=== PATIENT | male | born 1960 | race American Indian/Alaskan Native ===

== ENCOUNTER 2017-03-21 08:26 | Emergency (ER) | payer MEDICAID, MEDICARE ==
[2017-03-21 08:48] VITALS: BP 149/96; PULSE 95; RESP 18; TEMP 97.8; O2SAT 98
--- NOTE | 2017-03-21 08:58 | C.PDOC ---
History Of Present Illness 56 year old male presents to the ED requesting medication refill. Patient states insurance is pending and has been unable to see PMD. He is seeking refill of Humalog 75/25. Patient also seeking evaluation of recurrent penile rash for two weeks. Patient states "I get this from my diabetes." He has been using lotrimin over the counter of two weeks with no relief. Patient denies fever, penile discharge, itch, or other physical complaints at this time. REQUESTING MED REFILL. PS PENDING INSURANCE, UNABLE TO SEE PMD. REFILL FOR HUMALOG 75/25. ALSO CO RECUR PENILE RASH X 2 WEEKS. PS "I GET THIS FROM MY DIABETES." NO ITCH, PENILE DC, FEVER. NO RELIEF W LOTRIMIN OTC X 2 WEEKS. EXAM NAD SKIN +BALANITIS PENIS W LOCAL EXCORIATION UNCIRCUM; NO DC Time Seen by Provider: 03/21/17 08:39 Chief Complaint (Nursing): Med Refill History Per: Patient History/Exam Limitations: no limitations Onset/Duration Of Symptoms: Days (two weeks of penile rash ) Current Symptoms Are (Timing): Still Present Recent travel outside of the [place]: No Past Medical History Reviewed: Historical Data, Nursing Documentation, Vital Signs Vital Signs: Last Vital Signs Temp 97.8 F 03/21/17 08:37 Pulse 95 H 03/21/17 08:37 Resp 18 03/21/17 08:37 BP 149/96 H 03/21/17 08:37 Pulse Ox 98 03/21/17 09:00 - Medical History PMH: Gastrointestinal Ulcer Surgical History: Appendectomy Family History: States: Unknown Family Hx - Social History Hx Alcohol Use: Yes Hx Substance Use: No Review Of Systems Constitutional: Negative for: Fever, Chills Cardiovascular: Negative for: Chest Pain, Palpitations Respiratory: Negative for: Cough, Shortness of Breath Gastrointestinal: Negative for: Nausea, Vomiting, Abdominal Pain Genitourinary: Positive for: Rash (penile rash ). Negative for: Penile Discharge Physical Exam - Physical Exam Appears: Non-toxic, No Acute Distress Skin: Warm, Dry, Other ( +balanitis penis with local excoriation ) Head: Atraumatic Eye(s): bilateral: Normal Inspection Oral Mucosa: Moist Neck: Supple Chest: Symmetrical, No Deformity Cardiovascular: Rhythm Regular Respiratory: Normal Breath Sounds, No Rales, No Rhonchi, No Stridor Male Genital: No Circumcised (patient is uncircumcised), Other (no penile discharge ) ED Course And Treatment O2 Sat by Pulse Oximetry: 98 (room air ) Disposition Counseled Patient/Family Regarding: Diagnosis, Need For Followup, Rx Given - Disposition Referrals: YOUR,PMD [Other] Disposition: HOME/ ROUTINE Disposition Time: 08:59 Condition: GOOD Prescriptions: Cephalexin [cephalexin] 500 mg PO BID #14 cap Insulin Lispro Mix 75/25 [humalog Mix 75/25 75 U/Ml-25 U/Ml 10 Ml] 30 units SC Q12 #5 vial Miconazole CR [Miconazole 2% CREAM] 30 applic TP BID #1 tube Instructions: Balanitis (ED), Medicine Refill (ED) Forms: [employer] ([place]an) - Clinical Impression Clinical Impression: Balanitis, Medicine refill - Scribe Statement The provider has reviewed the documentation as recorded by the Scribe Maryana Martinez All medical record entries made by the Scribe were at my direction and personally dictated by me. I have reviewed the chart and agree that the record accurately reflects my personal performance of the history, physical exam, medical decision making, and the department course for this patient. I have also personally directed, reviewed, and agree with the discharge instructions and disposition.
== END 2017-03-21 09:21 | disposition home or self-care (01) ==
LOC: C.ER 08:26
DX: Z76.0 Encounter for issue of repeat prescription (principal); N48.1 Balanitis

== ENCOUNTER 2017-06-19 21:30 | Emergency (ER) | payer SELFPAY ==
[2017-06-19 21:45] VITALS: RESP 18
[2017-06-19 22:05] LABS: BASO % 0.9 % (0.0-2.0); EOS # 0.1 K/uL (0.0-0.7); EOS % 2.7 % (0.0-4.0); LYMPH # 2.2 K/uL (1.0-4.3); LYMPH % 44.4 % (20.0-40.0); MEAN CORPUSCULAR HEMOGLOBIN 29.4 pg (27.0-31.0); MEAN CORPUSCULAR HGB CONC 33.4 g/dL (33.0-37.0); MEAN PLATELET VOLUME 8.6 fL (7.2-11.7); MONO # 0.4 K/uL (0.0-0.8); MONO % 7.7 % (0.0-10.0); NRBC % 0.2 % (0.0-2.0); RED CELL DISTRIBUTION WIDTH 13.4 % (11.5-14.5); WHITE BLOOD COUNT 4.9 K/uL (4.8-10.8)
[2017-06-19] MEDS ORDERED: Aluminum Hydroxide/Magnesium Hydroxide Susp (30 mL) PO STA (22:10)
[2017-06-19] MEDS ORDERED: Sodium Chloride 0.9% 1,000 ML IV ONE (22:10)
[2017-06-19] MEDS ORDERED: Belladonna-Phenobarbital PO STA (22:10)
[2017-06-19 22:16] LABS: ALB/GLOB RATIO 1.3 (1.0-2.1); BILIRUBIN,TOTAL 1.1 mg/dL (0.2-1.3); CALCIUM 8.8 mg/dl (8.6-10.4); POTASSIUM 4.3 mmol/L (3.6-5.2); TOTAL PROTEIN 7.4 g/dL (6.3-8.3)
[2017-06-19] MEDS ORDERED: Belladonna-Phenobarbital ONE (22:25)
[2017-06-19] MEDS ORDERED: Sodium Chloride 0.9% 1,000 ML ONE (22:26)
[2017-06-19] MEDS ORDERED: Aluminum Hydroxide/Magnesium Hydroxide Susp (30 mL) ONE (22:26)
[2017-06-20 00:05] VITALS: BP 160/89; PULSE 73; TEMP 98; O2SAT 100
--- NOTE | 2017-06-20 01:04 | C.PDOC ---
History Of Present Illness 56 year old male with a Hx diabetes on insulin and of gastritis presents to the ER with a complaint of epigastric pain that is similar to past episodes of his gastritis flare ups. Patient reports he has been eating normally and notes he usually takes nexium. Denies chest pain, SOB, nausea, or vomiting. Chief Complaint (Nursing): Abdominal Pain History Per: Patient History/Exam Limitations: no limitations Onset/Duration Of Symptoms: Days Current Symptoms Are (Timing): Still Present Location Of Pain/Discomfort: Epigastric Radiation Of Pain To:: None Quality Of Discomfort: Unable To Describe Associated Symptoms: denies: Fever, Chills, Nausea, Vomiting, Chest Pain Exacerbating Factors: None Alleviating Factors: None Recent travel outside of the [place]: No Past Medical History Reviewed: Historical Data, Nursing Documentation, Vital Signs Vital Signs: Last Vital Signs Temp 98.0 F 06/20/17 00:04 Pulse 73 06/20/17 00:04 Resp 18 06/20/17 00:04 BP 160/89 H 06/20/17 00:04 Pulse Ox 100 06/20/17 01:07 - Medical History PMH: Gastritis, Gastrointestinal Ulcer Surgical History: Appendectomy Family History: States: Unknown Family Hx - Social History Hx Alcohol Use: Yes Hx Substance Use: Yes - Immunization History Hx Tetanus Toxoid Vaccination: Yes Hx Influenza Vaccination: No Hx Pneumococcal Vaccination: No Review Of Systems Constitutional: Negative for: Fever, Chills Cardiovascular: Negative for: Chest Pain Respiratory: Negative for: Shortness of Breath Gastrointestinal: Positive for: Abdominal Pain. Negative for: Nausea, Vomiting Physical Exam - Physical Exam Appears: Non-toxic, No Acute Distress Skin: Normal Color, Warm, Dry Head: Atraumatic, Normacephalic Eye(s): bilateral: Normal Inspection Oral Mucosa: Moist Neck: Normal, Supple Chest: Symmetrical, No Tenderness Cardiovascular: Rhythm Regular Respiratory: Normal Breath Sounds, No Rales, No Rhonchi, No Wheezing Gastrointestinal/Abdominal: Soft, No Tenderness Neurological/Psych: Oriented x3, Normal Speech, Normal Cognition ED Course And Treatment - Laboratory Results Result Diagrams: 06/19/17 22:02 06/19/17 22:02 O2 Sat by Pulse Oximetry: 100 (Room air) Pulse Ox Interpretation: Normal Progress Note: Blood work ordered. Zofran, , maalox, viscous lidocaine, IV fluids, and pepcid administered. Disposition - Disposition Referrals: [facility] [Outside] [facility] [Outside] Disposition: HOME/ ROUTINE Disposition Time: 22:50 Condition: IMPROVED Additional Instructions: Thank you for letting us take care of you today. The emergency medical care you received today was directed at your acute symptoms. If you were prescribed any medication, please fill it and take as directed. It may take several days for your symptoms to resolve. Return to the Emergency Department if your symptoms worsen, do not improve, or if you have any other problems. Please contact your doctor or call one of the physicians/clinics you have been referred to that are listed on the Patient Visit Information form that is included in your discharge packet. Bring any paperwork you were given at discharge with you along with any medications you are taking to your follow up visit. Our treatment cannot replace ongoing medical care by a primary care provider (PCP) outside of the emergency department. Thank you for allowing the [facility] team to be part of your care today. Follow up with the clinic next week for outpatient care and further management. Prescriptions: Ranitidine HCl [Zantac] 150 mg PO BID #20 tablet Instructions: Gastritis (ED) - Clinical Impression Clinical Impression: Gastritis - Scribe Statement The provider has reviewed the documentation as recorded by the Scribjamie Mohan All medical record entries made by the Laureenibjamie were at my direction and personally dictated by me. I have reviewed the chart and agree that the record accurately reflects my personal performance of the history, physical exam, medical decision making, and the department course for this patient. I have also personally directed, reviewed, and agree with the discharge instructions and disposition.
== END 2017-06-20 00:06 | disposition home or self-care (01) ==
LOC: C.ER 21:30
DX: K29.70 Gastritis, unspecified, without bleeding (principal); E11.9 Type 2 diabetes mellitus without complications; Z79.4 Long term (current) use of insulin
CPT/HCPCS: 80053; 83690; 85025; 96374; 96375; 99284; J2405; J7040

== ENCOUNTER 2017-07-31 18:59 | Emergency (ER) | payer SELFPAY ==
[2017-07-31 19:33] VITALS: TEMP 98
--- NOTE | 2017-07-31 19:51 | C.PDOC ---
History Of Present Illness 57M c/o blister on right great toe he noticed 3 days ago. he has little sensation in his feet at baseline. no fever or pain. he is also requesting refill for rx for his humalog 75/25 30units BID and also omeprazole. Time Seen by Provider: 07/31/17 19:37 Chief Complaint (Nursing): Abnormal Skin Integrity Past Medical History Vital Signs: Last Vital Signs Temp 98 F 07/31/17 19:20 Pulse 82 07/31/17 20:33 Resp 18 07/31/17 20:33 BP 156/81 H 07/31/17 20:33 Pulse Ox 98 07/31/17 20:33 - Medical History PMH: Gastritis, Gastrointestinal Ulcer Denies: Chronic Kidney Disease Surgical History: Appendectomy Family History: States: Other Other Family History: nc - Social History Hx Alcohol Use: Yes Hx Substance Use: No - Immunization History Hx Tetanus Toxoid Vaccination: Yes Hx Influenza Vaccination: No Hx Pneumococcal Vaccination: No Review Of Systems Constitutional: Negative for: Fever, Chills Cardiovascular: Negative for: Chest Pain Respiratory: Negative for: Shortness of Breath Gastrointestinal: Negative for: Nausea, Vomiting Physical Exam - Physical Exam Appears: Well, Non-toxic, No Acute Distress Skin: Warm, Dry Cardiovascular: Rhythm Regular Respiratory: No Accessory Muscle Use Extremity: Other (threre is a superficial 1cm partially exposed blister medial aspect right great toe. no erythema, swelling, or drainage.) Pulses: Right Dorsalis Pedis: Normal Neurological/Psych: Oriented x3, Other (no focal deficits) ED Course And Treatment O2 Sat by Pulse Oximetry: 99 Medical Decision Making Medical Decision Making: superficial blister without signs of infection applied protective bandage and disc w pt critical importance of daily inspection /wound care to prevent worsening ulceration and infection disc rtr. pt follows up in clinic. rx refills provided. Disposition - Disposition Referrals: [facility] [Outside] Disposition: HOME/ ROUTINE Disposition Time: 20:34 Condition: GOOD Additional Instructions: Please follow up with your doctor. Clean your wound and change bandage daily while checking for signs of infection: redness, green/yellow drainage, swelling. Return to the ER for any worsening symptoms, fever, signs of infection , or for any other concerns. Prescriptions: Insulin Lispro Mix 75/25 [HumaLog MIX 75/25] 30 units SC BID #4 vial Omeprazole 40 mg PO DAILY #30 capsule. Instructions: Diabetic Foot Care (ED), Diabetic Foot Ulcers (ED) Forms: General Discharge Instructions, [facility] (Citizen Of [place]) - Clinical Impression Clinical Impression: Beena
[2017-07-31] MEDS ORDERED: Bacitracin 500 Units/gm Oint Foilpak UD ONE (20:21)
[2017-07-31 20:34] VITALS: BP 156/81; PULSE 82; RESP 18
[2017-08-07 13:56] VITALS: O2SAT 99
== END 2017-07-31 20:34 | disposition home or self-care (01) ==
LOC: C.ER 18:59
DX: S90.421A Blister (nonthermal), right great toe, initial encounter (principal); X58.XXXA Exposure to other specified factors, initial encounter

== ENCOUNTER 2017-08-20 00:22 | Inpatient (IN) | payer MEDICARE ==
[2017-08-20] MEDS ORDERED: Sodium Chloride 0.9% 1,000 ML IV ONE (00:48)
[2017-08-20] MEDS ORDERED: Cefepime 1 GM in Sodium Chloride 0.9% 50 ML IVPB STA (00:51)
[2017-08-20] MEDS ORDERED: Vancomycin 1 GM 1 GM/250 ML BAG IV STA (00:51)
[2017-08-20] MEDS ORDERED: Vancomycin 1 gm/NS 200 ml 1 GM/200 ML BAG IVPB STA (00:59)
[2017-08-20] MEDS ORDERED: Cefepime IV 1 gm in Dextrose 1 GM/50 ML BAG IVPB ONE (01:00)
[2017-08-20] MEDS ORDERED: Sodium Chloride 0.9% 1,000 ML ONE (01:01)
[2017-08-20 01:10] LABS: VENOUS BLOOD GAS BASE EXCESS 4.8 mmol/L (0.0-2.0); VENOUS BLOOD GAS PCO2 60 mmHg (40-60); VENOUS BLOOD GAS PO2 18 mm/Hg (30-55); VENOUS BLOOD PH 7.34 (7.32-7.43)
[2017-08-20 01:16] LABS: BASO % 0.7 % (0.0-2.0); EOS # 0.1 K/uL (0.0-0.7); EOS % 2.4 % (0.0-4.0); HEMOGLOBIN 13.7 g/dL (12.0-18.0); LYMPH # 1.9 K/uL (1.0-4.3); LYMPH % 39.9 % (20.0-40.0); MEAN CELL VOLUME 86.1 fL (80.0-94.0); MEAN CORPUSCULAR HEMOGLOBIN 28.8 pg (27.0-31.0); MEAN CORPUSCULAR HGB CONC 33.5 g/dL (33.0-37.0); MEAN PLATELET VOLUME 8.2 fL (7.2-11.7); MONO # 0.3 K/uL (0.0-0.8); NEUT # 2.3 K/uL (1.8-7.0); NRBC % 0.1 % (0.0-2.0); RBC 4.75 Mil/uL (4.40-5.90); RED CELL DISTRIBUTION WIDTH 13.1 % (11.5-14.5); WHITE BLOOD COUNT 4.7 K/uL (4.8-10.8)
[2017-08-20 01:28] LABS: ALB/GLOB RATIO 1.1 (1.0-2.1); ALBUMIN 3.9 g/dL (3.5-5.0); ALT/SGPT 21 U/L (21-72); AST/SGOT 22 U/L (17-59); BLOOD UREA NITROGEN 22 mg/dL (9-20); CALCIUM 8.3 mg/dl (8.6-10.4); GFR AFRICAN-AMERICAN > 60; GFR NON-AFRICAN AMERICAN > 60
[2017-08-20] MEDS ORDERED: (Novolin R) Insulin Human Regular 100 units/ml vial IV STA (02:00)
[2017-08-20] MEDS ORDERED: (Novolin R) Insulin Human Regular 100 units/ml vial ONE (02:07)
--- NOTE | 2017-08-20 02:59 | C.PDOC ---
History Of Present Illness Patient presents to ED c/o right big toe wound for approx 1 month. Patient has h/o DM II, gastritis, PUD, prior osteomyelitis and toe amputation (Dr. Little). He states the wound has become more painful, swollen and is draining. He denies fever, trauma/injuries. Time Seen by Provider: 08/20/17 00:24 Chief Complaint (Nursing): Lower Extremity Problem/Injury History Per: Patient History/Exam Limitations: no limitations Current Symptoms Are (Timing): Still Present Severity: Moderate Past Medical History Reviewed: Historical Data, Nursing Documentation, Vital Signs Vital Signs: Last Vital Signs Temp 98 F 08/20/17 00:34 Pulse 74 08/20/17 00:34 Resp 18 08/20/17 00:34 BP 127/83 08/20/17 00:34 Pulse Ox 98 08/20/17 03:07 - Medical History PMH: Diabetes, Gastritis, Gastrointestinal Ulcer Other PMH: osteomyelitis Surgical History: Appendectomy Family History: States: No Known Family Hx - Social History Hx Alcohol Use: Yes Hx Substance Use: No - Immunization History Hx Tetanus Toxoid Vaccination: Yes Hx Influenza Vaccination: No Hx Pneumococcal Vaccination: No Review Of Systems Except As Marked, All Systems Reviewed And Found Negative. Constitutional: Negative for: Fever, Chills Cardiovascular: Negative for: Chest Pain Respiratory: Negative for: Shortness of Breath Neurological: Positive for: Other (right toe pain, swelling, wound) Physical Exam - Physical Exam Appears: Well, Non-toxic, In Acute Distress (in mild pain ) Oral Mucosa: Moist Cardiovascular: Rhythm Regular Respiratory: Normal Breath Sounds, No Rales, No Rhonchi, No Wheezing Extremity: Tenderness, No Pedal Edema, No Calf Tenderness, Other (right first toe - medial aspect approx 1.5 cm wound with surrounding erythema and swelling) Pulses: Left Dorsalis Pedis: Normal, Right Dorsalis Pedis: Normal Neurological/Psych: Oriented x3 ED Course And Treatment - Laboratory Results Result Diagrams: 08/20/17 01:03 08/20/17 01:03 O2 Sat by Pulse Oximetry: 98 (RA) Pulse Ox Interpretation: Normal Progress Note: Blood work, Xray of foot ordered and reviewed. Patient given IV Vancomycin, IV cefepime. Patient has previously seen Dr. Little for podiatry and Dr. Vaughan (PMD), but has not done so in months due to insurance issues. - Physician Consult Information Physician Contacted: Kaushik Diego Outcome Of Conversation: Discussed patient with hospitalist, agrees with admission for right toe cellulitis/diabetic wound, possible osteomyelitis. Disposition - Disposition Referrals: Non [facility] Provider, [Primary Care Provider] - Forms: [employer] (Croatian)
--- NOTE | 2017-08-20 04:33 | CP.PCM.HP ---
<Chai Gastelum E - Last Filed: 08/20/17 04:53> History of Present Illness - History of Present Illness History of Present Illness: CC: Right Hallux wound and drainage HPI: Patient is a 57 year old male with past medical history of DM, gastritis, pud, b/l halluces osteomyelitis, who presents to the ED with complaints of right hallux wound and drainage that has been going on for approximately 3 weeks. Patient was evaluated in the ED on 07/31/17 for the same complaints and was discharge with instruction to keep the wound clean with peroxide & Neosporin with daily dressing changes. Upon discharge from the ED on 07/31/16, patient was given prescription for humalog 70/30 30 units SC BID and omeprazole 40mg PO daily. Patient states that his right hallux wound has worsened with mild clear malodorous discharge. Patient denies fever, chills, nausea, vomiting , headache, chest pain, palpitation, SOB, abdominal pain, recent travel or sickness, polydispia, polyphagia, polyuria and pain. Patient does admits to right hallux swelling, numbness and tingling, mild decrease of sensation and clear malodorous discharge. PMD: None for the past 6 months- 1 year. Patient was given an appointment for at the [facility] but did not make it to the appointment PMHx: DM, gastritis, pud, b/l halluces osteomyelitis, PSHx: Right 2nd toe amputations (By Dr. Little), Appendectomy, B/L halluces infected bone removal FHx: Father and Sister ( DM); Maternal family: HTN and maternal grandmother: CVA Medications: humalog 70/30 30 units SC BID and omeprazole 40mg PO daily as prescribed by the ED Allergies: NKDA Social Hx : Lives with fiance, unemployed. 30 years tobacco use ( 1PPD, quit smoking 6 years ago), 2 beers and 2 shot of whiskey daily, 15 yrs use of marijuan and cocaine intranasal Present on Admission - Present on Admission Any Indicators Present on Admission: Yes History of Uncontrolled Diabetes: Yes Review of Systems - Constitutional Constitutional: absent: Chills, Fatigue, Fever, Headache, Weakness - EENT Eyes: absent: Blurred Vision - Cardiovascular Cardiovascular: absent: Chest Pain, Chest Pain at Rest, Chest Pain with Activity , Diaphoresis, Dyspnea, Dyspnea on Exertion, Palpitations - Respiratory Respiratory: absent: Dyspnea - Gastrointestinal Gastrointestinal: absent: Abdominal Pain, Nausea, Vomiting - Musculoskeletal Musculoskeletal: Numbness, Tingling - Neurological Neurological: Numbness, Paresthesias, Tingling, Weakness - Endocrine Endocrine: absent: Fatigue, Palpitations, Polydipsia, Polyphagia, Polyuria Past Patient History - Infectious Disease Hx of Infectious Diseases: None - Past Social History Smoking Status: Former Smoker - CARDIAC Hx Cardiac Disorders: No - PULMONARY Hx Respiratory Disorders: No - NEUROLOGICAL Hx Neurological Disorder: No - HEENT Hx HEENT Problems: No - RENAL Hx Chronic Kidney Disease: No - ENDOCRINE/METABOLIC Hx Endocrine Disorders: Yes Hx Diabetes Mellitus Type 2: Yes - HEMATOLOGICAL/ONCOLOGICAL Hx Blood Disorders: No - INTEGUMENTARY Hx Dermatological Problems: No - MUSCULOSKELETAL/RHEUMATOLOGICAL Hx Musculoskeletal Disorders: No - GASTROINTESTINAL Hx Gastritis: Yes - GENITOURINARY/GYNECOLOGICAL Hx Genitourinary Disorders: No - PSYCHIATRIC Hx Substance Use: No - SURGICAL HISTORY Hx Appendectomy: Yes - ANESTHESIA Hx Anesthesia: Yes Hx Anesthesia Reactions: No Meds Allergies/Adverse Reactions: Allergies Allergy/AdvReac Type Severity Reaction Status Date / Time No Known Allergies Allergy Verified 08/20/17 00:29 Physical Exam - Constitutional Appears: No Acute Distress - Head Exam Head Exam: ATRAUMATIC, NORMAL INSPECTION - Eye Exam Eye Exam: EOMI, Normal appearance - ENT Exam ENT Exam: Mucous Membranes Moist - Respiratory Exam Respiratory Exam: Clear to Auscultation Bilateral, NORMAL BREATHING PATTERN. absent: Decreased Breath Sounds, Rhonchi, Wheezes, Respiratory Distress - Cardiovascular Exam Cardiovascular Exam: REGULAR RHYTHM, +S1, +S2. absent: Diastolic murmur, Systolic Murmur - GI/Abdominal Exam GI & Abdominal Exam: Normal Bowel Sounds, Soft. absent: Distended, Guarding, Organomegaly, Tenderness - Extremities Exam Additional comments: Right toe mildly warm to touch, mild drainage and swollen - Back Exam Back exam: absent: CVA tenderness (L), CVA tenderness (R) - Neurological Exam Neurological exam: Alert, Oriented x3 - Psychiatric Exam Psychiatric exam: Normal Affect - Skin Skin Exam: Intact, Normal Color Results - Vital Signs Recent Vital Signs: Last Vital Signs Temp 98 F 08/20/17 00:34 Pulse 74 08/20/17 00:34 Resp 18 02/02/18 00:34 BP 127/83 08/20/17 00:34 Pulse Ox 98 08/20/17 03:09 - Labs Result Diagrams: 08/20/17 01:03 08/20/17 01:03 Labs: Laboratory Results - last 24 hr 08/20/17 08/20/17 08/20/17 00:33 01:03 01:03 WBC 4.7 L RBC 4.75 Hgb 13.7 Hct 40.9 MCV 86.1 MCH 28.8 MCHC 33.5 RDW 13.1 Plt Count 338 MPV 8.2 Neut % (Auto) 50.0 Lymph % (Auto) 39.9 Sanders % (Auto) 7.0 Eos % (Auto) 2.4 Baso % (Auto) 0.7 Neut # (Auto) 2.3 Lymph # (Auto) 1.9 Sanders # (Auto) 0.3 Eos # (Auto) 0.1 Baso # (Auto) 0.0 ESR 45 H pO2 VBG pH VBG pCO2 VBG HCO3 VBG Total CO2 VBG O2 Sat (Calc) VBG Base Excess VBG Potassium Glucose Lactate Crit Value Called To Crit Value Called By Crit Value Read Back Blood Gas Notified Time Sodium 133 Potassium 4.4 Chloride 93 L Carbon Dioxide 29 Anion Gap 15 BUN 22 H Creatinine 1.1 Est GFR ( Amer) > 60 Est GFR (Non-Af Amer) > 60 POC Glucose (mg/dL) 414 H* Random Glucose 432 H* D Serum Osmolality Calcium 8.3 L Total Bilirubin 0.7 AST 22 ALT 21 D Alkaline Phosphatase 139 H D Total Protein 7.4 Albumin 3.9 Globulin 3.4 Albumin/Globulin Ratio 1.1 Venous Blood Potassium Serum Ketones Negative 08/20/17 08/20/17 01:03 01:05 WBC RBC Hgb Hct MCV MCH MCHC RDW Plt Count MPV Neut % (Auto) Lymph % (Auto) Sanders % (Auto) Eos % (Auto) Baso % (Auto) Neut # (Auto) Lymph # (Auto) Sanders # (Auto) Eos # (Auto) Baso # (Auto) ESR pO2 18 L VBG pH 7.34 VBG pCO2 60 VBG HCO3 26.7 VBG Total CO2 34.2 H VBG O2 Sat (Calc) 30.5 L VBG Base Excess 4.8 H VBG Potassium 4.0 Glucose 413 H* Lactate 0.9 Crit Value Called To Chanelle power/rn Crit Value Called By Gaudencio orona/rt Crit Value Read Back Y Blood Gas Notified Time 115 Sodium 135.0 Potassium Chloride 97.0 L Carbon Dioxide Anion Gap BUN Creatinine Est GFR ( Amer) Est GFR (Non-Af Amer) POC Glucose (mg/dL) Random Glucose Serum Osmolality 311 H Calcium Total Bilirubin AST ALT Alkaline Phosphatase Total Protein Albumin Globulin Albumin/Globulin Ratio Venous Blood Potassium 4.0 Serum Ketones Assessment & Plan (1) Diabetic ulcer of right foot Assessment and Plan: [employer] consult, Dr. Litlte---> help appreciated Imaging: f/u right foot x-ray f/u right foot MRI Labs: * F/u right hallux wound culture * F/u blood culture * HgbA1c Medications: Cefepime 1gm IV daily Vanco 1gm iv daily Status: Acute (2) Diabetes mellitus Assessment and Plan: On admission: Blood glucose: 432 f/U HgbA1C Management: ISS - High dose Accuchecks Diabetic diet Diabetic education referral Status: Acute (3) Prophylactic measure Assessment and Plan: GI: Protonix 40mg PO daily DVT: SCDs Status: Acute <Kaushik Diego - Last Filed: 08/20/17 06:16> Results - Vital Signs Recent Vital Signs: Last Vital Signs Temp 94.7 F L 08/20/17 04:51 Pulse 65 08/20/17 04:51 Resp 20 08/20/17 04:51 BP 156/98 H 08/20/17 05:04 Pulse Ox 97 08/20/17 04:51 - Labs Result Diagrams: 08/20/17 01:03 08/20/17 01:03 Labs: Laboratory Results - last 24 hr 08/20/17 08/20/17 08/20/17 00:33 01:03 01:03 WBC 4.7 L RBC 4.75 Hgb 13.7 Hct 40.9 MCV 86.1 MCH 28.8 MCHC 33.5 RDW 13.1 Plt Count 338 MPV 8.2 Neut % (Auto) 50.0 Lymph % (Auto) 39.9 Sanders % (Auto) 7.0 Eos % (Auto) 2.4 Baso % (Auto) 0.7 Neut # (Auto) 2.3 Lymph # (Auto) 1.9 Sanders # (Auto) 0.3 Eos # (Auto) 0.1 Baso # (Auto) 0.0 ESR 45 H pO2 VBG pH VBG pCO2 VBG HCO3 VBG Total CO2 VBG O2 Sat (Calc) VBG Base Excess VBG Potassium Glucose Lactate Crit Value Called To Crit Value Called By Crit Value Read Back Blood Gas Notified Time Sodium 133 Potassium 4.4 Chloride 93 L Carbon Dioxide 29 Anion Gap 15 BUN 22 H Creatinine 1.1 Est GFR ( Amer) > 60 Est GFR (Non-Af Amer) > 60 POC Glucose (mg/dL) 414 H* Random Glucose 432 H* D Serum Osmolality Calcium 8.3 L Total Bilirubin 0.7 AST 22 ALT 21 D Alkaline Phosphatase 139 H D Total Protein 7.4 Albumin 3.9 Globulin 3.4 Albumin/Globulin Ratio 1.1 Venous Blood Potassium Serum Ketones Negative 08/20/17 08/20/17 08/20/17 01:03 01:05 04:42 WBC RBC Hgb Hct MCV MCH MCHC RDW Plt Count MPV Neut % (Auto) Lymph % (Auto) Sanders % (Auto) Eos % (Auto) Baso % (Auto) Neut # (Auto) Lymph # (Auto) Sanders # (Auto) Eos # (Auto) Baso # (Auto) ESR pO2 18 L VBG pH 7.34 VBG pCO2 60 VBG HCO3 26.7 VBG Total CO2 34.2 H VBG O2 Sat (Calc) 30.5 L VBG Base Excess 4.8 H VBG Potassium 4.0 Glucose 413 H* Lactate 0.9 Crit Value Called To Chanelle power/rn Crit Value Called By Gaudencio orona/rt Crit Value Read Back Y Blood Gas Notified Time 115 Sodium 135.0 Potassium Chloride 97.0 L Carbon Dioxide Anion Gap BUN Creatinine Est GFR ( Amer) Est GFR (Non-Af Amer) POC Glucose (mg/dL) 191 H Random Glucose Serum Osmolality 311 H Calcium Total Bilirubin AST ALT Alkaline Phosphatase Total Protein Albumin Globulin Albumin/Globulin Ratio Venous Blood Potassium 4.0 Serum Ketones Assessment & Plan - Date & Time Date: 08/20/17 (I have seen and examined the patient. I agree with the findings and plan of care as documented by Dr. aGstelum. Patient with diabetic foot ulcer. Prior issues with osteo. Cefepime and Vanco started in ED. Continue meds. Consult to podiatry. For history of diabetes, accuchecks and NISS. Patient noncompliant with meds. Will need working regimen prior to discharge. Monitor for acute changes.) Time: 06:14 Attending/Attestation - Attestation I have personally seen and examined this patient.: Yes I have fully participated in the care of the patient.: Yes I have reviewed all pertinent clinical information: Yes
[2017-08-20] MEDS ORDERED: Vancomycin 1 gm/NS 200 ml 1 GM/200 ML BAG IVPB SCH (05:00)
--- NOTE | 2017-08-20 07:30 | CP.PCM.PN ---
<Adama Nichole - Last Filed: 08/20/17 18:46> Subjective - Date & Time of Evaluation Date of Evaluation: 08/20/17 Time of Evaluation: 11:30 - Subjective Subjective: Medicine progress note for Dr. Munroe Patient seen and examined at bedside. Patient reports that he was unable to be compliant with medications due to the high cost of his insulin. He last took it yesterday morning. Patient reporting chronic decreased sensation in his feet. Patient denies pain in the toe. Denies fever, chills, chest pain, dyspnea, abdominal pain, dysuria. Objective - Vital Signs/Intake and Output Vital Signs (last 24 hours): Temp Pulse Resp BP Pulse Ox 94.7 F L 65 20 156/98 H 97 08/20/17 04:51 08/20/17 04:51 08/20/17 04:51 08/20/17 05:04 08/20/17 04:51 - Medications Medications: Current Medications Cefepime HCl (Maxipime Iv 1 Gm Premix) 1 gm in 50 mls @ 100 mls/hr IVPB Q24H [facility] Vancomycin/Sodium Chloride (Vancomycin 1 Gm/Ns 200 Ml) 1 gm in 200 mls @ 166.7 mls/hr IVPB Q24H [facility] Stop: 08/25/17 05:01 Last Admin: 08/20/17 05:45 Dose: 166.7 mls/hr Pantoprazole Sodium (Protonix Ec Tab) 40 mg PO DAILY [facility] - Labs Labs: 08/20/17 01:03 08/20/17 01:03 - Constitutional Appears: No Acute Distress - Head Exam Head Exam: ATRAUMATIC, NORMOCEPHALIC - Eye Exam Eye Exam: EOMI, Normal appearance - ENT Exam ENT Exam: Mucous Membranes Moist - Respiratory Exam Respiratory Exam: Clear to Ausculation Bilateral, NORMAL BREATHING PATTERN. absent: Rales, Rhonchi, Wheezes - Cardiovascular Exam Cardiovascular Exam: REGULAR RHYTHM, +S1, +S2 - GI/Abdominal Exam GI & Abdominal Exam: Soft, Normal Bowel Sounds. absent: Distended, Guarding, Tenderness - Extremities Exam Extremities Exam: absent: Pedal Edema, Tenderness Additional comments: Pedal pulses intact. Right hallux ulcerous lesion. Elongated nails bilaterally. Amputation of the 2nd toe of the right foot. - Neurological Exam Neurological Exam: Alert, Awake, Oriented x3 - Psychiatric Exam Psychiatric exam: Normal Affect, Normal Mood - Skin Skin Exam: Dry, Warm Assessment and Plan - Assessment and Plan (Free Text) Plan: Diabetic ulcer of right foot Right foot MRI: acute osteomyelitis Hemoglobin A1C 10.6 Medications: Cefepime 1gm IV daily Vanco 1gm iv daily ID consult, Dr. Downing, help appreciated Podiatry consult, Dr. Rodgers, help appreciated. Partial amputation of hallux planned tentatively for Wednesday08/23/17 pending cardiac and medical clearance Diabetes mellitus ISS - High dose Accuchecks NPH/Regular 20 units SC BID, will titrate up as needed in the coming days Diabetic diet Diabetic education referral Newly Diagnosed Hypertension Losartan 50 mg PO daily started Cardiology consult, Dr. Stephen, help appreciated. Consulted for cardiac clearance and baseline cardiac assessment f/u EKG f/u echo Prophylactic measure GI: Protonix 40mg PO daily DVT: SCDs Case DW Dr. Shaneka Nichole PGY-1 <Cecille Munroe V - Last Filed: 08/20/17 22:08> Objective - Vital Signs/Intake and Output Vital Signs (last 24 hours): Temp Pulse Resp BP Pulse Ox 97.8 F 66 20 172/96 H 98 08/20/17 16:41 08/20/17 16:41 08/20/17 16:41 08/20/17 16:41 08/20/17 16:41 Intake and Output: 08/20/17 08/21/17 18:59 06:59 Intake Total 500 Balance 500 - Medications Medications: Current Medications Enoxaparin Sodium (Lovenox) 40 mg SC DAILY [facility] Last Admin: 08/20/17 10:30 Dose: Not Given Cefepime HCl (Maxipime Iv 1 Gm Premix) 1 gm in 50 mls @ 100 mls/hr IVPB Q24H [facility] Vancomycin/Sodium Chloride (Vancomycin 1 Gm/Ns 200 Ml) 1 gm in 200 mls @ 166.7 mls/hr IVPB Q24H [facility] Stop: 08/25/17 05:01 Last Admin: 08/20/17 05:45 Dose: 166.7 mls/hr Insulin Human Isoph/Insulin Regular (Novolin 70/30 (70/30 Units/Ml) 10 Ml) 20 units SC Q12 [facility] Insulin Human Regular (Novolin R) 0 unit SC ACHS [facility] PRN Reason: Protocol Last Admin: 08/20/17 17:30 Dose: 6 unit Losartan Potassium (Cozaar) 50 mg PO BID [facility] Pantoprazole Sodium (Protonix Ec Tab) 40 mg PO DAILY [facility] Last Admin: 08/20/17 10:30 Dose: 40 mg - Labs Labs: 08/20/17 01:03 08/20/17 01:03 PT 10.5 SECONDS (9.7-12.2) 08/20/17 07:54 INR 0.9 08/20/17 07:54 APTT 34 SECONDS (21-34) 08/20/17 07:54 Attending/Attestation - Attestation I have personally seen and examined this patient.: Yes I have fully participated in the care of the patient.: Yes I have reviewed all pertinent clinical information, including history, physical exam and plan: Yes Notes (Text): Patient seen, examined, and case discussed with day-time resident. patient seen this afternoon with his fiance at bedside. Patient with history of diabetes, on insulin, with history of 2nd digit (right) amputation and b/l big toe debridement. 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 Patient with known history of diabetes, without prior diagnosis of hypertension. Podiatry, infectious disease, and cardiology consulted on the case MRI confirms acute osteomyelitis Discussed with the patient that will need IV antibiotics to prevent bacteremia and/or sepsis and likely podiatric procedure. Plan for procedure to be discussed between podiatry and patient. Assessment/Plan (1) Acute Osteomyelitis Diabetic ulcer of right foot Assessment and Plan: * Hatch Supervisor consult, Dr. Edu Rodgers-->help appreciated * Infectious disease, Dr. Downing-->help appreciated * Cardiology, Dr. Stephen-->help appreciated * Stress test for 08/23/17 * Tentative schedule for OR, 08/24/17 for partial amputation-->discussed with attendings. * Pending EKG and echocardiogram * Chest xray (08/20/17): no active disease * Foot Xray (08/20/17): no definite radiographic evidence of acute osteomyelitis * MRI (08/20/17): prominent soft tissue ulceration and defect noted at the level of the 1st distal phalanx. Cortical irregularity with signal changes noted within the adjacent marrow of the 1st distal phalanx with decreased T1 signal and increased STIR signal concerning for acute osteomyelitis. Mild signal changed noted at the articular surface at he head of the 1st proximal phalax demonstrating some patchy decreased T1 signal with increased STIR signal. Osteochondral change however developing early acute osteomyelitis at this level cannot entirely be excluded. Clinical correlation. Mild hallux valgus deformity. Resection of the 2nd digit to the metatarsal head. * Cefepime 1 gram IVPB Q24H-->changed to Cefepime 2gram IVPB Q12H (active since 08/20/17) * Vancomycin 1 gram IVPB Q12H (active since 08/20/17) * Florastor 250mg PO BID Status: Acute (2) Uncontrolled Diabetes mellitus Assessment and Plan: * Hgba1c: 10.6 * Start Novolin 70/30 20 units [id number] * Start Novolog insulin sliding scale subq (Medium dose) * Monitor how much of insulin sliding scale is used over 24hours and adjust AM/ PM insulin * Will hold Aspirin in light of possible podiatric procedure * Start Cozaar 50mg PO BID (hold SBP<100) * Accuchecks QAC and HS * Diabetic diet * Diabetic education referral Status: Acute (3) Newly Diagnosed Hypertension Assessment and Plan: * Cardiology consult, Dr. Stephen, help appreciated. Consulted for cardiac clearance and baseline cardiac assessment * Start Losartan 50 mg PO BID (hold SBP<100) * f/u echo * f/u EKG * hold aspirin in light of pending podiatric procedure (4) Prophylactic measure Assessment and Plan: * GI: Protonix 40mg PO daily * DVT: SCDs, Lovenox 40mg subqdaily Status: Acute Disposition: Optimize sugar control. Patient is pending stress test for cardiology risk assessment prior to podiatric procedure. Tentative plan for 08/23- 08/24 for podiatric procedure
[2017-08-20 08:12] LABS: INR 0.9; PROTHROMBIN TIME 10.5 SECONDS (9.7-12.2)
[2017-08-20 08:14] LABS: HDL CHOLESTEROL 55 mg/dL (30-70)
[2017-08-20 08:25] LABS: LDL CHOLESTEROL 70 mg/dL (0-129)
--- NOTE | 2017-08-20 10:29 | MRI ---
MRI right forefoot History: Osteomyelitis. Comparison: None available. Technique: Multi-echo multiplanar sequences were performed through the right forefoot without the use of intravenous contrast. Findings: Prominent soft tissue ulceration and defect noted at the level of the 1st distal phalanx. Cortical irregularity with signal changes noted within the adjacent marrow of the 1st distal phalanx with decreased T1 signal and increased STIR signal concerning for an acute osteomyelitis. Mild signal change noted at the articular surface at the head of the 1st proximal phalanx demonstrating some patchy decreased T1 signal with increased STIR signal. This may be the sequelae of osteochondral change however developing early acute osteomyelitis at this level cannot entirely be excluded. Clinical correlation. Mild hallux valgus deformity. Resection of the 2nd digit to the metatarsal head. Impression: 1. Prominent soft tissue ulceration and defect noted at the level of the 1st distal phalanx. 2. Cortical irregularity with signal changes noted within the adjacent marrow of the 1st distal phalanx with decreased T1 signal and increased STIR signal concerning for an acute osteomyelitis. 3. Mild signal change noted at the articular surface at the head of the 1st proximal phalanx demonstrating some patchy decreased T1 signal with increased STIR signal. This may be the sequelae of osteochondral change however developing early acute osteomyelitis at this level cannot entirely be excluded. Clinical correlation. 4. Mild hallux valgus deformity. 5. Resection of the 2nd digit to the metatarsal head.
[2017-08-20] MEDS: Pantoprazole 40 mg EC Tab PO SCH (10:30)
[2017-08-20] MEDS: Enoxaparin 40 mg Syringe SC SCH ×2 (10:30)
[2017-08-20] MEDS: (Novolin R) Insulin Human Regular 100 units/ml vial SC SCH ×3 (12:51→21:54)
--- NOTE | 2017-08-20 13:19 | RAD ---
PROCEDURE: Radiographs of the left great toe. TECHNIQUE:: AP radiograph of the left foot, with oblique and lateral view of the left great toe. COMPARISON: None. FINDINGS: BONES: The patient is status post amputation of the 2nd toe. There is irregularity noted at the distal and the tip of the distal phalanx of the right big toe likely represent old injury or old infectious process. No evidence of focal periosteal thickening or erosion to suggest acute/ active osteomyelitis. JOINTS: Mild arthritic changes. SOFT TISSUES: Soft tissue swelling seen at the PICC right tube. OTHER FINDINGS: None. IMPRESSION: No definite radiographic evidence of acute osteomyelitis
--- NOTE | 2017-08-20 15:36 | RAD ---
HISTORY: preadmission COMPARISON: No prior. FINDINGS: LUNGS: No active pulmonary disease. PLEURA: No significant pleural effusion identified, no pneumothorax apparent. CARDIOVASCULAR: Normal. OSSEOUS STRUCTURES: No significant abnormalities. VISUALIZED UPPER ABDOMEN: Normal. OTHER FINDINGS: None. IMPRESSION: No active disease.
--- NOTE | 2017-08-20 17:59 | CP.PCM.CON ---
<Azael Benoitezra - Last Filed: 08/20/17 18:10> History of Present Illness - History of Present Illness History of Present Illness: Cardiology consult note for Dr. Zafar Benoit DO, PGY - 1 Reason For Consult: Pre-op clearance, baseline cardiac function HPI: 57 year old black male with past medical history of diabetes and newly diagnosed hypertension presents with 3 week duration of right toe infection. Cardiology is consulted for preop clearance and baseline cardiac function. Patient states that he is able to walk several miles without getting short of breath or fatigued, and he states that he is in good physical shape. He is active around the house and is able to complete all IADL's. Patient has never seen a sorter packer, has never had an ECHO, a stress test, or a cardiac catheterization. PMD: None for the past 6 months- 1 year. Patient was given an appointment for 08/12/17 at the [facility] but did not make it to the appointment PMHx: DM, gastritis, pud, b/l halluces osteomyelitis, PSHx: Right 2nd toe amputations (By Dr. Little), Appendectomy, B/L halluces infected bone removal FHx: Father and Sister ( DM); Maternal family: HTN and maternal grandmother: CVA Medications: humalog 70/30 30 units SC BID and omeprazole 40mg PO daily as prescribed by the ED Allergies: NKDA Social Hx : Lives with fiance, unemployed. 30 years tobacco use ( 1PPD, quit smoking 6 years ago), 2 beers and 2 shot of whiskey daily, 15 yrs use of marijuana and cocaine intranasal, but not any longer Review of Systems: Constitutional: patient denies fever, chills, generalized weakness ENT: patient denies dysphagia, otalgia, hearing deficit, rhinorrhea Eyes: patient denies sudden loss of vision, diplopia, blurred vision MSK: patient denies muscle stiffness, joint pain, extremity cramping Cardio: patient denies shortness of breath, heart murmur, chest pain Pulm: patient denies cough, hemoptysis, wheeze Gastrointestinal: patient denies loss of appetite, pain, constipation, melena , nausea, vomiting, diarrhea Genitourinary: patient denies burning on urination, urinary frequency, hematuria, urinary urgency Neuro: patient denies paresis, paresthesia, dizziness, headache, numbness , tingling Derm: patient denies skin changes, lesions, nail changes Endo: patient denies intolerance to heat/cold, diaphoresis, night sweats, polydipsia Psych: patient denies anxiety, depression, mood changes Past Patient History - Infectious Disease Hx of Infectious Diseases: None - Past Medical History & Family History Past Medical History?: Yes - Past Social History Smoking Status: Former Smoker - CARDIAC Hx Cardiac Disorders: No - PULMONARY Hx Respiratory Disorders: No - NEUROLOGICAL Hx Neurological Disorder: No - HEENT Hx HEENT Problems: No - RENAL Hx Chronic Kidney Disease: No - ENDOCRINE/METABOLIC Hx Endocrine Disorders: Yes Hx Diabetes Mellitus Type 2: Yes - HEMATOLOGICAL/ONCOLOGICAL Hx Blood Disorders: No - INTEGUMENTARY Hx Dermatological Problems: No - MUSCULOSKELETAL/RHEUMATOLOGICAL Hx Musculoskeletal Disorders: No Hx Falls: No - GASTROINTESTINAL Hx Gastritis: Yes - GENITOURINARY/GYNECOLOGICAL Hx Genitourinary Disorders: No - PSYCHIATRIC Hx Substance Use: No - SURGICAL HISTORY Hx Amputation: Yes Hx Appendectomy: Yes - ANESTHESIA Hx Anesthesia: Yes Hx Anesthesia Reactions: No Meds Allergies/Adverse Reactions: Allergies Allergy/AdvReac Type Severity Reaction Status Date / Time No Known Allergies Allergy Verified 08/20/17 00:29 - Medications Medications: Current Medications Enoxaparin Sodium (Lovenox) [address] [facility] Last Admin: 08/20/17 10:30 Dose: Not Given Cefepime HCl (Maxipime Iv 1 Gm Premix) 1 gm in 50 mls @ 100 mls/hr IVPB Q24H [facility] Vancomycin/Sodium Chloride (Vancomycin 1 Gm/Ns 200 Ml) 1 gm in 200 mls @ 166.7 mls/hr IVPB Q24H [facility] Stop: 08/25/17 05:01 Last Admin: 08/20/17 05:45 Dose: 166.7 mls/hr Insulin Human Isoph/Insulin Regular (Novolin 70/30 (70/30 Units/Ml) 10 Ml) [address] [facility] Insulin Human Regular (Novolin R) [address] [facility] PRN Reason: Protocol Last Admin: 08/20/17 12:51 Dose: 12 unit Losartan Potassium (Cozaar) [address] [facility] Last Admin: 08/20/17 15:27 Dose: 50 mg Pantoprazole Sodium (Protonix Ec Tab) [address] [facility] Last Admin: 08/20/17 10:30 Dose: 40 mg Physical Exam - Additional Findings Additional findings: Physical Exam: Vital Signs as below Const'l: Patient is visibly dry; awake alert & oriented x 4, no acute distress Head/Neck: neck supple, no jvd, trachea midline, carotid midline, no cervical /head mass Eyes: pupils equally reactive to light and accommodation, nonicteric sclera, extraocular intact ENT: auditory acuity grossly intact, throat not congested, no nasal deformity Cardio: regular rate, regular rhythm, no murmurs rubs gallops, no carotid bruit, normal s1, s2 Pulm: no accessory muscle use, equal normal breath sounds bilaterally, clear to ausculation bilaterally Abd: soft non tender non-distended, normal bowel sounds x 4 quadrants, no palpable masses Derm: no rashes, no ulcers, no lesions Extr: +Patient visibly dry; +Severe erythema, discharge, infection on R hallux and R second toe; no edema, no cyanosis, no calf tenderness, no lesions, no varicosities Neuro: cranial nerves II-XII grossly intact, upper extremity and lower extremity 5/5 muscle strength bilaterally, no loss of sensation in upper extremities, lower extremities bilaterally and core Results - Vital Signs Recent Vital Signs: Last Vital Signs Temp 97.8 F 08/20/17 16:41 Pulse 66 08/20/17 16:41 Resp 20 08/20/17 16:41 BP 172/96 H 08/20/17 16:41 Pulse Ox 98 08/20/17 16:41 - Labs Result Diagrams: 08/20/17 01:03 08/20/17 01:03 Labs: Laboratory Results - last 24 hr 08/20/17 08/20/17 08/20/17 00:33 01:03 01:03 WBC 4.7 L RBC 4.75 Hgb 13.7 Hct 40.9 MCV 86.1 MCH 28.8 MCHC 33.5 RDW 13.1 Plt Count 338 MPV 8.2 Neut % (Auto) 50.0 Lymph % (Auto) 39.9 [place] % (Auto) 7.0 Eos % (Auto) 2.4 Baso % (Auto) 0.7 Neut # (Auto) 2.3 Lymph # (Auto) 1.9 [place] # (Auto) 0.3 Eos # (Auto) 0.1 Baso # (Auto) 0.0 ESR 45 H PT INR APTT pO2 VBG pH VBG pCO2 VBG HCO3 VBG Total CO2 VBG O2 Sat (Calc) VBG Base Excess VBG Potassium Glucose Lactate Crit Value Called To Crit Value Called By Crit Value Read Back Blood Gas Notified Time Sodium 133 Potassium 4.4 Chloride 93 L Carbon Dioxide 29 Anion Gap 15 BUN 22 H Creatinine 1.1 Est GFR ( Amer) > 60 Est GFR (Non-Af Amer) > 60 POC Glucose (mg/dL) 414 H* Random Glucose 432 H* D Hemoglobin A1c Serum Osmolality Calcium 8.3 L Total Bilirubin 0.7 AST 22 ALT 21 D Alkaline Phosphatase 139 H D Total Protein 7.4 Albumin 3.9 Globulin 3.4 Albumin/Globulin Ratio 1.1 Triglycerides Cholesterol LDL Cholesterol Direct HDL Cholesterol Venous Blood Potassium Serum Ketones Negative 08/20/17 08/20/17 08/20/17 01:03 01:05 04:42 WBC RBC Hgb Hct MCV MCH MCHC RDW Plt Count MPV Neut % (Auto) Lymph % (Auto) [place] % (Auto) Eos % (Auto) Baso % (Auto) Neut # (Auto) Lymph # (Auto) [place] # (Auto) Eos # (Auto) Baso # (Auto) ESR PT INR APTT pO2 18 L VBG pH 7.34 VBG pCO2 60 VBG HCO3 26.7 VBG Total CO2 34.2 H VBG O2 Sat (Calc) 30.5 L VBG Base Excess 4.8 H VBG Potassium 4.0 Glucose 413 H* Lactate 0.9 Crit Value Called To Chanelle power/rn Crit Value Called By Gaudencio orona/rt Crit Value Read Back Y Blood Gas Notified Time 115 Sodium 135.0 Potassium Chloride 97.0 L Carbon Dioxide Anion Gap BUN Creatinine Est GFR ( Amer) Est GFR (Non-Af Amer) POC Glucose (mg/dL) 191 H Random Glucose Hemoglobin A1c Serum Osmolality 311 H Calcium Total Bilirubin AST ALT Alkaline Phosphatase Total Protein Albumin Globulin Albumin/Globulin Ratio Triglycerides Cholesterol LDL Cholesterol Direct HDL Cholesterol Venous Blood Potassium 4.0 Serum Ketones 08/20/17 08/20/17 08/20/17 06:35 07:54 07:54 WBC RBC Hgb Hct MCV MCH MCHC RDW Plt Count MPV Neut % (Auto) Lymph % (Auto) [place] % (Auto) Eos % (Auto) Baso % (Auto) Neut # (Auto) Lymph # (Auto) [place] # (Auto) Eos # (Auto) Baso # (Auto) ESR PT 10.5 INR 0.9 APTT 34 pO2 VBG pH VBG pCO2 VBG HCO3 VBG Total CO2 VBG O2 Sat (Calc) VBG Base Excess VBG Potassium Glucose Lactate Crit Value Called To Crit Value Called By Crit Value Read Back Blood Gas Notified Time Sodium Potassium Chloride Carbon Dioxide Anion Gap BUN Creatinine Est GFR ( Amer) Est GFR (Non-Af Amer) POC Glucose (mg/dL) 226 H Random Glucose Hemoglobin A1c Serum Osmolality Calcium Total Bilirubin AST ALT Alkaline Phosphatase Total Protein Albumin Globulin Albumin/Globulin Ratio Triglycerides 97 Cholesterol 153 LDL Cholesterol Direct 70 HDL Cholesterol 55 Venous Blood Potassium Serum Ketones 08/20/17 08/20/17 08/20/17 07:54 12:22 17:04 WBC RBC Hgb Hct MCV MCH MCHC RDW Plt Count MPV Neut % (Auto) Lymph % (Auto) [place] % (Auto) Eos % (Auto) Baso % (Auto) Neut # (Auto) Lymph # (Auto) [place] # (Auto) Eos # (Auto) Baso # (Auto) ESR PT INR APTT pO2 VBG pH VBG pCO2 VBG HCO3 VBG Total CO2 VBG O2 Sat (Calc) VBG Base Excess VBG Potassium Glucose Lactate Crit Value Called To Crit Value Called By Crit Value Read Back Blood Gas Notified Time Sodium Potassium Chloride Carbon Dioxide Anion Gap BUN Creatinine Est GFR ( Amer) Est GFR (Non-Af Amer) POC Glucose (mg/dL) 403 H* 294 H Random Glucose Hemoglobin A1c 10.6 H Serum Osmolality Calcium Total Bilirubin AST ALT Alkaline Phosphatase Total Protein Albumin Globulin Albumin/Globulin Ratio Triglycerides Cholesterol LDL Cholesterol Direct HDL Cholesterol Venous Blood Potassium Serum Ketones Assessment & Plan - Assessment and Plan (Free Text) Assessment: Assessment and Plan: 57 year old male with past medical history of uncontrolled diabetes, hypertension, tobacco abuse, and alcohol abuse presents with 3 week duration of right toe infection. Patient was found to have osteomyelitis on MRI. Patient' s hemoglobin is 10.4, glucose on admission was in the 400s. Patient is also hypertensive without any home medications, being treated with Cozaar here. Pre-Op Risk Stratification - Patient has an ASCVD of 27% (10 year) and 69% (lifetime). - Per AHA/ACC guidelines, patient needs a stress test Hypertension - No home medications - Patient is on Cozaar 50 here Diabetes - Per primary Dispo: Patient getting stress test on Wednesday per AHA/ACC guidelines <Luis Miguel Stephen - Last Filed: 08/20/17 23:54> Meds - Medications Medications: Current Medications Enoxaparin Sodium (Lovenox) [address] [facility] Last Admin: 08/20/17 10:30 Dose: Not Given Cefepime HCl (Maxipime Iv 2 Gm Premix) 2 gm in 100 mls @ 200 mls/hr IVPB Q12H [facility] Stop: 08/25/17 22:01 Last Admin: 08/20/17 22:31 Dose: Not Given Vancomycin/Sodium Chloride (Vancomycin 1 Gm/Ns 200 Ml) 1 gm in 200 mls @ 166.7 mls/hr IVPB Q12H [facility] Stop: 08/25/17 22:01 Last Admin: 08/20/17 22:31 Dose: Not Given Insulin Aspart (Novolog) [address] [facility] PRN Reason: Protocol Last Admin: 08/20/17 22:11 Dose: Not Given Insulin Human Isoph/Insulin Regular (Novolin 70/30 (70/30 Units/Ml) 10 Ml) [address] [facility] Last Admin: 08/20/17 21:54 Dose: Not Given Losartan Potassium (Cozaar) [address] [facility] Pantoprazole Sodium (Protonix Ec Tab) [address] [facility] Last Admin: 08/20/17 10:30 Dose: 40 mg Results - Vital Signs Recent Vital Signs: Last Vital Signs Temp 98.2 F 08/20/17 22:18 Pulse 68 08/20/17 22:18 Resp 18 08/20/17 22:18 BP 126/78 08/20/17 22:18 Pulse Ox 99 08/20/17 22:18 - Labs Result Diagrams: 08/20/17 01:03 08/20/17 01:03 Labs: Laboratory Results - last 24 hr 08/20/17 08/20/17 08/20/17 00:33 01:03 01:03 WBC 4.7 L RBC 4.75 Hgb 13.7 Hct 40.9 MCV 86.1 MCH 28.8 MCHC 33.5 RDW 13.1 Plt Count 338 MPV 8.2 Neut % (Auto) 50.0 Lymph % (Auto) 39.9 [place] % (Auto) 7.0 Eos % (Auto) 2.4 Baso % (Auto) 0.7 Neut # (Auto) 2.3 Lymph # (Auto) 1.9 [place] # (Auto) 0.3 Eos # (Auto) 0.1 Baso # (Auto) 0.0 ESR 45 H PT INR APTT pO2 VBG pH VBG pCO2 VBG HCO3 VBG Total CO2 VBG O2 Sat (Calc) VBG Base Excess VBG Potassium Glucose Lactate Crit Value Called To Crit Value Called By Crit Value Read Back Blood Gas Notified Time Sodium 133 Potassium 4.4 Chloride 93 L Carbon Dioxide 29 Anion Gap 15 BUN 22 H Creatinine 1.1 Est GFR ( Amer) > 60 Est GFR (Non-Af Amer) > 60 POC Glucose (mg/dL) 414 H* Random Glucose 432 H* D Hemoglobin A1c Serum Osmolality Calcium 8.3 L Total Bilirubin 0.7 AST 22 ALT 21 D Alkaline Phosphatase 139 H D Total Protein 7.4 Albumin 3.9 Globulin 3.4 Albumin/Globulin Ratio 1.1 Triglycerides Cholesterol LDL Cholesterol Direct HDL Cholesterol Venous Blood Potassium Serum Ketones Negative 08/20/17 08/20/17 08/20/17 01:03 01:05 04:42 WBC RBC Hgb Hct MCV MCH MCHC RDW Plt Count MPV Neut % (Auto) Lymph % (Auto) [place] % (Auto) Eos % (Auto) Baso % (Auto) Neut # (Auto) Lymph # (Auto) [place] # (Auto) Eos # (Auto) Baso # (Auto) ESR PT INR APTT pO2 18 L VBG pH 7.34 VBG pCO2 60 VBG HCO3 26.7 VBG Total CO2 34.2 H VBG O2 Sat (Calc) 30.5 L VBG Base Excess 4.8 H VBG Potassium 4.0 Glucose 413 H* Lactate 0.9 Crit Value Called To Chanelle power/rn Crit Value Called By Gaudencio orona/rt Crit Value Read Back Y Blood Gas Notified Time 115 Sodium 135.0 Potassium Chloride 97.0 L Carbon Dioxide Anion Gap BUN Creatinine Est GFR ( Amer) Est GFR (Non-Af Amer) POC Glucose (mg/dL) 191 H Random Glucose Hemoglobin A1c Serum Osmolality 311 H Calcium Total Bilirubin AST ALT Alkaline Phosphatase Total Protein Albumin Globulin Albumin/Globulin Ratio Triglycerides Cholesterol LDL Cholesterol Direct HDL Cholesterol Venous Blood Potassium 4.0 Serum Ketones 08/20/17 08/20/17 08/20/17 06:35 07:54 07:54 WBC RBC Hgb Hct MCV MCH MCHC RDW Plt Count MPV Neut % (Auto) Lymph % (Auto) [place] % (Auto) Eos % (Auto) Baso % (Auto) Neut # (Auto) Lymph # (Auto) [place] # (Auto) Eos # (Auto) Baso # (Auto) ESR PT 10.5 INR 0.9 APTT 34 pO2 VBG pH VBG pCO2 VBG HCO3 VBG Total CO2 VBG O2 Sat (Calc) VBG Base Excess VBG Potassium Glucose Lactate Crit Value Called To Crit Value Called By Crit Value Read Back Blood Gas Notified Time Sodium Potassium Chloride Carbon Dioxide Anion Gap BUN Creatinine Est GFR ( Amer) Est GFR (Non-Af Amer) POC Glucose (mg/dL) 226 H Random Glucose Hemoglobin A1c Serum Osmolality Calcium Total Bilirubin AST ALT Alkaline Phosphatase Total Protein Albumin Globulin Albumin/Globulin Ratio Triglycerides 97 Cholesterol 153 LDL Cholesterol Direct 70 HDL Cholesterol 55 Venous Blood Potassium Serum Ketones 08/20/17 08/20/17 08/20/17 07:54 12:22 17:04 WBC RBC Hgb Hct MCV MCH MCHC RDW Plt Count MPV Neut % (Auto) Lymph % (Auto) [place] % (Auto) Eos % (Auto) Baso % (Auto) Neut # (Auto) Lymph # (Auto) [place] # (Auto) Eos # (Auto) Baso # (Auto) ESR PT INR APTT pO2 VBG pH VBG pCO2 VBG HCO3 VBG Total CO2 VBG O2 Sat (Calc) VBG Base Excess VBG Potassium Glucose Lactate Crit Value Called To Crit Value Called By Crit Value Read Back Blood Gas Notified Time Sodium Potassium Chloride Carbon Dioxide Anion Gap BUN Creatinine Est GFR ( Amer) Est GFR (Non-Af Amer) POC Glucose (mg/dL) 403 H* 294 H Random Glucose Hemoglobin A1c 10.6 H Serum Osmolality Calcium Total Bilirubin AST ALT Alkaline Phosphatase Total Protein Albumin Globulin Albumin/Globulin Ratio Triglycerides Cholesterol LDL Cholesterol Direct HDL Cholesterol Venous Blood Potassium Serum Ketones 08/20/17 21:45 WBC RBC Hgb Hct MCV MCH MCHC RDW Plt Count MPV Neut % (Auto) Lymph % (Auto) [place] % (Auto) Eos % (Auto) Baso % (Auto) Neut # (Auto) Lymph # (Auto) [place] # (Auto) Eos # (Auto) Baso # (Auto) ESR PT INR APTT pO2 VBG pH VBG pCO2 VBG HCO3 VBG Total CO2 VBG O2 Sat (Calc) VBG Base Excess VBG Potassium Glucose Lactate Crit Value Called To Crit Value Called By Crit Value Read Back Blood Gas Notified Time Sodium Potassium Chloride Carbon Dioxide Anion Gap BUN Creatinine Est GFR ( Amer) Est GFR (Non-Af Amer) POC Glucose (mg/dL) 120 H Random Glucose Hemoglobin A1c Serum Osmolality Calcium Total Bilirubin AST ALT Alkaline Phosphatase Total Protein Albumin Globulin Albumin/Globulin Ratio Triglycerides Cholesterol LDL Cholesterol Direct HDL Cholesterol Venous Blood Potassium Serum Ketones Attending/Attestation - Attestation I have personally seen and examined this patient.: Yes I have fully participated in the care of the patient.: Yes I have reviewed all pertinent clinical information: Yes Notes (Text): 08/20/17 23:54 plan for stress test on Wednesday
[2017-08-20] MEDS ORDERED: (Novolin 70/30) NPH/Regular 70/30 Units/ml 10 ml vial SC SCH (18:00)
--- NOTE | 2017-08-20 18:04 | CP.PCM.CON ---
History of Present Illness - History of Present Illness History of Present Illness: Podiatry Consult Note- Dr. Rodgers Mr. Dunaway is a 57 yo male patient who is seen at bedside today concerning infection R hallux. Pt says that he noticed a blister form to the toe 2-3 days ago that began to get worse. Denies any recent changes in shoe gear, says he wears Erasmo's or other sneakers most days. Denies any recent changes in activity. Denies pain or discomfort to the foot, however does admit to numbness both feet. Denies seeing any drainage or pus. Denies f/c/sob/cp/weakness or dizziness at this time. Says he did feel nauseous and vomited a small amt earlier today but has subsided. Pt says that he has been unable to afford his medications recently and as a result has not been compliant with taking his insulin properly. Says that Dr. Little amputated his R 2nd toe 6 years ago for an infection and has had multiple excisions of bone from both hallux in the past all due to bone infections. PMH: IDDMII, HTN, gastritis, PUD, b/l hallux + OM ALL: NKDA PSHx: right 2nd digit amputation (6 years ago), b/l excision of bone b/l hallux , appendectomy Meds: see MAR (reviewed) Soc. Hx: past smoker 1 PPD (x30 years) quit 6 years ago, admits to social ETOH, denies recent illicit drug use Review of Systems - Review of Systems Review of Systems: all systems reviewed and found neg outside HPI Past Patient History - Infectious Disease Hx of Infectious Diseases: None - Past Medical History & Family History Past Medical History?: Yes - Past Social History Smoking Status: Former Smoker - CARDIAC Hx Cardiac Disorders: No - PULMONARY Hx Respiratory Disorders: No - NEUROLOGICAL Hx Neurological Disorder: No - HEENT Hx HEENT Problems: No - RENAL Hx Chronic Kidney Disease: No - ENDOCRINE/METABOLIC Hx Endocrine Disorders: Yes Hx Diabetes Mellitus Type 2: Yes - HEMATOLOGICAL/ONCOLOGICAL Hx Blood Disorders: No - INTEGUMENTARY Hx Dermatological Problems: No - MUSCULOSKELETAL/RHEUMATOLOGICAL Hx Musculoskeletal Disorders: No Hx Falls: No - GASTROINTESTINAL Hx Gastritis: Yes - GENITOURINARY/GYNECOLOGICAL Hx Genitourinary Disorders: No - PSYCHIATRIC Hx Substance Use: No - SURGICAL HISTORY Hx Amputation: Yes Hx Appendectomy: Yes - ANESTHESIA Hx Anesthesia: Yes Hx Anesthesia Reactions: No Meds Allergies/Adverse Reactions: Allergies Allergy/AdvReac Type Severity Reaction Status Date / Time No Known Allergies Allergy Verified 08/20/17 00:29 - Medications Medications: Current Medications Enoxaparin Sodium (Lovenox) 40 mg SC DAILY [facility] Last Admin: 08/20/17 10:30 Dose: Not Given Cefepime HCl (Maxipime Iv 1 Gm Premix) 1 gm in 50 mls @ 100 mls/hr IVPB Q24H [facility] Vancomycin/Sodium Chloride (Vancomycin 1 Gm/Ns 200 Ml) 1 gm in 200 mls @ 166.7 mls/hr IVPB Q24H [facility] Stop: 08/25/17 05:01 Last Admin: 08/20/17 05:45 Dose: 166.7 mls/hr Insulin Human Isoph/Insulin Regular (Novolin 70/30 (70/30 Units/Ml) 10 Ml) 20 units SC BID [facility] Insulin Human Regular (Novolin R) 0 unit SC ACHS [facility] PRN Reason: Protocol Last Admin: 08/20/17 12:51 Dose: 12 unit Losartan Potassium (Cozaar) 50 mg PO DAILY [facility] Last Admin: 08/20/17 15:27 Dose: 50 mg Pantoprazole Sodium (Protonix Ec Tab) 40 mg PO DAILY [facility] Last Admin: 08/20/17 10:30 Dose: 40 mg Physical Exam - Constitutional Appears: Well, Non-toxic, No Acute Distress - Extremities Exam Extremities exam: Negative for: calf tenderness Additional comments: B/L LE exam: VASC- DP/PT pulses are palpable (graded 2/4 b/), skin temp runs warm to cool left and warm to warm right (with increased callor to hallux), cap refill < 3 sec to all digits, mod-severe edema noted to R hallux NEURO- gross and protective pedal sensation is diminished DERM- full thickness ulceration is present to medial R hallux IPJ measures approx 1.5x0.6x0.5 cm with mixed fibro-granular base, wound probes to deep sub- cutaneous layer just before bone, neg sinus tracking, neg malodor, neg fluctuance, neg purulence, neg surrounding erythema, neg ascending cellulitis, nails x 10 are thickned and elongated, left foot is free of any lesions ORTHO- previous 2nd digit amp R foot, no other deformities - Neurological Exam Neurological exam: Alert, CN II-XII Intact, Oriented x3 - Psychiatric Exam Psychiatric exam: Normal Affect, Normal Mood Results - Vital Signs Recent Vital Signs: Last Vital Signs Temp 97.8 F 08/20/17 16:41 Pulse 66 08/20/17 16:41 Resp 20 08/20/17 16:41 BP 172/96 H 08/20/17 16:41 Pulse Ox 98 08/20/17 16:41 - Labs Result Diagrams: 08/20/17 01:03 08/20/17 01:03 Labs: Laboratory Results - last 24 hr 08/20/17 08/20/17 08/20/17 00:33 01:03 01:03 WBC 4.7 L RBC 4.75 Hgb 13.7 Hct 40.9 MCV 86.1 MCH 28.8 MCHC 33.5 RDW 13.1 Plt Count 338 MPV 8.2 Neut % (Auto) 50.0 Lymph % (Auto) 39.9 [place] % (Auto) 7.0 Eos % (Auto) 2.4 Baso % (Auto) 0.7 Neut # (Auto) 2.3 Lymph # (Auto) 1.9 [place] # (Auto) 0.3 Eos # (Auto) 0.1 Baso # (Auto) 0.0 ESR 45 H PT INR APTT pO2 VBG pH VBG pCO2 VBG HCO3 VBG Total CO2 VBG O2 Sat (Calc) VBG Base Excess VBG Potassium Glucose Lactate Crit Value Called To Crit Value Called By Crit Value Read Back Blood Gas Notified Time Sodium 133 Potassium 4.4 Chloride 93 L Carbon Dioxide 29 Anion Gap 15 BUN 22 H Creatinine 1.1 Est GFR ( Amer) > 60 Est GFR (Non-Af Amer) > 60 POC Glucose (mg/dL) 414 H* Random Glucose 432 H* D Hemoglobin A1c Serum Osmolality Calcium 8.3 L Total Bilirubin 0.7 AST 22 ALT 21 D Alkaline Phosphatase 139 H D Total Protein 7.4 Albumin 3.9 Globulin 3.4 Albumin/Globulin Ratio 1.1 Triglycerides Cholesterol LDL Cholesterol Direct HDL Cholesterol Venous Blood Potassium Serum Ketones Negative 08/20/17 08/20/17 08/20/17 01:03 01:05 04:42 WBC RBC Hgb Hct MCV MCH MCHC RDW Plt Count MPV Neut % (Auto) Lymph % (Auto) [place] % (Auto) Eos % (Auto) Baso % (Auto) Neut # (Auto) Lymph # (Auto) [place] # (Auto) Eos # (Auto) Baso # (Auto) ESR PT INR APTT pO2 18 L VBG pH 7.34 VBG pCO2 60 VBG HCO3 26.7 VBG Total CO2 34.2 H VBG O2 Sat (Calc) 30.5 L VBG Base Excess 4.8 H VBG Potassium 4.0 Glucose 413 H* Lactate 0.9 Crit Value Called To Chanelle power/rn Crit Value Called By Gaudencio orona/rt Crit Value Read Back Y Blood Gas Notified Time 115 Sodium 135.0 Potassium Chloride 97.0 L Carbon Dioxide Anion Gap BUN Creatinine Est GFR ( Amer) Est GFR (Non-Af Amer) POC Glucose (mg/dL) 191 H Random Glucose Hemoglobin A1c Serum Osmolality 311 H Calcium Total Bilirubin AST ALT Alkaline Phosphatase Total Protein Albumin Globulin Albumin/Globulin Ratio Triglycerides Cholesterol LDL Cholesterol Direct HDL Cholesterol Venous Blood Potassium 4.0 Serum Ketones 08/20/17 08/20/17 08/20/17 06:35 07:54 07:54 WBC RBC Hgb Hct MCV MCH MCHC RDW Plt Count MPV Neut % (Auto) Lymph % (Auto) [place] % (Auto) Eos % (Auto) Baso % (Auto) Neut # (Auto) Lymph # (Auto) [place] # (Auto) Eos # (Auto) Baso # (Auto) ESR PT 10.5 INR 0.9 APTT 34 pO2 VBG pH VBG pCO2 VBG HCO3 VBG Total CO2 VBG O2 Sat (Calc) VBG Base Excess VBG Potassium Glucose Lactate Crit Value Called To Crit Value Called By Crit Value Read Back Blood Gas Notified Time Sodium Potassium Chloride Carbon Dioxide Anion Gap BUN Creatinine Est GFR ( Amer) Est GFR (Non-Af Amer) POC Glucose (mg/dL) 226 H Random Glucose Hemoglobin A1c Serum Osmolality Calcium Total Bilirubin AST ALT Alkaline Phosphatase Total Protein Albumin Globulin Albumin/Globulin Ratio Triglycerides 97 Cholesterol 153 LDL Cholesterol Direct 70 HDL Cholesterol 55 Venous Blood Potassium Serum Ketones 08/20/17 08/20/17 08/20/17 07:54 12:22 17:04 WBC RBC Hgb Hct MCV MCH MCHC RDW Plt Count MPV Neut % (Auto) Lymph % (Auto) [place] % (Auto) Eos % (Auto) Baso % (Auto) Neut # (Auto) Lymph # (Auto) [place] # (Auto) Eos # (Auto) Baso # (Auto) ESR PT INR APTT pO2 VBG pH VBG pCO2 VBG HCO3 VBG Total CO2 VBG O2 Sat (Calc) VBG Base Excess VBG Potassium Glucose Lactate Crit Value Called To Crit Value Called By Crit Value Read Back Blood Gas Notified Time Sodium Potassium Chloride Carbon Dioxide Anion Gap BUN Creatinine Est GFR ( Amer) Est GFR (Non-Af Amer) POC Glucose (mg/dL) 403 H* 294 H Random Glucose Hemoglobin A1c 10.6 H Serum Osmolality Calcium Total Bilirubin AST ALT Alkaline Phosphatase Total Protein Albumin Globulin Albumin/Globulin Ratio Triglycerides Cholesterol LDL Cholesterol Direct HDL Cholesterol Venous Blood Potassium Serum Ketones Assessment & Plan - Assessment and Plan (Free Text) Assessment: 57 yo male patient with full-thickness ulceration and +OM R hallux 2/2 diabetic neuropathy and uncontrolled DMII Plan: Pt S&E at the bedside Plan discussed with attending Dr. Rodgers Chart, labs and vitals reviewed: afebrile, no leukocytosis, ESR elevated (45), CRP pending A1C elevated 10.6 Wound cx: pending R foot x-ray: inconclusive for OM R LE MRI: + OM distal phalanx and head of proximal phalanx of R hallux IV abx as per ID Wound exisionally debrided with sterile #15 blade down to level of deep subcutaneous tissue to healthy bleeding level. Pt tolerated procedure well without incident or complaint. All 10 toenails aseptically paired with nail nipper to hygienic length, pt tolerated procedure w/o incident. Discussed w/ pt conservative vs. surgical options and addressed all questions and concerns. Plan for OR Wed. 08/23 in morning for partial amp. R hallux w/ Dr. Rodgers Will require medical and cardiac clx prior to surgery Hold lovenox Wednesday NPO for Wednesday breakfast Wound dressed betadine, DSD WBAT w/ surgical shoe right foot
--- NOTE | 2017-08-20 21:48 | CP.PCM.CON ---
History of Present Illness - History of Present Illness History of Present Illness: dictated Past Patient History - Infectious Disease Hx of Infectious Diseases: None - Past Medical History & Family History Past Medical History?: Yes - Past Social History Smoking Status: Former Smoker - CARDIAC Hx Cardiac Disorders: No - PULMONARY Hx Respiratory Disorders: No - NEUROLOGICAL Hx Neurological Disorder: No - HEENT Hx HEENT Problems: No - RENAL Hx Chronic Kidney Disease: No - ENDOCRINE/METABOLIC Hx Endocrine Disorders: Yes Hx Diabetes Mellitus Type 2: Yes - HEMATOLOGICAL/ONCOLOGICAL Hx Blood Disorders: No - INTEGUMENTARY Hx Dermatological Problems: No - MUSCULOSKELETAL/RHEUMATOLOGICAL Hx Musculoskeletal Disorders: No Hx Falls: No - GASTROINTESTINAL Hx Gastritis: Yes - GENITOURINARY/GYNECOLOGICAL Hx Genitourinary Disorders: No - PSYCHIATRIC Hx Substance Use: No - SURGICAL HISTORY Hx Amputation: Yes Hx Appendectomy: Yes - ANESTHESIA Hx Anesthesia: Yes Hx Anesthesia Reactions: No Meds Allergies/Adverse Reactions: Allergies Allergy/AdvReac Type Severity Reaction Status Date / Time No Known Allergies Allergy Verified 08/20/17 00:29 - Medications Medications: Current Medications Enoxaparin Sodium (Lovenox) 40 mg SC DAILY [facility] Last Admin: 08/20/17 10:30 Dose: Not Given Cefepime HCl (Maxipime Iv 1 Gm Premix) 1 gm in 50 mls @ 100 mls/hr IVPB Q24H [facility] Vancomycin/Sodium Chloride (Vancomycin 1 Gm/Ns 200 Ml) 1 gm in 200 mls @ 166.7 mls/hr IVPB Q24H [facility] Stop: 08/25/17 05:01 Last Admin: 08/20/17 05:45 Dose: 166.7 mls/hr Insulin Human Isoph/Insulin Regular (Novolin 70/30 (70/30 Units/Ml) 10 Ml) 20 units SC Q12 [facility] Insulin Human Regular (Novolin R) 0 unit SC ACHS [facility] PRN Reason: Protocol Last Admin: 08/20/17 17:30 Dose: 6 unit Losartan Potassium (Cozaar) 50 mg PO BID [facility] Pantoprazole Sodium (Protonix Ec Tab) 40 mg PO DAILY [facility] Last Admin: 08/20/17 10:30 Dose: 40 mg Results - Vital Signs Recent Vital Signs: Last Vital Signs Temp 97.8 F 08/20/17 16:41 Pulse 66 08/20/17 16:41 Resp 20 08/20/17 16:41 BP 172/96 H 08/20/17 16:41 Pulse Ox 98 08/20/17 16:41 - Labs Result Diagrams: 08/20/17 01:03 08/20/17 01:03 Labs: Laboratory Results - last 24 hr 08/20/17 08/20/17 08/20/17 00:33 01:03 01:03 WBC 4.7 L RBC 4.75 Hgb 13.7 Hct 40.9 MCV 86.1 MCH 28.8 MCHC 33.5 RDW 13.1 Plt Count 338 MPV 8.2 Neut % (Auto) 50.0 Lymph % (Auto) 39.9 [place] % (Auto) 7.0 Eos % (Auto) 2.4 Baso % (Auto) 0.7 Neut # (Auto) 2.3 Lymph # (Auto) 1.9 [place] # (Auto) 0.3 Eos # (Auto) 0.1 Baso # (Auto) 0.0 ESR 45 H PT INR APTT pO2 VBG pH VBG pCO2 VBG HCO3 VBG Total CO2 VBG O2 Sat (Calc) VBG Base Excess VBG Potassium Glucose Lactate Crit Value Called To Crit Value Called By Crit Value Read Back Blood Gas Notified Time Sodium 133 Potassium 4.4 Chloride 93 L Carbon Dioxide 29 Anion Gap 15 BUN 22 H Creatinine 1.1 Est GFR ( Amer) > 60 Est GFR (Non-Af Amer) > 60 POC Glucose (mg/dL) 414 H* Random Glucose 432 H* D Hemoglobin A1c Serum Osmolality Calcium 8.3 L Total Bilirubin 0.7 AST 22 ALT 21 D Alkaline Phosphatase 139 H D Total Protein 7.4 Albumin 3.9 Globulin 3.4 Albumin/Globulin Ratio 1.1 Triglycerides Cholesterol LDL Cholesterol Direct HDL Cholesterol Venous Blood Potassium Serum Ketones Negative 08/20/17 08/20/17 08/20/17 01:03 01:05 04:42 WBC RBC Hgb Hct MCV MCH MCHC RDW Plt Count MPV Neut % (Auto) Lymph % (Auto) [place] % (Auto) Eos % (Auto) Baso % (Auto) Neut # (Auto) Lymph # (Auto) [place] # (Auto) Eos # (Auto) Baso # (Auto) ESR PT INR APTT pO2 18 L VBG pH 7.34 VBG pCO2 60 VBG HCO3 26.7 VBG Total CO2 34.2 H VBG O2 Sat (Calc) 30.5 L VBG Base Excess 4.8 H VBG Potassium 4.0 Glucose 413 H* Lactate 0.9 Crit Value Called To Chanelle power/rn Crit Value Called By Gaudencio orona/rt Crit Value Read Back Y Blood Gas Notified Time 115 Sodium 135.0 Potassium Chloride 97.0 L Carbon Dioxide Anion Gap BUN Creatinine Est GFR ( Amer) Est GFR (Non-Af Amer) POC Glucose (mg/dL) 191 H Random Glucose Hemoglobin A1c Serum Osmolality 311 H Calcium Total Bilirubin AST ALT Alkaline Phosphatase Total Protein Albumin Globulin Albumin/Globulin Ratio Triglycerides Cholesterol LDL Cholesterol Direct HDL Cholesterol Venous Blood Potassium 4.0 Serum Ketones 08/20/17 08/20/17 08/20/17 06:35 07:54 07:54 WBC RBC Hgb Hct MCV MCH MCHC RDW Plt Count MPV Neut % (Auto) Lymph % (Auto) [place] % (Auto) Eos % (Auto) Baso % (Auto) Neut # (Auto) Lymph # (Auto) [place] # (Auto) Eos # (Auto) Baso # (Auto) ESR PT 10.5 INR 0.9 APTT 34 pO2 VBG pH VBG pCO2 VBG HCO3 VBG Total CO2 VBG O2 Sat (Calc) VBG Base Excess VBG Potassium Glucose Lactate Crit Value Called To Crit Value Called By Crit Value Read Back Blood Gas Notified Time Sodium Potassium Chloride Carbon Dioxide Anion Gap BUN Creatinine Est GFR ( Amer) Est GFR (Non-Af Amer) POC Glucose (mg/dL) 226 H Random Glucose Hemoglobin A1c Serum Osmolality Calcium Total Bilirubin AST ALT Alkaline Phosphatase Total Protein Albumin Globulin Albumin/Globulin Ratio Triglycerides 97 Cholesterol 153 LDL Cholesterol Direct 70 HDL Cholesterol 55 Venous Blood Potassium Serum Ketones 08/20/17 08/20/17 08/20/17 07:54 12:22 17:04 WBC RBC Hgb Hct MCV MCH MCHC RDW Plt Count MPV Neut % (Auto) Lymph % (Auto) [place] % (Auto) Eos % (Auto) Baso % (Auto) Neut # (Auto) Lymph # (Auto) [place] # (Auto) Eos # (Auto) Baso # (Auto) ESR PT INR APTT pO2 VBG pH VBG pCO2 VBG HCO3 VBG Total CO2 VBG O2 Sat (Calc) VBG Base Excess VBG Potassium Glucose Lactate Crit Value Called To Crit Value Called By Crit Value Read Back Blood Gas Notified Time Sodium Potassium Chloride Carbon Dioxide Anion Gap BUN Creatinine Est GFR ( Amer) Est GFR (Non-Af Amer) POC Glucose (mg/dL) 403 H* 294 H Random Glucose Hemoglobin A1c 10.6 H Serum Osmolality Calcium Total Bilirubin AST ALT Alkaline Phosphatase Total Protein Albumin Globulin Albumin/Globulin Ratio Triglycerides Cholesterol LDL Cholesterol Direct HDL Cholesterol Venous Blood Potassium Serum Ketones
[2017-08-20] MEDS: (Novolin 70/30) NPH/Regular 70/30 Units/ml 10 ml vial SC SCH (21:54)
[2017-08-20] MEDS: (Novolog) Insulin Aspart, Recombinant 100 u/ml 10 ml vial SC SCH (22:11)
[2017-08-20] MEDS: Vancomycin 1 gm/NS 200 ml 1 GM/200 ML BAG IVPB SCH (22:31)
[2017-08-20] MEDS: Cefepime IV 2 gm in Dextrose 2 GM/100 ML BAG IVPB SCH (22:31)
--- NOTE | 2017-08-21 06:54 | CON ---
DATE: INFECTIOUS DISEASE CONSULT REQUESTING PHYSICIAN: Dr. Munroe. HISTORY OF PRESENT ILLNESS: This patient is a 57-year-old male who presented with a right foot ulcer, right foot great toe swelling, and right foot with wound and drainage. He is 57-year-old with history of diabetes, gastritis, peptic ulcer disease, he has left leg osteomyelitis before, now he has on the right side. He presented with wound and drainage, and he is now found to have osteomyelitis. He was initially evaluated in the ED on 07/31/2017 and was instructed to keep the wound clean, Neosporin, and he was discharged, now comes back, and he is diabetic. His hemoglobin A1c is high. He denies any fever, chills. No nausea or vomiting. He states he does not have Part B of Medicare and he is not even able to get his medications through the plan, and the patient was given an appointment for the clinic. He did not make it to the appointment and now comes here. PAST MEDICAL HISTORY: Significant as above. PAST SURGICAL HISTORY: Right second toe amputation, appendicectomy, and he had thumb surgery on the left foot and bilateral hallux. He has had osteomyelitis which looks like infected bone removal on the left foot and right also. He has a dressing at this time which was just done. FAMILY HISTORY: Significant for diabetes. MEDICATIONS: He uses Humalog 70/30 twice a day and omeprazole. SOCIAL HISTORY: He lives with his fiancee. He is unemployed, 30 years of tobacco abuse, 2 beers, 2 shots of whisky daily, 15 years use of marijuana and cocaine intranasal, so that is what he is doing. PHYSICAL EXAMINATION: GENERAL: He is alert and oriented. VITAL SIGNS: Temperature is 97.8, pulse 66, blood pressure 172/96, respirations are 20. HEENT: Head is atraumatic and normocephalic. NECK: Supple. HEART: S1 and S2 regular. No murmurs appreciated. LUNGS: Clear. ABDOMEN: Soft and nontender. No guarding. No rigidity present. EXTREMITIES: No edema, clubbing, or cyanosis. On the left foot, he has this great toe which has healed osteomyelitis, and on the right great toe, I could not see because of the dressing. Second toe is missing and the lady he says also cut his nails. LABORATORY DATA: Labs show white count is 4.7, hemoglobin 13.7, hematocrit 40.9, platelet count is 338. His sugars have been running high, and they are putting back on his medications and the last sugar is 120. His BUN is 22, creatinine is 1.1, and he had high serum osmolality. When he came in, his alkaline phosphatase was 139. He had lower extremity MRI which shows prominent tissue ulceration and defect noted at the level of the first distal phalanx, cortical irregularity with signal changes noted within the adjacent marrow of the distal phalanx with decreased T1 signal and increased signal concerning for an acute osteomyelitis. Mild signal changes at the articular surface of the head of the first demonstrates some fatty decreased T1 signal, this may be a sequelae; however, developing early osteomyelitis cannot be excluded. Resection of the second digital metatarsal head is there, so he does have osteomyelitis clinically and by the MRI. Labs show white count is stable. Microbiology, there was a wound culture, which is pending, and he is on antibiotics at this time. He was on Cefepime which has been discontinued and vancomycin which has been discontinue, I do now know why, I will call them and find out. He is on Maxipime given 1 gm q.24 and vancomycin 1 gm q.24. His creatinine is 1.1. So at this time, we will follow. We will increase the medications as they are given subtherapeutic and we will follow. Chavez Downing MD
[2017-08-21 07:13] LABS: BASO % 0.4 % (0.0-2.0); EOS # 0.2 K/uL (0.0-0.7); EOS % 3.4 % (0.0-4.0); HEMOGLOBIN 14.2 g/dL (12.0-18.0); INR 0.9; LYMPH # 1.6 K/uL (1.0-4.3); LYMPH % 33.5 % (20.0-40.0); MEAN CELL VOLUME 84.6 fL (80.0-94.0); MEAN CORPUSCULAR HEMOGLOBIN 29.6 pg (27.0-31.0); MEAN PLATELET VOLUME 8.4 fL (7.2-11.7); MONO # 0.4 K/uL (0.0-0.8); MONO % 7.4 % (0.0-10.0); NEUT # 2.7 K/uL (1.8-7.0); NEUT % 55.3 % (50.0-75.0); NRBC % 0.1 % (0.0-2.0); PROTHROMBIN TIME 10.4 SECONDS (9.7-12.2); RBC 4.81 Mil/uL (4.40-5.90); WHITE BLOOD COUNT 4.9 K/uL (4.8-10.8)
[2017-08-21 08:33] LABS: ALBUMIN 3.4 g/dL (3.5-5.0); ALT/SGPT 15 U/L (21-72); AST/SGOT 19 U/L (17-59); BLOOD UREA NITROGEN 15 mg/dL (9-20); CALCIUM 8.6 mg/dl (8.6-10.4); GFR AFRICAN-AMERICAN > 60; GFR NON-AFRICAN AMERICAN > 60; MAGNESIUM 1.9 mg/dL (1.6-2.3)
[2017-08-21] MEDS: Pantoprazole 40 mg EC Tab PO SCH (09:01)
[2017-08-21] MEDS: (Novolin 70/30) NPH/Regular 70/30 Units/ml 10 ml vial SC SCH ×2 (09:03→21:56)
[2017-08-21] MEDS: (Novolog) Insulin Aspart, Recombinant 100 u/ml 10 ml vial SC SCH ×4 (09:03→21:54)
[2017-08-21] MEDS: Enoxaparin 40 mg Syringe SC SCH (09:05)
[2017-08-21] MEDS ORDERED: Cefepime IV 1 gm in Dextrose 1 GM/50 ML BAG IVPB SCH (10:00)
--- NOTE | 2017-08-21 10:41 | CP.PCM.PN ---
Subjective - Date & Time of Evaluation Date of Evaluation: 08/21/17 Time of Evaluation: 10:41 - Subjective Subjective: Cardiology progress note for Dr. Stephen Patient seen and examined at bedside. No complaints at this time, is in good spirits. Per podiatry, patient to have surgery on Wednesday AM. Objective - Vital Signs/Intake and Output Vital Signs (last 24 hours): Temp Pulse Resp BP Pulse Ox 97.8 F 63 20 148/79 96 08/21/17 07:30 08/21/17 07:30 08/21/17 07:30 08/21/17 07:30 08/21/17 07:30 - Medications Medications: Current Medications Enoxaparin Sodium (Lovenox) 40 mg SC DAILY [facility] Last Admin: 08/21/17 09:05 Dose: Not Given Cefepime HCl (Maxipime Iv 2 Gm Premix) 2 gm in 100 mls @ 200 mls/hr IVPB Q12H [facility] Stop: 08/25/17 22:01 Last Admin: 08/20/17 22:31 Dose: Not Given Vancomycin/Sodium Chloride (Vancomycin 1 Gm/Ns 200 Ml) 1 gm in 200 mls @ 166.7 mls/hr IVPB Q12H [facility] Stop: 08/25/17 22:01 Last Admin: 08/20/17 22:31 Dose: Not Given Insulin Aspart (Novolog) 0 unit SC ACHS [facility] PRN Reason: Protocol Last Admin: 08/21/17 09:03 Dose: 4 unit Insulin Human Isoph/Insulin Regular (Novolin 70/30 (70/30 Units/Ml) 10 Ml) 20 units SC Q12 [facility] Last Admin: 08/21/17 09:03 Dose: 20 units Losartan Potassium (Cozaar) 50 mg PO BID [facility] Last Admin: 08/21/17 09:02 Dose: 50 mg Pantoprazole Sodium (Protonix Ec Tab) 40 mg PO DAILY [facility] Last Admin: 08/21/17 09:01 Dose: 40 mg - Labs Labs: 08/21/17 06:39 08/21/17 06:39 PT 10.4 SECONDS (9.7-12.2) 08/21/17 06:39 INR 0.9 08/21/17 06:39 APTT 34 SECONDS (21-34) 08/20/17 07:54 - Additional Findings Additional findings: Physical Exam: Vital Signs as below Const'l: Patient is visibly dry; awake alert & oriented x 4, no acute distress Head/Neck: neck supple, no jvd, trachea midline, carotid midline, no cervical /head mass Eyes: pupils equally reactive to light and accommodation, nonicteric sclera, extraocular intact ENT: auditory acuity grossly intact, throat not congested, no nasal deformity Cardio: regular rate, regular rhythm, no murmurs rubs gallops, no carotid bruit, normal s1, s2 Pulm: no accessory muscle use, equal normal breath sounds bilaterally, clear to ausculation bilaterally Abd: soft non tender non-distended, normal bowel sounds x 4 quadrants, no palpable masses Derm: no rashes, no ulcers, no lesions Extr: +Patient visibly dry; +Severe erythema, discharge, infection on R hallux and R second toe; no edema, no cyanosis, no calf tenderness, no lesions, no varicosities Neuro: cranial nerves II-XII grossly intact, upper extremity and lower extremity 5/5 muscle strength bilaterally, no loss of sensation in upper extremities, lower extremities bilaterally and core Assessment and Plan - Assessment and Plan (Free Text) Assessment: Assessment and Plan: 57 year old male with past medical history of uncontrolled diabetes, hypertension, tobacco abuse, and alcohol abuse presents with 3 week duration of right toe infection. Patient was found to have osteomyelitis on MRI. Patient' s hemoglobin is 10.4, glucose on admission was in the 400s. Patient is also hypertensive without any home medications, being treated with Cozaar here. Pre-Op Risk Stratification - Patient has an ASCVD of 27% (10 year) and 69% (lifetime). - Per AHA/ACC guidelines, patient needs a stress test Hypertension - No home medications - Patient is on Cozaar 50 here Diabetes - Per primary Dispo: Patient getting stress test on Wednesday per AHA/ACC guidelines
[2017-08-21] MEDS: Vancomycin 1 gm/NS 200 ml 1 GM/200 ML BAG IVPB SCH ×2 (13:09→21:59)
[2017-08-21] MEDS: Cefepime IV 2 gm in Dextrose 2 GM/100 ML BAG IVPB SCH ×2 (13:09→21:57)
--- NOTE | 2017-08-21 14:04 | CP.PCM.PN ---
Subjective - Date & Time of Evaluation Date of Evaluation: 08/21/17 Time of Evaluation: 14:00 - Subjective Subjective: Medical Attending Note: Patient seen and examined. Patient denies fever, denies chest pain, denies palpitations, denies abdominal pain, denies nausea, denies constipation, denies vomitting, denies diarrhea, and right foot wrapped in dressing this morning by podiatry. Patient has underwent echocardiogram and arterial doppler. Discussed with cardiology, for stress test in AM. Discussed with podiatry, will tentative plan for Wednesday for the afternoon. Objective - Vital Signs/Intake and Output Vital Signs (last 24 hours): Temp Pulse Resp BP Pulse Ox 97.8 F 63 20 148/79 96 08/21/17 07:30 08/21/17 07:30 08/21/17 07:30 08/21/17 07:30 08/21/17 07:30 - Medications Medications: Current Medications Enoxaparin Sodium (Lovenox) 40 mg SC DAILY [facility] Last Admin: 08/21/17 09:05 Dose: Not Given Cefepime HCl (Maxipime Iv 2 Gm Premix) 2 gm in 100 mls @ 200 mls/hr IVPB Q12H [facility] Stop: 08/25/17 22:01 Last Admin: 08/21/17 13:09 Dose: 200 mls/hr Vancomycin/Sodium Chloride (Vancomycin 1 Gm/Ns 200 Ml) 1 gm in 200 mls @ 166.7 mls/hr IVPB Q12H [facility] Stop: 08/25/17 22:01 Last Admin: 08/21/17 13:09 Dose: 166.7 mls/hr Insulin Aspart (Novolog) 0 unit SC ACHS [facility] PRN Reason: Protocol Last Admin: 08/21/17 13:08 Dose: 4 unit Insulin Human Isoph/Insulin Regular (Novolin 70/30 (70/30 Units/Ml) 10 Ml) 20 units SC Q12 [facility] Last Admin: 08/21/17 09:03 Dose: 20 units Losartan Potassium (Cozaar) 50 mg PO BID [facility] Last Admin: 08/21/17 09:02 Dose: 50 mg Pantoprazole Sodium (Protonix Ec Tab) 40 mg PO DAILY [facility] Last Admin: 08/21/17 09:01 Dose: 40 mg - Labs Labs: 08/21/17 06:39 08/21/17 06:39 PT 10.4 SECONDS (9.7-12.2) 08/21/17 06:39 INR 0.9 08/21/17 06:39 APTT 34 SECONDS (21-34) 08/20/17 07:54 - Constitutional Appears: Non-toxic, No Acute Distress - Head Exam Head Exam: NORMAL INSPECTION - Eye Exam Eye Exam: EOMI - ENT Exam ENT Exam: Mucous Membranes Moist - Respiratory Exam Respiratory Exam: Clear to Ausculation Bilateral, NORMAL BREATHING PATTERN. absent: Rales, Rhonchi, Wheezes - Cardiovascular Exam Cardiovascular Exam: REGULAR RHYTHM, +S1, +S2 - GI/Abdominal Exam GI & Abdominal Exam: Soft, Normal Bowel Sounds. absent: Distended, Firm, Guarding, Rigid, Tenderness, Rebound - Extremities Exam Extremities Exam: absent: Joint Swelling, Pedal Edema Additional comments: Pedal pulses intact. Right hallux ulcerous lesion. Wrapped in dressed Amputation of the 2nd toe of the right foot. in CAM boot - Back Exam Back Exam: absent: CVA tenderness (L), CVA tenderness (R), paraspinal tenderness - Neurological Exam Neurological Exam: Alert, Awake, Oriented x3 - Skin Skin Exam: Dry, Normal Color, Warm Assessment and Plan - Assessment and Plan (Free Text) Assessment: Patient seen, examined, and case discussed with day-time resident. Patient with history of diabetes, on insulin, with history of 2nd digit (right) amputation and b/l big toe debridement. Podiatry, infectious disease, and cardiology consulted on the case Patient completed echocardiogram and arterial doppler today. Assessment/Plan (1) Acute Osteomyelitis Diabetic ulcer of right foot Assessment and Plan: * Manager Commission consult, Dr. Edu Rodgers-->help appreciated * Infectious disease, Dr. Downing-->help appreciated * Cardiology, Dr. Stephen-->help appreciated * Stress test for 08/23/17 in AM * Podiatry procedure for Wednesday in the afternoon pending cardiac risk assessment * Chest xray (08/20/17): no active disease * Foot Xray (08/20/17): no definite radiographic evidence of acute osteomyelitis * MRI (08/20/17): prominent soft tissue ulceration and defect noted at the level of the 1st distal phalanx. Cortical irregularity with signal changes noted within the adjacent marrow of the 1st distal phalanx with decreased T1 signal and increased STIR signal concerning for acute osteomyelitis. Mild signal changed noted at the articular surface at he head of the 1st proximal phalax demonstrating some patchy decreased T1 signal with increased STIR signal. Osteochondral change however developing early acute osteomyelitis at this level cannot entirely be excluded. Clinical correlation. Mild hallux valgus deformity. Resection of the 2nd digit to the metatarsal head. * Cefepime 2gram IVPB Q12H (active since 08/20/17) * Vancomycin 1 gram IVPB Q12H (active since 08/20/17) * Florastor 250mg PO BID Status: Acute (2) Uncontrolled Diabetes mellitus Assessment and Plan: * Hgba1c: 10.6 * Start Novolin 70/30 20 units [id number] * Start Novolog insulin sliding scale subq (Medium dose) * Monitor how much of insulin sliding scale is used over 24hours and adjust AM/ PM insulin * Will adjust evening insulin for tonight * Will hold Aspirin in light of possible podiatric procedure * Start Cozaar 50mg PO BID (hold SBP<100) * Accuchecks QAC and HS * Diabetic diet * Diabetic education referral Status: Acute (3) Newly Diagnosed Hypertension Assessment and Plan: * Cardiology consult, Dr. Stephen, help appreciated. Consulted for cardiac clearance and baseline cardiac assessment * Start Losartan 50 mg PO BID (hold SBP<100) * f/u echo-->pending official report * f/u EKG * hold aspirin in light of pending podiatric procedure * Stress test for August 23 for cardiac risk assessment (4) Prophylactic measure Assessment and Plan: * GI: Protonix 40mg PO daily * DVT ppx:: SCDs * DVT ppx: Lovenox 40mg subqdaily Status: Acute Disposition: Optimize sugar control. Patient is pending stress test for cardiology risk assessment prior to podiatric procedure for August. Patient for possible podiatric procedure OR on August 23 in PM pending cardiac risk assessment. Will hold anticoagulation, last dose Wednesday for OR on Wednesday. Surgery and anesthesia to discuss risks and benefits of procedure prior to OR respectively, Pending official reports of echocardiogram and arterial doppler.
--- NOTE | 2017-08-21 15:08 | CP.PCM.PN ---
Subjective - Date & Time of Evaluation Date of Evaluation: 08/21/17 Time of Evaluation: 10:00 - Subjective Subjective: Podiatry Progress Note- Dr. Rodgers 57 y.o male seen at bedside for infected right hallux and OM. Pt is seen laying comfortably in bed, in NAD, and AA0x3. Patient denies acute overnight events. Patient reports no pain. He reports he lacks sensation to this foot. Patient denies n/v/sob/cp/chills or f today. Dressing is seen c/d/i without strikethrough. Objective - Vital Signs/Intake and Output Vital Signs (last 24 hours): Temp Pulse Resp BP Pulse Ox 97.8 F 63 20 148/79 96 08/21/17 07:30 08/21/17 07:30 08/21/17 07:30 08/21/17 07:30 08/21/17 07:30 - Medications Medications: Current Medications Enoxaparin Sodium (Lovenox) 40 mg SC DAILY [facility] Last Admin: 08/21/17 09:05 Dose: Not Given Cefepime HCl (Maxipime Iv 2 Gm Premix) 2 gm in 100 mls @ 200 mls/hr IVPB Q12H [facility] Stop: 08/25/17 22:01 Last Admin: 08/21/17 13:09 Dose: 200 mls/hr Vancomycin/Sodium Chloride (Vancomycin 1 Gm/Ns 200 Ml) 1 gm in 200 mls @ 166.7 mls/hr IVPB Q12H [facility] Stop: 08/25/17 22:01 Last Admin: 08/21/17 13:09 Dose: 166.7 mls/hr Insulin Aspart (Novolog) 0 unit SC ACHS [facility] PRN Reason: Protocol Last Admin: 08/21/17 13:08 Dose: 4 unit Insulin Human Isoph/Insulin Regular (Novolin 70/30 (70/30 Units/Ml) 10 Ml) 20 units SC Q12 [facility] Last Admin: 08/21/17 09:03 Dose: 20 units Losartan Potassium (Cozaar) 50 mg PO BID [facility] Last Admin: 08/21/17 09:02 Dose: 50 mg Pantoprazole Sodium (Protonix Ec Tab) 40 mg PO DAILY [facility] Last Admin: 08/21/17 09:01 Dose: 40 mg - Labs Labs: 08/21/17 06:39 08/21/17 06:39 PT 10.4 SECONDS (9.7-12.2) 08/21/17 06:39 INR 0.9 08/21/17 06:39 APTT 34 SECONDS (21-34) 08/20/17 07:54 - Constitutional Appears: Well, Non-toxic, No Acute Distress - Extremities Exam Additional comments: B/L LE exam: VASC- DP/PT pulses are palpable (graded 2/4 b/), skin temp runs warm to cool left and warm to warm right (with increased callor to hallux), cap refill < 3 sec to all digits, mod-severe edema noted to R hallux NEURO- gross and protective pedal sensation is diminished DERM- full thickness ulceration is present to medial R hallux IPJ measures approx 1.5x0.6x0.5 cm with mixed fibro-granular base, wound probes to deep sub- cutaneous layer just before bone, neg sinus tracking, neg malodor, neg fluctuance, neg purulence, neg surrounding erythema, neg ascending cellulitis, nails x 10 are thickned and elongated, left foot is free of any lesions ORTHO- previous 2nd digit amp R foot that has completely healed, no other deformities - Neurological Exam Neurological Exam: Alert, Awake, Oriented x3 - Psychiatric Exam Psychiatric exam: Normal Affect, Normal Mood Assessment and Plan - Assessment and Plan (Free Text) Assessment: 57 yo male patient with full-thickness ulceration and +OM R hallux 2/2 diabetic neuropathy and uncontrolled DMII Plan: Pt S&E at the bedside Plan discussed with attending Dr. Rodgers Chart, labs and vitals reviewed: afebrile, no leukocytosis (WBC=4.9) , ESR elevated (45), CRP elevated (10.68) Elevated ESR 45 (08/20/17) . Elevated ESR 21 (08/21/17) A1C elevated 10.6 Wound cx: gram positive cocci preliminary R foot x-ray: inconclusive for OM R LE MRI: + OM distal phalanx and head of proximal phalanx of R hallux IV abx as per ID Discussed w/ pt conservative vs. surgical options and addressed all questions and concerns. Plan for OR Wed. 08/23 in morning for partial amp. R hallux w/ Dr. Rodgers Will require medical and cardiac clx prior to surgery Hold lovenox Wednesday NPO for Wednesday breakfast Wound dressed betadine, DSD WBAT w/ surgical shoe right foot
[2017-08-22] MEDS: (Novolog) Insulin Aspart, Recombinant 100 u/ml 10 ml vial SC SCH ×4 (07:08→21:50)
[2017-08-22] MEDS ORDERED: DiphenhydrAMINE 50 mg/ml Inj IVP STA (07:59)
[2017-08-22 09:01] LABS: BASO % 0.6 % (0.0-2.0); EOS # 0.2 K/uL (0.0-0.7); EOS % 4.5 % (0.0-4.0); HEMOGLOBIN 14.6 g/dL (12.0-18.0); LYMPH # 1.8 K/uL (1.0-4.3); LYMPH % 35.2 % (20.0-40.0); MEAN CELL VOLUME 84.9 fL (80.0-94.0); MEAN CORPUSCULAR HEMOGLOBIN 29.6 pg (27.0-31.0); MEAN CORPUSCULAR HGB CONC 34.9 g/dL (33.0-37.0); MEAN PLATELET VOLUME 8.2 fL (7.2-11.7); MONO # 0.5 K/uL (0.0-0.8); NEUT # 2.6 K/uL (1.8-7.0); NEUT % 50.7 % (50.0-75.0); NRBC % 0.1 % (0.0-2.0); RBC 4.94 Mil/uL (4.40-5.90); RED CELL DISTRIBUTION WIDTH 13.5 % (11.5-14.5); WHITE BLOOD COUNT 5.1 K/uL (4.8-10.8)
[2017-08-22 09:17] LABS: ALBUMIN 3.4 g/dL (3.5-5.0); ALT/SGPT 22 U/L (21-72); AST/SGOT 19 U/L (17-59); BLOOD UREA NITROGEN 18 mg/dL (9-20); CALCIUM 8.4 mg/dl (8.6-10.4); GFR AFRICAN-AMERICAN > 60; GFR NON-AFRICAN AMERICAN > 60; MAGNESIUM 1.8 mg/dL (1.6-2.3)
[2017-08-22] MEDS: Pantoprazole 40 mg EC Tab PO SCH (10:29)
[2017-08-22] MEDS: (Novolin 70/30) NPH/Regular 70/30 Units/ml 10 ml vial SC SCH ×2 (10:29→21:50)
[2017-08-22] MEDS: Saccharomyces Boulardi 250 mg Cap PO SCH ×2 (10:29→18:13)
[2017-08-22] MEDS: Enoxaparin 40 mg Syringe SC SCH (10:29)
[2017-08-22] MEDS: Cefepime IV 2 gm in Dextrose 2 GM/100 ML BAG IVPB SCH ×2 (10:50→21:50)
[2017-08-22] MEDS: Clotrimazole 1% Cream 15 GM TUBE TOP SCH ×2 (10:55→18:13)
--- NOTE | 2017-08-22 13:06 | CP.PCM.PN ---
<Loraine Murillo - Last Filed: 08/22/17 13:00> Subjective - Date & Time of Evaluation Date of Evaluation: 08/22/17 Time of Evaluation: 09:00 - Subjective Subjective: Patient was seen and examined at bedside this morning. He admitted to a rash on the tip of his penis which started yesterday. He reports that his foreskin is cracking and he has white dots on the tip of his penis. Denies pain or itching but states it in uncomfortable. He thinks it is an allergic reaction from the antibiotics but he denies rash in other places of the body, SOB, swelling of the lips/face/tongue. Patient states he has had this same thing occur while on antibiotic before. Denies penile discharge. Patient denies fever, denies chest pain, denies palpitations, denies abdominal pain, denies nausea, denies constipation, denies vomiting, denies diarrhea, and right foot wrapped in dressing this morning by podiatry. NPO for stress test and possible amputation tomorrow. Objective - Vital Signs/Intake and Output Vital Signs (last 24 hours): Temp Pulse Resp BP Pulse Ox 97.7 F 76 20 142/88 96 08/22/17 07:40 08/22/17 10:29 08/22/17 07:40 08/22/17 10:29 08/22/17 07:40 Intake and Output: 08/22/17 08/22/17 06:59 18:59 Intake Total 200 Balance 200 - Medications Medications: Current Medications Clotrimazole (Lotrimin 1%) 1 gm TOP BID [facility] Stop: 08/29/17 10:31 Last Admin: 08/22/17 10:55 Dose: 1 applic Enoxaparin Sodium (Lovenox) 40 mg SC DAILY [facility] Last Admin: 08/22/17 10:29 Dose: Not Given Cefepime HCl (Maxipime Iv 2 Gm Premix) 2 gm in 100 mls @ 200 mls/hr IVPB Q12H [facility] Stop: 08/25/17 22:01 Last Admin: 08/22/17 10:50 Dose: 200 mls/hr Vancomycin HCl 2 gm/ Sodium (Chloride) 250 mls @ 166.7 mls/hr IVPB Q12 [facility] Insulin Aspart (Novolog) 0 unit SC ACHS [facility] PRN Reason: Protocol Last Admin: 08/22/17 07:08 Dose: Not Given Insulin Human Isoph/Insulin Regular (Novolin 70/30 (70/30 Units/Ml) 10 Ml) 20 units SC Q12 [facility] Last Admin: 08/22/17 10:29 Dose: 20 units Losartan Potassium (Cozaar) 50 mg PO BID [facility] Last Admin: 08/22/17 10:30 Dose: 50 mg Pantoprazole Sodium (Protonix Ec Tab) 40 mg PO DAILY [facility] Last Admin: 08/22/17 10:29 Dose: 40 mg Saccharomyces Boulardii (Florastor) 250 mg PO BID [facility] Last Admin: 08/22/17 10:29 Dose: 250 mg - Labs Labs: 08/22/17 08:38 08/22/17 08:38 PT 10.4 SECONDS (9.7-12.2) 08/21/17 06:39 INR 0.9 08/21/17 06:39 APTT 34 SECONDS (21-34) 08/20/17 07:54 - Constitutional Appears: Non-toxic, No Acute Distress - Head Exam Head Exam: ATRAUMATIC, NORMAL INSPECTION - Eye Exam Eye Exam: EOMI Pupil Exam: NORMAL ACCOMODATION - ENT Exam ENT Exam: Mucous Membranes Moist - Respiratory Exam Respiratory Exam: Clear to Ausculation Bilateral, NORMAL BREATHING PATTERN. absent: Respiratory Distress - Cardiovascular Exam Cardiovascular Exam: REGULAR RHYTHM, +S1, +S2 - GI/Abdominal Exam GI & Abdominal Exam: Soft, Normal Bowel Sounds. absent: Distended, Guarding, Tenderness - Exam Exam: absent: Circumcision, Scrotal Swelling, Testicular Tenderness, Uretheral Discharge, Bladder Distension Additional comments: Glans of penis irritated red, cracked, with white spots. No suspicious lesions or discharge present. Non tender. - Extremities Exam Extremities Exam: Normal Inspection Additional comments: right foot dressing and boot in place - Back Exam Back Exam: NORMAL INSPECTION - Neurological Exam Neurological Exam: Alert, Awake, CN II-XII Intact, Oriented x3 Neuro motor strength exam: Left Upper Extremity: 5, Right Upper Extremity: 5, Left Lower Extremity: 5, Right Lower Extremity: 5 - Psychiatric Exam Psychiatric exam: Normal Affect, Normal Mood - Skin Skin Exam: Dry, Intact, Normal Color, Warm Assessment and Plan - Assessment and Plan (Free Text) Assessment: Acute Osteomyelitis Diabetic ulcer of right foot Assessment and Plan: * Addressograph Operator consult, Dr. Edu Rodgers-->help appreciated: likely for OR tomorrow if stress test normal * Infectious disease, Dr. Downing-->help appreciated * Cardiology, Dr. Stephen-->help appreciated * Stress test for 08/23/17 in AM * Podiatry procedure for Wednesday in the afternoon pending cardiac risk assessment * Chest xray (08/20/17): no active disease * Foot Xray (08/20/17): no definite radiographic evidence of acute osteomyelitis * MRI (08/20/17): prominent soft tissue ulceration and defect noted at the level of the 1st distal phalanx. Cortical irregularity with signal changes noted within the adjacent marrow of the 1st distal phalanx with decreased T1 signal and increased STIR signal concerning for acute osteomyelitis. Mild signal changed noted at the articular surface at he head of the 1st proximal phalax demonstrating some patchy decreased T1 signal with increased STIR signal. Osteochondral change however developing early acute osteomyelitis at this level cannot entirely be excluded. Clinical correlation. Mild hallux valgus deformity. Resection of the 2nd digit to the metatarsal head. * Cefepime 2gram IVPB Q12H (active since 08/20/17) * Vancomycin 2 gram IVPB Q12H (active since 08/20/17) - dose increased today from 1-2grm (first dose at 2 grams 2:00PM 07/22) * Vanc trough 9.5 (goal 15-20) - f.u repeat trough on 07/24 1:30AM) * Florastor 250mg PO BID * 2/3 LE Dopplers negative Status: Acute Uncontrolled Diabetes mellitus Assessment and Plan: * Hgba1c: 10.6 * Start Novolin 70/30 20 units [id number] * Start Novolog insulin sliding scale subq (Medium dose) * Monitor how much of insulin sliding scale is used over 24hours and adjust AM/ PM insulin * Will adjust evening insulin for tonight * Will hold Aspirin in light of possible podiatric procedure * Start Cozaar 50mg PO BID (hold SBP<100) * Accuchecks QAC and HS * Diabetic diet * Diabetic education referral Status: Acute Newly Diagnosed Hypertension Assessment and Plan: * Cardiology consult, Dr. Stephen, help appreciated. Consulted for cardiac clearance and baseline cardiac assessment * Patient for stress test tomorrow * Start Losartan 50 mg PO BID (hold SBP<100) * f/u echo-->pending official report * hold aspirin in light of pending podiatric procedure * Stress test for August 23 for cardiac risk assessment Balantitis Assessment and Plan: * Likely secondary to yeast due to antibioic use * Lotrimin 1% TOP apply BID Prophylactic measure Assessment and Plan: * GI: Protonix 40mg PO daily * DVT ppx:: SCDs * DVT ppx: Lovenox 40mg subqdaily - will be held tonight * NPO after midnight Status: Acute Disposition: Optimize sugar control. Patient is pending stress test for cardiology risk assessment prior to podiatric procedure for August. Patient for possible podiatric procedure OR on August 23 in PM pending cardiac risk assessment. Will hold anticoagulation, last dose Wednesday for OR on Wednesday. Surgery and anesthesia to discuss risks and benefits of procedure prior to OR respectively, Pending official reports of echocardiogram. <Cecille Munroe V - Last Filed: 08/23/17 21:53> Objective - Vital Signs/Intake and Output Vital Signs (last 24 hours): Temp Pulse Resp BP Pulse Ox 97.4 F L 83 20 132/85 96 08/23/17 16:26 08/23/17 16:26 08/23/17 16:26 08/23/17 16:26 08/23/17 16:26 Intake and Output: 08/23/17 08/24/17 18:59 06:59 Intake Total 0 Balance 0 - Medications Medications: Current Medications Acetaminophen (Tylenol 325mg Tab) 650 mg PO Q6 PRN PRN Reason: Pain, Mild (1-3) Clotrimazole (Lotrimin 1%) 1 gm TOP BID [facility] Stop: 08/29/17 10:31 Last Admin: 08/23/17 18:01 Dose: 1 applic Enoxaparin Sodium (Lovenox) 40 mg SC DAILY [facility] Last Admin: 08/22/17 10:29 Dose: Not Given Vancomycin HCl 2 gm/ Sodium (Chloride) 500 mls @ 166.7 mls/hr IVPB Q12H [facility] Last Admin: 08/23/17 15:55 Dose: 166.7 mls/hr Insulin Aspart (Novolog) 0 unit SC ACHS [facility] PRN Reason: Protocol Last Admin: 08/23/17 18:01 Dose: 3 unit Insulin Human Isoph/Insulin Regular (Novolin 70/30 (70/30 Units/Ml) 10 Ml) 20 units SC Q12 [facility] Last Admin: 08/23/17 10:35 Dose: Not Given Losartan Potassium (Cozaar) 50 mg PO BID [facility] Last Admin: 08/23/17 18:00 Dose: 50 mg Pantoprazole Sodium (Protonix Ec Tab) 40 mg PO DAILY [facility] Last Admin: 08/23/17 10:35 Dose: Not Given Saccharomyces Boulardii (Florastor) 250 mg PO BID [facility] Last Admin: 08/23/17 18:00 Dose: 250 mg Tramadol HCl (Ultram) 25 mg PO TID [facility] Last Admin: 08/23/17 18:53 Dose: Not Given - Labs Labs: 08/23/17 07:34 08/23/17 07:34 PT 10.4 SECONDS (9.7-12.2) 08/21/17 06:39 INR 0.9 08/21/17 06:39 APTT 34 SECONDS (21-34) 08/20/17 07:54 Attending/Attestation - Attestation I have personally seen and examined this patient.: Yes I have fully participated in the care of the patient.: Yes I have reviewed all pertinent clinical information, including history, physical exam and plan: Yes Notes (Text): This is late computer entry for 08/22/17. Patient seen, examined and case discussed with day-time resident. Patient reporting his foreskin is cracking and is quite painful. I have looked at his genital area with his permission and witnessed by my resident. Patient's foreskin has breaks, no bleeding, has white plaques between the foreskin and glans and small plaques over the penis. Patient notes he has had this penile irritation following antibiotic use in the past. Resident has clarified with pharmacy prior to starting Lotrimin for the patient. Patient given Benadryl 12.5mg IV X1 and Pepcid 20mg IVx1 in relief of symptoms. patient denies feeling itchiness or swelling anywhere over the body. Patient is aware he is going for stress test tomorrow with cardiology and pending results possible OR with podiatry in regards to partial amputation. 1. Acute Osteomyelitis Diabetic ulcer of right foot Assessment and Plan: * Addressograph Operator consult, Dr. Edu Rodgers-->help appreciated: likely for OR tomorrow if stress test normal * Infectious disease, Dr. Downing-->help appreciated * Cardiology, Dr. Stephen-->help appreciated * Stress test for 08/23/17 in AM * Podiatry procedure for Wednesday in the afternoon pending cardiac risk assessment * Chest xray (08/20/17): no active disease * Foot Xray (08/20/17): no definite radiographic evidence of acute osteomyelitis * MRI (08/20/17): prominent soft tissue ulceration and defect noted at the level of the 1st distal phalanx. Cortical irregularity with signal changes noted within the adjacent marrow of the 1st distal phalanx with decreased T1 signal and increased STIR signal concerning for acute osteomyelitis. Mild signal changed noted at the articular surface at he head of the 1st proximal phalax demonstrating some patchy decreased T1 signal with increased STIR signal. Osteochondral change however developing early acute osteomyelitis at this level cannot entirely be excluded. Clinical correlation. Mild hallux valgus deformity. Resection of the 2nd digit to the metatarsal head. * Cefepime 2gram IVPB Q12H (active since 08/20/17) * Vancomycin 1 gram IVPB Q12H (active since 08/20/17) * Vanc trough 9.5 (goal 15-20) - f.u repeat trough on 08/24 1:30AM) * Florastor 250mg PO BID * 08/21 LE Dopplers negative Status: Acute 2. Uncontrolled Diabetes mellitus Assessment and Plan: * Hgba1c: 10.6 * Start Novolin 70/30 20 units [id number] * Start Novolog insulin sliding scale subq (Medium dose) * Monitor how much of insulin sliding scale is used over 24hours and adjust AM/ PM insulin * Will hold Aspirin in light of possible podiatric procedure * Start Cozaar 50mg PO BID (hold SBP<100) * Accuchecks QAC and HS * Diabetic diet * Diabetic education referral Status: Acute 3. Newly Diagnosed Hypertension Assessment and Plan: * Cardiology consult, Dr. Stephen, help appreciated. Consulted for cardiac clearance and baseline cardiac assessment * Patient for stress test tomorrow * Start Losartan 50 mg PO BID (hold SBP<100) * f/u echo-->pending official report * hold aspirin in light of pending podiatric procedure * Stress test for August 23 for cardiac risk assessment 4. Balantitis Assessment and Plan: * Likely secondary to yeast due to antibioic use * Lotrimin 1% TOP apply BID (for 7 days) * If does not improve, will consider urology consult 5. Prophylactic measure Assessment and Plan: * GI: Protonix 40mg PO daily * DVT ppx:: SCDs * DVT ppx: Lovenox 40mg subqdaily - will be held tonight * NPO after midnight Status: Acute Disposition: Optimize sugar control. Patient is pending stress test for cardiology risk assessment prior to podiatric procedure for August. Patient for possible podiatric procedure OR on August 23 in PM pending cardiac risk assessment. Will hold anticoagulation, last dose Wednesday for OR on Wednesday. Surgery and anesthesia to discuss risks and benefits of procedure prior to OR respectively, Pending official reports of echocardiogram.
--- NOTE | 2017-08-22 13:44 | CP.PCM.PN ---
Subjective - Date & Time of Evaluation Date of Evaluation: 08/22/17 Time of Evaluation: 14:57 - Subjective Subjective: Podiatry Progress Note- Dr. Rodgers 57 y.o male seen at bedside for infected right hallux and OM. Pt is seen laying comfortably in bed, in NAD, and AA0x3. Patient denies acute overnight events. Patient reports no pain. He reports he lacks sensation to this foot. Patient denies n/v/sob/cp/chills or f today. Patient understands that he will go to the OR for partial amputation of right hallux depending on cardiac stress test if they are normal. Patient understands and agrees to surgery. Patient will be NPO past midnight today. Patient understands and agrees. Dressing is seen c/d/i without strikethrough. Objective - Vital Signs/Intake and Output Vital Signs (last 24 hours): Temp Pulse Resp BP Pulse Ox 97.7 F 76 20 142/88 96 08/22/17 07:40 08/22/17 10:29 08/22/17 07:40 08/22/17 10:29 08/22/17 07:40 Intake and Output: 08/22/17 08/22/17 06:59 18:59 Intake Total 200 Balance 200 - Medications Medications: Current Medications Clotrimazole (Lotrimin 1%) 1 gm TOP BID [facility] Stop: 08/29/17 10:31 Last Admin: 08/22/17 10:55 Dose: 1 applic Enoxaparin Sodium (Lovenox) 40 mg SC DAILY [facility] Last Admin: 08/22/17 10:29 Dose: Not Given Cefepime HCl (Maxipime Iv 2 Gm Premix) 2 gm in 100 mls @ 200 mls/hr IVPB Q12H [facility] Stop: 08/25/17 22:01 Last Admin: 08/22/17 10:50 Dose: 200 mls/hr Vancomycin HCl 2 gm/ Sodium (Chloride) 500 mls @ 166.7 mls/hr IVPB Q12 [facility] Insulin Aspart (Novolog) 0 unit SC ACHS [facility] PRN Reason: Protocol Last Admin: 08/22/17 13:18 Dose: 10 unit Insulin Human Isoph/Insulin Regular (Novolin 70/30 (70/30 Units/Ml) 10 Ml) 20 units SC Q12 [facility] Last Admin: 08/22/17 10:29 Dose: 20 units Losartan Potassium (Cozaar) 50 mg PO BID [facility] Last Admin: 08/22/17 10:30 Dose: 50 mg Pantoprazole Sodium (Protonix Ec Tab) 40 mg PO DAILY [facility] Last Admin: 08/22/17 10:29 Dose: 40 mg Saccharomyces Boulardii (Florastor) 250 mg PO BID [facility] Last Admin: 08/22/17 10:29 Dose: 250 mg - Labs Labs: 08/22/17 08:38 08/22/17 08:38 PT 10.4 SECONDS (9.7-12.2) 08/21/17 06:39 INR 0.9 08/21/17 06:39 APTT 34 SECONDS (21-34) 08/20/17 07:54 - Constitutional Appears: Well, Non-toxic, No Acute Distress - Extremities Exam Additional comments: B/L LE exam: VASC- DP/PT pulses are palpable (graded 2/4 b/), skin temp runs warm to cool left and warm to warm right (with increased callor to hallux), cap refill < 3 sec to all digits, mod-severe edema noted to R hallux NEURO- gross and protective pedal sensation is diminished DERM- full thickness ulceration is present to medial R hallux IPJ measures approx 1.5x0.6x0.5 cm with mixed fibro-granular base, wound probes to deep sub- cutaneous layer just before bone, neg sinus tracking, neg malodor, neg fluctuance, neg purulence, neg surrounding erythema, neg ascending cellulitis, nails x 10 are thickned and elongated, left foot is free of any lesions ORTHO- previous 2nd digit amp R foot that has completely healed, no other deformities - Neurological Exam Neurological Exam: Alert, Awake, Oriented x3 - Psychiatric Exam Psychiatric exam: Normal Affect, Normal Mood Assessment and Plan - Assessment and Plan (Free Text) Assessment: 57 yo male patient with full-thickness ulceration and +OM R hallux 2/2 diabetic neuropathy and uncontrolled DMII Plan: Pt S&E at the bedside Plan discussed with attending Dr. Rodgers Chart, labs and vitals reviewed: afebrile, no leukocytosis (WBC=5.1) CRP elevated 10.68 on 08/21/17 --> 6.33 on 06/21/18 Elevated ESR 45 (08/20/17) . Elevated ESR 21 (2/3/18) A1C elevated 10.6 Wound cx: S. Aureus R foot x-ray: inconclusive for OM R LE MRI: + OM distal phalanx and head of proximal phalanx of R hallux IV abx as per ID Discussed w/ pt conservative vs. surgical options and addressed all questions and concerns. Plan for OR tomorrow for partial amp. R hallux w/ Dr. Rodgers pending cardiac clearance Patient will go for a cardiac stress tomorrow in AM Will require medical and cardiac clx prior to surgery Hold lovenox Wednesday NPO for Wednesday breakfast Wound dressed betadine, DSD WBAT w/ surgical shoe right foot
[2017-08-22] MEDS ORDERED: Vancomycin 2 GM in Sodium Chloride 0.9% 500 ML IVPB SCH ×2 (14:00→22:00)
--- NOTE | 2017-08-22 17:50 | CARD ---
APPROVED REPORT EXAM: Two-dimensional and M-mode echocardiogram with Doppler and color Doppler. Other Information Quality : GoodRhythm : INDICATION CHECK EF RISK FACTORS Hypertension Diabetes M-Mode DIMENSIONS RVDd2.08 (2.1-3.2cm)Left Atrium (MM)4.14 (2.5-4.0cm) IVSd1.18 (0.7-1.1cm)Aortic Root3.05 (2.2-3.7cm) LVDd4.72 (4.0-5.6cm)Aortic Cusp Exc.1.72 (1.5-2.0cm) PWd1.28 (0.7-1.1cm)FS (%) 35 % LVDs3.05 (2.0-3.8cm)LVEF (%)65 (>50%) Mitral Valve MV E Saczsxzz75.4cm/sMV A Tbavwpwn23.9cm/sE/A ratio0.9 TDI E/Lateral E'0.0E/Medial E'0.0 LEFT VENTRICLE The left ventricle is normal size. There is mild concentric left ventricular hypertrophy. Left ventricle systolic function is normal. The Ejection Fraction is 60-65%. There is normal LV segmental wall motion. Tissue Doppler imaging reveals abnormal left ventricular diastolic dysfunction. RIGHT VENTRICLE The right ventricle is normal size. There is normal right ventricular wall thickness. The right ventricular systolic function is normal. ATRIA The left atrium is mildly dilated. The right atrium size is normal. The interatrial septum is intact with no evidence for an atrial septal defect. AORTIC VALVE The aortic valve is normal in structure. No aortic regurgitation is present. There is no aortic valvular stenosis. There is no aortic valvular vegetation. MITRAL VALVE The mitral valve is normal in structure. There is no evidence of mitral valve prolapse. There is no mitral valve stenosis. Mitral regurgitation is trace to mild. TRICUSPID VALVE The tricuspid valve is normal in structure. There is mild tricuspid regurgitation. There is no tricuspid valve stenosis. PULMONIC VALVE The pulmonic valve is not well visualized. There is no pulmonic valvular regurgitation. GREAT VESSELS The aortic root is normal in size. PERICARDIAL EFFUSION There is no significant pericardial effusion. <Conclusion> Left ventricle systolic function is normal. The Ejection Fraction is 60-65%. Hypertensive heart disease. Diastolic dysfunction. No aortic regurgitation is present. Mitral regurgitation is trace to mild. There is mild tricuspid regurgitation. There is no pulmonic valvular regurgitation.
[2017-08-23] MEDS: Vancomycin 2 GM in Sodium Chloride 0.9% 500 ML IVPB SCH ×3 (03:59→15:55)
[2017-08-23 07:54] LABS: BASO % 0.8 % (0.0-2.0); EOS # 0.2 K/uL (0.0-0.7); HEMOGLOBIN 14.6 g/dL (12.0-18.0); LYMPH # 1.9 K/uL (1.0-4.3); MEAN PLATELET VOLUME 8.3 fL (7.2-11.7); MONO # 0.5 K/uL (0.0-0.8); NEUT # 2.3 K/uL (1.8-7.0); RED CELL DISTRIBUTION WIDTH 13.1 % (11.5-14.5)
[2017-08-23] MEDS: (Novolog) Insulin Aspart, Recombinant 100 u/ml 10 ml vial SC SCH ×4 (07:59→21:47)
[2017-08-23 08:03] LABS: ALBUMIN 3.3 g/dL (3.5-5.0); ALT/SGPT 16 U/L (21-72); AST/SGOT 20 U/L (17-59); BLOOD UREA NITROGEN 18 mg/dL (9-20); CALCIUM 8.6 mg/dl (8.6-10.4); GFR AFRICAN-AMERICAN > 60; GFR NON-AFRICAN AMERICAN > 60; MAGNESIUM 1.9 mg/dL (1.6-2.3)
[2017-08-23 08:06] LABS: EOS % 4.1 % (0.0-4.0); LYMPH % 38.6 % (20.0-40.0); MEAN CELL VOLUME 85.9 fL (80.0-94.0); MEAN CORPUSCULAR HEMOGLOBIN 29.2 pg (27.0-31.0); MONO % 10.3 % (0.0-10.0); NEUT % 46.2 % (50.0-75.0); NRBC % 0.1 % (0.0-2.0); WHITE BLOOD COUNT 4.9 K/uL (4.8-10.8)
[2017-08-23] MEDS ORDERED: Aminophylline 25 mg/ml Inj ONE (08:38)
[2017-08-23] MEDS: (Novolin 70/30) NPH/Regular 70/30 Units/ml 10 ml vial SC SCH ×2 (10:35→21:47)
[2017-08-23] MEDS: Pantoprazole 40 mg EC Tab PO SCH (10:35)
[2017-08-23] MEDS: Saccharomyces Boulardi 250 mg Cap PO SCH ×2 (10:35→18:00)
[2017-08-23] MEDS: Clotrimazole 1% Cream 15 GM TUBE TOP SCH ×2 (10:35→18:01)
[2017-08-23] MEDS: Cefepime IV 2 gm in Dextrose 2 GM/100 ML BAG IVPB SCH (10:35)
--- NOTE | 2017-08-23 10:40 | CP.PCM.PN ---
Subjective - Date & Time of Evaluation Date of Evaluation: 08/23/17 Time of Evaluation: 10:36 - Subjective Subjective: Cardiology progress note for Dr. Stephen Patient seen and examined at bedside. Patient mentioned his penile irritation to me, I informed him of the topical antifungal being given. Patient denies any other complaints at this time. Objective - Vital Signs/Intake and Output Vital Signs (last 24 hours): Temp Pulse Resp BP Pulse Ox 97.6 F 62 20 119/75 97 08/23/17 09:30 08/23/17 09:30 08/23/17 09:30 08/23/17 09:30 08/23/17 09:30 Intake and Output: 08/23/17 08/23/17 06:59 18:59 Intake Total 500 Balance 500 - Medications Medications: Current Medications Clotrimazole (Lotrimin 1%) 1 gm TOP BID [facility] Stop: 08/29/17 10:31 Last Admin: 08/22/17 18:13 Dose: 1 applic Enoxaparin Sodium (Lovenox) 40 mg SC DAILY [facility] Last Admin: 08/22/17 10:29 Dose: Not Given Cefepime HCl (Maxipime Iv 2 Gm Premix) 2 gm in 100 mls @ 200 mls/hr IVPB Q12H [facility] Stop: 08/25/17 22:01 Last Admin: 08/22/17 21:50 Dose: 200 mls/hr Vancomycin HCl 2 gm/ Sodium (Chloride) 500 mls @ 166.7 mls/hr IVPB Q12H [facility] Last Admin: 08/23/17 03:59 Dose: 166.7 mls/hr Insulin Aspart (Novolog) 0 unit SC ACHS [facility] PRN Reason: Protocol Last Admin: 08/23/17 07:59 Dose: Not Given Insulin Human Isoph/Insulin Regular (Novolin 70/30 (70/30 Units/Ml) 10 Ml) 20 units SC Q12 [facility] Last Admin: 08/22/17 21:50 Dose: 20 units Losartan Potassium (Cozaar) 50 mg PO BID [facility] Last Admin: 08/22/17 18:13 Dose: 50 mg Pantoprazole Sodium (Protonix Ec Tab) 40 mg PO DAILY [facility] Last Admin: 08/22/17 10:29 Dose: 40 mg Saccharomyces Boulardii (Florastor) 250 mg PO BID [facility] Last Admin: 08/22/17 18:13 Dose: 250 mg - Labs Labs: 08/23/17 07:34 08/23/17 07:34 PT 10.4 SECONDS (9.7-12.2) 08/21/17 06:39 INR 0.9 08/21/17 06:39 APTT 34 SECONDS (21-34) 08/20/17 07:54 - Additional Findings Additional findings: Physical Exam: Vital Signs as below Const'l: Patient is visibly dry; awake alert & oriented x 4, no acute distress Head/Neck: neck supple, no jvd, trachea midline, carotid midline, no cervical /head mass Eyes: pupils equally reactive to light and accommodation, nonicteric sclera, extraocular intact ENT: auditory acuity grossly intact, throat not congested, no nasal deformity Cardio: regular rate, regular rhythm, no murmurs rubs gallops, no carotid bruit, normal s1, s2 Pulm: no accessory muscle use, equal normal breath sounds bilaterally, clear to ausculation bilaterally Abd: soft non tender non-distended, normal bowel sounds x 4 quadrants, no palpable masses Derm: no rashes, no ulcers, no lesions Extr: +Patient visibly dry; +Severe erythema, discharge, infection on R hallux and R second toe; no edema, no cyanosis, no calf tenderness, no lesions, no varicosities Neuro: cranial nerves II-XII grossly intact, upper extremity and lower extremity 5/5 muscle strength bilaterally, no loss of sensation in upper extremities, lower extremities bilaterally and core Assessment and Plan - Assessment and Plan (Free Text) Assessment: Assessment and Plan: 57 year old male with past medical history of uncontrolled diabetes, hypertension, tobacco abuse, and alcohol abuse presents with 3 week duration of right toe infection. Patient was found to have osteomyelitis on MRI. Patient' s hemoglobin is 10.4, glucose on admission was in the 400s. Patient is also hypertensive without any home medications, being treated with Cozaar here. Pre-Op Risk Stratification - Patient has an ASCVD of 27% (10 year) and 69% (lifetime). - Per AHA/ACC guidelines, patient needs a stress test Hypertension - No home medications - Patient is on Cozaar 50 here Diabetes - Per primary Balantitis - Per primary Dispo: Patient's stress test shows normal myocardial perfusion Per AHA/ACC guidelines, Patient may proceed to surgery with low risk.
--- NOTE | 2017-08-23 13:17 | VASCLAB ---
STUDY DESCRIPTION: HISTORY: r/o arterial dx PRIORS: None. TECHNIQUE: Pulse volume recording waveforms and segmental pressures of bilateral lower extremities at multiple levels were obtained. Ankle Brachial Indices (ABIs) were calculated. Report prepared by MARCELLA Kevin, RVT RIGHT LOWER EXTREMITY: * Brachial artery: Pressure - 118 mmHg. * High thigh: Pressure - 160 mmHg: Ratio - 1.33: PVR waveform - Pulsatile * Low thigh: Pressure - 154 mmHg: Ratio - 1.28 PVR waveform: Pulsatile * Calf: Pressure - 173 mmHg: Ratio - 1.44 PVR waveform: Pulsatile * Posterior tibial Artery: Pressure - 143 mmHg: Ratio - 1.19 PVR waveform: Pulsatile * Dorsalis pedis Artery: Pressure - 149 mmHg: Ratio - 1.24 PVR waveform: Pulsatile * Great toe: Pressure - mmHg: Ratio - PVR waveform: Ankle brachial index (DIA): 1.24 LEFT LOWER EXTREMITY: * Brachial artery: Pressure - 120 mmHg. * High thigh: Pressure - 156 mmHg: Ratio - 1.30: PVR waveform - Pulsatile * Low thigh: Pressure - 153 mmHg: Ratio - 1.28 PVR waveform: Pulsatile * Calf: Pressure - 147 mmHg: Ratio - 1.23 PVR waveform: Pulsatile * Posterior tibial Artery: Pressure - 149 mmHg: Ratio - 1.24 PVR waveform: Pulsatile * Dorsalis pedis Artery: Pressure - 153 mmHg: Ratio - 1.28 PVR waveform: Pulsatile * Great toe: Pressure - mmHg: Ratio - PVR waveform: Ankle brachial index (DIA): 1.28 OTHER FINDINGS: Right: Left: IMPRESSION: Right: There was no evidence of hemodynamically significant arterial insufficiency in the right lower extremity. Left: The ankle pressure index of the left lower extremity is non-diagnostic due to possible arterial wall calcifications.
[2017-08-23] MEDS ORDERED: Bupivacaine HCl 0.5% PF (10 ml) Inj ONE (13:23)
[2017-08-23] MEDS ORDERED: Lidocaine 2% Inj (20ml) ONE (13:23)
[2017-08-23] MEDS ORDERED: Bacitracin 150,000 UNIT in Sodium Chloride 0.9% Irrig 3,000 ML IR SCH (13:45)
--- NOTE | 2017-08-23 14:56 | PCM.SURG1 ---
Surgeon's Initial Post Op Note - Surgeon's Notes Surgeon: Dr. Val Rodgers, DPM Senior Analyst Developer: Mallory Bhatia, PGY-2 Type of Anesthesia: Local (20mL 1:1 mixture 2% lidocaine plaine to 0.5% marciane plain) Anesthesia Administered By: Dr. Rodgers Pre-Operative Diagnosis: Right hallux osteomyelitis Operative Findings: See dictation. I: 10mL 0.5% marcaine plain Post-Operative Diagnosis: Right hallux osteomyelitis Operation Performed: Right partial hallux amputation Specimen/Specimens Removed: 1) Dirty Margin- Wound culture. 2) Clean Margins- Wound culture. 3) Distal hallux bone and soft tissue. Estimated Blood Loss: EBL {In ML}: 20 Blood Products Given: N/A Drains Used: No Drains Post-Op Condition: Good Date of Surgery/Procedure: 08/23/17 Time of Surgery/Procedure: 14:56
--- NOTE | 2017-08-23 15:47 | RAD ---
PROCEDURE: Right Foot Radiographs. HISTORY: s/p right foot surgery COMPARISON: None. FINDINGS: BONES: Status post amputation 1st digit mid 1st proximal phalanx. Amputation 2nd digit at MTP articulation. No acute fracture. No lytic or blastic osseous lesion. JOINTS: Normal. SOFT TISSUES: Normal. OTHER FINDINGS: None. IMPRESSION: Amputation 1st digit mid 1st proximal phalanx and 2nd digit at MTP articulation.
--- NOTE | 2017-08-23 16:21 | CP.PCM.PN ---
Subjective - Date & Time of Evaluation Date of Evaluation: 08/23/17 Time of Evaluation: 06:18 - Subjective Subjective: Patient was seen and examined at bedside. Per nursing no acute events occurred overnight. The patient is expected to undergo cardiac stress test and partial amputation today pending results of stress test. Patient denies any chest pain , lightheadedness, dizziness, changes in vision, nausea, vomiting, fevers, chills, or any other complaints. Objective - Vital Signs/Intake and Output Vital Signs (last 24 hours): Temp Pulse Resp BP Pulse Ox 97.6 F 62 20 119/75 97 08/23/17 09:30 08/23/17 09:30 08/23/17 09:30 08/23/17 09:30 08/23/17 09:30 Intake and Output: 08/23/17 08/23/17 06:59 18:59 Intake Total 500 Balance 500 - Medications Medications: Current Medications Acetaminophen (Tylenol 325mg Tab) 650 mg PO Q6 PRN PRN Reason: Pain, Mild (1-3) Clotrimazole (Lotrimin 1%) 1 gm TOP BID [facility] Stop: 08/29/17 10:31 Last Admin: 08/23/17 10:35 Dose: Not Given Enoxaparin Sodium (Lovenox) 40 mg SC DAILY [facility] Last Admin: 08/22/17 10:29 Dose: Not Given Cefepime HCl (Maxipime Iv 2 Gm Premix) 2 gm in 100 mls @ 200 mls/hr IVPB Q12H [facility] Stop: 08/25/17 22:01 Last Admin: 08/23/17 10:35 Dose: Not Given Vancomycin HCl 2 gm/ Sodium (Chloride) 500 mls @ 166.7 mls/hr IVPB Q12H [facility] Last Admin: 08/23/17 15:55 Dose: 166.7 mls/hr Insulin Aspart (Novolog) 0 unit SC ACHS [facility] PRN Reason: Protocol Last Admin: 08/23/17 11:58 Dose: Not Given Insulin Human Isoph/Insulin Regular (Novolin 70/30 (70/30 Units/Ml) 10 Ml) 20 units SC Q12 [facility] Last Admin: 08/23/17 10:35 Dose: Not Given Losartan Potassium (Cozaar) 50 mg PO BID [facility] Last Admin: 08/23/17 10:35 Dose: Not Given Pantoprazole Sodium (Protonix Ec Tab) 40 mg PO DAILY [facility] Last Admin: 08/23/17 10:35 Dose: Not Given Saccharomyces Boulardii (Florastor) 250 mg PO BID [facility] Last Admin: 08/23/17 10:35 Dose: Not Given Tramadol HCl (Ultram) 25 mg PO TID [facility] - Labs Labs: 08/23/17 07:34 08/23/17 07:34 PT 10.4 SECONDS (9.7-12.2) 08/21/17 06:39 INR 0.9 08/21/17 06:39 APTT 34 SECONDS (21-34) 08/20/17 07:54 - Head Exam Head Exam: ATRAUMATIC, NORMAL INSPECTION, NORMOCEPHALIC - Eye Exam Eye Exam: EOMI, Normal appearance, PERRL. absent: Periorbital tenderness Pupil Exam: NORMAL ACCOMODATION, PERRL. absent: Irregular, Unequal - ENT Exam ENT Exam: Mucous Membranes Moist, Normal Exam, Normal Oropharynx - Neck Exam Neck Exam: absent: Lymphadenopathy, Thyromegaly - Respiratory Exam Respiratory Exam: Clear to Ausculation Bilateral, NORMAL BREATHING PATTERN. absent: Chest Wall Tenderness, Prolonged Expiratory Phase, Respiratory Distress - Cardiovascular Exam Cardiovascular Exam: REGULAR RHYTHM, +S1, +S2 - GI/Abdominal Exam GI & Abdominal Exam: Soft, Normal Bowel Sounds. absent: Rigid, Hyperactive Bowel Sounds - Back Exam Back Exam: NORMAL INSPECTION. absent: CVA tenderness (L), CVA tenderness (R), paraspinal tenderness - Neurological Exam Neurological Exam: Alert, Awake, Oriented x3 - Psychiatric Exam Psychiatric exam: Normal Affect, Normal Mood. absent: Anxious, Depressed - Skin Skin Exam: Dry, Intact, Normal Color, Warm Assessment and Plan - Assessment and Plan (Free Text) Plan: Acute Osteomyelitis Diabetic ulcer of right foot Assessment and Plan: * Supervisor Plastering consult, Dr. Edu Rodgers-->help appreciated. S/P partial amputation of the hallux * Infectious disease, Dr. Downing-->help appreciated * Cardiology, Dr. Stephen-->help appreciated * Stress test for 08/23/17 came back normal * Chest xray (08/20/17): no active disease * Foot Xray (08/20/17): no definite radiographic evidence of acute osteomyelitis * MRI (08/20/17): prominent soft tissue ulceration and defect noted at the level of the 1st distal phalanx. Cortical irregularity with signal changes noted within the adjacent marrow of the 1st distal phalanx with decreased T1 signal and increased STIR signal concerning for acute osteomyelitis. Mild signal changed noted at the articular surface at he head of the 1st proximal phalax demonstrating some patchy decreased T1 signal with increased STIR signal. Osteochondral change however developing early acute osteomyelitis at this level cannot entirely be excluded. Clinical correlation. Mild hallux valgus deformity. Resection of the 2nd digit to the metatarsal head. * Cefepime 2gram IVPB Q12H (active since 08/20/17) * Vancomycin 2 gram IVPB Q12H (active since 08/20/17) - dose increased today from 1-2grm (first dose at 2 grams 2:00PM 07/22) * Vanc trough 9.5 (goal 15-20) - f.u repeat trough on 07/24 1:30AM) * Patient not allowing Vancomycin to run at designated times and prolonging the duration between doses of antibiotics. * Florastor 250mg PO BID * 2/3 LE Dopplers negative Status: Acute Uncontrolled Diabetes mellitus Assessment and Plan: * Hgba1c: 10.6 * Continue ISS * Continue Cozaar 50mg PO BID (hold SBP<100) * Accuchecks QAC and HS * Diabetic diet * Diabetic education referral Status: Acute Newly Diagnosed Hypertension Assessment and Plan: * Cardiology consult, Dr. Stephen, help appreciated * Stress test normal. Patient had partial amputation. * Continue Losartan 50 mg PO BID (hold SBP<100) * Echo: 60-65%, Mitral regurgitation race, tricuspid regurgitation * Stress test was normal (See full report) Balantitis Assessment and Plan: * Likely secondary to yeast due to antibiotic use * Lotrimin 1% TOP apply BID Prophylactic measure Assessment and Plan: * GI: Protonix 40mg PO daily * DVT ppx:: SCDs * DVT ppx: Lovenox 40mg subqdaily - will be held tonight * NPO after midnight Status: Acute
[2017-08-23 16:28] VITALS: O2SAT 96
[2017-08-23] MEDS: Tramadol 25 mg PO SCH ×2 (18:53→19:52)
--- NOTE | 2017-08-23 20:22 | CP.PCM.PN ---
Subjective - Date & Time of Evaluation Date of Evaluation: 08/23/17 Time of Evaluation: 05:40 - Subjective Subjective: dictated Objective - Vital Signs/Intake and Output Vital Signs (last 24 hours): Temp Pulse Resp BP Pulse Ox 97.4 F L 83 20 132/85 96 08/23/17 16:26 08/23/17 16:26 08/23/17 16:26 08/23/17 16:26 08/23/17 16:26 Intake and Output: 08/23/17 08/24/17 18:59 06:59 Intake Total 0 Balance 0 - Medications Medications: Current Medications Acetaminophen (Tylenol 325mg Tab) 650 mg PO Q6 PRN PRN Reason: Pain, Mild (1-3) Clotrimazole (Lotrimin 1%) 1 gm TOP BID [facility] Stop: 08/29/17 10:31 Last Admin: 08/23/17 18:01 Dose: 1 applic Enoxaparin Sodium (Lovenox) 40 mg SC DAILY [facility] Last Admin: 08/22/17 10:29 Dose: Not Given Cefepime HCl (Maxipime Iv 2 Gm [facility]) 2 gm in 100 mls @ 200 mls/hr IVPB Q12H [facility] Stop: 08/25/17 22:01 Last Admin: 08/23/17 10:35 Dose: Not Given Vancomycin HCl 2 gm/ Sodium (Chloride) 500 mls @ 166.7 mls/hr IVPB Q12H [facility] Last Admin: 08/23/17 15:55 Dose: 166.7 mls/hr Insulin Aspart (Novolog) 0 unit SC ACHS [facility] PRN Reason: Protocol Last Admin: 08/23/17 18:01 Dose: 3 unit Insulin Human Isoph/Insulin Regular (Novolin 70/30 (70/30 Units/Ml) 10 Ml) 20 units SC Q12 [facility] Last Admin: 08/23/17 10:35 Dose: Not Given Losartan Potassium (Cozaar) 50 mg PO BID [facility] Last Admin: 08/23/17 18:00 Dose: 50 mg Pantoprazole Sodium (Protonix Ec Tab) 40 mg PO DAILY [facility] Last Admin: 08/23/17 10:35 Dose: Not Given Saccharomyces Boulardii (Florastor) 250 mg PO BID [facility] Last Admin: 08/23/17 18:00 Dose: 250 mg Tramadol HCl (Ultram) 25 mg PO TID [facility] Last Admin: 08/23/17 18:53 Dose: Not Given - Labs Labs: 08/23/17 07:34 08/23/17 07:34 PT 10.4 SECONDS (9.7-12.2) 08/21/17 06:39 INR 0.9 08/21/17 06:39 APTT 34 SECONDS (21-34) 08/20/17 07:54
[2017-08-23] MEDS ORDERED: Vancomycin 1.5 GM in Sodium Chloride 0.9% 500 ML IVPB SCH ×2 (22:50→23:00)
--- NOTE | 2017-08-24 00:54 | PN ---
DATE: The patient was seen by the drill sharpener, and he had a surgery on his right foot and they did a partial amputation, and he said he was told he will be taking antibiotics for few days and will be going home, and he is excited about it. He also wants his insurance to be taken care of as there are some problems with it, so I told him that he should speak to the family caseworker or social sciences department chair, may be they can help him out as he has some problems with the total and he may not be able to get medicines. He says that he always has trouble with it. He did come in with osteomyelitis, underwent partial amputation. His wound cultures came out to be methicillin-resistant Staphylococcus aureus, and he is in isolation at this time. His medications, he has been getting his vancomycin which is 2 gm q.12 hours, was started today, and he is still on cefepime and cefepime was not given now so, we will discontinue the cefepime and discontinue the vancomycin as he has only MRSA in the wound. Once he improves clinically and satisfied with the drill sharpener, he probably can go home. We will see him, and may send him home on some oral antibiotics as this methicillin-resistant Staphylococcus aureus is pretty sensitive to other medications like Cipro and Levaquin and Bactrim; and we will follow. Chavez Downing MD
[2017-08-24] MEDS: (Novolog) Insulin Aspart, Recombinant 100 u/ml 10 ml vial SC SCH ×2 (07:31→13:01)
[2017-08-24 08:37] VITALS: BP 116/77; PULSE 69; RESP 20; TEMP 97.7
[2017-08-24] MEDS: Pantoprazole 40 mg EC Tab PO SCH (10:25)
[2017-08-24] MEDS: Saccharomyces Boulardi 250 mg Cap PO SCH (10:26)
[2017-08-24] MEDS: (Novolin 70/30) NPH/Regular 70/30 Units/ml 10 ml vial SC SCH (10:26)
[2017-08-24] MEDS: Enoxaparin 40 mg Syringe SC SCH (10:28)
[2017-08-24] MEDS: Tramadol 25 mg PO SCH ×2 (10:28→14:15)
[2017-08-24] MEDS: Clotrimazole 1% Cream 15 GM TUBE TOP SCH (10:33)
[2017-08-24 11:33] LABS: BASO % 0.4 % (0.0-2.0); EOS # 0.1 K/uL (0.0-0.7); EOS % 2.3 % (0.0-4.0); HEMOGLOBIN 15.1 g/dL (12.0-18.0); LYMPH # 1.6 K/uL (1.0-4.3); LYMPH % 27.3 % (20.0-40.0); MEAN CELL VOLUME 85.8 fL (80.0-94.0); MEAN CORPUSCULAR HEMOGLOBIN 29.3 pg (27.0-31.0); MEAN CORPUSCULAR HGB CONC 34.1 g/dL (33.0-37.0); MEAN PLATELET VOLUME 8.6 fL (7.2-11.7); MONO # 0.4 K/uL (0.0-0.8); MONO % 6.9 % (0.0-10.0); NEUT # 3.7 K/uL (1.8-7.0); NEUT % 63.1 % (50.0-75.0); NRBC % 0.1 % (0.0-2.0); RBC 5.16 Mil/uL (4.40-5.90); RED CELL DISTRIBUTION WIDTH 13.3 % (11.5-14.5); WHITE BLOOD COUNT 5.9 K/uL (4.8-10.8)
[2017-08-24 11:47] LABS: ALB/GLOB RATIO 1.1 (1.0-2.1); ALBUMIN 3.9 g/dL (3.5-5.0); ALT/SGPT 24 U/L (21-72); AST/SGOT 25 U/L (17-59); BLOOD UREA NITROGEN 21 mg/dL (9-20); CALCIUM 8.8 mg/dl (8.6-10.4); GFR AFRICAN-AMERICAN > 60; GFR NON-AFRICAN AMERICAN 57
--- NOTE | 2017-08-24 13:30 | CP.PCM.PCO ---
Physician Communication Note - Physician Communication Note Physician Communication Note: See above
--- NOTE | 2017-08-24 15:18 | CP.PCM.DIS ---
<JackieChristianon - Last Filed: 08/24/17 17:34> Provider - Provider Date of Admission: 08/20/17 04:00 Attending physician: Kaushik Diego MD Primary care physician: Non [facility] Provider Consults: ID:Dr. Downing Cardio: Dr. Stephen Podiatry: Dr. Rodgers Time Spent in preparation of Discharge (in minutes): 45 Hospital Course - Lab Results Lab Results: Micro Results 08/23/17 11:55 Foot - Right Gram Stain - Final 08/23/17 11:55 Foot - Right Wound Culture - Preliminary Gram Positive Cocci 08/23/17 14:41 Foot - Right Gram Stain - Final 08/23/17 14:41 Foot - Right Wound Culture - Preliminary Gram Positive Cocci 08/20/17 01:15 Blood Blood Culture - Preliminary NO GROWTH AFTER 3 DAYS 08/20/17 00:45 Blood Blood Culture - Preliminary NO GROWTH AFTER 3 DAYS 08/20/17 03:11 Foot - Right Gram Stain - Final 08/20/17 03:11 Foot - Right Wound Culture - Final Staphylococcus Aureus Most Recent Lab Values WBC 5.9 K/uL (4.8-10.8) 08/24/17 11:15 RBC 5.16 Mil/uL (4.40-5.90) 08/24/17 11:15 Hgb 15.1 g/dL (12.0-18.0) 08/24/17 11:15 Hct 44.2 % (35.0-51.0) 08/24/17 11:15 MCV 85.8 fL (80.0-94.0) 08/24/17 11:15 MCH 29.3 pg (27.0-31.0) 08/24/17 11:15 MCHC 34.1 g/dL (33.0-37.0) 08/24/17 11:15 RDW 13.3 % (11.5-14.5) 08/24/17 11:15 Plt Count 359 K/uL (130-400) 08/24/17 11:15 MPV 8.6 fL (7.2-11.7) 08/24/17 11:15 Neut % (Auto) 63.1 % (50.0-75.0) 08/24/17 11:15 Lymph % (Auto) 27.3 % (20.0-40.0) 08/24/17 11:15 [place] % (Auto) 6.9 % (0.0-10.0) 08/24/17 11:15 Eos % (Auto) 2.3 % (0.0-4.0) 08/24/17 11:15 Baso % (Auto) 0.4 % (0.0-2.0) 08/24/17 11:15 Neut # (Auto) 3.7 K/uL (1.8-7.0) 08/24/17 11:15 Lymph # (Auto) 1.6 K/uL (1.0-4.3) 08/24/17 11:15 [place] # (Auto) 0.4 K/uL (0.0-0.8) 08/24/17 11:15 Eos # (Auto) 0.1 K/uL (0.0-0.7) 08/24/17 11:15 Baso # (Auto) 0.0 K/uL (0.0-0.2) 08/24/17 11:15 ESR 21 mm/hr (0-15) H 08/21/17 06:39 PT 10.4 SECONDS (9.7-12.2) 08/21/17 06:39 INR 0.9 08/21/17 06:39 APTT 34 SECONDS (21-34) 08/20/17 07:54 pO2 18 mm/Hg (30-55) L 08/20/17 01:05 VBG pH 7.34 (7.32-7.43) 08/20/17 01:05 VBG pCO2 60 mmHg (40-60) 08/20/17 01:05 VBG HCO3 26.7 mmol/L 08/20/17 01:05 VBG Total CO2 34.2 mmol/L (22-28) H 08/20/17 01:05 VBG O2 Sat (Calc) 30.5 % (40-65) L 08/20/17 01:05 VBG Base Excess 4.8 mmol/L (0.0-2.0) H 08/20/17 01:05 VBG Potassium 4.0 mmol/L (3.6-5.2) 08/20/17 01:05 Sodium 135.0 mmol/l (132-148) 08/20/17 01:05 Chloride 97.0 mmol/L (98-107) L 08/20/17 01:05 Glucose 413 mg/dl (75-110) H* 08/20/17 01:05 Lactate 0.9 mmol/L (0.7-2.1) 08/20/17 01:05 Crit Value Called To Chanelle power/rn 08/20/17 01:05 Crit Value Called By Gaudencio orona/rt 08/20/17 01:05 Crit Value Read Back Y 08/20/17 01:05 Blood Gas Notified Time 115 08/20/17 01:05 Sodium 132 mmol/L (132-148) 08/24/17 11:15 Potassium 4.9 mmol/L (3.6-5.2) 08/24/17 11:15 Chloride 91 mmol/L (98-107) L 08/24/17 11:15 Carbon Dioxide 29 mmol/L (22-30) 08/24/17 11:15 Anion Gap 16 (10-20) 08/24/17 11:15 BUN 21 mg/dL (9-20) H 08/24/17 11:15 Creatinine 1.3 mg/dL (0.8-1.5) 08/24/17 11:15 Est GFR ( Amer) > 60 08/24/17 11:15 Est GFR (Non-Af Amer) 57 08/24/17 11:15 POC Glucose (mg/dL) 383 mg/dL (65-110) H 08/24/17 11:30 Random Glucose 401 mg/dL (75-110) H* D 08/24/17 11:15 Hemoglobin A1c 10.6 % (4.2-6.5) H 08/20/17 07:54 Serum Osmolality 311 mosm/kg (272-300) H 08/20/17 01:03 Calcium 8.8 mg/dl (8.6-10.4) 08/24/17 11:15 Phosphorus 3.4 mg/dL (2.5-4.5) 08/23/17 07:34 Magnesium 1.9 mg/dL (1.6-2.3) 08/23/17 07:34 Total Bilirubin 0.9 mg/dL (0.2-1.3) 08/24/17 11:15 AST 25 U/L (17-59) 08/24/17 11:15 ALT 24 U/L (21-72) 08/24/17 11:15 Alkaline Phosphatase 100 U/L (38-126) 08/24/17 11:15 C-React Prot High Sens 6.33 mg/L (1.00-3.00) H 08/22/17 08:38 Total Protein 7.5 g/dL (6.3-8.3) 08/24/17 11:15 Albumin 3.9 g/dL (3.5-5.0) 08/24/17 11:15 Globulin 3.6 gm/dL (2.2-3.9) 08/24/17 11:15 Albumin/Globulin Ratio 1.1 (1.0-2.1) 08/24/17 11:15 Triglycerides 97 mg/dL (0-149) 08/20/17 07:54 Cholesterol 153 mg/dL (0-199) 08/20/17 07:54 LDL Cholesterol Direct 70 mg/dL (0-129) 08/20/17 07:54 HDL Cholesterol 55 mg/dL (30-70) 08/20/17 07:54 Venous Blood Potassium 4.0 mmol/L (3.6-5.2) 08/20/17 01:05 Vancomycin Trough 24.6 ug/mL (5.0-10.0) H 08/24/17 01:50 Serum Ketones Negative (NEGATIVE) 08/20/17 01:03 - Hospital Course Hospital Course: Discharge Summary PMD:Denies Consults: Nephrology (Dr. Alvarado), Cardiology (Dr. Stephen) PRINCIPAL DISCHARGE DIAGNOSES: DM Gastritis PUD Osteomyelitis Balntitis penis Right hallux diabetic foot ulcer CC: Right hallux wound and drainage HISTORY OF PRESENT ILLNESS: Patient is a 57 year old male with past medical history of DM, gastritis, pud, b/l halluces osteomyelitis, who presents to the ED with complaints of right hallux wound and drainage that has been going on for approximately 3 weeks. Patient was evaluated in the ED on 07/31/17 for the same complaints and was discharge with instruction to keep the wound clean with peroxide & Neosporin with daily dressing changes. Upon discharge from the ED on 07/31/16, patient was given prescription for humalog 70/30 30 units SC BID and omeprazole 40mg PO daily. Patient states that his right hallux wound has worsened with mild clear malodorous discharge. Patient denies fever, chills, nausea, vomiting, headache, chest pain, palpitation, SOB, abdominal pain, recent travel or sickness, polydispia, polyphagia, polyuria and pain. Patient does admits to right hallux swelling, numbness and tingling, mild decrease of sensation and clear malodorous discharge. PMD: None for the past 6 months- 1 year. Patient was given an appointment for at the [facility] but did not make it to the appointment PMHx: DM, gastritis, pud, b/l halluces osteomyelitis, PSHx: Right 2nd toe amputations (By Dr. Little), Appendectomy, B/L halluces infected bone removal FHx: Father and Sister ( DM); Maternal family: HTN and maternal grandmother: CVA Medications: humalog 70/30 30 units SC BID and omeprazole 40mg PO daily as prescribed by the ED Allergies: NKDA Social Hx : Lives with fiance, unemployed. 30 years tobacco use ( 1PPD, quit smoking 6 years ago), 2 beers and 2 shot of whiskey daily, 15 yrs use of marijuan and cocaine intranasal SUMMARY OF COURSE: Nikolas Dunaway is a 57 year old male who was admitted to [facility] from 08/20/17-09/03/17. While admitted the patient had blood work and imaging done. While admitted the patient was seen by Type 2 Diabetes, gastritis, b/l halluces, balantitis penis, and osteomyelitis. The patient had was seen by Infectious disease who started him on a antibiotics. Patient was seen by Cardiology who cleared him before getting an amputation surgery. The patient had a stress test done that was negative and the patient was able to proceed with the amputation. Patient post amputation was tolerating diet and passing his bowels with no issue. The patient was discharged with the instructions included below. Imaging: Foot Xray (08/20/17): no definite radiographic evidence of acute osteomyelitis MRI (08/20/17): prominent soft tissue ulceration and defect noted at the level of the 1st distal phalanx. Cortical irregularity with signal changes noted within the adjacent marrow of the 1st distal phalanx with decreased T1 signal and increased STIR signal concerning for acute osteomyelitis. Mild signal changed noted at the articular surface at he head of the 1st proximal phalax demonstrating some patchy decreased T1 signal with increased STIR signal. Osteochondral change however developing early acute osteomyelitis at this level cannot entirely be excluded. Clinical correlation. Mild hallux valgus deformity. Resection of the 2nd digit to the metatarsal head. Repeat foot xray: s/p amputation 1st digit and mid 1st proximal phalanx and 2nd MTP at articulation Aterial lower extremity: right was negative for arterial insufficiency, left was non-diagnositc due to calcifications Echo: Showed hypertensive disease, EF:60-65%) Chest xray: negative (See full reports). Patient was cleared for discharge by Podiatry Dr. Rodgers: I spoke with Podiatry Resident caring for him. F/U with Dr. Rodgers at Podiatry Clinic on 09/03/17 at 12 :[address] Downing and ok with Ciprofloxacin 500 mg PO 2x/day for 10 more days. Patient states that he has enough of his insulin at home to last him 2 weeks. The following instructions were explained to patient and will need to be included in discharge instructions so that he may have a copy of them: 1). You have an appointment with the Podiatry Clinic Dr. Rodgers at [facility] on Wednesday09/03/17 at 12:30. This clinic is located at [facility] Floor [address], [address] in [place], [place]. 2). You do not have a Primary Care Physician therefore schedule appointment with the [facility] by calling [phone]. Please let them know that you already have an appointment with Print Shop Assistant Dr. Rodgers on 09/03/17 at 12:30 PM and see if the family doctors can see you on this day as well as you will already be there. You must obtain an appointment with the family doctors at this clinic before you run out of your insulin. They will be your primary care physicians to help coordinate your care and provide you with prescriptions that need to be filled at your pharmacy. 3). You stated that you had at least 2 week supply of your Humalog (75/25) so please continue to take 30 units with breakfast and 30 units with dinner as you have been doing. 4). Please have the following prescriptions filled at your pharmacy and use as directed. Ciprofloxacin 500 mg, 1 tablet by mouth 2x/day (breakfast and dinner) for 10 days, Dispense #20, NO refills Losartan 50 mg, 1 tablet by mouth 2x/day (breakfast and dinner), Dispense #30, NO refills Simvastatin 10 mg, 1 tablet by mouth 1x/day (dinner), Dispense #30, NO refills Clotrimazole Topical 1%, apply to tip of penis 2x/day, Dispense 15 gram tube, NO refills 5). Please ask your pharmacist which PROBIOTIC that he or she recommends and take everyday with lunch for the next 40 days. This will help to reduce the chances of diarrhea from the antibiotic ciprofloxacin. 6). Please do not get the right foot wet. 7). Please stay well hydrated with water. 8). Please be careful going up and down the stairs and NO heavy lifting of any kind until after you have completed your Ciprofloxacin. 9). Please take care and be well. 10. Return to Emergency department for any new or worsening symptoms. Discharge Exam - Head Exam Head Exam: ATRAUMATIC, NORMAL INSPECTION, NORMOCEPHALIC Discharge Plan - Discharge Medications Prescriptions: Ciprofloxacin [Cipro] 500 mg PO BID #20 tab Clotrimazole 1% Cream [Lotrimin 1% CREAM] 15 applic EXT BID #1 tube Losartan [Cozaar] 50 mg PO BID #30 tab Simvastatin 10 mg PO DAILY #30 tablet - Follow Up Plan Condition: GOOD Disposition: HOME/ ROUTINE Instructions: Ciprofloxacin (By mouth), Betamethasone/Clotrimazole (On the skin ), Simvastatin (By mouth), Losartan (By mouth), Diabetic Foot Care (DC), Diabetes Mellitus Type 2 in Adults (GEN), Diabetic Foot Ulcers (DC) Additional Instructions: Patient was cleared for discharge by Podiatry Dr. Rodgers: I spoke with Podiatry Resident caring for him. F/U with Dr. Rodgers at Podiatry Clinic on 09/03/17 at 12 :[address] Downing and salma with Ciprofloxacin 500 mg PO 2x/day for 10 more days. Patient states that he has enough of his insulin at home to last him 2 weeks. The following instructions were explained to patient and will need to be included in discharge instructions so that he may have a copy of them: 1). You have an appointment with the Podiatry Clinic Dr. Rodgers at [facility] on Wednesday09/03/17 at 12:30. This clinic is located at [facility] [address] in [place], [place]. 2). You do not have a Primary Care Physician therefore schedule appointment with the [facility] by calling [phone]. Please let them know that you already have an appointment with Print Shop Assistant Dr. Rodgers on 09/03/17 at 12:30 PM and see if the family doctors can see you on this day as well as you will already be there. You must obtain an appointment with the family doctors at this clinic before you run out of your insulin. They will be your primary care physicians to help coordinate your care and provide you with prescriptions that need to be filled at your pharmacy. 3). You stated that you had at least 2 week supply of your Humalog (75/25) so please continue to take 30 units with breakfast and 30 units with dinner as you have been doing. 4). Please have the following prescriptions filled at your pharmacy and use as directed. Ciprofloxacin 500 mg, 1 tablet by mouth 2x/day (breakfast and dinner) for 10 days, Dispense #20, NO refills Losartan 50 mg, 1 tablet by mouth 2x/day (breakfast and dinner), Dispense #30, NO refills Simvastatin 10 mg, 1 tablet by mouth 1x/day (dinner), Dispense #30, NO refills Clotrimazole Topical 1%, apply to tip of penis 2x/day, Dispense 15 gram tube, NO refills 5). Please ask your pharmacist which PROBIOTIC that he or she recommends and take everyday with lunch for the next 40 days. This will help to reduce the chances of diarrhea from the antibiotic ciprofloxacin. 6). Please do not get the right foot wet. 7). Please stay well hydrated with water. 8). Please be careful going up and down the stairs and NO heavy lifting of any kind until after you have completed your Ciprofloxacin. 9). Please take care and be well. 10. Return to Emergency department for any new or worsening symptoms. Referrals: Non [facility] Provider, [Primary Care Provider] - Chavez Downing MD [Staff Provider] - Val Rodgers DPM [Staff Provider] - <Deandre Knight - Last Filed: 08/24/17 19:29> Provider - Provider Date of Admission: 08/20/17 04:00 Attending physician: Deandre Knight MD Primary care physician: Non [facility] Provider Hospital Course - Lab Results Lab Results: Micro Results 08/20/17 01:15 Blood Blood Culture - Preliminary NO GROWTH AFTER 4 DAYS 08/20/17 00:45 Blood Blood Culture - Preliminary NO GROWTH AFTER 4 DAYS 08/23/17 11:55 Foot - Right Gram Stain - Final 08/23/17 11:55 Foot - Right Wound Culture - Preliminary Gram Positive Cocci 08/23/17 14:41 Foot - Right Gram Stain - Final 08/23/17 14:41 Foot - Right Wound Culture - Preliminary Gram Positive Cocci 08/20/17 03:11 Foot - Right Gram Stain - Final 08/20/17 03:11 Foot - Right Wound Culture - Final Staphylococcus Aureus Most Recent Lab Values WBC 5.9 K/uL (4.8-10.8) 08/24/17 11:15 RBC 5.16 Mil/uL (4.40-5.90) 08/24/17 11:15 Hgb 15.1 g/dL (12.0-18.0) 08/24/17 11:15 Hct 44.2 % (35.0-51.0) 08/24/17 11:15 MCV 85.8 fL (80.0-94.0) 08/24/17 11:15 MCH 29.3 pg (27.0-31.0) 08/24/17 11:15 MCHC 34.1 g/dL (33.0-37.0) 08/24/17 11:15 RDW 13.3 % (11.5-14.5) 08/24/17 11:15 Plt Count 359 K/uL (130-400) 08/24/17 11:15 MPV 8.6 fL (7.2-11.7) 08/24/17 11:15 Neut % (Auto) 63.1 % (50.0-75.0) 08/24/17 11:15 Lymph % (Auto) 27.3 % (20.0-40.0) 08/24/17 11:15 [place] % (Auto) 6.9 % (0.0-10.0) 08/24/17 11:15 Eos % (Auto) 2.3 % (0.0-4.0) 08/24/17 11:15 Baso % (Auto) 0.4 % (0.0-2.0) 08/24/17 11:15 Neut # (Auto) 3.7 K/uL (1.8-7.0) 08/24/17 11:15 Lymph # (Auto) 1.6 K/uL (1.0-4.3) 08/24/17 11:15 [place] # (Auto) 0.4 K/uL (0.0-0.8) 08/24/17 11:15 Eos # (Auto) 0.1 K/uL (0.0-0.7) 08/24/17 11:15 Baso # (Auto) 0.0 K/uL (0.0-0.2) 08/24/17 11:15 ESR 21 mm/hr (0-15) H 08/21/17 06:39 PT 10.4 SECONDS (9.7-12.2) 08/21/17 06:39 INR 0.9 08/21/17 06:39 APTT 34 SECONDS (21-34) 08/20/17 07:54 pO2 18 mm/Hg (30-55) L 08/20/17 01:05 VBG pH 7.34 (7.32-7.43) 08/20/17 01:05 VBG pCO2 60 mmHg (40-60) 08/20/17 01:05 VBG HCO3 26.7 mmol/L 08/20/17 01:05 VBG Total CO2 34.2 mmol/L (22-28) H 08/20/17 01:05 VBG O2 Sat (Calc) 30.5 % (40-65) L 08/20/17 01:05 VBG Base Excess 4.8 mmol/L (0.0-2.0) H 08/20/17 01:05 VBG Potassium 4.0 mmol/L (3.6-5.2) 08/20/17 01:05 Sodium 135.0 mmol/l (132-148) 08/20/17 01:05 Chloride 97.0 mmol/L (98-107) L 08/20/17 01:05 Glucose 413 mg/dl (75-110) H* 08/20/17 01:05 Lactate 0.9 mmol/L (0.7-2.1) 08/20/17 01:05 Crit Value Called To Chanelle power/rn 08/20/17 01:05 Crit Value Called By Gaudencio orona/rt 08/20/17 01:05 Crit Value Read Back Y 08/20/17 01:05 Blood Gas Notified Time 115 08/20/17 01:05 Sodium 132 mmol/L (132-148) 08/24/17 11:15 Potassium 4.9 mmol/L (3.6-5.2) 08/24/17 11:15 Chloride 91 mmol/L (98-107) L 08/24/17 11:15 Carbon Dioxide 29 mmol/L (22-30) 08/24/17 11:15 Anion Gap 16 (10-20) 08/24/17 11:15 BUN 21 mg/dL (9-20) H 08/24/17 11:15 Creatinine 1.3 mg/dL (0.8-1.5) 08/24/17 11:15 Est GFR ( Amer) > 60 08/24/17 11:15 Est GFR (Non-Af Amer) 57 08/24/17 11:15 POC Glucose (mg/dL) 151 mg/dL (65-110) H 08/24/17 16:08 Random Glucose 401 mg/dL (75-110) H* D 08/24/17 11:15 Hemoglobin A1c 10.6 % (4.2-6.5) H 08/20/17 07:54 Serum Osmolality 311 mosm/kg (272-300) H 08/20/17 01:03 Calcium 8.8 mg/dl (8.6-10.4) 08/24/17 11:15 Phosphorus 3.4 mg/dL (2.5-4.5) 08/23/17 07:34 Magnesium 1.9 mg/dL (1.6-2.3) 08/23/17 07:34 Total Bilirubin 0.9 mg/dL (0.2-1.3) 08/24/17 11:15 AST 25 U/L (17-59) 08/24/17 11:15 ALT 24 U/L (21-72) 08/24/17 11:15 Alkaline Phosphatase 100 U/L (38-126) 08/24/17 11:15 C-React Prot High Sens 6.33 mg/L (1.00-3.00) H 08/22/17 08:38 Total Protein 7.5 g/dL (6.3-8.3) 08/24/17 11:15 Albumin 3.9 g/dL (3.5-5.0) 08/24/17 11:15 Globulin 3.6 gm/dL (2.2-3.9) 08/24/17 11:15 Albumin/Globulin Ratio 1.1 (1.0-2.1) 08/24/17 11:15 Triglycerides 97 mg/dL (0-149) 08/20/17 07:54 Cholesterol 153 mg/dL (0-199) 08/20/17 07:54 LDL Cholesterol Direct 70 mg/dL (0-129) 08/20/17 07:54 HDL Cholesterol 55 mg/dL (30-70) 08/20/17 07:54 Venous Blood Potassium 4.0 mmol/L (3.6-5.2) 08/20/17 01:05 Vancomycin Trough 24.6 ug/mL (5.0-10.0) H 08/24/17 01:50 Serum Ketones Negative (NEGATIVE) 08/20/17 01:03 Attending/Attestation - Attestation I have personally seen and examined this patient.: Yes I have fully participated in the care of the patient.: Yes I have reviewed all pertinent clinical information, including history, physical exam and plan: Yes
--- NOTE | 2017-08-24 17:19 | CP.PCM.PN ---
Subjective - Date & Time of Evaluation Date of Evaluation: 08/24/17 Time of Evaluation: 12:00 - Subjective Subjective: 57 year old male is seen at bedside concerning status POD#1 s/p right hallux amputation. Pt is feeling well, has no pain to the surgical area, and is in good spirits. Is able to walk and transition to rest room with no reported difficultly. Denies and acute overnight events. Denies overnight f/c/cp/sob/n/v/ dizzyness. Objective - Vital Signs/Intake and Output Vital Signs (last 24 hours): Temp Pulse Resp BP Pulse Ox 97.7 F 69 20 116/77 96 08/24/17 07:45 08/24/17 07:45 08/24/17 07:45 08/24/17 07:45 08/24/17 07:45 Intake and Output: 08/24/17 08/24/17 06:59 18:59 Output Total 450 Balance -450 - Medications Medications: Current Medications Acetaminophen (Tylenol 325mg Tab) 650 mg PO Q6 PRN PRN Reason: Pain, Mild (1-3) Clotrimazole (Lotrimin 1%) 1 gm TOP BID [facility] Stop: 08/29/17 10:31 Last Admin: 08/24/17 10:33 Dose: 1 applic Enoxaparin Sodium (Lovenox) 40 mg SC DAILY [facility] Last Admin: 08/24/17 10:28 Dose: Not Given Vancomycin HCl 1.5 gm/ Sodium (Chloride) 500 mls @ 200 mls/hr IVPB Q12H [facility] Insulin Aspart (Novolog) 0 unit SC ACHS [facility] PRN Reason: Protocol Last Admin: 08/24/17 13:01 Dose: 8 unit Insulin Human Isoph/Insulin Regular (Novolin 70/30 (70/30 Units/Ml) 10 Ml) 20 units SC Q12 [facility] Last Admin: 08/24/17 10:26 Dose: 20 units Losartan Potassium (Cozaar) 50 mg PO BID [facility] Last Admin: 08/24/17 10:26 Dose: 50 mg Pantoprazole Sodium (Protonix Ec Tab) 40 mg PO DAILY [facility] Last Admin: 08/24/17 10:25 Dose: 40 mg Saccharomyces Boulardii (Florastor) 250 mg PO BID [facility] Last Admin: 08/24/17 10:26 Dose: 250 mg Tramadol HCl (Ultram) 25 mg PO TID KEVYN Last Admin: 08/24/17 14:15 Dose: Not Given - Labs Labs: 08/24/17 11:15 08/24/17 11:15 PT 10.4 SECONDS (9.7-12.2) 08/21/17 06:39 INR 0.9 08/21/17 06:39 APTT 34 SECONDS (21-34) 08/20/17 07:54 - Constitutional Appears: Well, Non-toxic, No Acute Distress - Extremities Exam Additional comments: Right LE focused. Dressing clean, dry, and intact absent strikethough. : VASC- DP/PT pulses are palpable (graded 2/4), skin temp runs warm to warm, proximal to distal within acceptable limits. No noted edema. NEURO- gross and protective pedal sensation is diminished DERM- Right partial hallux amputation surgical site noted. Amputated digit has all sutures intact, absence of ischemic changes, site is warm to touch, illicits no tenderness. Surgical site well coapted. No tension across suture sites. - Neurological Exam Neurological Exam: Alert, Awake, Oriented x3 - Psychiatric Exam Psychiatric exam: Normal Affect, Normal Mood Assessment and Plan - Assessment and Plan (Free Text) Assessment: 57 year old male POD#1 s/p right partial hallux amputation secondary to OM. Plan: Pt evaluated and treated. Discussed in detail with attending, Dr. Rodgers. Chart, labs, and vitals reviewed. Surgical site is stable ,absent signs of dehiscence and infection. Per ID recommendations pt can be discharged with Oral abx. Pt weight bearing status is full weight-bearing to right heel as tolerated. Pt is stable from podiatry standpoint for discharge home. Pt will follow up with Dr. Rodgers in [facility] on Wednesday after discharge.
--- NOTE | 2017-08-25 17:16 | CARD ---
APPROVED REPORT Protocol: LEXISCAN Test Type: LEXISCAN STRESS Test Indications: PRE OP Target HR: 164 bpm Resting ECG: normal Resting Heart Rate: 67 bpm Resting Blood Pressure: 132/80mmHg submaximum (85%): 139 bpm TEST SUMMARY PREINFSNHYPERV.44:[id number]/80.0. INFUSIONDOSE 100:[id number]/80.0. [id number]:090.00.01.086/.0. PROCEDURE Pharmacologic stress testing was performed using 0.4mg per 5ml of regadenoson given intravenously over 7-10 seconds. POST EXERCISE Reason for Termination: Protocol Completed Target HR: No Max HR: 72 bpm 53% of Maximum Predicted HR: 164 bpm Exercise duration: 00:30 min:sec, 0 Stage Exercise capacity: 1.0METs Max Blood Pressure: 132/80mmHg Blood Pressure response to exercise: N/A Heart Rate response to exercise: N/A Chest Pain: No, none Angina index: 0 Arrhythmia: No, none ST Change: No, none Deviation: 0 mm EXAM: Myocardial Perfusion STRESS/REST Imaging Protocol The imaging protocol used to acquire images was Stress Tc-99m/rest Tc-99m 1 day Rest Spect myocardial perfusion imaging was performed in supine position 45 minutes following the injection of 32.7 mCi of Tc-99 Myoview. Gated Stress Spect was performed 45 minutes after intravenous 12.7 mCi Tc-99 Myoview injection. The images were gated to evaluate regional wall motion and calculate ventricular ejection fraction.Images were reconstructed using backfilter projection method in short horizontal and verticle long axis. Spect slices were generated. RESTING DATA EDV77.82twCE6.40L/min1/3 Pk. Filling Rate1.51EDV/sec LV Time to Pk. Filling Pacu011.20msec ESV24.00mlMyocardial Ryto864.00gLV Time to Pk. Ejection Gpjx617.57msec Pk. Fill Rate3.29EDV/secAv. Heart Rate64.00bpm EF69.00%Pk. Emptying Rate3.92ESV/sec STRESS DATA EDV86.58zlJT0.50L/min ESV33.00mlMyocardial Gcge674.00g Pk. Fill Rate1.59EDV/sec EF62.00%Pk. Emptying Rate4.04ESV/sec 1/3 Pk. Filling Rate0.70EDV/secRegional WT score at stress:3.00 LV Time to Pk. Filling Rate:173.72msecRegional WM score at stress:0.00 LV Time to Pk. Ejection Rate:274.42msecSummed WT score at stress:22.00 Av. Heart Rate66.00bpmSummed WM score at stress:2.00 Study quality was good. Left Ventricular size was Normal at Rest and Stress. LV Perfusion 1 Perfusion Defect Location: mid anterolateral Perfusion Defect Size: Small (1-2 segments) Perfusion Defect Severity: Mild Type of Perfusion Defect: Partially Reversible TCD/TID: No LV Perf. Quant 17 Seg. SSS1.00 17 Seg. SRS0.00 17 Seg. SDS1.00 Stress Defect Extent (% LAD)0.00Rest Defect Extent (% LAD)0.00Rev. Defect Extent (% LAD)0.00 Stress Defect Extent (% LCX)11.30Rest Defect Extent (% LCX)0.00Rev. Defect Extent (% LCX)8.80 Stress Defect Extent (% RCA)0.00Rest Defect Extent (% RCA)0.00Rev. Defect Extent (% RCA)0.00 Stress Defect Extent (% LIZET)2.00Rest Defect Extent (% LIZET)0.00Rev. Defect Extent (% LIZET)1.50 Other Information Quality:Good Overall Exercise Capacity: n/a IMPRESSION Normal Myocardial Perfusion exercise stress study Metabolism/Perfusion Reversible/Irreversible: - Small sized mild intensity partially reverisble anterolateral defect Conclusion 1. - Low probability for significant obstructive atherosclerotic coronary artery disease 2. - Normal left ventricular ejection fraction
--- NOTE | 2017-08-25 22:33 | CARD ---
APPROVED REPORT EKG Measurement Heart Xerd42VBHC MN 170P60 [id number] <Conclusion> Normal sinus rhythm Normal ECG
--- NOTE | 2017-08-26 06:06 | OP ---
PROCEDURE DATE: 08/23/2017 PRIMARY SURGEON: Val Rodgers DPM EMBEDDED PROCESSOR: Dr. Carina Bhatia, PGY2 ANESTHESIOLOGIST: None. TYPE OF ANESTHESIA: Local anesthetic. PREOPERATIVE DIAGNOSIS: Right hallux osteomyelitis. POSTOPERATIVE DIAGNOSIS: Right hallux osteomyelitis. PROCEDURE PERFORMED: Right foot distal hallux partial amputation with lavage. SPECIMENS: 1. Right foot hallux pre-lavage wound culture. 2. Right foot hallux post-lavage wound culture. 3. Right hallux bone and soft tissue. INDICATIONS: The patient is a 57-year-old male with above stated diagnosis. The patient signed the surgical consent after careful explanation of risks, benefits, complications and potential alternatives for postsurgical procedure. No guarantees were either given or implied. All patient's questions were answered to his satisfaction. PREPARATION: The patient's n.p.o. status was confirmed prior to bringing the patient to the operating room. The patient was brought into the operating room and placed on the operating room table in supine position. The patient then received 20 mL of a 1:1 mixture of 2% lidocaine plain and 2.5% Marcaine plain in a local block type fashion to the right foot. Once local anesthesia was confirmed to have been achieved, the patient's right foot was then prepped and draped in the usual sterile manner,and the procedure began. PROCEDURE: Right hallux partial amputation: Attention was then directed to the dorsal aspect of the right great toe where an approximately 3 cm fish mouth type incision was made transverse overlying the distal hallux interphalangeal joint using #15 blade, incsion designed to produce a longer plantar flap, to accomodate closure. This incision was made full thickness using #15 blade. All bleeders were cauterized and ligated as needed. Distal hallux was disarticulated from proximal hallux at level of interphalangeal joint and passed from the operative field to be sent for pathology. At this time, proximal phalanx post disarticulation was evaluated and inferomedial cortical weakening and pinpoint of breakdown was appreciated. At this time, wound culture was taken of margins. Further evaluation of soft tissue on wound was appreciated and no vessel compromise was appreciated. No underlying necrosis or abscess was visualized. At this time, oscillating saw was introduced to the operating field and distal one-third of proximal hallux was resected and passed from the operative field. At this time, Bacitracin-infused pulse lavage system was introduced to the surgical field and used to pulse lavage open surgical site with copious amount of Bacitracin-infused sterile saline. Once pulse lavage was completed, second specimen wound culture was taken of potential clean margins and sent for microbiological evaluation. At this time, extensor and flexor tendons were reapproximated using 3-0 Vicryl. Full-thickness skin was reapproximated with majority of plantar skin flap using 4-0 nylon. Excess redundant skin margins were excised and passed from the operative field. Surgical site well coapted, closed and cleansed with sterile saline. Surgical site dressed with betadine-soaked Adaptic, 4x4 gauze, Kerlix, Vero, and ABD. The patient received 10 mL of 0.5% Marcaine plain in a local block type fashion to control postoperative pain. POSTOPERATIVE CONDITION: The patient tolerated the anesthesia and procedure well and was escorted to the recovery room with vital signs stable and neurovascular status intact. The patient had no complaints or complications. The patient will follow up with Dr. Rodgers while in-house. Carina Bhatia DPM Val Rodgers DPM [facility]
== END 2017-08-24 17:05 | disposition home or self-care (01) | DRG 617 ==
LOC: C.ER 00:22 → SUPCPDRO 00:22 → C.5S 04:00
PROVIDERS: ADMIT Family Medicine; ATTEND Family Medicine
PROC: 0Y6P0Z3 Detachment at Right 1st Toe, Low, Open Approach (ICD-10-PCS; principal; 2017-08-23 13:00)
DX: E11.621 Type 2 diabetes mellitus with foot ulcer (principal); M86.171 Other acute osteomyelitis, right ankle and foot; E11.69 Type 2 diabetes mellitus with other specified complication; E11.40 Type 2 diabetes mellitus with diabetic neuropathy, unspecified; E11.65 Type 2 diabetes mellitus with hyperglycemia; I08.1 Rheumatic disorders of both mitral and tricuspid valves; I10 Essential (primary) hypertension; I25.10 Atherosclerotic heart disease of native coronary artery without angina pectoris; K29.70 Gastritis, unspecified, without bleeding; L97.519 Non-pressure chronic ulcer of other part of right foot with unspecified severity; N48.1 Balanitis; M20.10 Hallux valgus (acquired), unspecified foot; M21.00 Valgus deformity, not elsewhere classified, unspecified site; Z89.421 Acquired absence of other right toe(s); Z79.4 Long term (current) use of insulin; Z79.899 Other long term (current) drug therapy; Z87.11 Personal history of peptic ulcer disease; Z87.891 Personal history of nicotine dependence; Z90.49 Acquired absence of other specified parts of digestive tract

== ENCOUNTER 2017-08-31 19:14 | Emergency (ER) | payer SELFPAY ==
[2017-08-31 19:31] VITALS: RESP 18; TEMP 97.6; O2SAT 100
[2017-08-31 21:05] LABS: BASO # 0.1 K/uL (0.0-0.2); BASO % 1.2 % (0.0-2.0); EOS # 0.2 K/uL (0.0-0.7); LYMPH # 2.2 K/uL (1.0-4.3); LYMPH % 38.6 % (20.0-40.0); MEAN CELL VOLUME 85.5 fL (80.0-94.0); MEAN CORPUSCULAR HEMOGLOBIN 28.9 pg (27.0-31.0); MEAN CORPUSCULAR HGB CONC 33.8 g/dL (33.0-37.0); MEAN PLATELET VOLUME 7.9 fL (7.2-11.7); MONO # 0.4 K/uL (0.0-0.8); MONO % 6.4 % (0.0-10.0); NEUT # 2.9 K/uL (1.8-7.0); NEUT % 50.8 % (50.0-75.0); NRBC % 0.1 % (0.0-2.0); RBC 4.38 Mil/uL (4.40-5.90); RED CELL DISTRIBUTION WIDTH 13.2 % (11.5-14.5); WHITE BLOOD COUNT 5.7 K/uL (4.8-10.8)
[2017-08-31 21:10] LABS: HEMOGLOBIN 12.7 g/dL (12.0-18.0)
[2017-08-31 21:17] LABS: ALB/GLOB RATIO 1.2 (1.0-2.1); ALBUMIN 3.8 g/dL (3.5-5.0); ALT/SGPT 19 U/L (21-72); AST/SGOT 29 U/L (17-59); BLOOD UREA NITROGEN 20 mg/dL (9-20); CALCIUM 8.9 mg/dl (8.6-10.4); GFR AFRICAN-AMERICAN > 60; GFR NON-AFRICAN AMERICAN > 60
[2017-08-31 22:01] LABS: SQUAMOUS EPITHIAL 1 /hpf (0-5); URINE BILIRUBIN NEGATIVE (NEGATIVE); URINE BLOOD NEGATIVE (NEGATIVE); URINE CLARITY Clear (Clear); URINE COLOR Yellow (YELLOW); URINE GLUCOSE (UA) NORMAL (Normal); URINE LEUKOCYTE ESTERASE 2+ Leu/uL (Negative); URINE NITRATE NEGATIVE (NEGATIVE); URINE PROTEIN NEGATIVE (NEGATIVE); URINE UROBILINOGEN NORMAL mg/dL (0.2-1.0)
--- NOTE | 2017-08-31 22:28 | C.PDOC ---
Time Seen by Provider: 08/31/17 19:45 Chief Complaint (Nursing): Abnormal Skin Integrity History Per: Patient Onset/Duration Of Symptoms: Days Current Symptoms Are (Timing): Still Present Location Of Injury: Anterior: Perineum (Penis) Quality Of Symptoms: Painful, Itching, Swollen Severity: Moderate Additional History Per: Prior Records Past Medical History Reviewed: Historical Data, Nursing Documentation, Vital Signs Vital Signs: Last Vital Signs Temp 97.6 F 08/31/17 19:25 Pulse 83 08/31/17 19:25 Resp 18 08/31/17 19:25 BP 143/88 08/31/17 19:25 Pulse Ox 100 08/31/17 19:25 - Medical History PMH: Diabetes, Gastritis, Gastrointestinal Ulcer Surgical History: Appendectomy Other Surgeries: Right toe amputation. - [facility] Procedures DETACHMENT AT RIGHT 1ST TOE, LOW, OPEN APPROACH (08/20/17) Family History: States: Unknown Family Hx - Social History Hx Alcohol Use: Yes (socially) Hx Substance Use: No - Immunization History Hx Tetanus Toxoid Vaccination: Yes Hx Influenza Vaccination: No Hx Pneumococcal Vaccination: No Review Of Systems Except As Marked, All Systems Reviewed And Found Negative. Constitutional: Negative for: Fever, Chills, Weakness Cardiovascular: Negative for: Chest Pain Respiratory: Negative for: Shortness of Breath Gastrointestinal: Negative for: Vomiting, Abdominal Pain Genitourinary: Positive for: Rash, Penile Pain. Negative for: Scrotal Pain Musculoskeletal: Negative for: Neck Pain, Back Pain Neurological: Negative for: Weakness, Numbness Physical Exam - Physical Exam Appears: Non-toxic, No Acute Distress Skin: Warm, Dry Head: Atraumatic Eye(s): bilateral: PERRL, EOMI Neck: Normal ROM, Supple Cardiovascular: Rhythm Regular Respiratory: Normal Breath Sounds, No Accessory Muscle Use Gastrointestinal/Abdominal: Soft, No Tenderness Back: No CVA Tenderness Male Genital: No Testicular Tenderness, No Testicular Swelling, No Circumcised, Other (Ulcerations on foreskin and prepuce) Extremity: Normal ROM Neurological/Psych: Oriented x3, Normal Motor, Normal Sensation ED Course And Treatment - Laboratory Results Result Diagrams: 08/31/17 20:56 08/31/17 20:56 O2 Sat by Pulse Oximetry: 100 Pulse Ox Interpretation: Normal Medical Decision Making Medical Decision Making: Will treat balanitis with Diflucan and antibiotics. Pt is also requesting refill for his Insulin. Disposition Counseled Patient/Family Regarding: Studies Performed, Diagnosis, Need For Followup, Rx Given - Disposition Referrals: [facility] [Outside] Disposition: HOME/ ROUTINE Disposition Time: 22:31 Condition: IMPROVED Additional Instructions: Follow up in the clinic for further evaluation and treatment. Return to the ER if you develop fever, trouble urinating, abdominal pain, worsening of symptoms or if you have any other concerns. Prescriptions: Insulin NPH Hum/Reg Insulin Hm [Humulin 70/30 Kwikpen] 30 unit SQ Q12 #1 insuln.pen Metronidazole [Flagyl] 500 mg PO BID #14 tab Instructions: Khadratis (ED) Forms: General Discharge Instructions - Clinical Impression Clinical Impression: Baljotis, Diabetes mellitus
[2017-08-31 22:48] VITALS: BP 162/97; PULSE 74
== END 2017-08-31 22:48 | disposition home or self-care (01) ==
LOC: C.ER 19:14
DX: N48.1 Balanitis (principal); E11.9 Type 2 diabetes mellitus without complications

== ENCOUNTER 2017-10-26 08:09 | Emergency (ER) | payer OTHER ==
[2017-10-26 08:13] VITALS: RESP 18; BMI 23.3
--- NOTE | 2017-10-26 08:57 | C.PDOC ---
History Of Present Illness 57yo male with history of diabetes, amputation of right 2nd toe, presents to ED for evaluation of a red blister on his right 3rd toe. Patient states he was at the podiatry clinic yesterday for a "blister" on his right 5th toe which was drained. Patient states he was instructed to get a right foot XR and has a follow up scheduled on 11/01/17. Patient denies any trauma or injury to his foot. He has no other medical complaints. Time Seen by Provider: 10/26/17 08:26 Chief Complaint (Nursing): Abnormal Skin Integrity History Per: Patient History/Exam Limitations: no limitations Onset/Duration Of Symptoms: Days Current Symptoms Are (Timing): Still Present Quality Of Symptoms: Swollen, Draining Additional History Per: Patient Past Medical History Reviewed: Historical Data, Nursing Documentation, Vital Signs Vital Signs: Last Vital Signs Temp 97.4 F L 10/26/17 08:13 Pulse 84 10/26/17 08:13 Resp 18 10/26/17 08:13 BP 136/86 10/26/17 08:13 Pulse Ox 100 10/26/17 08:57 - Medical History PMH: Diabetes, Gastritis, Gastrointestinal Ulcer, HTN Denies: Chronic Kidney Disease Surgical History: Appendectomy Other Surgeries: right 2nd toe amputation - [facility] Procedures DETACHMENT AT RIGHT 1ST TOE, LOW, OPEN APPROACH (08/20/17) Family History: States: Unknown Family Hx - Social History Hx Alcohol Use: No (socially) Hx Substance Use: No - Immunization History Hx Tetanus Toxoid Vaccination: Yes Hx Influenza Vaccination: No Hx Pneumococcal Vaccination: No Review Of Systems Except As Marked, All Systems Reviewed And Found Negative. Constitutional: Negative for: Fever Cardiovascular: Negative for: Chest Pain Physical Exam - Physical Exam Additional Physical Exam Comments: Constitutional: No acute distress. Head: Normocephalic. Atraumatic. Eyes: PERRL. Neck: Supple. Musculoskeletal: No tenderness or swelling of extremities. Right foot with 2nd toe amputation. Right 3rd toe with medial fluid filled blister, serosanguinous appearing. Full range of motion of all digits on right foot. Skin: No rash. Neurologic: Alert, no focal deficit. ED Course And Treatment O2 Sat by Pulse Oximetry: 100 (RA) Pulse Ox Interpretation: Normal Medical Decision Making Medical Decision Making: Impression: Blister on right 3rd toe Plan: -- XR Right foot Podiatry consulted, drained, no pus, dressed with betadine, Dr. Rodgers recommends keep follow up in clinic on Wednesday. XR reviewed. Disposition - Disposition Disposition: HOME/ ROUTINE Disposition Time: 10:27 Condition: STABLE Instructions: Foot Care for Diabetics Forms: [facility] (Swedish) - Clinical Impression Clinical Impression: Blister - Scribe Statement The provider has reviewed the documentation as recorded by the Scribe (Shirley Garrett) Provider Attestation: All medical record entries made by the Scribe were at my direction and personally dictated by me. I have reviewed the chart and agree that the record accurately reflects my personal performance of the history, physical exam, medical decision making, and the department course for this patient. I have also personally directed, reviewed, and agree with the discharge instructions and disposition.
--- NOTE | 2017-10-26 09:17 | CP.PCM.CON ---
History of Present Illness - History of Present Illness History of Present Illness: Podiatry Consult Note- Dr. Rodgers 57 yo male pt is seen at bedside in the ED this morning for R foot blister. Pt is well-known to the podiatry service and was last seen in the clinic yesterday 10/25 for drainage of blister R 5th toe. Pt reports a new blister developed overnight to his 3rd toe. Denies any changes in activity level, denies any trauma or changes in shoe gear. Pt relates that he does have neuropathy in both feet. Denies any pain or discomfort, denies f/n/v/c/sob or cp at this time. Had amputation of R hallux approximately 2 months ago due to osteomyelitis. PMH: IDDMII, GERD Review of Systems - Review of Systems Review of Systems: all systems reviewed and found neg outside hpi Past Patient History - Infectious Disease Hx of Infectious Diseases: None - Past Medical History & Family History Past Medical History?: Yes - Past Social History Smoking Status: Former Smoker - CARDIAC Hx Hypertension: Yes - PULMONARY Hx Respiratory Disorders: No - NEUROLOGICAL Hx Neurological Disorder: No - HEENT Hx HEENT Problems: No - RENAL Hx Chronic Kidney Disease: No - ENDOCRINE/METABOLIC Hx Endocrine Disorders: Yes Hx Diabetes Mellitus Type 2: Yes - HEMATOLOGICAL/ONCOLOGICAL Hx Blood Disorders: No - INTEGUMENTARY Hx Dermatological Problems: No - MUSCULOSKELETAL/RHEUMATOLOGICAL Hx Musculoskeletal Disorders: No Hx Falls: No - GASTROINTESTINAL Hx Gastritis: Yes - GENITOURINARY/GYNECOLOGICAL Hx Genitourinary Disorders: No - PSYCHIATRIC Hx Substance Use: No - SURGICAL HISTORY Hx Appendectomy: Yes - ANESTHESIA Hx Anesthesia: Yes Hx Anesthesia Reactions: No Meds Allergies/Adverse Reactions: Allergies Allergy/AdvReac Type Severity Reaction Status Date / Time No Known Allergies Allergy Verified 10/26/17 08:11 Physical Exam - Constitutional Appears: Non-toxic, No Acute Distress - Extremities Exam Extremities exam: Negative for: calf tenderness Additional comments: Right foot focused: VASC- pedal pulses fully palpable, skin temp runs wnl, cap refill < 3 sec to all digits, moderate edema noted to distal aspect 3rd digit NEURO- gross and protective pedal sensation are diminished DERM- lanced bullous lesions noted to lateral aspect 5ht digit (no drainage no signs infection), there is a new serosanguinous bulla noted to distal-medial aspect 3rd digit which is fluctuant to touch, is non-tender, neg callor, neg ascending cellulitis, neg malodor, neg signs infection MSK- amputations of R hallux and R 2nd digit Left foot: pedal pulses palpable, no signs of any ulcerations, no signs infection - Neurological Exam Neurological exam: Alert, CN II-XII Intact, Oriented x3 - Psychiatric Exam Psychiatric exam: Normal Affect, Normal Mood Results - Vital Signs Recent Vital Signs: Last Vital Signs Temp 97.4 F L 10/26/17 08:13 Pulse 84 10/26/17 08:13 Resp 18 10/26/17 08:13 BP 136/86 10/26/17 08:13 Pulse Ox 100 10/26/17 08:57 Assessment & Plan - Assessment and Plan (Free Text) Assessment: 57 yo male pt with 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 Rodgers and Dr. Barahona Afebrile R foot x-ray reviewed (read by me): previous partial hallux amp and 2nd digit amp, neg gas, neg fluid collections Surgical shoe R foot Verbal consent obtained for bedside I&D R foot: R 3rd digit bulla lanced with sterile #11 blade, approx. 1cc serosanguinous drainage expressed (neg purulence) Dressed with betadine + DSD, JUD, keep c/d/i Pt advised to monitor for any signs of infection stable per podiatry f/u w/o [facility] podiatry clinic 11/01/17
[2017-10-26 10:50] VITALS: BP 139/91; PULSE 72; TEMP 97.7; O2SAT 97
--- NOTE | 2017-10-26 10:55 | RAD ---
PROCEDURE: Right Foot Radiographs. HISTORY: toe blisters COMPARISON: None. FINDINGS: BONES: Status post amputation 1st digit mid proximal phalangeal diaphysis. Status post amputation 2nd digit at MTP articulation. No acute fracture. No plain radiographic evidence of osteomyelitis. JOINTS: Normal. SOFT TISSUES: Normal. OTHER FINDINGS: None. IMPRESSION: Indications at 1st and 2nd digit as above. Otherwise unremarkable.
== END 2017-10-26 10:50 | disposition home or self-care (01) ==
LOC: C.ER 08:09
DX: S90.424A Blister (nonthermal), right lesser toe(s), initial encounter (principal); X58.XXXA Exposure to other specified factors, initial encounter

== ENCOUNTER 2017-10-30 18:45 | Emergency (ER) | payer OTHER ==
[2017-10-30 18:45] VITALS: BMI 23.3
[2017-10-30 18:48] VITALS: BP 129/71; PULSE 79; TEMP 98.2; O2SAT 99
--- NOTE | 2017-10-30 19:54 | C.PDOC ---
History Of Present Illness 57 y/o male with dm, seen in ED on 10/26 for blister to right 3rd toe, which was opened and drained by the podiatry resident, presents to ED for wound check of toe. pt concerned he may need antibiotics. denies fever, denies pain to toe. Time Seen by Provider: 10/30/17 19:35 Chief Complaint (Nursing): Wound Check History Per: Patient History/Exam Limitations: no limitations Onset/Duration Of Symptoms: Days Ago (4) Current Symptoms Are (Timing): Still Present Location Of Injury: Right: Foot Quality Of Symptoms: denies: Painful, Itching, Draining Past Medical History Reviewed: Historical Data, Nursing Documentation, Vital Signs Vital Signs: Last Vital Signs Temp 98.2 F 10/30/17 18:47 Pulse 79 10/30/17 18:47 Resp 16 10/30/17 20:07 BP 129/71 10/30/17 18:47 Pulse Ox 99 10/30/17 22:43 - Medical History PMH: Diabetes, Gastritis, Gastrointestinal Ulcer, HTN Denies: Chronic Kidney Disease Surgical History: Appendectomy - [facility] Procedures DETACHMENT AT RIGHT 1ST TOE, LOW, OPEN APPROACH (08/20/17) Family History: States: Unknown Family Hx - Social History Hx Alcohol Use: Yes (socially) Hx Substance Use: No - Immunization History Hx Tetanus Toxoid Vaccination: Yes Hx Influenza Vaccination: No Hx Pneumococcal Vaccination: No Review Of Systems Constitutional: Negative for: Fever, Chills Skin: Positive for: Other (skin blister right third toe) Neurological: Negative for: Weakness, Numbness Physical Exam - Physical Exam Appears: Non-toxic, No Acute Distress Extremity: Right: Other (+2 dp pulse, partial amputation big toe, small 3-4 mm blister noted on medial aspect of big toe, 2nd toe amputated, 3rd toe with dried firm whitish skin on distal end of toe, with pink tissue seen on lateral aspect toe under hardi skin, and whitish moist appearing skin on dorsal surface toe under hard skin. no drainage noted, no foul odor detected. ) Neurological/Psych: Oriented x3, Normal Speech, Normal Cognition ED Course And Treatment O2 Sat by Pulse Oximetry: 99 Medical Decision Making Medical Decision Making: discussed with Dr Jeronimo Byers, podiatry resident. will put betadine and dry dressing on toe, d/c with keflex and f/u in podiatry c,inic as scheduled on Wednesday, 11/01 Disposition Counseled Patient/Family Regarding: Diagnosis, Need For Followup, Rx Given - Disposition Referrals: Val Rodgers DPM [Staff Provider] - Disposition: HOME/ ROUTINE Disposition Time: 19:55 Condition: GOOD Additional Instructions: Please keep toe clean and dry with dressing intact until seen at your podiatry appointment on Wednesday. Take Keflex as prescribed Return to ER for pain. fever or other concerns. . Prescriptions: Cephalexin [cephalexin] 500 mg PO BID #14 cap Instructions: Blisters, Foot Care for Diabetics Forms: [facility] (Sami), General Discharge Instructions - Clinical Impression Clinical Impression: Blister
[2017-10-30 20:08] VITALS: RESP 16
== END 2017-10-30 20:07 | disposition home or self-care (01) ==
LOC: C.ER 18:45
DX: S90.424D Blister (nonthermal), right lesser toe(s), subsequent encounter (principal); X58.XXXD Exposure to other specified factors, subsequent encounter

== ENCOUNTER 2017-12-07 19:52 | Inpatient (IN) | payer MEDICARE, OTHER ==
[2017-12-07 19:52] VITALS: BMI 23.3
[2017-12-07] MEDS ORDERED: Sodium Chloride 0.9% 1,000 ML IV ONE (20:42)
--- NOTE | 2017-12-07 20:42 | C.PDOC ---
History Of Present Illness 57 y/o male presents to the ED complaining of chest discomfort, right shoulder numbness, and foot pain, on and off for the past week. No fevers, chills, nausea , or vomiting. Patient is a poorly controlled Insulin-dependent diabetic. Blood sugar is typically ~500. Time Seen by Provider: 12/07/17 20:41 Chief Complaint (Nursing): Chest Pain History Per: Patient History/Exam Limitations: no limitations Onset/Duration Of Symptoms: Intermittent Episodes Current Symptoms Are (Timing): Still Present Severity: Mild Pain Scale Rating Of: 4 Recent travel outside of the [place]: No Additional History Per: Prior Records Past Medical History Reviewed: Historical Data, Nursing Documentation, Vital Signs Vital Signs: Last Vital Signs Temp 97.8 F 12/08/17 00:14 Pulse 68 12/08/17 00:14 Resp 18 12/08/17 00:14 BP 147/73 12/08/17 00:14 Pulse Ox 98 12/08/17 00:14 - Medical History PMH: Diabetes, Gastritis, Gastrointestinal Ulcer, HTN Denies: Chronic Kidney Disease Surgical History: Appendectomy - [facility] Procedures DETACHMENT AT RIGHT 1ST TOE, LOW, OPEN APPROACH (08/20/17) Family History: States: No Known Family Hx - Social History Hx Alcohol Use: Yes (socially) Hx Substance Use: No - Immunization History Hx Tetanus Toxoid Vaccination: Yes Hx Influenza Vaccination: No Hx Pneumococcal Vaccination: No Review Of Systems Constitutional: Negative for: Fever, Chills Cardiovascular: Positive for: Chest Pain Gastrointestinal: Negative for: Nausea, Vomiting Musculoskeletal: Positive for: Foot Pain Neurological: Positive for: Numbness (of right shoulder) Physical Exam - Physical Exam Appears: Non-toxic, In Acute Distress (moderate) Skin: Warm, Dry Head: Normacephalic Eye(s): bilateral: Normal Inspection Oral Mucosa: Moist Neck: Trachea Midline, Supple Chest: Symmetrical Cardiovascular: Rhythm Regular Respiratory: No Rales, No Rhonchi, No Wheezing Gastrointestinal/Abdominal: Bowel Sounds (active), Soft, No Tenderness, No Distention Back: Normal Inspection Extremity: Normal ROM (of right shoulder), Capillary Refill (is normal at amputated toes), Deformity (Right foot with 1st phalanx amputation of the 1st toe, 2nd toe amputation, and the tip of 3rd toe has necrotic tissue noted), Other (Sensation intact) Pulses: Left Dorsalis Pedis: Normal, Right Dorsalis Pedis: Normal Neurological/Psych: Oriented x3 ED Course And Treatment - Laboratory Results Result Diagrams: 12/07/17 20:47 12/07/17 20:47 ECG: Interpreted By Me, Viewed By Me ECG Rhythm: Sinus Rhythm (71), Nonspecific Changes O2 Sat by Pulse Oximetry: 98 Pulse Ox Interpretation: Normal - Radiology CXR: Interpreted by Me, Viewed By Me CXR Interpretation: No: Infiltrates, Fracture, Pnemothorax Progress Note: Labs, EKG, CXR ordered and reviewed. IV fluids administered. spoke with the podiatry resident. saw and exained the pt at bedside. Ok to admit for possible amputation tomorrow Critical Care Time - Critical Care Note Total Time (in mins): 30 Documented critical care: time excludes all time spent performing seperately billable procedures. Disposition Discussed With : Kaushik Diego Comment: accepted the pt on his service and took over the care at 12 AM Doctor Will See Patient In The: ED Counseled Patient/Family Regarding: Studies Performed, Diagnosis - Disposition Disposition: HOSPITALIZED Disposition Time: 20:41 Condition: FAIR Forms: [employer] ([employer]wana) - POA Present On Arrival: Poor Glycemic Control - Clinical Impression Clinical Impression: Diabetic foot infection, Diabetes mellitus, Gangrene of toe of right foot - Scribe Statement The provider has reviewed the documentation as recorded by the Scribe (Jayda Aaron) Provider Attestation: All medical record entries made by the Scribe were at my direction and personally dictated by me. I have reviewed the chart and agree that the record accurately reflects my personal performance of the history, physical exam, medical decision making, and the department course for this patient. I have also personally directed, reviewed, and agree with the discharge instructions and disposition. Decision To Admit - Pt Status Changed To: Hospital Disposition Of: Inpatient - Admit Certification Admit to Inpatient:: After my assessment, the patient will require hospitalization for at least two midnights. This is because of the severity of symptoms shown, intensity of services needed, and/or the medical risk in this patient being treated as an outpatient. - InPatient: Physician Admission Certification: I certify that this patient requires 2 or more midnights of care for the following reason:: After my assessment, the patient will require hospitalization for at least two midnights. This is because of the severity of symptoms shown, intensity of services needed, and/or the medical risk in this patient being treated as an outpatient. - . Bed Request Type: Regular Admitting Physician: Kaushik Diego Patient Diagnosis: Diabetic foot infection, Diabetes mellitus, Gangrene of toe of right foot
[2017-12-07 20:52] LABS: EOS # 0.1 K/uL (0.0-0.7); HEMOGLOBIN 14.4 g/dL (12.0-18.0); MEAN PLATELET VOLUME 8.9 fL (7.2-11.7); MONO # 0.4 K/uL (0.0-0.8); NRBC % 0.1 % (0.0-2.0)
[2017-12-07 20:54] LABS: EOS % 2.6 % (0.0-4.0); LYMPH # 2.1 K/uL (1.0-4.3); LYMPH % 42.1 % (20.0-40.0); MEAN CELL VOLUME 85.8 fL (80.0-94.0); MEAN CORPUSCULAR HEMOGLOBIN 28.7 pg (27.0-31.0); MEAN CORPUSCULAR HGB CONC 33.4 g/dL (33.0-37.0); MONO % 8.1 % (0.0-10.0); NEUT # 2.3 K/uL (1.8-7.0); NEUT % 46.2 % (50.0-75.0); RBC 5.01 Mil/uL (4.40-5.90); RED CELL DISTRIBUTION WIDTH 13.8 % (11.5-14.5); WHITE BLOOD COUNT 4.9 K/uL (4.8-10.8)
[2017-12-07 20:55] LABS: VENOUS BLOOD GAS BASE EXCESS -0.2 mmol/L (0.0-2.0); VENOUS BLOOD GAS PCO2 50 mmHg (40-60); VENOUS BLOOD GAS PO2 22 mm/Hg (30-55); VENOUS BLOOD PH 7.33 (7.32-7.43)
[2017-12-07 21:04] LABS: INR 0.9; PROTHROMBIN TIME 10.1 SECONDS (9.7-12.2)
[2017-12-07 21:06] LABS: ALB/GLOB RATIO 1.2 (1.0-2.1); ALBUMIN 3.7 g/dL (3.5-5.0); ALT/SGPT 19 U/L (21-72); AST/SGOT 29 U/L (17-59); BLOOD UREA NITROGEN 35 mg/dL (9-20); CALCIUM 8.2 mg/dl (8.6-10.4); GFR AFRICAN-AMERICAN 59; GFR NON-AFRICAN AMERICAN 48; LIPASE < 10 U/L (23-300)
[2017-12-07 21:36] LABS: URINE BILIRUBIN NEGATIVE (NEGATIVE); URINE BLOOD NEGATIVE (NEGATIVE); URINE CLARITY Clear (Clear); URINE COLOR Yellow (YELLOW); URINE GLUCOSE (UA) 3+ mg/dL (Normal); URINE LEUKOCYTE ESTERASE NEG Leu/uL (Negative); URINE PROTEIN NEGATIVE (NEGATIVE); URINE UROBILINOGEN NORMAL mg/dL (0.2-1.0)
--- NOTE | 2017-12-07 22:53 | CP.PCM.CON ---
History of Present Illness - History of Present Illness History of Present Illness: Podiatry Consult Note- Dr. Rodgers 57 yo male patient consulted in the ED for right 3rd digit gangrene. Patient reports that in the last week the 3rd digit appears more black. Patient reports that about 2 months ago, there were blisters on the hallux, 3rd and 5th digit after wearing shoes. He reports was seen in podiatry clinic in which blisters were drained and cleansed, to wear surgical shoe, and given 10 day course of abx in which he completed. Patient reports he came to the ED today because of chest pains, abdominal pain, and right 3rd digit discoloration. Patient reports his chest pains resolved on it's own since the ED. Denies chest pains currently. Denies nausea, fever, shortness of breath, chills or vomiting. Denies pain to the lower extremity. Patient reports that he has little sensation to his feet and does not feel much. 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), b/l excision of bone b/l hallux, appendectomy, right hallux palatal ampuation SH: former smoker 1 PPD (x30 years) quit 6 years ago, admits to social ETOH, denies recent illicit drug use ALL: NKDA MEDS: see MAR (reviewed) Past Patient History - Infectious Disease Hx of Infectious Diseases: None - Past Medical History & Family History Past Medical History?: Yes - Past Social History Smoking Status: Former Smoker - CARDIAC Hx Hypertension: Yes - PULMONARY Hx Respiratory Disorders: No - NEUROLOGICAL Hx Neurological Disorder: No - HEENT Hx HEENT Problems: No - RENAL Hx Chronic Kidney Disease: No - ENDOCRINE/METABOLIC Hx Endocrine Disorders: Yes Hx Diabetes Mellitus Type 2: Yes - HEMATOLOGICAL/ONCOLOGICAL Hx Blood Disorders: No - INTEGUMENTARY Hx Dermatological Problems: No - MUSCULOSKELETAL/RHEUMATOLOGICAL Hx Musculoskeletal Disorders: No Hx Falls: No - GASTROINTESTINAL Hx Gastritis: Yes - GENITOURINARY/GYNECOLOGICAL Hx Genitourinary Disorders: No - PSYCHIATRIC Hx Substance Use: No - SURGICAL HISTORY Hx Appendectomy: Yes - ANESTHESIA Hx Anesthesia: Yes Hx Anesthesia Reactions: No Meds Allergies/Adverse Reactions: Allergies Allergy/AdvReac Type Severity Reaction Status Date / Time No Known Allergies Allergy Verified 10/30/17 18:48 Physical Exam - Constitutional Appears: Well, Non-toxic, No Acute Distress - Extremities Exam Extremities exam: Negative for: calf tenderness Additional comments: Lower extremity focused examination: VASC- pedal pulses fully palpable 2/4 bilaterally, skin temperature warm to cool from proximal knees to distal digits , cap refill < 3 sec to all digits, moderate edema noted to distal aspect right 3rd digit NEURO- gross sensation diminished and protective pedal sensation absent DERM- Ulceration noted to the distal right 3rd digit plantarly measuring approximately 5 cm x 2 x .4 cm with necrotic skin to the distal toe. Wound base is mainly granular, mal odor noted, no purulence drainage, mild serous drainage noted, no erythema, no streaking, no fluctanance or abscess appreciated. Dried lanced bullous lesions noted to lateral aspect 5ht digit measuring approximately 1.5 cm x 1.5 cm (no drainage no signs infection) ORTHO- amputations of R hallux and R 2nd digit, no pain with palpation to ulceration site - Neurological Exam Neurological exam: Alert, Oriented x3 - Psychiatric Exam Psychiatric exam: Normal Affect, Normal Mood Results - Vital Signs Recent Vital Signs: Last Vital Signs Temp 97.6 F 12/07/17 20:07 Pulse 85 12/07/17 20:07 Resp 20 12/07/17 20:07 BP 119/80 12/07/17 20:07 Pulse Ox 98 12/07/17 21:31 - Labs Result Diagrams: 12/07/17 20:47 12/07/17 20:47 Labs: Laboratory Results - last 24 hr 12/07/17 12/07/17 12/07/17 20:29 20:47 20:47 WBC 4.9 RBC 5.01 Hgb 14.4 Hct 42.9 MCV 85.8 MCH 28.7 MCHC 33.4 RDW 13.8 Plt Count 278 MPV 8.9 Neut % (Auto) 46.2 L Lymph % (Auto) 42.1 H [place] % (Auto) 8.1 Eos % (Auto) 2.6 Baso % (Auto) 1.0 Neut # (Auto) 2.3 Lymph # (Auto) 2.1 [place] # (Auto) 0.4 Eos # (Auto) 0.1 Baso # (Auto) 0.0 PT 10.1 INR 0.9 APTT 33 pO2 VBG pH VBG pCO2 VBG HCO3 VBG Total CO2 VBG O2 Sat (Calc) VBG Base Excess VBG Potassium Glucose Lactate FiO2 Crit Value Called To Crit Value Called By Crit Value Read Back Blood Gas Notified Time Sodium Potassium Chloride Carbon Dioxide Anion Gap BUN Creatinine Est GFR ( Amer) Est GFR (Non-Af Amer) POC Glucose (mg/dL) > 500 H* Random Glucose Calcium Magnesium Total Bilirubin AST ALT Alkaline Phosphatase Troponin I Total Protein Albumin Globulin Albumin/Globulin Ratio Lipase Venous Blood Potassium Urine Color Urine Clarity Urine pH Ur Specific Bradley Urine Protein Urine Glucose (UA) Urine Ketones Urine Blood Urine Nitrate Urine Bilirubin Urine Urobilinogen Ur Leukocyte Esterase Urine WBC (Auto) 12/07/17 12/07/17 12/07/17 20:47 20:50 21:27 WBC RBC Hgb Hct MCV MCH MCHC RDW Plt Count MPV Neut % (Auto) Lymph % (Auto) [place] % (Auto) Eos % (Auto) Baso % (Auto) Neut # (Auto) Lymph # (Auto) [place] # (Auto) Eos # (Auto) Baso # (Auto) PT INR APTT pO2 22 L VBG pH 7.33 VBG pCO2 50 VBG HCO3 23.0 VBG Total CO2 27.9 VBG O2 Sat (Calc) 40.2 VBG Base Excess -0.2 L VBG Potassium 4.2 Glucose 510 H* D Lactate 1.6 FiO2 21.0 Crit Value Called To Dr lopez Crit Value Called By [facility] Crit Value Read Back Y Blood Gas Notified Time 2054 Sodium 133 136.0 Potassium 4.8 Chloride 97 L 102.0 Carbon Dioxide 27 Anion Gap 15 BUN 35 H Creatinine 1.5 Est GFR ( Amer) 59 Est GFR (Non-Af Amer) 48 POC Glucose (mg/dL) Random Glucose 538 H* D Calcium 8.2 L Magnesium 2.3 Total Bilirubin 1.2 AST 29 ALT 19 L D Alkaline Phosphatase 150 H D Troponin I 0.0170 Total Protein 6.9 Albumin 3.7 Globulin 3.2 Albumin/Globulin Ratio 1.2 Lipase < 10 L Venous Blood Potassium 4.2 Urine Color Yellow Urine Clarity Clear Urine pH 5.0 Ur Specific Bradley 1.027 Urine Protein Negative Urine Glucose (UA) 3+ H Urine Ketones Negative Urine Blood Negative Urine Nitrate Negative Urine Bilirubin Negative Urine Urobilinogen Normal Ur Leukocyte Esterase Neg Urine WBC (Auto) 1 Assessment & Plan - Assessment and Plan (Free Text) Assessment: 57 yo male patient with right 3rd digit distal ulceration with dry gangrene with possible osteomyelitis Plan: Patient seen and examined Discussed plan in details with attending Dr. Rodgers Labs, vitals, chart reviewed, afebrile WBC=4.9 X-rays ordered of right foot to r/o OM of the right 3rd digit- pending Wound culture taken of right 3rd digit Betadine applied to ulceration, dressed with dsd, and kerlix ESR and CRP ordered Surgical shoe ordered To be WBAT in surgical shoes at all times bilaterally Will continue to follow while on floors Thank you for allowing us to take part in patient's care
[2017-12-08] MEDS ORDERED: Sodium Chloride 0.9% 1,000 ML IV ONE (00:23)
--- NOTE | 2017-12-08 01:08 | CP.PCM.HP ---
<Can Stanford - Last Filed: 12/08/17 04:16> History of Present Illness - History of Present Illness History of Present Illness: This is a 57 yo male with past medical hx of DM, diagnosed 25 years ago, insulin dependent, multiple amputations, HTN, gastritis, presenting to [facility] ER with chief complaint of chest pain. Pt says he drove into ER himself. He says the chest pain started 2 days ago. It is substernal with radiation to his right shoulder. He was lying in bed 2 days ago when the pain started and it came on gradually. He says it has never happened before. He says it is a pressure sensation. It is 4/10 currently but it was getting worse so he came in. It is not reproducible to palpation. He says he thinks he had a stress test a few years back which he thinks was normal. He denies cardiac cath. He reports some associated numbness and stiffness in his right arm. He says lying on his right side makes it worse. He denies any relation to food. He denies any current shortness of breath but says he is out of breath by the time he climbs 3 flights of stairs. He denies dizziness, syncope, diaphoresis, fevers, chills, cough. He does admit to bloating and belching. He says he is due to see a GI for this problem in January. He also says he was concerned about his right toe that was becoming gangrenous. He had an operation on his right foot recently and was wearing open toed shoes with stitches for a while. He came to [facility] at [facility] to have stitches removed and began wearing regular shoes. He says the regular shoes were bothering him a lot and he thinks that was when the gangrene started to develop. Records indicate he has been admitted recently for the same complaint. He denies pain and says he really does not have much feeling in the area. He does take insulin at home but says he sometimes forgets to take his doses. He says he also does not check his sugar regularly. He has recently been experiencing insurance and money issues. 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), currently going to [facility] at [facility] Specialists: none Insurance: [employer] care 100 percent [facility] PMH: DM, insulin dependent, most recent a1C 9.18 September 2017 diabetic foot ulcers/ gangrene, HTN, echo 08/2017 shows normal EF 60-65 percent, some diastolic dx, hypertensive heart disease, mild mitral regurg, mild tricuspid regurg PSH: right 2nd digit amputation (6 years ago), bilateral excision of bone b/l hallux, appendectomy, right hallux partial amputation Allergies: NKDA FH- mother - - [place] father- DM Home meds: humalog 75/25 30 units in morning and 30 units in evening, losartan 50 mg PO bid, simvastatin 10 mg PO HS, omeprazole 40 mg po daily Social hx: Former smoker. Smoked for a total of 20 yrs. Smoked 1 ppd. Moderate- heavy drinker 2 shots and 2 beers/day. Denies drug use, although previous records pt has a history of using marijuana and cocaine. Does not work. 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 Lives with [facility]. Fully mobile and able to perform all ADLs without assistance. Born in . Code status: full code Present on Admission - Present on Admission Any Indicators Present on Admission: Yes History of DVT/PE: No History of Uncontrolled Diabetes: Yes Urinary Catheter: No Decubitus Ulcer Present: No Review of Systems - Constitutional Constitutional: absent: Chills, Fever - EENT Eyes: absent: Blurred Vision, Change in Vision Nose/Mouth/Throat: absent: Nasal Congestion, Sore Throat - Cardiovascular Cardiovascular: Chest Pain, Chest Pain at Rest. absent: Diaphoresis - Respiratory Respiratory: Dyspnea on Exertion. absent: Cough, Dyspnea, Chest Congestion - Gastrointestinal Gastrointestinal: Belching, Bloating - Genitourinary Genitourinary: absent: Difficulty Urinating, Dysuria - Musculoskeletal Musculoskeletal: Numbness, Stiffness. absent: Back Pain - Integumentary Integumentary: Skin Ulcer, Wounds - Neurological Neurological: absent: Dizziness, Weakness - Psychiatric Psychiatric: absent: Anxiety, Visual Hallucinations - Hematologic/Lymphatic Hematologic: absent: Easy Bleeding, Easy Bruising Past Patient History - Infectious Disease Hx of Infectious Diseases: None - Tetanus Immunizations Tetanus Immunization: Unknown - Past Medical History & Family History Past Medical History?: Yes Pertinent Family History: [place], DM in family - Past Social History Smoking Status: Former Smoker Chewing Tobacco Use: No Cigar Use: No Alcohol: > 2 Drinks/Day Drugs: Denies Home Situation {Lives}: With Family Domestic Violence: Negative - CARDIAC Hx Hypertension: Yes - PULMONARY Hx Respiratory Disorders: No - NEUROLOGICAL Hx Neurological Disorder: No - HEENT Hx HEENT Problems: No - RENAL Hx Chronic Kidney Disease: No - ENDOCRINE/METABOLIC Hx Endocrine Disorders: Yes Hx Diabetes Mellitus Type 2: Yes - HEMATOLOGICAL/ONCOLOGICAL Hx Blood Disorders: No - INTEGUMENTARY Hx Dermatological Problems: No - MUSCULOSKELETAL/RHEUMATOLOGICAL Hx Musculoskeletal Disorders: No Hx Falls: No - GASTROINTESTINAL Hx Gastritis: Yes - GENITOURINARY/GYNECOLOGICAL Hx Genitourinary Disorders: No - PSYCHIATRIC Hx Substance Use: No - SURGICAL HISTORY Hx Appendectomy: Yes - ANESTHESIA Hx Anesthesia: Yes Hx Anesthesia Reactions: No Meds Allergies/Adverse Reactions: Allergies Allergy/AdvReac Type Severity Reaction Status Date / Time No Known Allergies Allergy Verified 10/30/17 18:48 Physical Exam - Constitutional Appears: Non-toxic, No Acute Distress - Head Exam Head Exam: ATRAUMATIC, NORMAL INSPECTION, NORMOCEPHALIC - Eye Exam Eye Exam: EOMI - ENT Exam ENT Exam: Mucous Membranes Moist - Neck Exam Neck exam: Positive for: Full Rom, Normal Inspection - Respiratory Exam Respiratory Exam: NORMAL BREATHING PATTERN. absent: Respiratory Distress - Cardiovascular Exam Cardiovascular Exam: REGULAR RHYTHM, +S1, +S2 - GI/Abdominal Exam GI & Abdominal Exam: Normal Bowel Sounds, Soft. absent: Tenderness - Exam Exam: NORMAL INSPECTION - Extremities Exam Extremities exam: Negative for: full ROM, normal inspection Additional comments: Ulceration right 3rd digit with some necrosis; no purulent drainage; no fluctuance or abscess noted; bilateral toenail fungus; amputation of right big toe and right 2nd toe, no tenderness to palpation - Back Exam Back exam: NORMAL INSPECTION - Neurological Exam Neurological exam: Alert, CN II-XII Intact, Oriented x3 - Skin Skin Exam: Dry, Intact, Normal Color, Warm Results - Vital Signs Recent Vital Signs: Last Vital Signs Temp 97.8 F 12/08/17 00:14 Pulse 68 12/08/17 00:14 Resp 18 12/08/17 00:14 BP 147/73 12/08/17 00:14 Pulse Ox 98 12/08/17 00:23 - Labs Result Diagrams: 12/07/17 20:47 12/07/17 20:47 Labs: Laboratory Results - last 24 hr 12/07/17 12/07/17 12/07/17 20:29 20:47 20:47 WBC 4.9 RBC 5.01 Hgb 14.4 Hct 42.9 MCV 85.8 MCH 28.7 MCHC 33.4 RDW 13.8 Plt Count 278 MPV 8.9 Neut % (Auto) 46.2 L Lymph % (Auto) 42.1 H [place] % (Auto) 8.1 Eos % (Auto) 2.6 Baso % (Auto) 1.0 Neut # (Auto) 2.3 Lymph # (Auto) 2.1 Jess[place] # (Auto) 0.4 Eos # (Auto) 0.1 Baso # (Auto) 0.0 ESR PT 10.1 INR 0.9 APTT 33 pO2 VBG pH VBG pCO2 VBG HCO3 VBG Total CO2 VBG O2 Sat (Calc) VBG Base Excess VBG Potassium Glucose Lactate FiO2 Crit Value Called To Crit Value Called By Crit Value Read Back Blood Gas Notified Time Sodium Potassium Chloride Carbon Dioxide Anion Gap BUN Creatinine Est GFR ( Amer) Est GFR (Non-Af Amer) POC Glucose (mg/dL) > 500 H* Random Glucose Calcium Magnesium Total Bilirubin AST ALT Alkaline Phosphatase Troponin I C-Reactive Protein Total Protein Albumin Globulin Albumin/Globulin Ratio Lipase Venous Blood Potassium Urine Color Urine Clarity Urine pH Ur Specific Lamont Urine Protein Urine Glucose (UA) Urine Ketones Urine Blood Urine Nitrate Urine Bilirubin Urine Urobilinogen Ur Leukocyte Esterase Urine WBC (Auto) 12/07/17 12/07/17 12/07/17 20:47 20:50 21:27 WBC RBC Hgb Hct MCV MCH MCHC RDW Plt Count MPV Neut % (Auto) Lymph % (Auto) Jess[place] % (Auto) Eos % (Auto) Baso % (Auto) Neut # (Auto) Lymph # (Auto) Jess[place] # (Auto) Eos # (Auto) Baso # (Auto) ESR PT INR APTT pO2 22 L VBG pH 7.33 VBG pCO2 50 VBG HCO3 23.0 VBG Total CO2 27.9 VBG O2 Sat (Calc) 40.2 VBG Base Excess -0.2 L VBG Potassium 4.2 Glucose 510 H* D Lactate 1.6 FiO2 21.0 Crit Value Called To Dr lopez Crit Value Called By [facility] Crit Value Read Back Y Blood Gas Notified Time 2054 Sodium 133 136.0 Potassium 4.8 Chloride 97 L 102.0 Carbon Dioxide 27 Anion Gap 15 BUN 35 H Creatinine 1.5 Est GFR ( Amer) 59 Est GFR (Non-Af Amer) 48 POC Glucose (mg/dL) Random Glucose 538 H* D Calcium 8.2 L Magnesium 2.3 Total Bilirubin 1.2 AST 29 ALT 19 L D Alkaline Phosphatase 150 H D Troponin I 0.0170 C-Reactive Protein Total Protein 6.9 Albumin 3.7 Globulin 3.2 Albumin/Globulin Ratio 1.2 Lipase < 10 L Venous Blood Potassium 4.2 Urine Color Yellow Urine Clarity Clear Urine pH 5.0 Ur Specific Lamont 1.027 Urine Protein Negative Urine Glucose (UA) 3+ H Urine Ketones Negative Urine Blood Negative Urine Nitrate Negative Urine Bilirubin Negative Urine Urobilinogen Normal Ur Leukocyte Esterase Neg Urine WBC (Auto) 1 12/07/17 12/07/17 12/08/17 23:44 23:44 00:10 WBC RBC Hgb Hct MCV MCH MCHC RDW Plt Count MPV Neut % (Auto) Lymph % (Auto) Jess[place] % (Auto) Eos % (Auto) Baso % (Auto) Neut # (Auto) Lymph # (Auto) Jess[place] # (Auto) Eos # (Auto) Baso # (Auto) ESR 7 PT INR APTT pO2 VBG pH VBG pCO2 VBG HCO3 VBG Total CO2 VBG O2 Sat (Calc) VBG Base Excess VBG Potassium Glucose Lactate FiO2 Crit Value Called To Crit Value Called By Crit Value Read Back Blood Gas Notified Time Sodium Potassium Chloride Carbon Dioxide Anion Gap BUN Creatinine Est GFR ( Amer) Est GFR (Non-Af Amer) POC Glucose (mg/dL) 358 H Random Glucose Calcium Magnesium Total Bilirubin AST ALT Alkaline Phosphatase Troponin I C-Reactive Protein 5.80 Total Protein Albumin Globulin Albumin/Globulin Ratio Lipase Venous Blood Potassium Urine Color Urine Clarity Urine pH Ur Specific Lamont Urine Protein Urine Glucose (UA) Urine Ketones Urine Blood Urine Nitrate Urine Bilirubin Urine Urobilinogen Ur Leukocyte Esterase Urine WBC (Auto) 12/08/17 00:42 WBC RBC Hgb Hct MCV MCH MCHC RDW Plt Count MPV Neut % (Auto) Lymph % (Auto) Jess[place] % (Auto) Eos % (Auto) Baso % (Auto) Neut # (Auto) Lymph # (Auto) Jess[place] # (Auto) Eos # (Auto) Baso # (Auto) ESR PT INR APTT pO2 VBG pH VBG pCO2 VBG HCO3 VBG Total CO2 VBG O2 Sat (Calc) VBG Base Excess VBG Potassium Glucose Lactate FiO2 Crit Value Called To Crit Value Called By Crit Value Read Back Blood Gas Notified Time Sodium Potassium Chloride Carbon Dioxide Anion Gap BUN Creatinine Est GFR ( Amer) Est GFR (Non-Af Amer) POC Glucose (mg/dL) 313 H Random Glucose Calcium Magnesium Total Bilirubin AST ALT Alkaline Phosphatase Troponin I C-Reactive Protein Total Protein Albumin Globulin Albumin/Globulin Ratio Lipase Venous Blood Potassium Urine Color Urine Clarity Urine pH Ur Specific Lam[place] Urine Protein Urine Glucose (UA) Urine Ketones Urine Blood Urine Nitrate Urine Bilirubin Urine Urobilinogen Ur Leukocyte Esterase Urine WBC (Auto) Assessment & Plan - Assessment and Plan (Free Text) Assessment: This is a 57 yo male with hx of DM, insulin dependent, HTN, gastritis, diabetic ulcerations, osteomyelitis presenting with chest pain and gangrenous toe. 1. Chest pain, r/o ACS -initial EKG shows NSR with normal intervals, rate of 71, no acute ST changes -echo 08/2017 shows normal EF 60-65 percent, some diastolic dx, hypertensive heart disease, mild mitral regurg, mild tricuspid regurg -initial troponin negative, second troponin negative -will repeat 1 more trops q 6 hrs along with serial ekgs -asa 81 mg po daily -heart healthy diet -losartan 50 mg po bid -lovenox 40 mg sc daily -restart simvastatin 10 mg po hs -lipid panel -admitting pt to telemetry floor -HGB a1c pending - O2 PRN nasal cannula -vital signs stable -TSH/free T4 pending -cardiology consult. Dr. Gooden. recs appreciated. -urine drug screen negative -serum alcohol level < 10 2. Hx of DM -will start low dose insulin sliding scale -checking HGB a1C -last A1C 9.3 -accuchecks ACHS -hypoglycemia protocol -start IV NS 100 cc/hr 3. Gangrenous toe -podiatry consult. Dr. Rodgers. recs appreciated. -rule out osteomyelitis -right foot x ray pending -may need mri -ESR and CRP both within normal limits -blood cultures x 2 pending -wound culture pending -previous wond cultures grew staph epidermidis, corynebacterium, and staph aureus -ID consult. Dr. Lawrence. recs appreciated. -begin IV vancomycin 1 g daily -begin IV zosyn 3.375 mg q 8 hrs -betadine applied and dressed by podiatry resident -surgical shoe ordered -weight bearing as tolerated only with surgical shoes 4. hx of HTN -continue losartan 50 mg po bid 5. hx of HLD -continue simvastatin 10 mg po hs 6. hx of marijuana use -continue to monitor 7. hx of cocaine use -denies current use. -continue to monitor 8. elevated alkaline phosphatase -likely secondary to uncontrolled diabetes -repeat labs in am -continue to monitor 6. GI/DVT ppx -protonix 40 mg iv daily -lovenox 40 mg sc daily full code status Diet: heart healthy Activity: as tolerated only with special surgical shoes discussed with Dr. Diego <Kaushik Diego - Last Filed: 12/08/17 19:04> Results - Vital Signs Recent Vital Signs: Last Vital Signs Temp 98.2 F 12/08/17 15:45 Pulse 60 12/08/17 15:45 Resp 18 12/08/17 15:45 BP 145/89 12/08/17 15:45 Pulse Ox 98 12/08/17 15:45 - Labs Result Diagrams: 12/08/17 07:08 12/07/17 20:47 Labs: Laboratory Results - last 24 hr 12/07/17 12/07/17 12/07/17 20:29 20:47 20:47 WBC 4.9 RBC 5.01 Hgb 14.4 Hct 42.9 MCV 85.8 MCH 28.7 MCHC 33.4 RDW 13.8 Plt Count 278 MPV 8.9 Neut % (Auto) 46.2 L Lymph % (Auto) 42.1 H [place] % (Auto) 8.1 Eos % (Auto) 2.6 Baso % (Auto) 1.0 Neut # (Auto) 2.3 Lymph # (Auto) 2.1 [place] # (Auto) 0.4 Eos # (Auto) 0.1 Baso # (Auto) 0.0 ESR PT 10.1 INR 0.9 APTT 33 pO2 VBG pH VBG pCO2 VBG HCO3 VBG Total CO2 VBG O2 Sat (Calc) VBG Base Excess VBG Potassium Glucose Lactate FiO2 Crit Value Called To Crit Value Called By Crit Value Read Back Blood Gas Notified Time Sodium Potassium Chloride Carbon Dioxide Anion Gap BUN Creatinine Est GFR ( Amer) Est GFR (Non-Af Amer) POC Glucose (mg/dL) > 500 H* Random Glucose Hemoglobin A1c Calcium Magnesium Total Bilirubin AST ALT Alkaline Phosphatase Total Creatine Kinase CK-MB (Mass) Troponin I C-Reactive Protein Total Protein Albumin Globulin Albumin/Globulin Ratio Triglycerides Cholesterol LDL Cholesterol Direct HDL Cholesterol Lipase Free T4 TSH 3rd Generation Venous Blood Potassium Urine Color Urine Clarity Urine pH Ur Specific Lam[place] Urine Protein Urine Glucose (UA) Urine Ketones Urine Blood Urine Nitrate Urine Bilirubin Urine Urobilinogen Ur Leukocyte Esterase Urine WBC (Auto) Urine Opiates Screen Urine Methadone Screen Ur Barbiturates Screen Ur Phencyclidine Scrn Ur Amphetamines Screen U Benzodiazepines Scrn U Oth Cocaine Metabols U Cannabinoids Screen Alcohol, Quantitative 12/07/17 12/07/17 12/07/17 20:47 20:50 21:27 WBC RBC Hgb Hct MCV MCH MCHC RDW Plt Count MPV Neut % (Auto) Lymph % (Auto) [place] % (Auto) Eos % (Auto) Baso % (Auto) Neut # (Auto) Lymph # (Auto) [place] # (Auto) Eos # (Auto) Baso # (Auto) ESR PT INR APTT pO2 22 L VBG pH 7.33 VBG pCO2 50 VBG HCO3 23.0 VBG Total CO2 27.9 VBG O2 Sat (Calc) 40.2 VBG Base Excess -0.2 L VBG Potassium 4.2 Glucose 510 H* D Lactate 1.6 FiO2 21.0 Crit Value Called To Dr lopez Crit Value Called By [facility] Crit Value Read Back Y Blood Gas Notified Time 2054 Sodium 133 136.0 Potassium 4.8 Chloride 97 L 102.0 Carbon Dioxide 27 Anion Gap 15 BUN 35 H Creatinine 1.5 Est GFR ( Amer) 59 Est GFR (Non-Af Amer) 48 POC Glucose (mg/dL) Random Glucose 538 H* D Hemoglobin A1c Calcium 8.2 L Magnesium 2.3 Total Bilirubin 1.2 AST 29 ALT 19 L D Alkaline Phosphatase 150 H D Total Creatine Kinase CK-MB (Mass) Troponin I 0.0170 C-Reactive Protein Total Protein 6.9 Albumin 3.7 Globulin 3.2 Albumin/Globulin Ratio 1.2 Triglycerides Cholesterol LDL Cholesterol Direct HDL Cholesterol Lipase < 10 L Free T4 TSH 3rd Generation Venous Blood Potassium 4.2 Urine Color Yellow Urine Clarity Clear Urine pH 5.0 Ur Specific Lam[place] 1.027 Urine Protein Negative Urine Glucose (UA) 3+ H Urine Ketones Negative Urine Blood Negative Urine Nitrate Negative Urine Bilirubin Negative Urine Urobilinogen Normal Ur Leukocyte Esterase Neg Urine WBC (Auto) 1 Urine Opiates Screen Urine Methadone Screen Ur Barbiturates Screen Ur Phencyclidine Scrn Ur Amphetamines Screen U Benzodiazepines Scrn U Oth Cocaine Metabols U Cannabinoids Screen Alcohol, Quantitative 12/07/17 12/07/17 12/08/17 23:44 23:44 00:10 WBC RBC Hgb Hct MCV MCH MCHC RDW Plt Count MPV Neut % (Auto) Lymph % (Auto) [place] % (Auto) Eos % (Auto) Baso % (Auto) Neut # (Auto) Lymph # (Auto) [place] # (Auto) Eos # (Auto) Baso # (Auto) ESR 7 PT INR APTT pO2 VBG pH VBG pCO2 VBG HCO3 VBG Total CO2 VBG O2 Sat (Calc) VBG Base Excess VBG Potassium Glucose Lactate FiO2 Crit Value Called To Crit Value Called By Crit Value Read Back Blood Gas Notified Time Sodium Potassium Chloride Carbon Dioxide Anion Gap BUN Creatinine Est GFR ( Amer) Est GFR (Non-Af Amer) POC Glucose (mg/dL) 358 H Random Glucose Hemoglobin A1c Calcium Magnesium Total Bilirubin AST ALT Alkaline Phosphatase Total Creatine Kinase CK-MB (Mass) Troponin I C-Reactive Protein 5.80 Total Protein Albumin Globulin Albumin/Globulin Ratio Triglycerides Cholesterol LDL Cholesterol Direct HDL Cholesterol Lipase Free T4 TSH 3rd Generation Venous Blood Potassium Urine Color Urine Clarity Urine pH Ur Specific [place] Urine Protein Urine Glucose (UA) Urine Ketones Urine Blood Urine Nitrate Urine Bilirubin Urine Urobilinogen Ur Leukocyte Esterase Urine WBC (Auto) Urine Opiates Screen Urine Methadone Screen Ur Barbiturates Screen Ur Phencyclidine Scrn Ur Amphetamines Screen U Benzodiazepines Scrn U Oth Cocaine Metabols U Cannabinoids Screen Alcohol, Quantitative 12/08/17 12/08/17 12/08/17 00:42 02:48 03:23 WBC RBC Hgb Hct MCV MCH MCHC RDW Plt Count MPV Neut % (Auto) Lymph % (Auto) [place] % (Auto) Eos % (Auto) Baso % (Auto) Neut # (Auto) Lymph # (Auto) [place] # (Auto) Eos # (Auto) Baso # (Auto) ESR PT INR APTT pO2 VBG pH VBG pCO2 VBG HCO3 VBG Total CO2 VBG O2 Sat (Calc) VBG Base Excess VBG Potassium Glucose Lactate FiO2 Crit Value Called To Crit Value Called By Crit Value Read Back Blood Gas Notified Time Sodium Potassium Chloride Carbon Dioxide Anion Gap BUN Creatinine Est GFR ( Amer) Est GFR (Non-Af Amer) POC Glucose (mg/dL) 313 H Random Glucose Hemoglobin A1c 9.3 H Calcium Magnesium Total Bilirubin AST ALT Alkaline Phosphatase Total Creatine Kinase 172 H CK-MB (Mass) 2.16 Troponin I < 0.0120 C-Reactive Protein Total Protein Albumin Globulin Albumin/Globulin Ratio Triglycerides 191 H D Cholesterol 174 LDL Cholesterol Direct 77 HDL Cholesterol 56 Lipase Free T4 TSH 3rd Generation 10.90 H Venous Blood Potassium Urine Color Urine Clarity Urine pH Ur Specific [place] Urine Protein Urine Glucose (UA) Urine Ketones Urine Blood Urine Nitrate Urine Bilirubin Urine Urobilinogen Ur Leukocyte Esterase Urine WBC (Auto) Urine Opiates Screen Urine Methadone Screen Ur Barbiturates Screen Ur Phencyclidine Scrn Ur Amphetamines Screen U Benzodiazepines Scrn U Oth Cocaine Metabols U Cannabinoids Screen Alcohol, Quantitative 12/08/17 12/08/17 12/08/17 03:23 03:27 03:27 WBC RBC Hgb Hct MCV MCH MCHC RDW Plt Count MPV Neut % (Auto) Lymph % (Auto) [place] % (Auto) Eos % (Auto) Baso % (Auto) Neut # (Auto) Lymph # (Auto) [place] # (Auto) Eos # (Auto) Baso # (Auto) ESR PT INR APTT pO2 VBG pH VBG pCO2 VBG HCO3 VBG Total CO2 VBG O2 Sat (Calc) VBG Base Excess VBG Potassium Glucose Lactate FiO2 Crit Value Called To Crit Value Called By Crit Value Read Back Blood Gas Notified Time Sodium Potassium Chloride Carbon Dioxide Anion Gap BUN Creatinine Est GFR ( Amer) Est GFR (Non-Af Amer) POC Glucose (mg/dL) Random Glucose Hemoglobin A1c Calcium Magnesium Total Bilirubin AST ALT Alkaline Phosphatase Total Creatine Kinase CK-MB (Mass) Troponin I C-Reactive Protein Total Protein Albumin Globulin Albumin/Globulin Ratio Triglycerides Cholesterol LDL Cholesterol Direct HDL Cholesterol Lipase Free T4 1.09 TSH 3rd Generation Venous Blood Potassium Urine Color Urine Clarity Urine pH Ur Specific [place] Urine Protein Urine Glucose (UA) Urine Ketones Urine Blood Urine Nitrate Urine Bilirubin Urine Urobilinogen Ur Leukocyte Esterase Urine WBC (Auto) Urine Opiates Screen Negative Urine Methadone Screen Negative Ur Barbiturates Screen Negative Ur Phencyclidine Scrn Negative Ur Amphetamines Screen Negative U Benzodiazepines Scrn Negative U Oth Cocaine Metabols Negative U Cannabinoids Screen Negative Alcohol, Quantitative < 10 12/08/17 12/08/17 12/08/17 06:13 07:08 11:53 WBC 3.1 L RBC 5.13 Hgb 14.6 Hct 43.2 MCV 84.3 MCH 28.6 MCHC 33.9 RDW 13.7 Plt Count 233 MPV 9.0 Neut % (Auto) 44.1 L Lymph % (Auto) 48.5 H [place] % (Auto) 4.3 Eos % (Auto) 2.8 Baso % (Auto) 0.3 Neut # (Auto) 1.4 L Lymph # (Auto) 1.5 [place] # (Auto) 0.1 Eos # (Auto) 0.1 Baso # (Auto) 0.0 ESR PT INR APTT pO2 VBG pH VBG pCO2 VBG HCO3 VBG Total CO2 VBG O2 Sat (Calc) VBG Base Excess VBG Potassium Glucose Lactate FiO2 Crit Value Called To Crit Value Called By Crit Value Read Back Blood Gas Notified Time Sodium Potassium Chloride Carbon Dioxide Anion Gap BUN Creatinine Est GFR ( Amer) Est GFR (Non-Af Amer) POC Glucose (mg/dL) 243 H Random Glucose Hemoglobin A1c Calcium Magnesium Total Bilirubin AST ALT Alkaline Phosphatase Total Creatine Kinase 165 CK-MB (Mass) 2.37 Troponin I < 0.0120 C-Reactive Protein Total Protein Albumin Globulin Albumin/Globulin Ratio Triglycerides Cholesterol LDL Cholesterol Direct HDL Cholesterol Lipase Free T4 TSH 3rd Generation Venous Blood Potassium Urine Color Urine Clarity Urine pH Ur Specific [place] Urine Protein Urine Glucose (UA) Urine Ketones Urine Blood Urine Nitrate Urine Bilirubin Urine Urobilinogen Ur Leukocyte Esterase Urine WBC (Auto) Urine Opiates Screen Urine Methadone Screen Ur Barbiturates Screen Ur Phencyclidine Scrn Ur Amphetamines Screen U Benzodiazepines Scrn U Oth Cocaine Metabols U Cannabinoids Screen Alcohol, Quantitative 12/08/17 12/08/17 12:13 17:05 WBC RBC Hgb Hct MCV MCH MCHC RDW Plt Count MPV Neut % (Auto) Lymph % (Auto) [place] % (Auto) Eos % (Auto) Baso % (Auto) Neut # (Auto) Lymph # (Auto) [place] # (Auto) Eos # (Auto) Baso # (Auto) ESR PT INR APTT pO2 VBG pH VBG pCO2 VBG HCO3 VBG Total CO2 VBG O2 Sat (Calc) VBG Base Excess VBG Potassium Glucose Lactate FiO2 Crit Value Called To Crit Value Called By Crit Value Read Back Blood Gas Notified Time Sodium Potassium Chloride Carbon Dioxide Anion Gap BUN Creatinine Est GFR ( Amer) Est GFR (Non-Af Amer) POC Glucose (mg/dL) 221 H 339 H Random Glucose Hemoglobin A1c Calcium Magnesium Total Bilirubin AST ALT Alkaline Phosphatase Total Creatine Kinase CK-MB (Mass) Troponin I C-Reactive Protein Total Protein Albumin Globulin Albumin/Globulin Ratio Triglycerides Cholesterol LDL Cholesterol Direct HDL Cholesterol Lipase Free T4 TSH 3rd Generation Venous Blood Potassium Urine Color Urine Clarity Urine pH Ur Specific [place] Urine Protein Urine Glucose (UA) Urine Ketones Urine Blood Urine Nitrate Urine Bilirubin Urine Urobilinogen Ur Leukocyte Esterase Urine WBC (Auto) Urine Opiates Screen Urine Methadone Screen Ur Barbiturates Screen Ur Phencyclidine Scrn Ur Amphetamines Screen U Benzodiazepines Scrn U Oth Cocaine Metabols U Cannabinoids Screen Alcohol, Quantitative Assessment & Plan - Date & Time Date: 12/08/17 (I have seen and examined the patient. I agree with the findings and plan of care as documented by Dr. Stanford. Patient with gangrenous toe. Consult to podiatry. Antonioo and Tarsha. History of diabetes. NISS and accuchecks with strict controls to optimize healing. Chest pain. ROMIx3 with EKG. Aspirin and Statin. Monitor for acute changes.) Time: 19:03 Attending/Attestation - Attestation I have personally seen and examined this patient.: Yes I have fully participated in the care of the patient.: Yes I have reviewed all pertinent clinical information: Yes
[2017-12-08] MEDS ORDERED: Glucagon Recombinant 1 mg Inj IM PRN (01:23)
[2017-12-08] MEDS ORDERED: Dextrose 50% SYRINGE Inj (50 ml) IV PRN (01:23)
[2017-12-08] MEDS: Piperacillin/Tazobact 3.375 GM in Sodium Chloride 100 ML IVPB SCH ×3 (01:52→18:00)
[2017-12-08] MEDS: Sodium Chloride 0.9% 1,000 ML IV SCH ×4 (01:58→21:42)
[2017-12-08] MEDS: Vancomycin 1 gm/NS 200 ml 1 GM/200 ML BAG IVPB SCH (02:30)
[2017-12-08 03:00] LABS: HDL CHOLESTEROL 56 mg/dL (30-70)
[2017-12-08 03:11] LABS: LDL CHOLESTEROL 77 mg/dL (0-129)
[2017-12-08 03:30] LABS: CK-MB 2.16 ng/mL (0.0-3.38)
[2017-12-08 03:46] LABS: BARBITURATES, UR NEGATIVE (NEGATIVE); BENZODIAZEPINES, UR NEGATIVE (NEGATIVE); OPIATES, UR NEGATIVE (NEGATIVE); PHENCYCLIDINE, UR NEGATIVE (NEGATIVE)
[2017-12-08 07:36] LABS: BASO % 0.3 % (0.0-2.0); EOS # 0.1 K/uL (0.0-0.7); EOS % 2.8 % (0.0-4.0); HEMOGLOBIN 14.6 g/dL (12.0-18.0); LYMPH # 1.5 K/uL (1.0-4.3); LYMPH % 48.5 % (20.0-40.0); MEAN CELL VOLUME 84.3 fL (80.0-94.0); MEAN CORPUSCULAR HEMOGLOBIN 28.6 pg (27.0-31.0); MEAN CORPUSCULAR HGB CONC 33.9 g/dL (33.0-37.0); MONO # 0.1 K/uL (0.0-0.8); MONO % 4.3 % (0.0-10.0); NEUT # 1.4 K/uL (1.8-7.0); NEUT % 44.1 % (50.0-75.0); NRBC % 0.1 % (0.0-2.0); RBC 5.13 Mil/uL (4.40-5.90); RED CELL DISTRIBUTION WIDTH 13.7 % (11.5-14.5); WHITE BLOOD COUNT 3.1 K/uL (4.8-10.8)
[2017-12-08] MEDS: (Novolin R) Insulin Human Regular 100 units/ml vial SC SCH ×4 (07:48→21:41)
--- NOTE | 2017-12-08 07:59 | RAD ---
HISTORY: SOB COMPARISON: Chest x-ray 08/20/2017 TECHNIQUE: Chest one view . FINDINGS: LUNGS: No focal consolidation is seen. PLEURA: No pleural effusion is identified. CARDIOVASCULAR: Heart size is within normal limits. OSSEOUS STRUCTURES: Visualized osseous structures are unremarkable. VISUALIZED UPPER ABDOMEN: Unremarkable. OTHER FINDINGS: None. IMPRESSION: No acute cardiopulmonary process seen.
[2017-12-08] MEDS ORDERED: Simethicone 80 mg Chewtab PO ONE (08:09)
--- NOTE | 2017-12-08 08:46 | RAD ---
PROCEDURE: Right Foot Radiographs. HISTORY: r/o OM of 2nd digit. 2nd digit gangrenous ulcer COMPARISON: 10/26/2017 FINDINGS: BONES: Status post partial amputation of the great toe and complete amputation of the 2nd toe. There is cortical irregularity in the tuft of the distal phalanx of the 3rd digit. JOINTS: Normal. SOFT TISSUES: There is soft tissue swelling, irregularity and gas in the distal 3rd digit. OTHER FINDINGS: None. IMPRESSION: Findings are most compatible with gangrenous ulcer in the 3rd digit. Cortical irregularity in the tuft of the distal phalanx of the 3rd digit, osteomyelitis cannot be entirely excluded. If clinically indicated, MRI may be performed for definitive evaluation. Stable postsurgical changes in the great toe and status post amputation of the 2nd digit.
[2017-12-08] MEDS: Enoxaparin 40 mg Syringe SC SCH (10:18)
--- NOTE | 2017-12-08 10:30 | CP.PCM.PN ---
Subjective - Date & Time of Evaluation Date of Evaluation: 12/08/17 Time of Evaluation: 10:24 - Subjective Subjective: Podiatry Consult Note- Dr. Rodgers 57 yo male patient was seen at bedside this morning concerning right 3rd digit gangrene. Patient is admitted for chest pain, and has been following up in podiatry clinic with Dr. Rodgers for treatment of right foot. Xray reveals no sign of osteomyelitis; (report says cannot entirely ruleout OM). Will consider further studies including ESR, WBC, Bonescan. Patient denies of any pain to right foot at this time. Patient denies of any N/V/F/C or SOB associated with right foot wound. Objective - Vital Signs/Intake and Output Vital Signs (last 24 hours): Temp Pulse Resp BP Pulse Ox 97.6 F 60 18 130/80 97 12/08/17 07:10 12/08/17 07:10 12/08/17 07:10 12/08/17 07:10 12/08/17 07:10 Intake and Output: 12/08/17 12/08/17 06:59 18:59 Intake Total 1250 Output Total 200 Balance 1050 - Medications Medications: Current Medications Acetaminophen (Tylenol 325mg Tab) 650 mg PO Q6 PRN PRN Reason: Pain, moderate (4-7) Aspirin (Aspirin Chewable) 81 mg PO DAILY [facility] Last Admin: 12/08/17 10:17 Dose: 81 mg Calcium Carbonate (Tums) 500 mg PO BID [facility] Dextrose (Dextrose 50% Inj) 0 ml IV STAT PRN; Protocol PRN Reason: Hypoglycemia Protocol Dextrose (Glutose 15) 0 gm PO ONCE PRN; Protocol PRN Reason: Hypoglycemia Protocol Enoxaparin Sodium (Lovenox) 40 mg SC DAILY [facility] Last Admin: 12/08/17 10:18 Dose: 40 mg Glucagon (Glucagen Diagnostic Kit) 0 mg IM STAT PRN; Protocol PRN Reason: Hypoglycemia Protocol Sodium Chloride (Sodium Chloride 0.9%) 1,000 mls @ 100 mls/hr IV .Q10H [facility] Last Admin: 12/08/17 01:58 Dose: Not Given Piperacillin Sod/Tazobactam (Sod 3.375 gm/ Sodium Chloride) 100 mls @ 200 mls/ hr IVPB Q8H [facility] PRN Reason: Protocol Last Admin: 12/08/17 01:52 Dose: 200 mls/hr Vancomycin/Sodium Chloride (Vancomycin 1 Gm/Ns 200 Ml) 1 gm in 200 mls @ 167 mls/hr IVPB Q24H [facility] PRN Reason: Protocol Stop: 12/13/17 02:01 Last Admin: 12/08/17 02:30 Dose: 167 mls/hr Dextrose (Dextrose 5% In Water 1000 Ml) 1,000 mls @ 0 mls/hr IV .Q0M PRN; Protocol; Per Protocol PRN Reason: Hypoglycemia Protocol Insulin Human Regular (Novolin R) 0 unit SC ACHS [facility] PRN Reason: Protocol Last Admin: 12/08/17 07:48 Dose: 2 unit Losartan Potassium (Cozaar) 50 mg PO BID [facility] Last Admin: 12/08/17 10:17 Dose: 50 mg Pantoprazole Sodium (Protonix Inj) 40 mg IVP DAILY [facility] Last Admin: 12/08/17 10:17 Dose: 40 mg Rosuvastatin Calcium (Crestor) 2.5 mg PO HS [facility] - Labs Labs: 12/08/17 07:08 PT 10.1 SECONDS (9.7-12.2) 12/07/17 20:47 INR 0.9 12/07/17 20:47 APTT 33 SECONDS (21-34) 12/07/17 20:47 - Constitutional Appears: Well, Non-toxic, No Acute Distress - Head Exam Head Exam: ATRAUMATIC - Extremities Exam Additional comments: Lower extremity focused examination: DERM- Ulceration noted to the distal right 3rd digit plantarly measuring approximately 2 cm x 2 x .3 cm with necrotic skin to the distal aspect of the toe. Wound base is mainly granular, mal odor noted, no purulence drainage, mild serous drainage noted, no erythema, no streaking, no fluctanance or abscess appreciated. Dried lanced bullous lesions noted to lateral aspect 5ht digit measuring approximately 1 cm x 1 cm (no drainage no signs infection) VASC- pedal pulses fully palpable 2/4 bilaterally, skin temperature warm to cool from proximal knees to distal digits , cap refill < 3 sec to all digits, moderate edema noted to distal aspect right 3rd digit NEURO- gross sensation diminished and protective pedal sensation absent ORTHO- amputations of R hallux and R 2nd digit, no pain with palpation to ulceration site - Neurological Exam Neurological Exam: Alert, Awake, Oriented x3 - Psychiatric Exam Psychiatric exam: Normal Affect, Normal Mood - Skin Skin Exam: Normal Color, Warm Assessment and Plan - Assessment and Plan (Free Text) Assessment: 57 yo male patient with right 3rd digit distal ulceration with dry gangrene Plan: Patient seen and examined Discussed plan in details with attending Dr. Rodgers Labs, vitals, chart reviewed, afebrile WBC=3.1 X-rays ordered of right foot to r/o OM of the right 3rd digit- No sign of OM. Report reads cannot entirely ruleout Will wait for ESR Wound culture taken of right 3rd digit Betadine applied to ulceration, dressed with dsd, and kerlix Surgical shoe ordered To be WBAT in surgical shoes at all times bilaterally Will continue to follow while on floors Thank you for allowing us to take part in patient's care
[2017-12-08] MEDS: Calcium Carbonate 500 mg Chewable Antacid Tab PO SCH ×2 (10:38→19:37)
[2017-12-08 12:26] LABS: CK-MB 2.37 ng/mL (0.0-3.38)
--- NOTE | 2017-12-08 13:09 | CP.PCM.CON ---
History of Present Illness - History of Present Illness History of Present Illness: 57 years old with diabetes, peripheral vascular disease and multiple amputation. August 2017 he underwent a stress test and an echocardiogram was with no ischemia and normal ejection fraction at this time he's admitted through the emergency department with chest pain and a diabetic foot. The pain is reproducible with tenderness no acute EKG changes and negative enzymes. No OH no need for further cardiac workup at this time, seen by vascular and infectious disease treatment is in order Review of Systems - Constitutional Constitutional: Anorexia, Weakness - EENT Eyes: absent: Discharge Ears: absent: Ear Discharge Nose/Mouth/Throat: absent: Epistaxis - Cardiovascular Cardiovascular: Chest Pain. absent: Acrocyanosis, Edema, Palpitations, Syncope - Respiratory Respiratory: absent: Cough, Dyspnea, Hemoptysis - Gastrointestinal Gastrointestinal: absent: Abdominal Pain, Melena, Nausea, Vomiting - Genitourinary Genitourinary: absent: Change in Urinary Stream Past Patient History - Infectious Disease Hx of Infectious Diseases: None - Tetanus Immunizations Tetanus Immunization: Unknown - Past Medical History & Family History Past Medical History?: Yes - Past Social History Smoking Status: Former Smoker Chewing Tobacco Use: No Cigar Use: No Alcohol: > 2 Drinks/Day Drugs: Denies Home Situation {Lives}: With Family Domestic Violence: Negative - CARDIAC Hx Hypertension: Yes - PULMONARY Hx Respiratory Disorders: No - NEUROLOGICAL Hx Neurological Disorder: No - HEENT Hx HEENT Problems: No - RENAL Hx Chronic Kidney Disease: No - ENDOCRINE/METABOLIC Hx Endocrine Disorders: Yes Hx Diabetes Mellitus Type 2: Yes - HEMATOLOGICAL/ONCOLOGICAL Hx Blood Disorders: No - INTEGUMENTARY Hx Dermatological Problems: No - MUSCULOSKELETAL/RHEUMATOLOGICAL Hx Musculoskeletal Disorders: No Hx Falls: No - GASTROINTESTINAL Hx Gastritis: Yes - GENITOURINARY/GYNECOLOGICAL Hx Genitourinary Disorders: No - PSYCHIATRIC Hx Substance Use: No - SURGICAL HISTORY Hx Appendectomy: Yes - ANESTHESIA Hx Anesthesia: Yes Hx Anesthesia Reactions: No Meds Allergies/Adverse Reactions: Allergies Allergy/AdvReac Type Severity Reaction Status Date / Time No Known Allergies Allergy Verified 10/30/17 18:48 - Medications Medications: Current Medications Acetaminophen (Tylenol 325mg Tab) 650 mg PO Q6 PRN PRN Reason: Pain, moderate (4-7) Last Admin: 12/08/17 10:27 Dose: 650 mg Aspirin (Aspirin Chewable) 81 mg PO DAILY [facility] Last Admin: 12/08/17 10:17 Dose: 81 mg Calcium Carbonate (Tums) 500 mg PO BID [facility] Last Admin: 12/08/17 10:38 Dose: 500 mg Dextrose (Dextrose 50% Inj) 0 ml IV STAT PRN; Protocol PRN Reason: Hypoglycemia Protocol Dextrose (Glutose 15) 0 gm PO ONCE PRN; Protocol PRN Reason: Hypoglycemia Protocol Enoxaparin Sodium (Lovenox) 40 mg SC DAILY [facility] Last Admin: 12/08/17 10:18 Dose: 40 mg Glucagon (Glucagen Diagnostic Kit) 0 mg IM STAT PRN; Protocol PRN Reason: Hypoglycemia Protocol Sodium Chloride (Sodium Chloride 0.9%) 1,000 mls @ 100 mls/hr IV .Q10H [facility] Last Admin: 12/08/17 10:45 Dose: 100 mls/hr Piperacillin Sod/Tazobactam (Sod 3.375 gm/ Sodium Chloride) 100 mls @ 200 mls/ hr IVPB Q8H [facility] PRN Reason: Protocol Last Admin: 12/08/17 09:00 Dose: 200 mls/hr Vancomycin/Sodium Chloride (Vancomycin 1 Gm/Ns 200 Ml) 1 gm in 200 mls @ 167 mls/hr IVPB Q24H [facility] PRN Reason: Protocol Stop: 12/13/17 02:01 Last Admin: 12/08/17 02:30 Dose: 167 mls/hr Dextrose (Dextrose 5% In Water 1000 Ml) 1,000 mls @ 0 mls/hr IV .Q0M PRN; Protocol; Per Protocol PRN Reason: Hypoglycemia Protocol Insulin Human Regular (Novolin R) 0 unit SC ACHS [facility] PRN Reason: Protocol Last Admin: 12/08/17 12:30 Dose: 2 unit Losartan Potassium (Cozaar) 50 mg PO BID [facility] Last Admin: 12/08/17 10:17 Dose: 50 mg Pantoprazole Sodium (Protonix Inj) 40 mg IVP DAILY [facility] Last Admin: 12/08/17 10:17 Dose: 40 mg Rosuvastatin Calcium (Crestor) 2.5 mg PO HS [facility] Physical Exam - Constitutional Appears: Non-toxic - Head Exam Head Exam: ATRAUMATIC - Eye Exam Eye Exam: EOMI - ENT Exam ENT Exam: Mucous Membranes Moist - Neck Exam Neck exam: Negative for: Lymphadenopathy, Thyromegaly - Respiratory Exam Respiratory Exam: Clear to Auscultation Bilateral. absent: Rales - Cardiovascular Exam Cardiovascular Exam: REGULAR RHYTHM, Systolic Murmur - GI/Abdominal Exam GI & Abdominal Exam: Normal Bowel Sounds. absent: Organomegaly - Rectal Exam Rectal Exam: Deferred - Extremities Exam Extremities exam: Positive for: normal inspection. Negative for: calf tenderness - Neurological Exam Neurological exam: Alert, Oriented x3 - Psychiatric Exam Psychiatric exam: Normal Mood - Skin Skin Exam: Dry Results - Vital Signs Recent Vital Signs: Last Vital Signs Temp 97.6 F 12/08/17 07:10 Pulse 60 12/08/17 07:10 Resp 18 12/08/17 07:10 BP 130/80 12/08/17 07:10 Pulse Ox 97 12/08/17 07:10 - Labs Result Diagrams: 12/08/17 07:08 12/07/17 20:47 Labs: Laboratory Results - last 24 hr 12/07/17 12/07/17 12/07/17 20:29 20:47 20:47 WBC 4.9 RBC 5.01 Hgb 14.4 Hct 42.9 MCV 85.8 MCH 28.7 MCHC 33.4 RDW 13.8 Plt Count 278 MPV 8.9 Neut % (Auto) 46.2 L Lymph % (Auto) 42.1 H [place] % (Auto) 8.1 Eos % (Auto) 2.6 Baso % (Auto) 1.0 Neut # (Auto) 2.3 Lymph # (Auto) 2.1 [place] # (Auto) 0.4 Eos # (Auto) 0.1 Baso # (Auto) 0.0 ESR PT 10.1 INR 0.9 APTT 33 pO2 VBG pH VBG pCO2 VBG HCO3 VBG Total CO2 VBG O2 Sat (Calc) VBG Base Excess VBG Potassium Glucose Lactate FiO2 Crit Value Called To Crit Value Called By Crit Value Read Back Blood Gas Notified Time Sodium Potassium Chloride Carbon Dioxide Anion Gap BUN Creatinine Est GFR ( Amer) Est GFR (Non-Af Amer) POC Glucose (mg/dL) > 500 H* Random Glucose Hemoglobin A1c Calcium Magnesium Total Bilirubin AST ALT Alkaline Phosphatase Total Creatine Kinase CK-MB (Mass) Troponin I C-Reactive Protein Total Protein Albumin Globulin Albumin/Globulin Ratio Triglycerides Cholesterol LDL Cholesterol Direct HDL Cholesterol Lipase Free T4 TSH 3rd Generation Venous Blood Potassium Urine Color Urine Clarity Urine pH Ur Specific [place] Urine Protein Urine Glucose (UA) Urine Ketones Urine Blood Urine Nitrate Urine Bilirubin Urine Urobilinogen Ur Leukocyte Esterase Urine WBC (Auto) Urine Opiates Screen Urine Methadone Screen Ur Barbiturates Screen Ur Phencyclidine Scrn Ur Amphetamines Screen U Benzodiazepines Scrn U Oth Cocaine Metabols U Cannabinoids Screen Alcohol, Quantitative 12/07/17 12/07/17 12/07/17 20:47 20:50 21:27 WBC RBC Hgb Hct MCV MCH MCHC RDW Plt Count MPV Neut % (Auto) Lymph % (Auto) [place] % (Auto) Eos % (Auto) Baso % (Auto) Neut # (Auto) Lymph # (Auto) [place] # (Auto) Eos # (Auto) Baso # (Auto) ESR PT INR APTT pO2 22 L VBG pH 7.33 VBG pCO2 50 VBG HCO3 23.0 VBG Total CO2 27.9 VBG O2 Sat (Calc) 40.2 VBG Base Excess -0.2 L VBG Potassium 4.2 Glucose 510 H* D Lactate 1.6 FiO2 21.0 Crit Value Called To Dr lopez Crit Value Called By [facility] Crit Value Read Back Y Blood Gas Notified Time 2054 Sodium 133 136.0 Potassium 4.8 Chloride 97 L 102.0 Carbon Dioxide 27 Anion Gap 15 BUN 35 H Creatinine 1.5 Est GFR ( Amer) 59 Est GFR (Non-Af Amer) 48 POC Glucose (mg/dL) Random Glucose 538 H* D Hemoglobin A1c Calcium 8.2 L Magnesium 2.3 Total Bilirubin 1.2 AST 29 ALT 19 L D Alkaline Phosphatase 150 H D Total Creatine Kinase CK-MB (Mass) Troponin I 0.0170 C-Reactive Protein Total Protein 6.9 Albumin 3.7 Globulin 3.2 Albumin/Globulin Ratio 1.2 Triglycerides Cholesterol LDL Cholesterol Direct HDL Cholesterol Lipase < 10 L Free T4 TSH 3rd Generation Venous Blood Potassium 4.2 Urine Color Yellow Urine Clarity Clear Urine pH 5.0 Ur Specific [place] 1.027 Urine Protein Negative Urine Glucose (UA) 3+ H Urine Ketones Negative Urine Blood Negative Urine Nitrate Negative Urine Bilirubin Negative Urine Urobilinogen Normal Ur Leukocyte Esterase Neg Urine WBC (Auto) 1 Urine Opiates Screen Urine Methadone Screen Ur Barbiturates Screen Ur Phencyclidine Scrn Ur Amphetamines Screen U Benzodiazepines Scrn U Oth Cocaine Metabols U Cannabinoids Screen Alcohol, Quantitative 12/07/17 12/07/17 12/08/17 23:44 23:44 00:10 WBC RBC Hgb Hct MCV MCH MCHC RDW Plt Count MPV Neut % (Auto) Lymph % (Auto) [place] % (Auto) Eos % (Auto) Baso % (Auto) Neut # (Auto) Lymph # (Auto) [place] # (Auto) Eos # (Auto) Baso # (Auto) ESR 7 PT INR APTT pO2 VBG pH VBG pCO2 VBG HCO3 VBG Total CO2 VBG O2 Sat (Calc) VBG Base Excess VBG Potassium Glucose Lactate FiO2 Crit Value Called To Crit Value Called By Crit Value Read Back Blood Gas Notified Time Sodium Potassium Chloride Carbon Dioxide Anion Gap BUN Creatinine Est GFR ( Amer) Est GFR (Non-Af Amer) POC Glucose (mg/dL) 358 H Random Glucose Hemoglobin A1c Calcium Magnesium Total Bilirubin AST ALT Alkaline Phosphatase Total Creatine Kinase CK-MB (Mass) Troponin I C-Reactive Protein 5.80 Total Protein Albumin Globulin Albumin/Globulin Ratio Triglycerides Cholesterol LDL Cholesterol Direct HDL Cholesterol Lipase Free T4 TSH 3rd Generation Venous Blood Potassium Urine Color Urine Clarity Urine pH Ur Specific [place] Urine Protein Urine Glucose (UA) Urine Ketones Urine Blood Urine Nitrate Urine Bilirubin Urine Urobilinogen Ur Leukocyte Esterase Urine WBC (Auto) Urine Opiates Screen Urine Methadone Screen Ur Barbiturates Screen Ur Phencyclidine Scrn Ur Amphetamines Screen U Benzodiazepines Scrn U Oth Cocaine Metabols U Cannabinoids Screen Alcohol, Quantitative 12/08/17 12/08/17 12/08/17 00:42 02:48 03:23 WBC RBC Hgb Hct MCV MCH MCHC RDW Plt Count MPV Neut % (Auto) Lymph % (Auto) [place] % (Auto) Eos % (Auto) Baso % (Auto) Neut # (Auto) Lymph # (Auto) [place] # (Auto) Eos # (Auto) Baso # (Auto) ESR PT INR APTT pO2 VBG pH VBG pCO2 VBG HCO3 VBG Total CO2 VBG O2 Sat (Calc) VBG Base Excess VBG Potassium Glucose Lactate FiO2 Crit Value Called To Crit Value Called By Crit Value Read Back Blood Gas Notified Time Sodium Potassium Chloride Carbon Dioxide Anion Gap BUN Creatinine Est GFR ( Amer) Est GFR (Non-Af Amer) POC Glucose (mg/dL) 313 H Random Glucose Hemoglobin A1c 9.3 H Calcium Magnesium Total Bilirubin AST ALT Alkaline Phosphatase Total Creatine Kinase 172 H CK-MB (Mass) 2.16 Troponin I < 0.0120 C-Reactive Protein Total Protein Albumin Globulin Albumin/Globulin Ratio Triglycerides 191 H D Cholesterol 174 LDL Cholesterol Direct 77 HDL Cholesterol 56 Lipase Free T4 TSH 3rd Generation 10.90 H Venous Blood Potassium Urine Color Urine Clarity Urine pH Ur Specific [place] Urine Protein Urine Glucose (UA) Urine Ketones Urine Blood Urine Nitrate Urine Bilirubin Urine Urobilinogen Ur Leukocyte Esterase Urine WBC (Auto) Urine Opiates Screen Urine Methadone Screen Ur Barbiturates Screen Ur Phencyclidine Scrn Ur Amphetamines Screen U Benzodiazepines Scrn U Oth Cocaine Metabols U Cannabinoids Screen Alcohol, Quantitative 12/08/17 12/08/17 12/08/17 03:23 03:27 03:27 WBC RBC Hgb Hct MCV MCH MCHC RDW Plt Count MPV Neut % (Auto) Lymph % (Auto) [place] % (Auto) Eos % (Auto) Baso % (Auto) Neut # (Auto) Lymph # (Auto) [place] # (Auto) Eos # (Auto) Baso # (Auto) ESR PT INR APTT pO2 VBG pH VBG pCO2 VBG HCO3 VBG Total CO2 VBG O2 Sat (Calc) VBG Base Excess VBG Potassium Glucose Lactate FiO2 Crit Value Called To Crit Value Called By Crit Value Read Back Blood Gas Notified Time Sodium Potassium Chloride Carbon Dioxide Anion Gap BUN Creatinine Est GFR ( Amer) Est GFR (Non-Af Amer) POC Glucose (mg/dL) Random Glucose Hemoglobin A1c Calcium Magnesium Total Bilirubin AST ALT Alkaline Phosphatase Total Creatine Kinase CK-MB (Mass) Troponin I C-Reactive Protein Total Protein Albumin Globulin Albumin/Globulin Ratio Triglycerides Cholesterol LDL Cholesterol Direct HDL Cholesterol Lipase Free T4 1.09 TSH 3rd Generation Venous Blood Potassium Urine Color Urine Clarity Urine pH Ur Specific [place] Urine Protein Urine Glucose (UA) Urine Ketones Urine Blood Urine Nitrate Urine Bilirubin Urine Urobilinogen Ur Leukocyte Esterase Urine WBC (Auto) Urine Opiates Screen Negative Urine Methadone Screen Negative Ur Barbiturates Screen Negative Ur Phencyclidine Scrn Negative Ur Amphetamines Screen Negative U Benzodiazepines Scrn Negative U Oth Cocaine Metabols Negative U Cannabinoids Screen Negative Alcohol, Quantitative < 10 12/08/17 12/08/17 12/08/17 06:13 07:08 11:53 WBC 3.1 L RBC 5.13 Hgb 14.6 Hct 43.2 MCV 84.3 MCH 28.6 MCHC 33.9 RDW 13.7 Plt Count 233 MPV 9.0 Neut % (Auto) 44.1 L Lymph % (Auto) 48.5 H [place] % (Auto) 4.3 Eos % (Auto) 2.8 Baso % (Auto) 0.3 Neut # (Auto) 1.4 L Lymph # (Auto) 1.5 [place] # (Auto) 0.1 Eos # (Auto) 0.1 Baso # (Auto) 0.0 ESR PT INR APTT pO2 VBG pH VBG pCO2 VBG HCO3 VBG Total CO2 VBG O2 Sat (Calc) VBG Base Excess VBG Potassium Glucose Lactate FiO2 Crit Value Called To Crit Value Called By Crit Value Read Back Blood Gas Notified Time Sodium Potassium Chloride Carbon Dioxide Anion Gap BUN Creatinine Est GFR ( Amer) Est GFR (Non-Af Amer) POC Glucose (mg/dL) 243 H Random Glucose Hemoglobin A1c Calcium Magnesium Total Bilirubin AST ALT Alkaline Phosphatase Total Creatine Kinase 165 CK-MB (Mass) 2.37 Troponin I < 0.0120 C-Reactive Protein Total Protein Albumin Globulin Albumin/Globulin Ratio Triglycerides Cholesterol LDL Cholesterol Direct HDL Cholesterol Lipase Free T4 TSH 3rd Generation Venous Blood Potassium Urine Color Urine Clarity Urine pH Ur Specific [place] Urine Protein Urine Glucose (UA) Urine Ketones Urine Blood Urine Nitrate Urine Bilirubin Urine Urobilinogen Ur Leukocyte Esterase Urine WBC (Auto) Urine Opiates Screen Urine Methadone Screen Ur Barbiturates Screen Ur Phencyclidine Scrn Ur Amphetamines Screen U Benzodiazepines Scrn U Oth Cocaine Metabols U Cannabinoids Screen Alcohol, Quantitative 12/08/17 12:13 WBC RBC Hgb Hct MCV MCH MCHC RDW Plt Count MPV Neut % (Auto) Lymph % (Auto) [place] % (Auto) Eos % (Auto) Baso % (Auto) Neut # (Auto) Lymph # (Auto) [place] # (Auto) Eos # (Auto) Baso # (Auto) ESR PT INR APTT pO2 VBG pH VBG pCO2 VBG HCO3 VBG Total CO2 VBG O2 Sat (Calc) VBG Base Excess VBG Potassium Glucose Lactate FiO2 Crit Value Called To Crit Value Called By Crit Value Read Back Blood Gas Notified Time Sodium Potassium Chloride Carbon Dioxide Anion Gap BUN Creatinine Est GFR ( Amer) Est GFR (Non-Af Amer) POC Glucose (mg/dL) 221 H Random Glucose Hemoglobin A1c Calcium Magnesium Total Bilirubin AST ALT Alkaline Phosphatase Total Creatine Kinase CK-MB (Mass) Troponin I C-Reactive Protein Total Protein Albumin Globulin Albumin/Globulin Ratio Triglycerides Cholesterol LDL Cholesterol Direct HDL Cholesterol Lipase Free T4 TSH 3rd Generation Venous Blood Potassium Urine Color Urine Clarity Urine pH Ur Specific [place] Urine Protein Urine Glucose (UA) Urine Ketones Urine Blood Urine Nitrate Urine Bilirubin Urine Urobilinogen Ur Leukocyte Esterase Urine WBC (Auto) Urine Opiates Screen Urine Methadone Screen Ur Barbiturates Screen Ur Phencyclidine Scrn Ur Amphetamines Screen U Benzodiazepines Scrn U Oth Cocaine Metabols U Cannabinoids Screen Alcohol, Quantitative Assessment & Plan (1) Chest pain Status: Acute Comment: Although with risk for coronary artery disease however stress test in August was negative for ischemia and currently the pain is rather with tenderness, no need for further cardiac workup at this time, risk factor management should be optimized (2) 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
--- NOTE | 2017-12-08 14:59 | MRI ---
MRI right forefoot History: Ulcer. Osteomyelitis. Comparison: None available. Technique: Multi-echo multiplanar sequences were performed through the right forefoot without the use of intravenous contrast. Findings: Signal abnormality noted at the 3rd middle and distal phalanges with patchy decreased T1 signal and patchy increased STIR signal concerning for acute and or developing acute osteomyelitic changes. Soft tissue ulceration noted at that level. Resection of the 1st digit to the level of the midshaft of the 1st proximal phalanx. Signal abnormality noted within the end of the 1st proximal phalanx at that level demonstrating decreased T1 signal with increased STIR signal which may be the sequelae of post surgical changes however residual and or developing acute osteomyelitic changes at that level cannot be excluded. Clinical correlation. Moderate hallux valgus deformity with degenerative changes noted at the 1st MTS joint space. Mild nonspecific reactive bone marrow edema noted at the base of the 4th middle phalanx. Clinical correlation. Prominent degenerative changes noted at the dorsal aspect of the midfoot as well as at the dorsal aspect of the articulation of the base of the 3rd metatarsal and middle cuneiform bones. Mild increased signal noted at the visualized Lisfranc ligament suggestive for a low grade sprain and or mild partial tearing. Clinical correlation. Minimal nonspecific reactive edema at the lateral aspect of the navicular bone. Resection of the 2nd digit to the metatarsal head. Minimal reactive edema at the base of the 4th metatarsal bone. Impression: 1. Signal abnormality noted at the 3rd middle and distal phalanges with patchy decreased T1 signal and patchy increased STIR signal concerning for acute and or developing acute osteomyelitic changes. Soft tissue ulceration noted at that level. 2. Resection of the 1st digit to the level of the midshaft of the 1st proximal phalanx. Signal abnormality noted within the end of the 1st proximal phalanx at that level demonstrating decreased T1 signal with increased STIR signal which may be the sequelae of post surgical changes however residual and or developing acute osteomyelitic changes at that level cannot be excluded. Clinical correlation. 3. Moderate hallux valgus deformity with degenerative changes noted at the 1st MTS joint space. 4. Mild nonspecific reactive bone marrow edema noted at the base of the 4th middle phalanx. Clinical correlation. 5. Prominent degenerative changes noted at the dorsal aspect of the midfoot as well as at the dorsal aspect of the articulation of the base of the 3rd metatarsal and middle cuneiform bones. 6. Mild increased signal noted at the visualized Lisfranc ligament suggestive for a low grade sprain and or mild partial tearing. Clinical correlation. 7. Minimal nonspecific reactive edema at the lateral aspect of the navicular bone. 8. Resection of the 2nd digit to the metatarsal head. 9. Minimal reactive edema at the base of the 4th metatarsal bone.
--- NOTE | 2017-12-08 15:51 | CP.PCM.PN ---
<Sara Ureña - Last Filed: 12/08/17 15:48> Subjective - Date & Time of Evaluation Date of Evaluation: 12/08/17 Time of Evaluation: 07:45 - Subjective Subjective: Progress Note Patient seen and examined at bedside. Patient states he feels bloated and that he's eructating a lot. Simethicone was given. Patient states his squeezing chest pain is gone and he intermittently feels numbness of his right arm without loss of motor function . Patient states he is not feeling numbness or tingling at the moment. Patient denies fever, chills, nausea, vomiting, diarrhea. Patient's last BM was today and was normal. Objective - Vital Signs/Intake and Output Vital Signs (last 24 hours): Temp Pulse Resp BP Pulse Ox 97.6 F 60 18 130/80 97 12/08/17 07:10 12/08/17 07:10 12/08/17 07:10 12/08/17 07:10 12/08/17 07:10 Intake and Output: 12/08/17 12/08/17 06:59 18:59 Intake Total 1250 Output Total 200 Balance 1050 - Medications Medications: Current Medications Acetaminophen (Tylenol 325mg Tab) 650 mg PO Q6 PRN PRN Reason: Pain, moderate (4-7) Last Admin: 12/08/17 10:27 Dose: 650 mg Aspirin (Aspirin Chewable) 81 mg PO DAILY [facility] Last Admin: 12/08/17 10:17 Dose: 81 mg Calcium Carbonate (Tums) 500 mg PO BID [facility] Last Admin: 12/08/17 10:38 Dose: 500 mg Dextrose (Dextrose 50% Inj) 0 ml IV STAT PRN; Protocol PRN Reason: Hypoglycemia Protocol Dextrose (Glutose 15) 0 gm PO ONCE PRN; Protocol PRN Reason: Hypoglycemia Protocol Enoxaparin Sodium (Lovenox) 40 mg SC DAILY [facility] Last Admin: 12/08/17 10:18 Dose: 40 mg Glucagon (Glucagen Diagnostic Kit) 0 mg IM STAT PRN; Protocol PRN Reason: Hypoglycemia Protocol Sodium Chloride (Sodium Chloride 0.9%) 1,000 mls @ 100 mls/hr IV .Q10H [facility] Last Admin: 12/08/17 10:45 Dose: 100 mls/hr Piperacillin Sod/Tazobactam (Sod 3.375 gm/ Sodium Chloride) 100 mls @ 200 mls/ hr IVPB Q8H [facility] PRN Reason: Protocol Last Admin: 12/08/17 09:00 Dose: 200 mls/hr Vancomycin/Sodium Chloride (Vancomycin 1 Gm/Ns 200 Ml) 1 gm in 200 mls @ 167 mls/hr IVPB Q24H [facility] PRN Reason: Protocol Stop: 12/13/17 02:01 Last Admin: 12/08/17 02:30 Dose: 167 mls/hr Dextrose (Dextrose 5% In Water 1000 Ml) 1,000 mls @ 0 mls/hr IV .Q0M PRN; Protocol; Per Protocol PRN Reason: Hypoglycemia Protocol Insulin Human Regular (Novolin R) 0 unit SC ACHS [facility] PRN Reason: Protocol Last Admin: 12/08/17 12:30 Dose: 2 unit Losartan Potassium (Cozaar) 50 mg PO BID [facility] Last Admin: 12/08/17 10:17 Dose: 50 mg Pantoprazole Sodium (Protonix Inj) 40 mg IVP DAILY [facility] Last Admin: 12/08/17 10:17 Dose: 40 mg Rosuvastatin Calcium (Crestor) 2.5 mg PO HS [facility] - Labs Labs: 12/08/17 07:08 PT 10.1 SECONDS (9.7-12.2) 12/07/17 20:47 INR 0.9 12/07/17 20:47 APTT 33 SECONDS (21-34) 12/07/17 20:47 - Constitutional Appears: No Acute Distress - Head Exam Head Exam: ATRAUMATIC, NORMAL INSPECTION, NORMOCEPHALIC - Eye Exam Eye Exam: EOMI, Normal appearance Pupil Exam: NORMAL ACCOMODATION, PERRL - ENT Exam ENT Exam: Mucous Membranes Moist - Respiratory Exam Respiratory Exam: Clear to Ausculation Bilateral, NORMAL BREATHING PATTERN - Cardiovascular Exam Cardiovascular Exam: REGULAR RHYTHM, +S1, +S2. absent: Bradycardia, Tachycardia - GI/Abdominal Exam GI & Abdominal Exam: Soft, Normal Bowel Sounds. absent: Tenderness - Extremities Exam Extremities Exam: Full ROM, Normal Capillary Refill. absent: Pedal Edema Additional comments: tight gangrenous toe, dressings in place with beta-dine. No purulence noted. - Neurological Exam Neurological Exam: Alert, CN II-XII Intact, Oriented x3 - Psychiatric Exam Psychiatric exam: Normal Affect, Normal Mood - Skin Skin Exam: Dry, Intact, Normal Color, Warm Assessment and Plan - Assessment and Plan (Free Text) Assessment: 57M presents with Chest pain, intermittent right arm numbness, bloating, eructation. Chest pain ACS r/o [place] negative x 3 Cardiology: Dr. Gooden dyspepsia Patient complains of eructation, vomiting, smoking history GI Consult: Dr. Omar shelton protonix Tums BID Pain Tylenol 650 mg PO Q6H PRN ASA 81 mg PO QD HTN Cozaar 50mg PO BID DM Insulin SS Hypoglycemic Protocol Right gangrenous toe f/u blood and wound cultures Podiatry Consult: Dr. Rodgers Vancomycin 1 gm IVPB Q24H Zosyn 3.375gm IVPB Q8H Prophylaxis Lovenox 40mg SC QD Protonix 40mg IVP QD discussed with Dr. Munroe <Cecille Munroe V - Last Filed: 12/09/17 09:12> Objective - Vital Signs/Intake and Output Vital Signs (last 24 hours): Temp Pulse Resp BP Pulse Ox 98.2 F 60 18 145/89 98 12/08/17 15:45 12/08/17 15:45 12/08/17 15:45 12/08/17 15:45 12/08/17 15:45 Intake and Output: 12/08/17 12/09/17 18:59 06:59 Output Total 500 Balance -500 - Medications Medications: Current Medications Acetaminophen (Tylenol 325mg Tab) 650 mg PO Q6 PRN PRN Reason: Pain, moderate (4-7) Last Admin: 12/08/17 10:27 Dose: 650 mg Aspirin (Aspirin Chewable) 81 mg PO DAILY [facility] Last Admin: 12/08/17 10:17 Dose: 81 mg Calcium Carbonate (Tums) 500 mg PO BID [facility] Last Admin: 12/08/17 19:37 Dose: 500 mg Dextrose (Dextrose 50% Inj) 0 ml IV STAT PRN; Protocol PRN Reason: Hypoglycemia Protocol Dextrose (Glutose 15) 0 gm PO ONCE PRN; Protocol PRN Reason: Hypoglycemia Protocol Enoxaparin Sodium (Lovenox) 40 mg SC DAILY [facility] Last Admin: 12/08/17 10:18 Dose: 40 mg Glucagon (Glucagen Diagnostic Kit) 0 mg IM STAT PRN; Protocol PRN Reason: Hypoglycemia Protocol Sodium Chloride (Sodium Chloride 0.9%) 1,000 mls @ 100 mls/hr IV .Q10H [facility] Last Admin: 12/08/17 21:42 Dose: Not Given Piperacillin Sod/Tazobactam (Sod 3.375 gm/ Sodium Chloride) 100 mls @ 200 mls/ hr IVPB Q8H [facility] PRN Reason: Protocol Last Admin: 12/08/17 18:00 Dose: 200 mls/hr Vancomycin/Sodium Chloride (Vancomycin 1 Gm/Ns 200 Ml) 1 gm in 200 mls @ 167 mls/hr IVPB Q24H [facility] PRN Reason: Protocol Stop: 12/13/17 02:01 Last Admin: 12/08/17 02:30 Dose: 167 mls/hr Dextrose (Dextrose 5% In Water 1000 Ml) 1,000 mls @ 0 mls/hr IV .Q0M PRN; Protocol; Per Protocol PRN Reason: Hypoglycemia Protocol Insulin Human Regular (Novolin R) 0 unit SC ACHS [facility] PRN Reason: Protocol Last Admin: 12/08/17 21:41 Dose: Not Given Losartan Potassium (Cozaar) 50 mg PO BID [facility] Last Admin: 12/08/17 18:20 Dose: 50 mg Ondansetron HCl (Zofran Inj) 4 mg IVP DAILY@ONCE PRN PRN Reason: vomitting Pantoprazole Sodium (Protonix Inj) 40 mg IVP DAILY [facility] Last Admin: 12/08/17 10:17 Dose: 40 mg Rosuvastatin Calcium (Crestor) 2.5 mg PO HS [facility] Last Admin: 12/08/17 21:37 Dose: 2.5 mg - Labs Labs: 12/08/17 07:08 PT 10.1 SECONDS (9.7-12.2) 12/07/17 20:47 INR 0.9 12/07/17 20:47 APTT 33 SECONDS (21-34) 12/07/17 20:47 Attending/Attestation - Attestation I have personally seen and examined this patient.: Yes I have fully participated in the care of the patient.: Yes I have reviewed all pertinent clinical information, including history, physical exam and plan: Yes Notes (Text): This is late computer entry for 12/08/17. Patient seen, examined and case discussed with day-time resident. Patient seen this afternoon during rounds with the resident. Patient with known history of diabetes, insulin-dependent, uncontrolled, prior history of toe amputations. Patient was seen by me in his previous hospitalization. Patient's ROMIs were negative and had stress test earlier this year which was normal. Cardiology came and seen patient. Consulted GI, patient reports persistent hiccup/wretching/dysphagia to solids for the past 3 months. Patient reports he has had colonoscopy about 2 years ago which he reports is normal. Patient reports prior history of smoking, but quit 5 years ago given his toe amputations. Patient is on IV abx. Patient is going for MRI to evaluate for osteomyelitis. Discussed with podiatry, requesting for arterial doppers.
--- NOTE | 2017-12-08 16:23 | CP.PCM.CON ---
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 Patient reports that in the last week the 3rd digit appears more black. Patient reports that about 2 months ago, there were blisters on the hallux, 3rd and 5th digit after wearing shoes. MRI and vascular work up pending cultures sent iV antibiotics ordered . 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), b/l excision of bone b/l hallux, appendectomy, right hallux palatal ampuation SH: former smoker 1 PPD (x30 years) quit 6 years ago, admits to social ETOH, denies recent illicit drug use ALL: NKDA MEDS: see MAR (reviewed) Review of Systems - Review of Systems All systems: reviewed and no additional remarkable complaints except - Constitutional Constitutional: absent: As Per HPI, Anorexia, Chills, Daytime Sleepiness, Excessive Sweating, Fatigue, Fever, Frequent Falls, Headache, Increased Appetite , Lethargy, Malaise, Night Sweats, Snoring, Sleep Apnea, Weight Gain, Weight Loss, Weakness, Other - EENT Eyes: absent: As Per HPI, Blind Spots, Blurred Vision, Change in Vision, Decreased Night Vision, Diplopia, Discharge, Dry Eye, Exophthalmos, Floaters, Irritation, Itchy Eyes, Loss of Peripheral Vision, Pain, Photophobia, Requires Corrective Lenses, Sees Flashes, Spots in Vision, Tunnel Vision, Other Visual Disturbances, Loss of Vision, Other Ears: absent: As Per HPI, Decreased Hearing, Ear Discharge, Ear Pain, Tinnitus, Abnormal Hearing, Disequilibrium, Dizziness, Other Nose/Mouth/Throat: absent: As Per HPI, Epistaxis, Nasal Congestion, Nasal Discharge, Nasal Obstruction, Nasal Trauma, Nose Pain, Post Nasal Drip, Sinus Pain, Sinus Pressure, Bleeding Gums, Change in Voice, Dental Pain, Dry Mouth, Dysphagia, Halitosis, Hoarsness, Lip Swelling, Mouth Lesions, Mouth Pain, Odynophagia, Sore Throat, Throat Swelling, Tongue Swelling, Facial Pain, Neck Pain, Neck Mass, Other - Cardiovascular Cardiovascular: absent: As Per HPI, Acrocyanosis, Chest Pain, Chest Pain at Rest , Chest Pain with Activity, Claudication, Diaphoresis, Dyspnea, Dyspnea on Exertion, Edema, Irregular Heart Rhythm, Pain Radiating to Arm/Neck/Jaw, Leg Edema, Leg Ulcers, Lightheadedness, Orthopnea, Palpitations, Paroxysmal Nocturnal Dyspnea, Pedal Edema, Radiating Pain, Rapid Heart Rate, Slow Heart Rate, Syncope, Other - Respiratory Respiratory: absent: As Per HPI, Cough, Dyspnea, Hemoptysis, Dyspnea on Exertion , Wheezing, Snoring, Stridor, Pain on Inspiration, Chest Congestion, Excessive Mucous Production, Change in Mucous Color, Pain with Coughing, Other - Gastrointestinal Gastrointestinal: absent: As Per HPI, Abdominal Pain, Belching, Bloating, Change in Bowel Habits, Change in Stool Character, Coffee Ground Emesis, Constipation, Cramping, Diarrhea, Dyspepsia, Dysphagia, Early Satiety, Excessive Flatus, Fecal Incontinence, Heartburn, Hematemesis, Hematochezia, Loose Stools, Melena, Nausea, Odynophagia, Temesmus, Vomiting, Other - Genitourinary Genitourinary: absent: As Per HPI, Change in Urinary Stream, Difficulty Urinating, Dysuria, Flank Pain, Hematuria, Pyuria, Nocturia, Urinary Incontinence, Urinary Frequency, Urinary Hesitance, Urinary Urgency, Voiding Freq/Small Amts, Freq UTI, Hx Renal/Bladder Calculi, Hx /Renal Surgery, Bladder Distension, Other - Musculoskeletal Musculoskeletal: As Per HPI - Integumentary Integumentary: As Per HPI, Skin Pain, Wounds - Neurological Neurological: absent: As Per HPI, Abnormal Gait, Abnormal Hearing, Abnormal Movements, Abnormal Speech, Behavioral Changes, Burning Sensations, Confusion, Convulsions, Disequilibrium, Dizziness, Numbness, Focal Weakness, Frequent Falls , Headaches, Lack of Coordination, Loss of Vision, Memory Loss, Paresthesias, Radicular Pain, Restless Legs, Sensory Deficit, Syncope, Tingling, Tremor, Vertigo, Weakness, Other Visual Disturbances, Other - Psychiatric Psychiatric: absent: As Per HPI, Abnormal Sleep Pattern, Anhedonia, Anxiety, Auditory Hallucinations, Behavioral Changes, Change in Appetite, Change in Libido, Confusion, Depression, Difficulty Concentrating, Hallucinations, Homicidal Ideation, Hopelessness, Irritability, Memory Loss, Mood Swings, Panic Attacks, Paranoia, Suicidal Ideation, Visual Hallucinations, Tactile Hallucinations, Other - Endocrine Endocrine: absent: As Per HPI, Change in Body Appearance, Change in Libido, Cold Intolorance, Deepening of Voice, Excessive Sweating, Fatigue, Flushing, Heat Intolorance, Increase in Ring/Shoe/Hat Size, Palpitations, Polydipsia, Polyphagia, Polyuria, Other - Hematologic/Lymphatic Hematologic: absent: As Per HPI, Easy Bleeding, Easy Bruising, Lymphadenopathy, Other Past Patient History - Infectious Disease Hx of Infectious Diseases: None - Tetanus Immunizations Tetanus Immunization: Unknown - Past Medical History & Family History Past Medical History?: Yes - Past Social History Smoking Status: Former Smoker Chewing Tobacco Use: No Cigar Use: No Alcohol: > 2 Drinks/Day Drugs: Denies Home Situation {Lives}: With Family Domestic Violence: Negative - CARDIAC Hx Hypertension: Yes - PULMONARY Hx Respiratory Disorders: No - NEUROLOGICAL Hx Neurological Disorder: No - HEENT Hx HEENT Problems: No - RENAL Hx Chronic Kidney Disease: No - ENDOCRINE/METABOLIC Hx Endocrine Disorders: Yes Hx Diabetes Mellitus Type 2: Yes - HEMATOLOGICAL/ONCOLOGICAL Hx Blood Disorders: No - INTEGUMENTARY Hx Dermatological Problems: No - MUSCULOSKELETAL/RHEUMATOLOGICAL Hx Musculoskeletal Disorders: No Hx Falls: No - GASTROINTESTINAL Hx Gastritis: Yes - GENITOURINARY/GYNECOLOGICAL Hx Genitourinary Disorders: No - PSYCHIATRIC Hx Substance Use: No - SURGICAL HISTORY Hx Appendectomy: Yes - ANESTHESIA Hx Anesthesia: Yes Hx Anesthesia Reactions: No Meds Allergies/Adverse Reactions: Allergies Allergy/AdvReac Type Severity Reaction Status Date / Time No Known Allergies Allergy Verified 10/30/17 18:48 - Medications Medications: Current Medications Acetaminophen (Tylenol 325mg Tab) 650 mg PO Q6 PRN PRN Reason: Pain, moderate (4-7) Last Admin: 12/08/17 10:27 Dose: 650 mg Aspirin (Aspirin Chewable) 81 mg PO DAILY [facility] Last Admin: 12/08/17 10:17 Dose: 81 mg Calcium Carbonate (Tums) 500 mg PO BID [facility] Last Admin: 12/08/17 10:38 Dose: 500 mg Dextrose (Dextrose 50% Inj) 0 ml IV STAT PRN; Protocol PRN Reason: Hypoglycemia Protocol Dextrose (Glutose 15) 0 gm PO ONCE PRN; Protocol PRN Reason: Hypoglycemia Protocol Enoxaparin Sodium (Lovenox) 40 mg SC DAILY [facility] Last Admin: 12/08/17 10:18 Dose: 40 mg Glucagon (Glucagen Diagnostic Kit) 0 mg IM STAT PRN; Protocol PRN Reason: Hypoglycemia Protocol Sodium Chloride (Sodium Chloride 0.9%) 1,000 mls @ 100 mls/hr IV .Q10H [facility] Last Admin: 12/08/17 10:45 Dose: 100 mls/hr Piperacillin Sod/Tazobactam (Sod 3.375 gm/ Sodium Chloride) 100 mls @ 200 mls/ hr IVPB Q8H KEVYN PRN Reason: Protocol Last Admin: 12/08/17 09:00 Dose: 200 mls/hr Vancomycin/Sodium Chloride (Vancomycin 1 Gm/Ns 200 Ml) 1 gm in 200 mls @ 167 mls/hr IVPB Q24H KEVYN PRN Reason: Protocol Stop: 12/13/17 02:01 Last Admin: 12/08/17 02:30 Dose: 167 mls/hr Dextrose (Dextrose 5% In Water 1000 Ml) 1,000 mls @ 0 mls/hr IV .Q0M PRN; Protocol; Per Protocol PRN Reason: Hypoglycemia Protocol Insulin Human Regular (Novolin R) 0 unit SC ACHS [facility] PRN Reason: Protocol Last Admin: 12/08/17 12:30 Dose: 2 unit Losartan Potassium (Cozaar) 50 mg PO BID [facility] Last Admin: 12/08/17 10:17 Dose: 50 mg Pantoprazole Sodium (Protonix Inj) 40 mg IVP DAILY [facility] Last Admin: 12/08/17 10:17 Dose: 40 mg Rosuvastatin Calcium (Crestor) 2.5 mg PO HS [facility] Physical Exam - Constitutional Appears: Non-toxic, Chronically Ill - Head Exam Head Exam: NORMOCEPHALIC - Eye Exam Eye Exam: PERRL. absent: Scleral icterus - ENT Exam ENT Exam: Mucous Membranes Dry - Neck Exam Neck exam: Negative for: Lymphadenopathy - Respiratory Exam Respiratory Exam: Decreased Breath Sounds - Cardiovascular Exam Cardiovascular Exam: REGULAR RHYTHM - GI/Abdominal Exam GI & Abdominal Exam: Diminished Bowel Sounds, Soft. absent: Tenderness - Rectal Exam Rectal Exam: Deferred - Exam Exam: NORMAL INSPECTION - Extremities Exam Extremities exam: Positive for: pedal edema, tenderness, pedal pulses present. Negative for: calf tenderness Additional comments: Lower extremity focused examination: DERM- Ulceration noted to the distal right 3rd digit plantarly measuring approximately 2 cm x 2 x .3 cm with necrotic skin to the distal aspect of the toe. Wound base is mainly granular, mal odor noted, no purulence drainage, mild serous drainage noted, no erythema, no streaking, no fluctanance or abscess appreciated. Dried lanced bullous lesions noted to lateral aspect 5ht digit measuring approximately 1 cm x 1 cm (no drainage no signs infection) VASC- pedal pulses fully palpable 2/4 bilaterally, skin temperature warm to cool from proximal knees to distal digits , cap refill < 3 sec to all digits, moderate edema noted to distal aspect right 3rd digit NEURO- gross sensation diminished and protective pedal sensation absent ORTHO- amputations of R hallux and R 2nd digit, no pain with palpation to ulceration site - Back Exam Back exam: absent: CVA tenderness (L), CVA tenderness (R) - Neurological Exam Neurological exam: Alert, CN II-XII Intact, Oriented x3, Reflexes Normal - Psychiatric Exam Psychiatric exam: Normal Mood - Skin Skin Exam: Dry Results - Vital Signs Recent Vital Signs: Last Vital Signs Temp 98.2 F 12/08/17 15:45 Pulse 60 12/08/17 15:45 Resp 18 12/08/17 15:45 BP 145/89 12/08/17 15:45 Pulse Ox 98 12/08/17 15:45 - Labs Result Diagrams: 12/08/17 07:08 12/07/17 20:47 Labs: Laboratory Results - last 24 hr 12/07/17 12/07/17 12/07/17 20:29 20:47 20:47 WBC 4.9 RBC 5.01 Hgb 14.4 Hct 42.9 MCV 85.8 MCH 28.7 MCHC 33.4 RDW 13.8 Plt Count 278 MPV 8.9 Neut % (Auto) 46.2 L Lymph % (Auto) 42.1 H [place] % (Auto) 8.1 Eos % (Auto) 2.6 Baso % (Auto) 1.0 Neut # (Auto) 2.3 Lymph # (Auto) 2.1 [place] # (Auto) 0.4 Eos # (Auto) 0.1 Baso # (Auto) 0.0 ESR PT 10.1 INR 0.9 APTT 33 pO2 VBG pH VBG pCO2 VBG HCO3 VBG Total CO2 VBG O2 Sat (Calc) VBG Base Excess VBG Potassium Glucose Lactate FiO2 Crit Value Called To Crit Value Called By Crit Value Read Back Blood Gas Notified Time Sodium Potassium Chloride Carbon Dioxide Anion Gap BUN Creatinine Est GFR ( Amer) Est GFR (Non-Af Amer) POC Glucose (mg/dL) > 500 H* Random Glucose Hemoglobin A1c Calcium Magnesium Total Bilirubin AST ALT Alkaline Phosphatase Total Creatine Kinase CK-MB (Mass) Troponin I C-Reactive Protein Total Protein Albumin Globulin Albumin/Globulin Ratio Triglycerides Cholesterol LDL Cholesterol Direct HDL Cholesterol Lipase Free T4 TSH 3rd Generation Venous Blood Potassium Urine Color Urine Clarity Urine pH Ur Specific [place] Urine Protein Urine Glucose (UA) Urine Ketones Urine Blood Urine Nitrate Urine Bilirubin Urine Urobilinogen Ur Leukocyte Esterase Urine WBC (Auto) Urine Opiates Screen Urine Methadone Screen Ur Barbiturates Screen Ur Phencyclidine Scrn Ur Amphetamines Screen U Benzodiazepines Scrn U Oth Cocaine Metabols U Cannabinoids Screen Alcohol, Quantitative 12/07/17 12/07/17 12/07/17 20:47 20:50 21:27 WBC RBC Hgb Hct MCV MCH MCHC RDW Plt Count MPV Neut % (Auto) Lymph % (Auto) [place] % (Auto) Eos % (Auto) Baso % (Auto) Neut # (Auto) Lymph # (Auto) [place] # (Auto) Eos # (Auto) Baso # (Auto) ESR PT INR APTT pO2 22 L VBG pH 7.33 VBG pCO2 50 VBG HCO3 23.0 VBG Total CO2 27.9 VBG O2 Sat (Calc) 40.2 VBG Base Excess -0.2 L VBG Potassium 4.2 Glucose 510 H* D Lactate 1.6 FiO2 21.0 Crit Value Called To Dr lopez Crit Value Called By [facility] Crit Value Read Back Y Blood Gas Notified Time 2054 Sodium 133 136.0 Potassium 4.8 Chloride 97 L 102.0 Carbon Dioxide 27 Anion Gap 15 BUN 35 H Creatinine 1.5 Est GFR ( Amer) 59 Est GFR (Non-Af Amer) 48 POC Glucose (mg/dL) Random Glucose 538 H* D Hemoglobin A1c Calcium 8.2 L Magnesium 2.3 Total Bilirubin 1.2 AST 29 ALT 19 L D Alkaline Phosphatase 150 H D Total Creatine Kinase CK-MB (Mass) Troponin I 0.0170 C-Reactive Protein Total Protein 6.9 Albumin 3.7 Globulin 3.2 Albumin/Globulin Ratio 1.2 Triglycerides Cholesterol LDL Cholesterol Direct HDL Cholesterol Lipase < 10 L Free T4 TSH 3rd Generation Venous Blood Potassium 4.2 Urine Color Yellow Urine Clarity Clear Urine pH 5.0 Ur Specific [place] 1.027 Urine Protein Negative Urine Glucose (UA) 3+ H Urine Ketones Negative Urine Blood Negative Urine Nitrate Negative Urine Bilirubin Negative Urine Urobilinogen Normal Ur Leukocyte Esterase Neg Urine WBC (Auto) 1 Urine Opiates Screen Urine Methadone Screen Ur Barbiturates Screen Ur Phencyclidine Scrn Ur Amphetamines Screen U Benzodiazepines Scrn U Oth Cocaine Metabols U Cannabinoids Screen Alcohol, Quantitative 12/07/17 12/07/17 12/08/17 23:44 23:44 00:10 WBC RBC Hgb Hct MCV MCH MCHC RDW Plt Count MPV Neut % (Auto) Lymph % (Auto) [place] % (Auto) Eos % (Auto) Baso % (Auto) Neut # (Auto) Lymph # (Auto) [place] # (Auto) Eos # (Auto) Baso # (Auto) ESR 7 PT INR APTT pO2 VBG pH VBG pCO2 VBG HCO3 VBG Total CO2 VBG O2 Sat (Calc) VBG Base Excess VBG Potassium Glucose Lactate FiO2 Crit Value Called To Crit Value Called By Crit Value Read Back Blood Gas Notified Time Sodium Potassium Chloride Carbon Dioxide Anion Gap BUN Creatinine Est GFR ( Amer) Est GFR (Non-Af Amer) POC Glucose (mg/dL) 358 H Random Glucose Hemoglobin A1c Calcium Magnesium Total Bilirubin AST ALT Alkaline Phosphatase Total Creatine Kinase CK-MB (Mass) Troponin I C-Reactive Protein 5.80 Total Protein Albumin Globulin Albumin/Globulin Ratio Triglycerides Cholesterol LDL Cholesterol Direct HDL Cholesterol Lipase Free T4 TSH 3rd Generation Venous Blood Potassium Urine Color Urine Clarity Urine pH Ur Specific [place] Urine Protein Urine Glucose (UA) Urine Ketones Urine Blood Urine Nitrate Urine Bilirubin Urine Urobilinogen Ur Leukocyte Esterase Urine WBC (Auto) Urine Opiates Screen Urine Methadone Screen Ur Barbiturates Screen Ur Phencyclidine Scrn Ur Amphetamines Screen U Benzodiazepines Scrn U Oth Cocaine Metabols U Cannabinoids Screen Alcohol, Quantitative 12/08/17 12/08/17 12/08/17 00:42 02:48 03:23 WBC RBC Hgb Hct MCV MCH MCHC RDW Plt Count MPV Neut % (Auto) Lymph % (Auto) [place] % (Auto) Eos % (Auto) Baso % (Auto) Neut # (Auto) Lymph # (Auto) [place] # (Auto) Eos # (Auto) Baso # (Auto) ESR PT INR APTT pO2 VBG pH VBG pCO2 VBG HCO3 VBG Total CO2 VBG O2 Sat (Calc) VBG Base Excess VBG Potassium Glucose Lactate FiO2 Crit Value Called To Crit Value Called By Crit Value Read Back Blood Gas Notified Time Sodium Potassium Chloride Carbon Dioxide Anion Gap BUN Creatinine Est GFR ( Amer) Est GFR (Non-Af Amer) POC Glucose (mg/dL) 313 H Random Glucose Hemoglobin A1c 9.3 H Calcium Magnesium Total Bilirubin AST ALT Alkaline Phosphatase Total Creatine Kinase 172 H CK-MB (Mass) 2.16 Troponin I < 0.0120 C-Reactive Protein Total Protein Albumin Globulin Albumin/Globulin Ratio Triglycerides 191 H D Cholesterol 174 LDL Cholesterol Direct 77 HDL Cholesterol 56 Lipase Free T4 TSH 3rd Generation 10.90 H Venous Blood Potassium Urine Color Urine Clarity Urine pH Ur Specific [place] Urine Protein Urine Glucose (UA) Urine Ketones Urine Blood Urine Nitrate Urine Bilirubin Urine Urobilinogen Ur Leukocyte Esterase Urine WBC (Auto) Urine Opiates Screen Urine Methadone Screen Ur Barbiturates Screen Ur Phencyclidine Scrn Ur Amphetamines Screen U Benzodiazepines Scrn U Oth Cocaine Metabols U Cannabinoids Screen Alcohol, Quantitative 12/08/17 12/08/17 12/08/17 03:23 03:27 03:27 WBC RBC Hgb Hct MCV MCH MCHC RDW Plt Count MPV Neut % (Auto) Lymph % (Auto) [place] % (Auto) Eos % (Auto) Baso % (Auto) Neut # (Auto) Lymph # (Auto) [place] # (Auto) Eos # (Auto) Baso # (Auto) ESR PT INR APTT pO2 VBG pH VBG pCO2 VBG HCO3 VBG Total CO2 VBG O2 Sat (Calc) VBG Base Excess VBG Potassium Glucose Lactate FiO2 Crit Value Called To Crit Value Called By Crit Value Read Back Blood Gas Notified Time Sodium Potassium Chloride Carbon Dioxide Anion Gap BUN Creatinine Est GFR ( Amer) Est GFR (Non-Af Amer) POC Glucose (mg/dL) Random Glucose Hemoglobin A1c Calcium Magnesium Total Bilirubin AST ALT Alkaline Phosphatase Total Creatine Kinase CK-MB (Mass) Troponin I C-Reactive Protein Total Protein Albumin Globulin Albumin/Globulin Ratio Triglycerides Cholesterol LDL Cholesterol Direct HDL Cholesterol Lipase Free T4 1.09 TSH 3rd Generation Venous Blood Potassium Urine Color Urine Clarity Urine pH Ur Specific [place] Urine Protein Urine Glucose (UA) Urine Ketones Urine Blood Urine Nitrate Urine Bilirubin Urine Urobilinogen Ur Leukocyte Esterase Urine WBC (Auto) Urine Opiates Screen Negative Urine Methadone Screen Negative Ur Barbiturates Screen Negative Ur Phencyclidine Scrn Negative Ur Amphetamines Screen Negative U Benzodiazepines Scrn Negative U Oth Cocaine Metabols Negative U Cannabinoids Screen Negative Alcohol, Quantitative < 10 12/08/17 12/08/17 12/08/17 06:13 07:08 11:53 WBC 3.1 L RBC 5.13 Hgb 14.6 Hct 43.2 MCV 84.3 MCH 28.6 MCHC 33.9 RDW 13.7 Plt Count 233 MPV 9.0 Neut % (Auto) 44.1 L Lymph % (Auto) 48.5 H [place] % (Auto) 4.3 Eos % (Auto) 2.8 Baso % (Auto) 0.3 Neut # (Auto) 1.4 L Lymph # (Auto) 1.5 [place] # (Auto) 0.1 Eos # (Auto) 0.1 Baso # (Auto) 0.0 ESR PT INR APTT pO2 VBG pH VBG pCO2 VBG HCO3 VBG Total CO2 VBG O2 Sat (Calc) VBG Base Excess VBG Potassium Glucose Lactate FiO2 Crit Value Called To Crit Value Called By Crit Value Read Back Blood Gas Notified Time Sodium Potassium Chloride Carbon Dioxide Anion Gap BUN Creatinine Est GFR ( Amer) Est GFR (Non-Af Amer) POC Glucose (mg/dL) 243 H Random Glucose Hemoglobin A1c Calcium Magnesium Total Bilirubin AST ALT Alkaline Phosphatase Total Creatine Kinase 165 CK-MB (Mass) 2.37 Troponin I < 0.0120 C-Reactive Protein Total Protein Albumin Globulin Albumin/Globulin Ratio Triglycerides Cholesterol LDL Cholesterol Direct HDL Cholesterol Lipase Free T4 TSH 3rd Generation Venous Blood Potassium Urine Color Urine Clarity Urine pH Ur Specific [place] Urine Protein Urine Glucose (UA) Urine Ketones Urine Blood Urine Nitrate Urine Bilirubin Urine Urobilinogen Ur Leukocyte Esterase Urine WBC (Auto) Urine Opiates Screen Urine Methadone Screen Ur Barbiturates Screen Ur Phencyclidine Scrn Ur Amphetamines Screen U Benzodiazepines Scrn U Oth Cocaine Metabols U Cannabinoids Screen Alcohol, Quantitative 12/08/17 12:13 WBC RBC Hgb Hct MCV MCH MCHC RDW Plt Count MPV Neut % (Auto) Lymph % (Auto) [place] % (Auto) Eos % (Auto) Baso % (Auto) Neut # (Auto) Lymph # (Auto) [place] # (Auto) Eos # (Auto) Baso # (Auto) ESR PT INR APTT pO2 VBG pH VBG pCO2 VBG HCO3 VBG Total CO2 VBG O2 Sat (Calc) VBG Base Excess VBG Potassium Glucose Lactate FiO2 Crit Value Called To Crit Value Called By Crit Value Read Back Blood Gas Notified Time Sodium Potassium Chloride Carbon Dioxide Anion Gap BUN Creatinine Est GFR ( Amer) Est GFR (Non-Af Amer) POC Glucose (mg/dL) 221 H Random Glucose Hemoglobin A1c Calcium Magnesium Total Bilirubin AST ALT Alkaline Phosphatase Total Creatine Kinase CK-MB (Mass) Troponin I C-Reactive Protein Total Protein Albumin Globulin Albumin/Globulin Ratio Triglycerides Cholesterol LDL Cholesterol Direct HDL Cholesterol Lipase Free T4 TSH 3rd Generation Venous Blood Potassium Urine Color Urine Clarity Urine pH Ur Specific [place] Urine Protein Urine Glucose (UA) Urine Ketones Urine Blood Urine Nitrate Urine Bilirubin Urine Urobilinogen Ur Leukocyte Esterase Urine WBC (Auto) Urine Opiates Screen Urine Methadone Screen Ur Barbiturates Screen Ur Phencyclidine Scrn Ur Amphetamines Screen U Benzodiazepines Scrn U Oth Cocaine Metabols U Cannabinoids Screen Alcohol, Quantitative Assessment & Plan (1) Diabetes mellitus Status: Acute (2) Diabetic foot infection Status: Acute (3) Gangrene of toe of right foot Status: Acute - Assessment and Plan (Free Text) Assessment: await cultures, MRI and vascular eval cont IV antibiotics . wound care mat=y need amputation 3rd digit right foot
[2017-12-08] MEDS: Rosuvastatin Calcium 2.5 mg Tab PO SCH (21:37)
--- NOTE | 2017-12-08 23:02 | CARD ---
APPROVED REPORT EKG Measurement Heart [id number] <Conclusion> Sinus rhythm with premature supraventricular complexes Otherwise normal ECG
[2017-12-09] MEDS: Piperacillin/Tazobact 3.375 GM in Sodium Chloride 100 ML IVPB SCH ×3 (00:25→18:38)
[2017-12-09] MEDS: Vancomycin 1 gm/NS 200 ml 1 GM/200 ML BAG IVPB SCH (01:58)
--- NOTE | 2017-12-09 07:42 | CP.PCM.PN ---
<Sara Ureña - Last Filed: 12/09/17 15:38> Subjective - Date & Time of Evaluation Date of Evaluation: 12/09/17 Time of Evaluation: 07:38 - Subjective Subjective: Progress Note for Dr. Munroe Patient seen and examined at bedside. Patient states he had allergic reaction to either vancomycin or zosyn, but was unaware of which medication. PAtient admits to foreskin edema and scrotal edema and erythema. Patient stated that this happened last time, and was given 2% antibiotic ointment/cream and it helped with the swelling. Objective - Vital Signs/Intake and Output Vital Signs (last 24 hours): Temp Pulse Resp BP Pulse Ox 97.7 F 60 20 135/81 96 12/08/17 23:05 12/08/17 23:05 12/08/17 23:05 12/08/17 23:05 12/08/17 23:05 Intake and Output: 12/09/17 12/09/17 06:59 18:59 Output Total 950 Balance -950 - Medications Medications: Current Medications Acetaminophen (Tylenol 325mg Tab) 650 mg PO Q6 PRN PRN Reason: Pain, moderate (4-7) Last Admin: 12/08/17 10:27 Dose: 650 mg Aspirin (Aspirin Chewable) 81 mg PO DAILY [facility] Last Admin: 12/08/17 10:17 Dose: 81 mg Bacitracin (Bacitracin) 1 gm TOP BID [facility] Calcium Carbonate (Tums) 500 mg PO BID [facility] Last Admin: 12/08/17 19:37 Dose: 500 mg Dextrose (Dextrose 50% Inj) 0 ml IV STAT PRN; Protocol PRN Reason: Hypoglycemia Protocol Dextrose (Glutose 15) 0 gm PO ONCE PRN; Protocol PRN Reason: Hypoglycemia Protocol Enoxaparin Sodium (Lovenox) 40 mg SC DAILY [facility] Last Admin: 12/08/17 10:18 Dose: 40 mg Glucagon (Glucagen Diagnostic Kit) 0 mg IM STAT PRN; Protocol PRN Reason: Hypoglycemia Protocol Sodium Chloride (Sodium Chloride 0.9%) 1,000 mls @ 100 mls/hr IV .Q10H [facility] Last Admin: 12/08/17 21:42 Dose: Not Given Dextrose (Dextrose 5% In Water 1000 Ml) 1,000 mls @ 0 mls/hr IV .Q0M PRN; Protocol; Per Protocol PRN Reason: Hypoglycemia Protocol Insulin Human Regular (Novolin R) 0 unit SC ACHS [facility] PRN Reason: Protocol Last Admin: 12/08/17 21:41 Dose: Not Given Losartan Potassium (Cozaar) 50 mg PO BID [facility] Last Admin: 12/08/17 18:20 Dose: 50 mg Ondansetron HCl (Zofran Inj) 4 mg IVP DAILY@ONCE PRN PRN Reason: vomitting Pantoprazole Sodium (Protonix Inj) 40 mg IVP DAILY [facility] Last Admin: 12/08/17 10:17 Dose: 40 mg Rosuvastatin Calcium (Crestor) 2.5 mg PO HS [facility] Last Admin: 12/08/17 21:37 Dose: 2.5 mg - Labs Labs: 12/08/17 07:08 PT 10.1 SECONDS (9.7-12.2) 12/07/17 20:47 INR 0.9 12/07/17 20:47 APTT 33 SECONDS (21-34) 12/07/17 20:47 - Constitutional Appears: In Acute Distress - Head Exam Head Exam: ATRAUMATIC, NORMAL INSPECTION, NORMOCEPHALIC - Eye Exam Eye Exam: EOMI, Normal appearance Pupil Exam: NORMAL ACCOMODATION, PERRL - ENT Exam ENT Exam: Mucous Membranes Moist, Normal Exam - Neck Exam Neck Exam: Full ROM. absent: Thyromegaly - Respiratory Exam Respiratory Exam: Clear to Ausculation Bilateral, NORMAL BREATHING PATTERN. absent: Accessory Muscle Use - Cardiovascular Exam Cardiovascular Exam: REGULAR RHYTHM, +S1, +S2. absent: Bradycardia, Tachycardia - GI/Abdominal Exam GI & Abdominal Exam: Soft, Normal Bowel Sounds (d). absent: Tenderness - Extremities Exam Extremities Exam: Full ROM, Normal Capillary Refill. absent: Pedal Edema Additional comments: right 3rd digit gangrene, s/p right 2nd digit amputation, gangrenous toe, s/p b/l excision of bone b/l hallux, s/p right hallux palatal amputation - Back Exam Back Exam: Full ROM, NORMAL INSPECTION - Neurological Exam Neurological Exam: Alert, Awake - Psychiatric Exam Psychiatric exam: Normal Affect, Normal Mood Assessment and Plan - Assessment and Plan (Free Text) Assessment: 57M presents with Chest pain, intermittent right arm numbness, bloating, eructation. Chest pain ACS r/o VALENTINA negative x 3 Cardiology: Dr. Moussa Last stress test and echo in August, no cardiac interventions or workup at this time. Patient is medically optimized. Dyspepsia/GERD Patient complains of eructation, vomiting, smoking history GI Consult: Dr. Nelson Per GI: Patient to sit up 1 hour postprandial protonix Tums BID Pain Tylenol 650 mg PO Q6H PRN ASA 81 mg PO QD HTN Cozaar 50mg PO BID DM Insulin SS Hypoglycemic Protocol Right gangrenous toe blood cultures negative 12/07 wound cultures negative 12/07 Podiatry Consult: Dr. Rodgers MRI positive for acute osteomyelitis of 3rd right mtp and changes found in first phalanx Podiatry Consult: Dr. Rodgers Friday 12/15 patient is scheduled for Right 3rd digit partial amputation. Vancomycin 1 gm IVPB Q24H Zosyn 3.375gm IVPB Q8H Balanitis 1% clotrimazole (lotrimin) ointment Prophylaxis Lovenox 40mg SC QD Protonix 40mg IVP QD Diet: carbohydrate consistent diet Dispo: Friday 12/15 patient is scheduled for right 3rd digit partial amputation. Patient is medically optimized for surgery. discussed with Dr. Munroe <Cecille Munroe V - Last Filed: 12/11/17 15:31> Objective - Vital Signs/Intake and Output Vital Signs (last 24 hours): Temp Pulse Resp BP Pulse Ox 97.6 F 93 H 20 115/69 97 12/11/17 09:16 12/11/17 09:16 12/11/17 09:16 12/11/17 09:16 12/11/17 09:16 - Medications Medications: Current Medications Acetaminophen (Tylenol 325mg Tab) 650 mg PO Q6 PRN PRN Reason: Pain, moderate (4-7) Last Admin: 12/08/17 10:27 Dose: 650 mg Aspirin (Aspirin Chewable) 81 mg PO DAILY [facility] Last Admin: 12/11/17 09:26 Dose: 81 mg Calcium Carbonate (Tums) 500 mg PO BID [facility] Last Admin: 12/11/17 09:30 Dose: 500 mg Clotrimazole (Lotrimin 1%) 0 gm TOP BID [facility] Last Admin: 12/11/17 12:52 Dose: 1 applic Dextrose (Dextrose 50% Inj) 0 ml IV STAT PRN; Protocol PRN Reason: Hypoglycemia Protocol Dextrose (Glutose 15) 0 gm PO ONCE PRN; Protocol PRN Reason: Hypoglycemia Protocol Enoxaparin Sodium (Lovenox) 40 mg SC DAILY [facility] Last Admin: 12/11/17 09:26 Dose: 40 mg Glucagon (Glucagen Diagnostic Kit) 0 mg IM STAT PRN; Protocol PRN Reason: Hypoglycemia Protocol Piperacillin Sod/Tazobactam (Sod 3.375 gm/ Sodium Chloride) 100 mls @ 200 mls/ hr IVPB Q8H [facility] PRN Reason: Protocol Last Admin: 12/11/17 10:08 Dose: Not Given Vancomycin/Sodium Chloride (Vancomycin 1 Gm/Ns 200 Ml) 1 gm in 200 mls @ 133.333 mls/hr IVPB Q24H [facility] PRN Reason: Protocol Stop: 12/15/17 02:01 Last Admin: 12/11/17 02:08 Dose: 133.333 mls/hr Sodium Chloride (Sodium Chloride 0.9%) 1,000 mls @ 125 mls/hr IV .Q8H [facility] Last Admin: 12/11/17 09:33 Dose: Not Given Insulin Aspart (Novolog) 14 unit SC AC [facility] Last Admin: 12/11/17 12:52 Dose: 14 unit Insulin Aspart (Novolog) 0 unit SC ACHS [facility] Last Admin: 12/11/17 12:24 Dose: Not Given Insulin Glargine (Lantus) 30 unit SC HS [facility] Last Admin: 12/10/17 22:03 Dose: 30 unit Losartan Potassium (Cozaar) 50 mg PO BID [facility] Last Admin: 12/11/17 09:26 Dose: 50 mg Ondansetron HCl (Zofran Inj) 4 mg IVP DAILY@ONCE PRN PRN Reason: vomitting Last Admin: 12/10/17 06:11 Dose: 4 mg Pantoprazole Sodium (Protonix Inj) 40 mg IVP DAILY [facility] Last Admin: 12/11/17 09:27 Dose: 40 mg Rosuvastatin Calcium (Crestor) 2.5 mg PO HS [facility] Last Admin: 12/10/17 22:03 Dose: 2.5 mg - Labs Labs: 12/11/17 08:05 12/11/17 08:05 PT 10.1 SECONDS (9.7-12.2) 12/07/17 20:47 INR 0.9 12/07/17 20:47 APTT 33 SECONDS (21-34) 12/07/17 20:47 - Exam Exam: absent: Scrotal Swelling, Testicular Tenderness Additional comments: exam: witnessed by resident in the room (noted addendum in my note) uncircumised penis has small lacerations over the foreskin smega over the penis scrotum is not swollen Patient is able to retract foreskin - Neurological Exam Neurological Exam: Oriented x3 Attending/Attestation - Attestation I have personally seen and examined this patient.: Yes I have fully participated in the care of the patient.: Yes I have reviewed all pertinent clinical information, including history, physical exam and plan: Yes Notes (Text): This is late computer entry for 12/09/17. Patient seen, examined and case discussed with day-time resident. Patient noted for itchniess and smega over the foreskin over the penis; patient is very sensitive to IV abx; started on Lotrim cream to help. Patient to continue IV abx to cover for osteomyelitis. Resident has spoken with podiatry since patient is cardiac optimized; scheduled for amputation of 3rd toe next Wednesday. Assessment/Plan 1) Right osteomyelitis of 3rd foot * Podiatry Consult: Dr. Edu Rodgers on board-->help appreciated * Friday 12/15 patient is scheduled for Right 3rd digit partial amputation. * Infectious Disease: Dr Lawrence on board-->help appreciated * Blood cultures negative 12/07 * Wound cultures (12/07/17): pending * MRI (12/08/17): signal abnormality noted at the 3rd middle and distal phalanges with patchy decreased T1 signal and pacthy increased STIR signal for acute and or developing acute ostemyelitic changes. Soft tissue ulceration noted at that level. Resection of the 1st digit to the level of the midshaft of the 1st proximal Etc. (further findings per report) * start Vancomycin 1 gm IVPB Q24H * start Zosyn 3.375gm IVPB Q8H 2) Chest pain-->resolved Assessment/Plan * Cardiology: Dr. Gooden on board-->help appreciated * VALENTINA negative x 3 * Myocardial Perfusion (08/25/17): low probability for significant obstructive atherosclerotic coronary artery disease, normal left ventricular ejection fraction * Per consult: The pain is reproducible with tenderness no acute EKG changes and negative enzymes. 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 No further planned GI intervention, will sign off case. Please reconsult as necessary, thank you * Advance diet as tolerated, suggest small frequent meals throughout the day 4) Hypertension Assessment/Plan * Cozaar 50mg PO BID * Monitor vital signs 5) Diabetes uncontrolled * Insulin SS * Hypoglycemic Protocol * a1c: 9.3 * Cozaar 50mg PO BID 6) Balanitis * Patient seen and examined with resident at bedside as witnessed during exam. * 1% clotrimazole (lotrimin) ointment * Patient has frequent yeast infections while on IV abx 7) Prophylaxis * Lovenox 40mg SC Qdaily * Protonix 40mg IVP QDaily Disposition: patient is pending OR for 3rd toe amputation with podiatry. Will continue IV abx to treat for osteomyelitis
[2017-12-09] MEDS ORDERED: DiphenhydrAMINE 50 mg/ml Inj IVP ONE (08:00)
[2017-12-09] MEDS: (Novolin R) Insulin Human Regular 100 units/ml vial SC SCH ×4 (08:04→21:40)
--- NOTE | 2017-12-09 08:19 | CP.PCM.CON ---
<Key Lewis - Last Filed: 12/09/17 09:08> History of Present Illness - History of Present Illness History of Present Illness: Gastroenterology Fellow/PGY5 Consult Note 57 year old male with PMH of PVD complicated by multiple digit amputations, T2DM , HTN, and HLD presenting with chest tightness and right foot pain. Active treatment of right foot third digit dry gangrene. GI consultation for vomiting. Patient describes issues with hiccups and belching for the last two years and previously taking medication for an "ulcer" with no relief in symptoms. He notes progress symptoms for the last two months. Describes solid and liquid intake without dysphagia or odynophagia followed by gas, bloating,hiccups, and belching within 20-30 minutes that leads to food vomitus with each meal. Associated indigestion and 15 pound unintentional weight loss in last two months. Denies use of NSAIDs, herbs, supplements, or vitamins. Denies fever, chills, sweats, hematemesis, heartburn, abdominal pain, diarrhea, constipation, melena, or hematochezia. Prior colonoscopy 1-2 years ago endorsed to be normal. No prior EGD. Family History- denies stomach cancer or colon cancer Social History- 30 pack years, quit 6 years, 2-18oz beers and 2 shots daily for last 20 years, prior marijuana and cocaine use Surgical History- appendectomy, right 2nd digit amputation (6 years ago), B/L hallux bone excision Review of Systems - Review of Systems Review of Systems: 12-point review of systems negative except for as above Past Patient History - Infectious Disease Hx of Infectious Diseases: None - Tetanus Immunizations Tetanus Immunization: Unknown - Past Medical History & Family History Past Medical History?: Yes - Past Social History Smoking Status: Former Smoker Chewing Tobacco Use: No Cigar Use: No Alcohol: > 2 Drinks/Day Drugs: Denies Home Situation {Lives}: With Family Domestic Violence: Negative - CARDIAC Hx Hypertension: Yes - PULMONARY Hx Respiratory Disorders: No - NEUROLOGICAL Hx Neurological Disorder: No - HEENT Hx HEENT Problems: No - RENAL Hx Chronic Kidney Disease: No - ENDOCRINE/METABOLIC Hx Endocrine Disorders: Yes Hx Diabetes Mellitus Type 2: Yes - HEMATOLOGICAL/ONCOLOGICAL Hx Blood Disorders: No - INTEGUMENTARY Hx Dermatological Problems: No - MUSCULOSKELETAL/RHEUMATOLOGICAL Hx Musculoskeletal Disorders: No Hx Falls: No - GASTROINTESTINAL Hx Gastritis: Yes - GENITOURINARY/GYNECOLOGICAL Hx Genitourinary Disorders: No - PSYCHIATRIC Hx Substance Use: No - SURGICAL HISTORY Hx Appendectomy: Yes - ANESTHESIA Hx Anesthesia: Yes Hx Anesthesia Reactions: No Meds Allergies/Adverse Reactions: Allergies Allergy/AdvReac Type Severity Reaction Status Date / Time No Known Allergies Allergy Verified 10/30/17 18:48 - Medications Medications: Current Medications Acetaminophen (Tylenol 325mg Tab) 650 mg PO Q6 PRN PRN Reason: Pain, moderate (4-7) Last Admin: 12/08/17 10:27 Dose: 650 mg Aspirin (Aspirin Chewable) 81 mg PO DAILY [facility] Last Admin: 12/08/17 10:17 Dose: 81 mg Calcium Carbonate (Tums) 500 mg PO BID [facility] Last Admin: 12/08/17 19:37 Dose: 500 mg Dextrose (Dextrose 50% Inj) 0 ml IV STAT PRN; Protocol PRN Reason: Hypoglycemia Protocol Dextrose (Glutose 15) 0 gm PO ONCE PRN; Protocol PRN Reason: Hypoglycemia Protocol Enoxaparin Sodium (Lovenox) 40 mg SC DAILY [facility] Last Admin: 12/08/17 10:18 Dose: 40 mg Glucagon (Glucagen Diagnostic Kit) 0 mg IM STAT PRN; Protocol PRN Reason: Hypoglycemia Protocol Sodium Chloride (Sodium Chloride 0.9%) 1,000 mls @ 100 mls/hr IV .Q10H [facility] Last Admin: 12/08/17 21:42 Dose: Not Given Dextrose (Dextrose 5% In Water 1000 Ml) 1,000 mls @ 0 mls/hr IV .Q0M PRN; Protocol; Per Protocol PRN Reason: Hypoglycemia Protocol Insulin Human Regular (Novolin R) 0 unit SC ACHS [facility] PRN Reason: Protocol Last Admin: 12/09/17 08:04 Dose: 4 unit Losartan Potassium (Cozaar) 50 mg PO BID [facility] Last Admin: 12/08/17 18:20 Dose: 50 mg Mupirocin (Bactroban Ointment) 0.5 gm TOP BID [facility] Ondansetron HCl (Zofran Inj) 4 mg IVP DAILY@ONCE PRN PRN Reason: vomitting Pantoprazole Sodium (Protonix Inj) 40 mg IVP DAILY [facility] Last Admin: 12/08/17 10:17 Dose: 40 mg Rosuvastatin Calcium (Crestor) 2.5 mg PO HS [facility] Last Admin: 12/08/17 21:37 Dose: 2.5 mg Physical Exam - Constitutional Appears: Non-toxic, No Acute Distress - Head Exam Head Exam: ATRAUMATIC, NORMOCEPHALIC - Eye Exam Eye Exam: EOMI, PERRL. absent: Scleral icterus Pupil Exam: PERRL. absent: Miosis, Mydriatic - ENT Exam ENT Exam: Mucous Membranes Moist, Normal Oropharynx - Neck Exam Neck exam: Positive for: Full Rom, Normal Inspection - Respiratory Exam Respiratory Exam: Clear to Auscultation Bilateral. absent: Rales, Rhonchi, Wheezes - Cardiovascular Exam Cardiovascular Exam: RRR, +S1, +S2. absent: Gallop, Rubs - GI/Abdominal Exam GI & Abdominal Exam: Normal Bowel Sounds, Soft. absent: Distended, Firm, Guarding, Organomegaly, Rebound, Rigid, Tenderness - Extremities Exam Extremities exam: Positive for: normal inspection Additional comments: right foot third digit gangrene - Neurological Exam Neurological exam: Alert, Oriented x3 - Psychiatric Exam Psychiatric exam: Normal Affect, Normal Mood - Skin Skin Exam: Dry, Intact, Normal Color, Warm Results - Vital Signs Recent Vital Signs: Last Vital Signs Temp 97.7 F 12/08/17 23:05 Pulse 60 12/08/17 23:05 Resp 20 12/08/17 23:05 BP 135/81 12/08/17 23:05 Pulse Ox 96 12/08/17 23:05 - Labs Result Diagrams: 12/08/17 07:08 12/07/17 20:47 Labs: Laboratory Results - last 24 hr 12/08/17 12/08/17 12/08/17 06:13 11:53 12:13 POC Glucose (mg/dL) 243 H 221 H Total Creatine Kinase 165 CK-MB (Mass) 2.37 Troponin I < 0.0120 Vancomycin Trough 12/08/17 12/08/17 12/09/17 17:05 20:51 05:57 POC Glucose (mg/dL) 339 H 223 H 316 H Total Creatine Kinase CK-MB (Mass) Troponin I Vancomycin Trough 12/09/17 06:21 POC Glucose (mg/dL) Total Creatine Kinase CK-MB (Mass) Troponin I Vancomycin Trough 15.0 H Assessment & Plan - Assessment and Plan (Free Text) Assessment: 57 year old male with PMH of PVD complicated by multiple digit amputations, T2DM , HTN, and HLD presenting with chest tightness and right foot pain. Active treatment of right foot third digit dry gangrene. GI consultation for vomiting. Prior colonoscopy 1-2 years ago endorsed to be normal. No prior EGD. Plan: -Dyspepsia -DDx: gut dysmotility with uncontrolled DM, acute infectious process, antibiotics -continue PPI trial- Protonix 40mg ACB -improve glycemic control -small, frequent, low fat meals -sit upright for at least one hour postprandial -avoid acidic foods -supportive care: antiemetics PRN -outpatient GI follow up to re-assess symptoms and concern for weight loss -further workup for gastroparesis or other underlying pathology in outpatient setting if symptoms persist despite lifestyle modifications <Rohan Padilla - Last Filed: 12/09/17 12:04> Meds - Medications Medications: Current Medications Acetaminophen (Tylenol 325mg Tab) 650 mg PO Q6 PRN PRN Reason: Pain, moderate (4-7) Last Admin: 12/08/17 10:27 Dose: 650 mg Aspirin (Aspirin Chewable) 81 mg PO DAILY [facility] Last Admin: 12/09/17 09:30 Dose: 81 mg Calcium Carbonate (Tums) 500 mg PO BID [facility] Last Admin: 12/09/17 09:30 Dose: 500 mg Clotrimazole (Lotrimin 1%) 0 gm TOP BID [facility] Dextrose (Dextrose 50% Inj) 0 ml IV STAT PRN; Protocol PRN Reason: Hypoglycemia Protocol Dextrose (Glutose 15) 0 gm PO ONCE PRN; Protocol PRN Reason: Hypoglycemia Protocol Enoxaparin Sodium (Lovenox) 40 mg SC DAILY [facility] Last Admin: 12/09/17 09:30 Dose: 40 mg Glucagon (Glucagen Diagnostic Kit) 0 mg IM STAT PRN; Protocol PRN Reason: Hypoglycemia Protocol Sodium Chloride (Sodium Chloride 0.9%) 1,000 mls @ 100 mls/hr IV .Q10H [facility] Last Admin: 12/08/17 21:42 Dose: Not Given Dextrose (Dextrose 5% In Water 1000 Ml) 1,000 mls @ 0 mls/hr IV .Q0M PRN; Protocol; Per Protocol PRN Reason: Hypoglycemia Protocol Piperacillin Sod/Tazobactam (Sod 3.375 gm/ Sodium Chloride) 100 mls @ 200 mls/ hr IVPB Q8H [facility] PRN Reason: Protocol Last Admin: 12/09/17 11:17 Dose: 200 mls/hr Vancomycin/Sodium Chloride (Vancomycin 1 Gm/Ns 200 Ml) 1 gm in 200 mls @ 133.333 mls/hr IVPB Q24H [facility] PRN Reason: Protocol Stop: 12/15/17 02:01 Insulin Human Regular (Novolin R) 0 unit SC ACHS [facility] PRN Reason: Protocol Last Admin: 12/09/17 08:04 Dose: 4 unit Losartan Potassium (Cozaar) 50 mg PO BID [facility] Last Admin: 12/09/17 09:30 Dose: 50 mg Ondansetron HCl (Zofran Inj) 4 mg IVP DAILY@ONCE PRN PRN Reason: vomitting Pantoprazole Sodium (Protonix Inj) 40 mg IVP DAILY [facility] Last Admin: 12/09/17 09:30 Dose: 40 mg Rosuvastatin Calcium (Crestor) 2.5 mg PO HS [facility] Last Admin: 12/08/17 21:37 Dose: 2.5 mg Results - Vital Signs Recent Vital Signs: Last Vital Signs Temp 97.0 F L 12/09/17 08:25 Pulse 61 12/09/17 08:25 Resp 18 12/09/17 08:25 BP 125/79 12/09/17 08:25 Pulse Ox 98 12/09/17 08:25 - Labs Result Diagrams: 12/09/17 11:45 12/07/17 20:47 Labs: Laboratory Results - last 24 hr 12/08/17 12/08/17 12/08/17 11:53 12:13 17:05 WBC RBC Hgb Hct MCV MCH MCHC RDW Plt Count MPV Neut % (Auto) Lymph % (Auto) [place] % (Auto) Eos % (Auto) Baso % (Auto) Neut # (Auto) Lymph # (Auto) [place] # (Auto) Eos # (Auto) Baso # (Auto) POC Glucose (mg/dL) 221 H 339 H Total Creatine Kinase 165 CK-MB (Mass) 2.37 Troponin I < 0.0120 Vancomycin Trough 12/08/17 12/09/17 12/09/17 20:51 05:57 06:21 WBC RBC Hgb Hct MCV MCH MCHC RDW Plt Count MPV Neut % (Auto) Lymph % (Auto) [place] % (Auto) Eos % (Auto) Baso % (Auto) Neut # (Auto) Lymph # (Auto) [place] # (Auto) Eos # (Auto) Baso # (Auto) POC Glucose (mg/dL) 223 H 316 H Total Creatine Kinase CK-MB (Mass) Troponin I Vancomycin Trough 15.0 H 12/09/17 11:45 WBC 4.2 L RBC 5.09 Hgb 14.7 Hct 43.6 MCV 85.6 MCH 28.9 MCHC 33.7 RDW 13.9 Plt Count 207 MPV 9.3 Neut % (Auto) 65.9 Lymph % (Auto) 23.5 [place] % (Auto) 4.7 Eos % (Auto) 5.5 H Baso % (Auto) 0.4 Neut # (Auto) 2.7 Lymph # (Auto) 1.0 [place] # (Auto) 0.2 Eos # (Auto) 0.2 Baso # (Auto) 0.0 POC Glucose (mg/dL) Total Creatine Kinase CK-MB (Mass) Troponin I Vancomycin Trough Attending/Attestation - Attestation I have personally seen and examined this patient.: Yes I have fully participated in the care of the patient.: Yes I have reviewed all pertinent clinical information: Yes Notes (Text): 12/09/17 11:58 I have seen and examined patient with GI fellow. Agree with above documentation with the following additions. In brief, this is a 57 year old male with history of DM, HTN, PVD who presented to hospital with complaint of right foot pain. He has had prior toe amputations before, currently being treated for lower extremity gangrene. GI called for evaluation of intermittent post prandial vomiting. He has been dealing with similar issues for the past 2 years and was scheduled to see a GI physician in January for further workup. He describes vomiting food content nearly 20-30 minutes following meal consumption which is occasional and not associated with abdominal pain, nausea. He does report significant belching and hiccups, denies rapid food consumption. Currently he is seen resting in bed, appears quite comfortable. Review of vitals from today are normal. DM / HTN PVD Vomiting, post prandial - etiology secondary to diabetic gastroparesis, antibiotic therapy, dietary habits - Advance diet as tolerated, suggest small frequent meals throughout the day - Continue with antibiotic therapy as per medical team - Maintain strict glycemic control - Anti-emetic therapy PRN - Patient would benefit from elective EGD evaluation following resolution of acute symptoms. No further planned GI intervention, will sign off case. Please reconsult as necessary, thank you.
[2017-12-09] MEDS: Enoxaparin 40 mg Syringe SC SCH (09:30)
[2017-12-09] MEDS: Calcium Carbonate 500 mg Chewable Antacid Tab PO SCH ×2 (09:30→17:49)
[2017-12-09] MEDS ORDERED: Bacitracin Ointment 30 GM TUBE TOP SCH (10:00)
[2017-12-09 11:54] LABS: BASO % 0.4 % (0.0-2.0); EOS # 0.2 K/uL (0.0-0.7); EOS % 5.5 % (0.0-4.0); HEMOGLOBIN 14.7 g/dL (12.0-18.0); LYMPH % 23.5 % (20.0-40.0); MEAN CELL VOLUME 85.6 fL (80.0-94.0); MEAN CORPUSCULAR HEMOGLOBIN 28.9 pg (27.0-31.0); MEAN CORPUSCULAR HGB CONC 33.7 g/dL (33.0-37.0); MEAN PLATELET VOLUME 9.3 fL (7.2-11.7); MONO # 0.2 K/uL (0.0-0.8); MONO % 4.7 % (0.0-10.0); NEUT # 2.7 K/uL (1.8-7.0); NEUT % 65.9 % (50.0-75.0); NRBC % 0.2 % (0.0-2.0); RBC 5.09 Mil/uL (4.40-5.90); RED CELL DISTRIBUTION WIDTH 13.9 % (11.5-14.5); WHITE BLOOD COUNT 4.2 K/uL (4.8-10.8)
[2017-12-09 12:19] LABS: ALB/GLOB RATIO 1.1 (1.0-2.1); ALBUMIN 3.4 g/dL (3.5-5.0); ALT/SGPT 28 U/L (21-72); AST/SGOT 31 U/L (17-59); BLOOD UREA NITROGEN 14 mg/dL (9-20); CALCIUM 7.9 mg/dl (8.6-10.4); GFR AFRICAN-AMERICAN > 60; GFR NON-AFRICAN AMERICAN > 60
[2017-12-09] MEDS ORDERED: (Novolin R) Insulin Human Regular 100 units/ml vial SC ONE (13:00)
[2017-12-09] MEDS: Clotrimazole 1% Cream(30 gm) TOP SCH ×2 (14:21→20:00)
--- NOTE | 2017-12-09 14:25 | CP.PCM.PN ---
Subjective - Date & Time of Evaluation Date of Evaluation: 12/09/17 Time of Evaluation: 14:16 - Subjective Subjective: Podiatry Consult Note- Dr. Rodgers 57 yo male patient was seen at bedside this morning concerning right 3rd digit gangrene. Patient was advised that Dr. Rodgers recommends surgical intervention of right 3rd digit partial amputation. Details of the surgical plan was explain to the patient, which he agrees with podiatry plan. Patient denies of any N/V/F/ C or SOB associated with right foot wound. Objective - Vital Signs/Intake and Output Vital Signs (last 24 hours): Temp Pulse Resp BP Pulse Ox 97.0 F L 61 18 125/79 98 12/09/17 08:25 12/09/17 08:25 12/09/17 08:25 12/09/17 08:25 12/09/17 08:25 Intake and Output: 12/09/17 12/09/17 06:59 18:59 Output Total 950 Balance -950 - Medications Medications: Current Medications Acetaminophen (Tylenol 325mg Tab) 650 mg PO Q6 PRN PRN Reason: Pain, moderate (4-7) Last Admin: 12/08/17 10:27 Dose: 650 mg Aspirin (Aspirin Chewable) 81 mg PO DAILY [facility] Last Admin: 12/09/17 09:30 Dose: 81 mg Calcium Carbonate (Tums) 500 mg PO BID [facility] Last Admin: 12/09/17 09:30 Dose: 500 mg Clotrimazole (Lotrimin 1%) 0 gm TOP BID [facility] Dextrose (Dextrose 50% Inj) 0 ml IV STAT PRN; Protocol PRN Reason: Hypoglycemia Protocol Dextrose (Glutose 15) 0 gm PO ONCE PRN; Protocol PRN Reason: Hypoglycemia Protocol Enoxaparin Sodium (Lovenox) 40 mg SC DAILY [facility] Last Admin: 12/09/17 09:30 Dose: 40 mg Glucagon (Glucagen Diagnostic Kit) 0 mg IM STAT PRN; Protocol PRN Reason: Hypoglycemia Protocol Sodium Chloride (Sodium Chloride 0.9%) 1,000 mls @ 100 mls/hr IV .Q10H [facility] Last Admin: 12/08/17 21:42 Dose: Not Given Dextrose (Dextrose 5% In Water 1000 Ml) 1,000 mls @ 0 mls/hr IV .Q0M PRN; Protocol; Per Protocol PRN Reason: Hypoglycemia Protocol Piperacillin Sod/Tazobactam (Sod 3.375 gm/ Sodium Chloride) 100 mls @ 200 mls/ hr IVPB Q8H [facility] PRN Reason: Protocol Last Admin: 12/09/17 11:17 Dose: 200 mls/hr Vancomycin/Sodium Chloride (Vancomycin 1 Gm/Ns 200 Ml) 1 gm in 200 mls @ 133.333 mls/hr IVPB Q24H [facility] PRN Reason: Protocol Stop: 12/15/17 02:01 Insulin Human Regular (Novolin R) 0 unit SC ACHS [facility] PRN Reason: Protocol Last Admin: 12/09/17 12:03 Dose: 6 unit Losartan Potassium (Cozaar) 50 mg PO BID [facility] Last Admin: 12/09/17 09:30 Dose: 50 mg Ondansetron HCl (Zofran Inj) 4 mg IVP DAILY@ONCE PRN PRN Reason: vomitting Pantoprazole Sodium (Protonix Inj) 40 mg IVP DAILY [facility] Last Admin: 12/09/17 09:30 Dose: 40 mg Rosuvastatin Calcium (Crestor) 2.5 mg PO HS [facility] Last Admin: 12/08/17 21:37 Dose: 2.5 mg - Labs Labs: 12/09/17 11:45 12/09/17 11:45 PT 10.1 SECONDS (9.7-12.2) 12/07/17 20:47 INR 0.9 12/07/17 20:47 APTT 33 SECONDS (21-34) 12/07/17 20:47 - Constitutional Appears: Well, Non-toxic, No Acute Distress - Head Exam Head Exam: ATRAUMATIC - Extremities Exam Additional comments: Lower extremity focused examination: DERM- Ulceration noted to the distal right 3rd digit plantarly measuring approximately 2 cm x 2 x .3 cm with necrotic skin to the distal aspect of the toe. Wound base is mainly granular, mal odor noted, no purulence drainage, mild serous drainage noted, no erythema, no streaking, no fluctanance or abscess appreciated. Dried lanced bullous lesions noted to lateral aspect 5ht digit measuring approximately 1 cm x 1 cm (no drainage no signs infection) VASC- pedal pulses fully palpable 2/4 bilaterally, skin temperature warm to cool from proximal knees to distal digits , cap refill < 3 sec to all digits, moderate edema noted to distal aspect right 3rd digit NEURO- gross sensation diminished and protective pedal sensation absent ORTHO- amputations of R hallux and R 2nd digit, no pain with palpation to ulceration site - Neurological Exam Neurological Exam: Alert, Awake, Oriented x3 - Psychiatric Exam Psychiatric exam: Normal Affect, Normal Mood - Skin Skin Exam: Normal Color, Warm Assessment and Plan - Assessment and Plan (Free Text) Assessment: 57 yo male patient with right 3rd digit distal ulceration with dry gangrene Plan: Patient seen and examined Discussed plan in details with attending Dr. Rodgers Labs, vitals, chart reviewed, afebrile WBC=4.2 MRI significant for 3rd digit osteomyelitis WCX - pending Betadine applied to ulceration, dressed with dsd, and kerlix Surgical shoe ordered To be WBAT in surgical shoes at all times bilaterally Podiatry will continue to follow Podiatry plan to take the patient to OR for Right 3rd digit amputation on
[2017-12-09 16:07] VITALS: RESP 20
--- NOTE | 2017-12-09 19:35 | CP.PCM.PN ---
Subjective - Date & Time of Evaluation Date of Evaluation: 12/09/17 Time of Evaluation: 09:00 - Subjective Subjective: no fever right 3rd toe with necrotic tip no ascending cellulitis cultures pending for possible or amp next week Objective - Vital Signs/Intake and Output Vital Signs (last 24 hours): Temp Pulse Resp BP Pulse Ox 98 F 67 20 146/89 98 12/09/17 16:00 12/09/17 16:00 12/09/17 16:00 12/09/17 16:00 12/09/17 16:00 - Medications Medications: Current Medications Acetaminophen (Tylenol 325mg Tab) 650 mg PO Q6 PRN PRN Reason: Pain, moderate (4-7) Last Admin: 12/08/17 10:27 Dose: 650 mg Aspirin (Aspirin Chewable) 81 mg PO DAILY [facility] Last Admin: 12/09/17 09:30 Dose: 81 mg Calcium Carbonate (Tums) 500 mg PO BID [facility] Last Admin: 12/09/17 17:49 Dose: 500 mg Clotrimazole (Lotrimin 1%) 0 gm TOP BID [facility] Last Admin: 12/09/17 14:21 Dose: 1 applic Dextrose (Dextrose 50% Inj) 0 ml IV STAT PRN; Protocol PRN Reason: Hypoglycemia Protocol Dextrose (Glutose 15) 0 gm PO ONCE PRN; Protocol PRN Reason: Hypoglycemia Protocol Enoxaparin Sodium (Lovenox) 40 mg SC DAILY [facility] Last Admin: 12/09/17 09:30 Dose: 40 mg Glucagon (Glucagen Diagnostic Kit) 0 mg IM STAT PRN; Protocol PRN Reason: Hypoglycemia Protocol Sodium Chloride (Sodium Chloride 0.9%) 1,000 mls @ 100 mls/hr IV .Q10H [facility] Last Admin: 12/08/17 21:42 Dose: Not Given Dextrose (Dextrose 5% In Water 1000 Ml) 1,000 mls @ 0 mls/hr IV .Q0M PRN; Protocol; Per Protocol PRN Reason: Hypoglycemia Protocol Piperacillin Sod/Tazobactam (Sod 3.375 gm/ Sodium Chloride) 100 mls @ 200 mls/ hr IVPB Q8H [facility] PRN Reason: Protocol Last Admin: 12/09/17 18:38 Dose: 200 mls/hr Vancomycin/Sodium Chloride (Vancomycin 1 Gm/Ns 200 Ml) 1 gm in 200 mls @ 133.333 mls/hr IVPB Q24H [facility] PRN Reason: Protocol Stop: 12/15/17 02:01 Insulin Human Regular (Novolin R) 0 unit SC ACHS [facility] PRN Reason: Protocol Last Admin: 12/09/17 17:03 Dose: 5 unit Losartan Potassium (Cozaar) 50 mg PO BID [facility] Last Admin: 12/09/17 17:49 Dose: 50 mg Ondansetron HCl (Zofran Inj) 4 mg IVP DAILY@ONCE PRN PRN Reason: vomitting Pantoprazole Sodium (Protonix Inj) 40 mg IVP DAILY [facility] Last Admin: 12/09/17 09:30 Dose: 40 mg Rosuvastatin Calcium (Crestor) 2.5 mg PO HS [facility] Last Admin: 12/08/17 21:37 Dose: 2.5 mg - Labs Labs: 12/09/17 11:45 12/09/17 11:45 PT 10.1 SECONDS (9.7-12.2) 12/07/17 20:47 INR 0.9 12/07/17 20:47 APTT 33 SECONDS (21-34) 12/07/17 20:47 - Constitutional Appears: Well - Head Exam Head Exam: ATRAUMATIC, NORMAL INSPECTION, NORMOCEPHALIC - Eye Exam Eye Exam: EOMI, Normal appearance, PERRL Pupil Exam: NORMAL ACCOMODATION, PERRL - ENT Exam ENT Exam: Mucous Membranes Moist, Normal Exam - Neck Exam Neck Exam: Full ROM, Normal Inspection. absent: Lymphadenopathy - Respiratory Exam Respiratory Exam: Clear to Ausculation Bilateral, NORMAL BREATHING PATTERN - Cardiovascular Exam Cardiovascular Exam: REGULAR RHYTHM, +S1, +S2. absent: Murmur - GI/Abdominal Exam GI & Abdominal Exam: Soft, Normal Bowel Sounds. absent: Tenderness - Rectal Exam Rectal Exam: NORMAL INSPECTION - Exam Exam: Circumcision, NORMAL INSPECTION - Extremities Exam Extremities Exam: Full ROM, Normal Capillary Refill, Normal Inspection. absent : Joint Swelling, Pedal Edema - Back Exam Back Exam: NORMAL INSPECTION - Neurological Exam Neurological Exam: Alert, Awake, CN II-XII Intact, Normal Gait, Oriented x3 - Psychiatric Exam Psychiatric exam: Normal Affect, Normal Mood - Skin Skin Exam: Dry, Intact, Normal Color, Warm Assessment and Plan (1) Diabetes mellitus Status: Acute (2) Diabetic foot infection Status: Acute (3) Gangrene of toe of right foot Status: Acute - Assessment and Plan (Free Text) Assessment: no fever right 3rd toe with necrotic tip no ascending cellulitis cultures pending for possible or amp next week
--- NOTE | 2017-12-09 19:52 | CP.PCM.PN ---
Subjective - Date & Time of Evaluation Date of Evaluation: 12/09/17 Time of Evaluation: 12:00 - Subjective Subjective: no further pain in chest seen by GI medical treatment, local management for gangrenous toe Objective - Vital Signs/Intake and Output Vital Signs (last 24 hours): Temp Pulse Resp BP Pulse Ox 98 F 67 20 146/89 98 12/09/17 16:00 12/09/17 16:00 12/09/17 16:00 12/09/17 16:00 12/09/17 16:00 - Medications Medications: Current Medications Acetaminophen (Tylenol 325mg Tab) 650 mg PO Q6 PRN PRN Reason: Pain, moderate (4-7) Last Admin: 12/08/17 10:27 Dose: 650 mg Aspirin (Aspirin Chewable) 81 mg PO DAILY [facility] Last Admin: 12/09/17 09:30 Dose: 81 mg Calcium Carbonate (Tums) 500 mg PO BID [facility] Last Admin: 12/09/17 17:49 Dose: 500 mg Clotrimazole (Lotrimin 1%) 0 gm TOP BID [facility] Last Admin: 12/09/17 14:21 Dose: 1 applic Dextrose (Dextrose 50% Inj) 0 ml IV STAT PRN; Protocol PRN Reason: Hypoglycemia Protocol Dextrose (Glutose 15) 0 gm PO ONCE PRN; Protocol PRN Reason: Hypoglycemia Protocol Enoxaparin Sodium (Lovenox) 40 mg SC DAILY [facility] Last Admin: 12/09/17 09:30 Dose: 40 mg Glucagon (Glucagen Diagnostic Kit) 0 mg IM STAT PRN; Protocol PRN Reason: Hypoglycemia Protocol Sodium Chloride (Sodium Chloride 0.9%) 1,000 mls @ 100 mls/hr IV .Q10H [facility] Last Admin: 12/08/17 21:42 Dose: Not Given Dextrose (Dextrose 5% In Water 1000 Ml) 1,000 mls @ 0 mls/hr IV .Q0M PRN; Protocol; Per Protocol PRN Reason: Hypoglycemia Protocol Piperacillin Sod/Tazobactam (Sod 3.375 gm/ Sodium Chloride) 100 mls @ 200 mls/ hr IVPB Q8H [facility] PRN Reason: Protocol Last Admin: 12/09/17 18:38 Dose: 200 mls/hr Vancomycin/Sodium Chloride (Vancomycin 1 Gm/Ns 200 Ml) 1 gm in 200 mls @ 133.333 mls/hr IVPB Q24H [facility] PRN Reason: Protocol Stop: 12/15/17 02:01 Insulin Human Regular (Novolin R) 0 unit SC ACHS [facility] PRN Reason: Protocol Last Admin: 12/09/17 17:03 Dose: 5 unit Losartan Potassium (Cozaar) 50 mg PO BID [facility] Last Admin: 12/09/17 17:49 Dose: 50 mg Ondansetron HCl (Zofran Inj) 4 mg IVP DAILY@ONCE PRN PRN Reason: vomitting Pantoprazole Sodium (Protonix Inj) 40 mg IVP DAILY [facility] Last Admin: 12/09/17 09:30 Dose: 40 mg Rosuvastatin Calcium (Crestor) 2.5 mg PO HS [facility] Last Admin: 12/08/17 21:37 Dose: 2.5 mg - Labs Labs: 12/09/17 11:45 12/09/17 11:45 PT 10.1 SECONDS (9.7-12.2) 12/07/17 20:47 INR 0.9 12/07/17 20:47 APTT 33 SECONDS (21-34) 12/07/17 20:47 - Constitutional Appears: Non-toxic - Head Exam Head Exam: ATRAUMATIC - Eye Exam Eye Exam: EOMI - ENT Exam ENT Exam: Mucous Membranes Moist - Neck Exam Neck Exam: absent: Lymphadenopathy, Thyromegaly - Respiratory Exam Respiratory Exam: Clear to Ausculation Bilateral. absent: Rales - Cardiovascular Exam Cardiovascular Exam: REGULAR RHYTHM, Murmur - GI/Abdominal Exam GI & Abdominal Exam: Normal Bowel Sounds. absent: Organomegaly - Rectal Exam Rectal Exam: Deferred - Extremities Exam Extremities Exam: Normal Capillary Refill. 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
[2017-12-09] MEDS: Rosuvastatin Calcium 2.5 mg Tab PO SCH (21:46)
[2017-12-10] MEDS: Vancomycin 1 gm/NS 200 ml 1 GM/200 ML BAG IVPB SCH (01:30)
[2017-12-10] MEDS: Piperacillin/Tazobact 3.375 GM in Sodium Chloride 100 ML IVPB SCH ×3 (03:30→19:01)
[2017-12-10 06:21] LABS: BASO % 0.4 % (0.0-2.0); EOS # 0.2 K/uL (0.0-0.7); EOS % 5.8 % (0.0-4.0); HEMOGLOBIN 14.8 g/dL (12.0-18.0); LYMPH # 1.5 K/uL (1.0-4.3); LYMPH % 34.9 % (20.0-40.0); MEAN CELL VOLUME 84.5 fL (80.0-94.0); MEAN CORPUSCULAR HEMOGLOBIN 29.4 pg (27.0-31.0); MEAN CORPUSCULAR HGB CONC 34.7 g/dL (33.0-37.0); MONO # 0.4 K/uL (0.0-0.8); MONO % 9.1 % (0.0-10.0); NEUT # 2.1 K/uL (1.8-7.0); NEUT % 49.8 % (50.0-75.0); NRBC % 0.1 % (0.0-2.0); RBC 5.04 Mil/uL (4.40-5.90); RED CELL DISTRIBUTION WIDTH 13.5 % (11.5-14.5); WHITE BLOOD COUNT 4.2 K/uL (4.8-10.8)
[2017-12-10 06:43] LABS: ALB/GLOB RATIO 1.2 (1.0-2.1); ALBUMIN 3.5 g/dL (3.5-5.0); ALT/SGPT 24 U/L (21-72); AST/SGOT 25 U/L (17-59); BLOOD UREA NITROGEN 19 mg/dL (9-20); CALCIUM 8.3 mg/dl (8.6-10.4); GFR AFRICAN-AMERICAN > 60; GFR NON-AFRICAN AMERICAN 57
[2017-12-10] MEDS: (Novolin R) Insulin Human Regular 100 units/ml vial SC SCH (08:40)
[2017-12-10] MEDS ORDERED: (Novolog) Insulin Aspart, Recombinant 100 u/ml 10 ml vial SC ONE (10:48)
[2017-12-10] MEDS ORDERED: (Novolin R) Insulin Human Regular 100 units/ml vial SC SCH (10:49)
[2017-12-10] MEDS ORDERED: Calcium Gluconate 4.65 mEq/10 ml Inj IVP ONE (10:53)
--- NOTE | 2017-12-10 11:17 | CP.PCM.PN ---
Addendum entered and electronically signed by Sara Ureña DO 12/10/17 15:46: per Dr. Lawrence, Patient can have Levaquin Original Note: <Sara Ureña - Last Filed: 12/10/17 15:46> Subjective - Date & Time of Evaluation Date of Evaluation: 12/10/17 Time of Evaluation: 11:00 - Subjective Subjective: Progress Note for Dr. Munroe Patient seen and examined at bedside. No acute events overnight. Patient states he's doing well. His eructation is minimal to none. Patient denies chest pain, palpitations, diarrhea, constipation, and abdominal pain. Patient states he is tolerating foot pain. Objective - Vital Signs/Intake and Output Vital Signs (last 24 hours): Temp Pulse Resp BP Pulse Ox 97.3 F L 69 20 155/88 H 97 12/10/17 09:17 12/10/17 09:17 12/10/17 09:17 12/10/17 09:17 12/10/17 09:17 Intake and Output: 12/10/17 12/10/17 06:59 18:59 Intake Total 540 Output Total 750 Balance -210 - Medications Medications: Current Medications Acetaminophen (Tylenol 325mg Tab) 650 mg PO Q6 PRN PRN Reason: Pain, moderate (4-7) Last Admin: 12/08/17 10:27 Dose: 650 mg Aspirin (Aspirin Chewable) 81 mg PO DAILY [facility] Last Admin: 12/09/17 09:30 Dose: 81 mg Calcium Carbonate (Tums) 500 mg PO BID [facility] Last Admin: 12/09/17 17:49 Dose: 500 mg Calcium Gluconate (Calcium Gluconate) 4.65 meq IVP ONCE ONE Stop: 12/10/17 10:54 Clotrimazole (Lotrimin 1%) 0 gm TOP BID [facility] Last Admin: 12/09/17 20:00 Dose: 1 applic Dextrose (Dextrose 50% Inj) 0 ml IV STAT PRN; Protocol PRN Reason: Hypoglycemia Protocol Dextrose (Glutose 15) 0 gm PO ONCE PRN; Protocol PRN Reason: Hypoglycemia Protocol Enoxaparin Sodium (Lovenox) 40 mg SC DAILY [facility] Last Admin: 12/09/17 09:30 Dose: 40 mg Glucagon (Glucagen Diagnostic Kit) 0 mg IM STAT PRN; Protocol PRN Reason: Hypoglycemia Protocol Sodium Chloride (Sodium Chloride 0.9%) 1,000 mls @ 100 mls/hr IV .Q10H [facility] Last Admin: 12/08/17 21:42 Dose: Not Given Dextrose (Dextrose 5% In Water 1000 Ml) 1,000 mls @ 0 mls/hr IV .Q0M PRN; Protocol; Per Protocol PRN Reason: Hypoglycemia Protocol Piperacillin Sod/Tazobactam (Sod 3.375 gm/ Sodium Chloride) 100 mls @ 200 mls/ hr IVPB Q8H [facility] PRN Reason: Protocol Last Admin: 12/10/17 03:30 Dose: 200 mls/hr Vancomycin/Sodium Chloride (Vancomycin 1 Gm/Ns 200 Ml) 1 gm in 200 mls @ 133.333 mls/hr IVPB Q24H [facility] PRN Reason: Protocol Stop: 12/15/17 02:01 Last Admin: 12/10/17 01:30 Dose: 133.333 mls/hr Insulin Human Regular (Novolin R) 0 unit SC ACHS [facility] PRN Reason: Protocol Losartan Potassium (Cozaar) 50 mg PO BID [facility] Last Admin: 12/09/17 17:49 Dose: 50 mg Ondansetron HCl (Zofran Inj) 4 mg IVP DAILY@ONCE PRN PRN Reason: vomitting Last Admin: 12/10/17 06:11 Dose: 4 mg Pantoprazole Sodium (Protonix Inj) 40 mg IVP DAILY [facility] Last Admin: 12/09/17 09:30 Dose: 40 mg Rosuvastatin Calcium (Crestor) 2.5 mg PO HS [facility] Last Admin: 12/09/17 21:46 Dose: 2.5 mg - Labs Labs: 12/10/17 06:12 12/10/17 06:12 PT 10.1 SECONDS (9.7-12.2) 12/07/17 20:47 INR 0.9 12/07/17 20:47 APTT 33 SECONDS (21-34) 12/07/17 20:47 - Constitutional Appears: Non-toxic, In Acute Distress - Head Exam Head Exam: ATRAUMATIC, NORMAL INSPECTION, NORMOCEPHALIC - Eye Exam Eye Exam: EOMI, Normal appearance Pupil Exam: NORMAL ACCOMODATION, PERRL - ENT Exam ENT Exam: Mucous Membranes Moist, Normal Exam - Neck Exam Neck Exam: Full ROM, Normal Inspection - Respiratory Exam Respiratory Exam: Clear to Ausculation Bilateral, NORMAL BREATHING PATTERN. absent: Accessory Muscle Use - Cardiovascular Exam Cardiovascular Exam: REGULAR RHYTHM, +S1, +S2. absent: Bradycardia, Tachycardia - GI/Abdominal Exam GI & Abdominal Exam: Soft, Normal Bowel Sounds. absent: Tenderness - Rectal Exam Rectal Exam: NORMAL INSPECTION - Extremities Exam Extremities Exam: Full ROM. absent: Pedal Edema Additional comments: third toe gangrene. - Back Exam Back Exam: Full ROM, NORMAL INSPECTION. absent: CVA tenderness (L), CVA tenderness (R) - Neurological Exam Neurological Exam: Alert, Awake, CN II-XII Intact, Oriented x3 Assessment and Plan - Assessment and Plan (Free Text) Assessment: 57M presents with Chest pain, intermittent right arm numbness, bloating, eructation. Chest pain ACS r/o VALENTINA negative x 3 Cardiology: Dr. Berkley Murphy stress test and echo in August, no cardiac interventions or workup at this time. Patient is medically optimized. Dyspepsia/GERD Patient complains of eructation, vomiting, smoking history GI Consult: Dr. Nelson Per GI: Patient to sit up 1 hour postprandial protonix Tums BID Pain Tylenol 650 mg PO Q6H PRN ASA 81 mg PO QD HTN Cozaar 50mg PO BID DM, hyperglycemia Insulin SS, switched to high insulin ss at 11:23 am, discontinued Patient restarted on Humalin 70/30 30 u BID Hypoglycemic Protocol Right gangrenous toe blood cultures negative 12/07 wound cultures negative 12/07 Podiatry Consult: Dr. Rodgers MRI positive for acute osteomyelitis of 3rd right mtp and changes found in first phalanx Podiatry Consult: Dr. Rodgers Friday 12/15 patient is scheduled for Right 3rd digit partial amputation. Vancomycin 1 gm IVPB Q24H Zosyn 3.375gm IVPB Q8H Balanitis 1% clotrimazole (lotrimin) ointment Prophylaxis Lovenox 40mg SC QD Protonix 40mg IVP QD Diet: carbohydrate consistent diet Dispo: Friday 12/15 patient is scheduled for right 3rd digit partial amputation. Patient is medically optimized for surgery. discussed with Dr. Shaneka Ureña DO PGY1 <Cecille Munroe V - Last Filed: 12/11/17 15:38> Objective - Vital Signs/Intake and Output Vital Signs (last 24 hours): Temp Pulse Resp BP Pulse Ox 97.6 F 93 H 20 115/69 97 12/11/17 09:16 12/11/17 09:16 12/11/17 09:16 12/11/17 09:16 12/11/17 09:16 - Medications Medications: Current Medications Acetaminophen (Tylenol 325mg Tab) 650 mg PO Q6 PRN PRN Reason: Pain, moderate (4-7) Last Admin: 12/08/17 10:27 Dose: 650 mg Aspirin (Aspirin Chewable) 81 mg PO DAILY [facility] Last Admin: 12/11/17 09:26 Dose: 81 mg Calcium Carbonate (Tums) 500 mg PO BID [facility] Last Admin: 12/11/17 09:30 Dose: 500 mg Clotrimazole (Lotrimin 1%) 0 gm TOP BID [facility] Last Admin: 12/11/17 12:52 Dose: 1 applic Dextrose (Dextrose 50% Inj) 0 ml IV STAT PRN; Protocol PRN Reason: Hypoglycemia Protocol Dextrose (Glutose 15) 0 gm PO ONCE PRN; Protocol PRN Reason: Hypoglycemia Protocol Enoxaparin Sodium (Lovenox) 40 mg SC DAILY [facility] Last Admin: 12/11/17 09:26 Dose: 40 mg Glucagon (Glucagen Diagnostic Kit) 0 mg IM STAT PRN; Protocol PRN Reason: Hypoglycemia Protocol Piperacillin Sod/Tazobactam (Sod 3.375 gm/ Sodium Chloride) 100 mls @ 200 mls/ hr IVPB Q8H [facility] PRN Reason: Protocol Last Admin: 12/11/17 10:08 Dose: Not Given Vancomycin/Sodium Chloride (Vancomycin 1 Gm/Ns 200 Ml) 1 gm in 200 mls @ 133.333 mls/hr IVPB Q24H [facility] PRN Reason: Protocol Stop: 12/15/17 02:01 Last Admin: 12/11/17 02:08 Dose: 133.333 mls/hr Sodium Chloride (Sodium Chloride 0.9%) 1,000 mls @ 125 mls/hr IV .Q8H [facility] Last Admin: 12/11/17 09:33 Dose: Not Given Insulin Aspart (Novolog) 14 unit SC AC [facility] Last Admin: 12/11/17 12:52 Dose: 14 unit Insulin Aspart (Novolog) 0 unit SC ACHS [facility] Last Admin: 12/11/17 12:24 Dose: Not Given Insulin Glargine (Lantus) 30 unit SC [facility] Last Admin: 12/10/17 22:03 Dose: 30 unit Losartan Potassium (Cozaar) 50 mg PO BID [facility] Last Admin: 12/11/17 09:26 Dose: 50 mg Ondansetron HCl (Zofran Inj) 4 mg IVP DAILY@ONCE PRN PRN Reason: vomitting Last Admin: 12/10/17 06:11 Dose: 4 mg Pantoprazole Sodium (Protonix Inj) 40 mg IVP DAILY [facility] Last Admin: 12/11/17 09:27 Dose: 40 mg Rosuvastatin Calcium (Crestor) 2.5 mg PO HS [facility] Last Admin: 12/10/17 22:03 Dose: 2.5 mg - Labs Labs: 12/11/17 08:05 12/11/17 08:05 PT 10.1 SECONDS (9.7-12.2) 12/07/17 20:47 INR 0.9 12/07/17 20:47 APTT 33 SECONDS (21-34) 12/07/17 20:47 Attending/Attestation - Attestation I have personally seen and examined this patient.: Yes I have fully participated in the care of the patient.: Yes I have reviewed all pertinent clinical information, including history, physical exam and plan: Yes Notes (Text): This is late computer entry for 12/10/17. Patient seen, examined and case discussed with day-time resident. Patient's sugars are uncontrolled. Patient restarted on his home regimen of insulin Novolin 70/30 30 units sub12H since he is able to eat and appear comfortable. GI has signed off; recommended to f/u outpatient. Podiatry intervention is scheduled for next week. We will follow-up with infectious disease in regards to regimen. Assessment/Plan 1) Right osteomyelitis of 3rd foot * Podiatry Consult: Dr. Edu Rodgers on board-->help appreciated * Friday 12/15 patient is scheduled for Right 3rd digit partial amputation. * Infectious Disease: Dr Lawrence on board-->help appreciated * Blood cultures negative 12/07 * Wound cultures (12/07/17): Serratia Marcescens, Beta Hemolytic Strep * MRI (12/08/17): signal abnormality noted at the 3rd middle and distal phalanges with patchy decreased T1 signal and pacthy increased STIR signal for acute and or developing acute ostemyelitic changes. Soft tissue ulceration noted at that level. Resection of the 1st digit to the level of the midshaft of the 1st proximal Etc. (further findings per report) * start Vancomycin 1 gm IVPB Q24H * start Zosyn 3.375gm IVPB Q8H 2) Chest pain-->resolved Assessment/Plan * Cardiology: Dr. Gooden on board-->help appreciated * VALENTINA negative x 3 * Myocardial Perfusion (08/25/17): low probability for significant obstructive atherosclerotic coronary artery disease, normal left ventricular ejection fraction * Per consult: The pain is reproducible with tenderness no acute EKG changes and negative enzymes. No KS no need for further cardiac workup at this time, seen by vascular and infectious disease treatment is in order 3) Dyspepsia Vomitting Assessment/Plan * likely secondary to diabetic gastroparesis, antibiotic therapy * Patient complains of eructation, vomiting, smoking history * GI Consult: Dr. Nelson second class welder-->help appreciated * Patient would benefit from elective EGD evaluation following resolution of acute symptoms. No further planned GI intervention, will sign off case. Please reconsult as necessary, thank you * Advance diet as tolerated, suggest small frequent meals throughout the day 4) Hypertension Assessment/Plan * Cozaar 50mg PO BID * Monitor vital signs 5) Diabetes uncontrolled * Endocrinology (Dr. Solorio) on consult-->help appreciated * Insulin SS * Hypoglycemic Protocol * a1c: 9.3 * Novolin 70/30 30 units subq 12H * Cozaar 50mg PO BID 6) Balanitis * Patient seen and examined with resident at bedside as witnessed during exam. * 1% clotrimazole (lotrimin) ointment * Patient has frequent yeast infections while on IV abx 7) Prophylaxis * Lovenox 40mg SC Qdaily * Protonix 40mg IVP QDaily Disposition: patient is pending OR for 3rd toe amputation with podiatry. Will continue IV abx to treat for osteomyelitis
[2017-12-10] MEDS ORDERED: Sod Polystyrene Sulf 15 gm/60 ml Susp PO ONE (11:20)
[2017-12-10] MEDS: Calcium Carbonate 500 mg Chewable Antacid Tab PO SCH ×2 (11:22→17:19)
[2017-12-10] MEDS: Enoxaparin 40 mg Syringe SC SCH (11:22)
[2017-12-10] MEDS: Clotrimazole 1% Cream(30 gm) TOP SCH ×2 (11:23→17:18)
--- NOTE | 2017-12-10 15:45 | CP.PCM.PN ---
Subjective - Date & Time of Evaluation Date of Evaluation: 12/10/17 Time of Evaluation: 11:55 - Subjective Subjective: Podiatry Consult Note- Dr. Rodgers 57 yo male patient was seen at bedside this morning concerning right 3rd digit gangrene. Patient resting in bed, NAD, AAOx3. Patient denies of any N/V/F/C or SOB associated with right foot wound. Patient to OR for Right foot 3rd digit amputation on 12/15/17Wednesday Objective - Vital Signs/Intake and Output Vital Signs (last 24 hours): Temp Pulse Resp BP Pulse Ox 97.3 F L 69 20 155/88 H 97 12/10/17 09:17 12/10/17 09:17 12/10/17 09:17 12/10/17 09:17 12/10/17 09:17 Intake and Output: 12/10/17 12/10/17 06:59 18:59 Intake Total 540 Output Total 750 Balance -210 - Medications Medications: Current Medications Acetaminophen (Tylenol 325mg Tab) 650 mg PO Q6 PRN PRN Reason: Pain, moderate (4-7) Last Admin: 12/08/17 10:27 Dose: 650 mg Aspirin (Aspirin Chewable) 81 mg PO DAILY [facility] Last Admin: 12/10/17 11:22 Dose: 81 mg Calcium Carbonate (Tums) 500 mg PO BID [facility] Last Admin: 12/10/17 11:22 Dose: 500 mg Clotrimazole (Lotrimin 1%) 0 gm TOP BID [facility] Last Admin: 12/10/17 11:23 Dose: 1 applic Dextrose (Dextrose 50% Inj) 0 ml IV STAT PRN; Protocol PRN Reason: Hypoglycemia Protocol Dextrose (Glutose 15) 0 gm PO ONCE PRN; Protocol PRN Reason: Hypoglycemia Protocol Enoxaparin Sodium (Lovenox) 40 mg SC DAILY [facility] Last Admin: 12/10/17 11:22 Dose: 40 mg Glucagon (Glucagen Diagnostic Kit) 0 mg IM STAT PRN; Protocol PRN Reason: Hypoglycemia Protocol Sodium Chloride (Sodium Chloride 0.9%) 1,000 mls @ 100 mls/hr IV .Q10H [facility] Last Admin: 12/08/17 21:42 Dose: Not Given Dextrose (Dextrose 5% In Water 1000 Ml) 1,000 mls @ 0 mls/hr IV .Q0M PRN; Protocol; Per Protocol PRN Reason: Hypoglycemia Protocol Piperacillin Sod/Tazobactam (Sod 3.375 gm/ Sodium Chloride) 100 mls @ 200 mls/ hr IVPB Q8H [facility] PRN Reason: Protocol Last Admin: 12/10/17 12:06 Dose: 200 mls/hr Vancomycin/Sodium Chloride (Vancomycin 1 Gm/Ns 200 Ml) 1 gm in 200 mls @ 133.333 mls/hr IVPB Q24H [facility] PRN Reason: Protocol Stop: 12/15/17 02:01 Last Admin: 12/10/17 01:30 Dose: 133.333 mls/hr Insulin Aspart (Novolog) 14 unit SC AC [facility] Insulin Aspart (Novolog) 0 unit SC ACHS [facility] Insulin Glargine (Lantus) 30 unit SC HS [facility] Losartan Potassium (Cozaar) 50 mg PO BID [facility] Last Admin: 12/10/17 11:22 Dose: 50 mg Ondansetron HCl (Zofran Inj) 4 mg IVP DAILY@ONCE PRN PRN Reason: vomitting Last Admin: 12/10/17 06:11 Dose: 4 mg Pantoprazole Sodium (Protonix Inj) 40 mg IVP DAILY [facility] Last Admin: 12/10/17 11:22 Dose: 40 mg Rosuvastatin Calcium (Crestor) 2.5 mg PO HS [facility] Last Admin: 12/09/17 21:46 Dose: 2.5 mg - Labs Labs: 12/10/17 06:12 12/10/17 06:12 PT 10.1 SECONDS (9.7-12.2) 12/07/17 20:47 INR 0.9 12/07/17 20:47 APTT 33 SECONDS (21-34) 12/07/17 20:47 - Constitutional Appears: Well, Non-toxic, No Acute Distress - Extremities Exam Additional comments: Lower extremity focused examination: DERM- Ulceration noted to the distal right 3rd digit plantarly measuring approximately 2 cm x 2 x .3 cm with necrotic skin to the distal aspect of the toe. Wound base is mainly granular, mal odor noted, no purulence drainage, mild serous drainage noted, no erythema, no streaking, no fluctanance or abscess appreciated. Dried lanced bullous lesions noted to lateral aspect 5th digit measuring approximately 1 cm x 1 cm VASC- pedal pulses fully palpable 2/4 bilaterally, skin temperature warm to cool from proximal knees to distal digits , cap refill < 3 sec to all digits, moderate edema noted to distal aspect right 3rd digit NEURO- gross sensation diminished and protective pedal sensation absent ORTHO- amputations of R hallux and R 2nd digit, no pain with palpation to ulceration site - Neurological Exam Neurological Exam: Awake. absent: Oriented x3 - Psychiatric Exam Psychiatric exam: Normal Affect, Normal Mood Assessment and Plan - Assessment and Plan (Free Text) Assessment: 57 yo male patient with right 3rd digit distal ulceration with dry gangrene Plan: Patient seen and examined Discussed plan in details with attending Dr. Rodgers Labs, vitals, chart reviewed, afebrile WBC=4.2 MRI significant for 3rd digit osteomyelitis WCX Right foot - Serratia Marcescens, Beta Hemolytic Strep Grp B with sensitivity Betadine applied to ulceration, dressed with dsd, and kerlix WBAT in surgical shoes at all times bilaterally Podiatry will continue to follow Patient to OR 12/15/17 8:30AM with Dr. Rodgers for Right 3rd digit amp
[2017-12-10] MEDS: (Novolog) Insulin Aspart, Recombinant 100 u/ml 10 ml vial SC SCH ×3 (16:32→23:36)
--- NOTE | 2017-12-10 17:14 | CP.PCM.PN ---
Subjective - Date & Time of Evaluation Date of Evaluation: 12/10/17 Time of Evaluation: 09:00 - Subjective Subjective: pt wants to wait before surg d/c on PO rx for follow up next week Objective - Vital Signs/Intake and Output Vital Signs (last 24 hours): Temp Pulse Resp BP Pulse Ox 97.9 F 66 20 144/85 98 12/10/17 15:00 12/10/17 15:00 12/10/17 15:00 12/10/17 15:00 12/10/17 15:00 Intake and Output: 12/10/17 12/10/17 06:59 18:59 Intake Total 540 Output Total 750 Balance -210 - Medications Medications: Current Medications Acetaminophen (Tylenol 325mg Tab) 650 mg PO Q6 PRN PRN Reason: Pain, moderate (4-7) Last Admin: 12/08/17 10:27 Dose: 650 mg Aspirin (Aspirin Chewable) 81 mg PO DAILY [facility] Last Admin: 12/10/17 11:22 Dose: 81 mg Calcium Carbonate (Tums) 500 mg PO BID [facility] Last Admin: 12/10/17 11:22 Dose: 500 mg Clotrimazole (Lotrimin 1%) 0 gm TOP BID [facility] Last Admin: 12/10/17 11:23 Dose: 1 applic Dextrose (Dextrose 50% Inj) 0 ml IV STAT PRN; Protocol PRN Reason: Hypoglycemia Protocol Dextrose (Glutose 15) 0 gm PO ONCE PRN; Protocol PRN Reason: Hypoglycemia Protocol Enoxaparin Sodium (Lovenox) 40 mg SC DAILY [facility] Last Admin: 12/10/17 11:22 Dose: 40 mg Glucagon (Glucagen Diagnostic Kit) 0 mg IM STAT PRN; Protocol PRN Reason: Hypoglycemia Protocol Dextrose (Dextrose 5% In Water 1000 Ml) 1,000 mls @ 0 mls/hr IV .Q0M PRN; Protocol; Per Protocol PRN Reason: Hypoglycemia Protocol Piperacillin Sod/Tazobactam (Sod 3.375 gm/ Sodium Chloride) 100 mls @ 200 mls/ hr IVPB Q8H [facility] PRN Reason: Protocol Last Admin: 12/10/17 12:06 Dose: 200 mls/hr Vancomycin/Sodium Chloride (Vancomycin 1 Gm/Ns 200 Ml) 1 gm in 200 mls @ 133.333 mls/hr IVPB Q24H [facility] PRN Reason: Protocol Stop: 12/15/17 02:01 Last Admin: 12/10/17 01:30 Dose: 133.333 mls/hr Sodium Chloride (Sodium Chloride 0.9%) 1,000 mls @ 125 mls/hr IV .Q8H [facility] Insulin Aspart (Novolog) 14 unit SC AC [facility] Insulin Aspart (Novolog) 0 unit SC ACHS [facility] Last Admin: 12/10/17 16:32 Dose: Not Given Insulin Glargine (Lantus) 30 unit SC HS [facility] Losartan Potassium (Cozaar) 50 mg PO BID [facility] Last Admin: 12/10/17 11:22 Dose: 50 mg Ondansetron HCl (Zofran Inj) 4 mg IVP DAILY@ONCE PRN PRN Reason: vomitting Last Admin: 12/10/17 06:11 Dose: 4 mg Pantoprazole Sodium (Protonix Inj) 40 mg IVP DAILY [facility] Last Admin: 12/10/17 11:22 Dose: 40 mg Rosuvastatin Calcium (Crestor) 2.5 mg PO [facility] Last Admin: 12/09/17 21:46 Dose: 2.5 mg - Labs Labs: 12/10/17 06:12 12/10/17 06:12 PT 10.1 SECONDS (9.7-12.2) 12/07/17 20:47 INR 0.9 12/07/17 20:47 APTT 33 SECONDS (21-34) 12/07/17 20:47 - Constitutional Appears: Well - Head Exam Head Exam: ATRAUMATIC, NORMAL INSPECTION, NORMOCEPHALIC - Eye Exam Eye Exam: EOMI, Normal appearance, PERRL Pupil Exam: NORMAL ACCOMODATION, PERRL - ENT Exam ENT Exam: Mucous Membranes Moist, Normal Exam - Neck Exam Neck Exam: Full ROM, Normal Inspection. absent: Lymphadenopathy - Respiratory Exam Respiratory Exam: Clear to Ausculation Bilateral, NORMAL BREATHING PATTERN - Cardiovascular Exam Cardiovascular Exam: REGULAR RHYTHM, +S1, +S2. absent: Murmur - GI/Abdominal Exam GI & Abdominal Exam: Soft, Normal Bowel Sounds. absent: Tenderness - Rectal Exam Rectal Exam: NORMAL INSPECTION - Exam Exam: Circumcision, NORMAL INSPECTION - Extremities Exam Extremities Exam: Full ROM, Normal Capillary Refill, Normal Inspection. absent : Joint Swelling, Pedal Edema - Back Exam Back Exam: NORMAL INSPECTION - Neurological Exam Neurological Exam: Alert, Awake, CN II-XII Intact, Normal Gait, Oriented x3 - Psychiatric Exam Psychiatric exam: Normal Affect, Normal Mood - Skin Skin Exam: Dry, Intact, Normal Color, Warm Assessment and Plan (1) Diabetes mellitus Status: Acute (2) Diabetic foot infection Status: Acute (3) Gangrene of toe of right foot Status: Acute
[2017-12-10] MEDS: Sodium Chloride 0.9% 1,000 ML IV SCH (17:21)
[2017-12-10] MEDS ORDERED: (Novolin 70/30) NPH/Regular 70/30 Units/ml 10 ml vial SC SCH (18:00)
--- NOTE | 2017-12-10 21:43 | CP.PCM.PN ---
Subjective - Date & Time of Evaluation Date of Evaluation: 12/10/17 Time of Evaluation: 20:00 - Subjective Subjective: Comfortable in bed no chest pain, no foot pain, on local treatment and for possible amputation Objective - Vital Signs/Intake and Output Vital Signs (last 24 hours): Temp Pulse Resp BP Pulse Ox 97.9 F 98 H 20 144/85 98 12/10/17 15:00 12/10/17 20:14 12/10/17 15:00 12/10/17 15:00 12/10/17 15:00 - Medications Medications: Current Medications Acetaminophen (Tylenol 325mg Tab) 650 mg PO Q6 PRN PRN Reason: Pain, moderate (4-7) Last Admin: 12/08/17 10:27 Dose: 650 mg Aspirin (Aspirin Chewable) 81 mg PO DAILY [facility] Last Admin: 12/10/17 11:22 Dose: 81 mg Calcium Carbonate (Tums) 500 mg PO BID [facility] Last Admin: 12/10/17 17:19 Dose: 500 mg Clotrimazole (Lotrimin 1%) 0 gm TOP BID [facility] Last Admin: 12/10/17 17:18 Dose: 1 applic Dextrose (Dextrose 50% Inj) 0 ml IV STAT PRN; Protocol PRN Reason: Hypoglycemia Protocol Dextrose (Glutose 15) 0 gm PO ONCE PRN; Protocol PRN Reason: Hypoglycemia Protocol Enoxaparin Sodium (Lovenox) 40 mg SC DAILY [facility] Last Admin: 12/10/17 11:22 Dose: 40 mg Glucagon (Glucagen Diagnostic Kit) 0 mg IM STAT PRN; Protocol PRN Reason: Hypoglycemia Protocol Dextrose (Dextrose 5% In Water 1000 Ml) 1,000 mls @ 0 mls/hr IV .Q0M PRN; Protocol; Per Protocol PRN Reason: Hypoglycemia Protocol Piperacillin Sod/Tazobactam (Sod 3.375 gm/ Sodium Chloride) 100 mls @ 200 mls/ hr IVPB Q8H [facility] PRN Reason: Protocol Last Admin: 12/10/17 19:01 Dose: 200 mls/hr Vancomycin/Sodium Chloride (Vancomycin 1 Gm/Ns 200 Ml) 1 gm in 200 mls @ 133.333 mls/hr IVPB Q24H [facility] PRN Reason: Protocol Stop: 12/15/17 02:01 Last Admin: 12/10/17 01:30 Dose: 133.333 mls/hr Sodium Chloride (Sodium Chloride 0.9%) 1,000 mls @ 125 mls/hr IV .Q8H [facility] Last Admin: 12/10/17 17:21 Dose: 125 mls/hr Insulin Aspart (Novolog) 14 unit SC AC [facility] Last Admin: 12/10/17 17:35 Dose: 14 unit Insulin Aspart (Novolog) 0 unit SC ACHS [facility] Last Admin: 12/10/17 16:32 Dose: Not Given Insulin Glargine (Lantus) 30 unit SC [facility] Losartan Potassium (Cozaar) 50 mg PO BID [facility] Last Admin: 12/10/17 17:19 Dose: 50 mg Ondansetron HCl (Zofran Inj) 4 mg IVP DAILY@ONCE PRN PRN Reason: vomitting Last Admin: 12/10/17 06:11 Dose: 4 mg Pantoprazole Sodium (Protonix Inj) 40 mg IVP DAILY [facility] Last Admin: 12/10/17 11:22 Dose: 40 mg Rosuvastatin Calcium (Crestor) 2.5 mg PO [facility] Last Admin: 12/09/17 21:46 Dose: 2.5 mg - Labs Labs: 12/10/17 06:12 12/10/17 06:12 PT 10.1 SECONDS (9.7-12.2) 12/07/17 20:47 INR 0.9 12/07/17 20:47 APTT 33 SECONDS (21-34) 12/07/17 20:47 - Constitutional Appears: Non-toxic - Head Exam Head Exam: ATRAUMATIC - Eye Exam Eye Exam: EOMI - ENT Exam ENT Exam: Mucous Membranes Moist - Neck Exam Neck Exam: absent: Lymphadenopathy, Thyromegaly - Respiratory Exam Respiratory Exam: Clear to Ausculation Bilateral. absent: Rales - Cardiovascular Exam Cardiovascular Exam: REGULAR RHYTHM. absent: Murmur - GI/Abdominal Exam GI & Abdominal Exam: Normal Bowel Sounds. absent: Organomegaly - Rectal Exam Rectal Exam: Deferred - Extremities Exam Extremities Exam: Normal Capillary Refill. 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
[2017-12-10] MEDS ORDERED: (Lantus) Insulin Glargine, Recombinant SC SCH (22:00)
[2017-12-10] MEDS: Rosuvastatin Calcium 2.5 mg Tab PO SCH (22:03)
--- NOTE | 2017-12-11 00:54 | CON ---
DATE: ENDOCRINOLOGY CONSULTATION LOCATION: Room 650. HISTORY OF PRESENT ILLNESS: This is a 57-year-old male with known history of type 1 insulin-dependant diabetes, is sent in here with sudden onset of precordial chest pain and is being evaluated for acute coronary syndrome and also for vascular management because of gangrene in the right third toe as noted and is being referred now for diabetic evaluation because of persistent hyperglycemic accelerations as noted thereof. PAST MEDICAL HISTORY: As mentioned above, history of type 1 insulin-dependant diabetes, currently using at home a premixed insulin with Humalog 75/25 given as 30 units twice a day; history of hypertensive cardiovascular disease and dyslipidemia; history of diabetic retinopathy and polyneuropathy with early diabetic nephropathy as noted; history of coronary artery disease and peripheral arterial disease and vasculopathy. FAMILY HISTORY: Positive for diabetes and hypertension. SOCIAL HISTORY: The patient admits to longstanding history of nicotine dependence and consuming a pack a day for over 25 years and apparently quit a few months ago. History of chronic alcoholism with heavy liquor intake, but again has slowed down his alcohol intake in the last few months prior to admission. He has previous history of marijuana and cocaine use also as noted. He has a supportive family otherwise. REVIEW OF SYSTEMS: Admits to generalized body weakness with easy fatigability and tiredness and suboptimal energy level. Also admits to dizziness and lightheadedness, worse on the day of admission. Moreover, admits to sudden onset of precordial chest pain, initially starting at the substernal area and spreading to the left precordial area with associated shortness of breath, initially on exertion and then at rest. His oral intake has been variable with nausea, dyspepsia and vague upper abdominal pain. Also, admits to marked polyuria, nocturia, and polydipsia with painful lower extremity paresthesias, especially nocturnally. PHYSICAL EXAMINATION: GENERAL: Average-built male, in no apparent distress. VITAL SIGNS: Blood pressure of 150/90, pulse of 100 beats per minute and regular, temperature 98, respirations 20. Height is 6 feet 5 inches. Weight is 193 pounds. HEENT: Head is normocephalic. Eyes are anicteric with pink conjunctivae. Funduscopy is not possible at this time. Ears, nose, and throat otherwise normal. NECK: Supple. Thyroid gland is normal size. No carotid bruits or cervical adenopathy. CARDIOPULMONARY: Adynamic precordium. S1 and S2, is rapid and regular. LUNGS: Clear to auscultation. ABDOMEN: Flat, soft with positive bowel sounds. EXTREMITIES: No peripheral edema. Pulses are +2 bilaterally. The right foot showed hyperpigmentation and also gangrenous right third toe as noted with partial amputation in the right hallux area. amputation of the right second toe as noted. LABORATORY DATA: His chemistries showed a BUN of 19, sodium 128, potassium 5.6, chloride 97, CO2 is 21, glucose 467, and creatinine 1.3. His glucose levels have ranged from 420 to 464 mg/dL. ASSESSMENT: This is a 57-year-old male with uncontrolled and decompensated type 1 insulin-dependant diabetes, presented here with acute coronary syndrome and undergoing cardiac workup at this time with concomitant gangrene in the right third toe with severe underlying peripheral arterial vasculopathy. He also has diabetic microvascular complications of retinopathy, polyneuropathy and nephropathy with diabetic macrovascular complications of coronary artery disease and peripheral arterial disease and vasculopathy with previous toe amputations in the right foot as noted. PLAN OF MANAGEMENT: Discussed with the patient and staff. We will modify his current insulin regimen and switch him over to a more physiologic basal and bolus insulin drug combination with Lantus to be given as 30 units subcutaneous at bedtime daily, to start tonight. We will also add prandial insulin with NovoLog given as 14 units subcutaneous t.i.d. before meals, to start at dinner time today as ordered. We will modify his coverage scale to obviate hypoglycemia, and detailed orders have been given. We will obtain serial chemistries and supplement accordingly as needed. We will also add hemoglobin A1c to confirm his prior poor glycemic control, and baseline thyroid function studies and lipid panel will be ordered. We will obtain serial chemistries and supplement accordingly as needed. We will follow. Junie Solorio MD
[2017-12-11] MEDS: Vancomycin 1 gm/NS 200 ml 1 GM/200 ML BAG IVPB SCH (02:08)
[2017-12-11] MEDS: Piperacillin/Tazobact 3.375 GM in Sodium Chloride 100 ML IVPB SCH ×2 (03:45→10:08)
[2017-12-11] MEDS: (Novolog) Insulin Aspart, Recombinant 100 u/ml 10 ml vial SC SCH ×4 (08:03→12:52)
[2017-12-11 08:18] LABS: BASO % 0.5 % (0.0-2.0); EOS # 0.2 K/uL (0.0-0.7); EOS % 5.7 % (0.0-4.0); HEMOGLOBIN 14.2 g/dL (12.0-18.0); LYMPH # 1.2 K/uL (1.0-4.3); LYMPH % 30.1 % (20.0-40.0); MEAN CELL VOLUME 83.8 fL (80.0-94.0); MEAN CORPUSCULAR HEMOGLOBIN 28.3 pg (27.0-31.0); MEAN CORPUSCULAR HGB CONC 33.8 g/dL (33.0-37.0); MEAN PLATELET VOLUME 8.9 fL (7.2-11.7); MONO # 0.4 K/uL (0.0-0.8); MONO % 9.4 % (0.0-10.0); NEUT # 2.2 K/uL (1.8-7.0); NEUT % 54.3 % (50.0-75.0); NRBC % 0.1 % (0.0-2.0); RBC 5.03 Mil/uL (4.40-5.90); RED CELL DISTRIBUTION WIDTH 13.7 % (11.5-14.5); WHITE BLOOD COUNT 4.1 K/uL (4.8-10.8)
[2017-12-11 08:27] LABS: ALB/GLOB RATIO 1.2 (1.0-2.1); ALBUMIN 3.8 g/dL (3.5-5.0); ALT/SGPT 18 U/L (21-72); AST/SGOT 24 U/L (17-59); BLOOD UREA NITROGEN 16 mg/dL (9-20); CALCIUM 8.1 mg/dl (8.6-10.4); GFR AFRICAN-AMERICAN > 60; GFR NON-AFRICAN AMERICAN > 60
[2017-12-11 09:17] VITALS: BP 115/69; PULSE 93; TEMP 97.6; O2SAT 97
[2017-12-11] MEDS: Enoxaparin 40 mg Syringe SC SCH (09:26)
[2017-12-11] MEDS: Calcium Carbonate 500 mg Chewable Antacid Tab PO SCH (09:30)
[2017-12-11] MEDS: Sodium Chloride 0.9% 1,000 ML IV SCH (09:33)
--- NOTE | 2017-12-11 10:08 | CP.PCM.PN ---
<AdelitaSara - Last Filed: 12/11/17 10:09> Subjective - Date & Time of Evaluation Date of Evaluation: 12/11/17 Time of Evaluation: 10:04 - Subjective Subjective: Progress Note Patient seen and examined at bedside. Patient has no complaints at this time. Patient is aware he is going to have surgery Wednesday, 12/15 Objective - Vital Signs/Intake and Output Vital Signs (last 24 hours): Temp Pulse Resp BP Pulse Ox 97.6 F 93 H 20 115/69 97 12/11/17 09:16 12/11/17 09:16 12/11/17 09:16 12/11/17 09:16 12/11/17 09:16 - Medications Medications: Current Medications Acetaminophen (Tylenol 325mg Tab) 650 mg PO Q6 PRN PRN Reason: Pain, moderate (4-7) Last Admin: 12/08/17 10:27 Dose: 650 mg Aspirin (Aspirin Chewable) 81 mg PO DAILY [facility] Last Admin: 12/11/17 09:26 Dose: 81 mg Calcium Carbonate (Tums) 500 mg PO BID [facility] Last Admin: 12/11/17 09:30 Dose: 500 mg Clotrimazole (Lotrimin 1%) 0 gm TOP BID [facility] Last Admin: 12/10/17 17:18 Dose: 1 applic Dextrose (Dextrose 50% Inj) 0 ml IV STAT PRN; Protocol PRN Reason: Hypoglycemia Protocol Dextrose (Glutose 15) 0 gm PO ONCE PRN; Protocol PRN Reason: Hypoglycemia Protocol Enoxaparin Sodium (Lovenox) 40 mg SC DAILY [facility] Last Admin: 12/11/17 09:26 Dose: 40 mg Glucagon (Glucagen Diagnostic Kit) 0 mg IM STAT PRN; Protocol PRN Reason: Hypoglycemia Protocol Piperacillin Sod/Tazobactam (Sod 3.375 gm/ Sodium Chloride) 100 mls @ 200 mls/ hr IVPB Q8H [facility] PRN Reason: Protocol Last Admin: 12/11/17 03:45 Dose: 200 mls/hr Vancomycin/Sodium Chloride (Vancomycin 1 Gm/Ns 200 Ml) 1 gm in 200 mls @ 133.333 mls/hr IVPB Q24H [facility] PRN Reason: Protocol Stop: 12/15/17 02:01 Last Admin: 12/11/17 02:08 Dose: 133.333 mls/hr Sodium Chloride (Sodium Chloride 0.9%) 1,000 mls @ 125 mls/hr IV .Q8H [facility] Last Admin: 12/11/17 09:33 Dose: Not Given Insulin Aspart (Novolog) 14 unit SC AC [facility] Last Admin: 12/11/17 09:08 Dose: 14 unit Insulin Aspart (Novolog) 0 unit SC ACHS [facility] Last Admin: 12/11/17 08:03 Dose: Not Given Insulin Glargine (Lantus) 30 unit SC HS [facility] Last Admin: 12/10/17 22:03 Dose: 30 unit Losartan Potassium (Cozaar) 50 mg PO BID [facility] Last Admin: 12/11/17 09:26 Dose: 50 mg Ondansetron HCl (Zofran Inj) 4 mg IVP DAILY@ONCE PRN PRN Reason: vomitting Last Admin: 12/10/17 06:11 Dose: 4 mg Pantoprazole Sodium (Protonix Inj) 40 mg IVP DAILY [facility] Last Admin: 12/11/17 09:27 Dose: 40 mg Rosuvastatin Calcium (Crestor) 2.5 mg PO [facility] Last Admin: 12/10/17 22:03 Dose: 2.5 mg - Labs Labs: 12/11/17 08:05 12/11/17 08:05 PT 10.1 SECONDS (9.7-12.2) 12/07/17 20:47 INR 0.9 12/07/17 20:47 APTT 33 SECONDS (21-34) 12/07/17 20:47 - Additional Findings Additional findings: - Head Exam Head Exam: ATRAUMATIC, NORMAL INSPECTION, NORMOCEPHALIC - Eye Exam Eye Exam: EOMI, Normal appearance Pupil Exam: NORMAL ACCOMODATION, PERRL - ENT Exam ENT Exam: Mucous Membranes Moist, Normal Exam - Neck Exam Neck Exam: Full ROM, Normal Inspection - Respiratory Exam Respiratory Exam: Clear to Ausculation Bilateral, NORMAL BREATHING PATTERN. absent: Accessory Muscle Use - Cardiovascular Exam Cardiovascular Exam: REGULAR RHYTHM, +S1, +S2. absent: Bradycardia, Tachycardia - GI/Abdominal Exam GI & Abdominal Exam: Soft, Normal Bowel Sounds. absent: Tenderness - Rectal Exam Rectal Exam: NORMAL INSPECTION - Extremities Exam Extremities Exam: Full ROM. absent: Pedal Edema Additional comments: third toe gangrene. - Back Exam Back Exam: Full ROM, NORMAL INSPECTION. absent: CVA tenderness (L), CVA tenderness (R) - Neurological Exam Neurological Exam: Alert, Awake, CN II-XII Intact, Oriented x3 Assessment and Plan - Assessment and Plan (Free Text) Assessment: 57M presents with Chest pain, intermittent right arm numbness, bloating, eructation. Chest pain ACS r/o [place] negative x 3 Cardiology: Dr. Berkley Murphy stress test and echo in August, no cardiac interventions or workup at this time. Patient is medically optimized. Dyspepsia/GERD Patient complains of eructation, vomiting, smoking history GI Consult: Dr. Nelson Per GI: Patient to sit up 1 hour postprandial, outpatient GI follow up to re- assess symptoms and concern for weight loss, further workup for gastroparesis or other underlying pathology in outpatient setting if symptoms persist despite lifestyle modifications Tums BID Pain Tylenol 650 mg PO Q6H PRN ASA 81 mg PO QD HTN Cozaar 50mg PO BID DM, hyperglycemia Insulin SS, switched to high insulin ss at 11:23 am, discontinued Patient restarted on Humalin 70/30 30 u BID Hypoglycemic Protocol Right gangrenous toe MRI positive for acute osteomyelitis of 3rd right mtp and changes found in first phalanx Friday 12/15 patient is scheduled for Right 3rd digit partial amputation. blood cultures negative 12/07 wound cultures negative 12/07 12/07 foot culture positive for serratia Marcescens and beta hemolytic strep group B Per Dr. Lawrence, Patient may be on PO antibiotics (Levoquin) Podiatry Consult: Dr. Rodgers Vancomycin 1 gm IVPB Q24H Zosyn 3.375gm IVPB Q8H Balanitis, resolving 1% clotrimazole (lotrimin) ointment Prophylaxis Lovenox 40mg SC QD Protonix 40mg IVP QD Diet: carbohydrate consistent diet Dispo: Friday 12/15 patient is scheduled for right 3rd digit partial amputation. Patient is medically optimized for surgery. discussed with Dr. Shaneka Ureña DO PGY1 <Cecille Munroe V - Last Filed: 12/12/17 22:27> Objective - Vital Signs/Intake and Output Vital Signs (last 24 hours): Temp Pulse Resp BP Pulse Ox 97.6 F 93 H 20 115/69 97 12/11/17 09:16 12/11/17 09:16 12/11/17 09:16 12/11/17 09:16 12/11/17 09:16 - Labs Labs: 12/11/17 08:05 12/11/17 08:05 PT 10.1 SECONDS (9.7-12.2) 12/07/17 20:47 INR 0.9 12/07/17 20:47 APTT 33 SECONDS (21-34) 12/07/17 20:47 Attending/Attestation - Attestation I have personally seen and examined this patient.: Yes I have fully participated in the care of the patient.: Yes I have reviewed all pertinent clinical information, including history, physical exam and plan: Yes Notes (Text): Please refer to my full note noted in patient's discharge summary dated for 12/11.
[2017-12-11] MEDS: Clotrimazole 1% Cream(30 gm) TOP SCH (12:52)
--- NOTE | 2017-12-11 13:03 | CP.PCM.PN ---
Subjective - Date & Time of Evaluation Date of Evaluation: 12/11/17 Time of Evaluation: 11:00 - Subjective Subjective: Podiatry Progress Note- Dr. Rodgers 57 y.o male seen and evaluated at bedside for right 3rd digit ulceration with OM. Patient is seen resting comfortably in bed, in NAD, and AA0x3. Patient expresses wish to go home today and follow up for right 3rd digit ampuation on Wednesday. Patient denies pain to the LE. Denies acute overnight events. Denies nausea, fever, shortness of breath, chest pains or chills. No new pedal complaints Objective - Vital Signs/Intake and Output Vital Signs (last 24 hours): Temp Pulse Resp BP Pulse Ox 97.6 F 93 H 20 115/69 97 12/11/17 09:16 12/11/17 09:16 12/11/17 09:16 12/11/17 09:16 12/11/17 09:16 - Medications Medications: Current Medications Acetaminophen (Tylenol 325mg Tab) 650 mg PO Q6 PRN PRN Reason: Pain, moderate (4-7) Last Admin: 12/08/17 10:27 Dose: 650 mg Aspirin (Aspirin Chewable) 81 mg PO DAILY [facility] Last Admin: 12/11/17 09:26 Dose: 81 mg Calcium Carbonate (Tums) 500 mg PO BID [facility] Last Admin: 12/11/17 09:30 Dose: 500 mg Clotrimazole (Lotrimin 1%) 0 gm TOP BID [facility] Last Admin: 12/11/17 12:52 Dose: 1 applic Dextrose (Dextrose 50% Inj) 0 ml IV STAT PRN; Protocol PRN Reason: Hypoglycemia Protocol Dextrose (Glutose 15) 0 gm PO ONCE PRN; Protocol PRN Reason: Hypoglycemia Protocol Enoxaparin Sodium (Lovenox) 40 mg SC DAILY [facility] Last Admin: 12/11/17 09:26 Dose: 40 mg Glucagon (Glucagen Diagnostic Kit) 0 mg IM STAT PRN; Protocol PRN Reason: Hypoglycemia Protocol Piperacillin Sod/Tazobactam (Sod 3.375 gm/ Sodium Chloride) 100 mls @ 200 mls/ hr IVPB Q8H [facility] PRN Reason: Protocol Last Admin: 12/11/17 10:08 Dose: Not Given Vancomycin/Sodium Chloride (Vancomycin 1 Gm/Ns 200 Ml) 1 gm in 200 mls @ 133.333 mls/hr IVPB Q24H [facility] PRN Reason: Protocol Stop: 12/15/17 02:01 Last Admin: 12/11/17 02:08 Dose: 133.333 mls/hr Sodium Chloride (Sodium Chloride 0.9%) 1,000 mls @ 125 mls/hr IV .Q8H [facility] Last Admin: 12/11/17 09:33 Dose: Not Given Insulin Aspart (Novolog) 14 unit SC AC [facility] Last Admin: 12/11/17 12:52 Dose: 14 unit Insulin Aspart (Novolog) 0 unit SC ACHS [facility] Last Admin: 12/11/17 12:24 Dose: Not Given Insulin Glargine (Lantus) 30 unit SC HS [facility] Last Admin: 12/10/17 22:03 Dose: 30 unit Losartan Potassium (Cozaar) 50 mg PO BID [facility] Last Admin: 12/11/17 09:26 Dose: 50 mg Ondansetron HCl (Zofran Inj) 4 mg IVP DAILY@ONCE PRN PRN Reason: vomitting Last Admin: 12/10/17 06:11 Dose: 4 mg Pantoprazole Sodium (Protonix Inj) 40 mg IVP DAILY [facility] Last Admin: 12/11/17 09:27 Dose: 40 mg Rosuvastatin Calcium (Crestor) 2.5 mg PO HS [facility] Last Admin: 12/10/17 22:03 Dose: 2.5 mg - Labs Labs: 12/11/17 08:05 12/11/17 08:05 PT 10.1 SECONDS (9.7-12.2) 12/07/17 20:47 INR 0.9 12/07/17 20:47 APTT 33 SECONDS (21-34) 12/07/17 20:47 - Constitutional Appears: Well, Non-toxic, No Acute Distress - Extremities Exam Extremities Exam: absent: Calf Tenderness Additional comments: Lower extremity focused examination: DERM- Ulceration noted to the distal right 3rd digit plantarly measuring approximately 2 cm x 2 x .3 cm with necrotic skin to the distal aspect of the toe. Wound base is mainly granular, mal odor noted, no purulence drainage, mild serous drainage noted, no erythema, no streaking, no fluctanance or abscess appreciated. Dried lanced bullous lesions noted to lateral aspect 5th digit measuring approximately 1 cm x 1 cm VASC- pedal pulses fully palpable 2/4 bilaterally, skin temperature warm to cool from proximal knees to distal digits , cap refill < 3 sec to all digits, moderate edema noted to distal aspect right 3rd digit NEURO- gross sensation diminished and protective pedal sensation absent ORTHO- amputations of R hallux and R 2nd digit, no pain with palpation to ulceration site - Neurological Exam Neurological Exam: Alert, Awake - Psychiatric Exam Psychiatric exam: Normal Affect, Normal Mood Assessment and Plan - Assessment and Plan (Free Text) Assessment: 57 yo male patient with right 3rd digit distal ulceration with dry gangrene, +OM Plan: Patient seen and examined Discussed plan in details with attending Dr. 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 Rodgers for Right 3rd digit amputation Informed patient date and time, explained to patient about procedure, risks, benefits, alternatives and complications. Patient understands and agrees Patient expresses wish to leave and return. Upon discharge, patient to change dressing daily with betadine, dsd, and kerlix. Do not get wet. Keep c/d/i To WBAT in surgical shoe at all times. Educated patient: if worsening signs or symptoms, seek help immediately and return to ED
--- NOTE | 2017-12-11 15:29 | CP.PCM.DIS ---
<Sara Ureña - Last Filed: 12/11/17 15:31> Provider - Provider Date of Admission: 12/08/17 00:02 Attending physician: Kaushik Diego MD Consults: Dr. Berkley Padilla Time Spent in preparation of Discharge (in minutes): 35 Diagnosis - Discharge Diagnosis (1) Gangrene of toe of right foot Status: Chronic (2) Balanitis Status: Resolved Hospital Course - Lab Results Lab Results: Micro Results 12/07/17 23:10 Blood Blood Culture - Preliminary NO GROWTH AFTER 3 DAYS 12/07/17 23:10 Blood Blood Culture - Preliminary NO GROWTH AFTER 3 DAYS 12/07/17 23:43 Foot - Right Gram Stain - Final 12/07/17 23:43 Foot - Right Wound Culture - Final Serratia Marcescens Beta Hemolytic Strep Group B Most Recent Lab Values WBC 4.1 K/uL (4.8-10.8) L 12/11/17 08:05 RBC 5.03 Mil/uL (4.40-5.90) 12/11/17 08:05 Hgb 14.2 g/dL (12.0-18.0) 12/11/17 08:05 Hct 42.2 % (35.0-51.0) 12/11/17 08:05 MCV 83.8 fL (80.0-94.0) 12/11/17 08:05 MCH 28.3 pg (27.0-31.0) 12/11/17 08:05 MCHC 33.8 g/dL (33.0-37.0) 12/11/17 08:05 RDW 13.7 % (11.5-14.5) 12/11/17 08:05 Plt Count 212 K/uL (130-400) 12/11/17 08:05 MPV 8.9 fL (7.2-11.7) 12/11/17 08:05 Neut % (Auto) 54.3 % (50.0-75.0) 12/11/17 08:05 Lymph % (Auto) 30.1 % (20.0-40.0) 12/11/17 08:05 [place] % (Auto) 9.4 % (0.0-10.0) 12/11/17 08:05 Eos % (Auto) 5.7 % (0.0-4.0) H 12/11/17 08:05 Baso % (Auto) 0.5 % (0.0-2.0) 12/11/17 08:05 Neut # (Auto) 2.2 K/uL (1.8-7.0) 12/11/17 08:05 Lymph # (Auto) 1.2 K/uL (1.0-4.3) 12/11/17 08:05 [place] # (Auto) 0.4 K/uL (0.0-0.8) 12/11/17 08:05 Eos # (Auto) 0.2 K/uL (0.0-0.7) 12/11/17 08:05 Baso # (Auto) 0.0 K/uL (0.0-0.2) 12/11/17 08:05 ESR 7 mm/hr (0-15) 12/07/17 23:44 PT 10.1 SECONDS (9.7-12.2) 12/07/17 20:47 INR 0.9 12/07/17 20:47 APTT 33 SECONDS (21-34) 12/07/17 20:47 pO2 22 mm/Hg (30-55) L 12/07/17 20:50 VBG pH 7.33 (7.32-7.43) 12/07/17 20:50 VBG pCO2 50 mmHg (40-60) 12/07/17 20:50 VBG HCO3 23.0 mmol/L 12/07/17 20:50 VBG Total CO2 27.9 mmol/L (22-28) 12/07/17 20:50 VBG O2 Sat (Calc) 40.2 % (40-65) 12/07/17 20:50 VBG Base Excess -0.2 mmol/L (0.0-2.0) L 12/07/17 20:50 VBG Potassium 4.2 mmol/L (3.6-5.2) 12/07/17 20:50 Sodium 136.0 mmol/l (132-148) 12/07/17 20:50 Chloride 102.0 mmol/L (98-107) 12/07/17 20:50 Glucose 510 mg/dl (75-110) H* D 12/07/17 20:50 Lactate 1.6 mmol/L (0.7-2.1) 12/07/17 20:50 FiO2 21.0 % 12/07/17 20:50 Crit Value Called To Dr lopez 12/07/17 20:50 Crit Value Called By Elliot curry 12/07/17 20:50 Crit Value Read Back Y 12/07/17 20:50 Blood Gas Notified Time 205412/07/17 20:50 Sodium 136 mmol/L (132-148) 12/11/17 08:05 Potassium 4.0 mmol/L (3.6-5.2) 12/11/17 08:05 Chloride 101 mmol/L (98-107) 12/11/17 08:05 Carbon Dioxide 27 mmol/L (22-30) 12/11/17 08:05 Anion Gap 12 (10-20) 12/11/17 08:05 BUN 16 mg/dL (9-20) 12/11/17 08:05 Creatinine 1.2 mg/dL (0.8-1.5) 12/11/17 08:05 Est GFR ( Amer) > 60 12/11/17 08:05 Est GFR (Non-Af Amer) > 60 12/11/17 08:05 POC Glucose (mg/dL) 294 mg/dL (65-110) H 12/11/17 11:22 Random Glucose 192 mg/dL (75-110) H 12/11/17 08:05 Hemoglobin A1c 9.3 % (4.2-6.5) H 12/08/17 03:23 Calcium 8.1 mg/dl (8.6-10.4) L 12/11/17 08:05 Phosphorus 3.5 mg/dL (2.5-4.5) 12/11/17 08:05 Magnesium 2.0 mg/dL (1.6-2.3) 12/11/17 08:05 Total Bilirubin 1.0 mg/dL (0.2-1.3) 12/11/17 08:05 AST 24 U/L (17-59) 12/11/17 08:05 ALT 18 U/L (21-72) L D 12/11/17 08:05 Alkaline Phosphatase 81 U/L (38-126) 12/11/17 08:05 Total Creatine Kinase 165 U/L (55-170) 12/08/17 11:53 CK-MB (Mass) 2.37 ng/mL (0.0-3.38) 12/08/17 11:53 Troponin I < 0.0120 ng/mL (0.00-0.120) 12/08/17 11:53 C-Reactive Protein 5.80 mg/L (0.0-9.9) 12/07/17 23:44 Total Protein 6.8 g/dL (6.3-8.3) 12/11/17 08:05 Albumin 3.8 g/dL (3.5-5.0) 12/11/17 08:05 Globulin 3.1 gm/dL (2.2-3.9) 12/11/17 08:05 Albumin/Globulin Ratio 1.2 (1.0-2.1) 12/11/17 08:05 Triglycerides 191 mg/dL (0-149) H D 12/08/17 02:48 Cholesterol 174 mg/dL (0-199) 12/08/17 02:48 LDL Cholesterol Direct 77 mg/dL (0-129) 12/08/17 02:48 HDL Cholesterol 56 mg/dL (30-70) 12/08/17 02:48 Lipase < 10 U/L (23-300) L 12/07/17 20:47 Free T4 1.12 ng/dL (0.78-2.19) 12/11/17 13:03 Free T3 pg/mL 2.99 pg/mL (2.77-5.27) 12/11/17 13:03 TSH 3rd Generation 9.41 mIU/L (0.46-4.68) H 12/11/17 08:05 Venous Blood Potassium 4.2 mmol/L (3.6-5.2) 12/07/17 20:50 Urine Color Yellow (YELLOW) 12/07/17 21: Urine Clarity Clear (Clear) 12/07/17: Urine pH 5.0 (5.0-8.0) 12/07/17 21: Ur Specific Tatums 1.027 (1.003-1.030) 12/07/17 21: Urine Protein Negative mg/dL (NEGATIVE) 12/07/17 21: Urine Glucose (UA) 3+ mg/dL (Normal) H 12/07/17 21:27 Urine Ketones Negative mg/dL (NEGATIVE) 12/07/17 21:27 Urine Blood Negative (NEGATIVE) 12/07/17 21:27 Urine Nitrate Negative (NEGATIVE) 12/07/17 21:27 Urine Bilirubin Negative (NEGATIVE) 12/07/17 21:27 Urine Urobilinogen Normal mg/dL (0.2-1.0) 12/07/17 21:27 Ur Leukocyte Esterase Neg Lauren/uL (Negative) 12/07/17 21:27 Urine WBC (Auto) 1 /hpf (0-5) 12/07/17 21:27 Vancomycin Trough 13.8 ug/mL (5.0-10.0) H 12/11/17 08:05 Urine Opiates Screen Negative (NEGATIVE) 12/08/17 03:27 Urine Methadone Screen Negative (NEGATIVE) 12/08/17 03:27 Ur Barbiturates Screen Negative (NEGATIVE) 12/08/17 03:27 Ur Phencyclidine Scrn Negative (NEGATIVE) 12/08/17 03:27 Ur Amphetamines Screen Negative (NEGATIVE) 12/08/17 03:27 U Benzodiazepines Scrn Negative (NEGATIVE) 12/08/17 03:27 U Oth Cocaine Metabols Negative (NEGATIVE) 12/08/17 03:27 U Cannabinoids Screen Negative (NEGATIVE) 12/08/17 03:27 Alcohol, Quantitative < 10 mg/dl (0-10) 12/08/17 03:27 - Hospital Course Hospital Course: HPI This is a 57 yo male with past medical hx of DM, diagnosed 25 years ago, insulin dependent, multiple amputations, HTN, gastritis, presenting to [facility] ER with chief complaint of chest pain. Pt says he drove into ER himself. He says the chest pain started 2 days ago. It is substernal with radiation to his right shoulder. He was lying in bed 2 days ago when the pain started and it came on gradually. He says it has never happened before. He says it is a pressure sensation. It is 4/10 currently but it was getting worse so he came in. It is not reproducible to palpation. He says he thinks he had a stress test a few years back which he thinks was normal. He denies cardiac cath. He reports some associated numbness and stiffness in his right arm. He says lying on his right side makes it worse. He denies any relation to food. He denies any current shortness of breath but says he is out of breath by the time he climbs 3 flights of stairs. He denies dizziness, syncope, diaphoresis, fevers, chills, cough. He does admit to bloating and belching. He says he is due to see a GI for this problem in January. He also says he was concerned about his right toe that was becoming gangrenous. He had an operation on his right foot recently and was wearing open toed shoes with stitches for a while. He came to [facility] at [facility] to have stitches removed and began wearing regular shoes. He says the regular shoes were bothering him a lot and he thinks that was when the gangrene started to develop. Records indicate he has been admitted recently for the same complaint. He denies pain and says he really does not have much feeling in the area. He does take insulin at home but says he sometimes forgets to take his doses. He says he also does not check his sugar regularly. He has recently been experiencing insurance and money issues. Hospital course During stay, patient tolerated pain well. Patient had MRI done of lower extremity showing changes in third MTP signs of acute osteomyelitis and changes in first phalanges. Patient planned for surgery Friday 12/15 and patient is discharged on 10 days of Levaquin. Patient states he has dyspepsia during his stay, which he states has been going on for awhile. Patient denies vomiting. Patient had GI consult who saw patient and suggested sitting up 1 hour postprandial for dyspepsia. Patient was found to be on balantitis during antibiotics used. Patient usually have this during his stay. Patient became more hyperglycemic during stay, placed on home insulin regimen instead of sliding scale. Glucose improving, stricter control enforced. Dr. Solorio was consulted for further suggestions. Patient to follow up with Dr. Rodgers on Friday 12/15 for outpatient partial third toe amputation Patient to follow up with GI for further workup if dyspepsia continues Patient to continue on PO protonix upon discharge Patient discharged with testing strips: Levaquin 750 mg POQD Cozaar 50mg PO BID Protonix 20 mg POQD Embrace test strips Insulin NPH Hum/reg 70/30 30 u SC BID Simvastatin 10 mg PO QD - Date & Time of H&P Date of H&P: 12/11/17 Time of H&P: 15:28 Discharge Exam - Head Exam Head Exam: ATRAUMATIC, NORMAL INSPECTION, NORMOCEPHALIC - Eye Exam Eye Exam: EOMI, Normal appearance Pupil Exam: NORMAL ACCOMODATION, PERRL - ENT Exam ENT Exam: Mucous Membranes Moist - Neck Exam Neck exam: Full Rom - Respiratory Exam Respiratory Exam: Clear to PA & Lateral, NORMAL BREATHING PATTERN, UNREMARKABLE. absent: Accessory Muscle Use - Cardiovascular Exam Cardiovascular Exam: REGULAR RHYTHM, +S1, +S2 - Extremities Exam Extremities exam: full ROM Additional comments: no pedal edema right foot with 2nd digit missing. gangrenous 3rd MTP of right food. Other capillary refill <2 seconds dressings with betaiodine, otherwise c/d/i no spreading erythema. - Neurological Exam Neurological exam: CN II-XII Intact - Skin Skin Exam: Warm Discharge Plan - Discharge Medications Prescriptions: Blood Sugar Diagnostic [Embrace] 1 each MC ACHS 30 Days strip RX: Clotrimazole 1% Cream [Lotrimin 1%] 1 gm TOP BID 30 Days tube RX: Insulin NPH Hum/Reg Insulin Hm [Humulin 70/30 Kwikpen] 30 unit SQ Q12 #1 insuln.pen RX: levoFLOXacin [Levaquin] 750 mg PO DAILY #10 tab RX: Losartan [Cozaar] 50 mg PO BID #60 tab Pantoprazole Sodium [Protonix] 20 mg PO DAILY #30 ect RX: Simvastatin 10 mg PO DAILY #30 tablet - Follow Up Plan Condition: FAIR Disposition: HOME/ ROUTINE Instructions: Diabetes Type 2 (DC), Necrotizing Fasciitis (DC), Necrotizing Fasciitis (GEN) Additional Instructions: Patient to follow up with Dr. Rodgers on Friday 12/15 for outpatient partial third toe amputation Patient to follow up with GI for further workup if dyspepsia continues Patient to continue on PO protonix upon discharge Patient to take PO Levaquin for 10 days per Referrals: Rohan Padilla MD [Staff Provider] - Val Rodgers DPM [Staff Provider] - [facility] at [facility] [Outside] <Cecille Munroe V - Last Filed: 12/11/17 15:45> Provider - Provider Date of Admission: 12/08/17 00:02 Attending physician: Kaushik Diego MD Hospital Course - Lab Results Lab Results: Micro Results 12/07/17 23:10 Blood Blood Culture - Preliminary NO GROWTH AFTER 3 DAYS 12/07/17 23:10 Blood Blood Culture - Preliminary NO GROWTH AFTER 3 DAYS 12/07/17 23:43 Foot - Right Gram Stain - Final 12/07/17 23:43 Foot - Right Wound Culture - Final Serratia Marcescens Beta Hemolytic Strep Group B Most Recent Lab Values WBC 4.1 K/uL (4.8-10.8) L 12/11/17 08:05 RBC 5.03 Mil/uL (4.40-5.90) 12/11/17 08:05 Hgb 14.2 g/dL (12.0-18.0) 12/11/17 08:05 Hct 42.2 % (35.0-51.0) 12/11/17 08:05 MCV 83.8 fL (80.0-94.0) 12/11/17 08:05 MCH 28.3 pg (27.0-31.0) 12/11/17 08:05 MCHC 33.8 g/dL (33.0-37.0) 12/11/17 08:05 RDW 13.7 % (11.5-14.5) 12/11/17 08:05 Plt Count 212 K/uL (130-400) 12/11/17 08:05 MPV 8.9 fL (7.2-11.7) 12/11/17 08:05 Neut % (Auto) 54.3 % (50.0-75.0) 12/11/17 08:05 Lymph % (Auto) 30.1 % (20.0-40.0) 12/11/17 08:05 Len[place] % (Auto) 9.4 % (0.0-10.0) 12/11/17 08:05 Eos % (Auto) 5.7 % (0.0-4.0) H 12/11/17 08:05 Baso % (Auto) 0.5 % (0.0-2.0) 12/11/17 08:05 Neut # (Auto) 2.2 K/uL (1.8-7.0) 12/11/17 08:05 Lymph # (Auto) 1.2 K/uL (1.0-4.3) 12/11/17 08:05 Len[place] # (Auto) 0.4 K/uL (0.0-0.8) 12/11/17 08:05 Eos # (Auto) 0.2 K/uL (0.0-0.7) 12/11/17 08:05 Baso # (Auto) 0.0 K/uL (0.0-0.2) 12/11/17 08:05 ESR 7 mm/hr (0-15) 12/07/17 23:44 PT 10.1 SECONDS (9.7-12.2) 12/07/17 20:47 INR 0.9 12/07/17 20:47 APTT 33 SECONDS (21-34) 12/07/17 20:47 pO2 22 mm/Hg (30-55) L 12/07/17 20:50 VBG pH 7.33 (7.32-7.43) 12/07/17 20:50 VBG pCO2 50 mmHg (40-60) 12/07/17 20:50 VBG HCO3 23.0 mmol/L 12/07/17 20:50 VBG Total CO2 27.9 mmol/L (22-28) 12/07/17 20:50 VBG O2 Sat (Calc) 40.2 % (40-65) 12/07/17 20:50 VBG Base Excess -0.2 mmol/L (0.0-2.0) L 12/07/17 20:50 VBG Potassium 4.2 mmol/L (3.6-5.2) 12/07/17 20:50 Sodium 136.0 mmol/l (132-148) 12/07/17 20:50 Chloride 102.0 mmol/L (98-107) 12/07/17 20:50 Glucose 510 mg/dl (75-110) H* D 12/07/17 20:50 Lactate 1.6 mmol/L (0.7-2.1) 12/07/17 20:50 FiO2 21.0 % 12/07/17 20:50 Crit Value Called To Dr lopez 12/07/17 20:50 Crit Value Called By Elliot curry 12/07/17 20:50 Crit Value Read Back Y 12/07/17 20:50 Blood Gas Notified Time 205412/07/17 20:50 Sodium 136 mmol/L (132-148) 12/11/17 08:05 Potassium 4.0 mmol/L (3.6-5.2) 12/11/17 08:05 Chloride 101 mmol/L (98-107) 12/11/17 08:05 Carbon Dioxide 27 mmol/L (22-30) 12/11/17 08:05 Anion Gap 12 (10-20) 12/11/17 08:05 BUN 16 mg/dL (9-20) 12/11/17 08:05 Creatinine 1.2 mg/dL (0.8-1.5) 12/11/17 08:05 Est GFR ( Amer) > 60 12/11/17 08:05 Est GFR (Non-Af Amer) > 60 12/11/17 08:05 POC Glucose (mg/dL) 294 mg/dL (65-110) H 12/11/17 11:22 Random Glucose 192 mg/dL (75-110) H 12/11/17 08:05 Hemoglobin A1c 9.3 % (4.2-6.5) H 12/08/17 03:23 Calcium 8.1 mg/dl (8.6-10.4) L 12/11/17 08:05 Phosphorus 3.5 mg/dL (2.5-4.5) 12/11/17 08:05 Magnesium 2.0 mg/dL (1.6-2.3) 12/11/17 08:05 Total Bilirubin 1.0 mg/dL (0.2-1.3) 12/11/17 08:05 AST 24 U/L (17-59) 12/11/17 08:05 ALT 18 U/L (21-72) L D 12/11/17 08:05 Alkaline Phosphatase 81 U/L (38-126) 12/11/17 08:05 Total Creatine Kinase 165 U/L (55-170) 12/08/17 11:53 CK-MB (Mass) 2.37 ng/mL (0.0-3.38) 12/08/17 11:53 Troponin I < 0.0120 ng/mL (0.00-0.120) 12/08/17 11:53 C-Reactive Protein 5.80 mg/L (0.0-9.9) 12/07/17 23:44 Total Protein 6.8 g/dL (6.3-8.3) 12/11/17 08:05 Albumin 3.8 g/dL (3.5-5.0) 12/11/17 08:05 Globulin 3.1 gm/dL (2.2-3.9) 12/11/17 08:05 Albumin/Globulin Ratio 1.2 (1.0-2.1) 12/11/17 08:05 Triglycerides 191 mg/dL (0-149) H D 12/08/17 02:48 Cholesterol 174 mg/dL (0-199) 12/08/17 02:48 LDL Cholesterol Direct 77 mg/dL (0-129) 12/08/17 02:48 HDL Cholesterol 56 mg/dL (30-70) 12/08/17 02:48 Lipase < 10 U/L (23-300) L 12/07/17 20:47 Free T4 1.12 ng/dL (0.78-2.19) 12/11/17 13:03 Free T3 pg/mL 2.99 pg/mL (2.77-5.27) 12/11/17 13:03 TSH 3rd Generation 9.41 mIU/L (0.46-4.68) H 12/11/17 08:05 Venous Blood Potassium 4.2 mmol/L (3.6-5.2) 12/07/17 20:50 Urine Color Yellow (YELLOW) 12/07/17 21: Urine Clarity Clear (Clear) 12/07/17 21: Urine pH 5.0 (5.0-8.0) 12/07/17 21: Ur Specific Tatums 1.027 (1.003-1.030) 12/07/17 21: Urine Protein Negative mg/dL (NEGATIVE) 12/07/17 21: Urine Glucose (UA) 3+ mg/dL (Normal) H 12/07/17 21: Urine Ketones Negative mg/dL (NEGATIVE) 12/07/17 21: Urine Blood Negative (NEGATIVE) 12/07/17 21: Urine Nitrate Negative (NEGATIVE) 12/07/17 21: Urine Bilirubin Negative (NEGATIVE) 12/07/17 21: Urine Urobilinogen Normal mg/dL (0.2-1.0) 12/07/17 21:27 Ur Leukocyte Esterase Neg Lauren/uL (Negative) 12/07/17 21:27 Urine WBC (Auto) 1 /hpf (0-5) 12/07/17 21:27 Vancomycin Trough 13.8 ug/mL (5.0-10.0) H 12/11/17 08:05 Urine Opiates Screen Negative (NEGATIVE) 12/08/17 03:27 Urine Methadone Screen Negative (NEGATIVE) 12/08/17 03:27 Ur Barbiturates Screen Negative (NEGATIVE) 12/08/17 03:27 Ur Phencyclidine Scrn Negative (NEGATIVE) 12/08/17 03:27 Ur Amphetamines Screen Negative (NEGATIVE) 12/08/17 03:27 U Benzodiazepines Scrn Negative (NEGATIVE) 12/08/17 03:27 U Oth Cocaine Metabols Negative (NEGATIVE) 12/08/17 03:27 U Cannabinoids Screen Negative (NEGATIVE) 12/08/17 03:27 Alcohol, Quantitative < 10 mg/dl (0-10) 12/08/17 03:27 Attending/Attestation - Attestation I have personally seen and examined this patient.: Yes I have fully participated in the care of the patient.: Yes I have reviewed all pertinent clinical information, including history, physical exam and plan: Yes Notes (Text): Patient seen, examined and case discussed with biomedical analytical scientist. Discussed with infectious disease, patient appropriate for home discharge since he is not septic, no associated cellulitis, blood cultures are negative, afebrile, no elevated white count recommends Levaquin 750mg once a day (ten days ), embrace test strips, protonix 40mg PO daily (30 days), and patient was advised to hold his Aspirin today for his surgery on 12/15/17 scheduled for OR at 8:30AM. Patient advised to take half his evening insulin day prior to surgery and spoke with performance architect, Dr Rodgers, may take his morning tabs with sip of water prior to procedure. Patient reports he has sufficient supply of his insulin. Patient will need to f/u with GI as outpatient for further workup. Patient will need to f/u with urology if his balantis is not recovered when antibiotics are completed. This is a summary of patient's hospitalization. Please see EMR for further details. Assessment/Plan 1) Right osteomyelitis of 3rd foot * Podiatry Consult: Dr. Edu Rodgers on board-->help appreciated * Friday 12/15 patient is scheduled for Right 3rd digit partial amputation. * Infectious Disease: Dr Lawrence on board-->help appreciated * Blood cultures negative 12/07 * Wound cultures (12/07/17): Serratia Marcescens, Beta Hemolytic Strep * MRI (12/08/17): signal abnormality noted at the 3rd middle and distal phalanges with patchy decreased T1 signal and pacthy increased STIR signal for acute and or developing acute ostemyelitic changes. Soft tissue ulceration noted at that level. Resection of the 1st digit to the level of the midshaft of the 1st proximal Etc. (further findings per report) * start Vancomycin 1 gm IVPB Q24H * start Zosyn 3.375gm IVPB Q8H 2) Chest pain-->resolved Assessment/Plan * Cardiology: Dr. Gooden on board-->help appreciated * VALENTINA negative x 3 * Myocardial Perfusion (08/25/17): low probability for significant obstructive atherosclerotic coronary artery disease, normal left ventricular ejection fraction * Per consult: The pain is reproducible with tenderness no acute EKG changes and negative enzymes. No IN no need for further cardiac workup at this time, seen by vascular and infectious disease treatment is in order * Aspirin 81mg Po daily (since admission) to hold today for surgery procedure on Wednesday 3) Dyspepsia-->controlled Vomitting Assessment/Plan * likely secondary to diabetic gastroparesis, antibiotic therapy * Patient complains of eructation, vomiting, smoking history * GI Consult: Dr. Nelson transition coach-->help appreciated * Patient would benefit from elective EGD evaluation following resolution of acute symptoms. No further planned GI intervention, will sign off case. Please reconsult as necessary, thank you * Advance diet as tolerated, suggest small frequent meals throughout the day 4) Hypertension-->controlled Assessment/Plan * Cozaar 50mg PO BID * Monitor vital signs 5) Diabetes uncontrolled * Endocrinology (Dr. Solorio) on consult-->help appreciated * Insulin SS * Hypoglycemic Protocol * a1c: 9.3 * Novolin 70/30 30 units subq 12H * Cozaar 50mg PO BID 6) Balanitis--Improving * Patient seen and examined with resident at bedside as witnessed during exam. * 1% clotrimazole (lotrimin) ointment * Patient has frequent yeast infections while on IV abx 7) Prophylaxis * Lovenox 40mg SC Qdaily * Protonix 40mg IVP QDaily
[2017-12-12] MEDS ORDERED: Pantoprazole 40 mg EC Tab PO SCH (10:00)
--- NOTE | 2017-12-14 09:31 | PN ---
DATE: 12/11/2017 ENDO FOLLOWUP NOTE LOCATION: Room 650. SUBJECTIVE: This is a 57-year-old male with recent uncontrolled type I insulin-dependent diabetes, now being followed closely for metabolic management. He presented here with acute precordial chest pain and undergoing cardiac workup at this time. Moreover, he also has concomitant gangrene in the right third toe, undergoing local debridement and intensive IV antibiotic management was given. His glycemic levels are fluctuating, but much improved at this time and overnight glucose levels have ranged from 148 to 241 mg/dL. The latest chemistries shows a BUN of 16, sodium 136, potassium 4, chloride 101, CO2 27, glucose 192, and creatinine 1.2. ASSESSMENT: This is a 66-year-old male with uncontrolled and decompensated type I insulin-dependent diabetes with marked hyperglycemic accelerations related to a subtherapeutic insulin regimen and currently undergoing cardiac workup for substernal chest pain and also concomitant vigorous hydration with intensive intravenous antibiotic management for a nonhealing gangrenous lesion in the right third toe as noted. He has also diabetic microvascular complications of retinopathy, polyneuropathy, and nephropathy, with diabetic microvascular complications of coronary artery disease and peripheral arterial disease and vasculopathy. PLAN OF MANAGEMENT: We will continue the same basal and bolus insulin regimen to allow for dose of as this was somewhat dosing combination in spite of his previous remixed insulin regimen given at home. We will continue the Lantus given at 30 units subcu at bedtime daily as ordered. We will also continue the NovoLog given as 14 units subcu t.i.d. before meals as ordered. We will modify the coverage hypoglycemia and detailed orders have been given. We will follow and advise accordingly. Junie Solorio MD
== END 2017-12-11 17:14 | disposition home or self-care (01) | DRG 300 ==
LOC: C.ER 19:52 → C.6T 12-08 00:02
PROVIDERS: ADMIT Family Medicine; ATTEND Family Medicine
DX: E11.52 Type 2 diabetes mellitus with diabetic peripheral angiopathy with gangrene (principal); I96 Gangrene, not elsewhere classified; M86.10 Other acute osteomyelitis, unspecified site; E11.65 Type 2 diabetes mellitus with hyperglycemia; Z79.4 Long term (current) use of insulin; E78.5 Hyperlipidemia, unspecified; I11.9 Hypertensive heart disease without heart failure; I25.10 Atherosclerotic heart disease of native coronary artery without angina pectoris; K21.9 Gastro-esophageal reflux disease without esophagitis; K31.84 Gastroparesis; L08.9 Local infection of the skin and subcutaneous tissue, unspecified; L97.519 Non-pressure chronic ulcer of other part of right foot with unspecified severity; N48.1 Balanitis; R13.10 Dysphagia, unspecified; Z79.82 Long term (current) use of aspirin; Z87.891 Personal history of nicotine dependence; K31.9 Disease of stomach and duodenum, unspecified; E11.43 Type 2 diabetes mellitus with diabetic autonomic (poly)neuropathy

== ENCOUNTER 2017-12-15 05:34 | Day surgery (SDC) | payer OTHER ==
[2017-12-15] MEDS ORDERED: Lidocaine 2% MPF (5 ml) Inj ONE (06:59)
[2017-12-15] MEDS ORDERED: ceFAZolin 1 gm in NS 1 GM/100 ML BAG IVPB ONE ×2 (07:00→07:14)
[2017-12-15] MEDS ORDERED: Bupivacaine HCl 0.5% PF (30 ml) Inj ONE (07:00)
[2017-12-15] MEDS ORDERED: Midazolam 2 MG/2 ML VIAL ONE (07:53)
[2017-12-15] MEDS ORDERED: Propofol 10 mg/ml Inj (20 ML) ONE (07:53)
[2017-12-15] MEDS ORDERED: Lactated Ringer's 1,000 ML IV ONE (08:10)
[2017-12-15] MEDS ORDERED: Oxycodone/Acetaminophen 5/325 mg Tab PO PRN ×2 (08:46)
--- NOTE | 2017-12-15 08:46 | PCM.SURG1 ---
Surgeon's Initial Post Op Note - Surgeon's Notes Surgeon: Dr. Rodgers Battery Recharger: Dr. Salina Byers PGY-1 Type of Anesthesia: IV Sedation, Local (10cc 1:1 2% Lidocaine plain and 0.5% Marcaine plain) Anesthesia Administered By: Basil Can CRNA/Dr. Rolf SANDERSON Pre-Operative Diagnosis: right foot 3rd digit diabetic ulcer with 3rd middle and distal phalanx osteomyelitis Operative Findings: see operative report. M: 2-0 Prolene, betadine-soaked Adaptic, DSD Post-Operative Diagnosis: right foot 3rd digit diabetic ulcer with 3rd middle and distal phalanx osteomyelitis Operation Performed: right foot partial 3rd digit amputation Specimen/Specimens Removed: right foot 3rd digit bone Estimated Blood Loss: EBL {In ML}: 5 Blood Products Given: N/A Drains Used: No Drains Post-Op Condition: Good Date of Surgery/Procedure: 12/15/17 Time of Surgery/Procedure: 08:46
[2017-12-15] MEDS ORDERED: HYDROmorphone 0.5 mg/0.5 ml ISec IVP PRN (08:55)
[2017-12-15] MEDS ORDERED: Lactated Ringer's 1,000 ML IV SCH (09:00)
[2017-12-15 09:11] VITALS: O2SAT 100
--- NOTE | 2017-12-15 10:21 | RAD ---
PROCEDURE: Right Foot Radiographs. HISTORY: s/p 3rd digit right foot partial amputation COMPARISON: 12/07/2017 FINDINGS: BONES: Status post interval amputation 3rd digit at the base of the middle phalanx. Old amputation 1st digit. Old amputation 2nd digit at MTP. No acute fracture. No periosteal reaction or osseous erosion to suggest osteomyelitis. JOINTS: Normal. SOFT TISSUES: Normal. OTHER FINDINGS: None. IMPRESSION: Status post interval amputation 3rd digit. Old amputation 1st and 2nd digits.
[2017-12-15 11:38] VITALS: BP 106/63; PULSE 70; RESP 18; TEMP 97.7
--- NOTE | 2017-12-17 02:01 | OP ---
PROCEDURE DATE: 12/15/2017 AGE: 57. SEX: Male. SURGEON: Val Rodgers DPM CONFERENCE MANAGER: Salina Byers DPM, PGY-1 ANESTHESIOLOGISTS: Alvarez Bansal MD/Basil Can CRNA ANESTHESIA: IV sedation plus local. 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 POSTOPERATIVE DIAGNOSIS: Right foot third digit diabetic ulceration with osteomyelitis. NAME OF PROCEDURE: Right foot partial third digit amputation. INDICATIONS: The patient is a 57-year-old male with the above diagnosis. The patient has exhausted all conservative treatment at this time and now requires surgical intervention. The patient signed the consent after careful explanation of risks, benefits, complications and alternatives for surgical procedure. No guarantees were given nor implied. N.p.o. status was confirmed prior to taking the patient to the operating room. PREPARATION: The patient was brought into the operating room, placed on the operating room table in a supine position. A time-out was performed for identification of the correct patient and procedure. After induction of IV sedation, the patient received a total of 10 mL of 1:1 mixture of 2% lidocaine plain and 0.5% Marcaine plain in a V-block fashion to the right foot third digit. The right lower extremity was then prepped and draped in normal sterile manner, and the procedure began. No tourniquet was used during the procedure. DESCRIPTION OF PROCEDURE: Attention was then drawn to the dorsal aspect of the right foot third digit where an ulceration measuring approximately 1.2 cm x 1 cm x 0.4 cm was noted at the distal tip of the third digit. At this time, a fish-mouth circumferential incision was made, extending to the dorsal aspect of the third digit middle phalanx distally and plantarly around the third digit using a sterile #15 blade. The incision was extended down to the subcutaneous layers down to the level of bone. Using a bone clamp to stabilize the toe, the third digit was then disarticulated from the foot at the level of the distal interphalangeal joint. Bone and soft tissue was sent for pathology at this time. Next, a sagittal saw was utilized to resect the head of the third digit middle phalanx. At this time, specimen was also passed off the field and sent for pathology. The site was then copiously irrigated with sterile saline. At this time, the skin was reapproximated with 2-0 Prolene sutures. The surgical site was then dressed with Betadine-soaked Adaptic and a dry sterile dressing. POSTOPERATIVE CONDITION: The patient tolerated the anesthesia and procedure well, was escorted to the recovery room with neurovascular status intact to the right foot and vital signs stable. The patient is to be full weightbearing with the use of a surgical shoe. The patient is stable for discharge from [facility]'s standpoint and is instructed to follow up with Dr. Rodgers in [facility] within 1 week of discharge. Salina Byers DPM Val Rodgers DPM
== END 2017-12-15 11:28 | disposition home or self-care (01) ==
LOC: C.SDS 05:34
PROVIDERS: ATTEND Podiatrist Foot & Ankle Surgery
DX: E11.621 Type 2 diabetes mellitus with foot ulcer (principal); E11.69 Type 2 diabetes mellitus with other specified complication; L97.519 Non-pressure chronic ulcer of other part of right foot with unspecified severity; M86.171 Other acute osteomyelitis, right ankle and foot; E11.52 Type 2 diabetes mellitus with diabetic peripheral angiopathy with gangrene
CPT/HCPCS: 28825; 73630; 82948; 87070; 88305; J0690; J2250; J2704; J3010; J7120

== ENCOUNTER 2018-02-26 13:28 | Emergency (ER) | payer MEDICARE, OTHER ==
[2018-02-26 13:29] VITALS: BMI 23.3
[2018-02-26 13:38] VITALS: RESP 18; TEMP 98
[2018-02-26] MEDS ORDERED: Sodium Chloride 0.9% 1,000 ML IV ONE (14:06)
[2018-02-26 14:33] LABS: BASO # 0.1 K/uL (0.0-0.2); BASO % 1.5 % (0.0-2.0); EOS # 0.1 K/uL (0.0-0.7); EOS % 2.3 % (0.0-4.0); HEMOGLOBIN 14.2 g/dL (12.0-18.0); LYMPH % 43.4 % (20.0-40.0); MEAN CELL VOLUME 84.9 fL (80.0-94.0); MEAN PLATELET VOLUME 8.5 fL (7.2-11.7); MONO # 0.3 K/uL (0.0-0.8); MONO % 6.7 % (0.0-10.0); NEUT # 2.1 K/uL (1.8-7.0); NEUT % 46.1 % (50.0-75.0); NRBC % 0.2 % (0.0-2.0); RBC 5.05 Mil/uL (4.40-5.90); RED CELL DISTRIBUTION WIDTH 14.8 % (11.5-14.5); WHITE BLOOD COUNT 4.6 K/uL (4.8-10.8)
[2018-02-26] MEDS ORDERED: Sodium Chloride 0.9% 1,000 ML ONE (14:37)
[2018-02-26 14:44] LABS: ALB/GLOB RATIO 1.4 (1.0-2.1); ALT/SGPT 22 U/L (21-72); AST/SGOT 19 U/L (17-59); BLOOD UREA NITROGEN 19 mg/dL (9-20); CALCIUM 9.1 mg/dl (8.6-10.4); GFR AFRICAN-AMERICAN > 60; GFR NON-AFRICAN AMERICAN > 60; LIPASE < 10 U/L (23-300)
--- NOTE | 2018-02-26 15:18 | C.PDOC ---
Time Seen by Provider: 02/26/18 13:55 Chief Complaint (Nursing): GI Problem History Per: Patient Onset/Duration Of Symptoms: Days, Intermittent Episodes Current Symptoms Are (Timing): Still Present Severity: Moderate Associated Symptoms: Nausea, Vomiting Exacerbating Factors: Food Last Bowel Movement: Today Additional History Per: Prior Records Past Medical History Reviewed: Historical Data, Nursing Documentation, Vital Signs Vital Signs: Last Vital Signs Temp 98 F 02/26/18 13:35 Pulse 92 H 02/26/18 13:35 Resp 18 02/26/18 13:35 BP 98/60 L 02/26/18 13:35 Pulse Ox 98 02/26/18 13:35 - Medical History PMH: Diabetes, Gastritis, Gastrointestinal Ulcer, HTN Surgical History: Appendectomy - [facility] Procedures DETACHMENT AT RIGHT 1ST TOE, LOW, OPEN APPROACH (08/20/17) Family History: States: Unknown Family Hx - Social History Hx Alcohol Use: Yes (on occasion) Hx Substance Use: No - Immunization History Hx Tetanus Toxoid Vaccination: Yes Hx Influenza Vaccination: No Hx Pneumococcal Vaccination: No Review Of Systems Except As Marked, All Systems Reviewed And Found Negative. Constitutional: Negative for: Fever Cardiovascular: Negative for: Chest Pain Respiratory: Negative for: Shortness of Breath Gastrointestinal: Positive for: Nausea, Vomiting. Negative for: Diarrhea, Constipation, Melena, Hematochezia, Hematemesis Genitourinary: Negative for: Dysuria Musculoskeletal: Negative for: Neck Pain, Back Pain Skin: Negative for: Rash Neurological: Negative for: Weakness, Numbness, Headache Physical Exam - Physical Exam Appears: Non-toxic, No Acute Distress Skin: Normal Color, Warm, Dry, No Rash Head: Atraumatic, Normacephalic Eye(s): bilateral: PERRL, EOMI Oral Mucosa: Moist Neck: Normal ROM, Supple Cardiovascular: Rhythm Regular Respiratory: Normal Breath Sounds, No Accessory Muscle Use Gastrointestinal/Abdominal: Soft, No Tenderness, No Distention Back: No CVA Tenderness Extremity: Normal ROM Neurological/Psych: Oriented x3, Normal Motor, Normal Sensation ED Course And Treatment - Laboratory Results Result Diagrams: 02/26/18 14:25 02/26/18 14:25 O2 Sat by Pulse Oximetry: 98 Pulse Ox Interpretation: Normal Progress Note: Pt feels much better and wants to go home. Pt has had an upper endoscopy recently, but does not know the result yet. Reassessment Condition: Improved Progress - Interventions Interventions:: Observation, Intravenous fluid - Medications Administered Intravenous: Antiemetic, H-2 varun - Data Reviewed Data Reviewed: Lab, Old records - Patient Status Patient status: Mostly improved - Continuity of Care Discussed patient case with:: Patient, ED Nurse - Patient Plan Patient Plan: Discharge, F/U with PCP, Continue present meds Disposition Counseled Patient/Family Regarding: Studies Performed, Diagnosis, Need For Followup, Rx Given - Disposition Referrals: Giovanni Vaughan MD [Staff Provider] - Disposition: HOME/ ROUTINE Disposition Time: 15:18 Condition: IMPROVED Additional Instructions: Follow up with your GI doctor for results of your endoscopy and further evaluation/treatment. Return to the ER if you develop fever, pain, bloody or black stools, vomiting blood, worsening of symptoms or if you have any other concerns. Prescriptions: Metoclopramide [Reglan] 1 tab PO TID PRN #30 tab PRN Reason: Nausea/Vomiting Instructions: Gastritis (DC) - Clinical Impression Clinical Impression: Nausea & vomiting
[2018-02-26 15:29] VITALS: BP 144/87; PULSE 64; O2SAT 99
== END 2018-02-26 15:31 | disposition home or self-care (01) ==
LOC: C.ER 13:28
DX: R11.2 Nausea with vomiting, unspecified (principal); E11.9 Type 2 diabetes mellitus without complications; I10 Essential (primary) hypertension
CPT/HCPCS: 80053; 83690; 83735; 85025; 96361; 96374; 96375; 99284; J2765; J7030

== ENCOUNTER 2018-05-09 16:46 | Inpatient (IN) | payer MEDICARE, OTHER ==
[2018-05-09 16:47] VITALS: BMI 23.3
[2018-05-09 17:24] LABS: BASO # 0.1 K/uL (0.0-0.2); BASO % 1.1 % (0.0-2.0); EOS # 0.1 K/uL (0.0-0.7); EOS % 1.1 % (0.0-4.0); LYMPH # 1.7 K/uL (1.0-4.3); LYMPH % 28.4 % (20.0-40.0); MEAN CELL VOLUME 84.4 fL (80.0-94.0); MEAN CORPUSCULAR HEMOGLOBIN 28.3 pg (27.0-31.0); MEAN CORPUSCULAR HGB CONC 33.6 g/dL (33.0-37.0); MEAN PLATELET VOLUME 8.5 fL (7.2-11.7); MONO # 0.5 K/uL (0.0-0.8); MONO % 7.6 % (0.0-10.0); NEUT # 3.7 K/uL (1.8-7.0); NEUT % 61.8 % (50.0-75.0); NRBC % 0.1 % (0.0-2.0); RBC 5.28 Mil/uL (4.40-5.90); RED CELL DISTRIBUTION WIDTH 13.8 % (11.5-14.5); WHITE BLOOD COUNT 6.1 K/uL (4.8-10.8)
[2018-05-09] MEDS ORDERED: Sodium Chloride 0.9% 1,000 ML IV ONE (17:30)
[2018-05-09 17:45] LABS: ALB/GLOB RATIO 1.3 (1.0-2.1); ALBUMIN 4.3 g/dL (3.5-5.0); ALT/SGPT 33 U/L (21-72); AST/SGOT 34 U/L (17-59); BLOOD UREA NITROGEN 22 mg/dL (9-20); CALCIUM 9.3 mg/dl (8.6-10.4); GFR NON-AFRICAN AMERICAN 52
[2018-05-09] MEDS ORDERED: Sodium Chloride 0.9% 1,000 ML ONE (17:47)
[2018-05-09] MEDS ORDERED: Iohexol 300 100 ML IJ ONE (17:53)
--- NOTE | 2018-05-09 18:40 | CT ---
Date of service: 05/09/2018 PROCEDURE: CT Abdomen and Pelvis with contrast HISTORY: epigastric tenderness COMPARISON: None. TECHNIQUE: Contrast dose: 100 cc of Visipaque 320 intravenously. Axial and reformatted coronal and sagittal CT images of the abdomen and pelvis were obtained after IV contrast administration. Radiation dose: Total exam DLP = 725.13 mGy-cm. This CT exam was performed using one or more of the following dose reduction techniques: Automated exposure control, adjustment of the mA and/or kV according to patient size, and/or use of iterative reconstruction technique. FINDINGS: LOWER THORAX: There is moderate size hiatus hernia associated with diffuse distal esophagus mucosal thickening. Otherwise no evidence of acute pathology at the lung bases. LIVER: Unremarkable. No gross lesion or ductal dilatation. GALLBLADDER AND BILE DUCTS: No evidence of acute cholecystitis. PANCREAS: The pancreas is small in size. No definite evidence of acute pancreatitis or significant dilatation of the main pancreatic duct. SPLEEN: Unremarkable. ADRENALS: Unremarkable. No mass. KIDNEYS AND URETERS: Unremarkable. No hydronephrosis. No solid mass. VASCULATURE: . No aortic aneurysm. No aortic atherosclerotic calcification or mural plaque present. BOWEL: Mildly to moderately dilated stomach demonstrate mild wall thickening. No obstruction. No gross mural thickening. APPENDIX: No evidence of acute appendicitis. PERITONEUM: Unremarkable. No free fluid. No free air. LYMPH NODES: Unremarkable. No enlarged lymph nodes. BLADDER: Sjef-af-nvttyiwp circumferential urinary bladder wall thickening. REPRODUCTIVE: The prostate is moderately enlarged. BONES: No acute fracture. Moderate degenerative changes noted at L5-S1 OTHER FINDINGS: Small left fat containing inguinal hernia noted. IMPRESSION: Small to moderate size hiatus hernia associated with distal esophagus mucosal thickening. Correlate clinically for esophagitis. Mildly to moderately distended stomach demonstrate mild wall thickening suggestive of gastritis.
--- NOTE | 2018-05-09 19:01 | RAD ---
HISTORY: chest pain COMPARISON: Chest x-ray performed 12/07/17 TECHNIQUE: Chest, one view. FINDINGS: LUNGS: Flattening of the hemidiaphragm may be seen in the setting of COPD. No focal consolidation. Please note that chest x-ray has limited sensitivity for the detection of pulmonary masses. PLEURA: No significant pleural effusion identified. No definite pneumothorax . CARDIOVASCULAR: Cardiomegaly. No significant atherosclerotic calcification present. OSSEOUS STRUCTURES: Degenerative changes of the spine. VISUALIZED UPPER ABDOMEN: Unremarkable. OTHER FINDINGS: None. IMPRESSION: Flattening of the hemidiaphragm may be seen in the setting of COPD. Cardiomegaly.
--- NOTE | 2018-05-09 19:28 | C.PDOC ---
History Of Present Illness 57 year old male presents to the ED for evaluation of intractable hiccups for a couple of months. Denies fever, abdominal pain, and any other associated symptoms. Time Seen by Provider: 05/09/18 17:06 Chief Complaint (Nursing): Medical Clearance History Per: Patient History/Exam Limitations: no limitations Onset/Duration Of Symptoms: Days Current Symptoms Are (Timing): Still Present Past Medical History Reviewed: Historical Data, Nursing Documentation, Vital Signs Vital Signs: Last Vital Signs Temp 98.0 F 05/09/18 19:13 Pulse 79 05/09/18 19:13 Resp 15 05/09/18 19:13 BP 142/87 05/09/18 19:13 Pulse Ox 99 05/09/18 19:13 - Medical History PMH: Diabetes, Gastritis, Gastrointestinal Ulcer, HTN Surgical History: Appendectomy - [facility] Procedures DETACHMENT AT RIGHT 1ST TOE, LOW, OPEN APPROACH (08/20/17) Family History: States: Unknown Family Hx - Social History Hx Alcohol Use: Yes (on occasion) Hx Substance Use: No - Immunization History Hx Tetanus Toxoid Vaccination: Yes Hx Influenza Vaccination: No Hx Pneumococcal Vaccination: No Review Of Systems Except As Marked, All Systems Reviewed And Found Negative. Constitutional: Negative for: Fever Cardiovascular: Positive for: Other (intractable hiccups. ) Gastrointestinal: Negative for: Abdominal Pain Physical Exam - Physical Exam Appears: Well, No Acute Distress Skin: Normal Color, Warm, Dry Head: Atraumatic, Normacephalic Eye(s): bilateral: Normal Inspection Oral Mucosa: Moist Neck: Normal ROM, Supple Chest: Symmetrical, No Deformity Cardiovascular: Rhythm Regular, No Murmur Respiratory: Normal Breath Sounds, No Rales, No Rhonchi, No Wheezing Gastrointestinal/Abdominal: Normal Exam, Soft, No Tenderness Neurological/Psych: Oriented x3, Normal Speech ED Course And Treatment - Laboratory Results Result Diagrams: 05/09/18 17:19 05/09/18 17:19 O2 Sat by Pulse Oximetry: 99 (RA) Pulse Ox Interpretation: Normal - Other Rad CXR X-Ray: Viewed By Me, Read By Radiologist Interpretation: FINDINGS: LUNGS: Flattening of the hemidiaphragm may be seen in the setting of COPD. No focal consolidation. Please note that chest x-ray has limited sensitivity for the detection of pulmonary masses. PLEURA: No significant pleural effusion identified. No definite pneumothorax . CARDIOVASCULAR: Cardiomegaly. No significant atherosclerotic calcification present. OSSEOUS STRUCTURES: Degenerative changes of the spine. VISUALIZED UPPER ABDOMEN: Unremarkable. OTHER FINDINGS: None. IMPRESSION: Flattening of the hemidiaphragm may be seen in the setting of COPD. Cardiomegaly. - CT Scan/US CT ABD/Pelvis Other Rad Studies (CT/US): Read By Radiologist CT/US Interpretation: FINDINGS: LOWER THORAX: There is moderate size hiatus hernia associated with diffuse distal esophagus mucosal thickening. Otherwise no evidence of acute pathology at the lung bases. LIVER: Unremarkable. No gross lesion or ductal dilatation. GALLBLADDER AND BILE DUCTS: No evidence of acute cholecystitis. PANCREAS: The pancreas is small in size. No definite evidence of acute pancreatitis or significant dilatation of the main pancreatic duct. SPLEEN: Unremarkable. ADRENALS: Unremarkable. No mass. KIDNEYS AND URETERS: Unremarkable. No hydronephrosis. No solid mass. VASCULATURE: . No aortic aneurysm. No aortic atherosclerotic calcification or mural plaque present. BOWEL: Mildly to moderately dilated stomach demonstrate mild wall thickening. No obstruction. No gross mural thickening. APPENDIX: No evidence of acute appendicitis. PERITONEUM: Unremarkable. No free fluid. No free air. LYMPH NODES: Unremarkable. No enlarged lymph nodes. BLADDER: Szib-sq-qigqbpbg circumferential urinary bladder wall thickening. REPRODUCTIVE: The prostate is moderately enlarged. BONES: No acute fracture. Moderate degenerative changes noted at L5-S1. OTHER FINDINGS: Small left fat containing inguinal hernia noted. IMPRESSION: Small to moderate size hiatus hernia associated with distal esophagus mucosal thickening. Correlate clinically for esophagitis. Mildly to moderately distended stomach demonstrate mild wall thickening suggestive of gastritis. Medical Decision Making Medical Decision Making: Plan: --Blood sent. --CXR. --Pepcid. --Zofran. --CT ABD/Pelvis Progress/Update: Spoke with Dr. Evin Vaughan concerning the patient, agreed to admit. Disposition - Disposition Disposition Time: 18:30 Condition: STABLE - Clinical Impression Clinical Impression: Abdominal pain - Scribe Statement The provider has reviewed the documentation as recorded by the Scribe (Ghazala Biggs) Provider Attestation: All medical record entries made by the Scribe were at my direction and personally dictated by me. I have reviewed the chart and agree that the record accurately reflects my personal performance of the history, physical exam, medical decision making, and the department course for this patient. I have also personally directed, reviewed, and agree with the discharge instructions and disposition.
[2018-05-09] MEDS: (Novolin R) Insulin Human Regular 100 units/ml vial SC SCH (21:36)
[2018-05-09 22:31] LABS: AMYLASE 83 U/L (30-110); LIPASE 12 U/L (23-300)
--- NOTE | 2018-05-09 23:55 | CP.PCM.HP ---
Past Patient History - Infectious Disease Hx of Infectious Diseases: None - Tetanus Immunizations Tetanus Immunization: Unknown - Past Medical History & Family History Past Medical History?: Yes - Past Social History Smoking Status: Former Smoker - CARDIAC Hx Hypertension: Yes - ENDOCRINE/METABOLIC Hx Endocrine Disorders: Yes Hx Diabetes Mellitus Type 2: Yes - INTEGUMENTARY Hx Dermatological Problems: Yes Other/Comment: HX: GANGRENE RIGHT FOOT TOE(GREAT). 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) - GASTROINTESTINAL Hx Gastritis: Yes - PSYCHIATRIC Hx Substance Use: No - SURGICAL HISTORY Hx Appendectomy: Yes - ANESTHESIA Hx Anesthesia: Yes Hx Anesthesia Reactions: No Hx Malignant Hyperthermia: No Meds Allergies/Adverse Reactions: Allergies Allergy/AdvReac Type Severity Reaction Status Date / Time No Known Allergies Allergy Verified 02/26/18 13:33 Results - Vital Signs Recent Vital Signs: Last Vital Signs Temp 97.4 F L 05/09/18 21:15 Pulse 66 05/09/18 21:15 Resp 20 05/09/18 21:15 BP 148/90 05/09/18 21:15 Pulse Ox 97 05/09/18 22:52 - Labs Result Diagrams: 05/09/18 17:19 05/09/18 17:19 Labs: Laboratory Results - last 24 hr 05/09/18 05/09/18 05/09/18 17:19 17:19 21:29 WBC 6.1 RBC 5.28 Hgb 15.0 Hct 44.5 MCV 84.4 MCH 28.3 MCHC 33.6 RDW 13.8 Plt Count 318 MPV 8.5 Neut % (Auto) 61.8 Lymph % (Auto) 28.4 [place] % (Auto) 7.6 Eos % (Auto) 1.1 Baso % (Auto) 1.1 Neut # (Auto) 3.7 Lymph # (Auto) 1.7 [place] # (Auto) 0.5 Eos # (Auto) 0.1 Baso # (Auto) 0.1 Sodium 140 Potassium 4.0 Chloride 95 L Carbon Dioxide 33 H Anion Gap 16 BUN 22 H Creatinine 1.4 Est GFR ( Amer) > 60 Est GFR (Non-Af Amer) 52 POC Glucose (mg/dL) 61 L Random Glucose 171 H Calcium 9.3 Total Bilirubin 0.9 AST 34 ALT 33 Alkaline Phosphatase 231 H D Troponin I 0.0140 Total Protein 7.6 Albumin 4.3 Globulin 3.3 Albumin/Globulin Ratio 1.3 Amylase Lipase 05/09/18 05/09/18 05/09/18 21:31 22:07 22:23 WBC RBC Hgb Hct MCV MCH MCHC RDW Plt Count MPV Neut % (Auto) Lymph % (Auto) [place] % (Auto) Eos % (Auto) Baso % (Auto) Neut # (Auto) Lymph # (Auto) [place] # (Auto) Eos # (Auto) Baso # (Auto) Sodium Potassium Chloride Carbon Dioxide Anion Gap BUN Creatinine Est GFR ( Amer) Est GFR (Non-Af Amer) POC Glucose (mg/dL) 68 123 H Random Glucose Calcium Total Bilirubin AST ALT Alkaline Phosphatase Troponin I Total Protein Albumin Globulin Albumin/Globulin Ratio Amylase 83 Lipase 12 L
[2018-05-10] MEDS: (Novolin R) Insulin Human Regular 100 units/ml vial SC SCH ×4 (07:34→21:52)
--- NOTE | 2018-05-10 07:53 | HP ---
CHIEF COMPLAINT: Intractable hiccups for the past few months and worse in the last four to five days with failed outpatient treatment. HISTORY OF PRESENT ILLNESS: This is a 57-year-old male with history of diabetes, on insulin. He is compliant with his diet, medication, and followup. He has history of persistent hiccups for the last few months, and in the last few days, the patient has no relief. He is constantly having hiccups. He cannot eat. Whenever he eats, he feels nauseous, and he feels like vomiting. He has generalized weakness. He denies any polyuria, polydipsia, polyphagia. He has intractable abdominal pain with coughing. He denies any loose watery stool. He denies any history of dysuria, hematuria, pyuria. He denies any sneezing, itchy eyes, itchy nose. The patient denies any history of trauma, fall, loss of consciousness. He denies any substance abuse. He has history of prior gastric ulcer and gastritis. SOCIAL HISTORY: He smokes, and he is a social alcohol user. CURRENT MEDICATION: Insulin. PAST MEDICAL HISTORY: Type 2 diabetes, on insulin. PHYSICAL EXAMINATION: GENERAL: A middle-aged male in acute nxtwojql-vj-qudbgv distress with cough. VITAL SIGNS: Blood pressure 148/90, pulse 66, respiratory rate 20, temperature 97.4. LUNGS: Clear. CVS: S1, S2, regular. ABDOMEN: Soft. Nontender. Bowel sounds are exaggerated. RECTAL: No masses. No bleed. EXTREMITIES: No clubbing, cyanosis, or edema. TELEMARKETER: Awake, alert, and oriented x3. Cranial nerves II through XII are normal. Power 5/5 x4. Plantars are downgoing. NECK: Supple. No JVD. ASSESSMENT: 1. Intractable hiccup, etiology unclear. 2. Type 2 diabetes. 3. Hypertension. PLAN: Thorazine, Reglan, GI consult. Monitor the patient. Giovanni Vaughan MD
[2018-05-10] MEDS: Enoxaparin 40 mg Syringe SC SCH (09:36)
[2018-05-10] MEDS: Pantoprazole 40 mg EC Tab PO SCH (12:40)
--- NOTE | 2018-05-10 22:56 | CP.PCM.PN ---
Subjective - Subjective Subjective: dictated Objective - Vital Signs/Intake and Output Vital Signs (last 24 hours): Temp Pulse Resp BP Pulse Ox 97.6 F 67 20 124/82 96 05/10/18 15:00 05/10/18 15:00 05/10/18 15:00 05/10/18 15:00 05/10/18 16:46 Intake and Output: 05/10/18 05/11/18 18:59 06:59 Intake Total 800 Balance 800 - Medications Medications: Current Medications Chlorpromazine (Thorazine) 25 mg PO Q6H PRN PRN Reason: Hiccups Last Admin: 05/10/18 17:47 Dose: 25 mg Enoxaparin Sodium (Lovenox) 40 mg SC DAILY [facility] Last Admin: 05/10/18 09:36 Dose: Not Given Insulin Human Regular (Novolin R) 0 unit SC [facility]; Protocol Last Admin: 05/10/18 21:52 Dose: Not Given Metoclopramide HCl (Reglan) 10 mg PO TID [facility] Last Admin: 05/10/18 17:07 Dose: 10 mg Pantoprazole Sodium (Protonix Ec Tab) 40 mg PO DAILY [facility] Last Admin: 05/10/18 12:40 Dose: 40 mg Rosuvastatin Calcium (Crestor) 5 mg PO [facility] Last Admin: 05/10/18 21:28 Dose: 5 mg - Labs Labs: 05/09/18 17:19 05/09/18 17:19
--- NOTE | 2018-05-11 06:21 | PN ---
DATE: 05/10/2018 SUBJECTIVE: The patient, Gume, denies any hiccup today. He is on medication. No fever. No chills. CT of the abdomen was negative. PHYSICAL EXAMINATION: VITAL SIGNS: Blood pressure 124/82, pulse 67, respiratory rate 20, and temperature 97.6. LUNGS: Clear. No rales. No rhonchi. CARDIOVASCULAR SYSTEM: S1, S2, regular. ABDOMEN: Soft, nontender. Bowel sounds are positive. ASSESSMENT: 1. Intractable hiccups. 2. Dehydration. 3. Uncontrolled diabetes. 4. Hyperlipidemia. PLAN: Continue medical management. Monitor the patient. Giovanni Vaughan MD
[2018-05-11] MEDS: (Novolin R) Insulin Human Regular 100 units/ml vial SC SCH ×4 (07:26→22:58)
--- NOTE | 2018-05-11 09:15 | CP.PCM.CON ---
<Bharat Hardy - Last Filed: 05/11/18 18:12> History of Present Illness - History of Present Illness History of Present Illness: PGY6 GI Fellow Consult Note Patient is a 57yo male with PMHx significant for hypertension, uncontrolled diabetes mellitus complicated by history of osteomyelitis requiring multiple digit amputations who presented to the ED with complaint of nausea, vomiting and intractable hiccups for 6 months. The patient does not appear to be compliant with his outpatient therapies as recommended and is unaware of any of his medications. Symptoms began suddenly 6 months ago and have persisted, worsening in the last week. Initially he only had episodes of nausea in the morning but now admits to early satiety and sensation of heaviness in the epigastrium after eating that causes nausea and regurgitation of undigested food within an hour of eating. During this time frame he admits to frequent heartburn and prolonged episodes of hiccups. When hiccups occur, they can last anywhere from minutes to hours without any relief. Per medical record, patient uses Reglan at home but he cannot confirm this. Regardless, states that medications he is using presently are ineffective. Does admit to an endoscopy within the last year though he cannot recall the physician's name or results of procedure. Denies any weight loss, abdominal pain, change in bowel habits, hematochezia, melena. 12 system ROS performed and negative except where stated PMHx: See HPI PSHx: Multiple digit amputations on feet B/L, appnedectomy FHx: Parents - DM Social: Former ppd smoker, +social EtOH use, +marijuana use Endo: EGD with unknown results as mentioned - no prior colonoscopy Past Patient History - Infectious Disease Hx of Infectious Diseases: None - Tetanus Immunizations Tetanus Immunization: Unknown - Past Medical History & Family History Past Medical History?: Yes - Past Social History Smoking Status: Former Smoker - CARDIAC Hx Hypertension: Yes - ENDOCRINE/METABOLIC Hx Endocrine Disorders: Yes Hx Diabetes Mellitus Type 2: Yes - INTEGUMENTARY Hx Dermatological Problems: Yes Other/Comment: HX: GANGRENE RIGHT FOOT TOE(GREAT). 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) - GASTROINTESTINAL Hx Gastritis: Yes - PSYCHIATRIC Hx Substance Use: No - SURGICAL HISTORY Hx Appendectomy: Yes - ANESTHESIA Hx Anesthesia: Yes Hx Anesthesia Reactions: No Hx Malignant Hyperthermia: No Meds Allergies/Adverse Reactions: Allergies Allergy/AdvReac Type Severity Reaction Status Date / Time No Known Allergies Allergy Verified 02/26/18 13:33 - Medications Medications: Current Medications Chlorpromazine (Thorazine) 25 mg PO Q6H PRN PRN Reason: Hiccups Last Admin: 05/10/18 17:47 Dose: 25 mg Enoxaparin Sodium (Lovenox) 40 mg SC DAILY [facility] Last Admin: 05/10/18 09:36 Dose: Not Given Insulin Human Regular (Novolin R) 0 unit SC [facility]; Protocol Last Admin: 05/11/18 07:26 Dose: 5 units Metoclopramide HCl (Reglan) 10 mg PO TID [facility] Last Admin: 05/10/18 17:07 Dose: 10 mg Pantoprazole Sodium (Protonix Ec Tab) 40 mg PO DAILY [facility] Last Admin: 05/10/18 12:40 Dose: 40 mg Rosuvastatin Calcium (Crestor) 5 mg PO HS [facility] Last Admin: 05/10/18 21:28 Dose: 5 mg Physical Exam - Constitutional Appears: Non-toxic, No Acute Distress - Eye Exam Eye Exam: EOMI, PERRL - ENT Exam ENT Exam: Mucous Membranes Moist - Respiratory Exam Respiratory Exam: Clear to Auscultation Bilateral. absent: Rales, Rhonchi, Wheezes - Cardiovascular Exam Cardiovascular Exam: RRR, +S1, +S2 - GI/Abdominal Exam GI & Abdominal Exam: Hernia (ventral hernia), Normal Bowel Sounds, Soft. absent: Distended, Firm, Guarding, Organomegaly, Rigid, Tenderness - Extremities Exam Additional comments: B/L digit amputations, no LE edema - Neurological Exam Neurological exam: Alert, Oriented x3 - Psychiatric Exam Psychiatric exam: Normal Affect, Normal Mood - Skin Skin Exam: Dry, Warm Results - Vital Signs Recent Vital Signs: Last Vital Signs Temp 97.6 F 05/11/18 07:35 Pulse 63 05/11/18 07:35 Resp 20 05/11/18 07:35 BP 144/91 H 05/11/18 07:35 Pulse Ox 98 05/11/18 08:15 - Labs Result Diagrams: 05/09/18 17:19 05/09/18 17:19 Labs: Laboratory Results - last 24 hr 05/10/18 05/10/18 11:26 16:14 POC Glucose (mg/dL) 370 H 329 H Assessment & Plan - Assessment and Plan (Free Text) Assessment: Patient is a 57yo male with PMHx significant for hypertension, uncontrolled diabetes mellitus complicated by history of osteomyelitis requiring multiple digit amputations who presented to the ED with complaint of nausea, vomiting and intractable hiccups for 6 months -Nuasea/regurgitation - R/O diabetic gatroparesis -Hiccups -Diabetes mellitus -Hypertension Plan: -CT scan reviewed - esophageal thickening noted -Recommend PPI therapy BID, esophagitis and reflux can lead to hiccups -Consider addition of Carafate -Recommend strict glycemic control -6 small meals, low fat/fiber -Plan for EGD tomorrow morning; NPO past MN -Consider outpatient endocrinology follow up given uncontrolled DM -Antiemetics as needed -Cautious use of Reglan - explained neurologic side effects to patient with prolonged use - Date & Time Date: 05/11/18 Time: 06:40 <Rohan Padilla - Last Filed: 05/11/18 18:59> Meds - Medications Medications: Current Medications Chlorpromazine (Thorazine) 25 mg PO Q6H PRN PRN Reason: Hiccups Last Admin: 05/11/18 10:34 Dose: 25 mg Enoxaparin Sodium (Lovenox) 40 mg SC DAILY [facility] Last Admin: 05/11/18 09:27 Dose: Not Given Insulin Aspart (Novolog Mix 70/30 (70/30 Units/Ml)) 30 units SC ACB [facility] Insulin Aspart (Novolog Mix 70/30 (70/30 Units/Ml)) 30 units SC ACD [facility] Insulin Human Regular (Novolin R) 0 unit SC ACHS [facility]; Protocol Last Admin: 05/11/18 18:47 Dose: 3 unit Metoclopramide HCl (Reglan) 10 mg PO TID [facility] Last Admin: 05/11/18 18:48 Dose: 10 mg Pantoprazole Sodium (Protonix Ec Tab) 40 mg PO BID [facility] Last Admin: 05/11/18 18:48 Dose: 40 mg Rosuvastatin Calcium (Crestor) 5 mg PO HS [facility] Last Admin: 05/10/18 21:28 Dose: 5 mg Results - Vital Signs Recent Vital Signs: Last Vital Signs Temp 97.6 F 05/11/18 07:35 Pulse 63 05/11/18 07:35 Resp 20 05/11/18 07:35 BP 144/91 H 05/11/18 07:35 Pulse Ox 98 05/11/18 11:35 - Labs Result Diagrams: 05/09/18 17:19 05/09/18 17:19 Labs: Laboratory Results - last 24 hr 05/10/18 05/11/18 05/11/18 21:06 06:12 11:15 POC Glucose (mg/dL) 219 H 371 H Hemoglobin A1c 11.1 H 05/11/18 05/11/18 05/11/18 11:57 12:34 16:54 POC Glucose (mg/dL) 413 H* 430 H* 285 H Hemoglobin A1c Attending/Attestation - Attestation I have personally seen and examined this patient.: Yes I have fully participated in the care of the patient.: Yes I have reviewed all pertinent clinical information: Yes Notes (Text): 05/11/18 18:52 I have seen and examined patient with GI fellow. Agree with above documentation with the following additions. In brief, this is a 57 year old male with history of DM (uncontrolled), HTN, osteomyelitis with multiple digit amputations, who presents to hospital with complaint of abdominal pain, nausea, vomiting, and recurrent hiccups for the past several months which have worsened over the past one week. He admits to medication non-compliance and is aware that his diabetes is not controlled well. He reports generalized abdominal pain, worse in epigastric region associated with multiple episodes of nausea and non-bloody emesis during this time period. He denies fever/chills, weight loss, rectal ble eding, or change in bowel habits. He claims to have had an EGD 4 months ago which showed "gastritis" as per patient. HTN DM - uncontrolled Abdominal pain, nausea, vomiting - suspect gastroparesis given clinical scenario CT imaging reviewed by me showing distal esophageal wall thickening - Diet as tolerated, suggest small frequent meals throughout the day - Maintain strict glycemic control - Anti-emetic therapy PRN - Continue with PPI therapy - Will plan for EGD tomorrow given esophageal abnormality seen on CT imaging, rule out underlying lesion. Attempt made, but unable to obtain prior endoscopy report - Patient will benefit from outpatient screening colonoscopy since he has not had one prior. Will continue to monitor patient clinical course.
[2018-05-11] MEDS: Pantoprazole 40 mg EC Tab PO SCH ×2 (09:26→18:48)
[2018-05-11] MEDS: Enoxaparin 40 mg Syringe SC SCH (09:27)
[2018-05-11] MEDS ORDERED: (Novolin R) Insulin Human Regular 100 units/ml vial SC SCH (12:15)
[2018-05-11] MEDS ORDERED: (Novolin 70/30) NPH/Regular 70/30 Units/ml 10 ml vial SC SCH (16:30)
[2018-05-11] MEDS ORDERED: (Novolog Mix 70/30) Insulin Aspart/Insulin Aspar 100 units/ml SC SCH (18:45)
--- NOTE | 2018-05-11 21:47 | CP.PCM.PN ---
Subjective - Subjective Subjective: dictated Objective - Vital Signs/Intake and Output Vital Signs (last 24 hours): Temp Pulse Resp BP Pulse Ox 98.1 F 75 20 123/73 95 05/11/18 15:00 05/11/18 15:00 05/11/18 15:00 05/11/18 15:00 05/11/18 15:00 - Medications Medications: Current Medications Chlorpromazine (Thorazine) 25 mg PO Q6H PRN PRN Reason: Hiccups Last Admin: 05/11/18 10:34 Dose: 25 mg Enoxaparin Sodium (Lovenox) 40 mg SC DAILY [facility] Last Admin: 05/11/18 09:27 Dose: Not Given Insulin Aspart (Novolog Mix 70/30 (70/30 Units/Ml)) 30 units SC ACB [facility] Insulin Aspart (Novolog Mix 70/30 (70/30 Units/Ml)) 30 units SC ACD [facility] Last Admin: 05/11/18 18:55 Dose: 30 unit Insulin Human Regular (Novolin R) 0 unit SC ACHS [facility]; Protocol Last Admin: 05/11/18 18:47 Dose: 3 unit Metoclopramide HCl (Reglan) 10 mg PO TID [facility] Last Admin: 05/11/18 18:48 Dose: 10 mg Pantoprazole Sodium (Protonix Ec Tab) 40 mg PO BID [facility] Last Admin: 05/11/18 18:48 Dose: 40 mg Rosuvastatin Calcium (Crestor) 5 mg PO HS [facility] Last Admin: 05/10/18 21:28 Dose: 5 mg - Labs Labs: 05/09/18 17:19 05/09/18 17:19
--- NOTE | 2018-05-11 23:55 | CARD ---
APPROVED REPORT Date of service: 05/09/2018 EKG Measurement Heart [id number] <Conclusion> Normal sinus rhythm Normal ECG
--- NOTE | 2018-05-11 23:56 | CARD ---
APPROVED REPORT Date of service: 05/09/2018 EKG Measurement Heart [id number] CO [id number] <Conclusion> Normal sinus rhythm Nonspecific ST abnormality Abnormal ECG
[2018-05-12] MEDS ORDERED: Dextrose 50% SYRINGE Inj (50 ml) IV STA (03:56)
--- NOTE | 2018-05-12 03:57 | CP.PCM.PCO ---
Addendum entered and electronically signed by Zac Ascencio 05/12/18 06:27: House doctor note. Paged for patient agitation. Patient was extremely agitated, attempted to leave the bed. 2mg IV atitvan ordered. Patient responded well. Original Note:
[2018-05-12] MEDS ORDERED: (Novolog Mix 70/30) Insulin Aspart/Insulin Aspar 100 units/ml SC SCH ×3 (07:30→08:46)
[2018-05-12] MEDS: (Novolin R) Insulin Human Regular 100 units/ml vial SC SCH ×3 (07:31→14:12)
[2018-05-12 07:34] LABS: INR 0.9
--- NOTE | 2018-05-12 08:47 | PN ---
DATE: 05/11/2018 SUBJECTIVE: The patient, Nikolas Dunaway, is here for endoscopy tomorrow morning. His hiccup is better. He still has abdominal pain. His blood sugars has been high. He is afebrile. No shortness of breath. No nausea or vomiting. PHYSICAL EXAMINATION: VITAL SIGNS: Blood pressure 123/73, pulse 75, respiratory rate 20, temperature 98.1. LUNGS: Clear. No rales. No rhonchi. CARDIOVASCULAR SYSTEM: S1, S2, regular. ABDOMEN: Soft, nontender. Bowel sounds are positive. ASSESSMENT: 1. Hiccup. Rule out peptic ulcer disease. Rule out gastric mass. The patient is for endoscopy tomorrow morning. 2. Type 2 diabetes, on insulin. 3. Dehydration. PLAN: Continue current medication. Endoscopy in a.m. Giovanni Vaughan MD
[2018-05-12] MEDS ORDERED: Dextrose 5%/0.45% NS 1,000 ML IV SCH (09:00)
[2018-05-12] MEDS: Pantoprazole 40 mg EC Tab PO SCH (10:34)
[2018-05-12] MEDS ORDERED: Lactated Ringer's 500 ML IV ONE (13:00)
[2018-05-12] MEDS ORDERED: Midazolam 2 MG/2 ML VIAL ONE (13:02)
[2018-05-12] MEDS ORDERED: Propofol 10 mg/ml Inj (20 ML) ONE (13:02)
--- NOTE | 2018-05-12 13:18 | CP.PCM.PN ---
Subjective - Date & Time of Evaluation Date of Evaluation: 05/12/18 Time of Evaluation: 13:15 - Subjective Subjective: Patient seen and examined, resting in bed comfortably. No acute events overnight. He was able to tolerate PO diet yesterday without recurrent nausea, vomiting. s/p EGD today showing mild gastritis, no focal esophageal abnormalities. Objective - Vital Signs/Intake and Output Vital Signs (last 24 hours): Temp Pulse Resp BP Pulse Ox 97.6 F 60 20 140/96 H 100 05/12/18 13:00 05/12/18 13:00 05/12/18 13:00 05/12/18 13:00 05/12/18 13:00 Intake and Output: 05/12/18 05/12/18 06:59 18:59 Intake Total 500 Balance 500 - Medications Medications: Current Medications Chlorpromazine (Thorazine) 25 mg PO Q6H PRN PRN Reason: Hiccups Last Admin: 05/11/18 10:34 Dose: 25 mg Enoxaparin Sodium (Lovenox) 40 mg SC DAILY [facility] Last Admin: 05/11/18 09:27 Dose: Not Given Dextrose/Sodium Chloride (Dextrose 5%/0.45% Ns 1000 Ml) 1,000 mls @ 100 mls/hr IV .Q10H [facility] Stop: 05/12/18 18:59 Last Admin: 05/12/18 08:59 Dose: 100 mls/hr Insulin Aspart (Novolog Mix 70/30 (70/30 Units/Ml)) 20 units SC ACD [facility] Insulin Aspart (Novolog Mix 70/30 (70/30 Units/Ml)) 20 units SC ACB [facility] Insulin Human Regular (Novolin R) 0 unit SC ACHS [facility]; Protocol Last Admin: 05/12/18 12:39 Dose: Not Given Metoclopramide HCl (Reglan) 10 mg PO TID [facility] Last Admin: 05/12/18 10:35 Dose: Not Given Rosuvastatin Calcium (Crestor) 5 mg PO HS [facility] Last Admin: 05/11/18 21:50 Dose: 5 mg - Labs Labs: 05/09/18 17:19 05/09/18 17:19 PT 10.0 SECONDS (9.7-12.2) 05/12/18 06:44 INR 0.9 05/12/18 06:44 Assessment and Plan - Assessment and Plan (Free Text) Assessment: HTN DM Abdominal pain, nausea - resolved, suspect gastroparesis s/p EGD today showing mild gastritis, otherwise normal exam Plan: - Advance diet as tolerated, suggest 6 small meals throughout the course of the day - Follow up biopsy results - Maintain strict glycemic control - Patient would benefit from initial screening colonoscopy, electively as outpatient. No further planned GI intervention, will sign off case. Please reconsult as necessary, thank you.
[2018-05-12 14:15] VITALS: TEMP 97.6
--- NOTE | 2018-05-12 15:21 | CP.PCM.PN ---
Subjective - Date & Time of Evaluation Date of Evaluation: 05/12/18 Time of Evaluation: 14:45 - Subjective Subjective: Patient seen today, after EGD , denies any complaints , less hiccups s/p EGD - mild gastritis ( see full report for details) tolerated diet after EGD vss and labs reviewed and stable BS stable Objective - Vital Signs/Intake and Output Vital Signs (last 24 hours): Temp Pulse Resp BP Pulse Ox 97.6 F 71 18 154/96 H 98 05/12/18 14:05 05/12/18 14:05 05/12/18 14:05 05/12/18 14:05 05/12/18 14:05 Intake and Output: 05/12/18 05/12/18 06:59 18:59 Intake Total 500 Balance 500 - Medications Medications: Current Medications Chlorpromazine (Thorazine) 25 mg PO Q6H PRN PRN Reason: Hiccups Last Admin: 05/11/18 10:34 Dose: 25 mg Enoxaparin Sodium (Lovenox) 40 mg SC DAILY [facility] Last Admin: 05/11/18 09:27 Dose: Not Given Dextrose/Sodium Chloride (Dextrose 5%/0.45% Ns 1000 Ml) 1,000 mls @ 100 mls/hr IV .Q10H [facility] Stop: 05/12/18 18:59 Last Admin: 05/12/18 08:59 Dose: 100 mls/hr Insulin Aspart (Novolog Mix 70/30 (70/30 Units/Ml)) 20 units SC ACD [facility] Insulin Aspart (Novolog Mix 70/30 (70/30 Units/Ml)) 20 units SC ACB [facility] Insulin Human Regular (Novolin R) 0 unit SC ACHS [facility]; Protocol Last Admin: 05/12/18 14:12 Dose: 2 unit Metoclopramide HCl (Reglan) 10 mg PO TID [facility] Last Admin: 05/12/18 13:43 Dose: Not Given Pantoprazole Sodium (Protonix Ec Tab) 40 mg PO DAILY [facility] Rosuvastatin Calcium (Crestor) 5 mg PO HS [facility] Last Admin: 05/11/18 21:50 Dose: 5 mg - Labs Labs: 05/09/18 17:19 05/09/18 17:19 PT 10.0 SECONDS (9.7-12.2) 05/12/18 06:44 INR 0.9 05/12/18 06:44 - Constitutional Appears: Well, No Acute Distress - Cardiovascular Exam Cardiovascular Exam: REGULAR RHYTHM, +S1, +S2 - GI/Abdominal Exam GI & Abdominal Exam: Soft, Normal Bowel Sounds Assessment and Plan - Assessment and Plan (Free Text) Assessment: A/P 57 yr old male with pmhx of Diabetes, Gastritis, , HTN admitted with hiccups and abdominal pain Hiccups improved with Thorazine s/p EGD showing mild gastritis, otherwise normal exam and GI cleared for discharge home and out pt follow up for colonoscopy D/w Dr. Vaughan cleared for discharge home today and f/u with Dr. Vaughan offic ein 1 week discharge plan discussed with patient who understands and agrees with plan
[2018-05-12 16:07] VITALS: BP 144/81; PULSE 66; RESP 20; O2SAT 97
--- NOTE | 2018-05-12 21:59 | CP.PCM.DIS ---
Provider - Provider Date of Admission: 05/11/18 18:18 Attending physician: Giovanni Vaughan MD Hospital Course - Lab Results Lab Results: Most Recent Lab Values WBC 6.1 K/uL (4.8-10.8) 05/09/18 17:19 RBC 5.28 Mil/uL (4.40-5.90) 05/09/18 17:19 Hgb 15.0 g/dL (12.0-18.0) 05/09/18 17:19 Hct 44.5 % (35.0-51.0) 05/09/18 17:19 MCV 84.4 fL (80.0-94.0) 05/09/18 17:19 MCH 28.3 pg (27.0-31.0) 05/09/18 17:19 MCHC 33.6 g/dL (33.0-37.0) 05/09/18 17:19 RDW 13.8 % (11.5-14.5) 05/09/18 17:19 Plt Count 318 K/uL (130-400) 05/09/18 17:19 MPV 8.5 fL (7.2-11.7) 05/09/18 17:19 Neut % (Auto) 61.8 % (50.0-75.0) 05/09/18 17:19 Lymph % (Auto) 28.4 % (20.0-40.0) 05/09/18 17:19 [place] % (Auto) 7.6 % (0.0-10.0) 05/09/18 17:19 Eos % (Auto) 1.1 % (0.0-4.0) 05/09/18 17:19 Baso % (Auto) 1.1 % (0.0-2.0) 05/09/18 17:19 Neut # (Auto) 3.7 K/uL (1.8-7.0) 05/09/18 17:19 Lymph # (Auto) 1.7 K/uL (1.0-4.3) 05/09/18 17:19 [place] # (Auto) 0.5 K/uL (0.0-0.8) 05/09/18 17:19 Eos # (Auto) 0.1 K/uL (0.0-0.7) 05/09/18 17:19 Baso # (Auto) 0.1 K/uL (0.0-0.2) 05/09/18 17:19 PT 10.0 SECONDS (9.7-12.2) 05/12/18 06:44 INR 0.9 05/12/18 06:44 Sodium 140 mmol/L (132-148) 05/09/18 17:19 Potassium 4.0 mmol/L (3.6-5.2) 05/09/18 17:19 Chloride 95 mmol/L (98-107) L 05/09/18 17:19 Carbon Dioxide 33 mmol/L (22-30) H 05/09/18 17:19 Anion Gap 16 (10-20) 05/09/18 17:19 BUN 22 mg/dL (9-20) H 05/09/18 17:19 Creatinine 1.4 mg/dL (0.8-1.5) 05/09/18 17:19 Est GFR ( Amer) > 60 05/09/18 17:19 Est GFR (Non-Af Amer) 52 05/09/18 17:19 POC Glucose (mg/dL) 419 mg/dL (65-110) H* 05/12/18 16:33 Random Glucose 171 mg/dL (75-110) H 05/09/18 17:19 Hemoglobin A1c 11.1 % (4.2-6.5) H 05/11/18 11:15 Calcium 9.3 mg/dl (8.6-10.4) 05/09/18 17:19 Total Bilirubin 0.9 mg/dL (0.2-1.3) 05/09/18 17:19 AST 34 U/L (17-59) 05/09/18 17:19 ALT 33 U/L (21-72) 05/09/18 17:19 Alkaline Phosphatase 231 U/L (38-126) H D 05/09/18 17:19 Troponin I 0.0140 ng/mL (0.00-0.120) 05/09/18 17:19 Total Protein 7.6 g/dL (6.3-8.3) 05/09/18 17:19 Albumin 4.3 g/dL (3.5-5.0) 05/09/18 17:19 Globulin 3.3 gm/dL (2.2-3.9) 05/09/18 17:19 Albumin/Globulin Ratio 1.3 (1.0-2.1) 05/09/18 17:19 Amylase 83 U/L (30-110) 05/09/18 22:23 Lipase 12 U/L (23-300) L 05/09/18 22:23 Discharge Plan - Discharge Medications Prescriptions: Blood-Glucose Meter [Accu-Chek Guide Monitor System] 1 each QID #1 each Blood Sugar Diagnostic [Accu-Chek Guide Test Strip] 1 each QID #100 strip Lancing Device/Lancets [Accu-Chek Multiclix Lancet Kit] 1 each QID #100 kit Rosuvastatin Calcium [Crestor] 5 mg PO HS #30 tab Pantoprazole [Protonix EC Tab] 40 mg PO DAILY #30 ect Metoclopramide [Reglan] 10 mg PO TID #30 tab chlorproMAZINE [Thorazine] 25 mg PO Q6H PRN #40 tab PRN Reason: Hiccups - Follow Up Plan Condition: STABLE Disposition: HOME/ ROUTINE Instructions: Type 2 Diabetes, Chlorpromazine, Metoclopramide, Pantoprazole, Rosuvastatin, Acute Abdominal Pain (DC) Additional Instructions: Please f/u with Dr. Vaughan office in 1 week Please f/u with Dr. Padilla office in 2-3 weeks ( f/U visit and colonoscopy) - call and make appointment Continue medication as per Med. rec. Please check your blood sugar 3/day and record and bring to Dr. Vaughan PLEASE DIVIDE MEALS TO 6/DAY( SMALL MEALS) PLEASE DO NOT TAKE THORAZINE AND REGLAN AT THE SAME TIME PLEASE [facility]NIC[facility] MEDICATION FROM [facility] Referrals: Giovanni Vaughan MD [Staff Provider] -
[2018-05-13] MEDS ORDERED: Pantoprazole 40 mg EC Tab PO SCH (10:00)
--- NOTE | 2018-05-13 20:40 | DS ---
ADMITTING DIAGNOSIS: Hiccups, intractable. DISCHARGE DIAGNOSES: 1. Intractable hiccups. 2. Dehydration. 3. Type 2 diabetes. HISTORY OF PRESENT ILLNESS: This is a 57-year-old male well known to me with history of type 2 diabetes, who came in because of intractable hiccups, which failed to respond to all kind of medical treatment on an outpatient basis. The patient was admitted. He was started on Thorazine and Reglan and a GI consult was done. The patient underwent a CT of the abdomen and pelvis with contrast with no acute findings. GI evaluation was done and he underwent an EGD which is benign. The patient is feeling better. He is being discharged with outpatient followup. PHYSICAL EXAMINATION: VITAL SIGNS: Blood pressure 144/81, pulse 66, respiratory rate 20, temperature 97.6. LABORATORY DATA: PT and PTT are normal. WBC is , hemoglobin 15, hematocrit 34.5, platelets 318. Chemistries show a sodium of 140, potassium 4, chloride 95, bicarbonate 33, BUN 22, creatinine 1.4. LFTs benign except for alkaline phosphatase of 234. CONDITION UPON DISCHARGE: Stable. Giovanni Vaughan MD
== END 2018-05-12 18:09 | disposition home or self-care (01) | DRG 204 ==
LOC: C.ER 16:46 → C.9E 18:54 → C.5S 20:47 → OBSVTOIN 05-11 18:18
PROVIDERS: ADMIT Internal Medicine; ATTEND Internal Medicine
PROC: 0DB68ZX Excision of Stomach, Via Natural or Artificial Opening Endoscopic, Diagnostic (ICD-10-PCS; principal; 2018-05-12 13:02)
DX: R06.6 Hiccough (principal); E86.0 Dehydration; K29.50 Unspecified chronic gastritis without bleeding; K44.9 Diaphragmatic hernia without obstruction or gangrene; E11.43 Type 2 diabetes mellitus with diabetic autonomic (poly)neuropathy; K31.84 Gastroparesis; I10 Essential (primary) hypertension; E11.65 Type 2 diabetes mellitus with hyperglycemia; R45.1 Restlessness and agitation; E78.5 Hyperlipidemia, unspecified; F17.210 Nicotine dependence, cigarettes, uncomplicated; Z87.11 Personal history of peptic ulcer disease; Z89.422 Acquired absence of other left toe(s); Z89.421 Acquired absence of other right toe(s); Z91.14 Patient's other noncompliance with medication regimen; Z90.49 Acquired absence of other specified parts of digestive tract; Z79.4 Long term (current) use of insulin; Z83.3 Family history of diabetes mellitus

== ENCOUNTER 2018-06-27 14:36 | Observation (INO) | payer MEDICARE, OTHER ==
[2018-06-27 14:37] VITALS: BMI 23.3
[2018-06-27] MEDS ORDERED: Sodium Chloride 0.9% 1,000 ML IV ONE ×2 (15:46→20:11)
--- NOTE | 2018-06-27 15:50 | C.PDOC ---
History Of Present Illness 57 y/o male,w/ PMhx of IDDM, presents to the ER complaining of epigastric abdominal pain and intractable vomiting which has been present since yesterday. Patient states that he vomits even when he just drinks water. Patient reports t hat the pain 12/26. He notes that he is persistently retching and burping. He has history of gastritis which was recently diagnosed with an endoscopy.Denies having headache, fever, and chills. Time Seen by Provider: 06/27/18 15:26 Chief Complaint (Nursing): GI Problem History Per: Patient History/Exam Limitations: no limitations Onset/Duration Of Symptoms: Days Current Symptoms Are (Timing): Still Present Severity: Moderate Past Medical History Reviewed: Historical Data, Nursing Documentation, Vital Signs Vital Signs: Last Vital Signs Temp 97.6 F 06/27/18 14:40 Pulse 103 H 06/27/18 14:40 Resp 18 06/27/18 14:40 BP 116/77 06/27/18 14:40 Pulse Ox 98 06/27/18 14:40 - Medical History PMH: Diabetes, Gastritis, Gastrointestinal Ulcer, HTN Surgical History: Appendectomy - [facility] Procedures DETACHMENT AT RIGHT 1ST TOE, LOW, OPEN APPROACH (08/20/17) EXCISION OF STOMACH, ENDO, DIAGN (05/11/18) Family History: States: No Known Family Hx - Social History Hx Alcohol Use: No Hx Substance Use: No - Immunization History Hx Tetanus Toxoid Vaccination: No Hx Influenza Vaccination: No Hx Pneumococcal Vaccination: No Review Of Systems Except As Marked, All Systems Reviewed And Found Negative. Constitutional: Negative for: Fever, Chills Gastrointestinal: Positive for: Vomiting, Abdominal Pain Genitourinary: Negative for: Dysuria, Hematuria Neurological: Negative for: Headache Physical Exam - Physical Exam Appears: Other (uncomfortable, persistenly retching) Skin: Normal Color, Warm, Dry Head: Atraumatic, Normacephalic Eye(s): bilateral: Normal Inspection Nose: Normal Oral Mucosa: Moist Neck: Supple Chest: Symmetrical Cardiovascular: Rhythm Regular Respiratory: Normal Breath Sounds, No Rales, No Rhonchi, No Wheezing Gastrointestinal/Abdominal: Soft, Tenderness (mild epigastric tenderness), No Guarding, No Rebound Neurological/Psych: Oriented x3, Normal Speech ED Course And Treatment - Laboratory Results Result Diagrams: 06/27/18 16:19 O2 Sat by Pulse Oximetry: 98 (RA) Pulse Ox Interpretation: Normal Medical Decision Making Medical Decision Making: Plan: --Labs --UA --Pepcid IV --Zofran IV --IV Fluids Updates 15:50: Case discussed with Dr. Vaughan.Patient has been admitted under the service of . Disposition Discussed With Dr.: Giovanni Vaughan Counseled Patient/Family Regarding: Studies Performed, Diagnosis - Disposition Disposition: HOSPITALIZED Disposition Time: 15:48 Condition: GUARDED - POA Present On Arrival: None - Clinical Impression Clinical Impression: Gastritis, Intractable vomiting - Scribe Statement The provider has reviewed the documentation as recorded by the Laureenibe Michael Handy Provider Attestation: All medical record entries made by the Laureenibe were at my direction and personally dictated by me. I have reviewed the chart and agree that the record accurately reflects my personal performance of the history, physical exam, medic al decision making, and the department course for this patient. I have also personally directed, reviewed, and agree with the discharge instructions and disposition. Decision To Admit - Pt Status Changed To: Hospital Disposition Of: Observation - . Bed Request Type: Regular Admitting Physician: Giovanni Vaughan Patient Diagnosis: Gastritis, Intractable vomiting
[2018-06-27] MEDS ORDERED: Sodium Chloride 0.9% 1,000 ML ONE (16:16)
[2018-06-27 16:23] LABS: BASO # 0.1 K/uL (0.0-0.2); BASO % 0.8 % (0.0-2.0); EOS # 0.1 K/uL (0.0-0.7); HEMOGLOBIN 14.2 g/dL (12.0-18.0); LYMPH # 2.6 K/uL (1.0-4.3); LYMPH % 32.8 % (20.0-40.0); MEAN CELL VOLUME 84.7 fL (80.0-94.0); MEAN CORPUSCULAR HEMOGLOBIN 28.1 pg (27.0-31.0); MEAN CORPUSCULAR HGB CONC 33.2 g/dL (33.0-37.0); MEAN PLATELET VOLUME 8.2 fL (7.2-11.7); MONO # 0.6 K/uL (0.0-0.8); MONO % 7.5 % (0.0-10.0); NEUT # 4.7 K/uL (1.8-7.0); NEUT % 57.9 % (50.0-75.0); NRBC % 0.1 % (0.0-2.0); RBC 5.06 Mil/uL (4.40-5.90); RED CELL DISTRIBUTION WIDTH 13.6 % (11.5-14.5); WHITE BLOOD COUNT 8.1 K/uL (4.8-10.8)
[2018-06-27 16:43] LABS: ALB/GLOB RATIO 1.4 (1.0-2.1); ALBUMIN 4.8 g/dL (3.5-5.0); ALT/SGPT 21 U/L (21-72); AST/SGOT 39 U/L (17-59); BLOOD UREA NITROGEN 15 mg/dL (9-20); CALCIUM 8.9 mg/dl (8.6-10.4); GFR NON-AFRICAN AMERICAN 57; LIPASE < 10 U/L (23-300)
[2018-06-27 16:45] LABS: SQUAMOUS EPITHIAL < 1 /hpf (0-5); URINE BACTERIA RARE (<OCC); URINE BILIRUBIN NEGATIVE (NEGATIVE); URINE CLARITY Clear (Clear); URINE COLOR Yellow (YELLOW); URINE GLUCOSE (UA) NORMAL (Normal); URINE LEUKOCYTE ESTERASE NEG Leu/uL (Negative); URINE PROTEIN NEGATIVE (NEGATIVE)
[2018-06-27 16:59] LABS: URINE BLOOD TRACE (NEGATIVE)
[2018-06-27 18:52] LABS: AMYLASE 110 U/L (30-110); LIPASE 12 U/L (23-300)
[2018-06-27] MEDS: (Novolin R) Insulin Human Regular 100 units/ml vial SC SCH (21:04)
[2018-06-27] MEDS: Sodium Chloride 0.9% 1,000 ML IV SCH (22:14)
--- NOTE | 2018-06-27 22:30 | CP.PCM.HP ---
Past Patient History - Infectious Disease Hx of Infectious Diseases: None - Tetanus Immunizations Tetanus Immunization: Unknown - Past Medical History & Family History Past Medical History?: Yes - Past Social History Smoking Status: Former Smoker - CARDIAC Hx Hypertension: Yes - ENDOCRINE/METABOLIC Hx Endocrine Disorders: Yes Hx Diabetes Mellitus Type 2: Yes - INTEGUMENTARY Hx Dermatological Problems: Yes Other/Comment: HX: GANGRENE RIGHT FOOT TOE(GREAT) surgery. 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) surgery - GASTROINTESTINAL Hx Gastritis: Yes - PSYCHIATRIC Hx Substance Use: No - SURGICAL HISTORY Hx Appendectomy: Yes - ANESTHESIA Hx Anesthesia: Yes Hx Anesthesia Reactions: No Hx Malignant Hyperthermia: No Meds Allergies/Adverse Reactions: Allergies Allergy/AdvReac Type Severity Reaction Status Date / Time No Known Allergies Allergy Verified 06/27/18 14:42 Results - Vital Signs Recent Vital Signs: Last Vital Signs Temp 97.2 F L 06/27/18 19:30 Pulse 91 H 06/27/18 19:30 Resp 20 06/27/18 19:30 BP 156/94 H 06/27/18 19:30 Pulse Ox 98 06/27/18 19:30 - Labs Result Diagrams: 06/27/18 16:19 06/27/18 16:19 Labs: Laboratory Results - last 24 hr 06/27/18 06/27/18 06/27/18 16:19 16:19 16:28 WBC 8.1 RBC 5.06 Hgb 14.2 Hct 42.8 MCV 84.7 MCH 28.1 MCHC 33.2 RDW 13.6 Plt Count 336 MPV 8.2 Neut % (Auto) 57.9 Lymph % (Auto) 32.8 Wharton % (Auto) 7.5 Eos % (Auto) 1.0 Baso % (Auto) 0.8 Neut # (Auto) 4.7 Lymph # (Auto) 2.6 Wharton # (Auto) 0.6 Eos # (Auto) 0.1 Baso # (Auto) 0.1 Sodium 139 Potassium 4.1 Chloride 100 Carbon Dioxide 27 Anion Gap 16 BUN 15 Creatinine 1.3 Est GFR ( Amer) > 60 Est GFR (Non-Af Amer) 57 POC Glucose (mg/dL) Random Glucose 52 L Calcium 8.9 Total Bilirubin 1.2 AST 39 ALT 21 D Alkaline Phosphatase 115 Troponin I < 0.0120 Total Protein 8.2 Albumin 4.8 Globulin 3.4 Albumin/Globulin Ratio 1.4 Amylase Lipase < 10 L Urine Color Yellow Urine Clarity Clear Urine pH 5.0 Ur Specific Holman 1.013 Urine Protein Negative Urine Glucose (UA) Normal Urine Ketones Negative Urine Blood Trace H Urine Nitrate Negative Urine Bilirubin Negative Urine Urobilinogen 2.0 Ur Leukocyte Esterase Neg Urine WBC (Auto) 2 Urine RBC (Auto) 1 Ur Squamous Epith Cells < 1 Urine Bacteria Rare 06/27/18 06/27/18 06/27/18 18:37 18:40 18:44 WBC RBC Hgb Hct MCV MCH MCHC RDW Plt Count MPV Neut % (Auto) Lymph % (Auto) Wharton % (Auto) Eos % (Auto) Baso % (Auto) Neut # (Auto) Lymph # (Auto) Wharton # (Auto) Eos # (Auto) Baso # (Auto) Sodium Potassium Chloride Carbon Dioxide Anion Gap BUN Creatinine Est GFR ( Amer) Est GFR (Non-Af Amer) POC Glucose (mg/dL) 37 L* 48 L Random Glucose Calcium Total Bilirubin AST ALT Alkaline Phosphatase Troponin I Total Protein Albumin Globulin Albumin/Globulin Ratio Amylase 110 D Lipase 12 L Urine Color Urine Clarity Urine pH Ur Specific Holman Urine Protein Urine Glucose (UA) Urine Ketones Urine Blood Urine Nitrate Urine Bilirubin Urine Urobilinogen Ur Leukocyte Esterase Urine WBC (Auto) Urine RBC (Auto) Ur Squamous Epith Cells Urine Bacteria 06/27/18 06/27/18 19:03 20:57 WBC RBC Hgb Hct MCV MCH MCHC RDW Plt Count MPV Neut % (Auto) Lymph % (Auto) Wharton % (Auto) Eos % (Auto) Baso % (Auto) Neut # (Auto) Lymph # (Auto) Wharton # (Auto) Eos # (Auto) Baso # (Auto) Sodium Potassium Chloride Carbon Dioxide Anion Gap BUN Creatinine Est GFR ( Amer) Est GFR (Non-Af Amer) POC Glucose (mg/dL) 89 201 H Random Glucose Calcium Total Bilirubin AST ALT Alkaline Phosphatase Troponin I Total Protein Albumin Globulin Albumin/Globulin Ratio Amylase Lipase Urine Color Urine Clarity Urine pH Ur Specific Holman Urine Protein Urine Glucose (UA) Urine Ketones Urine Blood Urine Nitrate Urine Bilirubin Urine Urobilinogen Ur Leukocyte Esterase Urine WBC (Auto) Urine RBC (Auto) Ur Squamous Epith Cells Urine Bacteria
[2018-06-28] MEDS ORDERED: Dextrose 50% VIAL Inj (50 ml) IV ONE (02:18)
[2018-06-28] MEDS ORDERED: Dextrose 50% SYRINGE Inj (50 ml) IV PRN (02:22)
[2018-06-28] MEDS ORDERED: Glucagon Recombinant 1 mg Inj IM PRN (02:22)
--- NOTE | 2018-06-28 05:39 | HP ---
CHIEF COMPLAINT: Persistent nausea and vomiting x1 day. HISTORY OF PRESENT ILLNESS: This is a 57-year-old -Prydeinig male, well known to me with history of type 2 diabetes, on insulin, hypertension, hyperlipidemia who is compliant with the diet, medication, and follow up. Since yesterday, he has been having persistent nausea, vomiting, and abdominal pain. Along with nausea and vomiting, he has been having a cough. He has been vomiting persistently to a point that after any kind of food particle now, the patient has clear yellow fluid in the vomitus and he is not even able to retain water. The patient had chills, rigors, and body aches. He denies any headache. He has abdominal pain 6/10, and he is retching, he is burping, and he has prior history of gastritis and he has EGD done. He denies any fever or chills. He denies any history of polyuria, polydipsia, or polyphagia. He denies any history of hematuria or pyuria. He denies any sneezing, itchy eyes, itchy nose. He denies any cough, sore throat, or running nose. He denies any joint pain, hip pain, or skin rash. PAST MEDICAL HISTORY: Type 2 diabetes, hypertension, hyperlipidemia, and gastritis. SOCIAL HISTORY: The patient denies smoking and drinking. CURRENT MEDICATION: He is on insulin, chlorpromazine p.r.n., Crestor, Protonix, and Reglan. PHYSICAL EXAMINATION: GENERAL: A middle-aged male in distress with nausea and vomiting. VITAL SIGNS: Blood pressure 156/94, pulse 91, respiratory rate 20, and temperature 97.2. SKIN: Dry. Poor turgor. HEENT: Atraumatic and normocephalic. Negative pallor. Negative jaundice. Extraocular moments are intact. NECK: Supple. No JVD. No lymph node. No thyromegaly. No carotid bruits. CHEST: Chest wall, bilateral symmetrical expansion. No tenderness. No guarding. LUNGS: Bilaterally clear. No rales. No rhonchi. CARDIOVASCULAR SYSTEM: PMI in the fifth intercostal space. S1 and S2 regular. ABDOMEN: Exaggerated bowel sounds. Epigastric tenderness. No visceromegaly and there is visible peristalsis. RECTAL: Enlarged prostate. No bleeding per rectum. EXTREMITIES: No clubbing, cyanosis, or edema. CENTRAL NERVOUS SYSTEM: Awake, alert, and oriented x3. Cranial nerves II through XII are normal. Power 5/5 x4. Plantars are downgoing. ASSESSMENT: 1. Persistent nausea and vomiting, rule out gastritis versus gastroenteritis versus peptic ulcer disease. 2. Dehydration with hypoglycemia due to poor oral intake. 3. Hypertension. 4. Electrolyte imbalance. PLAN: Admit. Detailed orders written. Seen and examined. Giovanni Vaughan MD
[2018-06-28] MEDS: (Novolin R) Insulin Human Regular 100 units/ml vial SC SCH ×4 (08:30→22:48)
[2018-06-28] MEDS: Sodium Chloride 0.9% 1,000 ML IV SCH ×2 (08:45→22:49)
--- NOTE | 2018-06-28 09:06 | RAD ---
Date of service: 06/27/2018 PROCEDURE: Radiographs of the chest and abdomen (obstructive series) HISTORY: abd pain COMPARISON: No prior. TECHNIQUE: AP radiograph of the chest, with upright and supine radiographs of the abdomen. FINDINGS: CHEST: Lungs: Clear. Cardiovascular: Normal size heart. No pulmonary vascular congestion. There is absence of aortic atherosclerotic calcification on x-ray. Pleura: No pleural fluid. No pneumothorax. Other findings: None. ABDOMEN AND PELVIS: Bowel: There is a left mid to upper quadrant abdominal minimally distended apparent small bowel loop. Other small bowel loops in this entity are normal in caliber. The colon is not distended. Moderate right sided colonic stool retention noted. No evidence of complete bowel obstruction noted. Free air: None. Bones: No destruction seen. Rightward lumbar convexity. L4-5 and L5-S1 mild facet hypertrophy. Other findings: None. IMPRESSION: No pulmonary infiltrate. Left mid to upper lung zone upper quadrant small bowel loops mildly distended. A a mild focal ileus and/or partial small-bowel obstruction is not excluded. Normal variant is also a consideration. No complete or high-grade obstruction appreciated now. Follow-up recommended. No free air noted.
[2018-06-28] MEDS: Enoxaparin 40 mg Syringe SC SCH (10:07)
[2018-06-28] MEDS ORDERED: Propofol 10 mg/ml Inj (20 ML) ONE (10:26)
[2018-06-28] MEDS: metroNIDAZOLE IV 500 mg/100 ml 500 MG/100 ML BAG IVPB SCH ×2 (12:05→19:16)
[2018-06-28 15:29] VITALS: RESP 20
--- NOTE | 2018-06-28 21:57 | CARD ---
APPROVED REPORT Date of service: 06/27/2018 EKG Measurement Heart [id number] <Conclusion> Normal sinus rhythm Normal ECG
[2018-06-28] MEDS: Sucralfate 1 gm/10 ml Oral Susp UD PO SCH (22:42)
--- NOTE | 2018-06-28 22:47 | CP.PCM.PN ---
Subjective - Subjective Subjective: dictated Objective - Vital Signs/Intake and Output Vital Signs (last 24 hours): Temp Pulse Resp BP Pulse Ox 97.9 F 67 20 150/93 H 97 06/28/18 15:00 06/28/18 15:00 06/28/18 15:00 06/28/18 15:00 06/28/18 16:30 Intake and Output: 06/28/18 06/29/18 18:59 06:59 Intake Total 450 Balance 450 - Medications Medications: Current Medications Chlorpromazine (Thorazine) 25 mg PO Q6H PRN PRN Reason: Hiccups Last Admin: 06/28/18 19:15 Dose: 25 mg Dextrose (Dextrose 50% Inj) 0 ml IV STAT PRN; Protocol PRN Reason: Hypoglycemia Protocol Dextrose (Glutose 15) 0 gm PO ONCE PRN; Protocol PRN Reason: Hypoglycemia Protocol Enoxaparin Sodium (Lovenox) 40 mg SC DAILY [facility] Last Admin: 06/28/18 10:07 Dose: Not Given Glucagon (Glucagen Diagnostic Kit) 0 mg IM STAT PRN; Protocol PRN Reason: Hypoglycemia Protocol Sodium Chloride (Sodium Chloride 0.9%) 1,000 mls @ 80 mls/hr IV .[id number] [facility] Last Admin: 06/28/18 08:45 Dose: Not Given Dextrose (Dextrose 5% In Water 1000 Ml) 1,000 mls @ 0 mls/hr IV .Q0M PRN; Protocol PRN Reason: Hypoglycemia Protocol Last Admin: 06/28/18 02:22 Dose: 100 mls/hr Metronidazole (Flagyl) 500 mg in 100 mls @ 100 mls/hr IVPB Q8H [facility]; Protocol Last Admin: 06/28/18 19:16 Dose: 100 mls/hr Insulin Human Regular (Novolin R) 0 unit SC ACHS [facility]; Protocol Last Admin: 06/28/18 17:03 Dose: 3 units Metoclopramide HCl (Reglan) 10 mg IVP ACHS [facility] Last Admin: 06/28/18 22:42 Dose: 10 mg Pantoprazole Sodium (Protonix Inj) 40 mg IVP DAILY [facility] Last Admin: 06/28/18 10:07 Dose: Not Given Rosuvastatin Calcium (Crestor) 5 mg PO HS [facility] Last Admin: 06/28/18 22:42 Dose: 5 mg Sucralfate (Carafate Oral Susp) 1 gm PO ACS [facility] Last Admin: 06/28/18 22:42 Dose: 1 gm - Labs Labs: 06/27/18 16:19 06/27/18 16:19
--- NOTE | 2018-06-29 02:19 | PN ---
DATE: 06/28/2018 SUBJECTIVE: The patient, Gume, is still having hiccup, nausea, generalized weakness. His blood sugars were low in the beginning. Now, they are coming up. He is in distress because of hiccup. He denies any fever, chills, rigor. There is abdominal pain upon hiccuping. Generalized weakness. PHYSICAL EXAMINATION: VITAL SIGNS: Blood pressure 150/93, pulse 67, respiratory rate 20, temperature 97.9. LUNGS: Clear. CVS: S1, S2 regular. ABDOMEN: Soft. Epigastric tenderness. LABORATORY DATA: WBC 8.1, hemoglobin 14.2, hematocrit 42.8, platelets 336. Chemistry: Glucose 222, 278, 159. Sodium 139, potassium 4.1, chloride 100, bicarb 27, BUN 13, creatinine 1.3. ASSESSMENT: 1. Intractable hiccup, etiology unclear. 2. Uncontrolled diabetes. 3. Hypertension. 4. Dehydration. PLAN: Continue current medication. Monitor the patient. Giovanni Vaughan MD
[2018-06-29] MEDS: metroNIDAZOLE IV 500 mg/100 ml 500 MG/100 ML BAG IVPB SCH ×3 (03:14→19:23)
[2018-06-29 08:11] LABS: BASO % 0.3 % (0.0-2.0); EOS # 0.1 K/uL (0.0-0.7); EOS % 1.9 % (0.0-4.0); HEMOGLOBIN 14.1 g/dL (12.0-18.0); LYMPH % 31.3 % (20.0-40.0); MEAN CELL VOLUME 86.4 fL (80.0-94.0); MEAN CORPUSCULAR HEMOGLOBIN 28.6 pg (27.0-31.0); MEAN CORPUSCULAR HGB CONC 33.1 g/dL (33.0-37.0); MEAN PLATELET VOLUME 8.5 fL (7.2-11.7); MONO # 0.4 K/uL (0.0-0.8); MONO % 6.9 % (0.0-10.0); NEUT # 3.8 K/uL (1.8-7.0); NEUT % 59.6 % (50.0-75.0); NRBC % 0.1 % (0.0-2.0); RBC 4.91 Mil/uL (4.40-5.90); RED CELL DISTRIBUTION WIDTH 13.5 % (11.5-14.5); WHITE BLOOD COUNT 6.4 K/uL (4.8-10.8)
[2018-06-29] MEDS: (Novolin R) Insulin Human Regular 100 units/ml vial SC SCH ×4 (08:30→21:47)
[2018-06-29] MEDS: Sucralfate 1 gm/10 ml Oral Susp UD PO SCH ×2 (08:30→21:05)
[2018-06-29 08:50] LABS: ALB/GLOB RATIO 1.4 (1.0-2.1); ALT/SGPT 24 U/L (21-72); AST/SGOT 32 U/L (17-59); BLOOD UREA NITROGEN 8 mg/dL (9-20); CALCIUM 8.5 mg/dl (8.6-10.4); GFR NON-AFRICAN AMERICAN > 60
[2018-06-29] MEDS: Enoxaparin 40 mg Syringe SC SCH (09:41)
[2018-06-29] MEDS: Sodium Chloride 0.9% 1,000 ML IV SCH ×3 (09:47→22:17)
[2018-06-29 20:25] LABS: PROTHROMBIN TIME 11.4 SECONDS (9.7-12.2)
--- NOTE | 2018-06-29 21:38 | CP.PCM.PN ---
Subjective - Subjective Subjective: dictated Objective - Vital Signs/Intake and Output Vital Signs (last 24 hours): Temp Pulse Resp BP Pulse Ox 97.6 F 88 20 144/97 H 97 06/29/18 15:59 06/29/18 15:59 06/29/18 15:59 06/29/18 15:59 06/29/18 16:00 - Medications Medications: Current Medications Chlorpromazine (Thorazine) 50 mg PO Q6H PRN PRN Reason: Hiccups Last Admin: 06/29/18 18:26 Dose: 50 mg Dextrose (Dextrose 50% Inj) 0 ml IV STAT PRN; Protocol PRN Reason: Hypoglycemia Protocol Dextrose (Glutose 15) 0 gm PO ONCE PRN; Protocol PRN Reason: Hypoglycemia Protocol Enoxaparin Sodium (Lovenox) 40 mg SC DAILY [facility] Last Admin: 06/29/18 09:41 Dose: 40 mg Famotidine (Pepcid) 20 mg PO BID [facility] Last Admin: 06/29/18 17:01 Dose: 20 mg Glucagon (Glucagen Diagnostic Kit) 0 mg IM STAT PRN; Protocol PRN Reason: Hypoglycemia Protocol Sodium Chloride (Sodium Chloride 0.9%) 1,000 mls @ 80 mls/hr IV .[id number] [facility] Last Admin: 06/29/18 14:17 Dose: 80 mls/hr Dextrose (Dextrose 5% In Water 1000 Ml) 1,000 mls @ 0 mls/hr IV .Q0M PRN; Protocol PRN Reason: Hypoglycemia Protocol Last Admin: 06/28/18 02:22 Dose: 100 mls/hr Metronidazole (Flagyl) 500 mg in 100 mls @ 100 mls/hr IVPB Q8H [facility]; Protocol Last Admin: 06/29/18 19:23 Dose: 100 mls/hr Insulin Human Regular (Novolin R) 0 unit SC ACHS [facility]; Protocol Last Admin: 06/29/18 17:01 Dose: 2 units Metoclopramide HCl (Reglan) 10 mg IVP ACHS [facility] Last Admin: 06/29/18 21:05 Dose: 10 mg Pantoprazole Sodium (Protonix Inj) 40 mg IVP DAILY [facility] Last Admin: 06/29/18 09:45 Dose: 40 mg Rosuvastatin Calcium (Crestor) 5 mg PO HS [facility] Last Admin: 06/29/18 21:05 Dose: 5 mg Sucralfate (Carafate Oral Susp) 1 gm PO ACBHS [facility] Last Admin: 06/29/18 21:05 Dose: 1 gm - Labs Labs: 06/29/18 08:04 06/29/18 08:04 PT 11.4 SECONDS (9.7-12.2) 06/29/18 20:10 INR 1.0 06/29/18 20:10 APTT 32 SECONDS (21-34) 06/29/18 20:10
--- NOTE | 2018-06-29 21:43 | PN ---
DATE: 06/29/2018 LOCATION: 750, bed B. SUBJECTIVE: This is a 57-year-old male, seen and examined in rounds early this morning, with intermittent period of dyspepsia with nausea, appears to be somewhat anxious and mildly restless complaining of insomnia before. The entire chart is reviewed including but not limited to the most recent lab and radiology study results, current and the previous medication list, current and the previous medical events. Case discussed with the staff at length. The patient is still complaining of some hiccup, and today's lab showed normal CBC with blood glucose level of 356, calcium 8.5, total bilirubin 1.21. No chest pain, palpitation or significant shortness of breath. PHYSICAL EXAMINATION: GENERAL: A 57-year-old male. VITAL SIGNS: A afebrile with pulse of 84, respiratory rate 20 to 22, blood pressure 140/90. HEENT: Showed pale dry mucoid membrane. Mildly icteric sclerae. LUNGS: Few scattered crepitation. Decreased air entry at bases. HEART: Positive S1 and S2. ABDOMEN: Soft with mild generalized tenderness. No mass or organomegaly. No rebound tenderness or guarding, but midepigastric and midabdominal tenderness. EXTREMITIES: Without significant edema, clubbing or cyanosis. NEUROLOGIC: No reported new neurological deficits, sensory or motor. IMPRESSION: 1. Re-exacerbation of peptic ulcer disease, the patient is status post upper endoscopy. 2. Known history of hypertension, poorly controlled diabetes mellitus, status post appendectomy by history. 3. On record, the gastric biopsy report did not show any clear evidence of Heliobater pylori infection. SUGGESTIONS: 1. Continue current management. 2. Cancer markers. 3. Serum lipase, amylase level. 4. The patient may need sectional abdominal and pelvic CAT scan if his symptoms persist. Further recommendation to follow. Chad Palafox MD
--- NOTE | 2018-06-30 02:06 | PN ---
DATE: 06/29/2018 SUBJECTIVE: The patient continues to have persistent cough, episodes of nausea, vomiting, epigastric pain, generalized weakness. He denies any fever, chills, or rigors. He is status post EGD with hiatal hernia and gastritis on EGD. PHYSICAL EXAMINATION: VITAL SIGNS: Blood pressure 144/97, pulse 88, respiratory rate 20, temperature 97.6. LUNGS: Clear. CARDIOVASCULAR SYSTEM: S1 and S2 are regular. ABDOMEN: Soft, nontender. Bowel sounds are positive. ASSESSMENT: 1. Persistent hiccup, nausea, vomiting, abdominal pain, rule out diabetic gastroparesis, rule out hiatal hernia and gastritis. 2. Dehydration. 3. Poorly controlled diabetes. PLAN: Increase chlorpromazine to 50 mg p.o. every 6 hours. Continue Pepcid. He is feeling much better. Monitor the patient. Giovanni Vaughan MD
[2018-06-30] MEDS: metroNIDAZOLE IV 500 mg/100 ml 500 MG/100 ML BAG IVPB SCH ×2 (03:52→11:53)
[2018-06-30] MEDS ORDERED: Simethicone 80 mg Chewtab PO ONE (03:59)
[2018-06-30] MEDS: Sodium Chloride 0.9% 1,000 ML IV SCH ×2 (04:06→11:45)
[2018-06-30] MEDS: Sucralfate 1 gm/10 ml Oral Susp UD PO SCH (06:29)
[2018-06-30 07:46] VITALS: BP 139/90; PULSE 82; TEMP 97.8; O2SAT 96
[2018-06-30 08:14] LABS: AMYLASE 80 U/L (30-110); LIPASE < 10 U/L (23-300)
[2018-06-30] MEDS: (Novolin R) Insulin Human Regular 100 units/ml vial SC SCH ×2 (08:30→11:53)
[2018-06-30] MEDS: Enoxaparin 40 mg Syringe SC SCH ×2 (09:13→09:16)
--- NOTE | 2018-06-30 14:47 | CP.PCM.PN ---
Subjective - Date & Time of Evaluation Date of Evaluation: 06/30/18 Time of Evaluation: 11:00 - Subjective Subjective: Patient seen today, states hiccups improved, denies any abdominal pain, N/V, tolerating liquid diet vss and labs reviewed -stable Objective - Vital Signs/Intake and Output Vital Signs (last 24 hours): Temp Pulse Resp BP Pulse Ox 97.8 F 82 20 139/90 96 06/30/18 07:45 06/30/18 07:45 06/30/18 07:45 06/30/18 07:45 06/30/18 07:45 Intake and Output: 06/30/18 06/30/18 06:59 18:59 Intake Total 1655 Balance 1655 - Medications Medications: Current Medications Chlorpromazine (Thorazine) 50 mg PO Q6H PRN PRN Reason: Hiccups Last Admin: 06/30/18 00:17 Dose: 50 mg Dextrose (Dextrose 50% Inj) 0 ml IV STAT PRN; Protocol PRN Reason: Hypoglycemia Protocol Dextrose (Glutose 15) 0 gm PO ONCE PRN; Protocol PRN Reason: Hypoglycemia Protocol Enoxaparin Sodium (Lovenox) 40 mg SC DAILY [facility] Last Admin: 06/30/18 09:16 Dose: Not Given Famotidine (Pepcid) 20 mg PO BID [facility] Last Admin: 06/30/18 09:13 Dose: 20 mg Glucagon (Glucagen Diagnostic Kit) 0 mg IM STAT PRN; Protocol PRN Reason: Hypoglycemia Protocol Sodium Chloride (Sodium Chloride 0.9%) 1,000 mls @ 80 mls/hr IV .[id number] [facility] Last Admin: 06/30/18 11:45 Dose: Not Given Dextrose (Dextrose 5% In Water 1000 Ml) 1,000 mls @ 0 mls/hr IV .Q0M PRN; Protocol PRN Reason: Hypoglycemia Protocol Last Admin: 06/28/18 02:22 Dose: 100 mls/hr Metronidazole (Flagyl) 500 mg in 100 mls @ 100 mls/hr IVPB Q8H [facility]; Protocol Last Admin: 06/30/18 11:53 Dose: 100 mls/hr Insulin Human Regular (Novolin R) 0 unit SC ACHS [facility]; Protocol Last Admin: 06/30/18 11:53 Dose: 5 units Metoclopramide HCl (Reglan) 10 mg IVP ACHS [facility] Last Admin: 06/30/18 11:53 Dose: 10 mg Pantoprazole Sodium (Protonix Inj) 40 mg IVP DAILY [facility] Last Admin: 06/30/18 09:13 Dose: 40 mg Rosuvastatin Calcium (Crestor) 5 mg PO HS [facility] Last Admin: 06/29/18 21:05 Dose: 5 mg Sucralfate (Carafate Oral Susp) 1 gm PO ACBHS [facility] Last Admin: 06/30/18 06:29 Dose: 1 gm - Labs Labs: 06/29/18 08:04 06/29/18 08:04 PT 11.4 SECONDS (9.7-12.2) 06/29/18 20:10 INR 1.0 06/29/18 20:10 APTT 32 SECONDS (21-34) 06/29/18 20:10 Assessment and Plan - Assessment and Plan (Free Text) Assessment: A/P 57 y/o male,w/ PMhx of IDDM, presents to the ER complaining of epigastric abdominal pain and intractable vomiting s/p EGD- patient tolerated liquid diet and diet advanced and tolerated well D/w Dr. Vaughan, cleared for discharge home today and f/u with Dr. Vaughan office in 1 week Discharge plan discussed with patient who undestands and agrees with plan RX e prescribed to pharmacy patient instructed to returns to ED if symptoms returns or worsening symptoms
--- NOTE | 2018-06-30 21:03 | PN ---
DATE: 06/30/2018 LOCATION: 570, bed B. SUBJECTIVE: This is a 57-year-old male, post upper endoscopy and biopsy. Seen and examined in the rounds. Tolerating oral intake well. No reported active bleeding, nausea or vomiting or significant change of bowel movement habit. No chest pain or palpitation. The entire chart is reviewed including but not limited to the most recent lab and radiology study results, current and the previous medication lists, current and the previous medical events as well as allergy to medication. LABORATORY DATA: Today's lab results showed blood glucose level of 369. However, the patient's CEA level is reported to be 4.1, elevated. Colonoscopy is to be considered that could be done as an outpatient, however. PHYSICAL EXAMINATION: GENERAL: A 57-year-old male. VITAL SIGNS: Afebrile with a pulse of 80, respiratory rate 18 to 20, blood pressure 144/84. HEENT: Showed pale, dry oral mucous membrane and nonicteric sclerae. LUNGS: Few scattered crepitation. Decreased air entry at bases. HEART: Positive S1 and S2. ABDOMEN: Soft with mild generalized tenderness. No mass or organomegaly. No rebound tenderness or guarding. EXTREMITIES: Without edema, clubbing or cyanosis. NEUROLOGIC: No reported new neurological deficits, sensory or motor. IMPRESSION: 1. Peptic ulcer disease. 2. Elevated carcinoembryonic antigen level, rule out lower gastrointestinal tract occult malignancy. 3. Poorly controlled diabetes mellitus with diabetic gastroparesis. 4. Known history of hypertension as well as status post appendectomy by history. SUGGESTIONS: 1. Continue current management. 2. Carafate liquid. 3. Zofran p.o. 4. Antireflux measure. 5. The patient to be followed up as outpatient for potential colonoscopy after adequate preparation due to the elevated CEA level. Chad Palafox MD
--- NOTE | 2018-06-30 21:51 | CP.PCM.DIS ---
Provider - Provider Date of Admission: 06/27/18 15:50 Attending physician: Giovanni Vaughan MD Consults: 06/27/18 15:51 Gastroenterology Consult Stat Comment: intractible vomiting Consulting Provider: Chad Bliss Consulting Physician: Chad Bliss Reason for Consult: intractible vomiting 06/27/18 19:45 Gastroenterology Consult Routine Comment: Consulting Provider: Chad Bliss Consulting Physician: Chad Bliss Reason for Consult: [facility] Course - Lab Results Lab Results: Most Recent Lab Values WBC 6.4 K/uL (4.8-10.8) 06/29/18 08:04 RBC 4.91 Mil/uL (4.40-5.90) 06/29/18 08:04 Hgb 14.1 g/dL (12.0-18.0) 06/29/18 08:04 Hct 42.4 % (35.0-51.0) 06/29/18 08:04 MCV 86.4 fL (80.0-94.0) 06/29/18 08:04 MCH 28.6 pg (27.0-31.0) 06/29/18 08:04 MCHC 33.1 g/dL (33.0-37.0) 06/29/18 08:04 RDW 13.5 % (11.5-14.5) 06/29/18 08:04 Plt Count 301 K/uL (130-400) 06/29/18 08:04 MPV 8.5 fL (7.2-11.7) 06/29/18 08:04 Neut % (Auto) 59.6 % (50.0-75.0) 06/29/18 08:04 Lymph % (Auto) 31.3 % (20.0-40.0) 06/29/18 08:04 [place] % (Auto) 6.9 % (0.0-10.0) 06/29/18 08:04 Eos % (Auto) 1.9 % (0.0-4.0) 06/29/18 08:04 Baso % (Auto) 0.3 % (0.0-2.0) 06/29/18 08:04 Neut # (Auto) 3.8 K/uL (1.8-7.0) 06/29/18 08:04 Lymph # (Auto) 2.0 K/uL (1.0-4.3) 06/29/18 08:04 [place] # (Auto) 0.4 K/uL (0.0-0.8) 06/29/18 08:04 Eos # (Auto) 0.1 K/uL (0.0-0.7) 06/29/18 08:04 Baso # (Auto) 0.0 K/uL (0.0-0.2) 06/29/18 08:04 PT 11.4 SECONDS (9.7-12.2) 06/29/18 20:10 INR 1.0 06/29/18 20:10 APTT 32 SECONDS (21-34) 06/29/18 20:10 Sodium 135 mmol/L (132-148) 06/29/18 08:04 Potassium 4.5 mmol/L (3.6-5.2) 06/29/18 08:04 Chloride 101 mmol/L (98-107) 06/29/18 08:04 Carbon Dioxide 24 mmol/L (22-30) 06/29/18 08:04 Anion Gap 15 (10-20) 06/29/18 08:04 BUN 8 mg/dL (9-20) L 06/29/18 08:04 Creatinine 1.1 mg/dL (0.8-1.5) 06/29/18 08:04 Est GFR ( Amer) > 60 06/29/18 08:04 Est GFR (Non-Af Amer) > 60 06/29/18 08:04 POC Glucose (mg/dL) 369 mg/dL (65-110) H 06/30/18 10:48 Random Glucose 296 mg/dL (75-110) H 06/29/18 08:04 Calcium 8.5 mg/dl (8.6-10.4) L 06/29/18 08:04 Total Bilirubin 1.8 mg/dL (0.2-1.3) H 06/29/18 08:04 AST 32 U/L (17-59) 06/29/18 08:04 ALT 24 U/L (21-72) 06/29/18 08:04 Alkaline Phosphatase 116 U/L (38-126) 06/29/18 08:04 Troponin I < 0.0120 ng/mL (0.00-0.120) 06/27/18 16:19 Total Protein 6.9 g/dL (6.3-8.3) 06/29/18 08:04 Albumin 4.0 g/dL (3.5-5.0) 06/29/18 08:04 Globulin 2.9 gm/dL (2.2-3.9) 06/29/18 08:04 Albumin/Globulin Ratio 1.4 (1.0-2.1) 06/29/18 08:04 Amylase 80 U/L (30-110) 06/30/18 07:37 Lipase < 10 U/L (23-300) L 06/30/18 07:37 Alpha Fetoprotein 3.7 ng/mL (0.0-7.5) 06/29/18 20:10 Carcinoembryonic Ag 4.1 ng/mL (0-3.0) H 06/29/18 20:10 CA 19-9 Antigen < 1.4 U/mL (0-37) 06/29/18 20:10 Urine Color Yellow (YELLOW) 06/27/18 16:28 Urine Clarity Clear (Clear) 06/27/18 16:28 Urine pH 5.0 (5.0-8.0) 06/27/18 16:28 Ur Specific [place] 1.013 (1.003-1.030) 06/27/18 16:28 Urine Protein Negative mg/dL (NEGATIVE) 06/27/18 16:28 Urine Glucose (UA) Normal mg/dL (Normal) 06/27/18 16:28 Urine Ketones Negative mg/dL (NEGATIVE) 06/27/18 16:28 Urine Blood Trace (NEGATIVE) H 06/27/18 16:28 Urine Nitrate Negative (NEGATIVE) 06/27/18 16:28 Urine Bilirubin Negative (NEGATIVE) 06/27/18 16:28 Urine Urobilinogen 2.0 mg/dL (0.2-1.0) 06/27/18 16:28 Ur Leukocyte Esterase Neg Lauren/uL (Negative) 06/27/18 16:28 Urine WBC (Auto) 2 /hpf (0-5) 06/27/18 16:28 Urine RBC (Auto) 1 /hpf (0-3) 06/27/18 16:28 Ur Squamous Epith Cells < 1 /hpf (0-5) 06/27/18 16:28 Urine Bacteria Rare (<OCC) 06/27/18 16:28 Discharge Plan - Discharge Medications Prescriptions: Lancing Device/Lancets [Accu-Chek Multiclix Lancet Kit] 1 each MC QID #100 kit Sucralfate [Carafate Oral Susp] 1 gm PO ACBHS #40 udc Rosuvastatin Calcium [Crestor] 5 mg PO HS #30 tab Insulin NPH Hum/Reg Insulin Hm [Humulin 70/30 Kwikpen] 10 unit SQ Q12 #5 insuln.pen Famotidine [Pepcid] 20 mg PO BID #60 tab chlorproMAZINE [Thorazine] 25 mg PO Q6H PRN #20 tab PRN Reason: Hiccups - Follow Up Plan Condition: GUARDED Disposition: HOME/ ROUTINE Instructions: Type 2 Diabetes, Diabetes Diet , Nausea and Vomiting, Adult (DC), Gastritis (DC) Additional Instructions: Please f/u with Dr. Vaughan office in 1 week Please continue medication as per med. rec tevin continue to check BS tid PLEASE EDUCATION ASSISTANT MEDICATION FROM PHARMACY ( [facility] PRESCRIBED TO PHARMACY) Referrals: Chad Bliss [Staff Provider] - Giovanni Vaughan MD [Staff Provider] -
== END 2018-06-30 15:08 | disposition home or self-care (01) ==
LOC: C.ER 14:36 → C.9E 15:50 → C.5S 18:07
PROVIDERS: ADMIT Internal Medicine; ATTEND Internal Medicine
DX: E11.43 Type 2 diabetes mellitus with diabetic autonomic (poly)neuropathy (principal); K31.84 Gastroparesis; E11.649 Type 2 diabetes mellitus with hypoglycemia without coma; E86.0 Dehydration; E11.65 Type 2 diabetes mellitus with hyperglycemia; Z79.4 Long term (current) use of insulin; I10 Essential (primary) hypertension; Z87.891 Personal history of nicotine dependence; E78.5 Hyperlipidemia, unspecified
CPT/HCPCS: 36415; 74022; 80053; 81001; 82105; 82150; 82378; 82948; 83690; 84484; 85025; 85610; 85730; 86301; 88305; 88312; 88342; 93005; 96360; 96372; 96374; 99285; C9113; G0378; J0780; J1650; J2001; J2270; J2405; J2704; J2765; J7030; J7070; Q0161

== ENCOUNTER 2018-08-17 18:40 | Inpatient (IN) | payer MEDICARE ==
[2018-08-17 18:41] VITALS: BMI 23.3
[2018-08-17] MEDS ORDERED: Sodium Chloride 0.9% 1,000 ML IV ONE ×2 (19:02→20:04)
[2018-08-17 19:25] LABS: BASO # 0.2 K/uL (0.0-0.2); BASO % 1.6 % (0.0-2.0); EOS % 0.1 % (0.0-4.0); HEMOGLOBIN 15.3 g/dL (12.0-18.0); LYMPH # 1.6 K/uL (1.0-4.3); LYMPH % 14.7 % (20.0-40.0); MEAN CELL VOLUME 84.9 fL (80.0-94.0); MEAN CORPUSCULAR HEMOGLOBIN 28.2 pg (27.0-31.0); MEAN CORPUSCULAR HGB CONC 33.2 g/dL (33.0-37.0); MEAN PLATELET VOLUME 8.2 fL (7.2-11.7); MONO # 0.7 K/uL (0.0-0.8); MONO % 6.4 % (0.0-10.0); NEUT # 8.4 K/uL (1.8-7.0); NEUT % 77.2 % (50.0-75.0); RBC 5.41 Mil/uL (4.40-5.90); RED CELL DISTRIBUTION WIDTH 13.5 % (11.5-14.5); WHITE BLOOD COUNT 10.9 K/uL (4.8-10.8)
[2018-08-17 19:37] LABS: VENOUS BLOOD GAS BASE EXCESS -6.7 mmol/L (0.0-2.0); VENOUS BLOOD GAS PCO2 39 mmHg (40-60); VENOUS BLOOD GAS PO2 35 mm/Hg (30-55)
[2018-08-17 19:41] LABS: SQUAMOUS EPITHIAL < 1 /hpf (0-5); URINE BACTERIA RARE (<OCC); URINE BILIRUBIN NEGATIVE (NEGATIVE); URINE BLOOD 1+ (NEGATIVE); URINE CLARITY Clear (Clear); URINE COLOR Yellow (YELLOW); URINE GLUCOSE (UA) 3+ mg/dL (Normal); URINE LEUKOCYTE ESTERASE NEG Leu/uL (Negative); URINE PROTEIN NEGATIVE (NEGATIVE); URINE UROBILINOGEN NORMAL mg/dL (0.2-1.0)
[2018-08-17] MEDS ORDERED: (Novolin R) Insulin Human Regular 100 units/ml vial IV ONE (19:43)
[2018-08-17 19:49] LABS: ALB/GLOB RATIO 1.6 (1.0-2.1); ALBUMIN 5.3 g/dL (3.5-5.0); ALT/SGPT 15 U/L (21-72); AST/SGOT 23 U/L (17-59); BLOOD UREA NITROGEN 51 mg/dL (9-20); GFR NON-AFRICAN AMERICAN 23; LIPASE < 10 U/L (23-300)
[2018-08-17] MEDS ORDERED: (Novolin R) Insulin Human Regular 100 units/ml vial ONE (19:57)
[2018-08-17 19:58] LABS: B-TYPE NATRIURETIC PEPTIDE 355 pg/mL (0-900)
--- NOTE | 2018-08-17 20:14 | C.PDOC ---
Time Seen by Provider: 08/17/18 18:53 Chief Complaint (Nursing): High Blood Sugar Past Medical History Vital Signs: Last Vital Signs Temp 97.8 F 08/17/18 18:55 Pulse 102 H 08/17/18 18:55 Resp 18 08/17/18 18:55 BP 159/105 H 08/17/18 18:55 Pulse Ox 100 08/17/18 18:55 - Medical History PMH: Diabetes, Gastritis, Gastrointestinal Ulcer, HTN, Hypercholesterolemia Surgical History: Appendectomy - [facility] Procedures DETACHMENT AT RIGHT 1ST TOE, LOW, OPEN APPROACH (08/20/17) EXCISION OF STOMACH, ENDO, DIAGN (05/11/18) Family History: States: Unknown Family Hx - Social History Hx Alcohol Use: Yes Hx Substance Use: No - Immunization History Hx Tetanus Toxoid Vaccination: No Hx Influenza Vaccination: No Hx Pneumococcal Vaccination: No ED Course And Treatment - Laboratory Results Result Diagrams: 08/17/18 19:21 08/17/18 19:21 Lab Results: pO2 35 mm/Hg (30-55) 08/17/18 19:34 VBG pH 7.30 (7.32-7.43) L 08/17/18 19:34 VBG pCO2 39 mmHg (40-60) L 08/17/18 19:34 VBG HCO3 18.7 mmol/L 08/17/18 19:34 VBG Total CO2 20.4 mmol/L (22-28) L 08/17/18 19:34 VBG O2 Sat (Calc) 66.2 % (40-65) H 08/17/18 19:34 VBG Base Excess -6.7 mmol/L (0.0-2.0) L 08/17/18 19:34 VBG Potassium 4.4 mmol/L (3.6-5.2) 08/17/18 19:34 Sodium 130.0 mmol/l (132-148) L 08/17/18 19:34 Chloride 87.0 mmol/L (98-107) L 08/17/18 19:34 Glucose 532 mg/dl (75-110) H* 08/17/18 19:34 Lactate 2.9 mmol/L (0.7-2.1) H 08/17/18 19:34 Crit Value Called To Maria Luisa saini rn 08/17/18 19:34 Crit Value Called By Lendl 08/17/18 19:34 Crit Value Read Back Y 08/17/18 19:34 Blood Gas Notified Time 193608/17/18 19:34 Troponin I < 0.0120 ng/mL (0.00-0.120) 08/17/18 19:21 NT-Pro-B Natriuret Pep 355 pg/mL (0-900) 08/17/18 19:21 Total Bilirubin 1.4 mg/dL (0.2-1.3) H 08/17/18 19:21 AST 23 U/L (17-59) 08/17/18 19:21 ALT 15 U/L (21-72) L D 08/17/18 19:21 Alkaline Phosphatase 155 U/L (38-126) H D 08/17/18 19:21 Total Protein 8.6 g/dL (6.3-8.3) H 08/17/18 19:21 Albumin 5.3 g/dL (3.5-5.0) H D 08/17/18 19:21 Globulin 3.4 gm/dL (2.2-3.9) 08/17/18 19:21 Albumin/Globulin Ratio 1.6 (1.0-2.1) 08/17/18 19:21 Lipase < 10 U/L (23-300) L 08/17/18 19:21 Urine Color Yellow (YELLOW) 08/17/18 19:32 Urine Clarity Clear (Clear) 08/17/18 19:32 Urine pH 5.0 (5.0-8.0) 08/17/18 19:32 Ur Specific [place] 1.021 (1.003-1.030) 08/17/18 19:32 Urine Protein Negative mg/dL (NEGATIVE) 08/17/18 19:32 Urine Glucose (UA) 3+ mg/dL (Normal) H 08/17/18 19:32 Urine Ketones 1+ mg/dL (NEGATIVE) H 08/17/18 19:32 Urine Blood 1+ (NEGATIVE) H 08/17/18 19:32 Urine Nitrate Negative (NEGATIVE) 08/17/18 19:32 Urine Bilirubin Negative (NEGATIVE) 08/17/18 19:32 Urine Urobilinogen Normal mg/dL (0.2-1.0) 08/17/18 19:32 Ur Leukocyte Esterase Neg Lauren/uL (Negative) 08/17/18 19:32 Urine WBC (Auto) 2 /hpf (0-5) 08/17/18 19:32 Urine RBC (Auto) 2 /hpf (0-3) 08/17/18 19:32 Ur Squamous Epith Cells < 1 /hpf (0-5) 08/17/18 19:32 Urine Bacteria Rare (<OCC) 08/17/18 19:32 O2 Sat by Pulse Oximetry: 100 Disposition Discussed With : Giovanni Vaughan Doctor Will See Patient In The: Hospital Counseled Patient/Family Regarding: Studies Performed, Diagnosis - Disposition Disposition: HOSPITALIZED Disposition Time: 20:14 Condition: FAIR - Clinical Impression Clinical Impression: Hyperglycemia, Renal insufficiency
--- NOTE | 2018-08-17 20:17 | C.PDOC ---
History Of Present Illness 58 year old male presents to the ED with complaints of nausea, vomiting, and malaise. Patient has a history of diabetes and takes oral and insulin medication. Patient denies fever, pain, and urinary problems. Time Seen by Provider: 08/17/18 18:53 Chief Complaint (Nursing): High Blood Sugar History Per: Patient History/Exam Limitations: no limitations Onset/Duration Of Symptoms: Days (3) Current Symptoms Are (Timing): Still Present Current Diabetic Medications: Insulin, Oral Medication Associated Infectious Symptoms: Nausea, Vomiting. denies: Dysuria, Urinary Urgency, Other (fever) Past Medical History Reviewed: Historical Data, Nursing Documentation, Vital Signs Vital Signs: Last Vital Signs Temp 97.8 F 08/17/18 18:55 Pulse 102 H 08/17/18 18:55 Resp 18 08/17/18 18:55 BP 159/105 H 08/17/18 18:55 Pulse Ox 100 08/17/18 18:55 - Medical History PMH: Diabetes, Gastritis, Gastrointestinal Ulcer, HTN, Hypercholesterolemia Surgical History: Appendectomy - [facility] Procedures DETACHMENT AT RIGHT 1ST TOE, LOW, OPEN APPROACH (08/20/17) EXCISION OF STOMACH, ENDO, DIAGN (05/11/18) Family History: States: Unknown Family Hx - Social History Hx Alcohol Use: Yes Hx Substance Use: No - Immunization History Hx Tetanus Toxoid Vaccination: No Hx Influenza Vaccination: No Hx Pneumococcal Vaccination: No Review Of Systems Constitutional: Positive for: Malaise. Negative for: Fever Cardiovascular: Negative for: Chest Pain Respiratory: Negative for: Shortness of Breath Gastrointestinal: Positive for: Nausea, Vomiting. Negative for: Abdominal Pain Musculoskeletal: Negative for: Back Pain Neurological: Negative for: Weakness, Numbness, Dizziness Physical Exam - Physical Exam Appears: Non-toxic, No Acute Distress Skin: Normal Color, Warm, Dry Head: Atraumatic, Normacephalic Eye(s): bilateral: Normal Inspection, PERRL, EOMI Oral Mucosa: Dry, Other (dehydrated) Neck: Normal, Supple Chest: Symmetrical, No Deformity Cardiovascular: Rhythm Regular, No Murmur Respiratory: Normal Breath Sounds, No Decreased Breath Sounds, No Accessory Muscle Use Gastrointestinal/Abdominal: Soft, No Tenderness Extremity: Capillary Refill (<2 seconds) Extremity: Bilateral: Atraumatic, Normal Color And Temperature Pulses: Left Radial: Normal, Right Radial: Normal Neurological/Psych: Oriented x3, Normal Speech, Normal Cognition Gait: Steady ED Course And Treatment - Laboratory Results Result Diagrams: 08/17/18 19:21 08/17/18 19:21 Lab Results: pO2 35 mm/Hg (30-55) 08/17/18 19:34 VBG pH 7.30 (7.32-7.43) L 08/17/18 19:34 VBG pCO2 39 mmHg (40-60) L 08/17/18 19:34 VBG HCO3 18.7 mmol/L 08/17/18 19:34 VBG Total CO2 20.4 mmol/L (22-28) L 08/17/18 19:34 VBG O2 Sat (Calc) 66.2 % (40-65) H 08/17/18 19:34 VBG Base Excess -6.7 mmol/L (0.0-2.0) L 08/17/18 19:34 VBG Potassium 4.4 mmol/L (3.6-5.2) 08/17/18 19:34 Sodium 130.0 mmol/l (132-148) L 08/17/18 19:34 Chloride 87.0 mmol/L (98-107) L 08/17/18 19:34 Glucose 532 mg/dl (75-110) H* 08/17/18 19:34 Lactate 2.9 mmol/L (0.7-2.1) H 08/17/18 19:34 Crit Value Called To Maria Luisa saini rn 08/17/18 19:34 Crit Value Called By Bailey 08/17/18 19:34 Crit Value Read Back Y 08/17/18 19:34 Blood Gas Notified Time 193608/17/18 19:34 Troponin I < 0.0120 ng/mL (0.00-0.120) 08/17/18 19:21 NT-Pro-B Natriuret Pep 355 pg/mL (0-900) 08/17/18 19:21 Total Bilirubin 1.4 mg/dL (0.2-1.3) H 08/17/18 19:21 AST 23 U/L (17-59) 08/17/18 19:21 ALT 15 U/L (21-72) L D 08/17/18 19:21 Alkaline Phosphatase 155 U/L (38-126) H D 08/17/18 19:21 Total Protein 8.6 g/dL (6.3-8.3) H 08/17/18 19:21 Albumin 5.3 g/dL (3.5-5.0) H D 08/17/18 19:21 Globulin 3.4 gm/dL (2.2-3.9) 08/17/18 19:21 Albumin/Globulin Ratio 1.6 (1.0-2.1) 08/17/18 19:21 Lipase < 10 U/L (23-300) L 08/17/18 19:21 Urine Color Yellow (YELLOW) 08/17/18 19:32 Urine Clarity Clear (Clear) 08/17/18 19:32 Urine pH 5.0 (5.0-8.0) 08/17/18 19:32 Ur Specific [place] 1.021 (1.003-1.030) 08/17/18 19:32 Urine Protein Negative mg/dL (NEGATIVE) 08/17/18 19:32 Urine Glucose (UA) 3+ mg/dL (Normal) H 08/17/18 19:32 Urine Ketones 1+ mg/dL (NEGATIVE) H 08/17/18 19:32 Urine Blood 1+ (NEGATIVE) H 08/17/18 19:32 Urine Nitrate Negative (NEGATIVE) 08/17/18 19:32 Urine Bilirubin Negative (NEGATIVE) 08/17/18 19:32 Urine Urobilinogen Normal mg/dL (0.2-1.0) 08/17/18 19:32 Ur Leukocyte Esterase Neg Lauren/uL (Negative) 08/17/18 19:32 Urine WBC (Auto) 2 /hpf (0-5) 08/17/18 19:32 Urine RBC (Auto) 2 /hpf (0-3) 08/17/18 19:32 Ur Squamous Epith Cells < 1 /hpf (0-5) 08/17/18 19:32 Urine Bacteria Rare (<OCC) 08/17/18 19:32 ECG: Interpreted By Me ECG Rhythm: Sinus Rhythm ECG Interpretation: Normal Interpretation Of ECG: Normal intervals, normal axis, no ST/T wave abnormalities. Rate From EC O2 Sat by Pulse Oximetry: 100 (RA) Pulse Ox Interpretation: Normal Medical Decision Making Medical Decision Making: Impression: Hyperglycemia and renal insufficiency. Plan: Labs ordered with B-type natruitic peptide, troponin, and lipase. EKG and Chest one view ordered. Insulin IV, Pepcid IVP, NaCl IV, and Zofran IVP given to patient Disposition Discussed With : Giovanni Vaughan Doctor Will See Patient In The: Hospital Counseled Patient/Family Regarding: Studies Performed, Diagnosis - Disposition Disposition: HOSPITALIZED Disposition Time: 20:14 Condition: FAIR - POA Present On Arrival: None - Clinical Impression Clinical Impression: Hyperglycemia, Renal insufficiency - Scribe Statement The provider has reviewed the documentation as recorded by the Scribe (Imelda Davis) All medical record entries made by the Scribe were at my direction and personally dictated by me. I have reviewed the chart and agree that the record accurately reflects my personal performance of the history, physical exam, medical decision making, and the department course for this patient. I have also personally directed, reviewed, and agree with the discharge instructions and disposition.
[2018-08-17] MEDS: (Novolin R) Insulin Human Regular 100 units/ml vial SC SCH (22:11)
[2018-08-17] MEDS: Sodium Chloride 0.9% 1,000 ML IV SCH (22:26)
[2018-08-17] MEDS: (Novolin 70/30) NPH/Regular 70/30 Units/ml 10 ml vial SC SCH (22:28)
[2018-08-18] MEDS: Sodium Chloride 0.9% 1,000 ML IV SCH ×3 (05:27→19:11)
[2018-08-18] MEDS: (Novolin R) Insulin Human Regular 100 units/ml vial SC SCH ×4 (07:30→21:47)
[2018-08-18 07:31] LABS: HEMOGLOBIN 14.4 g/dL (12.0-18.0); MEAN CELL VOLUME 85.1 fL (80.0-94.0); MEAN CORPUSCULAR HEMOGLOBIN 28.3 pg (27.0-31.0); MEAN CORPUSCULAR HGB CONC 33.3 g/dL (33.0-37.0); MEAN PLATELET VOLUME 8.3 fL (7.2-11.7); RBC 5.07 Mil/uL (4.40-5.90); RED CELL DISTRIBUTION WIDTH 13.3 % (11.5-14.5); WHITE BLOOD COUNT 10.3 K/uL (4.8-10.8)
[2018-08-18] MEDS ORDERED: Potassium Chloride 20 mEq ER Tab PO ONE (10:00)
[2018-08-18] MEDS: (Novolin 70/30) NPH/Regular 70/30 Units/ml 10 ml vial SC SCH ×2 (10:44→21:59)
--- NOTE | 2018-08-18 11:18 | RAD ---
HISTORY: SOB COMPARISON: Chest x-ray performed 05/09/18 TECHNIQUE: Chest, one view. FINDINGS: LUNGS: No focal consolidation. Please note that chest x-ray has limited sensitivity for the detection of pulmonary masses. PLEURA: No significant pleural effusion identified. No definite pneumothorax . CARDIOVASCULAR: Heart size appears within normal limits. Atherosclerotic calcifications present. OSSEOUS STRUCTURES: No acute osseous abnormality identified. VISUALIZED UPPER ABDOMEN: Unremarkable. OTHER FINDINGS: None. IMPRESSION: No focal consolidation.
[2018-08-18] MEDS: Potassium Chloride 20 mEq/15 ml LIQ UD PO SCH (14:04)
--- NOTE | 2018-08-18 21:06 | CP.PCM.HP ---
Present on Admission - Present on Admission Any Indicators Present on Admission: Yes History of Uncontrolled Diabetes: Yes Past Patient History - Infectious Disease Hx of Infectious Diseases: None - Tetanus Immunizations Tetanus Immunization: Unknown - Past Medical History & Family History Past Medical History?: Yes - Past Social History Smoking Status: Former Smoker - CARDIAC Hx Cardiac Disorders: Yes Hx Hypercholesterolemia: Yes Hx Hypertension: Yes - PULMONARY Hx Respiratory Disorders: No - NEUROLOGICAL Hx Neurological Disorder: No - HEENT Hx HEENT Problems: No - RENAL Hx Chronic Kidney Disease: No - ENDOCRINE/METABOLIC Hx Endocrine Disorders: Yes Hx Diabetes Mellitus Type 2: Yes - HEMATOLOGICAL/ONCOLOGICAL Hx Blood Disorders: No - INTEGUMENTARY Hx Dermatological Problems: Yes Other/Comment: HX: GANGRENE RIGHT FOOT TOE(GREAT) surgery. 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) surgery - MUSCULOSKELETAL/RHEUMATOLOGICAL Hx Musculoskeletal Disorders: No Hx Falls: No - GASTROINTESTINAL Hx Gastrointestinal Disorders: Yes Hx Gastritis: Yes - GENITOURINARY/GYNECOLOGICAL Hx Genitourinary Disorders: No - PSYCHIATRIC Hx Psychophysiologic Disorder: No Hx Substance Use: No - SURGICAL HISTORY Hx Surgeries: Yes Hx Amputation: Yes Hx Appendectomy: Yes (right 2nd and 3rd toes partially amputated ,and Big toe) Other/Comment: left big toe had some bone removed 7yrs ago - ANESTHESIA Hx Anesthesia: Yes Hx Anesthesia Reactions: No Hx Malignant Hyperthermia: No Meds Allergies/Adverse Reactions: Allergies Allergy/AdvReac Type Severity Reaction Status Date / Time No Known Allergies Allergy Verified 08/17/18 18:53 Results - Vital Signs Recent Vital Signs: Last Vital Signs Temp 97.5 F L 08/18/18 15:00 Pulse 88 08/18/18 15:00 Resp 20 08/18/18 15:00 BP 146/100 H 08/18/18 15:00 Pulse Ox 97 08/18/18 15:00 - Labs Result Diagrams: 08/18/18 07:18 08/18/18 07:18 Labs: Laboratory Results - last 24 hr 08/17/18 08/17/18 08/18/18 18:54 19:21 06:51 WBC RBC Hgb Hct MCV MCH MCHC RDW Plt Count MPV Sodium Potassium Chloride Carbon Dioxide Anion Gap BUN Creatinine Est GFR ( Amer) Est GFR (Non-Af Amer) POC Glucose (mg/dL) > 500 H* 23 L* Random Glucose Hemoglobin A1c 9.2 H Lactic Acid Calcium 08/18/18 08/18/18 08/18/18 06:53 07:17 07:18 WBC RBC Hgb Hct MCV MCH MCHC RDW Plt Count MPV Sodium 129 L Potassium 3.2 L Chloride 91 L Carbon Dioxide 22 Anion Gap 18 BUN 36 H Creatinine 1.6 H Est GFR ( Amer) 54 Est GFR (Non-Af Amer) 45 POC Glucose (mg/dL) 39 L 81 Random Glucose 56 L D Hemoglobin A1c Lactic Acid Calcium 8.0 L 08/18/18 08/18/18 08/18/18 07:18 10:53 11:06 WBC 10.3 RBC 5.07 Hgb 14.4 Hct 43.2 MCV 85.1 MCH 28.3 MCHC 33.3 RDW 13.3 Plt Count 382 MPV 8.3 Sodium Potassium Chloride Carbon Dioxide Anion Gap BUN Creatinine Est GFR ( Amer) Est GFR (Non-Af Amer) POC Glucose (mg/dL) 192 H Random Glucose Hemoglobin A1c Lactic Acid 1.2 Calcium 08/18/18 08/18/18 11:06 17:11 WBC RBC Hgb Hct MCV MCH MCHC RDW Plt Count MPV Sodium Potassium Chloride Carbon Dioxide Anion Gap BUN Creatinine Est GFR ( Amer) Est GFR (Non-Af Amer) POC Glucose (mg/dL) 198 H Random Glucose Hemoglobin A1c 9.3 H Lactic Acid Calcium
[2018-08-19] MEDS: Sodium Chloride 0.9% 1,000 ML IV SCH ×5 (00:38→22:01)
--- NOTE | 2018-08-19 04:56 | HP ---
CHIEF COMPLAINT: Generalize weakness, nausea, vomiting x2 days. HISTORY OF PRESENT ILLNESS: This is a 58-year-old male, well known to me with noncompliance. He has type 2 diabetes, on insulin. He does not take any medicines regularly, and he does not follow. He also has some kidney disease. The patient has not been taking his medications, and he has been getting sick over last three days with nausea, vomiting, abdominal pain, generalized weakness, polyuria, polydipsia, polyphagia, tiredness, anorexia, malaise and fatigue. Because of nausea and vomiting, he cannot tolerate any kind of food. He is constantly vomiting and vomitus is yellow and contains food particles associated with retching. It is nonprojectile. The patient denies any fever or chills. He denies any dysuria, hematuria, or pyuria. He denies any cough, sore throat, or runny nose. He denies any history of diarrhea. The patient denied any joint pain. He denies any chest pain or back pain. He has frequency of urination. ALLERGIES: UNKNOWN ALLERGIES. CURRENT MEDICATIONS: He is on Humulin 70/30, Pepcid, Thorazine, Carafate, Crestor. SOCIAL HISTORY: He drinks socially, nonsmoker. PHYSICAL EXAMINATION: GENERAL: Middle aged male. He is weak and in distress because of nausea and vomiting. VITAL SIGNS: Blood pressure 146/100, pulse 88, respiratory rate 20, temperature 97.5. SKIN: Dry. Poor turgor. HEENT: Atraumatic and normocephalic. Negative pallor. Negative jaundice. Extraocular movements are intact. NECK: Supple. No JVD. No lymph nodes. No thyromegaly. CHEST WALL: Bilateral symmetrical expansion. No masses. LUNGS: Clear. No rales. No rhonchi. CARDIOVASCULAR SYSTEM: PMI not localized. S1 and S2, regular. No heave noted. ABDOMEN: Soft, nontender. Bowel sounds are exaggerated. RECTAL: No masses. No bleeding. EXTREMITIES: No clubbing, cyanosis, or edema. CENTRAL NERVOUS SYSTEM: Awake, alert, and oriented x3. Cranial nerves II through XII are normal. Power 5/5 x4. Plantars are downgoing. No signs of cerebellar disease or meningeal irritation. ASSESSMENT: 1. Dehydration. 2. Poorly controlled diabetes due to noncompliant with metabolic acidosis and likely to be diabetic ketoacidosis. 3. Hypokalemia. 4. Diabetic gastroparesis. PLAN: Admit. Detailed orders are written. The patient has been seen and examined. Giovanni Vaughan MD
[2018-08-19 07:47] LABS: BLOOD UREA NITROGEN 14 mg/dL (9-20); CALCIUM 8.1 mg/dl (8.6-10.4); GFR NON-AFRICAN AMERICAN > 60
[2018-08-19] MEDS: (Novolin R) Insulin Human Regular 100 units/ml vial SC SCH ×4 (08:00→22:00)
[2018-08-19] MEDS ORDERED: Pneumococcal 23-Valent Vaccine IM ONE (10:00)
[2018-08-19 10:12] LABS: ALB/GLOB RATIO 1.4 (1.0-2.1); ALBUMIN 4.3 g/dL (3.5-5.0); ALT/SGPT 18 U/L (21-72); AMYLASE 87 U/L (30-110); AST/SGOT 50 U/L (17-59); BILIRUBIN,DIRECT 0.7 mg/dL (0.0-0.4); LIPASE 13 U/L (23-300)
[2018-08-19] MEDS: Potassium Chloride 20 mEq/15 ml LIQ UD PO SCH (10:43)
[2018-08-19] MEDS: (Novolin 70/30) NPH/Regular 70/30 Units/ml 10 ml vial SC SCH ×2 (10:48→22:00)
--- NOTE | 2018-08-19 12:36 | CP.PCM.PN ---
Subjective - Date & Time of Evaluation Date of Evaluation: 08/19/18 Time of Evaluation: 10:20 - Subjective Subjective: dictated Objective - Vital Signs/Intake and Output Vital Signs (last 24 hours): Temp Pulse Resp BP Pulse Ox 97.9 F 85 20 156/92 H 96 08/18/18 23:00 08/18/18 23:00 08/18/18 23:00 08/18/18 23:00 08/18/18 23:00 Intake and Output: 08/19/18 08/19/18 06:59 18:59 Intake Total 2880 Output Total 1000 Balance 1880 - Medications Medications: Current Medications Heparin Sodium (Porcine) (Heparin) 5,000 units SC Q8 [facility] Last Admin: 08/19/18 05:20 Dose: Not Given Sodium Chloride (Sodium Chloride 0.9%) 1,000 mls @ 150 mls/hr IV .Q6H40M [facility] Last Admin: 08/19/18 08:02 Dose: Not Given Influenza Virus Vaccine (Flucelvax Quad 0449-6351 Syr) 60 mcg IM .ONCE ONE Stop: 08/19/18 14:01 Insulin Human Isoph/Insulin Regular (Novolin 70/30 (70/30 Units/Ml) 10 Ml) 10 units SC Q12 [facility] Last Admin: 08/19/18 10:48 Dose: 10 units Insulin Human Regular (Novolin R) 0 unit SC [facility]; Protocol Last Admin: 08/19/18 08:00 Dose: 2 units Metoclopramide HCl (Reglan) 10 mg IVP [facility] Last Admin: 08/19/18 07:00 Dose: Not Given Pantoprazole Sodium (Protonix Inj) 40 mg IVP DAILY [facility] Last Admin: 08/19/18 10:43 Dose: 40 mg Potassium Chloride (Potassium Chloride Oral Soln) 20 meq PO DAILY [facility] Stop: 08/20/18 14:01 Last Admin: 08/19/18 10:43 Dose: 20 meq Rosuvastatin Calcium (Crestor) 5 mg PO HS [facility] Last Admin: 08/18/18 21:58 Dose: 5 mg - Labs Labs: 08/18/18 07:18 08/19/18 06:51
--- NOTE | 2018-08-19 13:18 | CP.PCM.CON ---
History of Present Illness - History of Present Illness History of Present Illness: GI Consult Note for Dr. Bliss HPI: 58 y/o male with PMHx of DM presented to the ED 2 days ago for nausea and vomiting. GI consulted for diabetic gastroparesis. Patient seen and examined at bedside this morning. Patient was vomiting clear fluid in the bin on his bed. Patient states he has been vomiting for 6 months. Per PMD notes, Dr. Vaughan, patient has poor compliance and is to be on insulin for his DM. Patient admits to recently not being complaint with medication and does not regularly check his blood glucose. Per family at bedside, patient thinks he has no need to check blood glucose regularly and when it is very high at an unreadable number, patient has nausea and vomiting. Patient was later vomiting green and with food bits after eating a few bites of spinach wrap for lunch before NPO placed. Patient's last BM was earlier today, prior to that 2 days ago. BM was unremarkable, soft and well formed without blood. Patient denies fever, chills, sweats, chest pain, palpitations, SOB. GI history: Apr 2018 Dr. Padilla endoscopy: diffuse mild inflammation Jun 2018 Dr. 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 SocHx: former smoker Meds: humulin 70/30, thorazine, carafate, pepcid, crestor Allergies: NKDA Past Patient History - Infectious Disease Hx of Infectious Diseases: None - Tetanus Immunizations Tetanus Immunization: Unknown - Past Medical History & Family History Past Medical History?: Yes - Past Social History Smoking Status: Former Smoker - CARDIAC Hx Cardiac Disorders: Yes Hx Hypercholesterolemia: Yes Hx Hypertension: Yes - PULMONARY Hx Respiratory Disorders: No - NEUROLOGICAL Hx Neurological Disorder: No - HEENT Hx HEENT Problems: No - RENAL Hx Chronic Kidney Disease: No - ENDOCRINE/METABOLIC Hx Endocrine Disorders: Yes Hx Diabetes Mellitus Type 2: Yes - HEMATOLOGICAL/ONCOLOGICAL Hx Blood Disorders: No - INTEGUMENTARY Hx Dermatological Problems: Yes Other/Comment: HX: GANGRENE RIGHT FOOT TOE(GREAT) surgery. 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) surgery - MUSCULOSKELETAL/RHEUMATOLOGICAL Hx Musculoskeletal Disorders: No Hx Falls: No - GASTROINTESTINAL Hx Gastrointestinal Disorders: Yes Hx Gastritis: Yes - GENITOURINARY/GYNECOLOGICAL Hx Genitourinary Disorders: No - PSYCHIATRIC Hx Psychophysiologic Disorder: No Hx Substance Use: No - SURGICAL HISTORY Hx Surgeries: Yes Hx Amputation: Yes Hx Appendectomy: Yes (right 2nd and 3rd toes partially amputated ,and Big toe) Other/Comment: left big toe had some bone removed 7yrs ago - ANESTHESIA Hx Anesthesia: Yes Hx Anesthesia Reactions: No Hx Malignant Hyperthermia: No Meds Allergies/Adverse Reactions: Allergies Allergy/AdvReac Type Severity Reaction Status Date / Time No Known Allergies Allergy Verified 08/17/18 18:53 - Medications Medications: Current Medications Heparin Sodium (Porcine) (Heparin) 5,000 units SC Q8 [facility] Last Admin: 08/19/18 05:20 Dose: Not Given Sodium Chloride (Sodium Chloride 0.9%) 1,000 mls @ 150 mls/hr IV .Q6H40M [facility] Last Admin: 08/19/18 08:02 Dose: Not Given Piperacillin Sod/Tazobactam Sod (Zosyn 3.375 Gm Iv Premix) 3.375 gm in 50 mls @ 100 mls/hr IVPB Q6H [facility]; Protocol Influenza Virus Vaccine (Flucelvax Quad [id number] Syr) 60 mcg IM .ONCE ONE Stop: 08/19/18 14:01 Insulin Human Isoph/Insulin Regular (Novolin 70/30 (70/30 Units/Ml) 10 Ml) 10 units SC Q12 [facility] Last Admin: 08/19/18 10:48 Dose: 10 units Insulin Human Regular (Novolin R) 0 unit SC [facility]; Protocol Last Admin: 08/19/18 12:35 Dose: 4 units Metoclopramide HCl (Reglan) 10 mg IVP [facility] Last Admin: 08/19/18 12:34 Dose: 10 mg Pantoprazole Sodium (Protonix Inj) 40 mg IVP DAILY [facility] Last Admin: 08/19/18 10:43 Dose: 40 mg Potassium Chloride (Potassium Chloride Oral Soln) 20 meq PO DAILY [facility] Stop: 08/20/18 14:01 Last Admin: 08/19/18 10:43 Dose: 20 meq Rosuvastatin Calcium (Crestor) 5 mg PO HS [facility] Last Admin: 08/18/18 21:58 Dose: 5 mg Physical Exam - Constitutional Appears: Agitated (actively vomiting clear fluids) - Head Exam Head Exam: ATRAUMATIC, NORMAL INSPECTION - Eye Exam Eye Exam: EOMI, Normal appearance - Neck Exam Neck exam: Positive for: Normal Inspection - Respiratory Exam Respiratory Exam: Clear to Auscultation Bilateral, NORMAL BREATHING PATTERN - Cardiovascular Exam Cardiovascular Exam: REGULAR RHYTHM - GI/Abdominal Exam GI & Abdominal Exam: Normal Bowel Sounds, Soft. absent: Tenderness - Extremities Exam Extremities exam: Negative for: normal inspection Additional comments: right foot partial amputation of first and third toes, full amputation of second toe. Right foot also wrapped w/ dressing. See [employer] notes. - Neurological Exam Neurological exam: Alert, Oriented x3 - Psychiatric Exam Psychiatric exam: Agitated - Skin Skin Exam: Dry, Intact, Normal Color, Warm Results - Vital Signs Recent Vital Signs: Last Vital Signs Temp 97.9 F 08/18/18 23:00 Pulse 85 08/18/18 23:00 Resp 20 08/18/18 23:00 BP 156/92 H 08/18/18 23:00 Pulse Ox 96 08/18/18 23:00 - Labs Result Diagrams: 08/18/18 07:18 08/19/18 06:51 Labs: Laboratory Results - last 24 hr 08/18/18 08/18/18 08/19/18 17:11 21:16 02:05 Sodium Potassium Chloride Carbon Dioxide Anion Gap BUN Creatinine Est GFR ( Amer) Est GFR (Non-Af Amer) POC Glucose (mg/dL) 198 H 256 H 240 H Random Glucose Calcium Total Bilirubin Direct Bilirubin AST ALT Alkaline Phosphatase Total Protein Albumin Globulin Albumin/Globulin Ratio Amylase Lipase 08/19/18 08/19/18 08/19/18 06:25 06:51 11:47 Sodium 126 L Potassium 4.1 Chloride 90 L Carbon Dioxide 23 Anion Gap 17 BUN 14 Creatinine 1.0 Est GFR ( Amer) > 60 Est GFR (Non-Af Amer) > 60 POC Glucose (mg/dL) 267 H 290 H Random Glucose 237 H D Calcium 8.1 L Total Bilirubin 1.8 H Direct Bilirubin 0.7 H AST 50 ALT 18 L Alkaline Phosphatase 124 Total Protein 7.5 Albumin 4.3 Globulin 3.1 Albumin/Globulin Ratio 1.4 Amylase 87 Lipase 13 L Assessment & Plan - Assessment and Plan (Free Text) Assessment: 58 y/o male with PMHx of DM presented to the ED 2 days ago for nausea and vomiting. GI consulted for diabetic gastroparesis. Diabetic gastroparesis -Patient w/ intractable vomiting and nausea and previously seen by Dr. Bliss last Jun 2018 with the same symptoms -NPO -increased reglan dose to 15 mg IVP q6h -NS 125cc/h for 24h, then 100cc/h -Lipase, amylase wnl -f/u lipase, amylase, and CA 19-9 -abdominal US ordered, f/u w/ radiology report Hx of gastric ulcers -seen previously -continue with IV PPI case discussed with Dr. Izaiah Duque PGY1
[2018-08-19] MEDS ORDERED: Influenza Vaccine 60 mcg/0.5 mL SYR (4YR UP) IM ONE (14:00)
[2018-08-19] MEDS: Piperacill/Tazo 3.375gm in Dex 3.375 GM/50 ML BAG IVPB SCH ×2 (14:53→19:39)
--- NOTE | 2018-08-19 16:24 | PN ---
DATE: 08/19/2018 SUBJECTIVE: The patient, Nikolas Dunaway, has intractable nausea, vomiting, generalized weakness. He is afebrile. No shortness of breath. The patient has a wound on his right foot on the medial aspect and it looks necrotic and purulent. PHYSICAL EXAMINATION: VITAL SIGNS: Blood pressure is 156/92, pulse 55, respiratory rate 20, temperature 98.9. LUNGS: Clear. ABDOMEN: Positive epigastric tenderness, soft. Bowel sounds are exaggerated. CENTRAL NERVOUS SYSTEM: Awake, alert, oriented x3. ASSESSMENT: 1. Intractable nausea, vomiting, rule out diabetic gastroparesis versus alcohol-induced gastritis versus pancreatitis. 2. Uncontrolled diabetes, noncompliant. 3. Hyponatremia due to dehydration. 4. Hypertension. 5. Diabetic foot ulcer. PLAN: Continue current medications. Accu-Checks, sliding scale. Podiatry eval. Monitor the patient. Giovanni Vaughan MD
--- NOTE | 2018-08-19 22:19 | CP.PCM.CON ---
History of Present Illness - History of Present Illness History of Present Illness: Podiatry Progress Note for Dr. Lamb 58M seen at bedside for right foot ulceration that he says he first noticed in the shower several days ago when it began as a lysed blister. Patient denies any erythema, malodor, drainage or other clinical signs of infection. He is AAO x 3 and NAD, resting comfortably in bed. Denies any further pedal complaints. Denies any recent N/V/F/C/CP/SOB/D Review of Systems - Review of Systems All systems: reviewed and no additional remarkable complaints except Review of Systems: as per HPI Past Patient History - Infectious Disease Hx of Infectious Diseases: None - Tetanus Immunizations Tetanus Immunization: Unknown - Past Medical History & Family History Past Medical History?: Yes - Past Social History Smoking Status: Former Smoker - CARDIAC Hx Hypercholesterolemia: Yes Hx Hypertension: Yes - PULMONARY Hx Respiratory Disorders: No - NEUROLOGICAL Hx Neurological Disorder: No - HEENT Hx HEENT Problems: No - RENAL Hx Chronic Kidney Disease: No - ENDOCRINE/METABOLIC Hx Diabetes Mellitus Type 2: Yes - HEMATOLOGICAL/ONCOLOGICAL Hx Blood Disorders: No - INTEGUMENTARY Hx Dermatological Problems: Yes Other/Comment: HX: GANGRENE RIGHT FOOT TOE(GREAT) surgery. 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) surgery - MUSCULOSKELETAL/RHEUMATOLOGICAL Hx Musculoskeletal Disorders: No Hx Falls: No - GASTROINTESTINAL Hx Gastrointestinal Disorders: Yes Hx Gastritis: Yes - GENITOURINARY/GYNECOLOGICAL Hx Genitourinary Disorders: No - PSYCHIATRIC Hx Psychophysiologic Disorder: No Hx Substance Use: No - SURGICAL HISTORY Hx Surgeries: Yes Hx Amputation: Yes Hx Appendectomy: Yes (right 2nd and 3rd toes partially amputated ,and Big toe) Other/Comment: left big toe had some bone removed 7yrs ago - ANESTHESIA Hx Anesthesia: Yes Hx Anesthesia Reactions: No Hx Malignant Hyperthermia: No Meds Allergies/Adverse Reactions: Allergies Allergy/AdvReac Type Severity Reaction Status Date / Time No Known Allergies Allergy Verified 08/17/18 18:53 - Medications Medications: Current Medications Heparin Sodium (Porcine) (Heparin) 5,000 units SC Q8 [facility] Last Admin: 08/19/18 21:59 Dose: Not Given Piperacillin Sod/Tazobactam Sod (Zosyn 3.375 Gm Iv Premix) 3.375 gm in 50 mls @ 100 mls/hr IVPB Q6H [facility]; Protocol Last Admin: 08/19/18 19:39 Dose: 100 mls/hr Sodium Chloride (Sodium Chloride 0.9%) 1,000 mls @ 125 mls/hr IV .Q8H [facility] Stop: 08/20/18 13:47 Last Admin: 08/19/18 22:01 Dose: Not Given Sodium Chloride (Sodium Chloride 0.9%) 1,000 mls @ 100 mls/hr IV .Q10H [facility] Stop: 08/21/18 14:00 Insulin Human Isoph/Insulin Regular (Novolin 70/30 (70/30 Units/Ml) 10 Ml) 10 units SC Q12 [facility] Last Admin: 08/19/18 22:00 Dose: Not Given Insulin Human Regular (Novolin R) 0 unit SC ACHS [facility]; Protocol Last Admin: 08/19/18 22:00 Dose: Not Given Metoclopramide HCl (Reglan) 15 mg IVP Q6H [facility] Last Admin: 08/19/18 21:00 Dose: 15 mg Pantoprazole Sodium (Protonix Inj) 40 mg IVP DAILY [facility] Last Admin: 08/19/18 10:43 Dose: 40 mg Potassium Chloride (Potassium Chloride Oral Soln) 20 meq PO DAILY [facility] Stop: 08/20/18 14:01 Last Admin: 08/19/18 10:43 Dose: 20 meq Rosuvastatin Calcium (Crestor) 5 mg PO HS [facility] Last Admin: 08/19/18 21:59 Dose: 5 mg Physical Exam - Constitutional Appears: Well, Non-toxic, No Acute Distress - Extremities Exam Additional comments: RLE focused exam Vasc: DP/PT pulses fully palpable 2/4 b/l. Skin temperature warm to warm from proximal to distal. CFT < 3 seconds to all digits b/l. No edema noted b/l Neuro: Epicritic and protective sensation grossly diminished b/l Derm: 1 cm x 2 cm eschar noted to medial arch of right foot. No erythema, malodor, drainage, fluctuance or other clinical signs of infection noted MSK: No pain to ulceration site. No gross deformities noted. ROM WNL at all major joints. MMT 5/5 in all major muscle groups - Neurological Exam Neurological exam: Alert, Oriented x3 - Psychiatric Exam Psychiatric exam: Normal Affect, Normal Mood Results - Vital Signs Recent Vital Signs: Last Vital Signs Temp 98.6 F 02/01/19 15:00 Pulse 90 08/19/18 15:00 Resp 20 08/19/18 15:00 BP 150/80 08/19/18 15:00 Pulse Ox 98 08/19/18 15:00 - Labs Result Diagrams: 08/18/18 07:18 08/19/18 06:51 Labs: Laboratory Results - last 24 hr 08/19/18 08/19/18 08/19/18 02:05 06:25 06:51 Sodium 126 L Potassium 4.1 Chloride 90 L Carbon Dioxide 23 Anion Gap 17 BUN 14 Creatinine 1.0 Est GFR ( Amer) > 60 Est GFR (Non-Af Amer) > 60 POC Glucose (mg/dL) 240 H 267 H Random Glucose 237 H D Calcium 8.1 L Total Bilirubin 1.8 H Direct Bilirubin 0.7 H AST 50 ALT 18 L Alkaline Phosphatase 124 Total Protein 7.5 Albumin 4.3 Globulin 3.1 Albumin/Globulin Ratio 1.4 Amylase 87 Lipase 13 L 08/19/18 08/19/18 11:47 17:19 Sodium Potassium Chloride Carbon Dioxide Anion Gap BUN Creatinine Est GFR ( Amer) Est GFR (Non-Af Amer) POC Glucose (mg/dL) 290 H 236 H Random Glucose Calcium Total Bilirubin Direct Bilirubin AST ALT Alkaline Phosphatase Total Protein Albumin Globulin Albumin/Globulin Ratio Amylase Lipase Assessment & Plan - Assessment and Plan (Free Text) Assessment: 58M seen at bedside for right foot ulceration Plan: Patient seen and evaluated with Dr. Lamb Afebrile, absent leukocytosis Continue abx per ID Wound dressed with betadine, DSD Silvasorb ordered Xray ordered DIA/PVR ordered No plan for surgical intervention at this time Podiatry will continue to follow while patient in house - Date & Time Date: 08/19/18 Time: 19:30
[2018-08-20] MEDS: Sodium Chloride 0.9% 1,000 ML IV SCH ×3 (01:53→13:41)
[2018-08-20] MEDS: Piperacill/Tazo 3.375gm in Dex 3.375 GM/50 ML BAG IVPB SCH ×4 (01:54→19:27)
[2018-08-20] MEDS: Promethazine 12.5 mg/10 ml Syrup PO PRN (04:26)
[2018-08-20] MEDS: (Novolin R) Insulin Human Regular 100 units/ml vial SC SCH ×4 (07:58→21:40)
--- NOTE | 2018-08-20 08:50 | RAD ---
Date of service: 08/20/2018 PROCEDURE: Right Foot Radiographs. HISTORY: ulcer right foot, r/o OM COMPARISON: Right foot radiographs 12/15/2017. FINDINGS: BONES: Second digit amputation reiterated as well as partial amputations of the great toe and 3rd digit. No definite bony erosion or periosteal reaction to suggest osteomyelitis at this time. Heterotopic calcifications seen the soft tissues between 3rd and 4th digits laterally, once again. No fracture or destructive bony lesion appreciated. JOINTS: Normal. SOFT TISSUES: Normal. OTHER FINDINGS: None. IMPRESSION: No destructive bony lesion appreciable at this time. Prior 2nd digit amputation reiterated as well as partial amputation great toe and 3rd digit. MRI is available for follow-up if clinically warranted.
[2018-08-20] MEDS ORDERED: Aluminum Hydroxide/Magnesium Hydroxide Susp (30 mL) PO STA (08:51)
[2018-08-20] MEDS: (Novolin 70/30) NPH/Regular 70/30 Units/ml 10 ml vial SC SCH ×2 (10:15→21:39)
[2018-08-20] MEDS: Potassium Chloride 20 mEq/15 ml LIQ UD PO SCH (10:18)
--- NOTE | 2018-08-20 10:41 | US ---
Date of service: 08/19/2018 HISTORY: gastroparesis COMPARISON: None. TECHNIQUE: Sonographic evaluation of the abdomen. FINDINGS: LIVER: Measures 17.3 cm. Normal echogenicity of the liver parenchyma. Hepatopetal blood flow noted at the main portal vein with antegrade blood flow identified at the main hepatic vein. No mass. No intrahepatic bile duct dilatation. GALLBLADDER: Unremarkable. No gallstones. COMMON BILE DUCT: Measures 3.9 mm. No stones. No dilatation. PANCREAS: Is poorly identified due to extensive overlying bowel gas. RIGHT KIDNEY: Measures 13.1cm. Normal echogenicity. No calculus, mass, or hydronephrosis. LEFT KIDNEY: Measures 11.5cm. Normal echogenicity. No calculus, mass, or hydronephrosis. SPLEEN: Normal in size and contour. No mass. AORTA: No aneurysmal dilatation. IVC: Unremarkable. OTHER FINDINGS: None. IMPRESSION: Unremarkable liver with no associated cyst or solid mass. Normal directional blood flow seen the main portal and hepatic veins. Hepatic biliary tree is unremarkable including gallbladder and common bile duct. Pancreas poorly evaluated. The remainder of the examination appears unremarkable.
[2018-08-20] MEDS: SILVASORB ANTIMICROBIAL WOUND GEL TOP SCH (10:45)
[2018-08-20 11:00] LABS: BASO % 0.6 % (0.0-2.0); EOS % 0.5 % (0.0-4.0); HEMOGLOBIN 14.8 g/dL (12.0-18.0); LYMPH # 1.6 K/uL (1.0-4.3); LYMPH % 24.2 % (20.0-40.0); MEAN CORPUSCULAR HEMOGLOBIN 28.4 pg (27.0-31.0); MEAN PLATELET VOLUME 8.8 fL (7.2-11.7); MONO # 0.6 K/uL (0.0-0.8); MONO % 8.5 % (0.0-10.0); NEUT # 4.5 K/uL (1.8-7.0); NEUT % 66.2 % (50.0-75.0); RBC 5.2 Mil/uL (4.40-5.90); RED CELL DISTRIBUTION WIDTH 13.1 % (11.5-14.5); WHITE BLOOD COUNT 6.8 K/uL (4.8-10.8)
[2018-08-20 11:17] LABS: ALB/GLOB RATIO 1.5 (1.0-2.1); ALBUMIN 4.2 g/dL (3.5-5.0); ALT/SGPT 19 U/L (21-72); AST/SGOT 40 U/L (17-59); BLOOD UREA NITROGEN 11 mg/dL (9-20); CALCIUM 8.4 mg/dl (8.6-10.4); GFR NON-AFRICAN AMERICAN 57
--- NOTE | 2018-08-20 11:59 | CP.PCM.PN ---
Subjective - Date & Time of Evaluation Date of Evaluation: 08/20/18 Time of Evaluation: 11:59 - Subjective Subjective: Podiatry Progress Note -Dr. Lamb 58 y/o male seen at bedside this morning with Dr. Lamb for right foot diabetic ulcer. Pt in discomfort at time of visit, stating his stomach pain and vomiting is persistent. Says he is aware of his need for tighter glucose control moving forward. Denies pain to the right foot. Denies F/C/CP/SOB Objective - Vital Signs/Intake and Output Vital Signs (last 24 hours): Temp Pulse Resp BP Pulse Ox 97.8 F 104 H 20 138/87 100 08/20/18 07:00 08/20/18 07:00 08/20/18 07:00 08/20/18 07:00 08/20/18 07:00 Intake and Output: 08/20/18 08/20/18 06:59 18:59 Intake Total 1000 Output Total 900 Balance 100 - Medications Medications: Current Medications Heparin Sodium (Porcine) (Heparin) 5,000 units SC Q8 [facility] Last Admin: 08/20/18 05:05 Dose: Not Given Piperacillin Sod/Tazobactam Sod (Zosyn 3.375 Gm Iv Premix) 3.375 gm in 50 mls @ 100 mls/hr IVPB Q6H [facility]; Protocol Last Admin: 08/20/18 08:02 Dose: 100 mls/hr Sodium Chloride (Sodium Chloride 0.9%) 1,000 mls @ 125 mls/hr IV .Q8H [facility] Stop: 08/20/18 13:47 Last Admin: 08/20/18 05:06 Dose: Not Given Sodium Chloride (Sodium Chloride 0.9%) 1,000 mls @ 100 mls/hr IV .Q10H [facility] Stop: 08/21/18 14:00 Insulin Human Isoph/Insulin Regular (Novolin 70/30 (70/30 Units/Ml) 10 Ml) 10 units SC Q12 [facility] Last Admin: 08/20/18 10:15 Dose: Not Given Insulin Human Regular (Novolin R) 0 unit SC ACHS [facility]; Protocol Last Admin: 08/20/18 07:58 Dose: Not Given Metoclopramide HCl (Reglan) 15 mg IVP Q6H [facility] Last Admin: 08/20/18 08:03 Dose: 15 mg Pantoprazole Sodium (Protonix Inj) 40 mg IVP DAILY [facility] Last Admin: 08/20/18 10:17 Dose: 40 mg Potassium Chloride (Potassium Chloride Oral Soln) 20 meq PO DAILY [facility] Stop: 08/20/18 14:01 Last Admin: 08/20/18 10:18 Dose: Not Given Promethazine HCl (Phenergan Syrup) 12.5 mg PO Q6 PRN PRN Reason: Nausea/Vomiting Last Admin: 08/20/18 04:26 Dose: 12.5 mg Rosuvastatin Calcium (Crestor) 5 mg PO HS [facility] Last Admin: 08/19/18 21:59 Dose: 5 mg - Labs Labs: 08/20/18 10:50 08/20/18 10:50 - Constitutional Appears: Well, Non-toxic, No Acute Distress - Extremities Exam Additional comments: RLE focused exam Vasc: DP/PT pulses fully palpable 2/4 B/L. Skin temperature warm to warm from proximal to distal. CFT < 3 seconds to all digits B/L. No edema noted B/L Neuro: Epicritic and protective sensation grossly diminished B/L Derm: 1 cm x 2 cm stable eschar noted to medial arch of right foot. No fransisco wound erythema, malodor, drainage, fluctuance or other clinical signs of infection noted MSK: No pain to ulceration site. No gross deformities noted. ROM WNL at all major joints. MMT 5/5 in all major muscle groups - Neurological Exam Neurological Exam: Alert, Awake, Oriented x3 - Psychiatric Exam Psychiatric exam: Normal Affect, Normal Mood Assessment and Plan - Assessment and Plan (Free Text) Assessment: 58 y/o male seen at bedside for right diabetic foot ulceration Plan: Patient seen and evaluated with Dr. Lamb Afebrile, absent leukocytosis Continue abx per ID Wound dressed with medi honey, DSD and JUD bandage Xrays R foot show no acute osseous findings, no evidence of periosteal rxn or bony erosions DIA/PVR studies pending No plan for surgical intervention at this time Podiatry will continue to follow while patient in house
--- NOTE | 2018-08-20 12:11 | PN ---
DATE: 08/20/2018 LOCATION: 661, bed A. HISTORY OF PRESENT ILLNESS: This is a 58-year-old male, seen and examined initially for GI consultation, 08/19/2018, reexamined again today with intermittent period of abdominal pain, severe nausea and vomiting, persistent for which I ordered ultrasound as well as serum lipase and amylase level yesterday, complaining of right lower extremity ulceration with pain. The entire chart is reviewed, including, but not limited to the most recent lab and radiology study results, current and the previous medication list, current and the previous medical events. Case discussed with the staff at length. On record, the patient's lipase and amylase level reported to be normal yesterday, however, today, his sodium is 125, CO2 content 21 indicative of metabolic acidosis, but normal BUN and creatinine. Blood glucose level 378 with total bilirubin 2.5. Most recently done abdominal ultrasound, yesterday, official report is seen, indicative on normal liver and apparently normal ultrasound. The patient still has complaint of abdominal pain with periods of nausea and vomiting. PHYSICAL EXAMINATION: GENERAL: A 58-year-old male, awake, alert, oriented, complaining of dyspepsia, nausea, abdominal pain on and off. VITAL SIGNS: Afebrile with pulse of 100, respiratory rate 20-22, blood pressure 132/84. HEENT: Showed mildly dry oral mucous membrane. Nonicteric sclerae. LUNGS: Few scattered crepitation. Decreased air entry at bases. HEART: Positive S1 and S2. ABDOMEN: Soft with mild generalized tenderness. No mass or organomegaly. No rebound tenderness or guarding. EXTREMITIES: With mild lower extremity edematous changes and ulceration, diabetic ulceration most likely of the right side, medial aspect. IMPRESSION: 1. Re-exacerbation of peptic ulcer disease with diabetic gastroparesis. 2. Known history of gastric ulcer, hypertension with hyperlipidemia. 3. Poorly controlled diabetes mellitus. SUGGESTIONS: 1. Agree with your plan. 2. Increase the dose of Reglan up to 20 mg IV push every 6-8 hours p.r.n. Further recommendation to follow. It has to be mentioned that if the patient continues to have recurrent nausea and vomiting and abdominal pain, then upper endoscopy to be scheduled. Otherwise, close observation to follow. Chad Palafox MD [facility] # [id number]
[2018-08-20] MEDS ORDERED: Aluminum Hydroxide/Magnesium Hydroxide Susp (30 mL) PO ONE (14:45)
[2018-08-20] MEDS: Aluminum Hydroxide/Magnesium Hydroxide Susp (30 mL) PO SCH ×2 (17:51→21:38)
[2018-08-20 22:50] LABS: BARBITURATES, UR NEGATIVE (NEGATIVE); BENZODIAZEPINES, UR NEGATIVE (NEGATIVE); OPIATES, UR NEGATIVE (NEGATIVE); PHENCYCLIDINE, UR NEGATIVE (NEGATIVE)
[2018-08-21] MEDS: Sodium Chloride 0.9% 1,000 ML IV SCH ×2 (01:27→10:00)
[2018-08-21] MEDS: Piperacill/Tazo 3.375gm in Dex 3.375 GM/50 ML BAG IVPB SCH ×4 (01:27→19:32)
[2018-08-21] MEDS: Promethazine 12.5 mg/10 ml Syrup PO PRN (04:38)
[2018-08-21] MEDS: (Novolin R) Insulin Human Regular 100 units/ml vial SC SCH ×4 (08:45→21:30)
[2018-08-21 08:55] LABS: BLOOD UREA NITROGEN 15 mg/dL (9-20); CALCIUM 7.7 mg/dl (8.6-10.4); GFR NON-AFRICAN AMERICAN > 60
[2018-08-21] MEDS: Aluminum Hydroxide/Magnesium Hydroxide Susp (30 mL) PO SCH ×4 (09:41→21:43)
[2018-08-21] MEDS: (Novolin 70/30) NPH/Regular 70/30 Units/ml 10 ml vial SC SCH ×2 (09:43→21:43)
[2018-08-21] MEDS: SILVASORB ANTIMICROBIAL WOUND GEL TOP SCH (10:01)
[2018-08-21] MEDS ORDERED: Sodium Chloride 0.9% 1,000 ML IV ONE (11:32)
[2018-08-21 12:45] LABS: VENOUS BLOOD GAS PCO2 32 mmHg (40-60); VENOUS BLOOD GAS PO2 33 mm/Hg (30-55); VENOUS BLOOD PH 7.29 (7.32-7.43)
[2018-08-21 20:01] LABS: BLOOD UREA NITROGEN 14 mg/dL (9-20); GFR NON-AFRICAN AMERICAN 52
--- NOTE | 2018-08-21 22:16 | CP.PCM.PN ---
Subjective - Date & Time of Evaluation Date of Evaluation: 08/21/18 Time of Evaluation: 14:00 - Subjective Subjective: dictated Objective - Vital Signs/Intake and Output Vital Signs (last 24 hours): Temp Pulse Resp BP Pulse Ox 98.3 F 93 H 20 108/70 96 08/21/18 16:00 08/21/18 16:00 08/21/18 16:00 08/21/18 16:00 08/21/18 16:00 Intake and Output: 08/21/18 08/22/18 18:59 06:59 Intake Total 1550 Output Total 800 700 Balance 750 -700 - Medications Medications: Current Medications Al Hydrox/Mg Hydrox/Simethicone (Maalox 30 Ml) 30 ml PO QID [facility] Last Admin: 08/21/18 21:43 Dose: 30 ml Piperacillin Sod/Tazobactam Sod (Zosyn 3.375 Gm Iv Premix) 3.375 gm in 50 mls @ 100 mls/hr IVPB Q6H [facility]; Protocol Last Admin: 08/21/18 19:32 Dose: 100 mls/hr Sodium Chloride (Sodium Chloride 0.9%) 1,000 mls @ 100 mls/hr IV .Q10H [facility] Insulin Human Isoph/Insulin Regular (Novolin 70/30 (70/30 Units/Ml) 10 Ml) 10 units SC Q12 [facility] Last Admin: 08/21/18 21:43 Dose: Not Given Insulin Human Regular (Novolin R) 0 unit SC ACHS [facility]; Protocol Last Admin: 08/21/18 21:30 Dose: Not Given Metoclopramide HCl (Reglan) 15 mg IVP Q6H [facility] Last Admin: 08/21/18 19:57 Dose: 15 mg Pantoprazole Sodium (Protonix Inj) 40 mg IVP DAILY [facility] Last Admin: 08/21/18 09:41 Dose: 40 mg Rosuvastatin Calcium (Crestor) 5 mg PO HS [facility] Last Admin: 08/21/18 21:43 Dose: 5 mg - Labs Labs: 08/20/18 10:50 08/21/18 19:35
[2018-08-22] MEDS: Sodium Chloride 0.9% 1,000 ML IV SCH ×2 (00:45→07:19)
--- NOTE | 2018-08-22 00:56 | PN ---
DATE: 08/21/2018 SUBJECTIVE: The patient, Nikolas Dunaway, has low sodium of 118. He has less nausea, less dizziness. He denies any headache or involuntary movement. He is weak. His blood sugars are high. PHYSICAL EXAMINATION: VITAL SIGNS: Blood pressure 108/70, pulse 93, respiratory rate 20, temperature 98.3. LUNGS: Clear. ABDOMEN: Soft, nontender. Bowel sounds are positive. CENTRAL NERVOUS SYSTEM: Awake, alert, and oriented x3. ASSESSMENT: 1. Severe hyponatremia. 2. Rule out diabetic ketoacidosis. 3. Dehydration. 4. Intractable nausea and vomiting. PLAN: Normal saline, Accu-Checks, sliding scale. Endocrinology consult. Giovanni Vaughan MD
[2018-08-22] MEDS: Piperacill/Tazo 3.375gm in Dex 3.375 GM/50 ML BAG IVPB SCH ×4 (02:08→20:00)
[2018-08-22] MEDS: (Novolin R) Insulin Human Regular 100 units/ml vial SC SCH ×3 (07:20→16:27)
--- NOTE | 2018-08-22 07:23 | PN ---
DATE: 08/21/2018 LOCATION: 661, bed E. SUBJECTIVE: This 58-year-old male seen and examined early in rounds with a complaint of recurrent abdominal pain with persistent nausea and vomiting despite IV medication given. No reported active bleeding and no reported chest pain, palpitation, shortness of breath, chills or fever. The entire chart is reviewed including the most recent lab and radiology study results, current and the previous medication list, current and the previous medical events and today's lab results showed blood glucose level of 400, indicative of poorly controlled diabetes mellitus and the patient may be heading to a stage of diabetic ketoacidosis with persistent nausea and vomiting and diabetic gastroparesis. There is a noticeable increase of total bilirubin level with low calcium yesterday as well as very low sodium due to most likely elevated blood glucose level with CO2 content of 21 indicative of metabolic acidosis. On record, the most recent done abdominal ultrasound ordered by me is seen. The patient may need MRCP or MRI of the abdomen. PHYSICAL EXAMINATION: GENERAL: A 58-year-old male appears to be awake, alert, oriented. VITAL SIGNS: Afebrile with pulse of 84, respiratory rate 20 to 22 blood pressure 132/76. HEENT: Showed dry oral mucoid membrane, slightly icteric sclerae bilaterally. HEART: Positive S1 and S2. LUNGS: Few scattered crepitation. Decreased air entry at bases. ABDOMEN: Soft with severe midepigastric and midabdominal line tenderness. No mass or organomegaly. No rebound tenderness or guarding. EXTREMITIES: Without significant edema, clubbing or cyanosis. NEUROLOGIC: No reported new neurological deficits, sensory or motor. The patient is still complaining of lower abdominal pain. IMPRESSION: 1. Poorly controlled diabetes mellitus with severe diabetic gastroparesis. 2. Metabolic acidosis secondary to above with possible early stage of ketoacidosis. 3. Electrolyte imbalance with hypocalcemia and hyponatremia secondary to above most likely. 4. Poorly controlled hypertension. 5. Re-exacerbation of peptic ulcer disease. 6. Known history of gastric ulcer, hypertension with hyperlipidemia. SUGGESTIONS: 1. Agree with your plan. 2. The patient may need insulin drip. 3. To be scheduled for upper endoscopy at a.m. due to his recurrent episodes of nausea and vomiting. 4. Further recommendation to follow. 5. MRCP. 6. Correct underlying electrolyte imbalance. 7. Increase Reglan to 20 mg IV every 6 hours, may add erythromycin IV. Chad Palafox MD
[2018-08-22 08:55] LABS: AMYLASE 82 U/L (30-110); BLOOD UREA NITROGEN 16 mg/dL (9-20); CALCIUM 8.3 mg/dl (8.6-10.4); GFR NON-AFRICAN AMERICAN 48; LIPASE < 10 U/L (23-300)
[2018-08-22] MEDS ORDERED: Sodium Chloride 0.9% 1,000 ML IV ONE ×2 (08:56→09:05)
[2018-08-22 09:40] LABS: VENOUS BLOOD GAS BASE EXCESS -15.7 mmol/L (0.0-2.0); VENOUS BLOOD GAS PCO2 32 mmHg (40-60); VENOUS BLOOD GAS PO2 23 mm/Hg (30-55); VENOUS BLOOD PH 7.17 (7.32-7.43)
[2018-08-22] MEDS ORDERED: (Novolin R) Insulin Human Regular 100 units/ml vial SC ONE (09:45)
[2018-08-22] MEDS ORDERED: (Novolin R) Insulin Human Regular 100 units/ml vial ONE (09:45)
--- NOTE | 2018-08-22 09:46 | CP.PCM.PN ---
Subjective - Date & Time of Evaluation Date of Evaluation: 08/22/18 Time of Evaluation: 09:00 - Subjective Subjective: pick up worker notes upon reviewing labs in am noted , PT IN DKA WITH NA- 122, CL,86,ANION GAP 32 AND CO2-8 AND BS 468 patient seen and examined at bed side , awake, alert, c/o nauseous and bleching and vomited clear emesis vdss taken bp 148/82 . pulse 86 . As per RN patient received coverage for bs THIS AM normal saline blous started and vbg and lactic acid , ordered stat Objective - Vital Signs/Intake and Output Vital Signs (last 24 hours): Temp Pulse Resp BP Pulse Ox 98.1 F 150 H 20 120/80 96 08/21/18 22:00 08/21/18 22:00 08/21/18 22:00 08/21/18 22:00 08/21/18 22:00 Intake and Output: 08/22/18 08/22/18 06:59 18:59 Intake Total 2650 Output Total 700 Balance 1950 - Medications Medications: Current Medications Al Hydrox/Mg Hydrox/Simethicone (Maalox 30 Ml) 30 ml PO QID KEV[facility] Last Admin: 08/21/18 21:43 Dose: 30 ml Piperacillin Sod/Tazobactam Sod (Zosyn 3.375 Gm Iv Premix) 3.375 gm in 50 mls @ 100 mls/hr IVPB Q6H KEV[facility]; Protocol Last Admin: 08/22/18 02:08 Dose: 100 mls/hr Sodium Chloride (Sodium Chloride 0.9%) 1,000 mls @ 100 mls/hr IV .Q10H KEV[facility] Last Admin: 08/22/18 07:19 Dose: 100 mls/hr Sodium Chloride (Sodium Chloride 0.9%) 1,000 mls @ 250 mls/hr IV .Q4H ONE Stop: 08/22/18 12:55 Sodium Chloride (Sodium Chloride 0.9%) 1,000 mls @ 1,000 mls/hr IV .Q1H ONE Stop: 08/22/18 10:04 Insulin Human Isoph/Insulin Regular (Novolin 70/30 (70/30 Units/Ml) 10 Ml) 10 units SC Q12 K[facility] Last Admin: 08/21/18 21:43 Dose: Not Given Insulin Human Regular (Novolin R) 0 unit SC ACHS KEV[facility]; Protocol Last Admin: 08/22/18 07:20 Dose: 10 units Metoclopramide HCl (Reglan) 15 mg IVP Q6H [facility] Last Admin: 08/22/18 09:30 Dose: 15 mg Pantoprazole Sodium (Protonix Inj) 40 mg IVP DAILY [facility] Last Admin: 08/21/18 09:41 Dose: 40 mg Rosuvastatin Calcium (Crestor) 5 mg PO HS [facility]EV[facility] Last Admin: 08/21/18 21:43 Dose: 5 mg - Labs Labs: 08/20/18 10:50 08/22/18 07:29 Assessment and Plan - Assessment and Plan (Free Text) Assessment: 58 yr old male with pmhx of Diabetes,on insulin at home , Gastritis, Gastrointestinal Ulcer, HTN, Hypercholesterolemia admitted with nausea and vomiting upon receiving the am labs noted low co2 and high anion gap Assessment DKA severe gastroporosis plan NSS bolus started followed by nss 250 ml/hr vbg and lactic acid ICU intensiivit Dr. Patterson contacted for possible transfer to icu for insulin drip [employer] called fro further management
--- NOTE | 2018-08-22 09:47 | CP.PCM.PN ---
Subjective - Date & Time of Evaluation Date of Evaluation: 08/22/18 Time of Evaluation: 09:45 - Subjective Subjective: Podiatry Progress Note -Dr. Lamb 58 y/o male seen at bedside this morning with Dr. Lamb for right foot diabetic ulcer. Reports that the N/V has improved but still present. Says he is aware of his need for tighter glucose control moving forward. Denies pain to the right foot. Denies F/C/CP/SOB Objective - Vital Signs/Intake and Output Vital Signs (last 24 hours): Temp Pulse Resp BP Pulse Ox 98.1 F 150 H 20 120/80 96 08/21/18 22:00 08/21/18 22:00 08/21/18 22:00 08/21/18 22:00 08/21/18 22:00 Intake and Output: 08/22/18 08/22/18 06:59 18:59 Intake Total 2650 Output Total 700 Balance 1950 - Medications Medications: Current Medications Al Hydrox/Mg Hydrox/Simethicone (Maalox 30 Ml) 30 ml PO QID [facility] Last Admin: 08/21/18 21:43 Dose: 30 ml Piperacillin Sod/Tazobactam Sod (Zosyn 3.375 Gm Iv Premix) 3.375 gm in 50 mls @ 100 mls/hr IVPB Q6H KEV[facility]; Protocol Last Admin: 08/22/18 02:08 Dose: 100 mls/hr Sodium Chloride (Sodium Chloride 0.9%) 1,000 mls @ 100 mls/hr IV .Q10H [facility] Last Admin: 08/22/18 07:19 Dose: 100 mls/hr Sodium Chloride (Sodium Chloride 0.9%) 1,000 mls @ 250 mls/hr IV .Q4H ONE Stop: 08/22/18 12:55 Sodium Chloride (Sodium Chloride 0.9%) 1,000 mls @ 1,000 mls/hr IV .Q1H ONE Stop: 08/22/18 10:04 Insulin Human Isoph/Insulin Regular (Novolin 70/30 (70/30 Units/Ml) 10 Ml) 10 units SC Q12 [facility] Last Admin: 08/21/18 21:43 Dose: Not Given Insulin Human Regular (Novolin R) 0 unit SC ACHS [facility]; Protocol Last Admin: 08/22/18 07:20 Dose: 10 units Insulin Human Regular (Novolin R) 14 unit SC ONCE ONE Stop: 08/22/18 09:46 Metoclopramide HCl (Reglan) 15 mg IVP Q6H [facility] Last Admin: 08/22/18 09:30 Dose: 15 mg Pantoprazole Sodium (Protonix Inj) 40 mg IVP DAILY [facility] Last Admin: 08/21/18 09:41 Dose: 40 mg Rosuvastatin Calcium (Crestor) 5 mg PO HS [facility] Last Admin: 08/21/18 21:43 Dose: 5 mg - Labs Labs: 08/20/18 10:50 08/22/18 07:29 - Constitutional Appears: Well, Non-toxic, No Acute Distress - Extremities Exam Additional comments: RLE focused exam Vasc: DP/PT pulses fully palpable 2/4 B/L. Skin temperature warm to warm from proximal to distal. CFT < 3 seconds to all digits B/L. No edema noted B/L Neuro: Epicritic and protective sensation grossly diminished B/L Derm: 1 cm x 2 cm stable eschar noted to medial arch of right foot. No fransisco wound erythema, malodor, drainage, fluctuance or other clinical signs of infection noted MSK: No pain to ulceration site. No gross deformities noted. ROM WNL at all major joints. MMT 5/5 in all major muscle groups - Neurological Exam Neurological Exam: Alert, Awake, Oriented x3 - Psychiatric Exam Psychiatric exam: Normal Affect, Normal Mood Assessment and Plan - Assessment and Plan (Free Text) Assessment: 58 y/o male seen at bedside for right diabetic foot ulceration Plan: Patient seen and evaluated with Dr. Lamb Afebrile, absent leukocytosis Continue abx per ID Wound dressed with medi honey, DSD and JUD bandage X-rays R foot show no acute osseous findings, no evidence of periosteal rxn or bony erosions MRI ordered to r/o OM - wound is very superficial, less likely patient has direct OM DIA/PVR studies pending As per GI, patient's N/V can be due to zosyn, rec. to change the abx No plan for surgical intervention at this time Podiatry will continue to follow while patient in house
[2018-08-22] MEDS: (Novolin 70/30) NPH/Regular 70/30 Units/ml 10 ml vial SC SCH (09:59)
[2018-08-22] MEDS: Aluminum Hydroxide/Magnesium Hydroxide Susp (30 mL) PO SCH ×4 (09:59→22:20)
--- NOTE | 2018-08-22 10:04 | PCM.RRT ---
DIESEL POWER SHOVEL OPERATOR Nurses Assessment - Situation Date: 08/22/18 Time DIESEL POWER SHOVEL OPERATOR was called: 09:33 DIESEL POWER SHOVEL OPERATOR Responder Arrival Time:: 09:35 DIESEL POWER SHOVEL OPERATOR Location:: 6T Med/Surg DIESEL POWER SHOVEL OPERATOR Reason for Call: Looks Sicker DIESEL POWER SHOVEL OPERATOR Called By: RN - IV IV Inserted during DIESEL POWER SHOVEL OPERATOR?: No - Respiratory DIESEL POWER SHOVEL OPERATOR Delivery Method: Room Air - Medication Medications Administered During DIESEL POWER SHOVEL OPERATOR: Insulin Regular 14 u sc - Leslee Coma Scale Coma Scale Eye Opening: Spontaneous Coma Scale Motor: Obeys Commands Movement Coma Scale Verbal: Oriented Coma Scale Total: 15 - Recommendations 5) DIESEL POWER SHOVEL OPERATOR Level of Care Recommendations: Transfer to ICU Notifications: Attending Physician, Consultations, Family or Designated Caregiver I.Reason for DIESEL POWER SHOVEL OPERATOR - A) Acute Change in Patient: (Select all that apply): Staff member or family is worried about patient - Neurological Status (Select all that apply): Alert, Oriented - Respiratory Oxygen Delivery Method: Room Air - Constitutional Appears: Non-toxic, In Acute Distress - Head Head Exam: ATRAUMATIC, NORMAL INSPECTION, NORMOCEPHALIC - Eyes Eye Exam: EOMI, Normal appearance - Respiratory Exam Respiratory Exam: Clear to Ausculation Bilateral, NORMAL BREATHING PATTERN - Cardiovascular Exam Cardiovascular Exam: REGULAR RHYTHM, RRR, +S1, +S2 - GI/Abdominal Exam GI & Abdominal Exam: Soft, Tenderness, Normal Bowel Sounds - Neurological Exam Neurological Exam: Alert, Awake, Oriented x3 - Extremities Exam Extremities Exam: Normal Inspection. absent: Pedal Edema, Tenderness Plan - Assessment of Findings&Treatment Plan Nurse practitioner called DIESEL POWER SHOVEL OPERATOR when she saw the results of patient's blood work with glucose of 468 and bicarb of 8. Patient was nauseous and vomiting. Vital signs: 145/83, P 89, O2 100% on RA. POC Glucose was 461. Patient given bolus of 1 L NS and Novolin R 14 u sc. Zofran given. Then NS with 30KCl ordered to be given at 250cc/hr. Dr. Patterson, critical care consulted. VBG showed pH 7.17 and lactate 2.2 Patient to be transferred to ICU to placed on insulin drip.
[2018-08-22] MEDS ORDERED: Dextrose 50% SYRINGE Inj (50 ml) IV PRN (11:00)
[2018-08-22] MEDS ORDERED: Glucagon Recombinant 1 mg Inj IM PRN (11:00)
--- NOTE | 2018-08-22 11:03 | CP.PCM.CON ---
History of Present Illness - History of Present Illness History of Present Illness: PGY-[address] Lela Patterson reason for consult: DIE CUT OPERATOR 6T for nauseous vomiting, hyperglycemia, low bicarb Patient is a 58 year old male with pmhx of DM admitted on 08/17 for nausea and vomiting with malaise, being worked up for Diabetic gastroparesis. Patient is not compliant with insulin and glucose accuchecks at home. Hemoglin A1C at this admission is 9.3. Patient was seen last June 2018 for similar symptoms, GI is on the case. Patient also has a diabetic foot ulcer on right side, seen by podiatry in this admission to rule out OM. rapid was called ealier today for nausea and vomiting, VBG done shows pH of 7.17 and lactate 2.2, glucose 468 and bicarb of 8. Patient given one bolus if IV fluids and one time novolin SC 14 units in the floor, and placed on NS with 30 KCL at 240 cc. Patient continues to feel nauseous and observed to be bleching, no vomiting at this time. Patient transferred to ICU for management of DKA. 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 sochx: former smoker Meds: as per EMR All: NKDA Review of Systems - Review of Systems All systems: reviewed and no additional remarkable complaints except Review of Systems: as stated in HPI Past Patient History - Infectious Disease Hx of Infectious Diseases: None - Tetanus Immunizations Tetanus Immunization: Unknown - Past Medical History & Family History Past Medical History?: Yes - Past Social History Smoking Status: Former Smoker - CARDIAC Hx Hypercholesterolemia: Yes Hx Hypertension: Yes - PULMONARY Hx Respiratory Disorders: No - NEUROLOGICAL Hx Neurological Disorder: No - HEENT Hx HEENT Problems: No - RENAL Hx Chronic Kidney Disease: No - ENDOCRINE/METABOLIC Hx Diabetes Mellitus Type 2: Yes - HEMATOLOGICAL/ONCOLOGICAL Hx Blood Disorders: No - INTEGUMENTARY Hx Dermatological Problems: Yes Other/Comment: HX: GANGRENE RIGHT FOOT TOE(GREAT) surgery. 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) surgery - MUSCULOSKELETAL/RHEUMATOLOGICAL Hx Musculoskeletal Disorders: No Hx Falls: No - GASTROINTESTINAL Hx Gastrointestinal Disorders: Yes Hx Gastritis: Yes - GENITOURINARY/GYNECOLOGICAL Hx Genitourinary Disorders: No - PSYCHIATRIC Hx Psychophysiologic Disorder: No Hx Substance Use: No - SURGICAL HISTORY Hx Surgeries: Yes Hx Amputation: Yes Hx Appendectomy: Yes (right 2nd and 3rd toes partially amputated ,and Big toe) Other/Comment: left big toe had some bone removed 7yrs ago - ANESTHESIA Hx Anesthesia: Yes Hx Anesthesia Reactions: No Hx Malignant Hyperthermia: No Meds Allergies/Adverse Reactions: Allergies Allergy/AdvReac Type Severity Reaction Status Date / Time No Known Allergies Allergy Verified 08/17/18 18:53 - Medications Medications: Current Medications Al Hydrox/Mg Hydrox/Simethicone (Maalox 30 Ml) 30 ml PO QID [facility] Last Admin: 08/22/18 09:59 Dose: Not Given Dextrose (Dextrose 50% Inj) 0 ml IV STAT PRN; Protocol PRN Reason: Hypoglycemia Protocol Dextrose (Glutose 15) 0 gm PO ONCE PRN; Protocol PRN Reason: Hypoglycemia Protocol Glucagon (Glucagen Diagnostic Kit) 0 mg IM STAT PRN; Protocol PRN Reason: Hypoglycemia Protocol Piperacillin Sod/Tazobactam Sod (Zosyn 3.375 Gm Iv Premix) 3.375 gm in 50 mls @ 100 mls/hr IVPB Q6H [facility]; Protocol Last Admin: 08/22/18 02:08 Dose: 100 mls/hr Sodium Chloride (Sodium Chloride 0.9%) 1,000 mls @ 250 mls/hr IV .Q4H ONE Stop: 08/22/18 12:55 Potassium Chloride 30 meq/ (Sodium Chloride) 1,015 mls @ 250 mls/hr IV .Q4H4M [facility]YN Dextrose (Dextrose 5% In Water 1000 Ml) 1,000 mls @ 0 mls/hr IV .Q0M PRN; Pro tocol PRN Reason: Hypoglycemia Protocol Insulin Human Regular 100 unit (/ Sodium Chloride) 100 mls @ 2 mls/hr IV .Q24H [facility]; Protocol Insulin Human Regular (Novolin R) 0 unit SC ACHS [facility]; Protocol Last Admin: 08/22/18 07:20 Dose: 10 units Pantoprazole Sodium (Protonix Inj) 40 mg IVP DAILY [facility] Last Admin: 08/21/18 09:41 Dose: 40 mg Rosuvastatin Calcium (Crestor) 5 mg PO HS [facility] Last Admin: 08/21/18 21:43 Dose: 5 mg Physical Exam - Constitutional Appears: Non-toxic, No Acute Distress - Head Exam Head Exam: ATRAUMATIC, NORMAL INSPECTION, NORMOCEPHALIC - Eye Exam Eye Exam: EOMI, Normal appearance - Respiratory Exam Respiratory Exam: Clear to Auscultation Bilateral, NORMAL BREATHING PATTERN - Cardiovascular Exam Cardiovascular Exam: REGULAR RHYTHM, +S1, +S2 - GI/Abdominal Exam GI & Abdominal Exam: Normal Bowel Sounds, Soft - Extremities Exam Extremities exam: Negative for: pedal edema, tenderness Additional comments: right foot dressing in place for diabetic ulcer, clean and dry, non tender to palpation - Neurological Exam Neurological exam: Alert, Oriented x3 - Psychiatric Exam Psychiatric exam: Anxious - Skin Skin Exam: Dry, Warm Results - Vital Signs Recent Vital Signs: Last Vital Signs Temp 98.1 F 08/21/18 22:00 Pulse 150 H 08/21/18 22:00 Resp 20 08/21/18 22:00 BP 120/80 08/21/18 22:00 Pulse Ox 96 08/21/18 22:00 - Labs Result Diagrams: 08/20/18 10:50 08/22/18 07:29 Labs: Laboratory Results - last 24 hr 08/21/18 08/21/18 08/21/18 11:57 12:42 17:06 pO2 33 VBG pH 7.29 L VBG pCO2 32 L VBG HCO3 16.0 VBG Total CO2 16.4 L VBG O2 Sat (Calc) 63.5 VBG Base Excess -10.0 L VBG Potassium 3.3 L Sodium 122.0 L Chloride 86.0 L Glucose 298 H Lactate 1.8 Crit Value Called To Crit Value Called By Crit Value Read Back Blood Gas Notified Time Potassium Carbon Dioxide Anion Gap BUN Creatinine Est GFR ( Amer) Est GFR (Non-Af Amer) POC Glucose (mg/dL) 341 H 216 H Random Glucose Lactic Acid Calcium Amylase Lipase CA 19-9 Antigen Venous Blood Potassium 3.3 L 08/21/18 08/21/18 08/22/18 19:35 21:29 06:36 pO2 VBG pH VBG pCO2 VBG HCO3 VBG Total CO2 VBG O2 Sat (Calc) VBG Base Excess VBG Potassium Sodium 127 L Chloride 91 L Glucose Lactate Crit Value Called To Crit Value Called By Crit Value Read Back Blood Gas Notified Time Potassium 3.8 Carbon Dioxide 24 Anion Gap 16 BUN 14 Creatinine 1.4 Est GFR ( Amer) > 60 Est GFR (Non-Af Amer) 52 POC Glucose (mg/dL) 289 H > 500 H* Random Glucose 311 H Lactic Acid Calcium 8.0 L Amylase Lipase CA 19-9 Antigen Venous Blood Potassium 08/22/18 08/22/18 08/22/18 07:29 09:30 09:30 pO2 23 L VBG pH 7.17 L* VBG pCO2 32 L VBG HCO3 10.7 VBG Total CO2 12.7 L VBG O2 Sat (Calc) 38.9 L VBG Base Excess -15.7 L VBG Potassium 3.2 L Sodium 122 L 124.0 L Chloride 86 L 89.0 L Glucose 402 H* D Lactate 2.2 H Crit Value Called To kacey Aguilar,paresh Crit Value Called By Caroline wolf, Crit Value Read Back Y Blood Gas Notified Time 940 Potassium 3.8 Carbon Dioxide 8 L* D Anion Gap 32 H BUN 16 Creatinine 1.5 Est GFR ( Amer) 58 Est GFR (Non-Af Amer) 48 POC Glucose (mg/dL) Random Glucose 468 H* D Lactic Acid 1.8 Calcium 8.3 L Amylase 82 Lipase < 10 L CA 19-9 Antigen < 1.4 Venous Blood Potassium 3.2 L 08/22/18 09:37 pO2 VBG pH VBG pCO2 VBG HCO3 VBG Total CO2 VBG O2 Sat (Calc) VBG Base Excess VBG Potassium Sodium Chloride Glucose Lactate Crit Value Called To Crit Value Called By Crit Value Read Back Blood Gas Notified Time Potassium Carbon Dioxide Anion Gap BUN Creatinine Est GFR ( Amer) Est GFR (Non-Af Amer) POC Glucose (mg/dL) 461 H* Random Glucose Lactic Acid Calcium Amylase Lipase CA 19-9 Antigen Venous Blood Potassium Assessment & Plan - Assessment and Plan (Free Text) Plan: Patient is a 58 year old male with pmhx of uncontrolled DM2, HTN, that is admitted to hospital for nausea, vomiting 2/2 Diabetic gastroparesis, transferred to ICU for DKA, with pH 7.17, glucose 500s, CO2 on CBC 8, given insulin one dose and bolus, as well as high rate fluid KCL, started insulin drip at this time. Neuro AAOx3 no acute issues Cardio hx of HTN normotensive - continue monitoring vitals on Crestor 5mg HS Pulm chest xray : no focal consolidation no acute issues GI NPO Protonix N/V - reglan 15mg IVP Q6H ALuminum hydroxyde 30 PO QID given one dose of zofran Nephro BUN/cr wnl continue to monitor Endo DKA, VBG pH 7.17 Lac 2.2, glucose 402, CO2 32, CO2 on CBC earlier 8 Insulin 14 units SC x 1 time during DIE CUT OPERATOR start insulin drip 2mls/hr, DKA protocol alg 2 repeat CBC, CMP, Coags (Pt/PTT/INR), mg and phosp continue fluids NS with KCL @ 250mls/hr accucheks Q1H hypoglycemia protocol Extremity Right foot diabetic ulcer zosyn management as per podiatry Dr Lamb - podiatry consult PPX GI: Protonix 40mg IVP DVT: SCDS c/i for LE injury, Heparin 5000 Sc Q12H Plan discussed with Dr Leonardo Rodriguez, PGY-1 - Date & Time Date: 08/22/18 Time: 11:00
[2018-08-22] MEDS: SILVASORB ANTIMICROBIAL WOUND GEL TOP SCH (11:16)
[2018-08-22] MEDS: Potassium Chloride 30 MEQ in Sodium Chloride 0.9% 1,000 ML IV SCH ×2 (11:22→16:33)
[2018-08-22] MEDS ORDERED: Insulin Human Regular 100 UNIT in Sodium Chloride 0.9% 99 ML IV SCH ×2 (11:30→16:34)
--- NOTE | 2018-08-22 12:35 | PN ---
DATE: 08/22/2018 LOCATION: 661 bed A. SUBJECTIVE: This is a 58-year-old male scheduled for upper endoscopy today whatever due to the patient's recent excessive elevation of blood glucose level to about 461 and status post rapid response. The anesthesia staff was hesitating to perform upper endoscopy, procedure was canceled and to be rescheduled if the patient is stable. PHYSICAL EXAMINATION: GENERAL: The patient, however, appeared to be awake, alert, oriented. VITAL SIGNS: Afebrile without reported active bleeding with reported respiratory rate 20-22, blood pressure of 124/78 with heart rate of 106, at that seen by me, afebrile. HEENT: Showed pale dry oral mucous membrane. Nonicteric sclerae. LUNGS: Few scattered crepitation. Decreased air entry at bases. HEART: Positive S1, S2. ABDOMEN: Soft with mild generalized tenderness with no mass or organomegaly. EXTREMITIES: Without edematous changes. No clubbing or cyanosis. No reported new neurological deficits, sensory or motor. LABORATORY DATA: Lab results showed abnormal ABGs with the latest blood glucose level of 461 as the patient was given also of 10 units of regular insulin IV with low sodium 122 and calcium 8.3 with normal amylase and lipase level. IMPRESSION: 1. Re-exacerbation of peptic ulcer disease. 2. Poorly controlled diabetes mellitus with early stage of diabetic gastroparesis and possible diabetic ketoacidosis. 3. Re-exacerbation of peptic ulcer disease to rule out gastric versus duodenal ulcer. 4. Poorly controlled hypertension. 5. Known history of hyperlipidemia with gastric ulcer. SUGGESTIONS: 1. Agree with your plan. 2. Reschedule upper endoscopy at a.m. when the patient is more stable clinically. 3. Further recommendation to follow. Chad Palafox MD
[2018-08-22 12:37] LABS: BASO # 0.1 K/uL (0.0-0.2); BASO % 1.1 % (0.0-2.0); EOS % 0.2 % (0.0-4.0); LYMPH % 16.1 % (20.0-40.0); MEAN CELL VOLUME 85.1 fL (80.0-94.0); MEAN CORPUSCULAR HEMOGLOBIN 27.8 pg (27.0-31.0); MEAN CORPUSCULAR HGB CONC 32.7 g/dL (33.0-37.0); MEAN PLATELET VOLUME 8.7 fL (7.2-11.7); MONO # 0.7 K/uL (0.0-0.8); MONO % 5.4 % (0.0-10.0); NEUT # 9.8 K/uL (1.8-7.0); NEUT % 77.2 % (50.0-75.0); RBC 5.01 Mil/uL (4.40-5.90); RED CELL DISTRIBUTION WIDTH 13.2 % (11.5-14.5)
[2018-08-22 12:39] LABS: WHITE BLOOD COUNT 12.7 K/uL (4.8-10.8)
[2018-08-22 12:45] LABS: INR 0.9
[2018-08-22 13:01] LABS: ALB/GLOB RATIO 1.5 (1.0-2.1); ALBUMIN 4.3 g/dL (3.5-5.0); ALT/SGPT 13 U/L (21-72); AST/SGOT 35 U/L (17-59); BLOOD UREA NITROGEN 17 mg/dL (9-20); GFR NON-AFRICAN AMERICAN 52
[2018-08-22] MEDS ORDERED: Dextrose 5%/0.9% NS 1,000 ML IV SCH ×3 (16:45→20:57)
[2018-08-22 20:10] LABS: BASO # 0.1 K/uL (0.0-0.2); BASO % 1.1 % (0.0-2.0); EOS # 0.1 K/uL (0.0-0.7); EOS % 0.6 % (0.0-4.0); HEMOGLOBIN 13.3 g/dL (12.0-18.0); LYMPH # 1.9 K/uL (1.0-4.3); LYMPH % 21.2 % (20.0-40.0); MEAN CELL VOLUME 83.9 fL (80.0-94.0); MEAN CORPUSCULAR HEMOGLOBIN 28.1 pg (27.0-31.0); MEAN CORPUSCULAR HGB CONC 33.5 g/dL (33.0-37.0); MONO # 0.8 K/uL (0.0-0.8); MONO % 8.6 % (0.0-10.0); NEUT # 6.2 K/uL (1.8-7.0); NEUT % 68.5 % (50.0-75.0); NRBC % 0.1 % (0.0-2.0); RBC 4.75 Mil/uL (4.40-5.90)
[2018-08-22 20:23] LABS: ALB/GLOB RATIO 1.6 (1.0-2.1); ALBUMIN 3.7 g/dL (3.5-5.0); ALT/SGPT 16 U/L (21-72); AST/SGOT 28 U/L (17-59); BLOOD UREA NITROGEN 13 mg/dL (9-20); CALCIUM 8.1 mg/dl (8.6-10.4); GFR NON-AFRICAN AMERICAN > 60
[2018-08-22] MEDS ORDERED: (Novolin R) Insulin Human Regular 100 units/ml vial SC SCH (22:00)
[2018-08-22] MEDS: (Novolog Mix 70/30) Insulin Aspart/Insulin Aspar 100 units/ml SC SCH (22:30)
--- NOTE | 2018-08-22 22:50 | CP.PCM.PN ---
Subjective - Date & Time of Evaluation Date of Evaluation: 08/22/18 Time of Evaluation: 10:22 - Subjective Subjective: dictated Objective - Vital Signs/Intake and Output Vital Signs (last 24 hours): Temp Pulse Resp BP Pulse Ox 98.8 F 76 15 116/66 98 08/22/18 20:00 08/22/18 22:00 08/22/18 22:00 08/22/18 22:01 08/22/18 20:00 Intake and Output: 08/22/18 08/23/18 18:59 06:59 Intake Total 1469 790 Output Total 1750 900 Balance -281 -110 - Medications Medications: Current Medications Al Hydrox/Mg Hydrox/Simethicone (Maalox 30 Ml) 30 ml PO QID K[facility]YN Last Admin: 08/22/18 22:20 Dose: 30 ml Dextrose (Dextrose 50% Inj) 0 ml IV STAT PRN; Protocol PRN Reason: Hypoglycemia Protocol Dextrose (Glutose 15) 0 gm PO ONCE PRN; Protocol PRN Reason: Hypoglycemia Protocol Glucagon (Glucagen Diagnostic Kit) 0 mg IM STAT PRN; Protocol PRN Reason: Hypoglycemia Protocol Heparin Sodium (Porcine) (Heparin) 5,000 units SC Q12 KEVYN Last Admin: 08/22/18 22:19 Dose: 5,000 units Piperacillin Sod/Tazobactam Sod (Zosyn 3.375 Gm Iv Premix) 3.375 gm in 50 mls @ 100 mls/hr IVPB Q6H [facility]; Protocol Last Admin: 08/22/18 20:00 Dose: 100 mls/hr Dextrose (Dextrose 5% In Water 1000 Ml) 1,000 mls @ 0 mls/hr IV .Q0M PRN; Protocol PRN Reason: Hypoglycemia Protocol Potassium Chloride (Potassium Chloride 20 Meq/100 Ml) 20 meq in 100 mls @ 50 mls/hr IVPB ONCE ONE Stop: 08/22/18 22:50 Last Admin: 08/22/18 21:10 Dose: 50 mls/hr Dextrose/Sodium Chloride (Dextrose 5%/0.9% Ns 1000 Ml) 1,000 mls @ 100 mls/hr IV .Q10H [facility] Last Admin: 08/22/18 21:00 Dose: 100 mls/hr Insulin Aspart (Novolog Mix 70/30 (70/30 Units/Ml)) 10 units SC HS [facility] Insulin Aspart (Novolog Mix 70/30 (70/30 Units/Ml)) 20 units SC QAM [facility] Metoclopramide HCl (Reglan) 15 mg IVP Q6H [facility] Last Admin: 08/22/18 20:14 Dose: 15 mg Pantoprazole Sodium (Protonix Inj) 40 mg IVP DAILY [facility] Last Admin: 08/22/18 11:16 Dose: Not Given Rosuvastatin Calcium (Crestor) 5 mg PO HS [facility] Last Admin: 08/22/18 22:19 Dose: 5 mg - Labs Labs: 08/22/18 20:05 08/22/18 20:05 PT 10.0 SECONDS (9.7-12.2) 08/22/18 12:31 INR 0.9 08/22/18 12:31 APTT 25 SECONDS (21-34) 08/22/18 12:31
--- NOTE | 2018-08-22 23:25 | CARD ---
APPROVED REPORT Date of service: 08/17/2018 EKG Measurement Heart [id number] <Conclusion> Normal sinus rhythm T wave abnormality, consider inferior ischemia Abnormal ECG
[2018-08-23] MEDS: Piperacill/Tazo 3.375gm in Dex 3.375 GM/50 ML BAG IVPB SCH ×4 (02:48→20:23)
[2018-08-23] MEDS: Potassium Chloride 20 MEQ in Sodium Chloride 0.45% 1,000 ML IV SCH ×2 (03:23→22:02)
[2018-08-23 05:34] LABS: ARTERIAL BLOOD GAS HCO3 20.7 mmol/L (21-28); ARTERIAL BLOOD GAS PCO2 34 mm/Hg (35-45); ARTERIAL BLOOD GAS PH 7.36 (7.35-7.45); ARTERIAL BLOOD GAS PO2 93 mm/Hg (80-100); ARTERIAL BLOOD GAS TCO2 20.2 mmol/L (22-28)
[2018-08-23 06:28] LABS: BASO % 0.6 % (0.0-2.0); EOS # 0.1 K/uL (0.0-0.7); EOS % 1.5 % (0.0-4.0); HEMOGLOBIN 11.8 g/dL (12.0-18.0); LYMPH # 1.7 K/uL (1.0-4.3); LYMPH % 29.2 % (20.0-40.0); MEAN CORPUSCULAR HEMOGLOBIN 27.9 pg (27.0-31.0); MEAN CORPUSCULAR HGB CONC 33.2 g/dL (33.0-37.0); MEAN PLATELET VOLUME 8.4 fL (7.2-11.7); MONO # 0.6 K/uL (0.0-0.8); MONO % 10.5 % (0.0-10.0); NEUT # 3.4 K/uL (1.8-7.0); NEUT % 58.2 % (50.0-75.0); RBC 4.22 Mil/uL (4.40-5.90); RED CELL DISTRIBUTION WIDTH 12.9 % (11.5-14.5); WHITE BLOOD COUNT 5.8 K/uL (4.8-10.8)
[2018-08-23 06:50] LABS: ALB/GLOB RATIO 1.3 (1.0-2.1); ALT/SGPT 13 U/L (21-72); AST/SGOT 27 U/L (17-59); BLOOD UREA NITROGEN 9 mg/dL (9-20); CALCIUM 7.7 mg/dl (8.6-10.4); GFR NON-AFRICAN AMERICAN > 60
--- NOTE | 2018-08-23 07:26 | PN ---
PROCEDURE DATE: 08/22/2018 SUBJECTIVE: The patient, Nikolas Dunaway, developed diabetic ketoacidosis this morning with generalized weakness, low sodium, polyuria, polydipsia. Blood sugar was over 500. He was weak, tired. He has nausea and vomiting. No fever. No chills. PHYSICAL EXAMINATION: VITAL SIGNS: Blood pressure 116/66, pulse 76, respiratory rate 15, temperature 98. LUNGS: Clear. No rales or rhonchi. CVS: S1, S2. Regular. Tachycardiac. ABDOMEN: Soft, nontender. Bowel sounds are exaggerated. ASSESSMENT: 1. Acute diabetic ketoacidosis. The patient is on insulin drip and his sugar is in lower 80s. The patient has been switched over to D5 half with insulin drip. 2. Poorly controlled diabetes. 3. Hypertension. 4. Diabetic gastroparesis. PLAN: Medical management, insulin drip, Accu-Cheks, sliding scale, tight sugar coverage, and endocrinology consult. Giovanni Vaughan MD
[2018-08-23] MEDS: (Novolog Mix 70/30) Insulin Aspart/Insulin Aspar 100 units/ml SC SCH ×2 (08:00→22:03)
[2018-08-23] MEDS ORDERED: (Novolin R) Insulin Human Regular 100 units/ml vial ONE (08:36)
[2018-08-23] MEDS: Aluminum Hydroxide/Magnesium Hydroxide Susp (30 mL) PO SCH ×4 (09:20→22:06)
[2018-08-23] MEDS ORDERED: Potassium Phosphate 15 MMOLE in Sodium Chloride 0.9% 250 ML IVPB ONE (10:00)
[2018-08-23] MEDS: (Novolin R) Insulin Human Regular 100 units/ml vial SC SCH ×3 (11:30→22:04)
[2018-08-23] MEDS ORDERED: Lactated Ringer's 1,000 ML IV ONE (12:15)
[2018-08-23] MEDS ORDERED: Lidocaine Hydrochloride 5 ML INJ ONE (12:24)
[2018-08-23] MEDS ORDERED: Propofol 10 mg/ml Inj (20 ML) ONE (12:24)
[2018-08-23 14:09] VITALS: RESP 20
[2018-08-23] MEDS ORDERED: Morphine 4 MG/ML VIAL SC STA (20:48)
--- NOTE | 2018-08-23 22:37 | CP.PCM.PN ---
Subjective - Date & Time of Evaluation Date of Evaluation: 08/23/18 Time of Evaluation: 08:00 - Subjective Subjective: dictated Objective - Vital Signs/Intake and Output Vital Signs (last 24 hours): Temp Pulse Resp BP Pulse Ox 97.6 F 84 20 165/82 H 98 08/23/18 16:00 08/23/18 16:00 08/23/18 16:00 08/23/18 16:00 08/23/18 16:00 - Medications Medications: Current Medications Al Hydrox/Mg Hydrox/Simethicone (Maalox 30 Ml) 30 ml PO QID [facility] Last Admin: 08/23/18 22:06 Dose: 30 ml Dextrose (Dextrose 50% Inj) 0 ml IV STAT PRN; Protocol PRN Reason: Hypoglycemia Protocol Dextrose (Glutose 15) 0 gm PO ONCE PRN; Protocol PRN Reason: Hypoglycemia Protocol Glucagon (Glucagen Diagnostic Kit) 0 mg IM STAT PRN; Protocol PRN Reason: Hypoglycemia Protocol Heparin Sodium (Porcine) (Heparin) 5,000 units SC Q12 [facility] Last Admin: 08/23/18 22:03 Dose: 5,000 units Piperacillin Sod/Tazobactam Sod (Zosyn 3.375 Gm Iv Premix) 3.375 gm in 50 mls @ 100 mls/hr IVPB Q6H [facility]; Protocol Last Admin: 08/23/18 20:23 Dose: 100 mls/hr Dextrose (Dextrose 5% In Water 1000 Ml) 1,000 mls @ 0 mls/hr IV .Q0M PRN; Protocol PRN Reason: Hypoglycemia Protocol Potassium Chloride 20 meq/ (Sodium Chloride) 1,010 mls @ 80 mls/hr IV .[id number] [facility] Last Admin: 08/23/18 22:02 Dose: 80 mls/hr Insulin Aspart (Novolog Mix 70/30 (70/30 Units/Ml)) 10 units SC HS [facility] Last Admin: 08/23/18 22:03 Dose: 10 units Insulin Aspart (Novolog Mix 70/30 (70/30 Units/Ml)) 20 units SC QAM [facility] Last Admin: 08/23/18 08:00 Dose: Not Given Insulin Human Regular (Novolin R) 0 unit SC ACHS [facility]; Protocol Last Admin: 08/23/18 22:04 Dose: 2 unit Metoclopramide HCl (Reglan) 10 mg IVP Q6H [facility] Last Admin: 08/23/18 20:23 Dose: 10 mg Pantoprazole Sodium (Protonix Inj) 40 mg IVP DAILY [facility] Last Admin: 08/23/18 14:40 Dose: 40 mg Rosuvastatin Calcium (Crestor) 5 mg PO HS [facility] Last Admin: 08/23/18 22:03 Dose: 5 mg - Labs Labs: 08/23/18 06:19 08/23/18 06:19 PT 10.0 SECONDS (9.7-12.2) 08/22/18 12:31 INR 0.9 08/22/18 12:31 APTT 25 SECONDS (21-34) 08/22/18 12:31
[2018-08-24] MEDS: Piperacill/Tazo 3.375gm in Dex 3.375 GM/50 ML BAG IVPB SCH ×4 (02:39→19:31)
[2018-08-24] MEDS: (Novolin R) Insulin Human Regular 100 units/ml vial SC SCH ×4 (08:02→21:19)
[2018-08-24] MEDS: (Novolog Mix 70/30) Insulin Aspart/Insulin Aspar 100 units/ml SC SCH ×2 (10:00→21:27)
[2018-08-24] MEDS: SILVASORB ANTIMICROBIAL WOUND GEL TOP SCH (10:00)
[2018-08-24] MEDS: Aluminum Hydroxide/Magnesium Hydroxide Susp (30 mL) PO SCH ×3 (10:41→18:24)
[2018-08-24 11:54] LABS: BASO # 0.1 K/uL (0.0-0.2); BASO % 0.6 % (0.0-2.0); EOS # 0.1 K/uL (0.0-0.7); EOS % 1.1 % (0.0-4.0); HEMOGLOBIN 13.7 g/dL (12.0-18.0); LYMPH # 2.6 K/uL (1.0-4.3); LYMPH % 23.2 % (20.0-40.0); MEAN CELL VOLUME 83.5 fL (80.0-94.0); MEAN CORPUSCULAR HEMOGLOBIN 28.4 pg (27.0-31.0); MEAN PLATELET VOLUME 8.6 fL (7.2-11.7); MONO % 8.7 % (0.0-10.0); NEUT # 7.5 K/uL (1.8-7.0); NEUT % 66.4 % (50.0-75.0); NRBC % 0.1 % (0.0-2.0); RBC 4.84 Mil/uL (4.40-5.90); RED CELL DISTRIBUTION WIDTH 13.4 % (11.5-14.5)
[2018-08-24 12:08] LABS: WHITE BLOOD COUNT 11.4 K/uL (4.8-10.8)
[2018-08-24 12:20] LABS: ALB/GLOB RATIO 1.4 (1.0-2.1); ALBUMIN 4.4 g/dL (3.5-5.0); ALT/SGPT 15 U/L (21-72); AST/SGOT 38 U/L (17-59); BLOOD UREA NITROGEN 5 mg/dL (9-20); CALCIUM 8.7 mg/dl (8.6-10.4); GFR NON-AFRICAN AMERICAN > 60
[2018-08-24] MEDS: Potassium Chloride 20 MEQ in Sodium Chloride 0.45% 1,000 ML IV SCH ×2 (12:26→17:07)
--- NOTE | 2018-08-24 12:59 | CP.PCM.PN ---
Subjective - Date & Time of Evaluation Date of Evaluation: 08/24/18 Time of Evaluation: 12:56 - Subjective Subjective: GI Progress Note for Dr. Bliss Patient seen and examined this afternoon. Patient was on his way to the bathroom to vomit. Patient is frustrated due to persistent hiccup/vomiting/retching and "nothing helps." Patient was previously on reglan 15 mg IV q6h, was changed by ICU to 10 mg. Patient said he would like more reglan because that could help him. Patient was put on CLD but states he vomits it up. Patient endorses abdominal pain 2/2 constant vomiting and having to use his abdominal muscles. He said that morphine helps the pain. Objective - Vital Signs/Intake and Output Vital Signs (last 24 hours): Temp Pulse Resp BP Pulse Ox 98.0 F 91 H 20 140/80 96 08/24/18 07:10 08/24/18 07:10 08/24/18 07:10 08/24/18 07:10 08/24/18 07:10 Intake and Output: 08/24/18 08/24/18 06:59 18:59 Intake Total 1610 Output Total 1200 Balance 410 - Medications Medications: Current Medications Al Hydrox/Mg Hydrox/Simethicone (Maalox 30 Ml) 30 ml PO QID [facility] Last Admin: 08/24/18 10:41 Dose: 30 ml Dextrose (Dextrose 50% Inj) 0 ml IV STAT PRN; Protocol PRN Reason: Hypoglycemia Protocol Dextrose (Glutose 15) 0 gm PO ONCE PRN; Protocol PRN Reason: Hypoglycemia Protocol Glucagon (Glucagen Diagnostic Kit) 0 mg IM STAT PRN; Protocol PRN Reason: Hypoglycemia Protocol Heparin Sodium (Porcine) (Heparin) 5,000 units SC Q12 [facility] Last Admin: 08/24/18 10:41 Dose: 5,000 units Piperacillin Sod/Tazobactam Sod (Zosyn 3.375 Gm Iv Premix) 3.375 gm in 50 mls @ 100 mls/hr IVPB Q6H [facility]; Protocol Last Admin: 08/24/18 08:04 Dose: 100 mls/hr Dextrose (Dextrose 5% In Water 1000 Ml) 1,000 mls @ 0 mls/hr IV .Q0M PRN; Protocol PRN Reason: Hypoglycemia Protocol Potassium Chloride 20 meq/ (Sodium Chloride) 1,010 mls @ 80 mls/hr IV .[id number] [facility] Last Admin: 08/24/18 12:26 Dose: 80 mls/hr Insulin Aspart (Novolog Mix 70/30 (70/30 Units/Ml)) 10 units SC [facility] Last Admin: 08/23/18 22:03 Dose: 10 units Insulin Aspart (Novolog Mix 70/30 (70/30 Units/Ml)) 20 units SC QAM [facility] Last Admin: 08/24/18 10:00 Dose: 20 units Insulin Human Regular (Novolin R) 0 unit SC ACHS [facility]; Protocol Last Admin: 08/24/18 12:25 Dose: Not Given Metoclopramide HCl (Reglan) 10 mg IVP Q6H [facility] Last Admin: 08/24/18 08:01 Dose: 10 mg Pantoprazole Sodium (Protonix Inj) 40 mg IVP DAILY [facility] Last Admin: 08/24/18 10:41 Dose: 40 mg Rosuvastatin Calcium (Crestor) 5 mg PO [facility] Last Admin: 08/23/18 22:03 Dose: 5 mg - Labs Labs: 08/24/18 11:41 08/24/18 11:41 PT 10.0 SECONDS (9.7-12.2) 08/22/18 12:31 INR 0.9 08/22/18 12:31 APTT 25 SECONDS (21-34) 08/22/18 12:31 - Constitutional Appears: Agitated (retching w/o vomit during conversation, acidic odor/jello odor (vomiting clear liquid diet lunch)) - Head Exam Head Exam: ATRAUMATIC, NORMAL INSPECTION - Neck Exam Neck Exam: Normal Inspection - Respiratory Exam Respiratory Exam: Clear to Ausculation Bilateral, NORMAL BREATHING PATTERN - Cardiovascular Exam Cardiovascular Exam: REGULAR RHYTHM - GI/Abdominal Exam GI & Abdominal Exam: Soft, Normal Bowel Sounds - Neurological Exam Neurological Exam: Alert, Awake, Oriented x3 - Psychiatric Exam Psychiatric exam: Agitated - Skin Skin Exam: Dry, Intact, Normal Color, Warm Assessment and Plan - Assessment and Plan (Free Text) Assessment: 58 y/o male with PMHx of DM presented to the ED on 08/17 for nausea and vomiting. GI consulted for diabetic gastroparesis. Diabetic gastroparesis -Patient w/ intractable vomiting and nausea and previously seen by Dr. Bliss last Jun 2018 with the same symptoms -liquid diet, advance as tolerated -reglan 10 mg IV q6h, increased dose to 15 mg -Lipase, amylase wnl Hypokalemia -pt w/ hypokalemia likely 2/2 vomiting -on IVF w/ 20meq NS at 80cc/h ordered in the ICU on 08/23. -Just ordered 20 meq NaCl PO x 1 as K = 3.1 this morning 08/24. -replete as needed Hx of gastric ulcers -seen previously and on recent EGD on 08/23 -08/[address] Bliss: LA grade C esophagitis, erythematous mucosa of antrum -continue with IV PPI Right foot cut -management per podiatry -pending MRI to r/o OM -if no evidence of OM (unlikely per podiatry), will recommend to discontinue zosyn as it could exacerbate nausea/vomiting 2/2 diabetic gastroparesis
--- NOTE | 2018-08-24 13:19 | CP.PCM.PN ---
Subjective - Date & Time of Evaluation Date of Evaluation: 08/24/18 Time of Evaluation: 13:16 - Subjective Subjective: Podiatry Progress Note -Dr. Lamb 58 y/o male seen at bedside for right foot diabetic ulcer. Reports that the N/V has improved but still present. Denies pain to the right foot. Denies F/C/CP/SOB. No other pedal complains at this time. Objective - Vital Signs/Intake and Output Vital Signs (last 24 hours): Temp Pulse Resp BP Pulse Ox 98.0 F 91 H 20 140/80 96 08/24/18 07:10 08/24/18 07:10 08/24/18 07:10 08/24/18 07:10 08/24/18 07:10 Intake and Output: 08/24/18 08/24/18 06:59 18:59 Intake Total 1610 Output Total 1200 Balance 410 - Medications Medications: Current Medications Al Hydrox/Mg Hydrox/Simethicone (Maalox 30 Ml) 30 ml PO QID [facility] Last Admin: 08/24/18 10:41 Dose: 30 ml Dextrose (Dextrose 50% Inj) 0 ml IV STAT PRN; Protocol PRN Reason: Hypoglycemia Protocol Dextrose (Glutose 15) 0 gm PO ONCE PRN; Protocol PRN Reason: Hypoglycemia Protocol Glucagon (Glucagen Diagnostic Kit) 0 mg IM STAT PRN; Protocol PRN Reason: Hypoglycemia Protocol Heparin Sodium (Porcine) (Heparin) 5,000 units SC Q12 [facility] Last Admin: 08/24/18 10:41 Dose: 5,000 units Piperacillin Sod/Tazobactam Sod (Zosyn 3.375 Gm Iv Premix) 3.375 gm in 50 mls @ 100 mls/hr IVPB Q6H [facility]; Protocol Last Admin: 08/24/18 08:04 Dose: 100 mls/hr Dextrose (Dextrose 5% In Water 1000 Ml) 1,000 mls @ 0 mls/hr IV .Q0M PRN; Protocol PRN Reason: Hypoglycemia Protocol Potassium Chloride 20 meq/ (Sodium Chloride) 1,010 mls @ 80 mls/hr IV .[id number] [facility] Last Admin: 08/24/18 12:26 Dose: 80 mls/hr Insulin Aspart (Novolog Mix 70/30 (70/30 Units/Ml)) 10 units SC [facility] Last Admin: 08/23/18 22:03 Dose: 10 units Insulin Aspart (Novolog Mix 70/30 (70/30 Units/Ml)) 20 units SC QAM [facility] Last Admin: 08/24/18 10:00 Dose: 20 units Insulin Human Regular (Novolin R) 0 unit SC ACHS [facility]; Protocol Last Admin: 08/24/18 12:25 Dose: Not Given Metoclopramide HCl (Reglan) 10 mg IVP Q6H [facility] Last Admin: 08/24/18 08:01 Dose: 10 mg Pantoprazole Sodium (Protonix Inj) 40 mg IVP DAILY [facility] Last Admin: 08/24/18 10:41 Dose: 40 mg Potassium Chloride (K-Dur 20 Meq Er Tab) 20 meq PO DAILY [facility] Rosuvastatin Calcium (Crestor) 5 mg PO HS [facility] Last Admin: 08/23/18 22:03 Dose: 5 mg - Labs Labs: 08/24/18 11:41 08/24/18 11:41 PT 10.0 SECONDS (9.7-12.2) 08/22/18 12:31 INR 0.9 08/22/18 12:31 APTT 25 SECONDS (21-34) 08/22/18 12:31 - Constitutional Appears: Well, Non-toxic, No Acute Distress - Extremities Exam Additional comments: RLE focused exam Vasc: DP/PT pulses fully palpable 2/4 B/L. Skin temperature warm to warm from proximal to distal. CFT < 3 seconds to all digits B/L. No edema noted B/L Neuro: Epicritic and protective sensation grossly diminished B/L Derm: 1 cm x 2 cm stable eschar noted to medial arch of right foot. No fransisco wound erythema, malodor, drainage, fluctuance or other clinical signs of infection noted MSK: No pain to ulceration site. No gross deformities noted. ROM WNL at all major joints. MMT 5/5 in all major muscle groups - Neurological Exam Neurological Exam: Alert, Awake, Oriented x3 - Psychiatric Exam Psychiatric exam: Normal Affect, Normal Mood Assessment and Plan - Assessment and Plan (Free Text) Assessment: 58 y/o male seen at bedside for right diabetic foot ulceration Plan: Patient seen and evaluated with Dr. Lamb Afebrile, WBCs: 11.4 Continue abx per ID Wound dressed with medi honey, DSD X-rays R foot show no acute osseous findings, no evidence of periosteal rxn or bony erosions MRI ordered to r/o OM - wound is very superficial, less likely patient has direct OM DIA/PVR studies pending No plan for surgical intervention at this time Stable from podiatry standpoint Podiatry will continue to follow while patient in house
[2018-08-24] MEDS ORDERED: Potassium Chloride 20 mEq ER Tab PO SCH (13:30)
[2018-08-24] MEDS ORDERED: METOCLOPRAMIDE IVPB SCH (14:00)
[2018-08-24] MEDS ORDERED: SODIUM CHLORIDE 0.9% IVPB SCH (14:00)
[2018-08-24] MEDS ORDERED: Potassium Phosphate 15 MMOLE in Sodium Chloride 0.9% 250 ML IV ONE (15:30)
[2018-08-24] MEDS ORDERED: Potassium Phosphate 30 MMOLE in Sodium Chloride 0.9% 500 ML IV ONE (16:00)
[2018-08-24] MEDS ORDERED: Morphine 4 MG/ML VIAL IV PRN (18:00)
[2018-08-24] MEDS ORDERED: Morphine 4 MG/ML VIAL IV SCH (20:00)
--- NOTE | 2018-08-24 22:06 | CP.PCM.PN ---
Subjective - Date & Time of Evaluation Date of Evaluation: 08/24/18 Time of Evaluation: 07:20 - Subjective Subjective: dictated Objective - Vital Signs/Intake and Output Vital Signs (last 24 hours): Temp Pulse Resp BP Pulse Ox 98.0 F 91 H 20 140/80 96 08/24/18 07:10 08/24/18 07:10 08/24/18 07:10 08/24/18 07:10 08/24/18 07:10 Intake and Output: 08/24/18 08/25/18 18:59 06:59 Intake Total 1330 Output Total 1999 Balance -670 - Medications Medications: Current Medications Dextrose (Dextrose 50% Inj) 0 ml IV STAT PRN; Protocol PRN Reason: Hypoglycemia Protocol Dextrose (Glutose 15) 0 gm PO ONCE PRN; Protocol PRN Reason: Hypoglycemia Protocol Glucagon (Glucagen Diagnostic Kit) 0 mg IM STAT PRN; Protocol PRN Reason: Hypoglycemia Protocol Heparin Sodium (Porcine) (Heparin) 5,000 units SC Q12 [facility] Last Admin: 08/24/18 21:15 Dose: Not Given Piperacillin Sod/Tazobactam Sod (Zosyn 3.375 Gm Iv Premix) 3.375 gm in 50 mls @ 100 mls/hr IVPB Q6H [facility]; Protocol Last Admin: 08/24/18 19:31 Dose: Not Given Dextrose (Dextrose 5% In Water 1000 Ml) 1,000 mls @ 0 mls/hr IV .Q0M PRN; Protocol PRN Reason: Hypoglycemia Protocol Potassium Chloride 20 meq/ (Sodium Chloride) 1,010 mls @ 80 mls/hr IV .[id number] [facility] Last Admin: 08/24/18 17:07 Dose: Not Given Potassium Phosphate 30 mmole/ (Sodium Chloride) 510 mls @ 63 mls/hr IV ONCE ONE Stop: 08/25/18 00:05 Last Admin: 08/24/18 19:18 Dose: 63 mls/hr Insulin Aspart (Novolog Mix 70/30 (70/30 Units/Ml)) 10 units SC HS [facility] Last Admin: 08/24/18 21:27 Dose: Not Given Insulin Aspart (Novolog Mix 70/30 (70/30 Units/Ml)) 20 units SC QAM [facility] Last Admin: 08/24/18 10:00 Dose: 20 units Insulin Human Regular (Novolin R) 0 unit SC ACHS [facility]; Protocol Last Admin: 08/24/18 21:19 Dose: Not Given Morphine Sulfate (Morphine) 2 mg IV Q4 PRN PRN Reason: pain Last Admin: 08/24/18 18:21 Dose: 2 mg Pantoprazole Sodium (Protonix Inj) 40 mg IVP DAILY [facility] Last Admin: 08/24/18 10:41 Dose: 40 mg Rosuvastatin Calcium (Crestor) 5 mg PO HS [facility] Last Admin: 08/24/18 21:13 Dose: 5 mg - Labs Labs: 08/24/18 11:41 08/24/18 11:41 PT 10.0 SECONDS (9.7-12.2) 08/22/18 12:31 INR 0.9 08/22/18 12:31 APTT 25 SECONDS (21-34) 08/22/18 12:31
[2018-08-25] MEDS: Piperacill/Tazo 3.375gm in Dex 3.375 GM/50 ML BAG IVPB SCH ×3 (03:00→10:23)
[2018-08-25] MEDS: Potassium Chloride 20 MEQ in Sodium Chloride 0.45% 1,000 ML IV SCH ×2 (05:17→17:29)
[2018-08-25 06:24] LABS: BASO # 0.1 K/uL (0.0-0.2); BASO % 0.9 % (0.0-2.0); EOS # 0.1 K/uL (0.0-0.7); EOS % 1.1 % (0.0-4.0); LYMPH # 1.2 K/uL (1.0-4.3); LYMPH % 19.8 % (20.0-40.0); MEAN CELL VOLUME 83.8 fL (80.0-94.0); MEAN CORPUSCULAR HGB CONC 33.4 g/dL (33.0-37.0); MONO # 0.5 K/uL (0.0-0.8); MONO % 8.5 % (0.0-10.0); NEUT # 4.3 K/uL (1.8-7.0); NEUT % 69.7 % (50.0-75.0); NRBC % 0.1 % (0.0-2.0); RBC 4.1 Mil/uL (4.40-5.90); RED CELL DISTRIBUTION WIDTH 13.3 % (11.5-14.5); WHITE BLOOD COUNT 6.2 K/uL (4.8-10.8)
[2018-08-25 06:43] LABS: ALB/GLOB RATIO 1.3 (1.0-2.1); ALT/SGPT 20 U/L (21-72); AST/SGOT 38 U/L (17-59); BLOOD UREA NITROGEN 4 mg/dL (9-20); CALCIUM 7.9 mg/dl (8.6-10.4); GFR NON-AFRICAN AMERICAN > 60
[2018-08-25 07:49] LABS: HEMOGLOBIN 11.5 g/dL (12.0-18.0)
--- NOTE | 2018-08-25 09:15 | PN ---
DATE: 08/25/2018 SUBJECTIVE: The patient has severe hiccups. He is constantly hiccuping. He is in distress. He is not able to tolerate diet. He is n.p.o. He is afebrile. No shortness of breath. PHYSICAL EXAMINATION: VITAL SIGNS: Blood pressure 130/69, pulse 83, respiratory rate 20, temperature 97.8. LUNGS: Clear. CARDIOVASCULAR: S1 and S2. Regular. ABDOMEN: Soft. Bowel sounds are exaggerated. ASSESSMENT: 1. Status post diabetic ketoacidosis. 2. Intractable hiccups. 3. Dehydration, hypokalemia. 4. Diabetic wound. PLAN: I agree with patient care and give patient an injection of Thorazine. We will monitor the patient and then we will assess the patient. Giovanni Vaughan MD
[2018-08-25] MEDS ORDERED: Gadodiamide 287 mg/ml 20 ml IV ONE (09:45)
--- NOTE | 2018-08-25 09:57 | PN ---
DATE: 08/23/2018 SUBJECTIVE: The patient is seen and examined. The patient's DKA has been resolved. He is on IV fluids, potassium supplementation, and he is improving. He is having on and off hiccups and burping, and he denies any fever, chills, or rigors. He denies any cough or sore throat. PHYSICAL EXAMINATION: VITAL SIGNS: Blood pressure 133/77, pulse 78, respiratory rate 20, and temperature 98.2. LUNGS: Clear. No rales. No rhonchi. CARDIOVASCULAR SYSTEM: S1 and S2, regular. ABDOMEN: Soft. Bowel sounds are exaggerated. ASSESSMENT: 1. Intractable hiccups. 2. Status post diabetic ketoacidosis, resolving. 3. Hypokalemia. 4. Dehydration. PLAN: Continue IV fluids. Giovanni Vaughan MD
[2018-08-25] MEDS: (Novolin R) Insulin Human Regular 100 units/ml vial SC SCH ×4 (10:01→22:06)
[2018-08-25] MEDS: SILVASORB ANTIMICROBIAL WOUND GEL TOP SCH (10:03)
[2018-08-25] MEDS: (Novolog Mix 70/30) Insulin Aspart/Insulin Aspar 100 units/ml SC SCH ×2 (10:30→21:10)
--- NOTE | 2018-08-25 12:49 | CP.PCM.PN ---
Subjective - Date & Time of Evaluation Date of Evaluation: 08/25/18 Time of Evaluation: 12:47 - Subjective Subjective: Podiatry Progress Note -Dr. Lamb 58 y/o male seen at bedside with Dr. Lamb for right foot diabetic ulcer. Reports that the N/V has improved and he is feeling a lot better today. Denies pain to the right foot. Denies F/C/CP/SOB. No other pedal complains at this time. Objective - Vital Signs/Intake and Output Vital Signs (last 24 hours): Temp Pulse Resp BP Pulse Ox 98.3 F 70 20 131/88 99 08/25/18 07:10 08/25/18 07:10 08/25/18 07:10 08/25/18 07:10 08/25/18 07:10 Intake and Output: 08/25/18 08/25/18 06:59 18:59 Intake Total 940 Output Total 1300 Balance -360 - Medications Medications: Current Medications Chlorpromazine (Thorazine) 25 mg IM Q6H PRN PRN Reason: nausea and vomiting Dextrose (Dextrose 50% Inj) 0 ml IV STAT PRN; Protocol PRN Reason: Hypoglycemia Protocol Dextrose (Glutose 15) 0 gm PO ONCE PRN; Protocol PRN Reason: Hypoglycemia Protocol Glucagon (Glucagen Diagnostic Kit) 0 mg IM STAT PRN; Protocol PRN Reason: Hypoglycemia Protocol Heparin Sodium (Porcine) (Heparin) 5,000 units SC Q12 [facility] Last Admin: 08/25/18 10:00 Dose: Not Given Dextrose (Dextrose 5% In Water 1000 Ml) 1,000 mls @ 0 mls/hr IV .Q0M PRN; Protocol PRN Reason: Hypoglycemia Protocol Potassium Chloride 20 meq/ (Sodium Chloride) 1,010 mls @ 80 mls/hr IV .[id number] [facility] Last Admin: 08/25/18 05:17 Dose: Not Given Insulin Aspart (Novolog Mix 70/30 (70/30 Units/Ml)) 10 units SC HS [facility] Last Admin: 08/24/18 21:27 Dose: Not Given Insulin Aspart (Novolog Mix 70/30 (70/30 Units/Ml)) 20 units SC QAM [facility] Last Admin: 08/25/18 10:30 Dose: 20 units Insulin Human Regular (Novolin R) 0 unit SC ACHS [facility]; Protocol Last Admin: 08/25/18 11:49 Dose: 10 unit Lorazepam (Ativan) 1 mg IVP BID [facility] Last Admin: 08/25/18 12:23 Dose: Not Given Morphine Sulfate (Morphine) 2 mg IV Q4 PRN PRN Reason: pain Last Admin: 08/24/18 18:21 Dose: 2 mg Pantoprazole Sodium (Protonix Inj) 40 mg IVP DAILY [facility] Last Admin: 08/25/18 10:23 Dose: 40 mg Rosuvastatin Calcium (Crestor) 5 mg PO HS [facility] Last Admin: 08/24/18 21:13 Dose: 5 mg - Labs Labs: 08/25/18 06:17 08/25/18 06:17 PT 10.0 SECONDS (9.7-12.2) 08/22/18 12:31 INR 0.9 08/22/18 12:31 APTT 25 SECONDS (21-34) 08/22/18 12:31 - Constitutional Appears: Well, Non-toxic, No Acute Distress - Extremities Exam Additional comments: RLE focused exam Vasc: DP/PT pulses fully palpable 2/4 B/L. Skin temperature warm to warm from proximal to distal. CFT < 3 seconds to all digits B/L. No edema noted B/L Neuro: Epicritic and protective sensation grossly diminished B/L Derm: 1 cm x 2 cm stable eschar noted to medial arch of right foot. No fransisco wound erythema, malodor, drainage, fluctuance or other clinical signs of infection noted MSK: No pain to ulceration site. No gross deformities noted. ROM WNL at all major joints. MMT 5/5 in all major muscle groups - Neurological Exam Neurological Exam: Alert, Awake, Oriented x3 - Psychiatric Exam Psychiatric exam: Normal Affect, Normal Mood Assessment and Plan - Assessment and Plan (Free Text) Assessment: 58 y/o male seen at bedside for right diabetic foot ulceration Plan: Patient seen and evaluated with Dr. Lamb Afebrile, WBCs: 6.2 Continue abx per ID Wound dressed with JADEN tony X-rays R foot show no acute osseous findings, no evidence of periosteal rxn or bony erosions MRI ordered to r/o OM - official read pending; wound is very superficial, less likely patient has direct OM DIA/PVR studies pending No plan for surgical intervention at this time Stable from podiatry standpoint Podiatry will continue to follow while patient in house
--- NOTE | 2018-08-25 13:20 | MRI ---
MRI right forefoot History: Ulceration. Evaluate for osteomyelitis. Comparison: X-ray dated 08/20/2018 TECHNIQUE: Multi-echo multiplanar sequences were performed through the right forefoot without and with the use of intravenous contrast. Findings: Study somewhat limited secondary to patient motion artifact. Failure fat suppression on the post-contrast sequences, also limit evaluation. Resection of the 1st digit to the mid shaft of the 1st proximal phalanx. Productive bone formation with some patchy increased STIR signal seen at the resection margin of the 1st proximal phalanx as demonstrated on series 4, image 16 with some faint patchy decreased T1 signal. These changes are nonspecific and may be the sequelae of postsurgical changes. Some minimal early acute inflammatory and or infectious changes cannot entirely be excluded at this level. Clinical correlation. Small amount of fluid at the 1st MTP joint space. Degenerative changes at the sesamoid bones with some sclerosis with decreased T1 signal. Resection of the 1st flexor tendon as demonstrated on series 14 image 13 with some thickening and/or fluid distension the proximal tendon tract as seen on series 10 image 19. Clinical correlation. Resection of the 2nd digit to the metatarsal head. Minimal increased STIR signal seen at the head of the 2nd metatarsal bone as demonstrated on series 4, image 14 without gross corresponding T1 signal abnormality, nonspecific. Resection of 3rd digit to the base the 3rd middle phalanx. Minimal nonspecific reactive edema seen within the 4th proximal phalanx. Clinical correlation. Reticulation and edema seen within the dorsal soft tissues. Mild increased signal seen at the level of the Lisfranc ligament which may represent a low grade sprain. Degenerative changes noted at the talonavicular joint space with some mild osteochondral change seen within the distal navicular bone. Impression: Study somewhat limited secondary to patient motion artifact. Failure fat suppression on the post-contrast sequences, also limit evaluation. 1. Resection of the 1st digit to the mid shaft of the 1st proximal phalanx. Productive bone formation with some patchy increased STIR signal seen at the resection margin of the 1st proximal phalanx as demonstrated on series 4, image 16 with some faint patchy decreased T1 signal. These changes are nonspecific and may be the sequelae of postsurgical changes. Some minimal early acute inflammatory and or infectious changes cannot entirely be excluded at this level. Clinical correlation. 2. Small amount of fluid at the 1st MTP joint space. 3. Degenerative changes at the sesamoid bones with some sclerosis with decreased T1 signal. 4. Resection of the 1st flexor tendon as demonstrated on series 14 image 13 with some thickening and/or fluid distension the proximal tendon tract as seen on series 10 image 19. Clinical correlation. 5. Resection of the 2nd digit to the metatarsal head. Minimal increased STIR signal seen at the head of the 2nd metatarsal bone as demonstrated on series 4, image 14 without gross corresponding T1 signal abnormality, nonspecific. 6. Resection of 3rd digit to the base the 3rd middle phalanx. 7. Minimal nonspecific reactive edema seen within the 4th proximal phalanx. Clincal correlation. 8. Reticulation and edema seen within the dorsal soft tissues. 9. Mild increased signal seen at the level of the Lisfranc ligament which may represent a low grade sprain. 10. Degenerative changes noted at the talonavicular joint space with some mild osteochondral change seen within the distal navicular bone.
--- NOTE | 2018-08-25 14:22 | CP.PCM.PN ---
Subjective - Date & Time of Evaluation Date of Evaluation: 08/25/18 Time of Evaluation: 14:18 - Subjective Subjective: GI Progress Note for Dr. Bliss Patient seen and examined at bedside this afternoon. Per roommate, patient's recurrent vomiting has stopped completely since his thorazine x 1 last night. Patient states he feels significantly better. He states he is ready to advance his diet. Denies nausea, vomiting, chest pain, SOB, abd pain. Objective - Vital Signs/Intake and Output Vital Signs (last 24 hours): Temp Pulse Resp BP Pulse Ox 98.3 F 70 20 131/88 99 08/25/18 07:10 08/25/18 07:10 08/25/18 07:10 08/25/18 07:10 08/25/18 07:10 Intake and Output: 08/25/18 08/25/18 06:59 18:59 Intake Total 940 Output Total 1300 Balance -360 - Medications Medications: Current Medications Chlorpromazine (Thorazine) 25 mg IM Q6H PRN PRN Reason: nausea and vomiting Dextrose (Dextrose 50% Inj) 0 ml IV STAT PRN; Protocol PRN Reason: Hypoglycemia Protocol Dextrose (Glutose 15) 0 gm PO ONCE PRN; Protocol PRN Reason: Hypoglycemia Protocol Glucagon (Glucagen Diagnostic Kit) 0 mg IM STAT PRN; Protocol PRN Reason: Hypoglycemia Protocol Heparin Sodium (Porcine) (Heparin) 5,000 units SC Q12 [facility] Last Admin: 08/25/18 10:00 Dose: Not Given Dextrose (Dextrose 5% In Water 1000 Ml) 1,000 mls @ 0 mls/hr IV .Q0M PRN; Protocol PRN Reason: Hypoglycemia Protocol Potassium Chloride 20 meq/ (Sodium Chloride) 1,010 mls @ 80 mls/hr IV .[id number] [facility] Last Admin: 08/25/18 05:17 Dose: Not Given Insulin Aspart (Novolog Mix 70/30 (70/30 Units/Ml)) 10 units SC HS [facility] Last Admin: 08/24/18 21:27 Dose: Not Given Insulin Aspart (Novolog Mix 70/30 (70/30 Units/Ml)) 20 units SC QAM [facility] Last Admin: 08/25/18 10:30 Dose: 20 units Insulin Human Regular (Novolin R) 0 unit SC ACHS [facility]; Protocol Last Admin: 08/25/18 11:49 Dose: 10 unit Lorazepam (Ativan) 1 mg IVP BID [facility] Last Admin: 08/25/18 12:23 Dose: Not Given Morphine Sulfate (Morphine) 2 mg IV Q4 PRN PRN Reason: pain Last Admin: 08/24/18 18:21 Dose: 2 mg Pantoprazole Sodium (Protonix Inj) 40 mg IVP DAILY [facility] Last Admin: 08/25/18 10:23 Dose: 40 mg Rosuvastatin Calcium (Crestor) 5 mg PO HS [facility] Last Admin: 08/24/18 21:13 Dose: 5 mg - Labs Labs: 08/25/18 06:17 08/25/18 06:17 PT 10.0 SECONDS (9.7-12.2) 08/22/18 12:31 INR 0.9 08/22/18 12:31 APTT 25 SECONDS (21-34) 08/22/18 12:31 - Constitutional Appears: Well, Non-toxic - Head Exam Head Exam: ATRAUMATIC, NORMAL INSPECTION - Neck Exam Neck Exam: Normal Inspection - Respiratory Exam Respiratory Exam: NORMAL BREATHING PATTERN - GI/Abdominal Exam GI & Abdominal Exam: Soft, Normal Bowel Sounds - Neurological Exam Neurological Exam: Alert, Awake, Oriented x3 - Psychiatric Exam Psychiatric exam: Normal Affect, Normal Mood - Skin Skin Exam: Dry, Intact, Normal Color, Warm Assessment and Plan - Assessment and Plan (Free Text) Assessment: 58 y/o male with PMHx of DM presented to the ED on 08/17 for nausea and vomiting. GI consulted for diabetic gastroparesis. Diabetic gastroparesis -Patient w/ intractable vomiting and nausea and previously seen by Dr. Bliss last Jun 2018 with the same symptoms -advancing diet to soft diet from liquid -reglan 15 mg IV q6h, can decrease to 10 mg if patient able to tolerate diet advancement -added erythromycin and ativan scheduled - continue to monitor -Lipase, amylase wnl Hypokalemia -pt w/ hypokalemia likely 2/2 vomiting -replete as needed Hx of gastric ulcers -seen previously and on recent EGD on 08/23 -08/[address] Bliss: LA grade C esophagitis, erythematous mucosa of antrum -continue with IV PPI Right foot laceration -management per podiatry -pending MRI to r/o OM -if no evidence of OM (unlikely per podiatry), will recommend to discontinue zosyn as it could exacerbate nausea/vomiting 2/2 diabetic gastroparesis case d/w Dr. Izaiah Duque PGY1
[2018-08-25] MEDS: LIPASE/PROTEASE/AMYLASE 4,200 U ECC PO SCH (17:28)
--- NOTE | 2018-08-25 21:36 | CP.PCM.PN ---
Subjective - Date & Time of Evaluation Date of Evaluation: 08/25/18 Time of Evaluation: 09:00 - Subjective Subjective: dictated Objective - Vital Signs/Intake and Output Vital Signs (last 24 hours): Temp Pulse Resp BP Pulse Ox 97.4 F L 93 H 20 120/79 96 08/25/18 16:00 08/25/18 16:00 08/25/18 16:00 08/25/18 16:00 08/25/18 16:00 - Medications Medications: Current Medications Chlorpromazine (Thorazine) 25 mg IM Q6H PRN PRN Reason: nausea and vomiting Dextrose (Dextrose 50% Inj) 0 ml IV STAT PRN; Protocol PRN Reason: Hypoglycemia Protocol Dextrose (Glutose 15) 0 gm PO ONCE PRN; Protocol PRN Reason: Hypoglycemia Protocol Glucagon (Glucagen Diagnostic Kit) 0 mg IM STAT PRN; Protocol PRN Reason: Hypoglycemia Protocol Heparin Sodium (Porcine) (Heparin) 5,000 units SC Q12 [facility] Last Admin: 08/25/18 21:09 Dose: 5,000 units Dextrose (Dextrose 5% In Water 1000 Ml) 1,000 mls @ 0 mls/hr IV .Q0M PRN; Protocol PRN Reason: Hypoglycemia Protocol Potassium Chloride 20 meq/ (Sodium Chloride) 1,010 mls @ 80 mls/hr IV .[id number] [facility] Last Admin: 08/25/18 17:29 Dose: 80 mls/hr Insulin Aspart (Novolog Mix 70/30 (70/30 Units/Ml)) 10 units SC HS [facility] Last Admin: 08/25/18 21:10 Dose: 10 units Insulin Aspart (Novolog Mix 70/30 (70/30 Units/Ml)) 20 units SC QAM [facility] Last Admin: 08/25/18 10:30 Dose: 20 units Insulin Human Regular (Novolin R) 0 unit SC ACHS [facility]; Protocol Last Admin: 08/25/18 17:29 Dose: 2 unit Lorazepam (Ativan) 1 mg IVP BID [facility] Last Admin: 08/25/18 17:29 Dose: 1 mg Morphine Sulfate (Morphine) 2 mg IV Q4 PRN PRN Reason: pain Last Admin: 08/24/18 18:21 Dose: 2 mg Pantoprazole Sodium (Protonix Inj) 40 mg IVP DAILY [facility] Last Admin: 08/25/18 10:23 Dose: 40 mg Rosuvastatin Calcium (Crestor) 5 mg PO HS [facility] Last Admin: 08/25/18 21:09 Dose: 5 mg - Labs Labs: 08/25/18 06:17 08/25/18 06:17 PT 10.0 SECONDS (9.7-12.2) 08/22/18 12:31 INR 0.9 08/22/18 12:31 APTT 25 SECONDS (21-34) 08/22/18 12:31
--- NOTE | 2018-08-25 23:43 | CON ---
DATE: 08/25/2018 CHIEF COMPLAINT AND REASON FOR CONSULTATION: The patient is referred by Dr. Vaughan for evaluation. The patient complains of persistent nausea and vomiting and seems to be anxious. The patient has history of alcohol abuse. HISTORY OF PRESENT ILLNESS: This is a case of 58-year-old male who is a patient of Dr. Vaughan with history of diabetes for many years as well as hypertension as well as gastritis. The patient was admitted here for control of sugar as well as nausea and vomiting. The patient referred as the patient has been complaining of persistent nausea and vomiting. He was earlier given Reglan and then given Thorazine. The patient reports that before he came to the hospital he was drinking a lot. He said he was celebrating a birthday green party of his cousin and drank a lot of alcohol. When the patient came to the hospital, his blood sugar was high. Today, he seems much better and he was given Thorazine IM and taken off Reglan but still has often the nausea. Review of his medication, the patient has been given erythromycin for his GI problems and he is also on a liquid diet. The patient states while he wants to continue with the Thorazine he was also given Ativan. Today, he is less somatic and anxious. He was able to eat and wants that to be advanced. PAST PSYCHIATRIC HISTORY: As stated, history of alcohol abuse but not taking any antidepressant at this time. MEDICAL HISTORY: The patient has history of gastritis, diabetic foot ulcer in the right foot, history of ascites, intractable vomiting, hyperglycemia, gangrene of the toes, right foot. ALLERGIES: THE PATIENT HAS NO KNOWN ALLERGIES. DRUG AND ALCOHOL HISTORY: The patient has a history of alcohol abuse. PSYCHOSOCIAL HISTORY: He is a patient of Dr. Vaughan for many years. PHYSICAL EXAMINATION VITAL SIGNS: Temperature is 98.3, heart rate 70, blood pressure 131/88, respirations 20, oxygen saturation is 99%. LIST OF CURRENT MEDICATIONS: The patient is on Ativan 1 mg IVP b.i.d. The patient is on erythromycin, heparin, morphine IV every 4 hour p.r.n. and then the patient is on pantoprazole and Thorazine. LABORATORY DATA: Review of his labs, his blood sugar is still high 444, creatinine 0.9. REVIEW OF SYSTEMS: GENERAL: He is alert, oriented x3, less anxious and somatic. He states he is feeling much better with the Thorazine. The patient wants his diet to be advanced. He did admit that he was drinking heavily before coming to the hospital. He said he was drinking beer and some other hard liquors. SKIN: No diaphoresis. HEENT: No headache. No dizziness. NECK: Supple. RESPIRATORY: No dyspnea. CARDIOVASCULAR: No chest pain. GASTROINTESTINAL: The patient reports some relief with the nausea and vomiting. He is able to tolerate his diet. EXTREMITIES: The patient moving extremities, still complaining of pain in his lower extremities. The patient has diabetic foot ulcer. NEUROLOGIC: Alert, oriented x3. GENITOURINARY: No urinary complaint. MENTAL STATUS EXAMINATION: A very tall male of about 6 feet 5 inches, weighs 180 pounds, alert and oriented x3. The patient is still anxious, somatic. Affect is reactive. Speech is spontaneous. Thought process is coherent. Thought content, the patient wants to continue the Thorazine p.r.n. No psychosis. No suicidal or homicidal ideation. The patient is advised not to drink especially he is a diabetic, especially also with his medical problems, his blood sugar is still poorly controlled. Attention and memory seem to be fair. Insight and judgment are fair. Impulse control is fair. IMPRESSION: History of mood disorder secondary to medical problems as well as history of alcohol abuse. PLAN AND RECOMMENDATION: The patient is seen, meds reviewed. We will continue the Ativan 1 mg IVP b.i.d. for anxiety and we will give him the Thorazine 25 mg IM every 6 hours p.r.n. for nausea and vomiting and then we will try to hold the erythromycin for now. The patient is complaining of GI upset and erythromycin is a gastric irritant especially with somebody who has history of alcohol abuse and the patient is not eating well as this time. Also, the patient may be given erythromycin for gastroparesis, for now the patient is having some GI complaints and we will try to hold this temporarily. Hermelindo Vickers MD
--- NOTE | 2018-08-26 03:09 | PN ---
DATE: 08/25/2018 SUBJECTIVE: The patient's hiccup responded to Thorazine. He feels better. He is calm. He is on diet. He started solid diet. PHYSICAL EXAMINATION: VITAL SIGNS: Blood pressure 120/79, pulse 93, respiratory rate 20, and temperature 97.4. LUNGS: Clear. ABDOMEN: Soft. Nontender. Bowel sounds are positive. CENTRAL NERVOUS SYSTEM: Awake, alert, and oriented x3. ASSESSMENT: 1. Intractable hiccups, resolved. 2. Dehydration, resolved. 3. Poorly controlled diabetes. PLAN: Continue current medication. Continue Thorazine. Proceed diet. Monitor the patient. Monitor electrolytes. Giovanni Vaughan MD
[2018-08-26 04:22] VITALS: BP 162/89; PULSE 82; TEMP 98.8; O2SAT 98
[2018-08-26] MEDS: Potassium Chloride 20 MEQ in Sodium Chloride 0.45% 1,000 ML IV SCH (06:36)
[2018-08-26 08:03] LABS: ALB/GLOB RATIO 1.2 (1.0-2.1); ALT/SGPT 22 U/L (21-72); AST/SGOT 27 U/L (17-59); BLOOD UREA NITROGEN 5 mg/dL (9-20); CALCIUM 7.9 mg/dl (8.6-10.4); GFR NON-AFRICAN AMERICAN > 60
[2018-08-26] MEDS: (Novolin R) Insulin Human Regular 100 units/ml vial SC SCH (08:25)
[2018-08-26] MEDS: LIPASE/PROTEASE/AMYLASE 4,200 U ECC PO SCH (08:28)
[2018-08-26] MEDS: SILVASORB ANTIMICROBIAL WOUND GEL TOP SCH (09:47)
[2018-08-26] MEDS: (Novolog Mix 70/30) Insulin Aspart/Insulin Aspar 100 units/ml SC SCH (09:47)
--- NOTE | 2018-08-26 12:12 | CP.PCM.PN ---
Subjective - Date & Time of Evaluation Date of Evaluation: 08/26/18 Time of Evaluation: 11:15 - Subjective Subjective: Patient seen today states feels better, hiccups and N/V resolved, tolerating diet no overnight t events reported by RN vss and labs reviewed - stable Objective - Vital Signs/Intake and Output Vital Signs (last 24 hours): Temp Pulse Resp BP Pulse Ox 98.8 F 82 20 162/89 H 98 08/26/18 04:21 08/26/18 04:21 08/26/18 04:21 08/26/18 04:21 08/26/18 04:21 Intake and Output: 08/26/18 08/26/18 06:59 18:59 Intake Total 2160 Balance 2160 - Medications Medications: Current Medications Chlorpromazine (Thorazine) 25 mg IM Q6H PRN PRN Reason: nausea and vomiting Dextrose (Dextrose 50% Inj) 0 ml IV STAT PRN; Protocol PRN Reason: Hypoglycemia Protocol Dextrose (Glutose 15) 0 gm PO ONCE PRN; Protocol PRN Reason: Hypoglycemia Protocol Glucagon (Glucagen Diagnostic Kit) 0 mg IM STAT PRN; Protocol PRN Reason: Hypoglycemia Protocol Dextrose (Dextrose 5% In Water 1000 Ml) 1,000 mls @ 0 mls/hr IV .Q0M PRN; Protocol PRN Reason: Hypoglycemia Protocol Potassium Chloride 20 meq/ (Sodium Chloride) 1,010 mls @ 80 mls/hr IV .[id number] [facility] Last Admin: 08/26/18 06:36 Dose: 80 mls/hr Insulin Aspart (Novolog Mix 70/30 (70/30 Units/Ml)) 10 units SC HS [facility] Last Admin: 08/25/18 21:10 Dose: 10 units Insulin Aspart (Novolog Mix 70/30 (70/30 Units/Ml)) 20 units SC QAM [facility] Last Admin: 08/26/18 09:47 Dose: 20 units Insulin Human Regular (Novolin R) 0 unit SC ACHS [facility]; Protocol Last Admin: 08/26/18 08:25 Dose: 3 unit Lorazepam (Ativan) 1 mg IVP BID [facility] Last Admin: 08/26/18 09:46 Dose: 1 mg Morphine Sulfate (Morphine) 2 mg IV Q4 PRN PRN Reason: pain Last Admin: 08/24/18 18:21 Dose: 2 mg Pantoprazole Sodium (Protonix Inj) 40 mg IVP DAILY [facility] Last Admin: 08/26/18 09:47 Dose: 40 mg Rosuvastatin Calcium (Crestor) 5 mg PO HS [facility] Last Admin: 08/25/18 21:09 Dose: 5 mg - Labs Labs: 08/25/18 06:17 08/26/18 07:43 PT 10.0 SECONDS (9.7-12.2) 08/22/18 12:31 INR 0.9 08/22/18 12:31 APTT 25 SECONDS (21-34) 08/22/18 12:31 Assessment and Plan - Assessment and Plan (Free Text) Assessment: A/P 58 yr old male with pmhx of Diabetes, Gastritis, Gastrointestinal Ulcer, HTN, Hypercholesterolemia admitted with nausea, vomiting, malaise/ hyperglycemia developed DKA during hospital stay and resolved with insulin drip and IVF and BS controlled with current medication , bmp back to normal s/p EGD ( see full report for details) patient tolerating diet well D/W Dr. garibay, cleared for discharge home today and f/u with Dr. Brower office in 1 week discharge plan discussed with nolvia , who understands and agree with plan RX called in to his pharmacy and pt will sampler pickup medication from his pharmacy
--- NOTE | 2018-08-26 20:49 | CP.PCM.CON ---
History of Present Illness - History of Present Illness History of Present Illness: IDDM Past Patient History - Infectious Disease Hx of Infectious Diseases: None - Tetanus Immunizations Tetanus Immunization: Unknown - Past Medical History & Family History Past Medical History?: Yes - Past Social History Smoking Status: Former Smoker - CARDIAC Hx Hypercholesterolemia: Yes Hx Hypertension: Yes - PULMONARY Hx Respiratory Disorders: No - NEUROLOGICAL Hx Neurological Disorder: No - HEENT Hx HEENT Problems: No - RENAL Hx Chronic Kidney Disease: No - ENDOCRINE/METABOLIC Hx Diabetes Mellitus Type 2: Yes - HEMATOLOGICAL/ONCOLOGICAL Hx Blood Disorders: No - INTEGUMENTARY Hx Dermatological Problems: Yes Other/Comment: HX: GANGRENE RIGHT FOOT TOE(GREAT) surgery. 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) surgery - MUSCULOSKELETAL/RHEUMATOLOGICAL Hx Musculoskeletal Disorders: No Hx Falls: No - GASTROINTESTINAL Hx Gastrointestinal Disorders: Yes Hx Gastritis: Yes - GENITOURINARY/GYNECOLOGICAL Hx Genitourinary Disorders: No - PSYCHIATRIC Hx Psychophysiologic Disorder: No Hx Substance Use: No - SURGICAL HISTORY Hx Surgeries: Yes Hx Amputation: Yes Hx Appendectomy: Yes (right 2nd and 3rd toes partially amputated ,and Big toe) Other/Comment: left big toe had some bone removed 7yrs ago - ANESTHESIA Hx Anesthesia: Yes Hx Anesthesia Reactions: No Hx Malignant Hyperthermia: No Meds Home Medications: Home Medication List Medication Instructions Recorded Confirmed Type Blood Sugar Diagnostic [Accu-Chek 1 each MC QID #100 strip 08/26/18 Rx Guide Test Strip] Famotidine [Pepcid] 20 mg PO BID #60 tab 08/26/18 Rx Insulin Aspart/Insulin Aspar 20 units SC ACBD 30 Days unit 08/26/18 Rx [Novolog Mix 70/30 (70/30 units/ml)] Lipase/Protease/Amylase [Pancreaze 4,200 unit PO TIDAC #90 ecc 08/26/[address] 4200 U-10,000 [id number] U] Rosuvastatin Calcium [Crestor] 5 mg PO HS #30 tab 08/26/18 Rx chlorproMAZINE [chlorPROMAZINE HCL] 25 mg PO TID PRN #40 tab 08/26/18 Rx Allergies/Adverse Reactions: Allergies Allergy/AdvReac Type Severity Reaction Status Date / Time No Known Allergies Allergy Verified 08/17/18 18:53 Results - Vital Signs Recent Vital Signs: Last Vital Signs Temp 98.8 F 02/08/19 04:21 Pulse 82 08/26/18 04:21 Resp 20 08/26/18 04:21 BP 162/89 H 08/26/18 04:21 Pulse Ox 98 08/26/18 04:21 - Labs Result Diagrams: 08/25/18 06:17 08/26/18 07:43 Labs: Laboratory Results - last 24 hr 08/25/18 08/26/18 08/26/18 21:25 06:29 07:43 Sodium 133 Potassium 3.9 Chloride 100 Carbon Dioxide 29 Anion Gap 9 L BUN 5 L Creatinine 1.0 Est GFR ( Amer) > 60 Est GFR (Non-Af Amer) > 60 POC Glucose (mg/dL) 208 H 205 H Random Glucose 205 H Calcium 7.9 L Phosphorus 2.6 Magnesium 1.8 Total Bilirubin 0.5 AST 27 ALT 22 Alkaline Phosphatase 79 Total Protein 5.5 L Albumin 3.0 L Globulin 2.5 Albumin/Globulin Ratio 1.2 08/26/18 12:20 Sodium Potassium Chloride Carbon Dioxide Anion Gap BUN Creatinine Est GFR ( Amer) Est GFR (Non-Af Amer) POC Glucose (mg/dL) 337 H Random Glucose Calcium Phosphorus Magnesium Total Bilirubin AST ALT Alkaline Phosphatase Total Protein Albumin Globulin Albumin/Globulin Ratio Assessment & Plan (1) Diabetes mellitus, insulin dependent (IDDM), uncontrolled Assessment and Plan: Endocrine consult reason for consult: uncontrolled diabetes , consult request was found by chance on endocrine consult list while evaluating another consult , came to see pt. today @ 8am Source: patient and chart review Nikolas Espinosa is 58 y/o admitted found with glucose > 500 as per pt. has DM for 23 years (+ ) neuropathy , (-) retinopathy , (-) nephropathy (-) CAD (+ ) PVD s/p right toe amputation , partial amputations of 2 other right toes , present also with right foot ulcer . as per pt. ran out of insulin 4 days prior admission outpatient diabete regimen : novolog 70/30 25 units am & 25 units @ bed time and metformin 1g po bid blood glucose log :180-200 occasional 300 & 90's NO hypoglycemia denies h/o thyroid disorder Allergy NKDA Past medical history:HTN , hyperlipidemia Past surgical history: appendectomy , right toe amputation Psychiatry history: denies Social history: ex- smoking , occasional ETOH use , denies illicit drug use Family history: father with dm ROS: Constitutional: denies fever, tiredness/weakness. HEENT: denies earache, change in voice .Respiratory: denies cough, sob . CVS :no chest pain, no palpitations . Abdomen: no abdominal pain, no nausea /vomiting, no change bowel movement. FOOD SAMPLER : denies light-headedness, dizziness. Extremities: no edema, no tremors. Skin: no itching, no rash , right foot ulcer Physical exam Well-developed AAO x3 , ,NAD VSS HEENT: norm cephalic, atraumatic, no lid lag , no exophthalmos NECK: supple, no palpable lymphadenopathy THYROID: no palpable thyromegaly, not tender CHEST: fair air entry, bilateral, CVS: S1,S2 ABDOMEN: bowel sound present, benign, obese, no wide purple striae , no bruises EXTREMITIES: no edema, clubbing or cyanosis, no palpable hand tremors , right foot with dressing Skin: acanthosis nigricans -lab: tsh 9.3 , a1c 9.3 Assessment: uncontrolled IDDM with neuropathy PVD s/p right toe amputation right leg ulcer hypothyroidism plan : continue Novolog 70/30 10 units with breakfast & 20 units with dinner resume metformin 1g po bid with meals Novoloin R low dose coverage tid & hs obtain thyroid functions & abs pt. was provided with a card with office information for f/u as an out patient Thank you for allowing me to participate in the care of the patient, we will follow with you. Stanley Ferrari # [phone] office Fridays & Saturdays address: [address] [place] [address] ,phone # [phone] ,FAX [phone] Status: Acute (2) Diabetes mellitus with neuropathy Status: Acute (3) 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
--- NOTE | 2018-08-26 21:36 | CP.PCM.DIS ---
Provider - Provider Date of Admission: 08/17/18 20:13 Attending physician: Giovanni Vaughan MD Consults: 08/18/18 08:34 Nursing Referral for Wound Care Routine Comment: Physician Instructions: Reason For Exam: diabetic ulcer right lateral foot 08/19/18 08:14 Gastroenterology Consult Routine Comment: Consulting Provider: Chad Bilss Consulting Physician: Chad Bliss Reason for Consult: uncontrolled vomiting/hiccups 08/19/18 08:17 Podiatry Consult Routine Comment: Consulting Provider: Vaughn Lamb Consulting Physician: Vaughn Lamb Reason for Consult: Rt foot Ulcer 08/21/18 11:32 Endocrinology Consult Routine Comment: Consulting Provider: Stanley Han Consulting Physician: Stanley Han Reason for Consult: dm 08/22/18 09:09 Physician Consult Routine Comment: icu EWVAL Consulting Provider: Lela Patterson Consulting Physician: Lela Patterson Reason for Consult: DKA 08/22/18 09:48 Critical Care Consult Stat Comment: Consulting Provider: Lela Patterson Consulting Physician: Lela Patterson Reason for Consult: DKA 08/24/18 16:18 Psychiatry Consult Routine Comment: Consulting Provider: Hermelindo Guevara Consulting Physician: Hermelindo Guevara Reason for Consult: persistant vomiting an dhiccup , induced ? Time Spent in preparation of Discharge (in minutes): 30 Hospital Course - Lab Results Lab Results: Micro Results 08/23/18 16:52 Naris MRSA Culture (Admit) - Final MRSA NOT DETECTED 08/22/18 12:31 Naris MRSA Culture (Admit) - Final MRSA NOT DETECTED Most Recent Lab Values WBC 6.2 K/uL (4.8-10.8) 08/25/18 06:17 RBC 4.10 Mil/uL (4.40-5.90) L 08/25/18 06:17 Hgb 11.5 g/dL (12.0-18.0) L D 08/25/18 06:17 Hct 34.3 % (35.0-51.0) L 08/25/18 06:17 MCV 83.8 fL (80.0-94.0) 08/25/18 06:17 MCH 28.0 pg (27.0-31.0) 08/25/18 06:17 MCHC 33.4 g/dL (33.0-37.0) 08/25/18 06:17 RDW 13.3 % (11.5-14.5) 08/25/18 06:17 Plt Count 282 K/uL (130-400) D 08/25/18 06:17 MPV 8.0 fL (7.2-11.7) 08/25/18 06:17 Neut % (Auto) 69.7 % (50.0-75.0) 08/25/18 06:17 Lymph % (Auto) 19.8 % (20.0-40.0) L 08/25/18 06:17 [place] % (Auto) 8.5 % (0.0-10.0) 08/25/18 06:17 Eos % (Auto) 1.1 % (0.0-4.0) 08/25/18 06:17 Baso % (Auto) 0.9 % (0.0-2.0) 08/25/18 06:17 Neut # (Auto) 4.3 K/uL (1.8-7.0) 08/25/18 06:17 Lymph # (Auto) 1.2 K/uL (1.0-4.3) 08/25/18 06:17 [place] # (Auto) 0.5 K/uL (0.0-0.8) 08/25/18 06:17 Eos # (Auto) 0.1 K/uL (0.0-0.7) 08/25/18 06:17 Baso # (Auto) 0.1 K/uL (0.0-0.2) 08/25/18 06:17 PT 10.0 SECONDS (9.7-12.2) 08/22/18 12:31 INR 0.9 08/22/18 12:31 APTT 25 SECONDS (21-34) 08/22/18 12:31 Puncture Site Rb 08/23/18 05:30 pCO2 34 mm/Hg (35-45) L 08/23/18 05:30 pO2 93 mm/Hg (80-100) 08/23/18 05:30 HCO3 20.7 mmol/L (21-28) L 08/23/18 05:30 ABG pH 7.36 (7.35-7.45) 08/23/18 05:30 ABG Total CO2 20.2 mmol/L (22-28) L 08/23/18 05:30 ABG O2 Saturation 97.0 % (95-98) 08/23/18 05:30 ABG Base Excess -5.4 mmol/L (-2.0-3.0) L 08/23/18 05:30 Tahd Test Na 08/23/18 05:30 ABG Potassium 3.3 mmol/L (3.6-5.2) L 08/23/18 05:30 VBG pH 7.17 (7.32-7.43) L* 08/22/18 09:30 VBG pCO2 32 mmHg (40-60) L 08/22/18 09:30 VBG HCO3 10.7 mmol/L 08/22/18 09:30 VBG Total CO2 12.7 mmol/L (22-28) L 08/22/18 09:30 VBG O2 Sat (Calc) 38.9 % (40-65) L 08/22/18 09:30 VBG Base Excess -15.7 mmol/L (0.0-2.0) L 08/22/18 09:30 VBG Potassium 3.2 mmol/L (3.6-5.2) L 08/22/18 09:30 A-a O2 Difference 14.0 mm/Hg 08/23/18 05:30 Respiratory Index 0.2 08/23/18 05:30 Sodium 134.0 mmol/l (132-148) 08/23/18 05:30 Chloride 103.0 mmol/L (98-107) 08/23/18 05:30 Glucose 232 mg/dl (75-110) H 08/23/18 05:30 Lactate 0.8 mmol/L (0.7-2.1) 08/23/18 05:30 FiO2 21.0 % 08/23/18 05:30 Crit Value Called To kacey Aguilar,paresh 08/22/18 09:30 Crit Value Called By Caroline wolf, 08/22/18 09:30 Crit Value Read Back Y 08/22/18 09:30 Blood Gas Notified Time 940 08/22/18 09:30 Sodium 133 mmol/L (132-148) 08/26/18 07:43 Potassium 3.9 mmol/L (3.6-5.2) 08/26/18 07:43 Chloride 100 mmol/L (98-107) 08/26/18 07:43 Carbon Dioxide 29 mmol/L (22-30) 08/26/18 07:43 Anion Gap 9 (10-20) L 08/26/18 07:43 BUN 5 mg/dL (9-20) L 08/26/18 07:43 Creatinine 1.0 mg/dL (0.8-1.5) 08/26/18 07:43 Est GFR ( Amer) > 60 08/26/18 07:43 Est GFR (Non-Af Amer) > 60 08/26/18 07:43 POC Glucose (mg/dL) 337 mg/dL (65-110) H 08/26/18 12:20 Random Glucose 205 mg/dL (75-110) H 08/26/18 07:43 Hemoglobin A1c 9.3 % (4.2-6.5) H 08/18/18 11:06 Lactic Acid 1.8 mmol/L (0.7-2.1) 08/22/18 09:30 Calcium 7.9 mg/dl (8.6-10.4) L 08/26/18 07:43 Phosphorus 2.6 mg/dL (2.5-4.5) 08/26/18 07:43 Magnesium 1.8 mg/dL (1.6-2.3) 08/26/18 07:43 Total Bilirubin 0.5 mg/dL (0.2-1.3) 08/26/18 07:43 Direct Bilirubin 0.7 mg/dL (0.0-0.4) H 08/19/18 06:51 AST 27 U/L (17-59) 08/26/18 07:43 ALT 22 U/L (21-72) 08/26/18 07:43 Alkaline Phosphatase 79 U/L (38-126) 08/26/18 07:43 Troponin I < 0.0120 ng/mL (0.00-0.120) 08/17/18 19:21 NT-Pro-B Natriuret Pep 355 pg/mL (0-900) 08/17/18 19:21 Total Protein 5.5 g/dL (6.3-8.3) L 08/26/18 07:43 Albumin 3.0 g/dL (3.5-5.0) L 08/26/18 07:43 Globulin 2.5 gm/dL (2.2-3.9) 08/26/18 07:43 Albumin/Globulin Ratio 1.2 (1.0-2.1) 08/26/18 07:43 Amylase 82 U/L (30-110) 08/22/18 07:29 Lipase < 10 U/L (23-300) L 08/22/18 07:29 CA 19-9 Antigen < 1.4 U/mL (0-37) 08/22/18 07:29 Arterial Blood Potassium 3.3 mmol/L (3.6-5.2) L 08/23/18 05:30 Venous Blood Potassium 3.2 mmol/L (3.6-5.2) L 08/22/18 09:30 Urine Color Yellow (YELLOW) 08/17/18 19:32 Urine Clarity Clear (Clear) 08/17/18 19:32 Urine pH 5.0 (5.0-8.0) 08/17/18 19:32 Ur Specific [place] 1.021 (1.003-1.030) 08/17/18 19:32 Urine Protein Negative mg/dL (NEGATIVE) 08/17/18 19:32 Urine Glucose (UA) 3+ mg/dL (Normal) H 08/17/18 19:32 Urine Ketones 1+ mg/dL (NEGATIVE) H 08/17/18 19:32 Urine Blood 1+ (NEGATIVE) H 08/17/18 19:32 Urine Nitrate Negative (NEGATIVE) 08/17/18 19:32 Urine Bilirubin Negative (NEGATIVE) 08/17/18 19:32 Urine Urobilinogen Normal mg/dL (0.2-1.0) 08/17/18 19:32 Ur Leukocyte Esterase Neg Lauren/uL (Negative) 08/17/18 19:32 Urine WBC (Auto) 2 /hpf (0-5) 08/17/18 19:32 Urine RBC (Auto) 2 /hpf (0-3) 08/17/18 19:32 Ur Squamous Epith Cells < 1 /hpf (0-5) 08/17/18 19:32 Urine Bacteria Rare (<OCC) 08/17/18 19:32 Urine Opiates Screen Negative (NEGATIVE) 08/20/18 22:29 Urine Methadone Screen Negative (NEGATIVE) 08/20/18 22:29 Ur Barbiturates Screen Negative (NEGATIVE) 08/20/18 22:29 Ur Phencyclidine Scrn Negative (NEGATIVE) 08/20/18 22:29 Ur Amphetamines Screen Negative (NEGATIVE) 08/20/18 22:29 U Benzodiazepines Scrn Negative (NEGATIVE) 08/20/18 22:29 U Oth Cocaine Metabols Negative (NEGATIVE) 08/20/18 22:29 U Cannabinoids Screen Negative (NEGATIVE) 08/20/18 22:29 Discharge Exam - Head Exam Head Exam: ATRAUMATIC, NORMAL INSPECTION Discharge Plan - Discharge Medications Prescriptions: Blood Sugar Diagnostic [Accu-Chek Guide Test Strip] 1 each MC QID #100 strip Rosuvastatin Calcium [Crestor] 5 mg PO HS #30 tab Insulin Aspart/Insulin Aspar [Novolog Mix 70/30 (70/30 units/ml)] 20 units SC ACBD 30 Days unit Lipase/Protease/Amylase [Elisabeth DR 4200 U-10,000 U-59051 U] 4,200 unit PO TIDAC #90 ecc Famotidine [Pepcid] 20 mg PO BID #60 tab chlorproMAZINE [chlorPROMAZINE HCL] 25 mg PO TID PRN #40 tab PRN Reason: Hiccups - Follow Up Plan Condition: FAIR Disposition: HOME/ ROUTINE Instructions: Insulin Aspart Protamine and Insulin Aspart, Hiccups, Hyperglycemia, Adult (DC), Acute Kidney Failure (DC), Chlorpromazine, Rosuvastatin, Diabetes and Diet, Diabetic Ketoacidosis (DC) Additional Instructions: Please follow up with Dr. Vaughan office in 1 week Please continue insulin- don't skip Please continue medication as per med. rec Referrals: Giovanni Vaughan MD [Staff Provider] - 09/02/18 12:00 pm
--- NOTE | 2018-08-27 16:16 | DS ---
DISCHARGE DIAGNOSES: 1. Intractable hiccups. 2. Diabetic gastroparesis. 3. Dehydration. 4. Diabetic ketoacidosis. HISTORY OF PRESENT ILLNESS: This is a 58-year-old -[place] male well known to me with history of type 2 diabetes, on insulin, hypertension, prior gastritis, diabetic gastroparesis, and nausea and vomiting. He came back again with nausea, vomiting, abdominal pain, generalized weakness, hiccup, inability to tolerate food and his blood sugars fluctuated due to noncompliance with diet and medication and the patient had two episodes of diabetic ketoacidosis cirrhosis which were treated and resolved. The patient is feeling better now. He is on insulin. He is on regular diet. He is tolerating diet well and his hiccups responded to Thorazine. He is being discharged with outpatient followup. Condition upon discharge is stable. The patient is stable. The patient will be followed up as outpatient. Giovanni Vaughan MD
== END 2018-08-26 12:41 | disposition home or self-care (01) | DRG 74 ==
LOC: C.ER 18:40 → C.9E 20:13 → C.6T 21:59 → C.9I 08-22 11:09 → C.6T 08-23 15:55
PROVIDERS: ADMIT Internal Medicine; ATTEND Internal Medicine
DX: E11.43 Type 2 diabetes mellitus with diabetic autonomic (poly)neuropathy (principal); K31.84 Gastroparesis; E11.10 Type 2 diabetes mellitus with ketoacidosis without coma; E87.6 Hypokalemia; E86.0 Dehydration; E11.621 Type 2 diabetes mellitus with foot ulcer; E87.1 Hypo-osmolality and hyponatremia; K27.9 Peptic ulcer, site unspecified, unspecified as acute or chronic, without hemorrhage or perforation; L97.519 Non-pressure chronic ulcer of other part of right foot with unspecified severity; E11.51 Type 2 diabetes mellitus with diabetic peripheral angiopathy without gangrene; R06.6 Hiccough; N28.9 Disorder of kidney and ureter, unspecified; K20.9 Esophagitis, unspecified; I10 Essential (primary) hypertension; K44.9 Diaphragmatic hernia without obstruction or gangrene; E03.9 Hypothyroidism, unspecified; F39 Unspecified mood [affective] disorder; K74.60 Unspecified cirrhosis of liver; Z53.9 Procedure and treatment not carried out, unspecified reason; E83.51 Hypocalcemia; E78.5 Hyperlipidemia, unspecified; E78.00 Pure hypercholesterolemia, unspecified; Z79.4 Long term (current) use of insulin; Z89.411 Acquired absence of right great toe; Z89.421 Acquired absence of other right toe(s); Z87.11 Personal history of peptic ulcer disease; Z87.891 Personal history of nicotine dependence; Z90.49 Acquired absence of other specified parts of digestive tract; Z91.14 Patient's other noncompliance with medication regimen; Z91.11 Patient's noncompliance with dietary regimen; Z83.3 Family history of diabetes mellitus

== ENCOUNTER 2018-10-11 16:53 | Observation (INO) | payer MEDICARE ==
[2018-10-11 16:54] VITALS: BMI 23.3
[2018-10-11 17:46] LABS: BASO % 0.6 % (0.0-2.0); EOS % 0.3 % (0.0-4.0); LYMPH # 1.4 K/uL (1.0-4.3); LYMPH % 19.7 % (20.0-40.0); MEAN CORPUSCULAR HEMOGLOBIN 27.9 pg (27.0-31.0); MEAN PLATELET VOLUME 7.5 fL (7.2-11.7); MONO # 0.5 K/uL (0.0-0.8); MONO % 7.1 % (0.0-10.0); NEUT % 72.3 % (50.0-75.0); NRBC % 0.1 % (0.0-2.0); RBC 5.17 Mil/uL (4.40-5.90); RED CELL DISTRIBUTION WIDTH 13.7 % (11.5-14.5)
[2018-10-11 17:49] LABS: HEMOGLOBIN 14.4 g/dL (12.0-18.0)
[2018-10-11 18:08] LABS: SQUAMOUS EPITHIAL < 1 /hpf (0-5); URINE BACTERIA RARE (<OCC); URINE BILIRUBIN NEGATIVE (NEGATIVE); URINE BLOOD NEGATIVE (NEGATIVE); URINE CLARITY Clear (Clear); URINE COLOR Straw (YELLOW); URINE GLUCOSE (UA) NORMAL (Normal); URINE LEUKOCYTE ESTERASE NEG Leu/uL (Negative); URINE PROTEIN NEGATIVE (NEGATIVE); URINE UROBILINOGEN NORMAL mg/dL (0.2-1.0)
--- NOTE | 2018-10-11 18:10 | C.PDOC ---
History Of Present Illness 58 y/o male presents to the ER for evaluation of irrepressible urge to "pull out air from stomach and burp." Patient states that he was admitted in [facility] in August 2017. Patient reports that he has "gulping and burping c ycle" which makes it difficult for him to eat. He notes that he has occasional vomiting. He states that he has history of poorly controlled diabetes. Denies having fever,chills, nausea, vomiting, and abdominal pain. Time Seen by Provider: 10/11/18 17:18 Chief Complaint (Nursing): GI Problem History Per: Patient History/Exam Limitations: no limitations Onset/Duration Of Symptoms: Days Current Symptoms Are (Timing): Still Present Severity: Moderate Past Medical History Reviewed: Historical Data, Nursing Documentation, Vital Signs - Medical History PMH: Diabetes, Gastritis, Gastrointestinal Ulcer, HTN, Hypercholesterolemia Denies: Chronic Kidney Disease Surgical History: Appendectomy (right 2nd and 3rd toes partially amputated ,and Big toe) - [facility] DETACHMENT AT RIGHT 1ST TOE, LOW, OPEN APPROACH (08/20/17) EXCISION OF STOMACH, ENDO, DIAGN (08/17/18) Family History: States: No Known Family Hx - Social History Hx Alcohol Use: Yes (weekends) Hx Substance Use: No - Immunization History Hx Tetanus Toxoid Vaccination: No Hx Influenza Vaccination: No Hx Pneumococcal Vaccination: No Review Of Systems Except As Marked, All Systems Reviewed And Found Negative. Constitutional: Negative for: Fever, Chills Gastrointestinal: Positive for: Other ("uncontrolled burping"). Negative for: Nausea, Vomiting, Abdominal Pain Physical Exam - Physical Exam Appears: Non-toxic, No Acute Distress, Other (tall thin black male, voluntary gulping air and burping out, able to stop when directed, otherwise continues at steady rate) Skin: Normal Color, Warm, Dry Head: Atraumatic, Normacephalic Eye(s): bilateral: Normal Inspection Nose: Normal Oral Mucosa: Moist Neck: Supple Chest: Symmetrical Cardiovascular: Rhythm Regular Respiratory: Normal Breath Sounds, No Rales, No Rhonchi, No Wheezing Gastrointestinal/Abdominal: Normal Exam, Soft, No Tenderness, No Guarding, No Rebound Neurological/Psych: Oriented x3, Normal Speech ED Course And Treatment - Laboratory Results Result Diagrams: 10/11/18 17:43 10/11/18 17:43 Lab Interpretation: Abnormal (hyponatremia) ECG: Interpreted By Me ECG Rhythm: Sinus Rhythm ECG Interpretation: Normal Rate From EC O2 Sat by Pulse Oximetry: 100 Pulse Ox Interpretation: Normal - Radiology CXR: Interpreted by Me CXR Interpretation: Yes: No Acute Disease Reevaluation Time: 19:00 Reassessment Condition: Improved (sleeping, now without voluntary gulping/burping, but with continued diaphragmatic spasm noted c/w hiccups) - Physician Consult Information Outcome Of Conversation: 1899: d/w Dr. Vaughan- PMD- ok to admit Medical Decision Making Medical Decision Making: recurrent uncontrolled hiccups/gulping/burping thorazine Hyponatremia, Na 119 prob related to excess free PO water intake fluid restrict or NS maintenence Disposition Doctor Will See Patient In The: Hospital Counseled Patient/Family Regarding: Studies Performed, Diagnosis - Disposition Disposition: HOSPITALIZED Disposition Time: 19:30 Condition: GOOD Forms: [facility] (Latvian) - Clinical Impression Clinical Impression: Intractable hiccups, Hyponatremia - Scribe Statement The provider has reviewed the documentation as recorded by the Dennis Handy Provider Attestation: All medical record entries made by the Laureenibe were at my direction and personally dictated by me. I have reviewed the chart and agree that the record accurately reflects my personal performance of the history, physical exam, medical decision making, and the department course for this patient. I have also personally directed, reviewed, and agree with the discharge instructions and disposition.
[2018-10-11 18:23] LABS: ALB/GLOB RATIO 1.6 (1.0-2.1); ALBUMIN 4.8 g/dL (3.5-5.0); ALT/SGPT 19 U/L (21-72); AST/SGOT 37 U/L (17-59); BLOOD UREA NITROGEN 9 mg/dL (9-20); CALCIUM 9.3 mg/dl (8.6-10.4); GFR NON-AFRICAN AMERICAN > 60; LIPASE < 10 U/L (23-300)
--- NOTE | 2018-10-11 23:52 | CP.PCM.HP ---
Present on Admission - Present on Admission Any Indicators Present on Admission: Yes History of Uncontrolled Diabetes: Yes Past Patient History - Infectious Disease Hx of Infectious Diseases: None - Tetanus Immunizations Tetanus Immunization: Unknown - Past Medical History & Family History Past Medical History?: Yes - Past Social History Smoking Status: Former Smoker - CARDIAC Hx Hypercholesterolemia: Yes Hx Hypertension: Yes - PULMONARY Hx Respiratory Disorders: No - NEUROLOGICAL Hx Neurological Disorder: No - HEENT Hx HEENT Problems: No - RENAL Hx Chronic Kidney Disease: No - ENDOCRINE/METABOLIC Hx Diabetes Mellitus Type 2: Yes - HEMATOLOGICAL/ONCOLOGICAL Hx Blood Disorders: No - INTEGUMENTARY Hx Dermatological Problems: Yes Other/Comment: HX: GANGRENE RIGHT FOOT TOE(GREAT) surgery. 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) surgery - MUSCULOSKELETAL/RHEUMATOLOGICAL Hx Musculoskeletal Disorders: No Hx Falls: No - GASTROINTESTINAL Hx Gastritis: Yes - GENITOURINARY/GYNECOLOGICAL Hx Genitourinary Disorders: No - PSYCHIATRIC Hx Substance Use: No - SURGICAL HISTORY Hx Appendectomy: Yes (right 2nd and 3rd toes partially amputated ,and Big toe) - ANESTHESIA Hx Anesthesia: Yes Hx Anesthesia Reactions: No Hx Malignant Hyperthermia: No Meds Allergies/Adverse Reactions: Allergies Allergy/AdvReac Type Severity Reaction Status Date / Time No Known Allergies Allergy Verified 10/11/18 17:08 Results - Vital Signs Recent Vital Signs: Last Vital Signs Temp 97.3 F L 10/11/18 21:30 Pulse 84 10/11/18 21:30 Resp 18 10/11/18 22:52 BP 117/82 10/11/18 21:30 Pulse Ox 98 10/11/18 21:30 - Labs Result Diagrams: 10/11/18 17:43 10/11/18 17:43 Labs: Laboratory Results - last 24 hr 10/11/18 10/11/18 10/11/18 17:43 17:43 17:58 WBC 7.0 RBC 5.17 Hgb 14.4 D Hct 42.4 MCV 82.0 MCH 27.9 MCHC 34.0 RDW 13.7 Plt Count 290 MPV 7.5 Neut % (Auto) 72.3 Lymph % (Auto) 19.7 L [place] % (Auto) 7.1 Eos % (Auto) 0.3 Baso % (Auto) 0.6 Neut # (Auto) 5.0 Lymph # (Auto) 1.4 [place] # (Auto) 0.5 Eos # (Auto) 0.0 Baso # (Auto) 0.0 Sodium 119 L* Potassium 4.0 Chloride 81 L Carbon Dioxide 27 Anion Gap 14 BUN 9 Creatinine 1.1 Est GFR ( Amer) > 60 Est GFR (Non-Af Amer) > 60 POC Glucose (mg/dL) Random Glucose 139 H D Calcium 9.3 Magnesium 1.8 Total Bilirubin 1.9 H AST 37 ALT 19 L Alkaline Phosphatase 107 Total Protein 7.8 Albumin 4.8 Globulin 3.0 Albumin/Globulin Ratio 1.6 Lipase < 10 L Urine Color Straw Urine Clarity Clear Urine pH 6.0 Ur Specific [place] 1.002 L Urine Protein Negative Urine Glucose (UA) Normal Urine Ketones Trace Urine Blood Negative Urine Nitrate Negative Urine Bilirubin Negative Urine Urobilinogen Normal Ur Leukocyte Esterase Neg Urine WBC (Auto) 1 Ur Squamous Epith Cells < 1 Urine Bacteria Rare 10/11/18 21:27 WBC RBC Hgb Hct MCV MCH MCHC RDW Plt Count MPV Neut % (Auto) Lymph % (Auto) [place] % (Auto) Eos % (Auto) Baso % (Auto) Neut # (Auto) Lymph # (Auto) [place] # (Auto) Eos # (Auto) Baso # (Auto) Sodium Potassium Chloride Carbon Dioxide Anion Gap BUN Creatinine Est GFR ( Amer) Est GFR (Non-Af Amer) POC Glucose (mg/dL) 179 H Random Glucose Calcium Magnesium Total Bilirubin AST ALT Alkaline Phosphatase Total Protein Albumin Globulin Albumin/Globulin Ratio Lipase Urine Color Urine Clarity Urine pH Ur Specific [place] Urine Protein Urine Glucose (UA) Urine Ketones Urine Blood Urine Nitrate Urine Bilirubin Urine Urobilinogen Ur Leukocyte Esterase Urine WBC (Auto) Ur Squamous Epith Cells Urine Bacteria
[2018-10-12 00:58] VITALS: RESP 20
[2018-10-12] MEDS: (Novolog Mix 70/30) Insulin Aspart/Insulin Aspar 100 units/ml SC SCH ×2 (08:23→16:16)
[2018-10-12] MEDS: (Novolin R) Insulin Human Regular 100 units/ml vial SC SCH ×4 (08:25→21:18)
[2018-10-12] MEDS: LIPASE/PROTEASE/AMYLASE 4,200 U ECC PO SCH ×3 (08:26→16:18)
[2018-10-12] MEDS: Enoxaparin 40 mg Syringe SC SCH (09:50)
[2018-10-12] MEDS: Sodium Chloride 0.9% 1,000 ML IV SCH ×2 (09:51→21:18)
--- NOTE | 2018-10-12 11:09 | RAD ---
Date of service: 10/11/2018 PROCEDURE: CHEST RADIOGRAPH, 1 VIEW HISTORY: abd pain COMPARISON: 08/17/2018 FINDINGS: LUNGS: Clear. PLEURA: No pneumothorax or pleural fluid seen. CARDIOVASCULAR: No aortic atherosclerotic calcification present. Normal. OSSEOUS STRUCTURES: No significant abnormalities. VISUALIZED UPPER ABDOMEN: Normal. OTHER FINDINGS: None. IMPRESSION: No active disease.No significant interval change compared to the prior examination(s).
[2018-10-12 14:51] LABS: BARBITURATES, UR NEGATIVE (NEGATIVE); BENZODIAZEPINES, UR NEGATIVE (NEGATIVE); OPIATES, UR NEGATIVE (NEGATIVE); PHENCYCLIDINE, UR NEGATIVE (NEGATIVE)
[2018-10-12 15:06] LABS: BLOOD UREA NITROGEN 11 mg/dL (9-20); CALCIUM 8.9 mg/dl (8.6-10.4); GFR NON-AFRICAN AMERICAN > 60
--- NOTE | 2018-10-12 18:32 | CARD ---
APPROVED REPORT Date of service: 10/11/2018 EKG Measurement Heart [id number] <Conclusion> Normal sinus rhythm Possible Left atrial enlargement Borderline ECG
--- NOTE | 2018-10-12 20:00 | PN ---
DATE: 10/12/2018 LOCATION: 360, bed A. SUBJECTIVE: This is a 58-year-old male known case for me from previous admission seen initially for GI consultation on 10/11/2018. We examined again today with less nausea and vomiting plus dyspepsia and much less episodes of hiccup somewhat tolerating oral intake, but complaining of right foot ulceration and pain with intermittent episodes of mid epigastric, mid abdominal pain. The entire chart is reviewed including but not limited to the most recent lab and radiology study results, current and previous medication list, current and previous medical events; and today's lab result showed blood glucose level still elevated 241. Rest of the lab result is still pending; however, the patient had yesterday normal CBC, but sodium 119 with total bilirubin 1.9. PHYSICAL EXAMINATION: GENERAL: A 58-year-old male denying any chest pain or palpitation. No reported evidence of active GI bleeding. VITAL SIGNS: Afebrile with pulse of 92, blood pressure 150/86 with respiratory rate 20-22. HEENT: Showed pale, dry oral mucous membrane mildly, and icteric sclerae bilaterally. HEART: Positive S1 and S2. ABDOMEN: Soft with mild generalized tenderness, but mainly in the mid epigastric and left lower quadrant area. No mass or organomegaly. No rebound tenderness or guarding. EXTREMITIES: Right foot covering with clean dressing. No discharge. No edema, clubbing or cyanosis. NEUROLOGIC: No reported new neurological deficits, sensory or motor. IMPRESSION: 1. Re-exacerbation of peptic ulcer disease. 2. Diabetic gastroparesis. 3. Poorly controlled diabetes mellitus. 4. Hyponatremia which can contribute to the patient's clinical status. 5. Gastric ulcer by upper endoscopy before. 6. Known history of hyperlipidemia, hypertension, status post appendectomy with right second and third toe partially amputated with big toe infection before. SUGGESTIONS: 1. Continue current management. 2. Adjust oral intake. 3. Antireflux measure. 4. Reglan IV. 5. Proton pump inhibitor. 6. Repeat cancer markers. Abdominal ultrasound. 7. Further recommendation to follow and serum lipase and serum amylase to be ordered. The patient wants to have corrected his hyponatremia. Chad Palafox MD
[2018-10-13 01:08] VITALS: TEMP 98.1
--- NOTE | 2018-10-13 04:17 | PN ---
DATE: 10/12/2018 SUBJECTIVE: The patient is on intravenous sodium chloride. His sodium is down. He is afebrile. He has nausea, and he has vomited several times today. His vomiting was observed by nursing staff. He denies any fever or chills. He denies any dysuria, hematuria, or polyuria. He denies any sneezing, itchy eyes, itchy nose. PHYSICAL EXAMINATION: VITAL SIGNS: Blood pressure 132/84, pulse 86, respiratory rate 20, temperature 99.2. LUNGS: Clear. No rales. No rhonchi. CARDIOVASCULAR SYSTEM: S1 and S2, regular. No heave. No thrill. ABDOMEN: Soft, nontender. Bowel sounds are exaggerated. ASSESSMENT: 1. Acute gastritis. 2. Poorly controlled diabetes. 3. Hyponatremia. Plan: IV fluids, Accu-Chek sliding scale, . Monitor the patient. Giovanni Vaughan MD
[2018-10-13] MEDS: Sodium Chloride 0.9% 1,000 ML IV SCH ×2 (04:30→07:01)
[2018-10-13 06:59] LABS: BASO % 0.5 % (0.0-2.0); EOS % 0.2 % (0.0-4.0); HEMOGLOBIN 14.3 g/dL (12.0-18.0); LYMPH # 1.4 K/uL (1.0-4.3); LYMPH % 20.7 % (20.0-40.0); MEAN CELL VOLUME 83.6 fL (80.0-94.0); MEAN CORPUSCULAR HEMOGLOBIN 28.2 pg (27.0-31.0); MEAN CORPUSCULAR HGB CONC 33.7 g/dL (33.0-37.0); MEAN PLATELET VOLUME 8.3 fL (7.2-11.7); MONO # 0.6 K/uL (0.0-0.8); MONO % 8.6 % (0.0-10.0); NEUT # 4.9 K/uL (1.8-7.0); RBC 5.09 Mil/uL (4.40-5.90); RED CELL DISTRIBUTION WIDTH 14.3 % (11.5-14.5)
[2018-10-13 07:09] LABS: ALB/GLOB RATIO 1.4 (1.0-2.1); ALBUMIN 3.9 g/dL (3.5-5.0); ALT/SGPT 21 U/L (21-72); AST/SGOT 38 U/L (17-59); BLOOD UREA NITROGEN 11 mg/dL (9-20); CALCIUM 8.7 mg/dl (8.6-10.4); GFR NON-AFRICAN AMERICAN > 60
[2018-10-13] MEDS: (Novolog Mix 70/30) Insulin Aspart/Insulin Aspar 100 units/ml SC SCH (07:33)
[2018-10-13] MEDS: (Novolin R) Insulin Human Regular 100 units/ml vial SC SCH (07:33)
[2018-10-13] MEDS: LIPASE/PROTEASE/AMYLASE 4,200 U ECC PO SCH ×2 (07:41→08:47)
[2018-10-13 07:58] VITALS: BP 131/77; PULSE 85; O2SAT 96
--- NOTE | 2018-10-13 09:41 | HP ---
CHIEF COMPLAINT: Burping, nausea. HISTORY OF PRESENT ILLNESS: This is a 58-year-old male, well known to me with a history of diabetes insulin dependent with history of prior diabetic ketoacidosis, history of prior abdominal pain, nausea, vomiting, hiccups, noncompliant with diet, medication, and followup, in his usual status of health. He is ambulatory and independent in activities of daily living. The patient never bought his medications. He never took his medications, and he has been having polyuria, polydipsia, polyphagia, nausea, vomiting, generalized weakness, and now, he has intractable burping, nausea, weakness, inability to tolerate food causing vomiting. He denies any fever or chills. He denies any chest pain. He has palpitation, weakness, and dizziness. He denies any polyuria, polydipsia, or polyphagia. He denies any history of hematuria or pyuria. He denies any history of sneezing, itchy eyes, or itchy nose. There is no history of cough, sore throat, or runny nose. There is no history of trauma, head injury, fall, or loss of consciousness. There is no history of seizure-like activity. PAST MEDICAL HISTORY: Diabetes, hypertension, gastritis, and hyperlipidemia. SOCIAL HISTORY: He denies smoking or drinking. FAMILY HISTORY: Noncontributory. CURRENT MEDICATIONS: He is supposed to be on Pepcid, chlorpromazine, Crestor, pancreatic enzyme supplement, and NovoLog. PHYSICAL EXAMINATION: GENERAL: A middle-aged male. He is in distress with abdominal pain, generalized weakness, and constant burping. VITAL SIGNS: Blood pressure 117/82, pulse 64, respiratory rate 22, temperature 97.3. SKIN: Dry, poor turgor. No bruising, no purpura, no petechiae. HEENT: Atraumatic and normocephalic. Negative pallor. Negative jaundice. Extraocular movements are intact. NECK: Supple. No JVD. No lymph node. No thyromegaly. No carotid bruit. CHEST WALL: Bilateral symmetrical expansion. No tenderness. LUNGS: Clear. No rales. No rhonchi. CARDIOVASCULAR SYSTEM: PMI not localized. S1, S2 regular. No heave. No thrill. ABDOMEN: Soft, nontender. Bowel sounds are exaggerated. RECTAL: No masses. No bleed. EXTREMITIES: No clubbing, cyanosis, or edema. CENTRAL NERVOUS SYSTEM: Awake, alert, and oriented x3. Cranial nerves II through XII are normal. Power 5/5 x4. Plantars are downgoing. ASSESSMENT: 1. Acute nausea, vomiting, abdominal pain. Rule out gastritis. Rule out reflux esophagitis. 2. Poorly controlled diabetes. 3. Severe hyponatremia with symptoms. 4. Anxiety. PLAN: Admit. Detailed orders are written. Refer to the orders. Giovanni Vaughan MD
[2018-10-13] MEDS ORDERED: Pneumococcal 23-Valent Vaccine IM ONE (10:00)
[2018-10-13] MEDS ORDERED: Influenza Vaccine 60 mcg/0.5 mL SYR (4YR UP) IM ONE (10:00)
[2018-10-13] MEDS: Enoxaparin 40 mg Syringe SC SCH (10:14)
--- NOTE | 2018-10-13 17:50 | CP.PCM.PN ---
Subjective - Date & Time of Evaluation Date of Evaluation: 10/13/18 Time of Evaluation: 10:00 - Subjective Subjective: alert and oriented x3 , denies any pain or distress, NAD. Objective - Vital Signs/Intake and Output Vital Signs (last 24 hours): Temp Pulse Resp BP Pulse Ox 98.1 F 85 20 131/77 96 10/13/18 07:56 10/13/18 07:56 10/13/18 07:56 10/13/18 07:56 10/13/18 13:18 Intake and Output: 10/13/18 10/13/18 06:59 18:59 Intake Total 1750 Output Total 1600 Balance 150 - Labs Labs: 10/13/18 06:41 10/13/18 06:41 Assessment and Plan - Assessment and Plan (Free Text) Assessment: Patient admitted with hyponatremia, seen and examined. Alert and oriented x3 denies sob or chest pains, sodium today improved to 129. Discussed with DR Vaughan, plan to discharge home today. Advised to follow up in the office in 1 week.
--- NOTE | 2018-10-13 18:18 | PN ---
DATE: 10/13/2018 LOCATION: 360, bed A. SUBJECTIVE: This is a 58-year-old male seen and examined early in rounds. Denied any active bleeding or nausea or vomiting, but dyspepsia with hiccups, on and off, treated with Thorazine. The patient somewhat tolerated oral intake despite reported vomiting yesterday during my physical examination. The entire chart is reviewed including, but not limited to the most recent lab and radiology study results, current and the previous medication list and today's lab results showed normal CBC. Sodium is still low 129. Blood glucose level 308 with total bilirubin 1.4, otherwise normal liver function tests. His CEA was reported to be elevated to 4.2. The patient will need followup colonoscopy when he is stable clinically, which could be done; however, as outpatient. PHYSICAL EXAMINATION: GENERAL: A 58-year-old male, awake, alert, and oriented. VITAL SIGNS: Afebrile with pulse of 82, respiratory rate 20-22, and blood pressure 128/72. HEENT: Showed pale, dry oral mucous membrane. Nonicteric sclerae. LUNGS: Few scattered crepitation. Decreased air entry at bases. HEART: Positive S1 and S2. ABDOMEN: Soft with mild generalized tenderness. No mass or organomegaly. No rebound tenderness or guarding. EXTREMITIES: Without significant edema, clubbing or cyanosis. NEUROLOGICAL: No reported new neurological deficits, sensory or motor. No reported new focal deficits. IMPRESSION: 1. Re-exacerbation of peptic ulcer disease. 2. Diabetic gastroparesis. 3. Poorly-controlled diabetes mellitus. 4. Increased CEA level. 5. Reported history of colon polyp, hypertension, and hyperlipidemia with status post appendectomy. 6. Known history of right second and third toe partial amputation with big toe infection before, most likely secondary to poorly-controlled diabetes mellitus. SUGGESTIONS: 1. Continue current management. 2. Reglan p.o. 10 mg 4 times a day. 3. Correct any underlying electrolyte imbalance due to the patient's hyponatremia. 4. The patient to be followed up as outpatient for potential colonoscopy due to elevated CEA. Further recommendation to follow. Chad Palafox MD [facility] # [id number]
--- NOTE | 2018-10-13 21:54 | CP.PCM.DIS ---
Provider - Provider Date of Admission: 10/11/18 19:38 Attending physician: Giovanni Vaughan MD Consults: 10/11/18 22:30 Gastroenterology Consult Routine Comment: Consulting Provider: Chad Bliss Consulting Physician: Chad Bliss Reason for Consult: hiccough Time Spent in preparation of Discharge (in minutes): 30 Hospital Course - Lab Results Lab Results: Most Recent Lab Values WBC 7.0 K/uL (4.8-10.8) 10/13/18 06:41 RBC 5.09 Mil/uL (4.40-5.90) 10/13/18 06:41 Hgb 14.3 g/dL (12.0-18.0) 10/13/18 06:41 Hct 42.6 % (35.0-51.0) 10/13/18 06:41 MCV 83.6 fL (80.0-94.0) 10/13/18 06:41 MCH 28.2 pg (27.0-31.0) 10/13/18 06:41 MCHC 33.7 g/dL (33.0-37.0) 10/13/18 06:41 RDW 14.3 % (11.5-14.5) 10/13/18 06:41 Plt Count 288 K/uL (130-400) 10/13/18 06:41 MPV 8.3 fL (7.2-11.7) 10/13/18 06:41 Neut % (Auto) 70.0 % (50.0-75.0) 10/13/18 06:41 Lymph % (Auto) 20.7 % (20.0-40.0) 10/13/18 06:41 [place] % (Auto) 8.6 % (0.0-10.0) 10/13/18 06:41 Eos % (Auto) 0.2 % (0.0-4.0) 10/13/18 06:41 Baso % (Auto) 0.5 % (0.0-2.0) 10/13/18 06:41 Neut # (Auto) 4.9 K/uL (1.8-7.0) 10/13/18 06:41 Lymph # (Auto) 1.4 K/uL (1.0-4.3) 10/13/18 06:41 [place] # (Auto) 0.6 K/uL (0.0-0.8) 10/13/18 06:41 Eos # (Auto) 0.0 K/uL (0.0-0.7) 10/13/18 06:41 Baso # (Auto) 0.0 K/uL (0.0-0.2) 10/13/18 06:41 Sodium 129 mmol/L (132-148) L 10/13/18 06:41 Potassium 4.3 mmol/L (3.6-5.2) 10/13/18 06:41 Chloride 94 mmol/L (98-107) L 10/13/18 06:41 Carbon Dioxide 29 mmol/L (22-30) 10/13/18 06:41 Anion Gap 11 (10-20) 10/13/18 06:41 BUN 11 mg/dL (9-20) 10/13/18 06:41 Creatinine 1.1 mg/dL (0.8-1.5) 10/13/18 06:41 Est GFR ( Amer) > 60 10/13/18 06:41 Est GFR (Non-Af Amer) > 60 10/13/18 06:41 POC Glucose (mg/dL) 308 mg/dL (65-110) H 10/13/18 07:19 Random Glucose 280 mg/dL (75-110) H D 10/13/18 06:41 Calcium 8.7 mg/dl (8.6-10.4) 10/13/18 06:41 Magnesium 1.8 mg/dL (1.6-2.3) 10/11/18 17:43 Total Bilirubin 1.4 mg/dL (0.2-1.3) H 10/13/18 06:41 AST 38 U/L (17-59) 10/13/18 06:41 ALT 21 U/L (21-72) 10/13/18 06:41 Alkaline Phosphatase 115 U/L (38-126) 10/13/18 06:41 Total Protein 6.6 g/dL (6.3-8.3) 10/13/18 06:41 Albumin 3.9 g/dL (3.5-5.0) 10/13/18 06:41 Globulin 2.7 gm/dL (2.2-3.9) 10/13/18 06:41 Albumin/Globulin Ratio 1.4 (1.0-2.1) 10/13/18 06:41 Lipase < 10 U/L (23-300) L 10/11/18 17:43 Carcinoembryonic Ag 4.2 ng/mL (0-3.0) H 10/12/18 11:33 CA 19-9 Antigen < 1.4 U/mL (0-37) 10/12/18 11:33 Urine Color Straw (YELLOW) 10/11/18 17:58 Urine Clarity Clear (Clear) 10/11/18 17:58 Urine pH 6.0 (5.0-8.0) 10/11/18 17:58 Ur Specific [place] 1.002 (1.003-1.030) L 10/11/18 17:58 Urine Protein Negative mg/dL (NEGATIVE) 10/11/18 17:58 Urine Glucose (UA) Normal mg/dL (Normal) 10/11/18 17:58 Urine Ketones Trace mg/dL (NEGATIVE) 10/11/18 17:58 Urine Blood Negative (NEGATIVE) 10/11/18 17:58 Urine Nitrate Negative (NEGATIVE) 10/11/18 17:58 Urine Bilirubin Negative (NEGATIVE) 10/11/18 17:58 Urine Urobilinogen Normal mg/dL (0.2-1.0) 10/11/18 17:58 Ur Leukocyte Esterase Neg Lauren/uL (Negative) 10/11/18 17:58 Urine WBC (Auto) 1 /hpf (0-5) 10/11/18 17:58 Ur Squamous Epith Cells < 1 /hpf (0-5) 10/11/18 17:58 Urine Bacteria Rare (<OCC) 10/11/18 17:58 Urine Opiates Screen Negative (NEGATIVE) 10/12/18 14:24 Urine Methadone Screen Negative (NEGATIVE) 10/12/18 14:24 Ur Barbiturates Screen Negative (NEGATIVE) 10/12/18 14:24 Ur Phencyclidine Scrn Negative (NEGATIVE) 10/12/18 14:24 Ur Amphetamines Screen Negative (NEGATIVE) 10/12/18 14:24 U Benzodiazepines Scrn Negative (NEGATIVE) 10/12/18 14:24 U Oth Cocaine Metabols Negative (NEGATIVE) 10/12/18 14:24 U Cannabinoids Screen Negative (NEGATIVE) 10/12/18 14:24 Discharge Plan - Follow Up Plan Condition: GOOD Disposition: HOME/ ROUTINE Instructions: Hyponatremia (DC) Additional Instructions: Discharge home as per follow up with PMD in 1 week Referrals: Giovanni Vaughan MD [Staff Provider] -
== END 2018-10-13 11:19 | disposition home or self-care (01) ==
LOC: C.ER 16:53 → C.9E 19:38 → C.3T 22:05
PROVIDERS: ADMIT Internal Medicine; ATTEND Internal Medicine
DX: E11.43 Type 2 diabetes mellitus with diabetic autonomic (poly)neuropathy (principal); K31.84 Gastroparesis; L97.519 Non-pressure chronic ulcer of other part of right foot with unspecified severity; Z79.4 Long term (current) use of insulin; Z91.11 Patient's noncompliance with dietary regimen; Z86.010 Personal history of colon polyps; Z87.11 Personal history of peptic ulcer disease; Z87.891 Personal history of nicotine dependence; K29.70 Gastritis, unspecified, without bleeding; L08.9 Local infection of the skin and subcutaneous tissue, unspecified; R06.6 Hiccough; E11.621 Type 2 diabetes mellitus with foot ulcer; E11.65 Type 2 diabetes mellitus with hyperglycemia; E78.00 Pure hypercholesterolemia, unspecified; E78.5 Hyperlipidemia, unspecified; E87.1 Hypo-osmolality and hyponatremia; F41.9 Anxiety disorder, unspecified; I10 Essential (primary) hypertension; K29.00 Acute gastritis without bleeding
CPT/HCPCS: 36415; 71045; 80048; 80053; 81001; 82378; 82948; 83690; 83735; 85025; 86301; 93005; 96372; 96374; 96376; 99285; G0378; G0480; J1650; J2765; J3230; J7030; Q0161

== ENCOUNTER 2018-10-16 08:36 | Inpatient (IN) | payer MEDICARE ==
[2018-10-16 08:38] VITALS: BMI 23.1
[2018-10-16 09:37] LABS: BASO % 0.8 % (0.0-2.0); EOS % 0.6 % (0.0-4.0); HEMOGLOBIN 14.2 g/dL (12.0-18.0); LYMPH # 1.3 K/uL (1.0-4.3); LYMPH % 22.9 % (20.0-40.0); MEAN CELL VOLUME 82.9 fL (80.0-94.0); MEAN CORPUSCULAR HEMOGLOBIN 28.2 pg (27.0-31.0); MEAN PLATELET VOLUME 7.8 fL (7.2-11.7); MONO # 0.6 K/uL (0.0-0.8); MONO % 9.6 % (0.0-10.0); NEUT # 3.9 K/uL (1.8-7.0); NEUT % 66.1 % (50.0-75.0); NRBC % 0.1 % (0.0-2.0); RBC 5.02 Mil/uL (4.40-5.90); RED CELL DISTRIBUTION WIDTH 13.9 % (11.5-14.5); WHITE BLOOD COUNT 5.9 K/uL (4.8-10.8)
[2018-10-16 09:42] LABS: SQUAMOUS EPITHIAL < 1 /hpf (0-5); URINE BILIRUBIN NEGATIVE (NEGATIVE); URINE BLOOD NEGATIVE (NEGATIVE); URINE CLARITY Clear (Clear); URINE COLOR Yellow (YELLOW); URINE GLUCOSE (UA) 3+ mg/dL (Normal); URINE LEUKOCYTE ESTERASE NEG Leu/uL (Negative); URINE PROTEIN NEGATIVE (NEGATIVE); URINE UROBILINOGEN NORMAL mg/dL (0.2-1.0)
[2018-10-16 09:53] LABS: ALB/GLOB RATIO 1.5 (1.0-2.1); ALBUMIN 4.6 g/dL (3.5-5.0); ALT/SGPT < 6 U/L (21-72); AST/SGOT 49 U/L (17-59); BLOOD UREA NITROGEN 7 mg/dL (9-20); CALCIUM 8.9 mg/dl (8.6-10.4); GFR NON-AFRICAN AMERICAN 57; LIPASE < 10 U/L (23-300)
--- NOTE | 2018-10-16 10:35 | C.PDOC ---
History Of Present Illness 58 year old male with PMHx of gastritis and diabetes presents to the ED complaining of epigastric pain that began 2 days ago but has been worsening. Associated symptoms include nausea, vomiting, and persistent hiccups. Reports he was admitted and recently discharged on 10/13. States he felt better on discharge. Denies any chest pain, shortness of breath, cough, fever, diarrhea. Time Seen by Provider: 10/16/18 08:45 Chief Complaint (Nursing): GI Problem History Per: Patient History/Exam Limitations: no limitations Onset/Duration Of Symptoms: Days Current Symptoms Are (Timing): Still Present Location Of Pain/Discomfort: Epigastric Associated Symptoms: Nausea, Vomiting. denies: Fever, Chills, Diarrhea Additional History Per: Prior Records Past Medical History Reviewed: Historical Data, Nursing Documentation, Vital Signs Vital Signs: Last Vital Signs Temp 97.6 F 10/16/18 08:38 Pulse 94 H 10/16/18 08:38 Resp 20 10/16/18 08:38 BP 153/95 H 10/16/18 08:38 Pulse Ox 97 10/16/18 08:38 - Medical History PMH: Diabetes, Gastritis, Gastrointestinal Ulcer, HTN, Hypercholesterolemia Denies: Chronic Kidney Disease Surgical History: Appendectomy (right 2nd and 3rd toes partially amputated ,and Big toe) - [facility] Procedures DETACHMENT AT RIGHT 1ST TOE, LOW, OPEN APPROACH (08/20/17) EXCISION OF STOMACH, ENDO, DIAGN (08/17/18) Family History: States: No Known Family Hx - Social History Hx Alcohol Use: Yes (weekends) Hx Substance Use: No - Immunization History Hx Tetanus Toxoid Vaccination: No Hx Influenza Vaccination: No Hx Pneumococcal Vaccination: No Review Of Systems Constitutional: Positive for: Other (hiccups ). Negative for: Fever, Chills Cardiovascular: Negative for: Chest Pain Respiratory: Negative for: Cough, Shortness of Breath Gastrointestinal: Positive for: Nausea, Vomiting, Abdominal Pain. Negative for: Diarrhea Physical Exam - Physical Exam Appears: Non-toxic, No Acute Distress, Other (uncomfortable ) Skin: Warm, Dry, No Rash Head: Normacephalic Eye(s): bilateral: Normal Inspection Oral Mucosa: Moist Neck: Supple Chest: Symmetrical Cardiovascular: Rhythm Regular Respiratory: No Rales, No Rhonchi, No Wheezing Gastrointestinal/Abdominal: Soft, Tenderness (epigastric ), Other (Negative McBurney's Point, Negative Collier's Sign) Back: No CVA Tenderness Extremity: Bilateral: Normal Color And Temperature, Normal ROM Neurological/Psych: Oriented x3, Normal Speech Gait: Steady ED Course And Treatment - Laboratory Results Result Diagrams: 10/16/18 09:26 10/16/18 09:26 Lab Results: Total Bilirubin 2.1 mg/dL (0.2-1.3) H 10/16/18 09:26 AST 49 U/L (17-59) 10/16/18 09:26 ALT < 6 U/L (21-72) L D 10/16/18 09:26 Alkaline Phosphatase 92 U/L (38-126) 10/16/18 09:26 Total Protein 7.8 g/dL (6.3-8.3) 10/16/18 09: Albumin 4.6 g/dL (3.5-5.0) 10/16/18 09: Globulin 3.1 gm/dL (2.2-3.9) 10/16/18 09: Albumin/Globulin Ratio 1.5 (1.0-2.1) 10/16/18 09: Lipase < 10 U/L (23-300) L 10/16/18 09:26 Urine Color Yellow (YELLOW) 10/16/18 09: Urine Clarity Clear (Clear) 10/16/18 09:26 Urine pH 6.0 (5.0-8.0) 10/16/18 09:26 Ur Specific [place] 1.003 (1.003-1.030) 10/16/18 09:26 Urine Protein Negative mg/dL (NEGATIVE) 10/16/18 09:26 Urine Glucose (UA) 3+ mg/dL (Normal) H 10/16/18 09:26 Urine Ketones Negative mg/dL (NEGATIVE) 10/16/18 09:26 Urine Blood Negative (NEGATIVE) 10/16/18 09: Urine Nitrate Negative (NEGATIVE) 10/16/18 09:26 Urine Bilirubin Negative (NEGATIVE) 10/16/18 09:26 Urine Urobilinogen Normal mg/dL (0.2-1.0) 10/16/18 09:26 Ur Leukocyte Esterase Neg Lauren/uL (Negative) 10/16/18 09:26 Urine WBC (Auto) 1 /hpf (0-5) 10/16/18 09:26 Urine RBC (Auto) < 1 /hpf (0-3) 10/16/18 09:26 Ur Squamous Epith Cells < 1 /hpf (0-5) 10/16/18 09:26 O2 Sat by Pulse Oximetry: 97 (RA) Pulse Ox Interpretation: Normal - CT Scan/US CT CHEST Other Rad Studies (CT/US): Read By Radiologist, Radiology Report Reviewed CT/US Interpretation: Accession No. : [id number]. Patient Name / ID : CHRISTINE GILL / [id number]. Exam Date : 10/16/2018 10:38:56 ( Approved ). Study Comment : Sex / Age : M / [id number]. Creator : Reema Cardoza. Dictator : Rajwinder Stephenson MD. Testing Coordinator : Project Scheduler : Rajwinder Stephenson MD. Approver2 : Report Date : 10/16/2018 11:02:42. My Comment : . Date of service: 10/16/2018. PROCEDURE: CT Chest without contrast. HISTORY: hiccups x 1 year, eval chest/diaphram, r/o masses. COMPARISON: None available. TECHNIQUE: Contiguous axial images were obtained through the chest without intravenous contrast enhancement. Sagittal and coronal reconstructions were performed. . Radiation dose: Total exam DLP = 260.72 mGy-cm. This CT exam was performed using one or more of the following dose reduction techniques: Automated exposure control, adjustment of the mA and/or kV according to patient size, and/or use of iterative reconstruction technique. FINDINGS: LUNGS: There are small hazy nodular opacities noted at the inferior aspect of the right lung upper lobe and in the right lung lower lobe may represent pneumonia or aspiration. MEDIASTINUM: . Normal sized heart. Main pulmonary artery unremarkable. No vascular congestion. No lymphadenopathy. Small foci of atherosclerotic calcification noted in the aortic arch. There is moderate diffuse esophageal mucosal thickening noted. There is [id number] dilated esophagus contains air and fluid. Findings suspicious for esophagitis. The possibility of gastroesophageal reflux also should be considered. PLEURA: No pleural fluid. No pneumothorax. BONES: No fracture. No destructive lesion. UPPER ABDOMEN: No evidence of acute pathology at the visualized portion of abdomen. OTHER FINDINGS: None. IMPRESSION: Small nodular opacities noted at the inferior aspect of the right lung upper lobe and in the right lung lower lobe may represent pneumonia or aspiration. Moderate diffuse esophageal mucosal thickening and mild to moderate dilatation of the esophagus contains fluid and air. Small to moderate size hiatus hernia is also noted. The possibility of esophagitis and gastroesophageal acute fracture should be considered. Progress Note: CT chest and EKG ordered. Blood and urine collected and sent to the lab for analysis. Patient treated with Reglan, Zofran and Thorazine. On reevaluation, patient reports no improvement. Reassessment Condition: Unchanged Disposition - Disposition - Scribe Statement The provider has reviewed the documentation as recorded by the Dennis Lakhani All medical record entries made by the Dennis were at my direction and personally dictated by me. I have reviewed the chart and agree that the record accurately reflects my personal performance of the history, physical exam, medical decision making, and the department course for this patient. I have also personally directed, reviewed, and agree with the discharge instructions and disposition.
--- NOTE | 2018-10-16 11:24 | CT ---
Date of service: 10/16/2018 PROCEDURE: CT Chest without contrast HISTORY: hiccups x 1 year, eval chest/diaphram, r/o masses COMPARISON: None available. TECHNIQUE: Contiguous axial images were obtained through the chest without intravenous contrast enhancement. Sagittal and coronal reconstructions were performed. Radiation dose: Total exam DLP = 260.72 mGy-cm. This CT exam was performed using one or more of the following dose reduction techniques: Automated exposure control, adjustment of the mA and/or kV according to patient size, and/or use of iterative reconstruction technique. FINDINGS: LUNGS: There are small hazy nodular opacities noted at the inferior aspect of the right lung upper lobe and in the right lung lower lobe may represent pneumonia or aspiration MEDIASTINUM: . Normal sized heart. Main pulmonary artery unremarkable. No vascular congestion. No lymphadenopathy. Small foci of atherosclerotic calcification noted in the aortic arch. There is moderate diffuse esophageal mucosal thickening noted. There is [id number] dilated esophagus contains air and fluid. Findings suspicious for esophagitis. The possibility of gastroesophageal reflux also should be considered. PLEURA: No pleural fluid. No pneumothorax. BONES: No fracture. No destructive lesion. UPPER ABDOMEN: No evidence of acute pathology at the visualized portion of abdomen. OTHER FINDINGS: None. IMPRESSION: Small nodular opacities noted at the inferior aspect of the right lung upper lobe and in the right lung lower lobe may represent pneumonia or aspiration. Moderate diffuse esophageal mucosal thickening and mild to moderate dilatation of the esophagus contains fluid and air. Small to moderate size hiatus hernia is also noted. The possibility of esophagitis and gastroesophageal acute fracture should be considered.
[2018-10-16] MEDS ORDERED: Sodium Chloride 0.9% 500 ML IV ONE ×2 (11:54→12:10)
[2018-10-16] MEDS: Sodium Chloride 0.9% 1,000 ML IV SCH (14:34)
[2018-10-16] MEDS: (Novolin R) Insulin Human Regular 100 units/ml vial SC SCH ×2 (17:34→22:18)
[2018-10-16] MEDS: (Novolog Mix 70/30) Insulin Aspart/Insulin Aspar 100 units/ml SC SCH (17:35)
--- NOTE | 2018-10-16 23:09 | CP.PCM.HP ---
Present on Admission - Present on Admission Any Indicators Present on Admission: Yes History of Uncontrolled Diabetes: Yes Past Patient History - Infectious Disease Hx of Infectious Diseases: None - Tetanus Immunizations Tetanus Immunization: Unknown - Past Medical History & Family History Past Medical History?: Yes - Past Social History Smoking Status: Former Smoker - CARDIAC Hx Hypercholesterolemia: Yes Hx Hypertension: Yes - PULMONARY Hx Respiratory Disorders: No - NEUROLOGICAL Hx Neurological Disorder: No - HEENT Hx HEENT Problems: No - RENAL Hx Chronic Kidney Disease: No - ENDOCRINE/METABOLIC Hx Diabetes Mellitus Type 2: Yes - HEMATOLOGICAL/ONCOLOGICAL Hx Blood Disorders: No - INTEGUMENTARY Hx Dermatological Problems: Yes Other/Comment: HX: GANGRENE RIGHT FOOT TOE(GREAT) surgery. 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) surgery - MUSCULOSKELETAL/RHEUMATOLOGICAL Hx Musculoskeletal Disorders: No Hx Falls: No - GASTROINTESTINAL Hx Gastritis: Yes - GENITOURINARY/GYNECOLOGICAL Hx Genitourinary Disorders: No - PSYCHIATRIC Hx Substance Use: No - SURGICAL HISTORY Hx Appendectomy: Yes (right 2nd and 3rd toes partially amputated ,and Big toe) - ANESTHESIA Hx Anesthesia: Yes Hx Anesthesia Reactions: No Hx Malignant Hyperthermia: No Meds Allergies/Adverse Reactions: Allergies Allergy/AdvReac Type Severity Reaction Status Date / Time No Known Allergies Allergy Verified 10/16/18 08:38 Results - Vital Signs Recent Vital Signs: Last Vital Signs Temp 97.7 F 10/16/18 16:33 Pulse 80 10/16/18 16:33 Resp 20 10/16/18 16:33 BP 156/85 H 10/16/18 16:33 Pulse Ox 99 10/16/18 16:33 - Labs Result Diagrams: 10/16/18 09:26 10/16/18 09:26 Labs: Laboratory Results - last 24 hr 10/16/18 10/16/18 10/16/18 09:26 09:26 09:26 WBC 5.9 RBC 5.02 Hgb 14.2 Hct 41.6 MCV 82.9 MCH 28.2 MCHC 34.0 RDW 13.9 Plt Count 357 MPV 7.8 Neut % (Auto) 66.1 Lymph % (Auto) 22.9 [place] % (Auto) 9.6 Eos % (Auto) 0.6 Baso % (Auto) 0.8 Neut # (Auto) 3.9 Lymph # (Auto) 1.3 [place] # (Auto) 0.6 Eos # (Auto) 0.0 Baso # (Auto) 0.0 Sodium 125 L Potassium 4.3 Chloride 86 L Carbon Dioxide 27 Anion Gap 18 BUN 7 L Creatinine 1.3 Est GFR ( Amer) > 60 Est GFR (Non-Af Amer) 57 POC Glucose (mg/dL) Random Glucose 289 H Calcium 8.9 Total Bilirubin 2.1 H AST 49 ALT < 6 L D Alkaline Phosphatase 92 Total Protein 7.8 Albumin 4.6 Globulin 3.1 Albumin/Globulin Ratio 1.5 Lipase < 10 L Urine Color Yellow Urine Clarity Clear Urine pH 6.0 Ur Specific [place] 1.003 Urine Protein Negative Urine Glucose (UA) 3+ H Urine Ketones Negative Urine Blood Negative Urine Nitrate Negative Urine Bilirubin Negative Urine Urobilinogen Normal Ur Leukocyte Esterase Neg Urine WBC (Auto) 1 Urine RBC (Auto) < 1 Ur Squamous Epith Cells < 1 10/16/18 10/16/18 16:30 21:49 WBC RBC Hgb Hct MCV MCH MCHC RDW Plt Count MPV Neut % (Auto) Lymph % (Auto) [place] % (Auto) Eos % (Auto) Baso % (Auto) Neut # (Auto) Lymph # (Auto) [place] # (Auto) Eos # (Auto) Baso # (Auto) Sodium Potassium Chloride Carbon Dioxide Anion Gap BUN Creatinine Est GFR ( Amer) Est GFR (Non-Af Amer) POC Glucose (mg/dL) 307 H 117 H Random Glucose Calcium Total Bilirubin AST ALT Alkaline Phosphatase Total Protein Albumin Globulin Albumin/Globulin Ratio Lipase Urine Color Urine Clarity Urine pH Ur Specific [place] Urine Protein Urine Glucose (UA) Urine Ketones Urine Blood Urine Nitrate Urine Bilirubin Urine Urobilinogen Ur Leukocyte Esterase Urine WBC (Auto) Urine RBC (Auto) Ur Squamous Epith Cells
[2018-10-17] MEDS: Sodium Chloride 0.9% 1,000 ML IV SCH ×3 (00:24→19:24)
--- NOTE | 2018-10-17 06:57 | HP ---
CHIEF COMPLAINT: Abdominal pain, hiccups, and nausea x2 days. HISTORY OF PRESENT ILLNESS: This is a 58-year-old black male with history of type 2 diabetes, on insulin; hypertension; hyperlipidemia. He has been noncompliant with his diet, medication, and followup. He was recently discharged from the hospital with severe hyponatremia, dehydration, poorly controlled diabetes, and he was found to have severe intractable hiccups. When the patient left, he was stable, no symptoms, and he was advised to comply with his insulin regimen. According to the patient, he cannot afford to buy the insulin, but I provided him samples about five days ago from my office. The patient today came back again along with nausea and vomiting. He is having intractable hiccups. He is not able to tolerate any food. Along with that, he has generalized weakness, tiredness, anorexia, malaise, and fatigue. He also has polyuria, polydipsia, and polyphagia. He has generalized weakness and dizziness. He is in a lot of distress. The patient denies any joint pain or hip pain. He denies any tingling, numbness, or paresthesia. He denies any history of shortness of breath or chest pain. Mostly, he has upper abdominal pain. He denies any history of skin rash, itchy eyes, or itchy nose. He denies any history of sneezing. PAST MEDICAL HISTORY: Diabetes, on insulin; hypertension; hypothyroidism; intractable hiccups. SOCIAL HISTORY: He smokes. He drinks. FAMILY HISTORY: Negative for premature coronary artery disease or esophageal cancer. PHYSICAL EXAMINATION: GENERAL: A middle-aged male, in distress with abdominal pain, nausea and vomiting. VITAL SIGNS: Blood pressure 144/88, pulse 99, respiratory rate 20, temperature 97.7. SKIN: No rashes. No bruising. No purpura. Normal turgor. HEENT: Atraumatic and normocephalic. Negative pallor. Negative jaundice. Extraocular movements are intact. NECK: Supple. No JVD. No lymph node. No thyromegaly. No carotid bruit. CHEST WALL: Bilateral symmetrical expansion. LUNGS: Clear. No rales. No rhonchi. CARDIOVASCULAR SYSTEM: PMI not localized. S1, S2 regular. No heave. No thrill. ABDOMEN: Soft, nontender. Bowel sounds are positive. EXTREMITIES: No clubbing, cyanosis, or edema. RECTAL: Normal. CENTRAL NERVOUS SYSTEM: Awake, alert, and oriented x3. Cranial nerves II through XII are normal. Power 5/5 x4. Plantars are downgoing. ASSESSMENT: 1. Dehydration with hyponatremia. 2. Poorly controlled diabetes due to noncompliance. 3. Intractable hiccups, rule out diabetic gastroparesis versus erosive gastritis. 4. Hyperlipidemia. PLAN: Admit. Detailed orders are written. Seen and examined. Giovanni Vaughan MD
[2018-10-17] MEDS: (Novolin R) Insulin Human Regular 100 units/ml vial SC SCH ×4 (08:15→21:20)
[2018-10-17] MEDS: (Novolog Mix 70/30) Insulin Aspart/Insulin Aspar 100 units/ml SC SCH ×2 (08:45→15:50)
[2018-10-17 08:47] VITALS: RESP 20
[2018-10-17] MEDS: Enoxaparin 40 mg Syringe SC SCH (10:35)
[2018-10-17 14:05] LABS: BASO # 0.1 K/uL (0.0-0.2); BASO % 0.8 % (0.0-2.0); EOS # 0.1 K/uL (0.0-0.7); EOS % 0.9 % (0.0-4.0); HEMOGLOBIN 12.7 g/dL (12.0-18.0); LYMPH # 1.4 K/uL (1.0-4.3); LYMPH % 20.5 % (20.0-40.0); MEAN CELL VOLUME 82.8 fL (80.0-94.0); MEAN CORPUSCULAR HEMOGLOBIN 28.3 pg (27.0-31.0); MEAN CORPUSCULAR HGB CONC 34.2 g/dL (33.0-37.0); MEAN PLATELET VOLUME 7.6 fL (7.2-11.7); MONO # 0.6 K/uL (0.0-0.8); MONO % 8.5 % (0.0-10.0); NEUT # 4.8 K/uL (1.8-7.0); NEUT % 69.3 % (50.0-75.0); NRBC % 0.1 % (0.0-2.0); RBC 4.46 Mil/uL (4.40-5.90); RED CELL DISTRIBUTION WIDTH 13.9 % (11.5-14.5)
[2018-10-17 14:31] LABS: ALB/GLOB RATIO 1.5 (1.0-2.1); ALBUMIN 3.6 g/dL (3.5-5.0); ALT/SGPT 13 U/L (21-72); AST/SGOT 21 U/L (17-59); BLOOD UREA NITROGEN 5 mg/dL (9-20); CALCIUM 7.9 mg/dl (8.6-10.4); GFR NON-AFRICAN AMERICAN > 60
--- NOTE | 2018-10-17 22:00 | CP.PCM.PN ---
Subjective - Date & Time of Evaluation Date of Evaluation: 10/17/18 Time of Evaluation: 08:00 - Subjective Subjective: dictated Objective - Vital Signs/Intake and Output Vital Signs (last 24 hours): Temp Pulse Resp BP Pulse Ox 97.8 F 94 H 20 128/82 97 10/17/18 15:00 10/17/18 15:00 10/17/18 15:00 10/17/18 15:00 10/17/18 16:12 Intake and Output: 10/17/18 10/18/18 18:59 06:59 Intake Total 1360 1500 Output Total 3000 Balance -1640 1500 - Medications Medications: Current Medications Chlorpromazine (Thorazine) 25 mg PO TID [facility] Last Admin: 10/17/18 17:24 Dose: 25 mg Enoxaparin Sodium (Lovenox) 40 mg SC DAILY [facility] Last Admin: 10/17/18 10:35 Dose: Not Given Famotidine (Pepcid) 20 mg PO BID [facility] Last Admin: 10/17/18 17:23 Dose: 20 mg Sodium Chloride (Sodium Chloride 0.9%) 1,000 mls @ 100 mls/hr IV .Q10H [facility] Last Admin: 10/17/18 19:24 Dose: 100 mls/hr Insulin Aspart (Novolog Mix 70/30 (70/30 Units/Ml)) 20 units SC ACBD [facility] Last Admin: 10/17/18 15:50 Dose: Not Given Insulin Human Regular (Novolin R) 0 unit SC ACHS [facility]; Protocol Last Admin: 10/17/18 21:20 Dose: Not Given Metoclopramide HCl (Reglan) 10 mg IVP Q6 [facility] Last Admin: 10/17/18 17:23 Dose: 10 mg Ondansetron HCl (Zofran Inj) 4 mg IVP Q6 PRN PRN Reason: Nausea/Vomiting Last Admin: 10/17/18 00:24 Dose: 4 mg Rosuvastatin Calcium (Crestor) 5 mg PO HS [facility] Last Admin: 10/17/18 21:16 Dose: 5 mg - Labs Labs: 10/17/18 13:47 10/17/18 13:47
--- NOTE | 2018-10-18 06:19 | PN ---
DATE: 10/17/2018 SUBJECTIVE: The patient intractable hiccups on and off. Right now, he is asymptomatic. He denies any shortness of breath. No sore throat, no runny nose. He had nausea, vomiting. He denies any diarrhea. He has cough. PHYSICAL EXAMINATION: VITAL SIGNS: Blood pressure 128/82, pulse 94, respiratory rate 20, temperature 97.8. LUNGS: Clear. No rales. No rhonchi. CARDIOVASCULAR SYSTEM: S1 and S2, regular. ABDOMEN: Soft, nontender. Bowel sounds are positive. ASSESSMENT: 1. Intractable hiccups, nausea, vomiting. Rule out diabetic gastroparesis. 2. Hypertension. 3. Type 2 diabetes, on insulin. 4. Dehydration. PLAN: IV fluids. Accu-Chek sliding scale. Hold the patient's insulin drop in sugar. Giovanni Vaughan MD
--- NOTE | 2018-10-18 08:40 | PN ---
DATE: 10/18/2018 LOCATION: 568, bed B. SUBJECTIVE: This 58-year-old male, seen and examined in rounds with reported episodes of hyper/hypoglycemia syndrome with persistent burping, hiccups on and off, but less than before with less nausea or vomiting. No reported active bleeding but abdominal pain on and off with postprandial abdominal distention and subsequent decrease of oral intake. The entire chart is reviewed including but not limited to the most recent lab and radiology study results, current and the previous medication list and today's lab results is pending. However, it was reported by the nursing staff that the patient had an episode of hypoglycemia last night of 43. PHYSICAL EXAMINATION: GENERAL: A 58-year-old male, appeared to be awake, alert, oriented. VITAL SIGNS: Afebrile with pulse of 80, respiratory 20-22, blood pressure 150/86. HEENT: Show pale dry oral mucous membrane mildly, nonicteric sclerae. LUNGS: Few scattered crepitation. Decreased air entry at bases. HEART: Positive S1 and S2. ABDOMEN: Soft. Bowel sounds are present. No mass or organomegaly. No rebound tenderness or guarding, but midepigastric and midabdominal tenderness. EXTREMITIES: Without significant clubbing, cyanosis or edema. NEUROLOGIC: No reported new neurological deficits, sensory or motor. IMPRESSION: 1. Poorly controlled diabetes mellitus. 2. Diabetic gastroparesis. 3. Re-exacerbation of peptic ulcer disease, with known history of gastric ulcer. 4. Multiple past medical history including but not limited to hypertension with hyperlipidemia with status post appendectomy. 4. Electrolyte imbalance with hyponatremia due to his original hyperglycemia. 5. Abnormal CAT scan of the chest. SUGGESTIONS: 1. Continue current management. 2. Endocrinology reevaluation. 3. The patient was seen and fully examined initially on 10/17/2018 with the staff in the floor and no need to repeat upper endoscopy in the meantime; however, the patient may need upper GI with small bowel follow through, and Creon 36,000 units 1 tablet p.o. three times a day with meal, increase the dose of Reglan to 50 mg IV every 6 hours or [id number]. 4. Further recommendation to follow. Chad Palafox MD [facility] # [id number]
[2018-10-18] MEDS: (Novolog Mix 70/30) Insulin Aspart/Insulin Aspar 100 units/ml SC SCH ×2 (09:05→17:22)
[2018-10-18] MEDS: (Novolin R) Insulin Human Regular 100 units/ml vial SC SCH ×4 (09:06→21:18)
[2018-10-18] MEDS: Enoxaparin 40 mg Syringe SC SCH (09:07)
[2018-10-18 12:17] LABS: ALB/GLOB RATIO 1.5 (1.0-2.1); ALBUMIN 4.5 g/dL (3.5-5.0); ALT/SGPT 8 U/L (21-72); AST/SGOT 36 U/L (17-59); BLOOD UREA NITROGEN 5 mg/dL (9-20); CALCIUM 8.6 mg/dl (8.6-10.4); GFR NON-AFRICAN AMERICAN > 60
[2018-10-18] MEDS: Sodium Chloride 0.9% 1,000 ML IV SCH ×2 (17:23→20:44)
--- NOTE | 2018-10-18 20:53 | CARD ---
APPROVED REPORT Date of service: 10/16/2018 EKG Measurement Heart [id number] <Conclusion> Normal sinus rhythm Normal ECG
--- NOTE | 2018-10-18 21:23 | CP.PCM.PN ---
Subjective - Date & Time of Evaluation Date of Evaluation: 10/18/18 Time of Evaluation: 08:00 - Subjective Subjective: dictated Objective - Vital Signs/Intake and Output Vital Signs (last 24 hours): Temp Pulse Resp BP Pulse Ox 97.6 F 81 20 155/87 H 100 10/18/18 15:00 10/18/18 15:00 10/18/18 15:00 10/18/18 15:00 10/18/18 16:14 - Medications Medications: Current Medications Chlorpromazine (Thorazine) 25 mg PO TID FORMERLY [facility], [facility]1983 Last Admin: 10/18/18 17:23 Dose: 25 mg Enoxaparin Sodium (Lovenox) 40 mg SC DAILY FOR[facility]LY [facility], [facility]1983 Last Admin: 10/18/18 09:07 Dose: 40 mg Famotidine (Pepcid) 20 mg PO BID FOR[facility], [facility]1983 Last Admin: 10/18/18 17:23 Dose: 20 mg Sodium Chloride (Sodium Chloride 0.9%) 1,000 mls @ 100 mls/hr IV .Q10H FOR[facility], [facility]1983 Last Admin: 10/18/18 20:44 Dose: 100 mls/hr Insulin Human Regular (Novolin R) 0 unit SC ACHS FOR[facility], [facility]1983; Protocol Last Admin: 10/18/18 21:18 Dose: Not Given Metoclopramide HCl (Reglan) 10 mg IVP Q6 FOR[facility], [facility] Last Admin: 10/18/18 17:23 Dose: 10 mg Morphine Sulfate (Morphine) 2 mg IVP Q4 PRN PRN Reason: Pain, severe (8-10) Last Admin: 10/18/18 20:41 Dose: 2 mg Ondansetron HCl (Zofran Inj) 4 mg IVP Q6 PRN PRN Reason: Nausea/Vomiting Last Admin: 10/18/18 18:05 Dose: 4 mg Rosuvastatin Calcium (Crestor) 5 mg PO HS [facility], [facility] Last Admin: 10/18/18 21:18 Dose: Not Given - Labs Labs: 10/17/18 13:47 10/18/18 11:38
--- NOTE | 2018-10-19 03:01 | PN ---
DATE: 10/18/2018 SUBJECTIVE: Nikolas Dunaway is having intractable hiccups, intractable nausea and vomiting. He is not tolerating any p.o. There is a bowl on the side with vomitus which is clear liquid. The patient is in distress. The patient is not feeling well. PHYSICAL EXAMINATION: VITAL SIGNS: Blood pressure 155/87, pulse 81, respiratory rate 20, temperature 97.6. LUNGS: Clear. No rales. No rhonchi. CARDIOVASCULAR SYSTEM: S1 and S2, regular. ABDOMEN: Bowel sounds are regular. Abdomen is soft, nontender. No visceromegaly. ASSESSMENT: 1. Intractable hiccup, nausea and vomiting, rule out diabetic gastroparesis. 2. Poorly controlled diabetes because of the patient's inability to tolerate diet. He has been having episode of hypoglycemia. 3. Hypertension. PLAN: We will discontinue diet. We will put the patient on strict n.p.o. We will continue Reglan round the clock plus Zofran p.r.n. plus p.r.n. chlorpromazine. The patient also has low sodium due to loss of sodium in the vomitus with poor oral intake, so we will supplement sodium chloride, and we will repeat labs tomorrow morning. We will convert the patient's status to an admission. We will monitor the patient and discuss with Dr. Bliss for further plan of care. Giovanni Vaughan MD
[2018-10-19] MEDS: Sodium Chloride 0.9% 1,000 ML IV SCH ×4 (03:56→17:43)
[2018-10-19 07:51] VITALS: O2SAT 96
[2018-10-19] MEDS: (Novolin R) Insulin Human Regular 100 units/ml vial SC SCH ×3 (08:00→16:09)
[2018-10-19 08:13] LABS: BASO % 0.4 % (0.0-2.0); EOS % 0.7 % (0.0-4.0); HEMOGLOBIN 13.1 g/dL (12.0-18.0); LYMPH # 1.4 K/uL (1.0-4.3); LYMPH % 19.2 % (20.0-40.0); MEAN CELL VOLUME 82.8 fL (80.0-94.0); MEAN CORPUSCULAR HEMOGLOBIN 27.5 pg (27.0-31.0); MEAN CORPUSCULAR HGB CONC 33.2 g/dL (33.0-37.0); MEAN PLATELET VOLUME 7.6 fL (7.2-11.7); MONO # 0.4 K/uL (0.0-0.8); MONO % 5.6 % (0.0-10.0); NEUT # 5.2 K/uL (1.8-7.0); NEUT % 74.1 % (50.0-75.0); NRBC % 0.1 % (0.0-2.0); RBC 4.78 Mil/uL (4.40-5.90); RED CELL DISTRIBUTION WIDTH 13.8 % (11.5-14.5); WHITE BLOOD COUNT 7.1 K/uL (4.8-10.8)
[2018-10-19 08:26] LABS: ALB/GLOB RATIO 1.5 (1.0-2.1); ALBUMIN 3.6 g/dL (3.5-5.0); ALT/SGPT < 6 U/L (21-72); AST/SGOT 33 U/L (17-59); BLOOD UREA NITROGEN 7 mg/dL (9-20); CALCIUM 8.6 mg/dl (8.6-10.4); GFR NON-AFRICAN AMERICAN > 60
[2018-10-19] MEDS: Enoxaparin 40 mg Syringe SC SCH (09:56)
[2018-10-19] MEDS: LIPASE/PROTEASE/AMYLASE 21,000 U ECC PO SCH ×3 (10:11→17:40)
[2018-10-19] MEDS ORDERED: Barium Sulfate for Susp 98% w/w 340g Bottle ONE ×2 (11:52→12:15)
[2018-10-19] MEDS ORDERED: Barium Sulfate for Susp 96% w/w 176g Bottle PR ONE ×2 (11:53→12:15)
--- NOTE | 2018-10-19 12:17 | PN ---
DATE: 10/19/2018 LOCATION: 568, bed B. SUBJECTIVE: This is a 58-year-old male, seen and examined in rounds with persistent episode of nausea, dyspepsia, vomiting, and regurgitation again associated with some abdominal pain on and off with discomfort. The entire chart is reviewed including but not limited to the most recent lab and radiology study results, current and the previous medication list, current and the previous medical events. Today's lab results showed normal CBC, but low sodium of 126, BUN 7, blood glucose level 275 with low total protein of 6. PHYSICAL EXAMINATION: GENERAL: A 58-year-old male, awake, alert and oriented, somewhat agitated due to his complaint and clinical presentation. VITAL SIGNS: Afebrile with pulse of 100, respiratory rate 20 to 22, blood pressure of 110/68. HEENT: Pale dry oral mucous membrane mildly, nonicteric sclerae. LUNGS: Few scattered crepitation. Decreased air entry at bases. HEART: Positive S1 and S2. ABDOMEN: Soft with mild generalized slight tenderness and distention. No mass or organomegaly. No rebound tenderness or guarding. EXTREMITIES: Without significant clubbing, cyanosis, or edema. No reported new neurological deficits, sensory or motor. IMPRESSION: 1. Poorly controlled diabetes mellitus. 2. Re-exacerbation of peptic ulcer disease with diabetic gastroparesis. 3. Known history of hypertension. 4. History of hyperlipidemia with status post appendectomy. 5. Recently diagnosed gastric ulcer. 6. Electrolyte imbalance with severe hyponatremia which can contribute to the patient's symptoms, also of nausea and vomiting. 7. Abnormal CAT scan of the chest. SUGGESTIONS: 1. Continue current management. 2. Upper GI with small bowel follow-through, adding esophagogram. 3. The patient may need gastric pacemaker if his symptoms persist, that to be most likely done in [facility] in [place], [place], I will try to contact them again today. Otherwise, increase the dose of Reglan in the meantime. Further recommendation to follow. Chad Palafox MD
--- NOTE | 2018-10-19 13:14 | CT ---
Date of service: 10/19/2018 PROCEDURE: CT HEAD WITHOUT CONTRAST. 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 TECHNIQUE: Axial computed tomography images were obtained through the head/brain without intravenous contrast. Radiation dose: Total exam DLP = 1102.54 mGy-cm. This CT exam was performed using one or more of the following dose reduction techniques: Automated exposure control, adjustment of the mA and/or kV according to patient size, and/or use of iterative reconstruction technique. FINDINGS: HEMORRHAGE: No intracranial hemorrhage. BRAIN: Diffuse atrophy with prominence of the ventricles and sulci noted. No mass effect or edema. Intracranial atherosclerosis. Scattered periventricular and subcortical white matter hypodensities, which are nonspecific, but often seen with chronic microvascular ischemic disease. Please note that MRI with diffusion imaging is more sensitive in the detection of acute ischemic event. VENTRICLES: No hydrocephalus. CALVARIUM: Unremarkable. PARANASAL SINUSES: Unremarkable as visualized. No significant inflammatory changes. MASTOID AIR CELLS: Unremarkable as visualized. No inflammatory changes. OTHER FINDINGS: Soft tissue swelling, right scalp vertex. IMPRESSION: No acute intracranial pathology identified. Soft tissue swelling, right scalp vertex. Generalized atrophy. Nonspecific white matter changes.
--- NOTE | 2018-10-19 13:45 | RAD ---
Date of service: 10/19/2018 HISTORY: PT FOR UGI. 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 PT WAS RAPID RESPONSE. COMPARISON: None available. TECHNIQUE: 1 view obtained. FINDINGS: Examination was performed initially preliminarily prior to attempting upper GI and small-bowel follow-through in this patient however the patient became dizzy and could not continue. BOWEL: Nonobstructive bowel gas pattern. No large free intrarenal gas collection appreciable. Limited retained fecal material scattered throughout large-bowel segments. No abnormal intra-abdominal calcifications. BONES: Normal. OTHER FINDINGS: None. IMPRESSION: Nonobstructive bowel gas pattern. Limited retained fecal material scattered throughout various large-bowel segments.
[2018-10-19] MEDS ORDERED: SILVASORB ANTIMICROBIAL WOUND GEL TOP SCH ×2 (15:00)
[2018-10-19 15:40] VITALS: BP 156/82; PULSE 108; TEMP 98.6
--- NOTE | 2018-10-19 16:01 | PCM.RRT ---
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 Per staff, patient was standing upright for series imaging, was upright for about 2 minutes when he suddenly felt dizzy and lost consciousness. LOC lasted "a few seconds" per staff. Patient fell onto the floor on his R side. Staff witnessed fall, denies any tremors/eye rolling, tongue biting, loss of urinary or fecal continence. Patient is a diabetic had been NPO the night prior for study with night-time insulin held. Vitals: 150/67 HR 92 RR 20 100% O2 on RA BG 330 EKG obtained showed NSR with HR 80s-90s. CT head without contrast was ordered to r/o hemorrhage. Patient was alert and oriented during encounter, responded appropriately to questions being asked, states he felt dizzy from not eating the night prior. - Neurological Status (Select all that apply): Alert, Oriented - Respiratory Oxygen Delivery Method: Room Air - Constitutional Appears: Non-toxic, No Acute Distress - Head Head Exam: ATRAUMATIC, NORMAL INSPECTION, NORMOCEPHALIC - Eyes Eye Exam: EOMI, Normal appearance, PERRL - Respiratory Exam Respiratory Exam: Clear to Ausculation Bilateral, NORMAL BREATHING PATTERN. absent: Accessory Muscle Use, Rales, Rhonchi, Wheezes, Respiratory Distress, Stridor - Cardiovascular Exam Cardiovascular Exam: REGULAR RHYTHM, +S1, +S2 - GI/Abdominal Exam GI & Abdominal Exam: Soft, Normal Bowel Sounds. absent: Distended, Firm, Guarding, Rigid, Tenderness, Rebound - Neurological Exam Neurological Exam: Alert, Awake, CN II-XII Intact, Oriented x3 - Extremities Exam Extremities Exam: Normal Capillary Refill, Normal Inspection Plan - Assessment of Findings&Treatment Plan -CT head w/o contrast to r/o hemorrhage
[2018-10-19] MEDS ORDERED: (Novolog Mix 70/30) Insulin Aspart/Insulin Aspar 100 units/ml SC ONE (18:25)
[2018-10-19] MEDS ORDERED: (Novolog Mix 70/30) Insulin Aspart/Insulin Aspar 100 units/ml SC SCH (22:00)
--- NOTE | 2018-10-19 22:33 | CP.PCM.DIS ---
Provider - Provider Date of Admission: 10/18/18 19:55 Attending physician: Giovanni Vaughan MD Consults: 10/16/18 14:03 Nursing Referral for Wound Care Routine Comment: Physician Instructions: Reason For Exam: right foot ulcer 10/17/18 08:48 Gastroenterology Consult Routine Comment: Consulting Provider: Chad Bliss Consulting Physician: Chad Bliss Reason for Consult: gastritis, nausea, vomiting Time Spent in preparation of Discharge (in minutes): 30 Hospital Course - Lab Results Lab Results: Most Recent Lab Values WBC 7.1 K/uL (4.8-10.8) 10/19/18 07:50 RBC 4.78 Mil/uL (4.40-5.90) 10/19/18 07:50 Hgb 13.1 g/dL (12.0-18.0) 10/19/18 07:50 Hct 39.6 % (35.0-51.0) 10/19/18 07:50 MCV 82.8 fL (80.0-94.0) 10/19/18 07:50 MCH 27.5 pg (27.0-31.0) 10/19/18 07:50 MCHC 33.2 g/dL (33.0-37.0) 10/19/18 07:50 RDW 13.8 % (11.5-14.5) 10/19/18 07:50 Plt Count 360 K/uL (130-400) 10/19/18 07:50 MPV 7.6 fL (7.2-11.7) 10/19/18 07:50 Neut % (Auto) 74.1 % (50.0-75.0) 10/19/18 07:50 Lymph % (Auto) 19.2 % (20.0-40.0) L 10/19/18 07:50 [place] % (Auto) 5.6 % (0.0-10.0) 10/19/18 07:50 Eos % (Auto) 0.7 % (0.0-4.0) 10/19/18 07:50 Baso % (Auto) 0.4 % (0.0-2.0) 10/19/18 07:50 Neut # (Auto) 5.2 K/uL (1.8-7.0) 10/19/18 07:50 Lymph # (Auto) 1.4 K/uL (1.0-4.3) 10/19/18 07:50 [place] # (Auto) 0.4 K/uL (0.0-0.8) 10/19/18 07:50 Eos # (Auto) 0.0 K/uL (0.0-0.7) 10/19/18 07:50 Baso # (Auto) 0.0 K/uL (0.0-0.2) 10/19/18 07:50 Sodium 126 mmol/L (132-148) L 10/19/18 07:50 Potassium 4.8 mmol/L (3.6-5.2) 10/19/18 07:50 Chloride 92 mmol/L (98-107) L 10/19/18 07:50 Carbon Dioxide 24 mmol/L (22-30) 10/19/18 07:50 Anion Gap 15 (10-20) 10/19/18 07:50 BUN 7 mg/dL (9-20) L 10/19/18 07:50 Creatinine 1.2 mg/dL (0.8-1.5) 10/19/18 07:50 Est GFR ( Amer) > 60 10/19/18 07:50 Est GFR (Non-Af Amer) > 60 10/19/18 07:50 POC Glucose (mg/dL) > 500 mg/dL (65-110) H* 10/19/18 18:20 Random Glucose 283 mg/dL (75-110) H 10/19/18 07:50 Calcium 8.6 mg/dl (8.6-10.4) 10/19/18 07:50 Phosphorus 2.8 mg/dL (2.5-4.5) 10/19/18 07:50 Magnesium 1.9 mg/dL (1.6-2.3) 10/19/18 07:50 Total Bilirubin 1.2 mg/dL (0.2-1.3) 10/19/18 07:50 AST 33 U/L (17-59) 10/19/18 07:50 ALT < 6 U/L (21-72) L D 10/19/18 07:50 Alkaline Phosphatase 100 U/L (38-126) 10/19/18 07:50 Total Protein 6.0 g/dL (6.3-8.3) L 10/19/18 07:50 Albumin 3.6 g/dL (3.5-5.0) 10/19/18 07:50 Globulin 2.4 gm/dL (2.2-3.9) 10/19/18 07:50 Albumin/Globulin Ratio 1.5 (1.0-2.1) 10/19/18 07:50 Lipase < 10 U/L (23-300) L 10/16/18 09:26 Urine Color Yellow (YELLOW) 10/16/18 09:26 Urine Clarity Clear (Clear) 10/16/18 09:26 Urine pH 6.0 (5.0-8.0) 10/16/18 09:26 Ur Specific [place] 1.003 (1.003-1.030) 10/16/18 09:26 Urine Protein Negative mg/dL (NEGATIVE) 10/16/18 09:26 Urine Glucose (UA) 3+ mg/dL (Normal) H 10/16/18 09:26 Urine Ketones Negative mg/dL (NEGATIVE) 10/16/18 09:26 Urine Blood Negative (NEGATIVE) 10/16/18 09:26 Urine Nitrate Negative (NEGATIVE) 10/16/18 09:26 Urine Bilirubin Negative (NEGATIVE) 10/16/18 09:26 Urine Urobilinogen Normal mg/dL (0.2-1.0) 10/16/18 09:26 Ur Leukocyte Esterase Neg Lauren/uL (Negative) 10/16/18 09:26 Urine WBC (Auto) 1 /hpf (0-5) 10/16/18 09:26 Urine RBC (Auto) < 1 /hpf (0-3) 10/16/18 09:26 Ur Squamous Epith Cells < 1 /hpf (0-5) 10/16/18 09:26 Discharge Exam - Head Exam Head Exam: ATRAUMATIC, NORMAL INSPECTION, NORMOCEPHALIC Discharge Plan - Follow Up Plan Condition: GOOD Disposition: ELOPED FROM NURSING UNIT Instructions: Hiccups Referrals: Chad Bliss [Staff Provider] - Giovanni Vaughan MD [Staff Provider] -
--- NOTE | 2018-10-20 05:48 | DS ---
DISCHARGE DIAGNOSES: 1. Poorly controlled diabetes. 2. Intractable hiccups, pseudotabetic gastroparesis. 3. Hypertension. 4. Dehydration, hyponatremia. HISTORY OF PRESENT ILLNESS: This is a 58-year-old male, well known to me with history of hypertension, type 2 diabetes, on insulin. He is noncompliant with his diet, medication and followup. He came in because of polyuria, polydipsia, polyphagia, nausea, vomiting, and hiccups, intractable, nonstop. He was admitted to the floor, started on IV fluids, Accu-Check sliding scale, antiemetics, Reglan, Zofran, Protonix, underwent GI evaluation. The patient's condition did not improve. The patient was noncompliant. His nausea, vomiting persisted, and attempt was made to correct his condition medically as there was no other safe alternative. The patient underwent upper GI series with esophagogram that was deferred because of lack of cooperation. The patient signed out against medical advise and he went home. PHYSICAL EXAMINATION: LUNGS: Clear. CARDIOVASCULAR SYSTEM: S1, S2. Regular. ABDOMEN: Soft, nontender. Bowel sounds are not exaggerated. Giovanni Vaughan MD
[2018-10-20] MEDS ORDERED: (Novolog Mix 70/30) Insulin Aspart/Insulin Aspar 100 units/ml SC SCH (07:30)
== END 2018-10-19 19:55 | disposition left against medical advice (07) | DRG 74 ==
LOC: C.ER 08:36 → C.9E 11:50 → C.5S 12:34 → OBSVTOIN 10-18 19:55
PROVIDERS: ADMIT Internal Medicine; ATTEND Internal Medicine
DX: E11.43 Type 2 diabetes mellitus with diabetic autonomic (poly)neuropathy (principal); K31.84 Gastroparesis; E87.1 Hypo-osmolality and hyponatremia; E86.0 Dehydration; E11.649 Type 2 diabetes mellitus with hypoglycemia without coma; E03.9 Hypothyroidism, unspecified; E11.65 Type 2 diabetes mellitus with hyperglycemia; I10 Essential (primary) hypertension; K25.9 Gastric ulcer, unspecified as acute or chronic, without hemorrhage or perforation; E78.5 Hyperlipidemia, unspecified; E78.00 Pure hypercholesterolemia, unspecified; F17.200 Nicotine dependence, unspecified, uncomplicated; Z79.4 Long term (current) use of insulin; R06.6 Hiccough; Z91.11 Patient's noncompliance with dietary regimen; Z90.49 Acquired absence of other specified parts of digestive tract; Z91.19 Patient's noncompliance with other medical treatment and regimen; Z87.11 Personal history of peptic ulcer disease

== ENCOUNTER 2018-10-25 14:22 | Inpatient (IN) | payer MEDICARE ==
[2018-10-25 14:23] VITALS: BMI 23.1
--- NOTE | 2018-10-25 15:11 | C.PDOC ---
History Of Present Illness PERSIST EPIG PAIN, NON BILIOUS VOMITING AND CONSTANT BURPING. S/P [facility] FROM INPT 10/19 FOR SAME. CURRENT SX SIM TO PRIOR. COMPLIANT W GI MEDS EXAM NONTOXIC. ACTIVE CONSTANT BURPING. DRINKING WATER WO DIFF HEENT ANICTERIC ABD NEG REMAINDER NEG Time Seen by Provider: 10/25/18 14:48 Chief Complaint (Nursing): Abdominal Pain History Per: Patient History/Exam Limitations: no limitations Onset/Duration Of Symptoms: Days Current Symptoms Are (Timing): Still Present Severity: Moderate Past Medical History Reviewed: Historical Data, Nursing Documentation, Vital Signs Vital Signs: Last Vital Signs Temp 98.2 F 10/25/18 14:30 Pulse 78 10/25/18 14:30 Resp 18 10/25/18 14:30 BP 108/69 10/25/18 14:30 Pulse Ox 97 10/25/18 14:30 - Medical History PMH: Diabetes, Gastritis, Gastrointestinal Ulcer, HTN, Hypercholesterolemia Denies: Chronic Kidney Disease Surgical History: Appendectomy (right 2nd and 3rd toes partially amputated ,and Big toe) - [facility] Procedures DETACHMENT AT RIGHT 1ST TOE, LOW, OPEN APPROACH (08/20/17) EXCISION OF STOMACH, ENDO, DIAGN (08/17/18) Family History: States: No Known Family Hx - Social History Hx Alcohol Use: Yes (weekends) Hx Substance Use: No - Immunization History Hx Tetanus Toxoid Vaccination: No Hx Influenza Vaccination: No Hx Pneumococcal Vaccination: No Review Of Systems Except As Marked, All Systems Reviewed And Found Negative. Constitutional: Negative for: Fever, Chills Gastrointestinal: Positive for: Vomiting, Abdominal Pain Physical Exam - Physical Exam Appears: Non-toxic, Other (active constant burping, drinking with water without difficulty) Skin: Normal Color, Warm, Dry Head: Atraumatic, Normacephalic Eye(s): bilateral: Normal Inspection, Other (anicteric) Oral Mucosa: Moist Neck: Supple Chest: Symmetrical Cardiovascular: Rhythm Regular Respiratory: Normal Breath Sounds, No Rales, No Rhonchi, No Wheezing Gastrointestinal/Abdominal: Normal Exam, Soft, No Tenderness, No Guarding, No Rebound Neurological/Psych: Oriented x3, Normal Speech ED Course And Treatment - Laboratory Results Result Diagrams: 10/25/18 15:24 10/25/18 15:24 Interpretation Of Abnormal: HYPONATREMIA WORSE THAN PREVIOUS O2 Sat by Pulse Oximetry: 97 (RA) Pulse Ox Interpretation: Normal Progress - Re-Evaluation Re-evaluation Note: 10/25/18 15:12 PS TOOK ROUTINE GI MEDS TODAY - Data Reviewed Data Reviewed: Lab, Old records Medical Decision Making Medical Decision Making: Plan: --Labs --Zofran IV --IV Fluids Disposition Counseled Patient/Family Regarding: Studies Performed, Diagnosis - Disposition Disposition: HOSPITALIZED Disposition Time: 16:05 Condition: SERIOUS Forms: [facility] (Telugu) - POA Present On Arrival: Poor Glycemic Control - Clinical Impression Clinical Impression: Nausea & vomiting, Diabetes mellitus, insulin dependent (IDDM), uncontrolled, Hyponatremia - Scribe Statement The provider has reviewed the documentation as recorded by the Dennis Handy Provider Attestation: All medical record entries made by the Laureenibe were at my direction and personally dictated by me. I have reviewed the chart and agree that the record accurately reflects my personal performance of the history, physical exam, medical decision making, and the department course for this patient. I have also personally directed, reviewed, and agree with the discharge instructions and disposition.
[2018-10-25] MEDS ORDERED: Sodium Chloride 0.9% 1,000 ML ONE (15:25)
[2018-10-25 15:27] LABS: BASO # 0.1 K/uL (0.0-0.2); BASO % 0.4 % (0.0-2.0); EOS % 0.3 % (0.0-4.0); HEMOGLOBIN 13.5 g/dL (12.0-18.0); LYMPH # 1.2 K/uL (1.0-4.3); LYMPH % 9.4 % (20.0-40.0); MEAN CORPUSCULAR HEMOGLOBIN 28.3 pg (27.0-31.0); MEAN CORPUSCULAR HGB CONC 35.3 g/dL (33.0-37.0); MEAN PLATELET VOLUME 7.3 fL (7.2-11.7); MONO # 0.7 K/uL (0.0-0.8); MONO % 5.2 % (0.0-10.0); NEUT # 10.7 K/uL (1.8-7.0); NEUT % 84.7 % (50.0-75.0); NRBC % 0.1 % (0.0-2.0); PLATELET COUNT 442 K/uL (130-400); RBC 4.78 Mil/uL (4.40-5.90); RED CELL DISTRIBUTION WIDTH 13.9 % (11.5-14.5)
[2018-10-25 15:28] LABS: MEAN CELL VOLUME 80.1 fL (80.0-94.0); WHITE BLOOD COUNT 12.6 K/uL (4.8-10.8)
[2018-10-25] MEDS: Sodium Chloride 0.9% 1,000 ML IV SCH (15:28)
[2018-10-25 15:45] LABS: BLOOD UREA NITROGEN 10 mg/dL (9-20); CALCIUM 8.9 mg/dl (8.6-10.4); GFR NON-AFRICAN AMERICAN 57
[2018-10-25 16:02] LABS: LYMPHOCYTE 8 % (20-40); MONOCYTE 3 % (0-10); NEUTROPHIL 89 % (50-75); PLATELET ESTIMATE NORMAL (NORMAL); TOTAL CELLS COUNTED 100
[2018-10-25] MEDS ORDERED: Sodium Chloride 0.9% 1,000 ML IV ONE (16:04)
[2018-10-25] MEDS: Benzocaine/Menthol (Cepacol) Lozenge PO PRN (20:20)
[2018-10-25] MEDS: Rosuvastatin Calcium 2.5 mg Tab PO SCH (21:14)
[2018-10-25] MEDS: (Novolog) Insulin Aspart, Recombinant 100 u/ml 10 ml vial SC SCH (21:16)
--- NOTE | 2018-10-25 21:44 | CP.PCM.HP ---
Present on Admission - Present on Admission Any Indicators Present on Admission: Yes History of Uncontrolled Diabetes: Yes Past Patient History - Infectious Disease Hx of Infectious Diseases: None - Tetanus Immunizations Tetanus Immunization: Unknown - Past Medical History & Family History Past Medical History?: Yes - Past Social History Smoking Status: Former Smoker - CARDIAC Hx Hypercholesterolemia: Yes Hx Hypertension: Yes - PULMONARY Hx Respiratory Disorders: No - NEUROLOGICAL Hx Neurological Disorder: No - HEENT Hx HEENT Problems: No - RENAL Hx Chronic Kidney Disease: No - ENDOCRINE/METABOLIC Hx Endocrine Disorders: Yes Hx Diabetes Mellitus Type 2: Yes - HEMATOLOGICAL/ONCOLOGICAL Hx Blood Disorders: No - INTEGUMENTARY Hx Dermatological Problems: Yes Other/Comment: HX: GANGRENE RIGHT FOOT TOE(GREAT) surgery. 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) surgery - MUSCULOSKELETAL/RHEUMATOLOGICAL Hx Musculoskeletal Disorders: No Hx Falls: No - GASTROINTESTINAL Hx Gastritis: Yes - GENITOURINARY/GYNECOLOGICAL Hx Genitourinary Disorders: No - PSYCHIATRIC Hx Substance Use: No - SURGICAL HISTORY Hx Appendectomy: Yes (right 2nd and 3rd toes partially amputated ,and Big toe) - ANESTHESIA Hx Anesthesia: Yes Hx Anesthesia Reactions: No Hx Malignant Hyperthermia: No Meds Allergies/Adverse Reactions: Allergies Allergy/AdvReac Type Severity Reaction Status Date / Time No Known Allergies Allergy Verified 10/25/18 14:36 Results - Vital Signs Recent Vital Signs: Last Vital Signs Temp 97.7 F 10/25/18 19:25 Pulse 87 10/25/18 19:25 Resp 18 10/25/18 19:25 BP 141/81 10/25/18 19:25 Pulse Ox 95 10/25/18 19:25 - Labs Result Diagrams: 10/25/18 15:24 10/25/18 15:24 Labs: Laboratory Results - last 24 hr 10/25/18 10/25/18 10/25/18 15:24 15:24 20:55 WBC 12.6 H D RBC 4.78 Hgb 13.5 Hct 38.3 MCV 80.1 D MCH 28.3 MCHC 35.3 RDW 13.9 Plt Count 442 H MPV 7.3 Neut % (Auto) 84.7 H Lymph % (Auto) 9.4 L [place] % (Auto) 5.2 Eos % (Auto) 0.3 Baso % (Auto) 0.4 Neut # (Auto) 10.7 H Lymph # (Auto) 1.2 [place] # (Auto) 0.7 Eos # (Auto) 0.0 Baso # (Auto) 0.1 Neutrophils % (Manual) 89 H Lymphocytes % (Manual) 8 L Monocytes % (Manual) 3 Platelet Estimate Normal Sodium 112 L* Potassium 4.1 Chloride 68 L D Carbon Dioxide 31 H Anion Gap 18 BUN 10 Creatinine 1.3 Est GFR ( Amer) > 60 Est GFR (Non-Af Amer) 57 POC Glucose (mg/dL) 385 H Random Glucose 381 H D Calcium 8.9
[2018-10-25 23:57] VITALS: RESP 20
[2018-10-26] MEDS: Benzocaine/Menthol (Cepacol) Lozenge PO PRN ×3 (00:14→13:56)
[2018-10-26] MEDS: Sodium Chloride 0.9% 1,000 ML IV SCH ×4 (01:31→13:59)
--- NOTE | 2018-10-26 04:38 | HP ---
CHIEF COMPLAINT: Intractable nausea and vomiting. HISTORY OF PRESENT ILLNESS: This is a 58-year-old male, well known to me with a history of type 2 diabetes, on insulin, hypertension and hyperlipidemia. The patient has been noncompliant. He recently absconded from [place], and the patient went home. He did not follow up with any physician, and he has not been taking medications on a regular basis. He continued to have nausea, vomiting and burping. He started getting weak, dizzy, headache and fatigued. He continued to drink a lot of water. He denies any fever, chills or rigors. He denies any chest pain. He has a history of polyuria, polydipsia and polyphagia. He has generalized weakness, dizziness and headache. He denies any history of cough, sore throat or runny nose. There is no history of head injury or loss of consciousness. He has tingling and numbness in the feet. He has intractable hiccups. He has abdominal pain each time he hiccups or burps. He denies any history of joint pain, hip pain, dysuria, hematuria or pyuria. PAST MEDICAL HISTORY: Type 2 diabetes, hypertension, hyperlipidemia. SOCIAL HISTORY: He smokes. He drinks. CURRENT MEDICATIONS: Thorazine p.r.n. for hiccups, NovoLog 70/30 of 30 units twice a day, Pepcid, Zofran, Pancrease, Reglan, Zocor, metformin. PHYSICAL EXAMINATION: GENERAL: A middle-aged male, in distress with intractable nausea and hiccups. VITAL SIGNS: Blood pressure 141/81, pulse 87, respiratory rate 18, temperature 97.7. SKIN: Dry turgor. HEENT: Atraumatic, normocephalic. Negative pallor. Negative jaundice. Extraocular movements are intact. NECK: Supple. No JVD. No lymph node. No thyromegaly. CHEST WALL: Bilateral symmetrical expansion. LUNGS: Clear. No rales. No rhonchi. CARDIOVASCULAR SYSTEM: No heave. No thrill. S1 and S2, regular. ABDOMEN: Exaggerated bowel sounds. There is diffuse tenderness. There is no guarding, no rebound, no rigidity, no masses. RECTAL: Negative for occult blood. EXTREMITIES: No clubbing, cyanosis or edema. CENTRAL NERVOUS SYSTEM: Awake, alert, oriented x3. Cranial nerves II through XII are normal. Power 5/5 x4. Plantars are downgoing. ASSESSMENT: 1. Severe hyponatremia which is a combination of dehydration, poor oral intake, gastrointestinal losses plus high sugar. 2. Poorly controlled diabetes. 3. Intractable hiccups. 4. Hypertension. PLAN: Admit. Detailed orders are written. We will start the patient on gentle IV fluids, provide rapid increase in sodium and, in the meantime, Accu-Chek sliding scale insulin. We will get a GI evaluation and repeat labs tomorrow morning, monitor the patient. Giovanni Vaughan MD
[2018-10-26 07:41] LABS: BASO % 0.4 % (0.0-2.0); EOS % 0.3 % (0.0-4.0); HEMOGLOBIN 13.2 g/dL (12.0-18.0); LYMPH # 0.9 K/uL (1.0-4.3); LYMPH % 10.6 % (20.0-40.0); MEAN CELL VOLUME 81.6 fL (80.0-94.0); MEAN CORPUSCULAR HEMOGLOBIN 28.4 pg (27.0-31.0); MEAN CORPUSCULAR HGB CONC 34.8 g/dL (33.0-37.0); MEAN PLATELET VOLUME 7.7 fL (7.2-11.7); MONO # 0.5 K/uL (0.0-0.8); MONO % 6.7 % (0.0-10.0); NEUT # 6.6 K/uL (1.8-7.0); NRBC % 0.2 % (0.0-2.0); RBC 4.65 Mil/uL (4.40-5.90); WHITE BLOOD COUNT 8.1 K/uL (4.8-10.8)
[2018-10-26 08:02] LABS: BLOOD UREA NITROGEN 9 mg/dL (9-20); CALCIUM 8.9 mg/dl (8.6-10.4); GFR NON-AFRICAN AMERICAN > 60
[2018-10-26] MEDS: (Novolog) Insulin Aspart, Recombinant 100 u/ml 10 ml vial SC SCH ×4 (08:14→21:48)
[2018-10-26] MEDS ORDERED: (Novolog Mix 70/30) Insulin Aspart/Insulin Aspar 100 units/ml SC SCH (08:15)
[2018-10-26] MEDS: LIPASE/PROTEASE/AMYLASE 4,200 U ECC PO SCH ×3 (10:47→18:00)
[2018-10-26] MEDS: Enoxaparin 40 mg Syringe SC SCH (10:47)
[2018-10-26 11:38] LABS: BARBITURATES, UR NEGATIVE (NEGATIVE); BENZODIAZEPINES, UR NEGATIVE (NEGATIVE); PHENCYCLIDINE, UR NEGATIVE (NEGATIVE)
[2018-10-26 12:14] LABS: OPIATES, UR POSITIVE (NEGATIVE)
[2018-10-26] MEDS: (Novolog Mix 70/30) Insulin Aspart/Insulin Aspar 100 units/ml SC SCH ×2 (12:22→17:36)
--- NOTE | 2018-10-26 14:55 | PN ---
DATE: 10/26/2018 LOCATION: 361, bed A SUBJECTIVE: This is a 58-year-old male, seen initially for GI consultation on 10/25/2018, reexamined again today in rounds with a recurrent episode of nausea and vomiting, intermittent period of abdominal pain, postprandial abdominal distention; however, it has to be mentioned that the patient is not able to keep anything down with reported recent episodes of weight loss secondary to above. No chest pain, palpitation, shortness of breath or evidence of active GI bleeding. The entire chart is reviewed including but not limited to the most recent lab and radiology study results, current and the previous medication list, current and the previous medical events. Today's lab showed normal CBC, but sodium is still low 127, CO2 content 31 indicative of respiratory alkalosis, and blood glucose level 412 PHYSICAL EXAMINATION: GENERAL: A 58-year-old male awake, alert, and oriented. VITAL SIGNS: Afebrile with pulse of 100, respiratory rate 20-22, and blood pressure of 142/76. HEENT: Showed dry, oral mucous membrane. Nonicteric sclerae. LUNGS: Few scattered crepitation. Decreased air entry at bases. HEART: Positive S1 and S2 with increased rate. ABDOMEN: Soft with mild distention and generalized tenderness. No mass or organomegaly. No rebound tenderness or guarding. EXTREMITIES: With mild lower extremity edematous changes. No clubbing or cyanosis. NEUROLOGICAL: No reported new neurological deficits, sensory or motor. IMPRESSION: 1. Poorly-controlled diabetes mellitus. 2. Diabetic gastroparesis. 3. Re-exacerbation of peptic ulcer disease with recently diagnosed gastric ulcer. 4. Hypertension and hyperlipidemia, by history. 5. Status post appendectomy, status post right second and third toe amputation due to chronic diabetic ulceration. 6. Hyponatremia, most likely secondary to hyperglycemia. SUGGESTIONS: 1. Agree with your plan. 2. Endocrinology consult. 3. Reglan 10 mg IV push every 6 hours. 4. If there is no response, then erythromycin 500 mg IV piggyback every 6 hours was started. 5. Correct underlying electrolyte imbalance. 6. Surgical consultation for potential pacemaker stimulator insertion, I will try to [facility] [place], [place] if possible. 7. Further recommendations to follow. Chad Palafox MD [facility] # [id number]
[2018-10-26] MEDS ORDERED: Dextrose 50% SYRINGE Inj (50 ml) IV PRN (19:59)
[2018-10-26] MEDS ORDERED: Dextrose 50% SYRINGE Inj (50 ml) IV STA (20:02)
[2018-10-26] MEDS ORDERED: Glucagon Recombinant 1 mg Inj IM PRN (20:03)
[2018-10-26] MEDS: Rosuvastatin Calcium 2.5 mg Tab PO SCH (21:47)
--- NOTE | 2018-10-26 21:49 | CP.PCM.CON ---
Past Patient History - Infectious Disease Hx of Infectious Diseases: None - Tetanus Immunizations Tetanus Immunization: Unknown - Past Medical History & Family History Past Medical History?: Yes - Past Social History Smoking Status: Former Smoker - CARDIAC Hx Hypercholesterolemia: Yes Hx Hypertension: Yes - PULMONARY Hx Respiratory Disorders: No - NEUROLOGICAL Hx Neurological Disorder: No - HEENT Hx HEENT Problems: No - RENAL Hx Chronic Kidney Disease: No - ENDOCRINE/METABOLIC Hx Endocrine Disorders: Yes Hx Diabetes Mellitus Type 2: Yes - HEMATOLOGICAL/ONCOLOGICAL Hx Blood Disorders: No - INTEGUMENTARY Hx Dermatological Problems: Yes Other/Comment: HX: GANGRENE RIGHT FOOT TOE(GREAT) surgery. 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) surgery - MUSCULOSKELETAL/RHEUMATOLOGICAL Hx Musculoskeletal Disorders: No Hx Falls: No - GASTROINTESTINAL Hx Gastritis: Yes - GENITOURINARY/GYNECOLOGICAL Hx Genitourinary Disorders: No - PSYCHIATRIC Hx Substance Use: No - SURGICAL HISTORY Hx Appendectomy: Yes (right 2nd and 3rd toes partially amputated ,and Big toe) - ANESTHESIA Hx Anesthesia: Yes Hx Anesthesia Reactions: No Hx Malignant Hyperthermia: No Meds Allergies/Adverse Reactions: Allergies Allergy/AdvReac Type Severity Reaction Status Date / Time No Known Allergies Allergy Verified 10/25/18 14:36 - Medications Medications: Current Medications Benzocaine/Menthol (Cepacol Sore Throat) 1 yuliya PO Q2 PRN PRN Reason: Sore Throat Last Admin: 10/26/18 13:56 Dose: 1 yuliya Chlorpromazine (Thorazine) 25 mg PO TID PRN PRN Reason: Hiccups Last Admin: 10/26/18 11:43 Dose: 25 mg Dextrose (Dextrose 50% Inj) 0 ml IV STAT PRN; Protocol PRN Reason: Hypoglycemia Protocol Dextrose (Glutose 15) 0 gm PO ONCE PRN; Protocol PRN Reason: Hypoglycemia Protocol Enoxaparin Sodium (Lovenox) 40 mg SC DAILY [facility] Last Admin: 10/26/18 10:47 Dose: Not Given Famotidine (Pepcid) 20 mg IVP DAILY [facility] Last Admin: 10/26/18 10:47 Dose: 20 mg Glucagon (Glucagen Diagnostic Kit) 0 mg IM STAT PRN; Protocol PRN Reason: Hypoglycemia Protocol Sodium Chloride (Sodium Chloride 0.9%) 1,000 mls @ 60 mls/hr IV .[id number] [facility] Last Admin: 10/26/18 13:59 Dose: Not Given Dextrose (Dextrose 5% In Water 1000 Ml) 1,000 mls @ 0 mls/hr IV .Q0M PRN; Protocol PRN Reason: Hypoglycemia Protocol Influenza Virus Vaccine (Flucelvax Quad [id number] Syr) 60 mcg IM .ONCE ONE Stop: 10/27/18 10:01 Insulin Aspart (Novolog) 0 unit SC ACHS [facility]; Protocol Last Admin: 10/26/18 17:36 Dose: Not Given Insulin Aspart (Novolog Mix 70/30 (70/30 Units/Ml)) 25 units SC BIDAC [facility] Last Admin: 10/26/18 17:36 Dose: 25 u Metformin HCl (Glucophage) 500 mg PO BID [facility] Last Admin: 10/26/18 17:36 Dose: 500 mg Metoclopramide HCl (Reglan) 10 mg IVP Q6H [facility] Last Admin: 10/26/18 17:36 Dose: 10 mg Morphine Sulfate (Morphine) 2 mg IVP Q4 PRN PRN Reason: Pain, severe (8-10) Last Admin: 10/26/18 17:42 Dose: 2 mg Ondansetron HCl (Zofran Inj) 4 mg IVP Q4 PRN PRN Reason: Nausea/Vomiting Last Admin: 10/26/18 19:38 Dose: 4 mg Pneumococcal Polyvalent Vaccine (Pneumovax 23 Vaccine) 0.5 ml IM .ONCE ONE Stop: 10/27/18 10:01 Rosuvastatin Calcium (Crestor) 2.5 mg PO HS [facility] Last Admin: 10/25/18 21:14 Dose: 2.5 mg Results - Vital Signs Recent Vital Signs: Last Vital Signs Temp 97.8 F 10/26/18 15:00 Pulse 97 H 10/26/18 15:00 Resp 20 10/26/18 15:00 BP 138/86 10/26/18 15:00 Pulse Ox 97 10/26/18 15:00 - Labs Result Diagrams: 10/26/18 07:32 10/26/18 07:32 Labs: Laboratory Results - last 24 hr 10/26/18 10/26/18 10/26/18 02:22 07:32 07:32 WBC 8.1 RBC 4.65 Hgb 13.2 Hct 37.9 MCV 81.6 MCH 28.4 MCHC 34.8 RDW 14.0 Plt Count 401 H MPV 7.7 Neut % (Auto) 82.0 H Lymph % (Auto) 10.6 L [place] % (Auto) 6.7 Eos % (Auto) 0.3 Baso % (Auto) 0.4 Neut # (Auto) 6.6 Lymph # (Auto) 0.9 L [place] # (Auto) 0.5 Eos # (Auto) 0.0 Baso # (Auto) 0.0 Sodium 127 L Potassium 4.1 Chloride 86 L D Carbon Dioxide 31 H Anion Gap 14 BUN 9 Creatinine 1.2 Est GFR ( Amer) > 60 Est GFR (Non-Af Amer) > 60 POC Glucose (mg/dL) 329 H Random Glucose 350 H Hemoglobin A1c Calcium 8.9 Urine Opiates Screen Urine Methadone Screen Ur Barbiturates Screen Ur Phencyclidine Scrn Ur Amphetamines Screen U Benzodiazepines Scrn U Oth Cocaine Metabols U Cannabinoids Screen 10/26/18 10/26/18 10/26/18 07:53 11:03 11:06 WBC RBC Hgb Hct MCV MCH MCHC RDW Plt Count MPV Neut % (Auto) Lymph % (Auto) [place] % (Auto) Eos % (Auto) Baso % (Auto) Neut # (Auto) Lymph # (Auto) [place] # (Auto) Eos # (Auto) Baso # (Auto) Sodium Potassium Chloride Carbon Dioxide Anion Gap BUN Creatinine Est GFR ( Amer) Est GFR (Non-Af Amer) POC Glucose (mg/dL) 412 H* 311 H Random Glucose Hemoglobin A1c Calcium Urine Opiates Screen Positive H Urine Methadone Screen Negative Ur Barbiturates Screen Negative Ur Phencyclidine Scrn Negative Ur Amphetamines Screen Negative U Benzodiazepines Scrn Negative U Oth Cocaine Metabols Negative U Cannabinoids Screen Negative 10/26/18 10/26/18 10/26/18 12:55 16:31 19:54 WBC RBC Hgb Hct MCV MCH MCHC RDW Plt Count MPV Neut % (Auto) Lymph % (Auto) [place] % (Auto) Eos % (Auto) Baso % (Auto) Neut # (Auto) Lymph # (Auto) [place] # (Auto) Eos # (Auto) Baso # (Auto) Sodium Potassium Chloride Carbon Dioxide Anion Gap BUN Creatinine Est GFR ( Amer) Est GFR (Non-Af Amer) POC Glucose (mg/dL) 80 48 L Random Glucose Hemoglobin A1c 9.3 H Calcium Urine Opiates Screen Urine Methadone Screen Ur Barbiturates Screen Ur Phencyclidine Scrn Ur Amphetamines Screen U Benzodiazepines Scrn U Oth Cocaine Metabols U Cannabinoids Screen 10/26/18 10/26/18 19:56 20:19 WBC RBC Hgb Hct MCV MCH MCHC RDW Plt Count MPV Neut % (Auto) Lymph % (Auto) [place] % (Auto) Eos % (Auto) Baso % (Auto) Neut # (Auto) Lymph # (Auto) [place] # (Auto) Eos # (Auto) Baso # (Auto) Sodium Potassium Chloride Carbon Dioxide Anion Gap BUN Creatinine Est GFR ( Amer) Est GFR (Non-Af Amer) POC Glucose (mg/dL) 35 L* 157 H Random Glucose Hemoglobin A1c Calcium Urine Opiates Screen Urine Methadone Screen Ur Barbiturates Screen Ur Phencyclidine Scrn Ur Amphetamines Screen U Benzodiazepines Scrn U Oth Cocaine Metabols U Cannabinoids Screen Assessment & Plan (1) Diabetes mellitus, insulin dependent (IDDM), uncontrolled Assessment and Plan: Endocrine consult reason for consult: uncontrolled diabetes Source: patient and chart review Nikolas Espinosa is 58 y/o admitted for nausea & vomiting / gasteritis as per pt.found with glucose > 300 as per pt. has DM for more than 20 years (+ ) neuropathy , (-) retinopathy , (-) nephropathy (-) CAD (+ ) PVD s/p right toe amputation , partial amputations of 2 other right toes , outpatient diabete regimen : novolog 75/25 25 units am & 25 units pm and metformin 1g po qd blood glucose log :200-400 , episode 48 & 35 symptomatic after treatment 157 denies h/o thyroid disorder Allergy NKDA Past medical history:HTN , hyperlipidemia Past surgical history: appendectomy , right toe amputation Psychiatry history: denies Social history: ex- smoking , occasional ETOH use , denies illicit drug use Family history: father with dm ROS: Constitutional: denies fever, tiredness/weakness. HEENT: denies earache, change in voice .Respiratory: denies cough, sob . CVS :no chest pain, no palpitations . Abdomen: no abdominal pain, (+) nausea (+) vomiting, no change bowel movement. LINE LEAD : denies light-headedness, dizziness. Extremities: no edema, no tremors. Skin: no itching, no rash Physical exam Well-developed AAO x3 , ,NAD VSS HEENT: norm cephalic, atraumatic, no lid lag , no exophthalmos NECK: supple, no palpable lymphadenopathy THYROID: no palpable thyromegaly, not tender CHEST: fair air entry, bilateral, CVS: S1,S2 ABDOMEN: bowel sound present, benign, obese, no wide purple striae , no bruises EXTREMITIES: no edema, clubbing or cyanosis, no palpable hand tremors , right foot with dressing Skin: acanthosis nigricans -lab: 10/2018 a1c 9.3 , cmp wnl , urine (+) opiate , wbc 10 08/2018 tsh 9.3 , a1c 9.3 Assessment: sevee hypoglycemia , symtomatic uncontrolled IDDM with neuropathy PVD s/p right toe amputation hypothyroidism gastritis plan : stop humalog 75/25 stop metformin start lantus 35 units sq qd @ hs start regular insulin low dose coverage tid & hs obtain TSH pt. was provided with a card with office information for f/u as an out patient Thank you for allowing me to participate in the care of the patient, we will follow with you. Stanley Ferrari # [phone] office Fridays & Saturdays address: [address] [place] [address] ,phone # [phone] ,FAX [phone] Status: Acute (2) Nausea & vomiting Status: Acute (3) Diabetes mellitus with neuropathy Status: Acute
--- NOTE | 2018-10-26 23:21 | PN ---
DATE: 10/26/2018 SUBJECTIVE: The patient is feeling a little bit better. Decreased nausea. Decreased cough. Decreased burping. No fever or chills. No vertigo. He feels more alert. He is on IV fluids and his sugars are down. Earlier, his sugar was up. PHYSICAL EXAMINATION: VITAL SIGNS: Blood pressure 138/86, pulse 97, respiratory rate 20, temperature 97.8. LUNGS: Clear. No rales. No rhonchi. CARDIOVASCULAR SYSTEM: S1 and S2, regular. ABDOMEN: Soft, nontender. ASSESSMENT: 1. Diabetic gastroparesis, he says ruled out gastritis, ruled out gastroesophageal reflux disease. 2. Severe dehydration with low sodium. His sodium could be low because of poorly controlled diabetes and volume losses versus water toxicity. 3. Hypertension. PLAN: Continue antiemetics, IV fluids. Bring sodium up to normal. Accu-Chek. Monitor the patient. Giovanni Vaughan MD
[2018-10-27] MEDS: Benzocaine/Menthol (Cepacol) Lozenge PO PRN ×7 (00:01→23:57)
--- NOTE | 2018-10-27 01:37 | CON ---
DATE: 10/26/2018 CHIEF COMPLAINT AND REASON FOR CONSULTATION: The patient was referred by Dr. Vaughan for evaluation for intractable hiccup and anxiety. The patient also has been drinking a lot of water. HISTORY OF PRESENT ILLNESS: This is a case of a 58-year-old male who is admitted here with abdominal pain, intractable vomiting as well as constant hiccup. The patient was referred for co-management. The patient continues to have intractable hiccups. He has been drinking a lot of water. Also, the patient on admission was noted to have severe hyponatremia. The patient's sodium level was 112. It has improved now to 127. The patient states he feels anxious and he is currently complaining of feeling thirsty. The patient noted to be drinking a lot of water, he said because of his thirst. He is also having hiccups. He has been taking at home Zofran, Reglan, and Thorazine. The patient was seen today. He still has some GI complaints, but the patient was noted to be eating very well. He states he is trying not to drink too much of water. He seems to be anxious and currently complaining of thirst. PAST PSYCHIATRIC HISTORY: Denies any. PAST MEDICAL HISTORY: History of diabetes, gastritis, history of hypertension, hypercholesterolemia. DRUG AND ALCOHOL HISTORY: Denies any. ALLERGIES: NO KNOWN ALLERGIES. PSYCHOSOCIAL HISTORY: The patient is unemployed at this time. CURRENT MEDICATIONS: Include Crestor, Glucophage, morphine, NovoLog, Reglan, Thorazine, and Zofran. REVIEW OF LABORATORY DATA: His blood sugar is still markedly elevated, ranging about 300. Creatinine is 1.2. His sodium now is 127, chloride is 86. Toxicology is positive for opiates. REVIEW OF SYSTEMS: He is alert, oriented x3, anxious, somatic, seen in his room eating. PHYSICAL EXAMINATION: VITAL SIGNS: Temperature is 98.2, pulse 104, blood pressure 138/78, respirations 20, oxygen saturation 97%. SKIN: No diaphoresis. HEENT: No headache. No dizziness. NECK: Supple. RESPIRATORY: No dyspnea. CARDIOVASCULAR: No chest pain. GASTROINTESTINAL: He was eating well but still has intractable hiccups and complains of abdominal pain. EXTREMITIES: Moving extremities. MUSCULOSKELETAL: Feels weak. NEUROLOGIC: Alert and oriented x3. GENITOURINARY: No urinary problems. MENTAL STATUS EXAMINATION: Tall male who is about 6 feet 5 inches, weighs 195 pounds. Alert and oriented x3. Mood is anxious and somatic. Affect is reactive. Though process coherent. Thought content , worried about his GI complaints. No psychosis. No suicidal or homicidal ideation. The patient is complaining of excessive thirst and has been drinking a lot of water. Attention and memory seem to be fair. Insight and judgement are limited. Impulse control is fair at this time. 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 PLAN AND RECOMMENDATION: The patient is seen. Meds reviewed. Continue present management. The patient is advised to limit intake of water. We will check his hemoglobin A1c as well as check his TSH. On review of his meds, the patient is on Reglan as well as Thorazine. These medicine are anticholinergic and can cause pt to drink a lot of water. Thank you very much for the consult. Hermelindo Vickers MD [facility]
--- NOTE | 2018-10-27 04:46 | CON ---
DATE: 10/26/2018 CHIEF COMPLAINT AND REASON FOR CONSULTATION: The patient was referred by Dr. Vaughan for evaluation for intractable hiccups as well as the patient is drinking a lot of water and also complaining of intractable vomiting. The patient is also very anxious. HISTORY OF PRESENT ILLNESS: This is a case of 58-year-old male who has been complaining of intractable vomiting as well as abdominal pain. The patient was complaining of intractable hiccups. The patient was referred for comanagement as the patient has been noted to be drinking excessive amount of water, complaining of abdominal pain and noted to be very somatic. On review of his home meds that the patient was taking at home, chlorpromazine 25 mg three times a day as well as Zofran as well as Reglan 10 mg p.o. t.i.d. p.r.n. at home. The patient states that he feels always thirsty and he is drinking. He is still complaining of abdominal pain and intractable hiccups and vomiting, but the patient when seen today has very good appetite. Review of his labs shows his blood sugars are poorly controlled. His sugars are markedly elevated. His last random sugar was above 300. His last sugar today was 311. The patient seems to be noncompliant with his diet. The patient is currently taking Reglan 10 mg IV every 6 hours. He is also taking chlorpromazine 25 mg t.i.d. and Zofran 4 mg IV every 4 hours p.r.n. PAST PSYCHIATRIC HISTORY: Denies any. DRUG AND ALCOHOL HISTORY: Denies any. ALLERGIES: NO KNOWN ALLERGIES. PSYCHOSOCIAL HISTORY: The patient is not working at this time. LIST OF CURRENT MEDICATIONS: Include Crestor, Glucophage, morphine, Pepcid, Reglan 10 mg IV every 6 hours p.r.n., Thorazine 25 mg t.i.d., and Zofran 4 mg IV. REVIEW OF LABORATORY DATA: His sodium was 112 on admission, now 127, but the patient continues to drink a lot of water. His blood sugar is still ranging above 300, creatinine is 1.2, his chloride is now 86, BUN is 9. The patient has been admitted several times before in the hospital for similar complaints. REVIEW OF SYSTEMS: The patient is alert, oriented x3, seen in his room eating. The patient has very good appetite. He was eating pasta, although he was complaining of intractable hiccups earlier and abdominal pain. PHYSICAL EXAMINATION: VITAL SIGNS: Temperature is 98.2, pulses 104, blood pressure 138/78, respirations 20, O2 saturations 97%. SKIN: No diaphoresis. HEENT: No headache or dizziness. NECK: Supple. RESPIRATORY: No dyspnea. CARDIOVASCULAR: No chest pain. GASTROINTESTINAL: Has very good appetite despite complaining of intractable hiccups and vomiting. EXTREMITIES: The patient is moving extremities. MUSCULOSKELETAL: Feels weak. NEUROLOGICAL: Alert and oriented x3. GENITOURINARY: No dysuria. MENTAL STATUS EXAMINATION: A tall male who looks stated age. Alert and oriented x3. Mood is anxious and somatic. Thought process is coherent. Thought content; no overt psychosis. No suicidal or homicidal ideation. Attention and memory seem to be fair. Insight and judgment limited. Impulse control is fair at this time. 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 PLAN AND RECOMMENDATIONS: The patient is seen. Meds are reviewed. Continue present management. We will hold off any addition of psych meds for now. The patient is advised to limit his intake of water as the patient seems to be constantly complaining of thirst. Of note, however, the patient is on Thorazine and Reglan, these two medicines again are very anticholinergic and can cause thirst side effect. The patient is advised to limit intake of water. We will also check his hemoglobin A1c. It seems that his diabetes is poorly controlled. The patient seems to be noncompliant with diet restriction. Hermelindo Vickers MD
[2018-10-27] MEDS: Sodium Chloride 0.9% 1,000 ML IV SCH ×3 (05:05→21:35)
--- NOTE | 2018-10-27 07:40 | PN ---
DATE: 10/26/2018 LOCATION: Room 361, bed A. SUBJECTIVE: This is a 58-year-old male, seen and examined early this morning with intermittent period again of nausea and vomiting with elevated blood glucose level due to subsequent drop of his blood glucose level. No reported active bleeding. No chest pain or palpitation. However, the patient appeared to be at some point restless due to his clinical status. The entire chart is reviewed including but not limited to the most recent lab and radiology study results, current and the previous medication list, current and the previous medical events. Case discussed with the staff at length as well as some surgical team in the hospital for potential referral to [place], [place] for possible gastric pacemaker stimulant insertion. Today's lab results, however, showed subsequent drop of blood glucose level, earlier reported to be 77 with reported elevated hemoglobin A1c to 9.3, and urine opiate screen was positive. PHYSICAL EXAMINATION: GENERAL: A 58-year-old male awake, alert and oriented. VITAL SIGNS: Afebrile with pulse of 84, respiratory 20-22, blood pressure 130/74. HEENT: Showed pale, dry oral mucous membrane. Nonicteric sclerae. LUNGS: Few scattered mild crepitation. Decreased air entry at bases. HEART: Positive S1 and S2. ABDOMEN: Soft with mild generalized tenderness. No mass or organomegaly. No rebound tenderness or guarding but midepigastric tenderness. EXTREMITIES: Without significant clubbing, cyanosis or edema. Evidence of a status post right toe with amputation seen. NEUROLOGIC: No reported neurological deficits, sensory or motor. IMPRESSION: 1. Re-exacerbation of peptic ulcer disease. 2. Poorly controlled diabetes mellitus with severe diabetic gastroparesis. 3. Known history of but not limited to hypothyroidism, peripheral vascular disease as well as hypertension. 4. Known history of hyperlipidemia. 5. Electrolyte imbalance with hyponatremia secondary to his excessive stage of hyperglycemia, most likely which can play a large role for the patient's nausea and vomiting. SUGGESTIONS: 1. Continue current management. 2. Follow up with endocrinology consultation. 3. May start the patient on erythromycin and/or increase the dose of Reglan IV in the meantime. 4. Surgical reevaluation. 5. Further recommendations to follow. Chad Palafox MD [facility] # [id number]
[2018-10-27] MEDS: (Novolin R) Insulin Human Regular 100 units/ml vial SC SCH ×4 (07:48→21:35)
[2018-10-27] MEDS: Enoxaparin 40 mg Syringe SC SCH (09:35)
[2018-10-27] MEDS: LIPASE/PROTEASE/AMYLASE 4,200 U ECC PO SCH ×3 (09:36→17:51)
[2018-10-27 09:52] LABS: BLOOD UREA NITROGEN 7 mg/dL (9-20); CALCIUM 8.5 mg/dl (8.6-10.4); GFR NON-AFRICAN AMERICAN > 60
[2018-10-27] MEDS ORDERED: Pneumococcal 23-Valent Vaccine IM ONE (10:00)
[2018-10-27] MEDS ORDERED: Influenza Vaccine 60 mcg/0.5 mL SYR (4YR UP) IM ONE (10:00)
--- NOTE | 2018-10-27 14:35 | PN ---
DATE: 10/27/2018 SUBJECTIVE: The patient is seen. The patient is having bout of hypoglycemia. The patient was seen by Endo. The patient had drop of sugar as low as 35 and his pH third generation is 2.8 and free T4 is 138. The patient was diagnosed by GI as having gastroparesis. The patient continues to drink a lot of water, complaining he is thirsty and ate a lot of food today. When seen, he was still complaining of nausea and vomiting. The patient advised not to drink a lot of water because the patient has gastroparesis. As stated, his hemoglobin A1c is 9.3, showing poor control. REVIEW OF SYSTEMS: The patient is alert and oriented x3, seen in his room. He has very good appetite, but still complains of intractable nausea and vomiting. PHYSICAL EXAMINATION: VITAL SIGNS: Temperature 98, pulse 69, blood pressure 123/78 , respirations 20, oxygen saturation 98%. SKIN: No diaphoresis. HEENT: No headache. No dizziness. NECK: Supple. RESPIRATORY: No dyspnea. CARDIOVASCULAR: No chest pain. GASTROINTESTINAL: Recurrent nausea and vomiting, but despite that, he has a good appetite. EXTREMITIES: Moving extremities, but complaining of numbness. MUSCULOSKELETAL: Feels weak. NEUROLOGIC: Alert and oriented x3. GENITOURINARY: No urinary problems. MENTAL STATUS EXAMINATION: A well-developed male, who looks stated age, alert and oriented x3. Mood is dysphoric. Affect is reactive. Speech is spontaneous. Thought process, coherent. Thought content, no overt psychosis. No suicidal or homicidal ideation. Attention and memory seem to be fair. Insight and judgment limited. Impulse control is fair at this time. 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 PLAN AND RECOMMENDATIONS: The patient is seen. Meds reviewed. Continue present management. The patient is followed by GI and Endo. Continue treatment plan as outlined. Hermelindo Vickers MD [facility]
--- NOTE | 2018-10-27 19:30 | CP.PCM.PN ---
Subjective - Date & Time of Evaluation Date of Evaluation: 10/27/18 Time of Evaluation: 19:34 - Subjective Subjective: uncontrolled iddm Objective - Vital Signs/Intake and Output Vital Signs (last 24 hours): Temp Pulse Resp BP Pulse Ox 97.5 F L 82 20 170/98 H 97 10/27/18 15:00 10/27/18 15:00 10/27/18 15:00 10/27/18 15:00 10/27/18 15:00 Intake and Output: 10/27/18 10/28/18 18:59 06:59 Intake Total 480 Output Total 400 Balance 80 - Medications Medications: Current Medications Benzocaine/Menthol (Cepacol Sore Throat) 1 yuliya PO Q2 PRN PRN Reason: Sore Throat Last Admin: 10/27/18 18:26 Dose: 1 yuliya Chlorpromazine (Thorazine) 25 mg PO TID PRN PRN Reason: Hiccups Last Admin: 10/26/18 11:43 Dose: 25 mg Dextrose (Dextrose 50% Inj) 0 ml IV STAT PRN; Protocol PRN Reason: Hypoglycemia Protocol Dextrose (Glutose 15) 0 gm PO ONCE PRN; Protocol PRN Reason: Hypoglycemia Protocol Enoxaparin Sodium (Lovenox) 40 mg SC DAILY [facility] Last Admin: 10/27/18 09:35 Dose: Not Given Famotidine (Pepcid) 20 mg IVP DAILY [facility] Last Admin: 10/27/18 09:35 Dose: 20 mg Glucagon (Glucagen Diagnostic Kit) 0 mg IM STAT PRN; Protocol PRN Reason: Hypoglycemia Protocol Sodium Chloride (Sodium Chloride 0.9%) 1,000 mls @ 60 mls/hr IV .[id number] [facility] Last Admin: 10/27/18 05:05 Dose: 60 mls/hr Dextrose (Dextrose 5% In Water 1000 Ml) 1,000 mls @ 0 mls/hr IV .Q0M PRN; Protocol PRN Reason: Hypoglycemia Protocol Insulin Glargine (Lantus) 20 unit SC HS [facility] Insulin Human Regular (Novolin R) 0 unit SC ACHS [facility]; Protocol Last Admin: 10/27/18 17:27 Dose: Not Given Metoclopramide HCl (Reglan) 10 mg IVP Q6H [facility] Last Admin: 10/27/18 17:51 Dose: 10 mg Morphine Sulfate (Morphine) 2 mg IVP Q4 PRN PRN Reason: Pain, severe (8-10) Last Admin: 10/27/18 17:52 Dose: 2 mg Ondansetron HCl (Zofran Inj) 4 mg IVP Q4 PRN PRN Reason: Nausea/Vomiting Last Admin: 10/27/18 18:20 Dose: 4 mg Rosuvastatin Calcium (Crestor) 2.5 mg PO HS KEVYN Last Admin: 10/26/18 21:47 Dose: 2.5 mg - Labs Labs: 10/26/18 07:32 10/27/18 06:44 Assessment and Plan (1) Diabetes mellitus, insulin dependent (IDDM), uncontrolled Assessment & Plan: Endocrine consult reason for consult: uncontrolled diabetes Source: patient and chart review Nikolas Espinosa is 58 y/o admitted for nausea & vomiting / gasteritis as per pt.found with glucose > 300 as per pt. has DM for more than 20 years (+ ) neuropathy , (-) retinopathy , (-) nephropathy (-) CAD (+ ) PVD s/p right toe amputation , partial amputations of 2 other right toes , outpatient diabete regimen : novolog 75/25 25 units am & 25 units pm and metformin 1g po qd blood glucose log :120-300 , episode 77 denies h/o thyroid disorder Allergy NKDA Past medical history:HTN , hyperlipidemia Past surgical history: appendectomy , right toe amputation Psychiatry history: denies Social history: ex- smoking , occasional ETOH use , denies illicit drug use Family history: father with dm ROS: Constitutional: denies fever, tiredness/weakness. HEENT: denies earache, change in voice .Respiratory: denies cough, sob . CVS :no chest pain, no palpitations . Abdomen: no abdominal pain, (+) nausea (+) vomiting, no change bowel movement. FACILITY PRACTICE SPECIALIST : denies light-headedness, dizziness. Extremities: no edema, no tremors. Skin: no itching, no rash Physical exam Well-developed AAO x3 , ,NAD VSS HEENT: norm cephalic, atraumatic, no lid lag , no exophthalmos NECK: supple, no palpable lymphadenopathy THYROID: no palpable thyromegaly, not tender CHEST: fair air entry, bilateral, CVS: S1,S2 ABDOMEN: bowel sound present, benign, obese, no wide purple striae , no bruises EXTREMITIES: no edema, clubbing or cyanosis, no palpable hand tremors , right foot with dressing Skin: acanthosis nigricans -lab: 10/2018 a1c 9.3 , cmp wnl , urine (+) opiate , wbc 10 , TSH 5.4 was 9 , FT 3 2.8 , FT4 1.8 08/2018 tsh 9.3 , a1c 9.3 Assessment: hypoglycemia , improving uncontrolled IDDM with neuropathy PVD s/p right toe amputation hypothyroidism gastritis plan : start lantus 10 units sq qd @ hs starting today , bed time snack continue regular insulin low dose coverage tid & hs monitor thyroid functions we will follow with you. Stanley Ferrari # [phone] office Fridays & Saturdays address: [address] [place] [address] ,phone # [phone] ,FAX [phone] Status: Acute (2) Nausea & vomiting Status: Acute (3) Diabetes mellitus with neuropathy Status: Acute
[2018-10-27] MEDS: Rosuvastatin Calcium 2.5 mg Tab PO SCH (21:12)
[2018-10-27] MEDS: (Lantus) Insulin Glargine, Recombinant SC SCH (21:34)
[2018-10-27] MEDS ORDERED: (Lantus) Insulin Glargine, Recombinant SC SCH ×2 (22:00)
--- NOTE | 2018-10-27 22:32 | CP.PCM.PN ---
Subjective - Date & Time of Evaluation Date of Evaluation: 10/27/18 Time of Evaluation: 08:20 - Subjective Subjective: dict Objective - Vital Signs/Intake and Output Vital Signs (last 24 hours): Temp Pulse Resp BP Pulse Ox 97.5 F L 82 20 170/98 H 97 10/27/18 15:00 10/27/18 15:00 10/27/18 15:00 10/27/18 15:00 10/27/18 15:00 Intake and Output: 10/27/18 10/28/18 18:59 06:59 Intake Total 480 Output Total 400 Balance 80 - Medications Medications: Current Medications Benzocaine/Menthol (Cepacol Sore Throat) 1 yuliya PO Q2 PRN PRN Reason: Sore Throat Last Admin: 10/27/18 21:12 Dose: 1 yuliya Chlorpromazine (Thorazine) 25 mg PO TID PRN PRN Reason: Hiccups Last Admin: 10/26/18 11:43 Dose: 25 mg Dextrose (Dextrose 50% Inj) 0 ml IV STAT PRN; Protocol PRN Reason: Hypoglycemia Protocol Dextrose (Glutose 15) 0 gm PO ONCE PRN; Protocol PRN Reason: Hypoglycemia Protocol Enoxaparin Sodium (Lovenox) 40 mg SC DAILY [facility] Last Admin: 10/27/18 09:35 Dose: Not Given Famotidine (Pepcid) 20 mg IVP DAILY [facility] Last Admin: 10/27/18 09:35 Dose: 20 mg Glucagon (Glucagen Diagnostic Kit) 0 mg IM STAT PRN; Protocol PRN Reason: Hypoglycemia Protocol Sodium Chloride (Sodium Chloride 0.9%) 1,000 mls @ 60 mls/hr IV .[id number] [facility] Last Admin: 10/27/18 21:35 Dose: Not Given Dextrose (Dextrose 5% In Water 1000 Ml) 1,000 mls @ 0 mls/hr IV .Q0M PRN; Protocol PRN Reason: Hypoglycemia Protocol Insulin Glargine (Lantus) 10 unit SC HS [facility] Last Admin: 10/27/18 21:34 Dose: 10 u Insulin Human Regular (Novolin R) 0 unit SC ACHS KEVYN; Protocol Last Admin: 10/27/18 21:35 Dose: Not Given Metoclopramide HCl (Reglan) 10 mg IVP Q6H [facility] Last Admin: 10/27/18 17:51 Dose: 10 mg Morphine Sulfate (Morphine) 2 mg IVP Q4 PRN PRN Reason: Pain, severe (8-10) Last Admin: 10/27/18 17:52 Dose: 2 mg Ondansetron HCl (Zofran Inj) 4 mg IVP Q4 PRN PRN Reason: Nausea/Vomiting Last Admin: 10/27/18 18:20 Dose: 4 mg Rosuvastatin Calcium (Crestor) 2.5 mg PO HS KEVYN Last Admin: 10/27/18 21:12 Dose: 2.5 mg - Labs Labs: 10/26/18 07:32 10/27/18 06:44
--- NOTE | 2018-10-28 01:34 | PN ---
DATE: 10/27/2018 SUBJECTIVE: The patient, Nikolas Dunaway, is still having persistent nausea, vomiting. It was personally observed by me and projectile, explosive, large quantity of white liquid, vomited by the patient while I was on the bedside of the patient. Also before that, there was vomitus in the bowel as well; however, the patient's sugars are much better. No fevers. He denies any abdominal pain. He denies any rectal bleeding. PHYSICAL EXAMINATION: VITAL SIGNS: Blood pressure 170/98, pulse 92, respiratory rate 20, temperature 97.5. LUNGS: Clear. CARDIOVASCULAR: S1, S2. Regular. ABDOMEN: Soft, exaggerated bowel sound. ASSESSMENT: 1. Dehydration. 2. Poorly controlled diabetes, rule out diabetic gastroparesis. 3. Abdominal pain, nausea, vomiting. It could be diabetic gastroparesis versus gastritis. PLAN: Symptomatic treatment, Accu-Chek, sliding scale. Endocrinology followup. Monitor the patient. Giovanni Vaughan MD
[2018-10-28] MEDS ORDERED: (Novolin R) Insulin Human Regular 100 units/ml vial SC STA (03:09)
[2018-10-28 07:40] LABS: BLOOD UREA NITROGEN 9 mg/dL (9-20); CALCIUM 8.5 mg/dl (8.6-10.4); GFR NON-AFRICAN AMERICAN > 60
[2018-10-28] MEDS: (Novolin R) Insulin Human Regular 100 units/ml vial SC SCH ×4 (08:04→21:53)
[2018-10-28] MEDS: LIPASE/PROTEASE/AMYLASE 4,200 U ECC PO SCH ×3 (09:49→17:24)
[2018-10-28] MEDS: Enoxaparin 40 mg Syringe SC SCH (09:50)
[2018-10-28] MEDS: Benzocaine/Menthol (Cepacol) Lozenge PO PRN ×3 (10:05→21:21)
[2018-10-28 10:10] LABS: ALB/GLOB RATIO 1.3 (1.0-2.1); ALBUMIN 3.6 g/dL (3.5-5.0); ALT/SGPT 20 U/L (21-72); AST/SGOT 35 U/L (17-59); BILIRUBIN,DIRECT 0.3 mg/dL (0.0-0.4)
--- NOTE | 2018-10-28 13:21 | PN ---
DATE: 10/28/2018 SUBJECTIVE: The patient is seen. The patient continues to have markedly elevated levels of blood sugar, but the patient noted to be drinking excessive amount of fluid. The patient was drinking a lot of itzel ralph. The patient is made aware he needs to limit drinking fluids, but he states that his sugars are elevated because he is not getting enough insulin. REVIEW OF SYSTEMS: Alert, oriented x3. Seen in his room. PHYSICAL EXAMINATION: VITAL SIGNS: Temperature is 98, pulse is 98, blood pressure 137/90, respirations 20, oxygen saturation is 99% on room air. SKIN: No diaphoresis. HEENT: No headache. No dizziness. NECK: Supple. RESPIRATORY: No dyspnea. CARDIOVASCULAR: No chest pain. GASTROINTESTINAL: Continues to have vomiting and nausea, but the patient is drinking a lot of water and fluids. The patient is noncompliant with his diet restriction. GENITOURINARY: The patient has been complaining of polyuria. EXTREMITIES: Moving extremities. MUSCULOSKELETAL: Feels weak. NEURO: Alert, oriented x3. MENTAL STATUS EXAMINATION: A tall male who looks stated age, alert and oriented x3. Mood is dysphoric. Affect is reactive. Speech is spontaneous. Thought process, coherent. Thought content, the patient states he needs more insulin. No psychosis. No suicidal or homicidal ideation. Attention and memory seem to be limited. Insight and judgment limited. Impulse control is fair at this time. IMPRESSION: History of mood disorder secondary to medical problems, uncontrolled diabetes, psychogenic polydipsia. PLAN AND RECOMMENDATIONS: The patient is seen. Meds reviewed. The patient followed by GI and Endo. The patient needs to follow his diet restriction and to limit drinking soda. Hermelindo Vickers MD
[2018-10-28] MEDS: Sodium Chloride 0.9% 1,000 ML IV SCH ×2 (13:50→14:36)
--- NOTE | 2018-10-28 15:56 | CP.PCM.CON ---
<Hima Christie - Last Filed: 10/28/18 17:43> History of Present Illness - History of Present Illness History of Present Illness: General Surgery Consult Note for Dr. Nunez Reason for consult: gastroparesis requiring gastric pacemaker 58 M with PMH of DM presented to [facility] for abd pain, nausea and vomiting. He was admitted on GI was consulted for diabetic gastroparesis. Patient states that these symptoms have been present for 6 months. Patient reports several admissions for similar symptoms. As per PMD, patient has poor compliance for DM. Patient admits to not being complaint with medication. he also states that he normally does not regularly check his blood glucose. Patient reports intermittent abd pain and currently it is controlled. He has been having nausea/vomiting. Patient's last BM was 2 days ago but reports flatus. Eating/drinking aggravates his symptoms while nothing specifically alleviates it. Denies fever/chills, sweats, chest pain, palpitations, SOB. Patient had two endoscopies previously. Apr [address] Padilla endoscopy which showed diffuse mild inflammation and a second in Jun [address] Bliss endoscopy that demonstrated LA grade D esophagitis, 2 cm hiatal hernia, diffuse moderate inflammation with edema and erythema, duodenal bulb and second part of duodenum normal. PMH: DM PSH: right first, second, and third toe amputations Meds: humulin 70/30, thorazine, carafate, pepcid, crestor Allergies: NKDA Social: former smoker daily for years, quit alcohol a few months ago - previously daily drinker, denies illicit drug use Review of Systems - Review of Systems All systems: reviewed and no additional remarkable complaints except (as per HPI) Past Patient History - Infectious Disease Hx of Infectious Diseases: None - Tetanus Immunizations Tetanus Immunization: Unknown - Past Medical History & Family History Past Medical History?: Yes - Past Social History Smoking Status: Unknown If Ever Smoked - CARDIAC Hx Hypercholesterolemia: Yes Hx Hypertension: Yes - PULMONARY Hx Respiratory Disorders: No - NEUROLOGICAL Hx Neurological Disorder: No - HEENT Hx HEENT Problems: No - RENAL Hx Chronic Kidney Disease: No - ENDOCRINE/METABOLIC Hx Endocrine Disorders: Yes Hx Diabetes Mellitus Type 2: Yes - HEMATOLOGICAL/ONCOLOGICAL Hx Blood Disorders: No - INTEGUMENTARY Hx Dermatological Problems: Yes Other/Comment: HX: GANGRENE RIGHT FOOT TOE(GREAT) surgery. 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) surgery - MUSCULOSKELETAL/RHEUMATOLOGICAL Hx Musculoskeletal Disorders: No Hx Falls: Yes - GASTROINTESTINAL Hx Gastritis: Yes - GENITOURINARY/GYNECOLOGICAL Hx Genitourinary Disorders: No - PSYCHIATRIC Hx Substance Use: No - SURGICAL HISTORY Hx Appendectomy: Yes (right 2nd and 3rd toes partially amputated ,and Big toe) - ANESTHESIA Hx Anesthesia: Yes Hx Anesthesia Reactions: No Hx Malignant Hyperthermia: No Meds Allergies/Adverse Reactions: Allergies Allergy/AdvReac Type Severity Reaction Status Date / Time No Known Allergies Allergy Verified 10/25/18 14:36 - Medications Medications: Current Medications Benzocaine/Menthol (Cepacol Sore Throat) 1 yuliya PO Q2 PRN PRN Reason: Sore Throat Last Admin: 10/28/18 10:05 Dose: 1 yuliya Chlorpromazine (Thorazine) 25 mg PO TID PRN PRN Reason: Hiccups Last Admin: 10/27/18 23:59 Dose: 25 mg Dextrose (Dextrose 50% Inj) 0 ml IV STAT PRN; Protocol PRN Reason: Hypoglycemia Protocol Dextrose (Glutose 15) 0 gm PO ONCE PRN; Protocol PRN Reason: Hypoglycemia Protocol Enoxaparin Sodium (Lovenox) 40 mg SC DAILY [facility] Last Admin: 10/28/18 09:50 Dose: Not Given Famotidine (Pepcid) 20 mg IVP DAILY [facility] Last Admin: 10/28/18 10:05 Dose: 20 mg Glucagon (Glucagen Diagnostic Kit) 0 mg IM STAT PRN; Protocol PRN Reason: Hypoglycemia Protocol Sodium Chloride (Sodium Chloride 0.9%) 1,000 mls @ 60 mls/hr IV .[id number] [facility] Last Admin: 10/28/18 14:36 Dose: Not Given Dextrose (Dextrose 5% In Water 1000 Ml) 1,000 mls @ 0 mls/hr IV .Q0M PRN; Protocol PRN Reason: Hypoglycemia Protocol Insulin Glargine (Lantus) 10 unit SC HS [facility] Last Admin: 10/27/18 21:34 Dose: 10 u Insulin Human Regular (Novolin R) 0 unit SC ACHS [facility]; Protocol Last Admin: 10/28/18 12:07 Dose: 3 u Metoclopramide HCl (Reglan) 10 mg IVP Q6H [facility] Last Admin: 10/28/18 11:02 Dose: 10 mg Morphine Sulfate (Morphine) 2 mg IVP Q4 PRN PRN Reason: Pain, severe (8-10) Last Admin: 10/28/18 12:50 Dose: 2 mg Ondansetron HCl (Zofran Inj) 4 mg IVP Q4 PRN PRN Reason: Nausea/Vomiting Last Admin: 10/28/18 12:51 Dose: 4 mg Pneumococcal Polyvalent Vaccine (Pneumovax 23 Vaccine) 0.5 ml IM .ONCE ONE Stop: 10/29/18 10:01 Rosuvastatin Calcium (Crestor) 2.5 mg PO HS [facility] Last Admin: 10/27/18 21:12 Dose: 2.5 mg Physical Exam - Constitutional Appears: No Acute Distress - Head Exam Head Exam: ATRAUMATIC, NORMOCEPHALIC - Eye Exam Eye Exam: EOMI, Normal appearance Pupil Exam: PERRL - ENT Exam ENT Exam: Mucous Membranes Moist - Respiratory Exam Respiratory Exam: NORMAL BREATHING PATTERN - Cardiovascular Exam Cardiovascular Exam: REGULAR RHYTHM - GI/Abdominal Exam GI & Abdominal Exam: Normal Bowel Sounds, Soft, Tenderness (mild epigastric). absent: Distended, Firm, Guarding, Rebound, Rigid - Extremities Exam Extremities exam: Positive for: normal capillary refill, pedal pulses present. Negative for: calf tenderness - Back Exam Back exam: absent: CVA tenderness (L), CVA tenderness (R) - Neurological Exam Neurological exam: Alert, Oriented x3 - Psychiatric Exam Psychiatric exam: Normal Affect, Normal Mood - Skin Skin Exam: Dry, Intact, Warm Results - Vital Signs Recent Vital Signs: Last Vital Signs Temp 98 F 10/28/18 00:00 Pulse 98 H 10/28/18 00:00 Resp 20 10/28/18 00:00 BP 137/90 10/28/18 00:00 Pulse Ox 99 10/28/18 00:00 - Labs Result Diagrams: 10/26/18 07:32 10/28/18 07:10 Labs: Laboratory Results - last 24 hr 10/27/18 10/27/18 10/28/18 16:43 21:23 02:48 Sodium Potassium Chloride Carbon Dioxide Anion Gap BUN Creatinine Est GFR ( Amer) Est GFR (Non-Af Amer) POC Glucose (mg/dL) 84 239 H 429 H* Random Glucose Calcium Total Bilirubin Direct Bilirubin AST ALT Alkaline Phosphatase Total Protein Albumin Globulin Albumin/Globulin Ratio 10/28/18 10/28/18 10/28/18 07:10 07:10 11:55 Sodium 126 L Potassium 3.9 Chloride 90 L Carbon Dioxide 31 H Anion Gap 9 L BUN 9 Creatinine 1.0 Est GFR ( Amer) > 60 Est GFR (Non-Af Amer) > 60 POC Glucose (mg/dL) 362 H 203 H Random Glucose 338 H D Calcium 8.5 L Total Bilirubin 0.9 Direct Bilirubin 0.3 AST 35 ALT 20 L D Alkaline Phosphatase 83 Total Protein 6.2 L Albumin 3.6 Globulin 2.7 Albumin/Globulin Ratio 1.3 Assessment & Plan - Assessment and Plan (Free Text) Assessment: 58 M with PMH of DM and gastroparesis requiring gastric pacemaker -Diet as tolerated -Pain control -Anti-emetics PRN -Possible OR if hospital can get correct gastric pacemaker -Medical management as per primary -Discussed with Dr. Fu PGY2 - Date & Time Date: 10/28/18 Time: 16:00 <Gerardo Vázquez - Last Filed: 10/31/18 17:27> Meds - Medications Medications: Current Medications Benzocaine/Menthol (Cepacol Sore Throat) 1 yuliya PO Q2 PRN PRN Reason: Sore Throat Last Admin: 10/31/18 17:18 Dose: 1 yuliya Chlorpromazine (Thorazine) 25 mg PO TID PRN PRN Reason: Hiccups Last Admin: 10/31/18 10:16 Dose: 25 mg Dextrose (Dextrose 50% Inj) 0 ml IV STAT PRN; Protocol PRN Reason: Hypoglycemia Protocol Dextrose (Glutose 15) 0 gm PO ONCE PRN; Protocol PRN Reason: Hypoglycemia Protocol Enoxaparin Sodium (Lovenox) 40 mg SC DAILY [facility] Last Admin: 10/31/18 10:20 Dose: Not Given Famotidine (Pepcid) 20 mg PO DAILY [facility] Last Admin: 10/31/18 10:15 Dose: 20 mg Glucagon (Glucagen Diagnostic Kit) 0 mg IM STAT PRN; Protocol PRN Reason: Hypoglycemia Protocol Insulin Glargine (Lantus) 20 unit SC [facility] Insulin Human Regular (Novolin R) 0 unit SC ACHS [facility]; Protocol Last Admin: 10/31/18 17:15 Dose: 6 units Metoclopramide HCl (Reglan) 10 mg IVP Q6H [facility] Last Admin: 10/31/18 17:16 Dose: 10 mg Morphine Sulfate (Morphine) 2 mg IVP Q4 PRN PRN Reason: Pain, severe (8-10) Last Admin: 10/31/18 17:25 Dose: 2 mg Ondansetron HCl (Zofran Inj) 4 mg IVP Q4 PRN PRN Reason: Nausea/Vomiting Last Admin: 10/31/18 00:30 Dose: 4 mg Rosuvastatin Calcium (Crestor) 2.5 mg PO HS [facility] Last Admin: 10/30/18 21:33 Dose: 2.5 mg Results - Vital Signs Recent Vital Signs: Last Vital Signs Temp 97.9 F 10/31/18 16:00 Pulse 93 H 10/31/18 16:00 Resp 20 10/31/18 16:00 BP 161/101 H 10/31/18 16:00 Pulse Ox 95 10/31/18 16:00 - Labs Result Diagrams: 10/31/18 07:04 10/31/18 07:04 Labs: Laboratory Results - last 24 hr 10/30/18 10/30/18 10/31/18 21:11 23:23 02:47 WBC RBC Hgb Hct MCV MCH MCHC RDW Plt Count MPV Sodium Potassium Chloride Carbon Dioxide Anion Gap BUN Creatinine Est GFR ( Amer) Est GFR (Non-Af Amer) POC Glucose (mg/dL) 291 H 373 H > 500 H* Random Glucose Calcium Phosphorus Magnesium Total Bilirubin AST ALT Alkaline Phosphatase Total Protein Albumin Globulin Albumin/Globulin Ratio 10/31/18 10/31/18 10/31/18 05:45 07:04 07:04 WBC 5.4 RBC 4.18 L Hgb 11.7 L Hct 33.8 L MCV 80.9 D MCH 28.0 MCHC 34.5 RDW 14.5 Plt Count 432 H MPV 7.0 L Sodium 125 L Potassium 3.9 Chloride 90 L Carbon Dioxide 28 Anion Gap 11 BUN 9 Creatinine 1.0 Est GFR ( Amer) > 60 Est GFR (Non-Af Amer) > 60 POC Glucose (mg/dL) 326 H Random Glucose 252 H Calcium 8.4 L Phosphorus 2.9 Magnesium 2.0 Total Bilirubin 0.8 AST 27 ALT 22 Alkaline Phosphatase 76 Total Protein 5.7 L Albumin 3.3 L Globulin 2.4 Albumin/Globulin Ratio 1.4 10/31/18 10/31/18 10/31/18 07:10 11:18 16:37 WBC RBC Hgb Hct MCV MCH MCHC RDW Plt Count MPV Sodium Potassium Chloride Carbon Dioxide Anion Gap BUN Creatinine Est GFR ( Amer) Est GFR (Non-Af Amer) POC Glucose (mg/dL) 276 H 269 H 258 H Random Glucose Calcium Phosphorus Magnesium Total Bilirubin AST ALT Alkaline Phosphatase Total Protein Albumin Globulin Albumin/Globulin Ratio Assessment & Plan - Assessment and Plan (Free Text) Assessment: All medical record entries made by the resident were at my direction. I have reviewed the chart and agree that the record accurately reflects my personal performance of the history, physical exam, and medical decision making.
--- NOTE | 2018-10-28 21:33 | CP.PCM.PN ---
Subjective - Date & Time of Evaluation Date of Evaluation: 10/28/18 Time of Evaluation: 07:40 - Subjective Subjective: dictated Objective - Vital Signs/Intake and Output Vital Signs (last 24 hours): Temp Pulse Resp BP Pulse Ox 98.6 F 82 20 152/91 H 99 10/28/18 16:02 10/28/18 16:02 10/28/18 16:02 10/28/18 16:02 10/28/18 16:02 Intake and Output: 10/28/18 10/29/18 18:59 06:59 Intake Total 980 Output Total 500 Balance 480 - Medications Medications: Current Medications Benzocaine/Menthol (Cepacol Sore Throat) 1 yuliya PO Q2 PRN PRN Reason: Sore Throat Last Admin: 10/28/18 21:21 Dose: 1 yuliya Chlorpromazine (Thorazine) 25 mg PO TID PRN PRN Reason: Hiccups Last Admin: 10/28/18 16:11 Dose: 25 mg Dextrose (Dextrose 50% Inj) 0 ml IV STAT PRN; Protocol PRN Reason: Hypoglycemia Protocol Dextrose (Glutose 15) 0 gm PO ONCE PRN; Protocol PRN Reason: Hypoglycemia Protocol Enoxaparin Sodium (Lovenox) 40 mg SC DAILY [facility] Last Admin: 10/28/18 09:50 Dose: Not Given Famotidine (Pepcid) 20 mg IVP DAILY [facility] Last Admin: 10/28/18 10:05 Dose: 20 mg Glucagon (Glucagen Diagnostic Kit) 0 mg IM STAT PRN; Protocol PRN Reason: Hypoglycemia Protocol Sodium Chloride (Sodium Chloride 0.9%) 1,000 mls @ 60 mls/hr IV .[id number] [facility] Last Admin: 10/28/18 14:36 Dose: Not Given Dextrose (Dextrose 5% In Water 1000 Ml) 1,000 mls @ 0 mls/hr IV .Q0M PRN; Protocol PRN Reason: Hypoglycemia Protocol Insulin Glargine (Lantus) 10 unit SC HS [facility] Last Admin: 10/27/18 21:34 Dose: 10 u Insulin Human Regular (Novolin R) 0 unit SC ACHS [facility]; Protocol Last Admin: 10/28/18 17:17 Dose: 2 u Metoclopramide HCl (Reglan) 10 mg IVP Q6H [facility] Last Admin: 10/28/18 17:16 Dose: 10 mg Morphine Sulfate (Morphine) 2 mg IVP Q4 PRN PRN Reason: Pain, severe (8-10) Last Admin: 10/28/18 16:55 Dose: 2 mg Ondansetron HCl (Zofran Inj) 4 mg IVP Q4 PRN PRN Reason: Nausea/Vomiting Last Admin: 10/28/18 20:29 Dose: 4 mg Pneumococcal Polyvalent Vaccine (Pneumovax 23 Vaccine) 0.5 ml IM .ONCE ONE Stop: 10/29/18 10:01 Rosuvastatin Calcium (Crestor) 2.5 mg PO HS [facility] Last Admin: 10/27/18 21:12 Dose: 2.5 mg - Labs Labs: 10/26/18 07:32 10/28/18 07:10
[2018-10-28] MEDS: Rosuvastatin Calcium 2.5 mg Tab PO SCH (21:53)
[2018-10-28] MEDS: (Lantus) Insulin Glargine, Recombinant SC SCH (21:54)
--- NOTE | 2018-10-29 00:17 | PN ---
DATE: 10/28/2018 LOCATION: 361, bed A. SUBJECTIVE: This is a 58-year-old male seen and examined in rounds without significant clinical changes with recurrent episodes of nausea and dyspepsia and vomiting on and off again. On records, it has to be mentioned that the patient had intermittent period of fluctuation of blood glucose level up and down during his admission. Most recent lab results today showed sodium of 126, CO2 content 31, blood glucose level 203, calcium 8.5 with total protein 6.2. The patient was seen by the surgical consult today for potential gastric pacemaker stimulant. PHYSICAL EXAMINATION: GENERAL: A 58-year-old male. VITAL SIGNS: Afebrile with pulse of 80, respiratory rate 20-22, blood pressure 148/84. HEENT: Showed pale, dry oral mucous membrane mildly, nonicteric sclerae. LUNGS: Few scattered crepitation. Decreased air entry at bases. HEART: Positive S1 and S2. ABDOMEN: Soft with mild generalized tenderness. No mass or organomegaly. No rebound tenderness or guarding. EXTREMITIES: Without significant clubbing, cyanosis or edema. No reported new neurological deficits, sensory or motor. IMPRESSION: 1. Poorly controlled diabetes mellitus. 2. Peptic ulcer disease with gastric ulcer. 3. Severe diabetic gastroparesis. 4. Known history of hyperlipidemia, hypertension as well as peripheral vascular disease. 5. Known history of hypothyroidism. 6. Electrolyte imbalance with hyponatremia with recurrent episode of nausea and vomiting. SUGGESTIONS: 1. Agree with your plan. 2. Awaiting potential surgical interference as mentioned above and as per the surgical consultation sheet. 3. Erythromycin IV. 4. Further recommendation to follow. Chad Palafox MD
--- NOTE | 2018-10-29 01:56 | PN ---
DATE: 10/28/2018 SUBJECTIVE: The patient is feeling better. His sugars have been relatively more tighter. He is poor compliant with diet. He is afebrile. He has nausea, occasional vomiting. PHYSICAL EXAMINATION: VITAL SIGNS: Blood pressure 152/91, pulse 82, respiratory rate 20, temperature 98.6. LUNGS: Clear. No rales. No rhonchi. CVS: S1, S2, regular. No thrill. ABDOMEN: Soft. ASSESSMENT: 1. Nausea, vomiting, and burping. Rule out diabetic gastroparesis. Could be gastritis. 2. Poorly controlled diabetes. 3. Dehydration, hyponatremia. PLAN: Continue IV fluids. Accu-Chek sliding scale. Monitor the patient. Gastrointestinal and endocrinology followup. Giovanni Vaughan MD
[2018-10-29] MEDS: Sodium Chloride 0.9% 1,000 ML IV SCH ×4 (05:52→21:31)
[2018-10-29 06:48] LABS: BASO % 0.9 % (0.0-2.0); EOS # 0.1 K/uL (0.0-0.7); EOS % 2.4 % (0.0-4.0); HEMOGLOBIN 12.3 g/dL (12.0-18.0); LYMPH # 1.3 K/uL (1.0-4.3); LYMPH % 26.7 % (20.0-40.0); MEAN CELL VOLUME 82.9 fL (80.0-94.0); MEAN CORPUSCULAR HEMOGLOBIN 28.4 pg (27.0-31.0); MEAN CORPUSCULAR HGB CONC 34.2 g/dL (33.0-37.0); MEAN PLATELET VOLUME 7.2 fL (7.2-11.7); MONO # 0.4 K/uL (0.0-0.8); MONO % 9.2 % (0.0-10.0); NEUT % 60.8 % (50.0-75.0); RBC 4.34 Mil/uL (4.40-5.90); RED CELL DISTRIBUTION WIDTH 14.4 % (11.5-14.5); WHITE BLOOD COUNT 4.9 K/uL (4.8-10.8)
[2018-10-29 06:57] LABS: BLOOD UREA NITROGEN 8 mg/dL (9-20); CALCIUM 8.4 mg/dl (8.6-10.4); GFR NON-AFRICAN AMERICAN > 60
[2018-10-29] MEDS: Benzocaine/Menthol (Cepacol) Lozenge PO PRN ×6 (07:40→20:00)
[2018-10-29] MEDS: (Novolin R) Insulin Human Regular 100 units/ml vial SC SCH ×4 (08:04→21:23)
[2018-10-29] MEDS ORDERED: Pneumococcal 23-Valent Vaccine IM ONE (10:00)
[2018-10-29] MEDS: LIPASE/PROTEASE/AMYLASE 4,200 U ECC PO SCH ×3 (10:03→17:24)
[2018-10-29] MEDS: Enoxaparin 40 mg Syringe SC SCH (10:05)
--- NOTE | 2018-10-29 11:27 | PN ---
DATE: 10/29/2018 LOCATION: 361, bed A. SUBJECTIVE: This is a 58-year-old male seen and examined in rounds early today without significant clinical changes, with intermittent periods of nausea, vomiting, and less hiccup episodes. The entire chart is reviewed including but not limited to the most recent lab and radiology study results. Today's CBC reported to be normal with thrombocytosis of 454, low sodium of 130, blood glucose level 272, calcium 8.24. The patient is seen by the surgical asst and official node is reviewed. PHYSICAL EXAMINATION: GENERAL: A 58-year-old male, appears to be awake, alert, oriented with intermittent periods of nausea and dyspepsia was less hiccup. VITAL SIGNS: Afebrile with pulse of 84, respiratory rate 20 to 22, blood pressure of 144/88. HEENT: Pale, dry, oral mucous membrane. Nonicteric sclerae. LUNGS: Few scattered crepitation. Decreased air entry at bases. HEART: Positive S1 and S2. ABDOMEN: Soft with mild generalized tenderness. No mass or organomegaly. EXTREMITIES: Without edema, clubbing, or cyanosis. NEUROLOGIC: No reported new neurological deficits, sensory or motor. IMPRESSION: 1. Poorly controlled diabetes mellitus. 2. Diabetic gastroparesis. 3. Peptic ulcer disease. 4. Known history of hypertension, hyperlipidemia, peripheral vascular disease. 5. Known history of hypothyroidism. 6. Electrolyte imbalance with hyponatremia, most likely secondary to above. SUGGESTIONS: 1. Agree with your plan. 2. Surgical reevaluation. 3. Case discussed with the on a regular basis. We will follow up closely with you. Chad Palafox MD
[2018-10-29] MEDS: Rosuvastatin Calcium 2.5 mg Tab PO SCH (21:18)
[2018-10-29] MEDS: (Lantus) Insulin Glargine, Recombinant SC SCH (21:19)
--- NOTE | 2018-10-29 21:44 | CP.PCM.PN ---
Subjective - Date & Time of Evaluation Date of Evaluation: 10/29/18 Time of Evaluation: 15:20 - Subjective Subjective: dictated Objective - Vital Signs/Intake and Output Vital Signs (last 24 hours): Temp Pulse Resp BP Pulse Ox 98.8 F 71 20 138/84 98 10/29/18 16:00 10/29/18 16:00 10/29/18 16:00 10/29/18 16:00 10/29/18 16:00 Intake and Output: 10/29/18 10/30/18 18:59 06:59 Intake Total 1230 Balance 1230 - Medications Medications: Current Medications Benzocaine/Menthol (Cepacol Sore Throat) 1 yuliya PO Q2 PRN PRN Reason: Sore Throat Last Admin: 10/29/18 20:00 Dose: 1 yuliya Chlorpromazine (Thorazine) 25 mg PO TID PRN PRN Reason: Hiccups Last Admin: 10/29/18 20:02 Dose: 25 mg Dextrose (Dextrose 50% Inj) 0 ml IV STAT PRN; Protocol PRN Reason: Hypoglycemia Protocol Dextrose (Glutose 15) 0 gm PO ONCE PRN; Protocol PRN Reason: Hypoglycemia Protocol Enoxaparin Sodium (Lovenox) 40 mg SC DAILY [facility] Last Admin: 10/29/18 10:05 Dose: Not Given Famotidine (Pepcid) 20 mg IVP DAILY [facility] Last Admin: 10/29/18 10:03 Dose: 20 mg Glucagon (Glucagen Diagnostic Kit) 0 mg IM STAT PRN; Protocol PRN Reason: Hypoglycemia Protocol Sodium Chloride (Sodium Chloride 0.9%) 1,000 mls @ 60 mls/hr IV .[id number] [facility] Last Admin: 10/29/18 21:31 Dose: 60 mls/hr Insulin Glargine (Lantus) 15 unit SC HS [facility] Last Admin: 10/29/18 21:19 Dose: 15 unit Insulin Human Regular (Novolin R) 0 unit SC ACHS [facility]; Protocol Last Admin: 10/29/18 21:23 Dose: Not Given Metoclopramide HCl (Reglan) 10 mg IVP Q6H [facility] Last Admin: 10/29/18 17:12 Dose: 10 mg Morphine Sulfate (Morphine) 2 mg IVP Q4 PRN PRN Reason: Pain, severe (8-10) Last Admin: 10/29/18 21:22 Dose: 2 mg Ondansetron HCl (Zofran Inj) 4 mg IVP Q4 PRN PRN Reason: Nausea/Vomiting Last Admin: 10/29/18 20:14 Dose: 4 mg Rosuvastatin Calcium (Crestor) 2.5 mg PO HS [facility] Last Admin: 10/29/18 21:18 Dose: 2.5 mg - Labs Labs: 10/29/18 06:28 10/29/18 06:28
--- NOTE | 2018-10-30 00:39 | PN ---
DATE: 10/29/2018 SUBJECTIVE: The patient is afebrile. He is persistently nauseous and he is vomiting. There is vomitus in bowel on the side, several episodes of vomiting today. PHYSICAL EXAMINATION: VITAL SIGNS: Blood pressure 146/87, pulse 77, respiratory rate 20, temperature 98. LUNGS: Clear. CARDIOVASCULAR SYSTEM: S1 and S2, regular. ABDOMEN: Soft, nontender. Bowel sounds are positive. ASSESSMENT: 1. Diabetic gastroparesis, rule out peptic ulcer disease. 2. Dehydration. 3. Hypertension. 4. Poorly controlled diabetes. PLAN: Reglan, Zofran, IV fluids. Tight blood sugar control. Monitor the patient. Giovanni Vaughan MD
[2018-10-30] MEDS: (Novolin R) Insulin Human Regular 100 units/ml vial SC SCH ×4 (07:59→21:28)
[2018-10-30] MEDS: LIPASE/PROTEASE/AMYLASE 4,200 U ECC PO SCH ×3 (09:27→17:29)
--- NOTE | 2018-10-30 10:24 | PN ---
DATE: 10/30/2018 LOCATION: 361, bed A. SUBJECTIVE: This is a 58-year-old male seen and examined early in rounds with recurrent episodes of vomiting again. Not responding well to Zofran and Reglan intake. The patient was reevaluated by the surgical team for potential gastric pacemaker stimulator. Most recent lab results showed blood glucose level is elevated to 353 again. Rest of the lab results still pending. PHYSICAL EXAMINATION: GENERAL: A 58-year-old male. VITAL SIGNS: Afebrile with pulse of 102, respiratory rate 20 to 22, blood pressure of 132/90. HEENT: Showed pale, dry oral mucous membrane. Nonicteric sclerae. LUNGS: Few scattered crepitation. Decreased air entry at bases. HEART: Positive S1 and S2. ABDOMEN: Soft with mild generalized tenderness. No mass or organomegaly. No rebound tenderness or guarding. EXTREMITIES: Without significant clubbing, cyanosis or edema. NEUROLOGIC: No reported new neurological deficits, sensory or motor. IMPRESSION: 1. Poorly controlled diabetes mellitus. 2. Gastric ulcer, peptic ulcer disease with diabetic gastroparesis, severe. 3. Known history of poorly controlled hypertension. 4. Known history of hyperlipidemia, peripheral vascular disease as well as hypothyroidism. 5. Electrolyte imbalance with hyponatremia secondary to his hyperglycemia most likely, inducing also episodes of nausea and vomiting. SUGGESTIONS: 1. Continue current management. 2. Endocrinology reevaluation. 3. The patient for surgical reevaluation as reported. 4. May need erythromycin IV if his condition and his symptoms persist, 500 mg IV piggyback every 6 hours. Chad Palafox MD
[2018-10-30] MEDS: Enoxaparin 40 mg Syringe SC SCH (11:25)
[2018-10-30] MEDS: Sodium Chloride 0.9% 1,000 ML IV SCH ×2 (14:21→22:07)
[2018-10-30] MEDS: Benzocaine/Menthol (Cepacol) Lozenge PO PRN ×2 (17:39→21:26)
[2018-10-30] MEDS: Rosuvastatin Calcium 2.5 mg Tab PO SCH (21:33)
[2018-10-30] MEDS: (Lantus) Insulin Glargine, Recombinant SC SCH (21:34)
--- NOTE | 2018-10-30 22:28 | CP.PCM.PN ---
Subjective - Date & Time of Evaluation Date of Evaluation: 10/30/18 Time of Evaluation: 12:20 - Subjective Subjective: dict Objective - Vital Signs/Intake and Output Vital Signs (last 24 hours): Temp Pulse Resp BP Pulse Ox 98.0 F 100 H 20 179/109 H 99 10/30/18 15:00 10/30/18 15:00 10/30/18 15:00 10/30/18 15:00 10/30/18 15:00 - Medications Medications: Current Medications Benzocaine/Menthol (Cepacol Sore Throat) 1 yuliya PO Q2 PRN PRN Reason: Sore Throat Last Admin: 10/30/18 21:26 Dose: 1 yuliya Chlorpromazine (Thorazine) 25 mg PO TID PRN PRN Reason: Hiccups Last Admin: 10/30/18 05:34 Dose: 25 mg Dextrose (Dextrose 50% Inj) 0 ml IV STAT PRN; Protocol PRN Reason: Hypoglycemia Protocol Dextrose (Glutose 15) 0 gm PO ONCE PRN; Protocol PRN Reason: Hypoglycemia Protocol Enoxaparin Sodium (Lovenox) 40 mg SC DAILY [facility] Last Admin: 10/30/18 11:25 Dose: Not Given Famotidine (Pepcid) 20 mg PO DAILY [facility] Glucagon (Glucagen Diagnostic Kit) 0 mg IM STAT PRN; Protocol PRN Reason: Hypoglycemia Protocol Sodium Chloride (Sodium Chloride 0.9%) 1,000 mls @ 60 mls/hr IV .[id number] [facility] Last Admin: 10/30/18 22:07 Dose: Not Given Insulin Glargine (Lantus) 15 unit SC HS [facility] Last Admin: 10/30/18 21:34 Dose: 15 unit Insulin Human Regular (Novolin R) 0 unit SC ACHS [facility]; Protocol Last Admin: 10/30/18 21:28 Dose: Not Given Metoclopramide HCl (Reglan) 10 mg IVP Q6H [facility] Last Admin: 10/30/18 17:30 Dose: 10 mg Morphine Sulfate (Morphine) 2 mg IVP Q4 PRN PRN Reason: Pain, severe (8-10) Last Admin: 10/30/18 18:30 Dose: 2 mg Ondansetron HCl (Zofran Inj) 4 mg IVP Q4 PRN PRN Reason: Nausea/Vomiting Last Admin: 10/30/18 18:21 Dose: 4 mg Rosuvastatin Calcium (Crestor) 2.5 mg PO HS [facility] Last Admin: 10/30/18 21:33 Dose: 2.5 mg - Labs Labs: 10/29/18 06:28 10/29/18 06:28
--- NOTE | 2018-10-31 02:03 | PN ---
DATE: 10/30/2018 SUBJECTIVE: Nikolas Dunaway is with better blood sugar control. He has still nausea and vomiting, but he is not compliant with his diet, medication, and blood sugars are better controlled. PHYSICAL EXAMINATION: VITAL SIGNS: Blood pressure 179/109, pulse 100, respiratory rate 20, temperature 98. LUNGS: Clear. No rales. No rhonchi. CARDIOVASCULAR SYSTEM: S1, S2, regular. ABDOMEN: Soft, nontender. Bowel sounds are positive. ASSESSMENT: 1. Diabetic gastroparesis. 2. Dehydration, hyponatremia. 3. Type 2 diabetes. 4. Hypertension. PLAN: Continue IV Jodie Cohen. Gastrointestinal evaluation. Giovanni Vaughan MD
[2018-10-31] MEDS ORDERED: (Novolin R) Insulin Human Regular 100 units/ml vial SC ONE (02:52)
[2018-10-31 07:09] LABS: HEMOGLOBIN 11.7 g/dL (12.0-18.0); MEAN CELL VOLUME 80.9 fL (80.0-94.0); MEAN CORPUSCULAR HGB CONC 34.5 g/dL (33.0-37.0); RBC 4.18 Mil/uL (4.40-5.90); RED CELL DISTRIBUTION WIDTH 14.5 % (11.5-14.5); WHITE BLOOD COUNT 5.4 K/uL (4.8-10.8)
[2018-10-31 07:51] LABS: ALB/GLOB RATIO 1.4 (1.0-2.1); ALBUMIN 3.3 g/dL (3.5-5.0); ALT/SGPT 22 U/L (21-72); AST/SGOT 27 U/L (17-59); BLOOD UREA NITROGEN 9 mg/dL (9-20); CALCIUM 8.4 mg/dl (8.6-10.4); GFR NON-AFRICAN AMERICAN > 60
[2018-10-31] MEDS: (Novolin R) Insulin Human Regular 100 units/ml vial SC SCH ×4 (08:07→21:44)
[2018-10-31] MEDS: Enoxaparin 40 mg Syringe SC SCH ×2 (10:15→10:20)
[2018-10-31] MEDS: LIPASE/PROTEASE/AMYLASE 4,200 U ECC PO SCH ×3 (10:15→17:17)
[2018-10-31] MEDS ORDERED: (Lantus) Insulin Glargine, Recombinant SC SCH (10:33)
--- NOTE | 2018-10-31 14:38 | PN ---
DATE: 10/31/2018 LOCATION: 361, bed A. SUBJECTIVE: This 58-year-old male seen and examined in rounds today, appeared to be awake, alert, oriented, somewhat restless with reported again increased blood glucose level over 500, but no reported chest pain, palpitation and no reported active GI bleeding, but periods of nausea with dyspepsia. The entire chart is reviewed including but not limited to the most recent lab and radiology study results, current and previous medication list, current and previous medical events. Case discussed with the staff at length. On records, this case discussed in more than one occasions with the staff in the floor as well as the surgical team. Today's lab showed hemoglobin 11.7, hematocrit 33.8 with normal white blood cells and normal platelet count, but thrombocytosis of 432 with the latest blood glucose level 276, albumin 3.3, total protein 5.7. PHYSICAL EXAMINATION: GENERAL: A 58-year-old male. VITAL SIGNS: Afebrile with pulse of 82, respiratory rate 20-22, blood pressure 136/80. HEENT: Showed pale, dry, mucous membrane. Nonicteric sclerae. LUNGS: Few scattered crepitation. Decreased air entry at bases. HEART: Positive S1 and S2. ABDOMEN: Soft with mild generalized tenderness. No mass or organomegaly. No rebound tenderness or guarding. EXTREMITIES: Without significant clubbing, cyanosis or edema. No reported new neurological deficits, sensory or motor. No reported new focal deficits. IMPRESSION: 1. Poorly controlled diabetes mellitus with diabetic gastroparesis. 2. Re-exacerbation of peptic ulcer disease. 3. Known history of gastric ulcer. 4. Known history of hyperlipidemia, peripheral vascular disease with hypothyroidism. SUGGESTIONS: 1. Continue current management. 2. Adjust oral intake. 3. Antireflux measures. 4. Surgical reevaluation for potential gastric stimulator pacemaker. 5. Further recommendation to follow. Chad Palafox MD
[2018-10-31] MEDS: Benzocaine/Menthol (Cepacol) Lozenge PO PRN (17:18)
--- NOTE | 2018-10-31 17:35 | PN ---
DATE: 10/31/2018 SUBJECTIVE: The patient seen in his room. Patient complaining about his poorly controlled sugar. His blood sugars are still very elevated, at one point greater than 500. The patient noted by staff to continue to drink excessive amounts of water as well as itzel ralph. He said that he drinks a lot because it soothes his stomach, but the patient continues to be vomiting. He is not compliant with his diet restrictions. REVIEW OF SYSTEMS: The patient is alert, oriented x3. Seen in his room, anxious. PHYSICAL EXAMINATION: VITAL SIGNS: Temperature 98.1, pulse 86, blood pressure 127/77, respirations 20, oxygen saturation is 97%. SKIN: No diaphoresis. HEENT: No headache. No dizziness. NECK: Supple. RESPIRATORY: No dyspnea. CARDIOVASCULAR: No chest pain. GASTROINTESTINAL: The patient continues to drink a lot of fluids, especially itzel ralph and also has got persistent nausea and vomiting. EXTREMITIES: Moving extremities. NEURO: Alert and oriented x3. GENITOURINARY: No urinary problems. MENTAL STATUS EXAMINATION: A tall male who looks stated age, alert and oriented x3. Speech is spontaneous. Mood is anxious and somatic. Affect is reactive. Thought process, coherent. Thought content, no overt psychosis. No suicidal or homicidal ideation. Attention and memory seem to be limited. Insight and judgment limited. Impulse control is fair at this time. LABORATORY DATA: His sodium is still low at 125, that is because the patient is drinking a lot of fluids. His creatinine is 1. His GFR is greater than 60. MEDICATIONS: Medication-wright, the patient continues to have episodes of nausea and vomiting, but currently taking Thorazine 25 mg t.i.d., Zofran 4 mg IV every 4 hours p.r.n. and also taking Reglan 10 mg IV every 6 hours. The patient has history of gastroparesis and also said that he may go for gastric pacemaker placement. IMPRESSION: History of mood disorder secondary to medical problems, uncontrolled diabetes and also persistent hyponatremia as well as consider psychogenic polydipsia. PLAN AND RECOMMENDATIONS: The patient is seen, meds reviewed. Continue present management. The patient advised to limit intake of itzel ralph as well as any other fluids as his sodium continues to be very low. Prognosis is guarded at this time as the patient tends to be noncompliant with treatment plan. Hermelindo Vickers MD [facility] # [id number]
--- NOTE | 2018-10-31 21:30 | CP.PCM.PN ---
Subjective - Date & Time of Evaluation Date of Evaluation: 10/31/18 Time of Evaluation: 21:26 - Subjective Subjective: uncontrolled IDDM Objective - Vital Signs/Intake and Output Vital Signs (last 24 hours): Temp Pulse Resp BP Pulse Ox 97.9 F 93 H 20 161/101 H 95 10/31/18 16:00 10/31/18 16:00 10/31/18 16:00 10/31/18 16:00 10/31/18 16:00 Intake and Output: 10/31/18 11/01/18 18:59 06:59 Intake Total 1770 Balance 1770 - Medications Medications: Current Medications Benzocaine/Menthol (Cepacol Sore Throat) 1 yuliya PO Q2 PRN PRN Reason: Sore Throat Last Admin: 10/31/18 17:18 Dose: 1 yuliya Chlorpromazine (Thorazine) 25 mg PO TID PRN PRN Reason: Hiccups Last Admin: 10/31/18 10:16 Dose: 25 mg Dextrose (Dextrose 50% Inj) 0 ml IV STAT PRN; Protocol PRN Reason: Hypoglycemia Protocol Dextrose (Glutose 15) 0 gm PO ONCE PRN; Protocol PRN Reason: Hypoglycemia Protocol Enoxaparin Sodium (Lovenox) 40 mg SC DAILY [facility] Last Admin: 10/31/18 10:20 Dose: Not Given Famotidine (Pepcid) 20 mg PO DAILY [facility] Last Admin: 10/31/18 10:15 Dose: 20 mg Glucagon (Glucagen Diagnostic Kit) 0 mg IM STAT PRN; Protocol PRN Reason: Hypoglycemia Protocol Insulin Glargine (Lantus) 20 unit SC HS [facility] Insulin Human Regular (Novolin R) 0 unit SC ACHS [facility]; Protocol Insulin Human Regular (Novolin R) 4 unit SC TIDPC [facility] Metoclopramide HCl (Reglan) 10 mg IVP Q6H [facility] Last Admin: 10/31/18 17:16 Dose: 10 mg Morphine Sulfate (Morphine) 2 mg IVP Q4 PRN PRN Reason: Pain, severe (8-10) Last Admin: 10/31/18 17:25 Dose: 2 mg Ondansetron HCl (Zofran Inj) 4 mg IVP Q4 PRN PRN Reason: Nausea/Vomiting Last Admin: 10/31/18 00:30 Dose: 4 mg Rosuvastatin Calcium (Crestor) 2.5 mg PO HS [facility] Last Admin: 10/30/18 21:33 Dose: 2.5 mg - Labs Labs: 10/31/18 07:04 10/31/18 07:04 Assessment and Plan (1) Diabetes mellitus, insulin dependent (IDDM), uncontrolled Assessment & Plan: 1) Diabetes mellitus, insulin dependent (IDDM), uncontrolled Assessment & Plan: Endocrine consult reason for consult: uncontrolled diabetes Source: patient and chart review Nikolas Espinosa is 58 y/o admitted for nausea & vomiting / gasteritis as per pt.found with glucose > 300 as per pt. has DM for more than 20 years (+ ) neuropathy , (-) retinopathy , (-) nephropathy (-) CAD (+ ) PVD s/p right toe amputation , partial amputations of 2 other right toes , outpatient diabete regimen : novolog 75/25 25 units am & 25 units pm and metformin 1g po qd blood glucose log :200-300 once > 500 no hypoglycemia , eating well however still with nausea & vomiting , plan for gastric pacemaker for gastroparesis denies h/o thyroid disorder Allergy NKDA Past medical history:HTN , hyperlipidemia Past surgical history: appendectomy , right toe amputation Psychiatry history: denies Social history: ex- smoking , occasional ETOH use , denies illicit drug use Family history: father with dm ROS: Constitutional: denies fever, tiredness/weakness. HEENT: denies earache, change in voice .Respiratory: denies cough, sob . CVS :no chest pain, no palpitations . Abdomen: no abdominal pain, (+) nausea (+) vomiting, no change bowel movement. 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 Extremities: no edema, no tremors. Skin: no itching, no rash Physical exam Well-developed AAO x3 , ,NAD VSS HEENT: norm cephalic, atraumatic, no lid lag , no exophthalmos NECK: supple, no palpable lymphadenopathy THYROID: no palpable thyromegaly, not tender CHEST: fair air entry, bilateral, CVS: S1,S2 ABDOMEN: bowel sound present, benign, obese, no wide purple striae , no bruises EXTREMITIES: no edema, clubbing or cyanosis, no palpable hand tremors , right foot with dressing Skin: acanthosis nigricans -lab: 10/2018 a1c 9.3 , cmp wnl , urine (+) opiate , wbc 10 , TSH 5.4 was 9 , FT 3 2.8 , FT4 1.8 08/2018 tsh 9.3 , a1c 9.3 Assessment: hypoglycemia , resolved uncontrolled IDDM with neuropathy /gastroparesis PVD s/p right toe amputation hypothyroidism gastritis plan : increase lantus 10 units sq bid q 12 h , first tonight change regular insulin low dose coverage tid & hs start regular 4 units sq tid with meals monitor thyroid functions we will follow with you. Stanley Ferrari # [phone] office Fridays & Saturdays address: [address] [place] [address] ,phone # [phone] ,FAX [phone] Status: Acute (2) Nausea & vomiting Status: Acute (3) Diabetes mellitus with neuropathy Status: Acute
[2018-10-31] MEDS: (Lantus) Insulin Glargine, Recombinant SC SCH (21:52)
[2018-10-31] MEDS: Rosuvastatin Calcium 2.5 mg Tab PO SCH (21:52)
--- NOTE | 2018-11-01 04:13 | CP.PCM.PN ---
Subjective - Date & Time of Evaluation Date of Evaluation: 10/31/18 Time of Evaluation: 07:20 - Subjective Subjective: dcit Objective - Vital Signs/Intake and Output Vital Signs (last 24 hours): Temp Pulse Resp BP Pulse Ox 98.3 F 76 20 133/83 96 11/01/18 00:00 11/01/18 00:00 11/01/18 00:00 11/01/18 00:00 11/01/18 00:00 Intake and Output: 10/31/18 11/01/18 18:59 06:59 Intake Total 1770 750 Balance 1770 750 - Medications Medications: Current Medications Benzocaine/Menthol (Cepacol Sore Throat) 1 yuliya PO Q2 PRN PRN Reason: Sore Throat Last Admin: 10/31/18 17:18 Dose: 1 yuliya Chlorpromazine (Thorazine) 25 mg PO TID PRN PRN Reason: Hiccups Last Admin: 10/31/18 10:16 Dose: 25 mg Dextrose (Dextrose 50% Inj) 0 ml IV STAT PRN; Protocol PRN Reason: Hypoglycemia Protocol Dextrose (Glutose 15) 0 gm PO ONCE PRN; Protocol PRN Reason: Hypoglycemia Protocol Enoxaparin Sodium (Lovenox) 40 mg SC DAILY [facility] Last Admin: 10/31/18 10:20 Dose: Not Given Famotidine (Pepcid) 20 mg PO DAILY [facility] Last Admin: 10/31/18 10:15 Dose: 20 mg Glucagon (Glucagen Diagnostic Kit) 0 mg IM STAT PRN; Protocol PRN Reason: Hypoglycemia Protocol Insulin Glargine (Lantus) 10 unit SC Q12 [facility]S [facility] Last Admin: 10/31/18 21:52 Dose: 10 unit Insulin Human Regular (Novolin R) 0 unit SC ACHS [facility] 234 BEDS AT [facility]; Protocol Last Admin: 10/31/18 21:44 Dose: Not Given Insulin Human Regular (Novolin R) 4 unit SC TIDPC [facility] 234 B[facility]S AT [facility] Metoclopramide HCl (Reglan) 10 mg IVP Q6H [facility] 234 BEDS AT [facility] Last Admin: 11/01/18 00:27 Dose: 10 mg Morphine Sulfate (Morphine) 2 mg IVP Q4 PRN PRN Reason: Pain, severe (8-10) Last Admin: 10/31/18 17:25 Dose: 2 mg Ondansetron HCl (Zofran Inj) 4 mg IVP Q4 PRN PRN Reason: Nausea/Vomiting Last Admin: 10/31/18 00:30 Dose: 4 mg Rosuvastatin Calcium (Crestor) 2.5 mg PO HS [facility] Last Admin: 10/31/18 21:52 Dose: 2.5 mg - Labs Labs: 10/31/18 07:04 10/31/18 07:04
[2018-11-01] MEDS: (Novolin R) Insulin Human Regular 100 units/ml vial SC SCH ×7 (07:57→21:56)
[2018-11-01] MEDS: Benzocaine/Menthol (Cepacol) Lozenge PO PRN ×3 (09:29→22:05)
[2018-11-01] MEDS: Enoxaparin 40 mg Syringe SC SCH (09:32)
[2018-11-01] MEDS: (Lantus) Insulin Glargine, Recombinant SC SCH ×2 (10:35→21:59)
[2018-11-01] MEDS: LIPASE/PROTEASE/AMYLASE 4,200 U ECC PO SCH ×3 (10:42→17:56)
--- NOTE | 2018-11-01 11:20 | PN ---
DATE: 11/01/2018 SUBJECTIVE: The patient's blood sugars are better. He still has nausea and episodes of vomiting. No fever. No chills. No dizziness. No vertigo. PHYSICAL EXAMINATION: VITAL SIGNS: Blood pressure 133/83, pulse 76, respiratory rate 20, temperature 98.3. LUNGS: Clear. ABDOMEN: Soft, nontender. Bowel sounds are positive. ASSESSMENT: 1. Diabetic gastroparesis, improving. 2. Poorly controlled diabetes. The patient's sugars are lot better. 3. Hypertension. 4. Dehydration. PLAN: Continue to monitor the patient. Continue monitoring. Close followup. Giovanni Vaughan MD
[2018-11-01 14:40] LABS: BLOOD UREA NITROGEN 11 mg/dL (9-20); CALCIUM 8.6 mg/dl (8.6-10.4); GFR NON-AFRICAN AMERICAN > 60
--- NOTE | 2018-11-01 15:07 | PN ---
DATE: 11/01/2018 SUBJECTIVE: The patient is seen. The patient's blood sugars are better controlled today at 139. The patient is getting regular insulin. He is still trying not to drink. He said he is feeling much better. The patient was advised not to drink regular itzel ralph. REVIEW OF SYSTEMS: The patient is sitting in his room, alert, and this time seems much calmer. PHYSICAL EXAMINATION: VITAL SIGNS: Temperature is 98.2, pulse 85, blood pressure 104/74, respirations 20, oxygen saturation 96%. SKIN: No diaphoresis. HEENT: No headache. No dizziness. NECK: Supple. RESPIRATORY: No dyspnea. CARDIOVASCULAR: No chest pain. GASTROINTESTINAL: Reports improvement of nausea and vomiting. EXTREMITIES: Moving extremities. MUSCULOSKELETAL: Feels weak. NEUROLOGIC: Alert and oriented x3. GENITOURINARY: No urinary problems. MENTAL STATUS EXAMINATION: Tall male who looks stated age. Alert and oriented x3, much calmer today. Affect is reactive. Speech is spontaneous. Thought process is coherent. Thought content, no overt psychosis. No suicidal or homicidal ideation. Attention and memory seem to be fair. Insight and judgment, fair. Impulse control is fair. IMPRESSION: Mood disorder secondary to medical problems as well as diabetes, improving. PLAN AND RECOMMENDATIONS: The patient is seen, meds reviewed. Continue present management. Continue treatment plan. The patient was advised to limit intake of excessive fluids. Hermelindo Vickers MD
[2018-11-01] MEDS ORDERED: Iohexol 240 (50 ml) PO ONE (17:30)
[2018-11-01] MEDS ORDERED: Iohexol 350mg/ml 100 ML ONE (19:44)
--- NOTE | 2018-11-01 20:26 | PN ---
DATE: 11/01/2018 LOCATION: Room 361, bed A. SUBJECTIVE: This is a 58-year-old male, seen and examined in rounds with intermittent period of nausea and dyspepsia with occasional vomiting again with elevated blood glucose level. The entire chart is reviewed including but not limited to the most recent lab and radiology study results. The patient denied any active GI bleeding, chest pain or palpitation. Today's lab showed sodium 130 with CO2 content of 32, blood glucose level of 491 with normal calcium but still has low hemoglobin and hematocrit with low total protein and albumin. PHYSICAL EXAMINATION: GENERAL: A 58-year-old male. VITAL SIGNS: Afebrile with pulse of 82, respiratory rate 20-22, blood pressure 114/76. HEENT: Showed pale, dry oral mucous membrane. Nonicteric sclerae. LUNGS: Few scattered crepitation. Decreased air entry at bases. HEART: S1 and S2. EXTREMITIES: Without edema, clubbing or cyanosis. NEUROLOGIC: No reported new neurological deficits, sensory or motor. IMPRESSION: 1. Poorly controlled diabetes mellitus. 2. Diabetic gastroparesis with gastric ulcer. 3. History of peripheral vascular disease, hyperlipidemia, hypothyroidism with borderline hypertension. SUGGESTIONS: 1. Continue current management. 2. Surgical reevaluation. 3. Further recommendation to follow. Chad Palafox MD
[2018-11-01] MEDS: Rosuvastatin Calcium 2.5 mg Tab PO SCH (21:58)
--- NOTE | 2018-11-01 22:40 | CP.PCM.PN ---
Subjective - Date & Time of Evaluation Date of Evaluation: 11/01/18 Time of Evaluation: 11:40 - Subjective Subjective: dictated Objective - Vital Signs/Intake and Output Vital Signs (last 24 hours): Temp Pulse Resp BP Pulse Ox 98.1 F 87 20 109/66 96 11/01/18 16:27 11/01/18 16:27 11/01/18 16:27 11/01/18 16:27 11/01/18 16:27 Intake and Output: 11/01/18 11/02/18 18:59 06:59 Intake Total 240 Balance 240 - Medications Medications: Current Medications Benzocaine/Menthol (Cepacol Sore Throat) 1 yuliya PO Q2 PRN PRN Reason: Sore Throat Last Admin: 11/01/18 22:05 Dose: 1 yluiya Chlorpromazine (Thorazine) 25 mg PO TID PRN PRN Reason: Hiccups Last Admin: 11/01/18 06:02 Dose: 25 mg Dextrose (Dextrose 50% Inj) 0 ml IV STAT PRN; Protocol PRN Reason: Hypoglycemia Protocol Dextrose (Glutose 15) 0 gm PO ONCE PRN; Protocol PRN Reason: Hypoglycemia Protocol Enoxaparin Sodium (Lovenox) 40 mg SC DAILY [facility] Last Admin: 11/01/18 09:32 Dose: Not Given Famotidine (Pepcid) 20 mg PO DAILY [facility] Last Admin: 11/01/18 09:28 Dose: 20 mg Glucagon (Glucagen Diagnostic Kit) 0 mg IM STAT PRN; Protocol PRN Reason: Hypoglycemia Protocol Insulin Glargine (Lantus) 10 unit SC Q12 [facility] Last Admin: 11/01/18 21:59 Dose: 10 unit Insulin Human Regular (Novolin R) 0 unit SC ACHS [facility]; Protocol Last Admin: 11/01/18 21:56 Dose: Not Given Insulin Human Regular (Novolin R) 4 unit SC TIDPC [facility] Last Admin: 11/01/18 17:57 Dose: 4 units Metoclopramide HCl (Reglan) 10 mg IVP Q6H [facility] Last Admin: 11/01/18 17:56 Dose: 10 mg Morphine Sulfate (Morphine) 2 mg IVP Q4 PRN PRN Reason: Pain, severe (8-10) Last Admin: 11/01/18 17:58 Dose: 2 mg Ondansetron HCl (Zofran Inj) 4 mg IVP Q4 PRN PRN Reason: Nausea/Vomiting Last Admin: 10/31/18 00:30 Dose: 4 mg Rosuvastatin Calcium (Crestor) 2.5 mg PO HS [facility] Last Admin: 11/01/18 21:58 Dose: 2.5 mg - Labs Labs: 10/31/18 07:04 11/01/18 13:40
--- NOTE | 2018-11-01 23:09 | CP.PCM.PN ---
Subjective - Date & Time of Evaluation Date of Evaluation: 11/01/18 Time of Evaluation: 10:00 - Subjective Subjective: uncontrolled IDDM Objective - Vital Signs/Intake and Output Vital Signs (last 24 hours): Temp Pulse Resp BP Pulse Ox 98.1 F 87 20 109/66 96 11/01/18 16:27 11/01/18 16:27 11/01/18 16:27 11/01/18 16:27 11/01/18 16:27 Intake and Output: 11/01/18 11/02/18 18:59 06:59 Intake Total 240 Balance 240 - Medications Medications: Current Medications Benzocaine/Menthol (Cepacol Sore Throat) 1 yulyia PO Q2 PRN PRN Reason: Sore Throat Last Admin: 11/01/18 22:05 Dose: 1 yuliya Chlorpromazine (Thorazine) 25 mg PO TID PRN PRN Reason: Hiccups Last Admin: 11/01/18 06:02 Dose: 25 mg Dextrose (Dextrose 50% Inj) 0 ml IV STAT PRN; Protocol PRN Reason: Hypoglycemia Protocol Dextrose (Glutose 15) 0 gm PO ONCE PRN; Protocol PRN Reason: Hypoglycemia Protocol Enoxaparin Sodium (Lovenox) 40 mg SC DAILY [facility] Last Admin: 11/01/18 09:32 Dose: Not Given Famotidine (Pepcid) 20 mg PO DAILY [facility] Last Admin: 11/01/18 09:28 Dose: 20 mg Glucagon (Glucagen Diagnostic Kit) 0 mg IM STAT PRN; Protocol PRN Reason: Hypoglycemia Protocol Insulin Glargine (Lantus) 10 unit SC Q12 [facility] Last Admin: 11/01/18 21:59 Dose: 10 unit Insulin Human Regular (Novolin R) 0 unit SC ACHS [facility]; Protocol Last Admin: 11/01/18 21:56 Dose: Not Given Insulin Human Regular (Novolin R) 4 unit SC TIDPC [facility] Last Admin: 11/01/18 17:57 Dose: 4 units Metoclopramide HCl (Reglan) 10 mg IVP Q6H [facility] Last Admin: 11/01/18 17:56 Dose: 10 mg Morphine Sulfate (Morphine) 2 mg IVP Q4 PRN PRN Reason: Pain, severe (8-10) Last Admin: 11/01/18 17:58 Dose: 2 mg Ondansetron HCl (Zofran Inj) 4 mg IVP Q4 PRN PRN Reason: Nausea/Vomiting Last Admin: 10/31/18 00:30 Dose: 4 mg Rosuvastatin Calcium (Crestor) 2.5 mg PO HS [facility] Last Admin: 11/01/18 21:58 Dose: 2.5 mg - Labs Labs: 10/31/18 07:04 11/01/18 13:40 Assessment and Plan (1) Diabetes mellitus, insulin dependent (IDDM), uncontrolled Assessment & Plan: Assessment & Plan: Endocrine consult reason for consult: uncontrolled diabetes Source: patient and chart review Nikolas Espinosa is 58 y/o admitted for nausea & vomiting / gasteritis as per pt.found with glucose > 300 as per pt. has DM for more than 20 years (+ ) neuropathy , (-) retinopathy , (-) nephropathy (-) CAD (+ ) PVD s/p right toe amputation , partial amputations of 2 other right toes contacted today for glucose >400 almost @ 11:30 am , recommendation pt to given the coverage besides prandial dose of 4 units with lunch , as per nurse in charge pt always drink juice & soda , nutritional evaluation was recommended blood glucose log :[id number] repeat 227 eating better , nausea & vomiting much better today denies h/o thyroid disorder Allergy NKDA Past medical history:HTN , hyperlipidemia Past surgical history: appendectomy , right toe amputation Psychiatry history: denies Social history: ex- smoking , occasional ETOH use , denies illicit drug use Family history: father with dm ROS: Constitutional: denies fever, tiredness/weakness. HEENT: denies earache, change in voice .Respiratory: denies cough, sob . CVS :no chest pain, no palpitations . Abdomen: no abdominal pain, (+) nausea (+) vomiting, no change bowel movement. [employer]LL[employer] B[employer]ER : denies light-headedness, dizziness. Extremities: no edema, no tremors. Skin: no itching, no rash Physical exam Well-developed AAO x3 , ,NAD VSS HEENT: norm cephalic, atraumatic, no lid lag , no exophthalmos NECK: supple, no palpable lymphadenopathy THYROID: no palpable thyromegaly, not tender CHEST: fair air entry, bilateral, CVS: S1,S2 ABDOMEN: bowel sound present, benign, obese, no wide purple striae , no bruises EXTREMITIES: no edema, clubbing or cyanosis, no palpable hand tremors , right foot with dressing Skin: acanthosis nigricans -lab: 10/2018 a1c 9.3 , cmp wnl , urine (+) opiate , wbc 10 , TSH 5.4 was 9 , FT 3 2.8 , FT4 1.8 08/2018 tsh 9.3 , a1c 9.3 Assessment: hypoglycemia , improving uncontrolled IDDM with neuropathy /gastroparesis PVD s/p right toe amputation hypothyroidism gastritis plan : continue lantus 10 units sq bid q 12 h continue regular insulin low dose coverage tid & hs continue regular 4 units sq tid with meals monitor thyroid functions we will follow with you. Stanley Ferrari # [phone] office Fridays & Saturdays address: [address] [place] [address] ,phone # [phone] ,FAX [phone] Status: Acute (2) Nausea & vomiting Status: Acute (3) Diabetes mellitus with neuropathy Status: Acute
[2018-11-02 00:58] VITALS: O2SAT 95
[2018-11-02] MEDS: Benzocaine/Menthol (Cepacol) Lozenge PO PRN ×2 (02:59→09:30)
[2018-11-02 07:50] VITALS: BP 132/82; PULSE 71; TEMP 97.9
[2018-11-02] MEDS: (Novolin R) Insulin Human Regular 100 units/ml vial SC SCH ×4 (08:09→12:35)
--- NOTE | 2018-11-02 09:00 | CT ---
Date of service: 11/01/2018 PROCEDURE: CT Abdomen and Pelvis with contrast HISTORY: inability to tolerate meals COMPARISON: 05/09/2018 TECHNIQUE: Contrast dose: Radiation dose: Total exam DLP = 587.91 mGy-cm. This CT exam was performed using one or more of the following dose reduction techniques: Automated exposure control, adjustment of the mA and/or kV according to patient size, and/or use of iterative reconstruction technique. FINDINGS: LOWER THORAX: Thickened esophagus distally; correlate clinically for esophagitis. Consider further evaluation with endoscopy. 3 millimeter nodule in the right lower lobe. LIVER: Unremarkable. No gross lesion or ductal dilatation. GALLBLADDER AND BILE DUCTS: Unremarkable. PANCREAS: Unremarkable. No gross lesion or ductal dilatation. SPLEEN: Unremarkable. ADRENALS: Unremarkable. No mass. KIDNEYS AND URETERS: Unremarkable. No hydronephrosis. No solid mass. VASCULATURE: Unremarkable. No aortic aneurysm. No aortic atherosclerotic calcification or mural plaque present. BOWEL: Unremarkable. No obstruction. No gross mural thickening. APPENDIX: Normal appendix. PERITONEUM: Unremarkable. No free fluid. No free air. LYMPH NODES: Unremarkable. No enlarged lymph nodes. BLADDER: Unremarkable. REPRODUCTIVE: Unremarkable. BONES: No acute fracture. OTHER FINDINGS: None. IMPRESSION: Thickened esophagus distally; correlate clinically for esophagitis. Malignancy not excluded. Consider further evaluation with endoscopy.
[2018-11-02] MEDS: (Lantus) Insulin Glargine, Recombinant SC SCH (09:30)
[2018-11-02] MEDS: LIPASE/PROTEASE/AMYLASE 4,200 U ECC PO SCH (09:31)
[2018-11-02] MEDS: Enoxaparin 40 mg Syringe SC SCH (09:37)
--- NOTE | 2018-11-02 18:09 | PN ---
DATE: 11/02/2018 SUBJECTIVE: The patient is seen. The patient's blood sugar seems to be still unstable. The patient's sugar went as high as 491 and dipped down to 87. The patient states that he has been diabetic for almost 20 years, but the patient's blood sugars are poorly controlled, although the patient claims that he is not taking enough insulin. The patient's sugar continues to be low and the patient does drink excessive amount of fluids, especially itzel ralph. REVIEW OF SYSTEMS: He is alert and oriented x3. He is sitting in his room. PHYSICAL EXAMINATION: VITAL SIGNS: Temperature 97.9, pulse 71, blood pressure 132/82, respirations 20, oxygen saturation is 95%. SKIN: No diaphoresis. HEENT: No headache. No dizziness. NECK: Supple. RESPIRATORY: No dyspnea. CARDIOVASCULAR: No chest pain. GASTROINTESTINAL: The patient is a drinking lot of water and complaining of being nauseous. EXTREMITIES: Moving extremities. MUSCULOSKELETAL: Weakness is improving. NEUROLOGIC: Alert and oriented x3. GENITOURINARY: Complaining of dysuria. The patient has polyuria. MENTAL STATUS EXAMINATION: Tall male, who looks stated age, alert, oriented x3. Mood is dysphoric, anxious. Affect is reactive. Speech is spontaneous. Thought process, coherent. Thought content, no overt psychosis. No suicidal or homicidal ideation. Attention and memory seem to be fair. Insight and judgment, limited. Impulse control is fair at this time. IMPRESSION: History of mood disorder secondary to medical problems as well as uncontrolled diabetes, as well as persistent hyponatremia and possible psychogenic polydipsia. PLAN AND RECOMMENDATIONS: The patient is seen, meds reviewed. Continue present management. The patient advised not to drink too much fluid. The patient's continuous treatment plan is to control his blood sugars. The patient is currently taking insulin. The patient is complaining of persistent nausea and vomiting, but taking Reglan, Thorazine, and Zofran. The patient is on Reglan and Thorazine with anticholinergic and can cause dryness of the mouth, which can exacerbate his excessive intake of fluid. Hermelindo Vickers MD
--- NOTE | 2018-11-02 18:23 | CP.PCM.PN ---
Subjective - Date & Time of Evaluation Date of Evaluation: 11/09/18 Time of Evaluation: 11:00 - Subjective Subjective: alert and orientedx3, no active vomiting or distress. Objective - Vital Signs/Intake and Output Vital Signs (last 24 hours): Temp Pulse Resp BP Pulse Ox 97.9 F 71 20 132/82 95 11/02/18 07:00 11/02/18 07:00 11/02/18 07:00 11/02/18 07:00 11/02/18 07:00 Intake and Output: 11/02/18 11/02/18 06:59 18:59 Intake Total 1700 Balance 1700 - Labs Labs: 10/31/18 07:04 11/01/18 13:40 Assessment and Plan - Assessment and Plan (Free Text) Assessment: 58 year old male admitted with hyponatremia and vomiting, seen and examined. Alert and orientedx3, ambulating well. Discussed with DR Vaughan and DR Ventura, plan to discharge home and advised the patient to follow up in the office of GI. Continue with present medications.
--- NOTE | 2018-11-02 23:42 | PN ---
DATE: 11/02/2018 LOCATION: 361, bed A. SUBJECTIVE: This is a 58-year-old male, seen very early in rounds today without significant clinical changes, but intermittent period of mild nausea with dyspepsia. It has to be mentioned that this case discussed with the surgical orderly today over a period of 15 to 20 minutes as well as the patient and family for a period of half an hour regarding his concerned condition. The entire chart is reviewed including but not limited to the most recent lab and radiology study results, and today's latest blood glucose level was 434. Rest of the lab results still pending. PHYSICAL EXAMINATION: GENERAL: A 58-year-old male awake, alert, oriented. Complaining of mild abdominal pain. VITAL SIGNS: Afebrile with pulse of 70, respiratory 20 to 22, blood pressure 128/80. HEENT: Showed pale, dry oral mucous membrane, nonicteric sclerae. LUNGS: Few scattered crepitation. Decreased air entry at bases. HEART: Positive S1 and S2. ABDOMEN: Soft with slight generalized tenderness. No mass or organomegaly. No rebound tenderness or guarding. EXTREMITIES: Without significant clubbing, cyanosis or edema. NEUROLOGIC: No reported new neurological deficits, sensory or motor. IMPRESSION: 1. Poorly controlled diabetes mellitus. 2. Diabetic gastroparesis. 3. Peptic ulcer disease. SUGGESTIONS: 1. Continue current management. 2. The patient is to be followed up as outpatient, as directed by the primary MD. 3. Further recommendation to follow. Chad Palafox MD
--- NOTE | 2018-11-03 00:28 | CP.PCM.DIS ---
Provider - Provider Date of Admission: 10/27/18 12:40 Attending physician: Giovanni Vaughan MD Consults: 10/25/18 19:49 Gastroenterology Consult Routine Comment: Consulting Provider: Chad Bliss Consulting Physician: Chad Bliss Reason for Consult: Intractable vomiting/belching 10/26/18 08:08 Psychiatry Consult Routine Comment: Consulting Provider: Hermelindo Guevara Consulting Physician: Hermelindo Guevara Reason for Consult: uncontrolled hiccup 10/26/18 16:53 Endocrinology Consult Routine Comment: Consulting Provider: Stanley Han Consulting Physician: Stanley Han Reason for Consult: IDDM 10/28/18 13:12 General Surgery Consult Routine Comment: Consulting Provider: Gerardo Vázquez Consulting Physician: Gerardo Vázquez Reason for Consult: gastroparesis; gastric pacemaker Time Spent in preparation of Discharge (in minutes): 30 Hospital Course - Lab Results Lab Results: Most Recent Lab Values WBC 5.4 K/uL (4.8-10.8) 10/31/18 07:04 RBC 4.18 Mil/uL (4.40-5.90) L 10/31/18 07:04 Hgb 11.7 g/dL (12.0-18.0) L 10/31/18 07:04 Hct 33.8 % (35.0-51.0) L 10/31/18 07:04 MCV 80.9 fL (80.0-94.0) D 10/31/18 07:04 MCH 28.0 pg (27.0-31.0) 10/31/18 07:04 MCHC 34.5 g/dL (33.0-37.0) 10/31/18 07:04 RDW 14.5 % (11.5-14.5) 10/31/18 07:04 Plt Count 432 K/uL (130-400) H 10/31/18 07:04 MPV 7.0 fL (7.2-11.7) L 10/31/18 07:04 Neut % (Auto) 60.8 % (50.0-75.0) 10/29/18 06:28 Lymph % (Auto) 26.7 % (20.0-40.0) 10/29/18 06:28 [place] % (Auto) 9.2 % (0.0-10.0) 10/29/18 06:28 Eos % (Auto) 2.4 % (0.0-4.0) 10/29/18 06:28 Baso % (Auto) 0.9 % (0.0-2.0) 10/29/18 06:28 Neut # (Auto) 3.0 K/uL (1.8-7.0) 10/29/18 06:28 Lymph # (Auto) 1.3 K/uL (1.0-4.3) 10/29/18 06:28 [place] # (Auto) 0.4 K/uL (0.0-0.8) 10/29/18 06: Eos # (Auto) 0.1 K/uL (0.0-0.7) 10/29/18 06: Baso # (Auto) 0.0 K/uL (0.0-0.2) 10/29/18 06:28 Neutrophils % (Manual) 89 % (50-75) H 10/25/18 15:24 Lymphocytes % (Manual) 8 % (20-40) L 10/25/18 15:24 Monocytes % (Manual) 3 % (0-10) 10/25/18 15:24 Platelet Estimate Normal (NORMAL) 10/25/18 15:24 Sodium 130 mmol/L (132-148) L 11/01/18 13:40 Potassium 4.6 mmol/L (3.6-5.2) 11/01/18 13:40 Chloride 93 mmol/L (98-107) L 11/01/18 13:40 Carbon Dioxide 32 mmol/L (22-30) H 11/01/18 13:40 Anion Gap 10 (10-20) 11/01/18 13:40 BUN 11 mg/dL (9-20) 11/01/18 13:40 Creatinine 1.2 mg/dL (0.8-1.5) 11/01/18 13:40 Est GFR ( Amer) > 60 11/01/18 13:40 Est GFR (Non-Af Amer) > 60 11/01/18 13:40 POC Glucose (mg/dL) 434 mg/dL (65-110) H* 11/02/18 11:09 Random Glucose 390 mg/dL (75-110) H D 11/01/18 13:40 Hemoglobin A1c 9.3 % (4.2-6.5) H 10/26/18 12:55 Calcium 8.6 mg/dl (8.6-10.4) 11/01/18 13:40 Phosphorus 2.9 mg/dL (2.5-4.5) 10/31/18 07:04 Magnesium 2.0 mg/dL (1.6-2.3) 10/31/18 07:04 Total Bilirubin 0.8 mg/dL (0.2-1.3) 10/31/18 07:04 Direct Bilirubin 0.3 mg/dL (0.0-0.4) 10/28/18 07:10 AST 27 U/L (17-59) 10/31/18 07:04 ALT 22 U/L (21-72) 10/31/18 07:04 Alkaline Phosphatase 76 U/L (38-126) 10/31/18 07:04 Total Protein 5.7 g/dL (6.3-8.3) L 10/31/18 07:04 Albumin 3.3 g/dL (3.5-5.0) L 10/31/18 07:04 Globulin 2.4 gm/dL (2.2-3.9) 10/31/18 07:04 Albumin/Globulin Ratio 1.4 (1.0-2.1) 10/31/18 07:04 Free T4 1.38 ng/dL (0.78-2.19) 10/27/18 06:44 Free T3 pg/mL 2.88 pg/mL (2.77-5.27) 10/27/18 06:44 TSH 3rd Generation 5.74 mIU/L (0.46-4.68) H 10/27/18 06:44 Urine Opiates Screen Positive (NEGATIVE) H 10/26/18 11:03 Urine Methadone Screen Negative (NEGATIVE) 10/26/18 11:03 Ur Barbiturates Screen Negative (NEGATIVE) 10/26/18 11:03 Ur Phencyclidine Scrn Negative (NEGATIVE) 10/26/18 11:03 Ur Amphetamines Screen Negative (NEGATIVE) 10/26/18 11:03 U Benzodiazepines Scrn Negative (NEGATIVE) 10/26/18 11:03 U Oth Cocaine Metabols Negative (NEGATIVE) 10/26/18 11:03 U Cannabinoids Screen Negative (NEGATIVE) 10/26/18 11:03 Discharge Exam - Head Exam Head Exam: ATRAUMATIC, NORMOCEPHALIC Discharge Plan - Discharge Medications Prescriptions: Insulin Glargine, Recombina [Lantus] 10 unit SC Q12 #1 unit - Follow Up Plan Condition: GOOD Disposition: HOME/ ROUTINE Instructions: Diabetes Type 2 (DC), Gastroparesis (Delayed Gastric Emptying) (DC), Insulin Glargine Additional Instructions: follow up with PMD in 1 week follow up with DR Gauthier office in 1-2 weeks continue with present meds
--- NOTE | 2018-11-03 22:29 | DS ---
DISCHARGE DIAGNOSES: 1. Rule out diabetic gastroparesis. 2. Dehydration. 3. Psychogenic polydipsia. 4. Poorly controlled diabetes. 5. Hypertension. HOSPITAL COURSE: This is a 58-year-old male with history of type 2 diabetes on insulin, hypertension, hyperlipidemia. He has chronic persistent nausea, vomiting, and burping. Mostly burping persistent earlier, persistent vomiting on and off. The patient drinks large quantity of water, and his sodium is mostly low. He was admitted with low sodium, weakness, dizziness, headache; and he also had nausea, vomiting, and burping. He was treated with Reglan, Zofran, Thorazine, Accu-Check sliding scale, tight blood sugar control. Endocrinology and GI consult was done, and the patient was treated medically. Medications were adjusted. He was feeling better. He was being discharged with outpatient followup. CONDITION UPON DISCHARGE: Stable. DISCHARGE DIAGNOSIS: As above. Giovanni Vaughan MD
== END 2018-11-02 12:57 | disposition home or self-care (01) | DRG 74 ==
LOC: C.ER 14:22 → C.9E 16:06 → C.3T 17:55 → OBSVTOIN 10-27 12:40
PROVIDERS: ADMIT Internal Medicine; ATTEND Internal Medicine
DX: E11.43 Type 2 diabetes mellitus with diabetic autonomic (poly)neuropathy (principal); K31.84 Gastroparesis; E11.65 Type 2 diabetes mellitus with hyperglycemia; E87.1 Hypo-osmolality and hyponatremia; E87.3 Alkalosis; E86.0 Dehydration; F39 Unspecified mood [affective] disorder; K25.9 Gastric ulcer, unspecified as acute or chronic, without hemorrhage or perforation; K29.70 Gastritis, unspecified, without bleeding; F06.31 Mood disorder due to known physiological condition with depressive features; I10 Essential (primary) hypertension; E03.9 Hypothyroidism, unspecified; E11.51 Type 2 diabetes mellitus with diabetic peripheral angiopathy without gangrene; E11.649 Type 2 diabetes mellitus with hypoglycemia without coma; K20.9 Esophagitis, unspecified; K44.9 Diaphragmatic hernia without obstruction or gangrene; E78.5 Hyperlipidemia, unspecified; E78.00 Pure hypercholesterolemia, unspecified; F17.200 Nicotine dependence, unspecified, uncomplicated; F41.9 Anxiety disorder, unspecified; F50.9 Eating disorder, unspecified; Z68.23 Body mass index [BMI] 23.0-23.9, adult; Z79.4 Long term (current) use of insulin; Z87.11 Personal history of peptic ulcer disease; Z89.421 Acquired absence of other right toe(s); Z89.411 Acquired absence of right great toe; Z90.49 Acquired absence of other specified parts of digestive tract; Z91.11 Patient's noncompliance with dietary regimen; Z91.19 Patient's noncompliance with other medical treatment and regimen; Z83.3 Family history of diabetes mellitus

== ENCOUNTER 2018-11-20 18:23 | Inpatient (IN) | payer MEDICARE ==
[2018-11-20 18:23] VITALS: BMI 23.1
[2018-11-20] MEDS ORDERED: Sodium Chloride 0.9% 500 ML IV ONE ×3 (18:42→21:49)
[2018-11-20] MEDS ORDERED: Morphine 4 MG/ML VIAL ONE ×2 (19:21→20:38)
[2018-11-20 19:23] LABS: BASO # 0.1 K/uL (0.0-0.2); BASO % 0.7 % (0.0-2.0); EOS % 0.3 % (0.0-4.0); HEMOGLOBIN 14.7 g/dL (12.0-18.0); LYMPH # 1.6 K/uL (1.0-4.3); LYMPH % 14.2 % (20.0-40.0); MEAN CELL VOLUME 81.9 fL (80.0-94.0); MEAN CORPUSCULAR HEMOGLOBIN 27.6 pg (27.0-31.0); MEAN CORPUSCULAR HGB CONC 33.6 g/dL (33.0-37.0); MEAN PLATELET VOLUME 8.3 fL (7.2-11.7); MONO # 0.6 K/uL (0.0-0.8); MONO % 5.6 % (0.0-10.0); NEUT # 9.1 K/uL (1.8-7.0); NEUT % 79.2 % (50.0-75.0); RBC 5.34 Mil/uL (4.40-5.90); RED CELL DISTRIBUTION WIDTH 14.5 % (11.5-14.5); WHITE BLOOD COUNT 11.5 K/uL (4.8-10.8)
[2018-11-20 19:44] LABS: ALB/GLOB RATIO 1.4 (1.0-2.1); ALBUMIN 4.9 g/dL (3.5-5.0); ALT/SGPT 31 U/L (21-72); AST/SGOT 54 U/L (17-59); BLOOD UREA NITROGEN 16 mg/dL (9-20); CALCIUM 9.2 mg/dl (8.6-10.4); GFR NON-AFRICAN AMERICAN 52; LIPASE < 10 U/L (23-300)
[2018-11-20] MEDS ORDERED: (Novolin R) Insulin Human Regular 100 units/ml vial IVP ONE ×3 (19:48→22:21)
[2018-11-20] MEDS ORDERED: Pantoprazole 80 MG in Sodium Chloride 0.9% 100 ML IVP STA (19:51)
[2018-11-20] MEDS ORDERED: (Novolin R) Insulin Human Regular 100 units/ml vial ONE ×3 (20:37→22:42)
[2018-11-20 20:58] LABS: BLOOD UREA NITROGEN 17 mg/dL (9-20); CALCIUM 8.5 mg/dl (8.6-10.4); GFR NON-AFRICAN AMERICAN 57
--- NOTE | 2018-11-20 21:02 | C.PDOC ---
History Of Present Illness Patient presents to ED c/o multiple episode of nausea/vomiting and epigastric abdominal pain x 2 days. He has PMHx of DM, gastritis, gastroparesis, HTN, hyperlipidemia, hyponatremia (?due to polydipsia). He denies chest pain, SOB, fever, cough, diarrhea, dysuria/hematuria. Time Seen by Provider: 11/20/18 18:25 Chief Complaint (Nursing): Abdominal Pain History Per: Patient History/Exam Limitations: no limitations Onset/Duration Of Symptoms: Days Current Symptoms Are (Timing): Still Present Severity: Moderate Location Of Pain/Discomfort: Epigastric Quality Of Discomfort: "Pain" Associated Symptoms: Nausea, Vomiting. denies: Fever, Diarrhea, Urinary Symptoms Past Medical History Reviewed: Historical Data, Nursing Documentation, Vital Signs Vital Signs: Last Vital Signs Temp 98.0 F 11/20/18 18:34 Pulse 103 H 11/20/18 20:05 Resp 20 11/20/18 20:05 BP 141/93 H 11/20/18 20:05 Pulse Ox 97 11/20/18 20:05 Primary Care Provider: Giovanni Vaughan - Medical History PMH: Diabetes, Gastritis, Gastrointestinal Ulcer, HTN, Hypercholesterolemia Surgical History: Appendectomy (right 2nd and 3rd toes partially amputated ,and Big toe) - [facility] Procedures DETACHMENT AT RIGHT 1ST TOE, LOW, OPEN APPROACH (08/20/17) EXCISION OF STOMACH, ENDO, DIAGN (08/17/18) Family History: States: No Known Family Hx - Social History Hx Alcohol Use: Yes (weekends) Hx Substance Use: No - Immunization History Hx Tetanus Toxoid Vaccination: No Hx Influenza Vaccination: No Hx Pneumococcal Vaccination: No Review Of Systems Constitutional: Negative for: Fever, Chills Cardiovascular: Negative for: Chest Pain, Palpitations Respiratory: Negative for: Cough, Shortness of Breath Gastrointestinal: Positive for: Nausea, Vomiting, Abdominal Pain. Negative for: Diarrhea Genitourinary: Negative for: Dysuria, Hematuria Skin: Negative for: Rash Neurological: Negative for: Seizures, Headache, Dizziness Physical Exam - Physical Exam Appears: Well, Non-toxic, In Acute Distress (in moderate discomfort, actively vomiting, (+) coffee ground emesis) Skin: Normal Color, Warm, Dry, No Pale Head: Normacephalic Eye(s): bilateral: Normal Inspection Oral Mucosa: Moist Neck: Supple Cardiovascular: Rhythm Regular (tachycardic ), Murmur (3/6 holosystolic ) Respiratory: Normal Breath Sounds, No Rales, No Rhonchi, No Wheezing Gastrointestinal/Abdominal: Bowel Sounds, Soft, Tenderness ((+) epigastric TTP, (-) Collier's, (-) McBurney's) Back: No CVA Tenderness Extremity: Normal ROM, No Swelling Pulses: Left Dorsalis Pedis: Normal, Right Dorsalis Pedis: Normal Neurological/Psych: Oriented x3 ED Course And Treatment - Laboratory Results Result Diagrams: 11/23/18 11:28 11/25/18 14:54 Lab Results: Total Bilirubin 3.4 mg/dL (0.2-1.3) H 11/20/18 19:20 AST 54 U/L (17-59) 11/20/18 19:20 ALT 31 U/L (21-72) 11/20/18 19:20 Alkaline Phosphatase 127 U/L (38-126) H D 11/20/18 19:20 Total Protein 8.4 g/dL (6.3-8.3) H 11/20/18 19:20 Albumin 4.9 g/dL (3.5-5.0) 11/20/18 19:20 Globulin 3.5 gm/dL (2.2-3.9) 11/20/18 19:20 Albumin/Globulin Ratio 1.4 (1.0-2.1) 11/20/18 19:20 Lipase < 10 U/L (23-300) L 11/20/18 19:20 ECG: Interpreted By Me, Viewed By Me (motrion artifact - sinus tachycardia 107 bpm, normal axis, no acute ST/T wave changes) ECG Interpretation: Abnormal (tachycardia ) O2 Sat by Pulse Oximetry: 97 (ra) Pulse Ox Interpretation: Normal Progress Note: Blood work, EKG, CXR ordered and reviewed. Patient given IV NS bolus, IV morphine, IV reglan, IV protonix. Multiple attempts made at peripheral IV access by nurses and myself, including B/L EJs - right leg 24 gauge inserted by me. Arterial stick right radial artery done for blood (by me). Patient tolerated well. (+) coffee ground emesis noted - IV protonix drip ordered and more IV fluids. 8:40pm- Discussed patient with Dr. Hawkins, will come eval patient for possible ICU. 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 No active UGIB at this time, patient stable for telemetry. - Physician Consult Information Physician Contacted: Giovanni Vaughan Outcome Of Conversation: Discussed patient with PMD, agrees with admission for hyponatremia, nausea/vomiting, gastroparesis, coffee ground emesis. Critical Care Time - Critical Care Note Total Time (in mins): 60 Documented critical care: time excludes all time spent performing seperately billable procedures. Disposition - Disposition Disposition: HOSPITALIZED Disposition Time: 19:53 Condition: FAIR - Clinical Impression Clinical Impression: Coffee ground vomiting, Gastroparesis, Nausea, Vomiting, Hyponatremia Decision To Admit - Pt Status Changed To: Hospital Disposition Of: Inpatient - Admit Certification Admit to Inpatient:: After my assessment, the patient will require hospitalization for at least two midnights. This is because of the severity of symptoms shown, intensity of services needed, and/or the medical risk in this patient being treated as an outpatient. - InPatient: Physician Admission Certification:: see notes - . Bed Request Type: Telemetry Admitting Physician: Giovanni Vaughan Patient Diagnosis: Nausea, Vomiting, Coffee ground vomiting, Gastroparesis, Hyponatremia
[2018-11-20 21:35] LABS: PROTHROMBIN TIME 11.2 SECONDS (9.7-12.2)
[2018-11-20] MEDS ORDERED: Potassium Chloride 20 mEq 100 ML ONE (22:42)
[2018-11-20] MEDS ORDERED: Sodium Chloride 0.9% 1,000 ML ONE (22:42)
--- NOTE | 2018-11-20 22:45 | CP.PCM.CON ---
History of Present Illness - History of Present Illness History of Present Illness: CCM 58 yo black mle with hx HTN /HLD /DM /Gastritis /Gastroparesis /Prior hyponatremia episodes to ED c/o nausea,vomiting, abd. pain x 2 days. Some darkish material in vomitus. No chest pain /sob /fever/diarrhea. Pt getting IV fluid in ED and has received 4 units insulin and morphine. ROS- as noted All- NKDA Social-denied etoh for 7 mos/ denied drugs Meds- reviewed FH- Unknown PE T-98 P-98 R-18 BP-147/93 Alert responisve/ some retching and brings small volume vomits with few dark specks Perrl Neck- no jvdlungs- bilat bs Heart-rr aBd- bs+, soft,no localized tenderness Ext- no edema, nontender Neuro- nonfocal Labs,ekg,a-tyza-ferxzyoe A&P Hyponatremia Uncontrolled DM Dehydration JAY Vomiting Hypokalemia Gastritis Gastroparesis HTN HLD continue IV NS Hydration Supplement Kcl IV After K+, increase insulin coverage Add Zofran to raglan Analgesia prn /cont PPI consider trial Ativan( Possiblity of Cyclic Vomiting Syndrome) f/u BMP /cbc CBG monitoring consider GI eval DVT Prophylaxis re-consult prn d/w ED staff Past Patient History - Infectious Disease Hx of Infectious Diseases: None - Tetanus Immunizations Tetanus Immunization: Unknown - Past Medical History & Family History Past Medical History?: Yes - Past Social History Smoking Status: Unknown If Ever Smoked - CARDIAC Hx Hypercholesterolemia: Yes Hx Hypertension: Yes - PULMONARY Hx Respiratory Disorders: No - NEUROLOGICAL Hx Neurological Disorder: No - HEENT Hx HEENT Problems: No - RENAL Hx Chronic Kidney Disease: No - ENDOCRINE/METABOLIC Hx Endocrine Disorders: Yes Hx Diabetes Mellitus Type 2: Yes - HEMATOLOGICAL/ONCOLOGICAL Hx Blood Disorders: No - INTEGUMENTARY Hx Dermatological Problems: Yes Other/Comment: HX: GANGRENE RIGHT FOOT TOE(GREAT) surgery. 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) surgery - MUSCULOSKELETAL/RHEUMATOLOGICAL Hx Musculoskeletal Disorders: No Hx Falls: Yes - GASTROINTESTINAL Hx Gastritis: Yes - GENITOURINARY/GYNECOLOGICAL Hx Genitourinary Disorders: No - PSYCHIATRIC Hx Substance Use: No - SURGICAL HISTORY Hx Appendectomy: Yes (right 2nd and 3rd toes partially amputated ,and Big toe) - ANESTHESIA Hx Anesthesia: Yes Hx Anesthesia Reactions: No Hx Malignant Hyperthermia: No Meds Allergies/Adverse Reactions: Allergies Allergy/AdvReac Type Severity Reaction Status Date / Time No Known Allergies Allergy Verified 11/20/18 18:40 - Medications Medications: Current Medications Chlorpromazine (Thorazine) 25 mg PO TID PRN PRN Reason: Hiccups Enoxaparin Sodium (Lovenox) 40 mg SC DAILY KEVYN Famotidine (Pepcid) 20 mg IVP Q12 KEVYN Pantoprazole Sodium 80 mg/ (Sodium Chloride) 100 mls @ 10 mls/hr IVP .Q10H STA Stop: 11/21/18 05:50 Last Admin: 11/20/18 21:39 Dose: 10 mls/hr Sodium Chloride (Sodium Chloride 0.9%) 1,000 mls @ 100 mls/hr IV .Q10H KEVYN Potassium Chloride (Potassium Chloride 20 Meq/100 Ml) 20 meq in 100 mls @ 50 mls/hr IVPB ONCE ONE Stop: 11/21/18 00:19 Insulin Aspart (Novolog Mix 70/30 (70/30 Units/Ml)) 30 units SC BID KEVYN Insulin Human Regular (Novolin R) 0 unit SC ACHS KEVYN; Protocol Metformin HCl (Glucophage) 500 mg PO BID KEVYN Metoclopramide HCl (Reglan) 10 mg IVP ACHS KEVYN Rosuvastatin Calcium (Crestor) 2.5 mg PO HS KEVYN Results - Vital Signs Recent Vital Signs: Last Vital Signs Temp 98.0 F 11/20/18 18:34 Pulse 103 H 11/20/18 22:24 Resp 18 11/20/18 22:24 BP 109/60 11/20/18 22:24 Pulse Ox 95 11/20/18 22:24 - Labs Result Diagrams: 11/20/18 19:20 11/20/18 20:38 Labs: Laboratory Results - last 24 hr 11/20/18 11/20/18 11/20/18 18:42 19:20 19:20 WBC 11.5 H D RBC 5.34 Hgb 14.7 D Hct 43.8 MCV 81.9 MCH 27.6 MCHC 33.6 RDW 14.5 Plt Count 442 H MPV 8.3 Neut % (Auto) 79.2 H Lymph % (Auto) 14.2 L [place] % (Auto) 5.6 Eos % (Auto) 0.3 Baso % (Auto) 0.7 Neut # (Auto) 9.1 H Lymph # (Auto) 1.6 [place] # (Auto) 0.6 Eos # (Auto) 0.0 Baso # (Auto) 0.1 PT INR APTT Sodium 115 L* Potassium 3.6 Chloride 67 L D Carbon Dioxide 28 Anion Gap 24 H BUN 16 Creatinine 1.4 Est GFR ( Amer) > 60 Est GFR (Non-Af Amer) 52 POC Glucose (mg/dL) 317 H Random Glucose 329 H Calcium 9.2 Total Bilirubin 3.4 H AST 54 ALT 31 Alkaline Phosphatase 127 H D Total Protein 8.4 H Albumin 4.9 Globulin 3.5 Albumin/Globulin Ratio 1.4 Lipase < 10 L Blood Type Antibody Screen 11/20/18 11/20/18 11/20/18 20:38 21:17 21:17 WBC RBC Hgb Hct MCV MCH MCHC RDW Plt Count MPV Neut % (Auto) Lymph % (Auto) [place] % (Auto) Eos % (Auto) Baso % (Auto) Neut # (Auto) Lymph # (Auto) [place] # (Auto) Eos # (Auto) Baso # (Auto) PT 11.2 INR 1.0 APTT 35.0 H Sodium 113 L* Potassium 3.5 L Chloride 69 L Carbon Dioxide 22 Anion Gap 25 H BUN 17 Creatinine 1.3 Est GFR ( Amer) > 60 Est GFR (Non-Af Amer) 57 POC Glucose (mg/dL) Random Glucose 359 H Calcium 8.5 L Total Bilirubin AST ALT Alkaline Phosphatase Total Protein Albumin Globulin Albumin/Globulin Ratio Lipase Blood Type O POSITIVE Antibody Screen Negative 11/20/18 21:47 WBC RBC Hgb Hct MCV MCH MCHC RDW Plt Count MPV Neut % (Auto) Lymph % (Auto) [place] % (Auto) Eos % (Auto) Baso % (Auto) Neut # (Auto) Lymph # (Auto) [place] # (Auto) Eos # (Auto) Baso # (Auto) PT INR APTT Sodium Potassium Chloride Carbon Dioxide Anion Gap BUN Creatinine Est GFR ( Amer) Est GFR (Non-Af Amer) POC Glucose (mg/dL) 312 H Random Glucose Calcium Total Bilirubin AST ALT Alkaline Phosphatase Total Protein Albumin Globulin Albumin/Globulin Ratio Lipase Blood Type Antibody Screen
[2018-11-20] MEDS: Sodium Chloride 0.9% 1,000 ML IV SCH (22:46)
[2018-11-20 23:38] LABS: SQUAMOUS EPITHIAL 2 /hpf (0-5); URINE BILIRUBIN NEGATIVE (NEGATIVE); URINE BLOOD 1+ (NEGATIVE); URINE CLARITY Clear (Clear); URINE COLOR Yellow (YELLOW); URINE GLUCOSE (UA) 3+ mg/dL (Normal); URINE LEUKOCYTE ESTERASE NEG Leu/uL (Negative); URINE PROTEIN NEGATIVE (NEGATIVE); URINE UROBILINOGEN NORMAL mg/dL (0.2-1.0)
[2018-11-21] MEDS ORDERED: Pantoprazole 80 MG in Sodium Chloride 0.9% 100 ML IVP SCH (06:00)
[2018-11-21] MEDS: LIPASE/PROTEASE/AMYLASE 4,200 U ECC PO SCH ×3 (06:45→16:12)
[2018-11-21] MEDS: (Novolin R) Insulin Human Regular 100 units/ml vial SC SCH ×4 (08:36→21:35)
[2018-11-21] MEDS: Sodium Chloride 0.9% 1,000 ML IV SCH ×2 (08:37→18:00)
[2018-11-21 08:53] LABS: BLOOD UREA NITROGEN 13 mg/dL (9-20); CALCIUM 8.2 mg/dl (8.6-10.4); GFR NON-AFRICAN AMERICAN > 60
[2018-11-21] MEDS: Enoxaparin 40 mg Syringe SC SCH (10:30)
[2018-11-21] MEDS: (Novolog Mix 70/30) Insulin Aspart/Insulin Aspar 100 units/ml SC SCH ×2 (10:31→18:00)
--- NOTE | 2018-11-21 13:45 | PN ---
DATE: 11/21/2018 LOCATION: 570, bed A. SUBJECTIVE: This is a 58-year-old male seen for GI consultation initially on 11/20/2018 as requested by the admitting medical staff, re-examined again today with intermittent period of abdominal pain, with episode of hiccup and nausea, with intermittent period of vomiting, without reported active bleeding, actual chest pain, palpitation, or significant shortness of breath. No chills or fever. Most recent lab results showed today sodium of 124 with glucose level of 208, calcium at 0.2. Initially, the patient had low lipase level, less than 10 with reported total bilirubin of 3.4 of unclear etiology. PHYSICAL EXAMINATION: GENERAL: A 58-year-old male. awake, alert, oriented. VITAL SIGNS: Afebrile with pulse of 74, respiratory rate 20 to 22, and blood pressure of 124/58. HEENT: Showed pale, dry oral mucous membrane with bilateral icteric sclerae. LUNGS: Few scattered crepitation. Decreased air entry at bases. HEART: Positive S1 and S2. ABDOMEN: Soft with mild generalized tenderness and slight distention. No mass or organomegaly. No rebound tenderness or guarding. EXTREMITIES: Without significant clubbing or cyanosis, but mild lower extremity edematous changes. NEUROLOGIC: No reported new neurological deficits, sensory or motor. No reported new focal deficits. IMPRESSION: 1. Re-exacerbation of peptic ulcer disease with diabetic gastroparesis. 2. Poorly controlled diabetes mellitus. 3. Electrolyte imbalance with mainly hyponatremia, which contributes to the patient's symptoms. The patient has nausea and vomiting. 4. Multiple past medical history including gastric ulcer, hypertension, hyperlipidemia. 5. Poorly controlled hypertension. 6. Known history of hyperlipidemia. 7. Status post appendectomy with partial amputation of the big right toe as well as amputation of the right second and third toes. SUGGESTION: 1. Agree with your plan. 2. Antireflux measure. 3. Increase the dose of Reglan as needed. 4. Correct any underlying electrolyte imbalance. 5. Further recommendations to follow. Chad Palafox MD
[2018-11-21] MEDS: Pantoprazole 80 MG in Sodium Chloride 0.9% 100 ML IVPB SCH (16:12)
[2018-11-21] MEDS: Rosuvastatin Calcium 2.5 mg Tab PO SCH (21:33)
--- NOTE | 2018-11-21 21:41 | CARD ---
APPROVED REPORT Date of service: 11/20/2018 EKG Measurement Heart [id number] <Conclusion> Sinus tachycardia with frequent atrial premature beats Nonspecific ST abnormality Abnormal ECG
--- NOTE | 2018-11-21 22:33 | CP.PCM.HP ---
Present on Admission - Present on Admission Any Indicators Present on Admission: Yes History of Uncontrolled Diabetes: Yes Past Patient History - Infectious Disease Hx of Infectious Diseases: None - Tetanus Immunizations Tetanus Immunization: Unknown - Past Medical History & Family History Past Medical History?: Yes - Past Social History Smoking Status: Unknown If Ever Smoked - CARDIAC Hx Hypercholesterolemia: Yes Hx Hypertension: Yes - PULMONARY Hx Respiratory Disorders: No - NEUROLOGICAL Hx Neurological Disorder: No - HEENT Hx HEENT Problems: No - RENAL Hx Chronic Kidney Disease: No - ENDOCRINE/METABOLIC Hx Endocrine Disorders: Yes Hx Diabetes Mellitus Type 2: Yes - HEMATOLOGICAL/ONCOLOGICAL Hx Blood Disorders: No - INTEGUMENTARY Hx Dermatological Problems: Yes Other/Comment: HX: GANGRENE RIGHT FOOT TOE(GREAT) surgery. 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) surgery - MUSCULOSKELETAL/RHEUMATOLOGICAL Hx Musculoskeletal Disorders: No Hx Falls: Yes - GASTROINTESTINAL Hx Gastritis: Yes - GENITOURINARY/GYNECOLOGICAL Hx Genitourinary Disorders: No - PSYCHIATRIC Hx Substance Use: No - SURGICAL HISTORY Hx Appendectomy: Yes (right 2nd and 3rd toes partially amputated ,and Big toe) - ANESTHESIA Hx Anesthesia: Yes Hx Anesthesia Reactions: No Hx Malignant Hyperthermia: No Meds Allergies/Adverse Reactions: Allergies Allergy/AdvReac Type Severity Reaction Status Date / Time No Known Allergies Allergy Verified 11/20/18 18:40 Results - Vital Signs Recent Vital Signs: Last Vital Signs Temp 98.3 F 11/21/18 15:00 Pulse 76 11/21/18 19:30 Resp 20 11/21/18 15:00 BP 116/67 11/21/18 15:00 Pulse Ox 95 11/21/18 15:00 - Labs Result Diagrams: 11/20/18 19:20 11/21/18 08:20 Labs: Laboratory Results - last 24 hr 11/20/18 11/20/18 11/21/18 23:32 23:35 06:45 Sodium Potassium Chloride Carbon Dioxide Anion Gap BUN Creatinine Est GFR ( Amer) Est GFR (Non-Af Amer) POC Glucose (mg/dL) 164 H 186 H Random Glucose Calcium Urine Color Yellow Urine Clarity Clear Urine pH 6.0 Ur Specific Max 1.008 Urine Protein Negative Urine Glucose (UA) 3+ H Urine Ketones 1+ H Urine Blood 1+ H Urine Nitrate Negative Urine Bilirubin Negative Urine Urobilinogen Normal Ur Leukocyte Esterase Neg Urine WBC (Auto) 2 Urine RBC (Auto) 1 Ur Squamous Epith Cells 2 11/21/18 11/21/18 11/21/18 08:20 11:28 16:16 Sodium 124 L Potassium 3.7 Chloride 83 L D Carbon Dioxide 26 Anion Gap 18 BUN 13 Creatinine 1.0 Est GFR ( Amer) > 60 Est GFR (Non-Af Amer) > 60 POC Glucose (mg/dL) 235 H 121 H Random Glucose 209 H D Calcium 8.2 L Urine Color Urine Clarity Urine pH Ur Specific Max Urine Protein Urine Glucose (UA) Urine Ketones Urine Blood Urine Nitrate Urine Bilirubin Urine Urobilinogen Ur Leukocyte Esterase Urine WBC (Auto) Urine RBC (Auto) Ur Squamous Epith Cells 11/21/18 11/21/18 11/21/18 21:13 21:15 21:50 Sodium Potassium Chloride Carbon Dioxide Anion Gap BUN Creatinine Est GFR ( Amer) Est GFR (Non-Af Amer) POC Glucose (mg/dL) 32 L* 32 L* 94 Random Glucose Calcium Urine Color Urine Clarity Urine pH Ur Specific Max Urine Protein Urine Glucose (UA) Urine Ketones Urine Blood Urine Nitrate Urine Bilirubin Urine Urobilinogen Ur Leukocyte Esterase Urine WBC (Auto) Urine RBC (Auto) Ur Squamous Epith Cells
--- NOTE | 2018-11-21 22:48 | CP.PCM.CON ---
History of Present Illness - History of Present Illness History of Present Illness: IDDM Past Patient History - Infectious Disease Hx of Infectious Diseases: None - Tetanus Immunizations Tetanus Immunization: Unknown - Past Medical History & Family History Past Medical History?: Yes - Past Social History Smoking Status: Unknown If Ever Smoked - CARDIAC Hx Hypercholesterolemia: Yes Hx Hypertension: Yes - PULMONARY Hx Respiratory Disorders: No - NEUROLOGICAL Hx Neurological Disorder: No - HEENT Hx HEENT Problems: No - RENAL Hx Chronic Kidney Disease: No - ENDOCRINE/METABOLIC Hx Endocrine Disorders: Yes Hx Diabetes Mellitus Type 2: Yes - HEMATOLOGICAL/ONCOLOGICAL Hx Blood Disorders: No - INTEGUMENTARY Hx Dermatological Problems: Yes Other/Comment: HX: GANGRENE RIGHT FOOT TOE(GREAT) surgery. 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) surgery - MUSCULOSKELETAL/RHEUMATOLOGICAL Hx Musculoskeletal Disorders: No Hx Falls: Yes - GASTROINTESTINAL Hx Gastritis: Yes - GENITOURINARY/GYNECOLOGICAL Hx Genitourinary Disorders: No - PSYCHIATRIC Hx Substance Use: No - SURGICAL HISTORY Hx Appendectomy: Yes (right 2nd and 3rd toes partially amputated ,and Big toe) - ANESTHESIA Hx Anesthesia: Yes Hx Anesthesia Reactions: No Hx Malignant Hyperthermia: No Meds Allergies/Adverse Reactions: Allergies Allergy/AdvReac Type Severity Reaction Status Date / Time No Known Allergies Allergy Verified 11/20/18 18:40 - Medications Medications: Current Medications Chlorpromazine (Thorazine) 25 mg IM Q8 PRN PRN Reason: Hiccups Last Admin: 11/20/18 23:26 Dose: 25 mg Enoxaparin Sodium (Lovenox) [address] [facility] Last Admin: 11/21/18 10:30 Dose: 40 mg Sodium Chloride (Sodium Chloride 0.9%) 1,000 mls @ 100 mls/hr IV .Q10H [facility] Last Admin: 11/21/18 18:00 Dose: 100 mls/hr Pantoprazole Sodium 80 mg/ (Sodium Chloride) 100 mls @ 10 mls/hr IVPB .Q10H [facility] Last Admin: 11/21/18 16:12 Dose: 10 mls/hr Insulin Aspart (Novolog Mix 70/30 (70/30 Units/Ml)) 30 units SC BID [facility] Last Admin: 11/21/18 18:00 Dose: 30 units Insulin Human Regular (Novolin R) [address] [facility]; Protocol Last Admin: 11/21/18 21:35 Dose: Not Given Metformin HCl (Glucophage) 500 mg PO BID [facility] Last Admin: 11/21/18 18:00 Dose: 500 mg Metoclopramide HCl (Reglan) 10 mg IVP ACHS [facility] Last Admin: 11/21/18 21:32 Dose: 10 mg Morphine Sulfate (Morphine) 2 mg IVP Q4 PRN PRN Reason: pain Last Admin: 11/21/18 14:46 Dose: 2 mg Rosuvastatin Calcium (Crestor) 2.5 mg PO HS [facility] Last Admin: 11/21/18 21:33 Dose: 2.5 mg Results - Vital Signs Recent Vital Signs: Last Vital Signs Temp 98.3 F 11/21/18 15:00 Pulse 76 11/21/18 19:30 Resp 20 11/21/18 15:00 BP 116/67 11/21/18 15:00 Pulse Ox 95 11/21/18 15:00 - Labs Result Diagrams: 11/20/18 19:20 11/21/18 08:20 Labs: Laboratory Results - last 24 hr 11/20/18 11/20/18 11/21/18 23:32 23:35 06:45 Sodium Potassium Chloride Carbon Dioxide Anion Gap BUN Creatinine Est GFR ( Amer) Est GFR (Non-Af Amer) POC Glucose (mg/dL) 164 H 186 H Random Glucose Calcium Urine Color Yellow Urine Clarity Clear Urine pH 6.0 Ur Specific [place] 1.008 Urine Protein Negative Urine Glucose (UA) 3+ H Urine Ketones 1+ H Urine Blood 1+ H Urine Nitrate Negative Urine Bilirubin Negative Urine Urobilinogen Normal Ur Leukocyte Esterase Neg Urine WBC (Auto) 2 Urine RBC (Auto) 1 Ur Squamous Epith Cells 2 11/21/18 11/21/18 11/21/18 08:20 11:28 16:16 Sodium 124 L Potassium 3.7 Chloride 83 L D Carbon Dioxide 26 Anion Gap 18 BUN 13 Creatinine 1.0 Est GFR ( Amer) > 60 Est GFR (Non-Af Amer) > 60 POC Glucose (mg/dL) 235 H 121 H Random Glucose 209 H D Calcium 8.2 L Urine Color Urine Clarity Urine pH Ur Specific [place] Urine Protein Urine Glucose (UA) Urine Ketones Urine Blood Urine Nitrate Urine Bilirubin Urine Urobilinogen Ur Leukocyte Esterase Urine WBC (Auto) Urine RBC (Auto) Ur Squamous Epith Cells 11/21/18 11/21/18 11/21/18 21:13 21:15 21:50 Sodium Potassium Chloride Carbon Dioxide Anion Gap BUN Creatinine Est GFR ( Amer) Est GFR (Non-Af Amer) POC Glucose (mg/dL) 32 L* 32 L* 94 Random Glucose Calcium Urine Color Urine Clarity Urine pH Ur Specific [place] Urine Protein Urine Glucose (UA) Urine Ketones Urine Blood Urine Nitrate Urine Bilirubin Urine Urobilinogen Ur Leukocyte Esterase Urine WBC (Auto) Urine RBC (Auto) Ur Squamous Epith Cells Assessment & Plan (1) Diabetes mellitus with neuropathy Status: Acute (2) Diabetes mellitus, insulin dependent (IDDM), uncontrolled Assessment and Plan: Endocrine consult reason for consult: uncontrolled diabetes Source: patient and chart review Nikolas Espinosa is 58 y/o known to endocrine admitted for nausea & vomiting /abdominal pain As per pt. has DM for more than 20 years (+ ) neuropathy , (-) retinopathy , (-) nephropathy (-) CAD (+ ) PVD s/p right toe amputation , partial amputations of 2 other right toes contacted today for glucose >400 almost @ 11:30 am , recommendation pt to given the coverage besides prandial dose of 4 units with lunch , as per nurse in charge pt always drink juice & soda , nutritional evaluation was recommended blood glucose log :120-200 one episode 33 eating better , nausea & vomiting much better today denies h/o thyroid disorder Allergy NKDA Past medical history:HTN , hyperlipidemia Past surgical history: appendectomy , right toe amputation Psychiatry history: denies Social history: ex- smoking , occasional ETOH use , denies illicit drug use Family history: father with dm ROS: Constitutional: denies fever, tiredness/weakness. HEENT: denies earache, change in voice .Respiratory: denies cough, sob . CVS :no chest pain, no palpitations . Abdomen: no abdominal pain, (+) nausea (+) vomiting, no change bowel movement. 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 Extremities: no edema, no tremors. Skin: no itching, no rash Physical exam Well-developed AAO x3 , ,NAD VSS HEENT: norm cephalic, atraumatic, no lid lag , no exophthalmos NECK: supple, no palpable lymphadenopathy THYROID: no palpable thyromegaly, not tender CHEST: fair air entry, bilateral, CVS: S1,S2 ABDOMEN: bowel sound present, benign, , no wide purple striae , no bruises EXTREMITIES: no edema, clubbing or cyanosis, no palpable hand tremors , right foot with dressing Skin: acanthosis nigricans -lab: 10/2018 a1c 9.3 , cmp wnl , urine (+) opiate , wbc 10 , TSH 5.4 was 9 , FT 3 2.8 , FT4 1.8 08/2018 tsh 9.3 , a1c 9.3 Assessment: hypoglycemia uncontrolled IDDM with neuropathy /gastroparesis PVD s/p right toe amputation hypothyroidism abdominal pain plan : stop Metformin stop novolog 70/30 start lantus 10 units sq bid q 12 h change regular insulin to low dose coverage tid & hs start regular 4 units sq tid with meals if eat more than 60% of the meal monitor thyroid functions Thank you for allowing me to participate in the care of the patient, we will follow with you. Stanley Ferrari # [phone] office Fridays & Saturdays address: [address] [place] [address] ,phone # [phone] ,FAX [phone] Status: Acute (3) Hypoglycemia associated with diabetes Status: Acute (4) Abdominal pain Status: Acute
[2018-11-22] MEDS: Pantoprazole 80 MG in Sodium Chloride 0.9% 100 ML IVPB SCH ×3 (01:46→21:28)
[2018-11-22] MEDS: Sodium Chloride 0.9% 1,000 ML IV SCH ×3 (04:16→23:18)
--- NOTE | 2018-11-22 04:27 | HP ---
CHIEF COMPLAINT: Nausea, vomiting and hiccups x2 days. HISTORY OF PRESENT ILLNESS: This is a 58-year-old -[place] male, well known to me, with history of type 2 diabetes on insulin, hypertension, hyperlipidemia, and diabetic gastroparesis. The patient also has history of large volume water intake, in his usual status of health, he is ambulatory and independent in activities of daily living with history of multiple hospitalizations because of nausea, vomiting, hiccups, uncontrolled sugar, polyuria, polydipsia, polyphagia, generalized weakness, tiredness, anorexia, malaise and fatigue. The patient denies any history of fever, chills, rigors. He denies any history of cough, sore throat, runny nose. He denies any sneezing, itchy eyes, itchy nose. He denies any history of trauma, fall, loss of consciousness. There is no history of involuntary movement. There is no history of seizure disorder. The patient claims to be compliant with his diet, medication, and followup. The patient in the past has been evaluated for possibility of diabetic gastroparesis. He had extensive endoscopy. He denies any history of joint pain, hip pain. He has tingling in the feet. He denies any history of low sugar. He denies any history of joint pain, skin rash, itchy eyes, itchy nose. ALLERGIES: UNKNOWN. CURRENT MEDICATIONS: He is on Zocor, metformin, Pancrease, NovoLog 70/30 mix, Pepcid, Zofran, Thorazine, Reglan. SOCIAL HISTORY: He is a nonsmoker, social ETOH user. FAMILY HISTORY: Negative for coronary artery disease. PAST MEDICAL HISTORY: Type 2 diabetes on insulin, hypertension, hyperlipidemia, diabetic gastroparesis. PHYSICAL EXAMINATION: GENERAL: A middle-aged male, in no acute distress. At the moment, he is feeling better. He feels less nauseous, less vomiting. VITAL SIGNS: Blood pressure 116/67, pulse rate is 75, respiratory rate 20, temperature 98.3. SKIN: Fair turgor. No bruise. No purpura. No petechiae. No ecchymosis. HEENT: Atraumatic, normocephalic. Negative pallor. Negative jaundice. Extraocular movements are intact. NECK: Supple. No JVD. No lymph node. No thyromegaly. CHEST WALL: Bilateral symmetrical expansion. LUNGS: Bilaterally clear. No rale. No rhonchi. CARDIOVASCULAR SYSTEM: PMI not localized. S1, S2. Regular. No heave. No thrill. ABDOMEN: Soft, nontender. Bowel sound are positive. RECTAL: No masses. No bleed. EXTREMITIES: No clubbing, cyanosis, edema. CENTRAL NERVOUS SYSTEM: Awake, alert, oriented x3. Cranial nerves II through XII are normal. Power 5/5 x4. Plantars are downgoing. ASSESSMENT: 1. Diabetes, nausea, vomiting, rule out gastritis, rule out peptic ulcer disease, rule out diabetic gastroparesis. 2. Low sodium. It could be pseudohyponatremia with hyperglycemia versus osmotic diuresis with dehydration but it could also be due to psychogenic polydipsia. 3. Dehydration. 4. Hypertension. PLAN: Admit, detailed orders are written, seen and examined. Giovanni Vaughan MD
[2018-11-22] MEDS: LIPASE/PROTEASE/AMYLASE 4,200 U ECC PO SCH ×3 (06:53→17:07)
[2018-11-22] MEDS: (Novolin R) Insulin Human Regular 100 units/ml vial SC SCH ×7 (08:00→22:02)
--- NOTE | 2018-11-22 08:02 | PN ---
DATE: 11/22/2018 LOCATION: 570, bed A. SUBJECTIVE: This is a 58-year-old male, seen and examined early in rounds with intermittent complaint of nausea, vomiting but less than before with much less hiccup without reported active GI bleeding, no chest pain or palpitation, significant increase of shortness of breath, somewhat tolerating oral intake. No chills or fever. The entire chart is reviewed including but not limited to the most recent lab and radiology study results, current and the previous medication list and today's blood glucose level reported to be 143. PHYSICAL EXAMINATION: GENERAL: A 58-year-old male, awake, alert, oriented. VITAL SIGNS: Afebrile with pulse of 80, respiratory rate 20 to 22, blood pressure of 120/68. HEENT: Showed pale, dry mucous membrane. Nonicteric sclerae. LUNGS: Few scattered crepitation. Decreased air entry at bases. HEART: Positive S1 and S2. ABDOMEN: Soft with slight distention. Bowel sounds are hyperactive with mild generalized tenderness. No mass or organomegaly. No rebound tenderness or guarding. EXTREMITIES: Without significant clubbing, cyanosis or edema. NEUROLOGIC: No reported new neurological deficits, sensory or motor. IMPRESSION: 1. Re-exacerbation of peptic ulcer disease with known history of gastric ulcer. 2. Poorly controlled diabetes mellitus with diabetic gastroparesis. 3. Electrolyte imbalance with hyponatremia which also can contribute to the patient's recurrent episode of nausea and vomiting. 4. Multiple past medical history including hypertension, hyperlipidemia with status post appendectomy as well as partial amputation of the big right toe, by history. SUGGESTIONS: 1. Continue current management. 2. Subsequent increase of the rate of Reglan as needed. 3. If the patient's symptoms persist, then erythromycin 500 mg IV piggyback every 6 hours to start. 4. Again, the patient will need gastric pacemaker stimulator. 5. Further recommendation to follow. Chad Palafox MD
[2018-11-22 08:16] LABS: BLOOD UREA NITROGEN 7 mg/dL (9-20); CALCIUM 8.1 mg/dl (8.6-10.4); GFR NON-AFRICAN AMERICAN > 60
[2018-11-22] MEDS ORDERED: Potassium Chloride 20 mEq ER Tab PO ONE (10:00)
[2018-11-22] MEDS: (Lantus) Insulin Glargine, Recombinant SC SCH ×2 (10:03→22:02)
[2018-11-22] MEDS: Enoxaparin 40 mg Syringe SC SCH (10:04)
[2018-11-22 16:09] VITALS: RESP 20
--- NOTE | 2018-11-22 19:47 | CP.PCM.PN ---
Subjective - Date & Time of Evaluation Date of Evaluation: 11/22/18 Time of Evaluation: 08:00 - Subjective Subjective: dict Objective - Vital Signs/Intake and Output Vital Signs (last 24 hours): Temp Pulse Resp BP Pulse Ox 98.3 F 69 20 137/71 98 11/22/18 15:00 11/22/18 15:00 11/22/18 15:00 11/22/18 15:00 11/22/18 15:00 - Medications Medications: Current Medications Enoxaparin Sodium (Lovenox) 40 mg SC DAILY [facility] Last Admin: 11/22/18 10:04 Dose: Not Given Sodium Chloride (Sodium Chloride 0.9%) 1,000 mls @ 100 mls/hr IV .Q10H [facility] Last Admin: 11/22/18 13:59 Dose: 100 mls/hr Pantoprazole Sodium 80 mg/ (Sodium Chloride) 100 mls @ 10 mls/hr IVPB .Q10H [facility] Last Admin: 11/22/18 11:02 Dose: 10 mls/hr Insulin Glargine (Lantus) 10 unit SC Q12 [facility] Last Admin: 11/22/18 10:03 Dose: 10 units Insulin Human Regular (Novolin R) 0 unit SC ACHS [facility]; Protocol Last Admin: 11/22/18 17:08 Dose: 1 units Insulin Human Regular (Novolin R) 4 unit SC TIDPC [facility] Last Admin: 11/22/18 17:08 Dose: 4 units Morphine Sulfate (Morphine) 2 mg IVP Q4 PRN PRN Reason: pain Last Admin: 11/22/18 18:59 Dose: 2 mg Ondansetron HCl (Zofran Inj) 4 mg IVP Q6H PRN PRN Reason: Nausea/Vomiting Last Admin: 11/22/18 19:15 Dose: 4 mg Rosuvastatin Calcium (Crestor) 2.5 mg PO HS [facility] Last Admin: 11/21/18 21:33 Dose: 2.5 mg - Labs Labs: 11/20/18 19:20 11/22/18 07:52 PT 11.2 SECONDS (9.7-12.2) 11/20/18 21:17 INR 1.0 11/20/18 21:17 APTT 35.0 SECONDS (21-34) H 11/20/18 21:17
--- NOTE | 2018-11-22 21:16 | CP.PCM.CON ---
History of Present Illness - History of Present Illness History of Present Illness: CC: Uncontrolled HTN, Hyponatremia Patient presents to ED c/o multiple episode of nausea/vomiting and epigastric abdominal pain x 2 days. He has PMHx of DM, gastritis, gastroparesis, HTN, hyperlipidemia, hyponatremia (?due to polydipsia). He denies chest pain, SOB, fever, cough, diarrhea, dysuria/hematuria. Chief Complaint (Nursing): Abdominal Pain History Per: Patient History/Exam Limitations: no limitations Onset/Duration Of Symptoms: Days Current Symptoms Are (Timing): Still Present Severity: Moderate Location Of Pain/Discomfort: Epigastric Quality Of Discomfort: "Pain" Associated Symptoms: Nausea, Vomiting. denies: Fever, Diarrhea, Urinary Symptoms Primary Care Provider: Giovanni Vaughan - Medical History PMH: Diabetes, Gastritis, Gastrointestinal Ulcer, HTN, Hypercholesterolemia Surgical History: Appendectomy (right 2nd and 3rd toes partially amputated ,and Big toe) - [facility] Procedures DETACHMENT AT RIGHT 1ST TOE, LOW, OPEN APPROACH (08/20/17) EXCISION OF STOMACH, ENDO, DIAGN (08/17/18) Family History: States: No Known Family Hx - Social History Hx Alcohol Use: Yes (weekends) Hx Substance Use: No - Immunization History Hx Tetanus Toxoid Vaccination: No Hx Influenza Vaccination: No Hx Pneumococcal Vaccination: No Review Of Systems Constitutional: Negative for: Fever, Chills Cardiovascular: Negative for: Chest Pain, Palpitations Respiratory: Negative for: Cough, Shortness of Breath Gastrointestinal: Positive for: Nausea, Vomiting, Abdominal Pain. Negative for: Diarrhea Genitourinary: Negative for: Dysuria, Hematuria Skin: Negative for: Rash Neurological: Negative for: Seizures, Headache, Dizziness Physical Exam - Physical Exam Appears: Well, Non-toxic, In Acute Distress (in moderate discomfort, actively vomiting, (+) coffee ground emesis) Skin: Normal Color, Warm, Dry, No Pale Eye(s): bilateral: Normal Inspection Oral Mucosa: Moist Cardiovascular: Rhythm Regular (tachycardic ), Murmur (3/6 holosystolic ) Respiratory: Normal Breath Sounds, No Rales, No Rhonchi, No Wheezing Gastrointestinal/Abdominal: Bowel Sounds, Soft, Tenderness ((+) epigastric TTP, (-) Collier's, (-) McBurney's) Back: No CVA Tenderness Neurological/Psych: Oriented x3 Past Patient History - Infectious Disease Hx of Infectious Diseases: None - Tetanus Immunizations Tetanus Immunization: Unknown - Past Medical History & Family History Past Medical History?: Yes - Past Social History Smoking Status: Unknown If Ever Smoked - CARDIAC Hx Hypercholesterolemia: Yes Hx Hypertension: Yes - PULMONARY Hx Respiratory Disorders: No - NEUROLOGICAL Hx Neurological Disorder: No - HEENT Hx HEENT Problems: No - RENAL Hx Chronic Kidney Disease: No - ENDOCRINE/METABOLIC Hx Endocrine Disorders: Yes Hx Diabetes Mellitus Type 2: Yes - HEMATOLOGICAL/ONCOLOGICAL Hx Blood Disorders: No - INTEGUMENTARY Hx Dermatological Problems: Yes Other/Comment: HX: GANGRENE RIGHT FOOT TOE(GREAT) surgery. 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) surgery - MUSCULOSKELETAL/RHEUMATOLOGICAL Hx Musculoskeletal Disorders: No Hx Falls: Yes - GASTROINTESTINAL Hx Gastritis: Yes - GENITOURINARY/GYNECOLOGICAL Hx Genitourinary Disorders: No - PSYCHIATRIC Hx Substance Use: No - SURGICAL HISTORY Hx Appendectomy: Yes (right 2nd and 3rd toes partially amputated ,and Big toe) - ANESTHESIA Hx Anesthesia: Yes Hx Anesthesia Reactions: No Hx Malignant Hyperthermia: No Meds Allergies/Adverse Reactions: Allergies Allergy/AdvReac Type Severity Reaction Status Date / Time No Known Allergies Allergy Verified 11/20/18 18:40 - Medications Medications: Current Medications Enoxaparin Sodium (Lovenox) 40 mg SC DAILY [facility] Last Admin: 11/22/18 10:04 Dose: Not Given Sodium Chloride (Sodium Chloride 0.9%) 1,000 mls @ 100 mls/hr IV .Q10H [facility] Last Admin: 11/22/18 13:59 Dose: 100 mls/hr Pantoprazole Sodium 80 mg/ (Sodium Chloride) 100 mls @ 10 mls/hr IVPB .Q10H [facility] Last Admin: 11/22/18 11:02 Dose: 10 mls/hr Insulin Glargine (Lantus) 10 unit SC Q12 [facility] Last Admin: 11/22/18 10:03 Dose: 10 units Insulin Human Regular (Novolin R) 0 unit SC ACHS [facility]; Protocol Last Admin: 11/22/18 17:08 Dose: 1 units Insulin Human Regular (Novolin R) 4 unit SC TIDPC [facility] Last Admin: 11/22/18 17:08 Dose: 4 units Morphine Sulfate (Morphine) 2 mg IVP Q4 PRN PRN Reason: pain Last Admin: 11/22/18 18:59 Dose: 2 mg Ondansetron HCl (Zofran Inj) 4 mg IVP Q6H PRN PRN Reason: Nausea/Vomiting Last Admin: 11/22/18 19:15 Dose: 4 mg Rosuvastatin Calcium (Crestor) 2.5 mg PO HS [facility] Last Admin: 11/21/18 21:33 Dose: 2.5 mg Results - Vital Signs Recent Vital Signs: Last Vital Signs Temp 98.3 F 11/22/18 15:00 Pulse 69 11/22/18 15:00 Resp 20 11/22/18 15:00 BP 137/71 11/22/18 15:00 Pulse Ox 98 11/22/18 15:00 - Labs Result Diagrams: 11/20/18 19:20 11/22/18 07:52 Labs: Laboratory Results - last 24 hr 11/21/18 11/21/18 11/21/18 21:13 21:15 21:50 Sodium Potassium Chloride Carbon Dioxide Anion Gap BUN Creatinine Est GFR ( Amer) Est GFR (Non-Af Amer) POC Glucose (mg/dL) 32 L* 32 L* 94 Random Glucose Calcium Magnesium 11/22/18 11/22/18 11/22/18 06:34 07:52 11:12 Sodium 135 Potassium 3.5 L Chloride 98 Carbon Dioxide 30 Anion Gap 11 BUN 7 L Creatinine 1.0 Est GFR ( Amer) > 60 Est GFR (Non-Af Amer) > 60 POC Glucose (mg/dL) 143 H 336 H Random Glucose 137 H D Calcium 8.1 L Magnesium 2.2 11/22/18 16:43 Sodium Potassium Chloride Carbon Dioxide Anion Gap BUN Creatinine Est GFR ( Amer) Est GFR (Non-Af Amer) POC Glucose (mg/dL) 179 H Random Glucose Calcium Magnesium Assessment & Plan - Assessment and Plan (Free Text) Assessment: 58 M admitted for 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
[2018-11-22] MEDS: Rosuvastatin Calcium 2.5 mg Tab PO SCH (21:28)
--- NOTE | 2018-11-22 22:01 | CON ---
DATE: 11/22/2018 CHIEF COMPLAINT/REASON FOR CONSULTATION: The patient is referred by Dr. Vaughan for evaluation. The patient with history of recurrent hyponatremia, persistent nausea and vomiting, and has psychogenic polydipsia and anxiety. HISTORY OF PRESENT ILLNESS: This is a case of a 58-year-old male who lives with his family. The patient was admitted here for hyponatremia and nausea and vomiting and history of gastroparesis. The patient was just recently admitted. I saw him in consult. The patient is referred for comanagement of his anxiety and his persistent nausea and vomiting. The patient reports that he has not been drinking too much fluid, although in the past, he has been drinking excessive amounts of fluid because he feels thirsty and then the patient will vomit. REVIEW OF MEDS: The patient is on Reglan 10 mg IV a.c. and at bedtime. The patient is also on Thorazine 25 mg IM every 8 hours p.r.n. The patient also is on morphine 2 mg IV every 4 hours p.r.n. PAST PSYCHIATRIC HISTORY: He has history of anxiety, history of mood disorder. ALLERGIES: NO KNOWN ALLERGIES. MEDICAL PROBLEMS: He has history of persistent hyponatremia, diabetes, history of intractable vomiting, abdominal pain, nausea and vomiting, history of gastritis. PSYCHOSOCIAL HISTORY: The patient lives with his family. PHYSICAL EXAMINATION: VITAL SIGNS: Temperature is 98.3, pulse 73, blood pressure 122/70, respirations 18, oxygen saturation is 98%. LABORATORY DATA: Review of his labs, on admission his sodium was 124. The patient has bouts of hypoglycemia. His sugar is still very unstable. His sugar went as low as 32. His last glucose is 137. The patient's creatinine is 1. His GFR is greater than 60. LIST OF CURRENT MEDICATIONS: The patient is on Crestor, Lantus, morphine, insulin, pantoprazole, Thorazine as well as Reglan. REVIEW OF SYSTEMS: The patient is alert and oriented x3, seen in his room. The patient states that he has been drinking too much. His last sodium level now is 135. The patient is still complaining of intractable nausea and vomiting. SKIN: No diaphoresis. HEENT: No headache or dizziness. NECK: Supple. RESPIRATORY: No dyspnea. CARDIOVASCULAR: No chest pain. GASTROINTESTINAL: Has persistent nausea and vomiting and the patient is also complaining of off and on polydipsia. EXTREMITIES: Moving extremities. No tremors. MUSCULOSKELETAL: Feels weak. NEUROLOGIC: Alert and oriented x3. GENITOURINARY: Has history of polyuria. MENTAL STATUS EXAMINATION: Very tall male, looks stated age of 66 and weighs 168 pounds. Alert and oriented x3, anxious, somatic. Affect is reactive. Speech is spontaneous. Thought process, coherent. Throat content, no overt psychosis. The patient is preoccupied of his GI complaint. Attention and memory seemed to be limited. Insight and judgement limited. Impulse control is fair at this time. IMPRESSION: History of mood disorder secondary to medical problems, uncontrolled diabetes. Persistent nausea and vomiting. History of gastroparesis, anxiety disorder. PLAN AND RECOMMENDATION: The patient is seen, meds reviewed, continue present management. I do suggest if the patient could be taken off the standing Reglan as IV Reglan, makes the patient high when given to the patient. I just suggest if the patient could be given Zofran instead and also low-dose Thorazine. The patient also may have Ativan p.r.n. He is complaining of anxiety for now. I will monitor his blood sugar level as well as his sodium level. The patient is advised to limit his fluid intake. The patient also was asking if he would go for his gastric pacemaker for his gastroparesis. Hermelindo Vickers MD [facility]
[2018-11-23] MEDS: Sodium Chloride 0.9% 1,000 ML IV SCH ×5 (04:08→21:54)
--- NOTE | 2018-11-23 04:09 | PN ---
DATE: 11/22/2018 SUBJECTIVE: The patient tolerated diet well last night, and this morning until now, he started having nausea, vomiting, generalized weakness, tiredness, and abdominal pain, and he is coughing too. He is off Reglan. PHYSICAL EXAMINATION: VITAL SIGNS: Blood pressure 137/71, pulse 69, respiratory rate 20, and temperature 98.3. LUNGS: Clear. CARDIOVASCULAR SYSTEM: S1 and S2. Regular. ABDOMEN: Soft and nontender. Bowel sounds are positive. ASSESSMENT: 1. Diabetic gastroparesis, rule out gastritis, rule out gastroenteritis, rule out peptic ulcer disease. 2. Dehydration, hyponatremia. 3. Hypertension, rule out psychogenic polydipsia. PLAN: Continue IV fluid. Zofran. Monitor the patient. Giovanni Vaughan MD
[2018-11-23] MEDS: Pantoprazole 80 MG in Sodium Chloride 0.9% 100 ML IVPB SCH ×2 (08:09→17:00)
[2018-11-23] MEDS: LIPASE/PROTEASE/AMYLASE 4,200 U ECC PO SCH ×3 (08:10→16:58)
[2018-11-23] MEDS: (Novolin R) Insulin Human Regular 100 units/ml vial SC SCH ×7 (08:30→21:30)
[2018-11-23] MEDS: Enoxaparin 40 mg Syringe SC SCH (10:12)
[2018-11-23] MEDS: (Lantus) Insulin Glargine, Recombinant SC SCH ×2 (10:12→21:49)
[2018-11-23 11:44] LABS: BASO % 0.4 % (0.0-2.0); EOS # 0.1 K/uL (0.0-0.7); EOS % 1.2 % (0.0-4.0); LYMPH # 1.5 K/uL (1.0-4.3); LYMPH % 26.1 % (20.0-40.0); MEAN CORPUSCULAR HEMOGLOBIN 28.2 pg (27.0-31.0); MEAN CORPUSCULAR HGB CONC 33.5 g/dL (33.0-37.0); MEAN PLATELET VOLUME 8.2 fL (7.2-11.7); MONO # 0.5 K/uL (0.0-0.8); MONO % 8.6 % (0.0-10.0); NEUT # 3.6 K/uL (1.8-7.0); NEUT % 63.7 % (50.0-75.0); NRBC % 0.1 % (0.0-2.0); RBC 4.59 Mil/uL (4.40-5.90); RED CELL DISTRIBUTION WIDTH 14.9 % (11.5-14.5)
[2018-11-23 11:51] LABS: MEAN CELL VOLUME 84.4 fL (80.0-94.0); WHITE BLOOD COUNT 5.7 K/uL (4.8-10.8)
[2018-11-23 12:11] LABS: BLOOD UREA NITROGEN 11 mg/dL (9-20); CALCIUM 8.1 mg/dl (8.6-10.4); GFR NON-AFRICAN AMERICAN > 60
--- NOTE | 2018-11-23 16:35 | PN ---
DATE: 11/23/2018 LOCATION 570, bed A. SUBJECTIVE: This is a 58-year-old male seen and examined in rounds with intermittent period of dyspepsia, hiccup, occasional vomiting and abdominal pain with postprandial abdominal distention. No chest pain, palpitation or significant shortness of breath. The entire chart is reviewed including but not limited to the most recent lab and radiology study results, current and the previous medication list and today's lab results showed normal CBC, but sodium is still low 123 with blood glucose level at 392, calcium 8.1. No reported active GI bleeding. PHYSICAL EXAMINATION: GENERAL: A 58-year-old male awake, alert, oriented. VITAL SIGNS: Afebrile with pulse of 86, respiratory rate 20-22, blood pressure of 152/84. HEENT: Showed dry oral mucoid membrane. Nonicteric sclerae. LUNGS: Few scattered crepitation. Decreased air entry at bases. HEART: Positive S1 and S2. ABDOMEN: Soft with mild generalized tenderness with slight distention. No mass or organomegaly. No rebound tenderness or guarding. EXTREMITIES: Without significant clubbing, cyanosis or edema. NEUROLOGIC: No reported new neurological deficits, sensory or motor. No reported new focal deficits. IMPRESSION: 1. Poorly controlled diabetes mellitus with severe diabetic gastroparesis. 2. Electrolyte imbalance with mainly hyponatremia secondary to, most likely hyperglycemia, which would be a major factor for the patient's recurrent episode of nausea and vomiting again. 3. Re exacerbation of peptic ulcer disease. 4. Multiple past medical history including hyperlipidemia, hypertension with status post appendectomy as well as partial amputation of the right big toe by history due to peripheral vascular disease and diabetic ulceration. SUGGESTIONS: 1. Continue current management. 2. Again the patient will need potential pacemaker stimulator insertion in the gastric wall if it is available in [facility], otherwise to be transferred to [place], [place]. 3. Continue Reglan 4. Add erythromycin 500 IV piggyback every 6 hours. 5. Further recommendation to follow. Chad Palafox MD
[2018-11-23] MEDS: Rosuvastatin Calcium 2.5 mg Tab PO SCH (21:49)
--- NOTE | 2018-11-24 01:21 | PN ---
DATE: 11/23/2018 SUBJECTIVE: The patient is firm about getting his Reglan. He refuses not to quit Reglan. He feels he gets more hiccup, nausea, vomiting without Reglan, while Psychiatry believes he gets more thirst with Reglan but the patient insists upon getting Reglan. His sodium is down again. He is feeling weak. He is having nausea, vomiting, bloating, and hiccups. He is afebrile. No shortness of breath. No cough. PHYSICAL EXAMINATION: VITAL SIGNS: Blood pressure 157/80, pulse 84, respiratory rate 20, temperature 98.1. LUNGS: Clear. No rales, no rhonchi. CARDIOVASCULAR SYSTEM: S1, S2. Regular. ABDOMEN: Soft, nontender. Bowel sounds are positive. ASSESSMENT: 1. Hyponatremia, rule out psychogenic polydipsia. 2. Poorly controlled diabetes due to noncompliance. 3. Hypertension. 4. Anxiety. PLAN: I had extensive discussion with the patient in terms of compliance with diet, medication, and cutting down on water intake. He agreed, understood. In the meantime, we will continue Reglan and monitor the patient until tomorrow. Giovanni Vaughan MD
[2018-11-24] MEDS: Pantoprazole 80 MG in Sodium Chloride 0.9% 100 ML IVPB SCH ×3 (03:22→23:42)
--- NOTE | 2018-11-24 06:12 | CP.PCM.PN ---
Subjective - Date & Time of Evaluation Date of Evaluation: 11/24/18 Time of Evaluation: 06:00 - Subjective Subjective: dict Objective - Vital Signs/Intake and Output Vital Signs (last 24 hours): Temp Pulse Resp BP Pulse Ox 97.4 F L 77 20 150/83 94 L 11/23/18 23:19 11/23/18 23:19 11/23/18 23:19 11/23/18 23:19 11/23/18 23:19 Intake and Output: 11/23/18 11/24/18 18:59 06:59 Intake Total 1480 Balance 1480 - Medications Medications: Current Medications Enoxaparin Sodium (Lovenox) 40 mg SC DAILY ON LICENSE OF [facility] Last Admin: 11/23/18 10:12 Dose: Not Given Pantoprazole Sodium 80 mg/ (Sodium Chloride) 100 mls @ 10 mls/hr IVPB .Q10H ON LICENSE OF [facility] Last Admin: 11/24/18 03:22 Dose: 10 mls/hr Insulin Glargine (Lantus) 10 unit SC Q12 ON LICENSE OF [facility] Last Admin: 11/23/18 21:49 Dose: Not Given Insulin Human Regular (Novolin R) 0 unit SC ACHS ON LICENSE OF [facility]; Protocol Last Admin: 11/23/18 21:30 Dose: Not Given Insulin Human Regular (Novolin R) 4 unit SC TIDPC ON LICENSE OF [facility] Last Admin: 11/23/18 17:00 Dose: 4 units Metoclopramide HCl (Reglan) 10 mg IVP ACHS ON LICENSE OF [facility] Last Admin: 11/23/18 21:50 Dose: 10 mg Morphine Sulfate (Morphine) 2 mg IVP Q4 PRN PRN Reason: pain Last Admin: 11/23/18 21:50 Dose: 2 mg Ondansetron HCl (Zofran Inj) 4 mg IVP Q6H PRN PRN Reason: Nausea/Vomiting Last Admin: 11/24/18 01:43 Dose: 4 mg Rosuvastatin Calcium (Crestor) 2.5 mg PO HS ON LICENSE OF [facility] Last Admin: 11/23/18 21:49 Dose: 2.5 mg - Labs Labs: 11/23/18 11:28 11/23/18 11:28 PT 11.2 SECONDS (9.7-12.2) 11/20/18 21: INR 1.0 11/20/18 21:17 APTT 35.0 SECONDS (21-34) H 11/20/18 21:17
--- NOTE | 2018-11-24 06:15 | PN ---
DATE: 11/23/2018 SUBJECTIVE: The patient is seen. The patient noted to be very anxious and upset today. His Reglan was early discontinued, but the patient is demanding to be put back stating that it is helping him. The patient continues to drink excessive amount of fluid and can have persistent nausea and vomiting. The patient was given Zofran, but he states that is not helping him. The patient seems to want IV Reglan stating that it is helping him but the patient continues to vomit and feeling nauseous. He was also on low-dose Thorazine in the past. REVIEW OF SYSTEMS: The patient is alert. verbal, anxious, somatic, demanding his Reglan. PHYSICAL EXAMINATION: VITAL SIGNS: Temperature 97.3, pulse 88, blood pressure 187/86, respirations 20, oxygen saturation is 95%. SKIN: No diaphoresis. HEENT: No headache, no dizziness. NECK: Supple. RESPIRATORY: No dyspnea. CARDIOVASCULAR: No chest pain. GASTROINTESTINAL: The patient continues to have nausea and vomiting. EXTREMITIES: Moving extremities, ambulatory. NEUROLOGIC: Alert, oriented x3. GENITOURINARY: No dysuria. MENTAL STATUS EXAMINATION: Elderly male who looked stated age, very anxious, somatic, irritable. Speech is spontaneous. Affect is reactive. The patient is demanding his IV Reglan stating that it is helping him, but the patient continues to have nausea and vomiting and drinks excessive amounts of fluid despite medical advice not to drink. Mood as stated, irritable. Thought process is coherent. Thought content, the patient is demanding his Reglan. No overt psychosis. No suicidal or homicidal ideation. Attention and memory seems to be limited. Insight and judgment limited. Impulse control is fair. LABORATORY DATA: His blood sugar today seems to be still high, it is 290. IMPRESSION: History of mood disorder, anxiety, history of uncontrolled diabetes, intractable nausea and vomiting, consider psychogenic polydipsia. PLAN AND RECOMMENDATIONS: The patient is seen. Meds reviewed. Continue present management. The patient advised to limit drinking excessive amounts of fluid to correct his hyponatremia. The patient seem today demanding to get his Reglan IV makes them high, and I do advise that the patient could be taken off IV Reglan, but be given IV Zofran instead. Hermelindo Vickers MD [facility] # [id number] ALYSHA
--- NOTE | 2018-11-24 06:38 | CP.PCM.PN ---
Subjective - Date & Time of Evaluation Date of Evaluation: 11/23/18 Time of Evaluation: 19:45 - Subjective Subjective: Patient denies chest pain and dyspnea Review Of Systems Constitutional: Negative for: Fever, Chills Cardiovascular: Negative for: Chest Pain, Palpitations Respiratory: Negative for: Cough, Shortness of Breath Gastrointestinal: Positive for: Nausea, Vomiting, Abdominal Pain. Negative for: Diarrhea Genitourinary: Negative for: Dysuria, Hematuria Skin: Negative for: Rash Neurological: Negative for: Seizures, Headache, Dizziness Physical Exam - Physical Exam Appears: Well, Non-toxic, In Acute Distress (in moderate discomfort, actively vomiting, (+) coffee ground emesis) Skin: Normal Color, Warm, Dry, No Pale Eye(s): bilateral: Normal Inspection Oral Mucosa: Moist Cardiovascular: Rhythm Regular (tachycardic ), Murmur (3/6 holosystolic ) Respiratory: Normal Breath Sounds, No Rales, No Rhonchi, No Wheezing Gastrointestinal/Abdominal: Bowel Sounds, Soft, Tenderness ((+) epigastric TTP, (-) Collier's, (-) McBurney's) Back: No CVA Tenderness Neurological/Psych: Oriented x3 Objective - Vital Signs/Intake and Output Vital Signs (last 24 hours): Temp Pulse Resp BP Pulse Ox 97.4 F L 77 20 150/83 94 L 11/23/18 23:19 11/23/18 23:19 11/23/18 23:19 11/23/18 23:19 11/23/18 23:19 Intake and Output: 11/23/18 11/24/18 18:59 06:59 Intake Total 1480 Balance 1480 - Medications Medications: Current Medications Enoxaparin Sodium (Lovenox) 40 mg SC DAILY [facility] Last Admin: 11/23/18 10:12 Dose: Not Given Pantoprazole Sodium 80 mg/ (Sodium Chloride) 100 mls @ 10 mls/hr IVPB .Q10H [facility] Last Admin: 11/24/18 03:22 Dose: 10 mls/hr Insulin Glargine (Lantus) 10 unit SC Q12 [facility] Last Admin: 11/23/18 21:49 Dose: Not Given Insulin Human Regular (Novolin R) 0 unit SC ACHS [facility]; Protocol Last Admin: 11/23/18 21:30 Dose: Not Given Insulin Human Regular (Novolin R) 4 unit SC TIDPC [facility] Last Admin: 11/23/18 17:00 Dose: 4 units Metoclopramide HCl (Reglan) 10 mg IVP ACHS [facility] Last Admin: 11/23/18 21:50 Dose: 10 mg Morphine Sulfate (Morphine) 2 mg IVP Q4 PRN PRN Reason: pain Last Admin: 11/23/18 21:50 Dose: 2 mg Ondansetron HCl (Zofran Inj) 4 mg IVP Q6H PRN PRN Reason: Nausea/Vomiting Last Admin: 11/24/18 01:43 Dose: 4 mg Rosuvastatin Calcium (Crestor) 2.5 mg PO HS [facility] Last Admin: 11/23/18 21:49 Dose: 2.5 mg - Labs Labs: 11/23/18 11:28 11/23/18 11:28 PT 11.2 SECONDS (9.7-12.2) 11/20/18 21:17 INR 1.0 11/20/18 21:17 APTT 35.0 SECONDS (21-34) H 11/20/18 21:17 Assessment and Plan - Assessment and Plan (Free Text) Assessment: 58 M admitted for 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
[2018-11-24] MEDS: LIPASE/PROTEASE/AMYLASE 4,200 U ECC PO SCH ×3 (07:37→16:00)
[2018-11-24] MEDS: (Novolin R) Insulin Human Regular 100 units/ml vial SC SCH ×7 (08:30→21:27)
--- NOTE | 2018-11-24 08:33 | PN ---
DATE: 11/24/2018 LOCATION: 570, bed A. SUBJECTIVE: This is a 58-year-old male, seen and examined in rounds without significant clinical changes or reported active bleeding with intermittent period of but less than before hiccup with occasional nausea and vomiting. It has to be reported that the patient had an early episode of nausea and vomiting including his own medications. Most recent lab results showed blood glucose level elevated to 319 today with low sodium and low calcium. Rest of the lab results still pending. PHYSICAL EXAMINATION: GENERAL: A 58-year-old male. VITAL SIGNS: Afebrile with respiratory rate 20 to 22, blood pressure 146/80. HEENT: Showed pale, dry oral mucous membrane. Nonicteric sclerae. LUNGS: Few scattered crepitation. Decreased air entry at bases. HEART: Positive S1 and S2. ABDOMEN: Soft with mild generalized tenderness. No mass or organomegaly. No rebound tenderness or guarding. EXTREMITIES: Without significant edema, clubbing or cyanosis. NEUROLOGIC: No reported new neurological deficit, sensory or motor. IMPRESSION: 1. Exacerbation of peptic ulcer disease. 2. Poorly controlled diabetes mellitus with diabetic gastroparesis. 3. Electrolyte imbalance including hyponatremia, hypocalcemia which also can contribute to the patient's episodes of nausea and vomiting as well as hiccup. 4. Hypertension, by history. 5. Reported episodes of acute pancreatitis previously on top of chronic pancreatitis. 6. Hyperlipidemia, by history. 7. Status post appendectomy. SUGGESTIONS: 1. Continue current management. 2. Antireflux measures. 3. Surgical reevaluation. 4. Further recommendation to follow. Chad Palafox MD
[2018-11-24] MEDS: Sodium Chloride 0.9% 1,000 ML IV SCH ×2 (09:30→18:29)
[2018-11-24] MEDS: (Lantus) Insulin Glargine, Recombinant SC SCH ×2 (09:34→21:25)
[2018-11-24] MEDS: Enoxaparin 40 mg Syringe SC SCH (09:39)
--- NOTE | 2018-11-24 12:05 | PN ---
DATE: 11/24/2018 SUBJECTIVE: The patient is afebrile. No shortness of breath. No chest pain. I spoke to him about avoiding too much water drinking. is on Reglan. He has nausea, vomiting and he coughs. No fever, no chills. PHYSICAL EXAMINATION: VITAL SIGNS: Afebrile. Blood pressure 150/83, pulse 77, respiratory rate 20, temperature 97.4. LUNGS: Clear. CARDIOVASCULAR: S1, S2. Regular. ABDOMEN: Soft. ASSESSMENT: 1. Persistent nausea, vomiting. 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 2. Hyponatremia due to psychogenic polydipsia. 3. Poorly-controlled diabetes due to noncompliance. 4. Hypertension. PLAN: Monitor the patient, current medication. Giovanni Vaughan MD
[2018-11-24 12:09] LABS: BLOOD UREA NITROGEN 13 mg/dL (9-20); CALCIUM 8.5 mg/dl (8.6-10.4); GFR NON-AFRICAN AMERICAN > 60
[2018-11-24] MEDS: Rosuvastatin Calcium 2.5 mg Tab PO SCH ×2 (22:09→22:33)
[2018-11-25] MEDS: Sodium Chloride 0.9% 1,000 ML IV SCH (04:45)
[2018-11-25] MEDS: LIPASE/PROTEASE/AMYLASE 4,200 U ECC PO SCH ×3 (08:17→17:29)
[2018-11-25] MEDS: (Novolin R) Insulin Human Regular 100 units/ml vial SC SCH ×7 (08:17→21:42)
[2018-11-25] MEDS: Enoxaparin 40 mg Syringe SC SCH (10:16)
[2018-11-25] MEDS: (Lantus) Insulin Glargine, Recombinant SC SCH ×2 (10:16→21:42)
[2018-11-25] MEDS: Pantoprazole 80 MG in Sodium Chloride 0.9% 100 ML IVPB SCH ×2 (12:09→21:42)
--- NOTE | 2018-11-25 13:32 | PN ---
DATE: 11/25/2018 LOCATION: 570, bed A. SUBJECTIVE: This is a 58-year-old male seen and examined in rounds without significant clinical changes or reported active bleeding with intermittent period again of hiccup, but less nausea and vomiting. The entire chart is reviewed including but not limited to the most recent lab and radiology study results, current and the previous medication list. Today's blood glucose level is 130. Rest of the lab is still pending. The patient denied any actual chest pain, palpitation, or significant shortness of breath. No reported chills or fever. PHYSICAL EXAMINATION: GENERAL: A 58-year-old male, awake, alert, oriented. VITAL SIGNS: Afebrile with pulse of 76, respiratory rate 20 to 22, blood pressure 132/74. HEENT: Pale, dry mucous membrane. Nonicteric sclerae. LUNGS: Few scattered crepitation. Decreased air entry at bases. HEART: Positive S1 and S2. ABDOMEN: Soft with mild generalized tenderness. No mass or organomegaly. No rebound tenderness or guarding. EXTREMITIES: Without significant clubbing, cyanosis, or edema. NEUROLOGIC: No reported new neurological deficits, sensory or motor. IMPRESSION: 1. Re-exacerbation of peptic ulcer disease. 2. Poorly controlled diabetes mellitus with diabetic gastroparesis. 3. Recurrent episodes of pancreatitis on top of chronic pancreatitis. 4. Electrolyte imbalance with hyponatremia. 5. Known history of hypertension, hyperlipidemia, status post appendectomy. SUGGESTIONS: 1. Continue current management. 2. Adjust oral intake and correct any underlying electrolyte imbalance. 3. Again, surgical re-evaluation is suggested. Chad Palafox MD
[2018-11-25 15:17] LABS: BLOOD UREA NITROGEN 9 mg/dL (9-20); CALCIUM 8.3 mg/dl (8.6-10.4); GFR NON-AFRICAN AMERICAN > 60
--- NOTE | 2018-11-25 18:08 | PN ---
DATE: 11/25/2018 SUBJECTIVE: The patient is seen. The patient still continues to drink a lot of water and also asking for Reglan and his sodium still continues to be low and his blood sugar continues to fluctuate. The patient is expressing desire to have the gastric pacemaker implant, but told him that he needs to be more medically stable. The patient advised to limit his fluid intake as he drinks a lot of fluid and also to be more compliant with his diet. His blood sugars are still very elevated. REVIEW OF SYSTEMS: The patient is alert, oriented x3, seen in his room. The patient states that his nausea is improving. PHYSICAL EXAMINATION: VITAL SIGNS: Temperature 98.4, pulse 72, blood pressure 128/76, respirations 20, oxygen saturation 97%. SKIN: No diaphoresis. HEENT: No headache, no dizziness. NECK: Supple. RESPIRATORY: No dyspnea. CARDIOVASCULAR: No chest pain. GASTROINTESTINAL: The patient continues to have nausea and vomiting, but staff reports the patient continues to sneak and take excessive amounts of fluids. The patient is complaining he is thirsty. EXTREMITIES: Moving extremities. MUSCULOSKELETAL: Feels weak. NEUROLOGIC: Alert and oriented x3. GENITOURINARY: No dysuria. MENTAL STATUS EXAMINATION: Very tall male who looked stated age, alert and oriented x3. Mood is anxious, somatic. Affect is reactive. Speech is spontaneous. Thought process coherent. Thought content, the patient wants to have his gastric pacemaker implanted, but the patient continues to drink excessive amounts of fluids and has constant episodes of vomiting. The patient wants to keep his Reglan IV, which was initially stopped, but the patient insisted to be put back. The patient had psychosis. No suicidal or homicidal ideation. Attention and memory seems to be fair. Insight and judgment limited. Impulse control is fair at this time. IMPRESSION: History of mood disorder, anxiety disorder and possible psychogenic polydipsia, history of uncontrolled diabetes, and persistent hyponatremia. PLAN AND RECOMMENDATIONS: The patient is seen. Meds reviewed. Continue present management. Suggest the patient to limit his fluid intake as well to be more compliant with his diet. Hermelindo Vickers MD [facility] # [id number]
[2018-11-25] MEDS: Rosuvastatin Calcium 2.5 mg Tab PO SCH (21:42)
[2018-11-26] MEDS: Sodium Chloride 0.9% 1,000 ML IV SCH ×2 (01:07→10:50)
[2018-11-26] MEDS: Pantoprazole 80 MG in Sodium Chloride 0.9% 100 ML IVPB SCH (06:06)
[2018-11-26 07:51] VITALS: BP 155/90; PULSE 63; TEMP 98.1
--- NOTE | 2018-11-26 07:55 | PN ---
DATE: 11/26/2018 LOCATION: 570, bed A. SUBJECTIVE: This is a 58-year-old male, seen and examined in rounds early today without any significant clinical changes, appears to be awake, alert, oriented with intermittent period of slight shortness of breath. No reported active bleeding but periods of mild hiccup, much less than before with nausea. The entire chart is reviewed including the most recent lab results and today's blood glucose level reported to be 469, rest of the lab results still pending. PHYSICAL EXAMINATION: GENERAL: A 58-year-old male, awake, alert, oriented. VITAL SIGNS: Afebrile with pulse of 70, respiratory rate 20 to 22, blood pressure of 124/72. HEENT: Showed pale, dry oral mucous membrane. Nonicteric sclerae. LUNGS: Few scattered crepitation. Decreased air entry at bases. HEART: Positive S1 and S2. ABDOMEN: Soft with mild generalized tenderness. No mass or organomegaly. No rebound tenderness or guarding. EXTREMITIES: Without significant clubbing, cyanosis or edema. NEUROLOGIC: No reported new neurological deficits, sensory or motor. No reported new focal deficits. IMPRESSION: 1. Re-exacerbation of peptic ulcer disease. 2. Poorly controlled diabetes mellitus with diabetic gastroparesis. 3. Hyponatremia, most likely secondary to above, which could be a major factor for the patient's nausea and vomiting. 4. Reported history of mood disorder as per psychiatric evaluation. 5. Reported history of hyperlipidemia, status post appendectomy, hypertension and episodes of pancreatitis before. SUGGESTIONS: 1. Continue current management. 2. Please be advised that the patient will need surgical reevaluation for potential gastric pacemaker stimulator. Discussed with the Biliary Surgical Team at length before. 3. May start erythromycin 500 mg IV piggyback every 6 hours if the patient's symptoms persist. 4. Further recommendation to follow. Chad Palafox MD
[2018-11-26] MEDS: (Novolin R) Insulin Human Regular 100 units/ml vial SC SCH ×4 (08:32→12:34)
[2018-11-26] MEDS: LIPASE/PROTEASE/AMYLASE 4,200 U ECC PO SCH ×2 (08:32→12:34)
--- NOTE | 2018-11-26 08:44 | CP.PCM.PN ---
Subjective - Date & Time of Evaluation Date of Evaluation: 11/25/18 Time of Evaluation: 19:35 - Subjective Subjective: Patient denies chest pain and dyspnea BS was high htis morning Review Of Systems Constitutional: Negative for: Fever, Chills Cardiovascular: Negative for: Chest Pain, Palpitations Respiratory: Negative for: Cough, Shortness of Breath Gastrointestinal: Positive for: Nausea, Vomiting, Abdominal Pain. Negative for: Diarrhea Genitourinary: Negative for: Dysuria, Hematuria Skin: Negative for: Rash Neurological: Negative for: Seizures, Headache, Dizziness Physical Exam - Physical Exam Appears: Well, Non-toxic, In Acute Distress (in moderate discomfort, actively vomiting, (+) coffee ground emesis) Skin: Normal Color, Warm, Dry, No Pale Eye(s): bilateral: Normal Inspection Oral Mucosa: Moist Cardiovascular: Rhythm Regular (tachycardic ), Murmur (3/6 holosystolic ) Respiratory: Normal Breath Sounds, No Rales, No Rhonchi, No Wheezing Gastrointestinal/Abdominal: Bowel Sounds, Soft, Tenderness ((+) epigastric TTP, (-) Collier's, (-) McBurney's) Back: No CVA Tenderness Neurological/Psych: Oriented x3 Assessment and Plan - Assessment and Plan (Free Text) Assessment: 58 M admitted for 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 HTN Gasrtritis Hyperglycemia Will follow Objective - Vital Signs/Intake and Output Vital Signs (last 24 hours): Temp Pulse Resp BP Pulse Ox 98.1 F 63 20 155/90 H 100 11/26/18 07:00 11/26/18 07:00 11/26/18 07:00 11/26/18 07:00 11/26/18 07:00 - Medications Medications: Current Medications Enoxaparin Sodium (Lovenox) 40 mg SC DAILY [facility] Last Admin: 11/25/18 10:16 Dose: Not Given Pantoprazole Sodium 80 mg/ (Sodium Chloride) 100 mls @ 10 mls/hr IVPB .Q10H [facility] Last Admin: 11/26/18 06:06 Dose: 10 mls/hr Sodium Chloride (Sodium Chloride 0.9%) 1,000 mls @ 100 mls/hr IV .Q10H [facility] Last Admin: 11/26/18 01:07 Dose: 100 mls/hr Insulin Glargine (Lantus) 10 unit SC Q12 [facility] Last Admin: 11/25/18 21:42 Dose: 10 units Insulin Human Regular (Novolin R) 0 unit SC ACHS [facility]; Protocol Last Admin: 11/26/18 08:32 Dose: 6 units Insulin Human Regular (Novolin R) 4 unit SC TIDPC [facility] Last Admin: 11/26/18 08:32 Dose: 4 units Metoclopramide HCl (Reglan) 10 mg IVP ACHS [facility] Last Admin: 11/26/18 08:32 Dose: 10 mg Morphine Sulfate (Morphine) 2 mg IVP Q4 PRN PRN Reason: pain Last Admin: 11/26/18 06:15 Dose: 2 mg Ondansetron HCl (Zofran Inj) 4 mg IVP Q6H PRN PRN Reason: Nausea/Vomiting Last Admin: 11/26/18 06:14 Dose: 4 mg Rosuvastatin Calcium (Crestor) 2.5 mg PO HS [facility] Last Admin: 11/25/18 21:42 Dose: 2.5 mg - Labs Labs: 11/23/18 11:28 11/25/18 14:54 PT 11.2 SECONDS (9.7-12.2) 11/20/18 21:17 INR 1.0 11/20/18 21:17 APTT 35.0 SECONDS (21-34) H 11/20/18 21:17
[2018-11-26] MEDS: Enoxaparin 40 mg Syringe SC SCH (10:20)
[2018-11-26] MEDS: (Lantus) Insulin Glargine, Recombinant SC SCH (12:35)
--- NOTE | 2018-11-26 15:02 | CP.PCM.PN ---
Subjective - Date & Time of Evaluation Date of Evaluation: 11/26/18 Time of Evaluation: 15:01 - Subjective Subjective: PATIENT SEEN AND EXAMINED AT THE BEDSIDE Objective - Vital Signs/Intake and Output Vital Signs (last 24 hours): Temp Pulse Resp BP Pulse Ox 98.1 F 63 20 155/90 H 100 11/26/18 07:00 11/26/18 07:00 11/26/18 07:00 11/26/18 07:00 11/26/18 07:00 - Medications Medications: Current Medications Enoxaparin Sodium (Lovenox) 40 mg SC DAILY [facility] Last Admin: 11/26/18 10:20 Dose: Not Given Pantoprazole Sodium 80 mg/ (Sodium Chloride) 100 mls @ 10 mls/hr IVPB .Q10H [facility] Last Admin: 11/26/18 06:06 Dose: 10 mls/hr Sodium Chloride (Sodium Chloride 0.9%) 1,000 mls @ 100 mls/hr IV .Q10H [facility] Last Admin: 11/26/18 01:07 Dose: 100 mls/hr Insulin Glargine (Lantus) 10 unit SC Q12 [facility] Last Admin: 11/26/18 12:35 Dose: 10 units Insulin Human Regular (Novolin R) 0 unit SC ACHS [facility]; Protocol Last Admin: 11/26/18 12:34 Dose: 6 units Insulin Human Regular (Novolin R) 4 unit SC TIDPC [facility] Last Admin: 11/26/18 12:34 Dose: 4 units Metoclopramide HCl (Reglan) 10 mg IVP ACHS [facility] Last Admin: 11/26/18 12:35 Dose: 10 mg Morphine Sulfate (Morphine) 2 mg IVP Q4 PRN PRN Reason: pain Last Admin: 11/26/18 06:15 Dose: 2 mg Ondansetron HCl (Zofran Inj) 4 mg IVP Q6H PRN PRN Reason: Nausea/Vomiting Last Admin: 11/26/18 06:14 Dose: 4 mg Rosuvastatin Calcium (Crestor) 2.5 mg PO HS [facility] Last Admin: 11/25/18 21:42 Dose: 2.5 mg - Labs Labs: 11/23/18 11:28 11/25/18 14:54 PT 11.2 SECONDS (9.7-12.2) 11/20/18 21:17 INR 1.0 11/20/18 21:17 APTT 35.0 SECONDS (21-34) H 11/20/18 21:17 Assessment and Plan - Assessment and Plan (Free Text) Assessment: F/U WITH DR LOFTON IN HIS OFFICE -----CALL FOR APPOINTMENT F/U WITH BILARY SURGICAL TEAM OUT PATIENT INSTRUCTED CONTINUE HOME MEDICATION ACTIVITY TOLERATED CALL DR LOFTON OR GO TO THE EMERGENCY ROOM IF SYMPTOM RETURN OR WORSENING
--- NOTE | 2018-11-26 20:46 | PN ---
DATE: 11/26/2018 SUBJECTIVE: The patient is seen. The patient's sodium level has improved. It is now 132. The patient states he is drinking enough fluid. The patient is afraid if he will have a seizure from a very low sodium level, however, his glucose is still very elevated, still having readings above 400 and the last reading was 275. The patient has been drinking a lot of itzel ralph. PHYSICAL EXAMINATION: VITAL SIGNS: Temperature 98.1, pulse 63, blood pressure 165/90, respirations 20, oxygen saturation 100%. The patient is still asking for Reglan, stating that is the only one helping, but the patient seems to be more receptive of not drinking too much fluid. SKIN: No diaphoresis. HEENT: No headache, no dizziness. NECK: Supple. RESPIRATORY: No dyspnea. CARDIOVASCULAR: No chest pain. GASTROINTESTINAL: Nausea and vomiting have improved as well as he is not thirsty as much before. EXTREMITIES: Moving extremities. MUSCULOSKELETAL: Feels weak. NEUROLOGIC: Alert and oriented x3. GENITOURINARY: No urinary problems. No dysuria. MENTAL STATUS EXAMINATION: Tall male who looked stated age, alert and oriented x3. Less anxious and somatic. Affect is reactive. Speech is spontaneous. Thought process coherent. Thought content, the patient still interested to have a gastric pacemaker implanted, but I told him that he needs to be more medically stable, especially keeping his sodium level as well as his blood sugar level under control. As stated, no psychosis. No suicidal or homicidal ideation. Attention and memory seem to be fair. Insight and judgment fair. Impulse control is fair. IMPRESSION: History of mood disorder, anxiety, psychogenic polydipsia, uncontrolled diabetes, and persistent hyponatremia. PLAN AND RECOMMENDATIONS: Continue treatment plan as outlined. Continue present management. The patient was advised to limit the fluid intake. We will monitor his sodium level. Hermelindo Vickers MD
--- NOTE | 2018-11-26 21:39 | CP.PCM.DIS ---
Provider - Provider Date of Admission: 11/20/18 19:53 Attending physician: Giovanni Lofton MD Consults: 11/20/18 19:54 Physician Consult Routine Comment: NAUSEA/VOMITING, COFFEE GROUND Consulting Provider: Chad Bliss Consulting Physician: Chad Bliss Reason for Consult: GI 11/20/18 20:50 Physician Consult Stat Comment: hyponatremia, coffee ground emesis Consulting Provider: Otoniel Hawkins Consulting Physician: Otoniel Hawkins Reason for Consult: icu Additional Comments: spoken with 11/20/18 22:16 Endocrinology Consult Routine Comment: Consulting Provider: Stanley Han Consulting Physician: Stanley Han Reason for Consult: dm Gastroenterology Consult Routine Comment: Consulting Provider: Chad Bliss Consulting Physician: Chad Bliss Reason for Consult: d.gastroparesis 11/20/18 22:17 Cardiology Consult Routine Comment: Consulting Provider: Jarvis Hirsch Consulting Physician: Jarvis Hirsch Reason for Consult: htn 11/21/18 23:39 Psychiatry Consult Routine Comment: Consulting Provider: Hermelindo Guevara Consulting Physician: Hermelindo Guevara Reason for Consult: psychogenic polydipsia Time Spent in preparation of Discharge (in minutes): 30 Hospital Course - Lab Results Lab Results: Most Recent Lab Values WBC 5.7 K/uL (4.8-10.8) D 11/23/18 11:28 RBC 4.59 Mil/uL (4.40-5.90) 11/23/18 11:28 Hgb 13.0 g/dL (12.0-18.0) 11/23/18 11:28 Hct 38.7 % (35.0-51.0) 11/23/18 11:28 MCV 84.4 fL (80.0-94.0) D 11/23/18 11:28 MCH 28.2 pg (27.0-31.0) 11/23/18 11:28 MCHC 33.5 g/dL (33.0-37.0) 11/23/18 11:28 RDW 14.9 % (11.5-14.5) H 11/23/18 11:28 Plt Count 306 K/uL (130-400) D 11/23/18 11:28 MPV 8.2 fL (7.2-11.7) 11/23/18 11:28 Neut % (Auto) 63.7 % (50.0-75.0) 11/23/18 11:28 Lymph % (Auto) 26.1 % (20.0-40.0) 11/23/18 11:28 [place] % (Auto) 8.6 % (0.0-10.0) 11/23/18 11:28 Eos % (Auto) 1.2 % (0.0-4.0) 11/23/18 11:28 Baso % (Auto) 0.4 % (0.0-2.0) 11/23/18 11:28 Neut # (Auto) 3.6 K/uL (1.8-7.0) 11/23/18 11:28 Lymph # (Auto) 1.5 K/uL (1.0-4.3) 11/23/18 11:28 [place] # (Auto) 0.5 K/uL (0.0-0.8) 11/23/18 11:28 Eos # (Auto) 0.1 K/uL (0.0-0.7) 11/23/18 11:28 Baso # (Auto) 0.0 K/uL (0.0-0.2) 11/23/18 11:28 PT 11.2 SECONDS (9.7-12.2) 11/20/18 21:17 INR 1.0 11/20/18 21:17 APTT 35.0 SECONDS (21-34) H 11/20/18 21:17 Sodium 132 mmol/L (132-148) 11/25/18 14:54 Potassium 4.0 mmol/L (3.6-5.2) 11/25/18 14:54 Chloride 96 mmol/L (98-107) L 11/25/18 14:54 Carbon Dioxide 27 mmol/L (22-30) 11/25/18 14:54 Anion Gap 14 (10-20) 11/25/18 14:54 BUN 9 mg/dL (9-20) 11/25/18 14:54 Creatinine 1.0 mg/dL (0.8-1.5) 11/25/18 14:54 Est GFR ( Amer) > 60 11/25/18 14:54 Est GFR (Non-Af Amer) > 60 11/25/18 14:54 POC Glucose (mg/dL) 275 mg/dL (65-110) H 11/26/18 14:41 Random Glucose 193 mg/dL (75-110) H D 11/25/18 14:54 Calcium 8.3 mg/dl (8.6-10.4) L 11/25/18 14:54 Magnesium 2.2 mg/dL (1.6-2.3) 11/22/18 07:52 Total Bilirubin 3.4 mg/dL (0.2-1.3) H 11/20/18 19:20 AST 54 U/L (17-59) 11/20/18 19:20 ALT 31 U/L (21-72) 11/20/18 19:20 Alkaline Phosphatase 127 U/L (38-126) H D 11/20/18 19:20 Total Protein 8.4 g/dL (6.3-8.3) H 11/20/18 19:20 Albumin 4.9 g/dL (3.5-5.0) 11/20/18 19:20 Globulin 3.5 gm/dL (2.2-3.9) 11/20/18 19:20 Albumin/Globulin Ratio 1.4 (1.0-2.1) 11/20/18 19:20 Lipase < 10 U/L (23-300) L 11/20/18 19:20 TSH 3rd Generation 4.13 mIU/L (0.46-4.68) 11/23/18 11:28 Cortisol AM Sample 17.7 ug/dL (4.46-22.7) 11/23/18 11:28 Urine Color Yellow (YELLOW) 11/20/18 23:32 Urine Clarity Clear (Clear) 11/20/18 23:32 Urine pH 6.0 (5.0-8.0) 11/20/18 23:32 Ur Specific Hailey 1.008 (1.003-1.030) 11/20/18 23:32 Urine Protein Negative mg/dL (NEGATIVE) 11/20/18 23:32 Urine Glucose (UA) 3+ mg/dL (Normal) H 11/20/18 23:32 Urine Ketones 1+ mg/dL (NEGATIVE) H 11/20/18 23:32 Urine Blood 1+ (NEGATIVE) H 11/20/18 23:32 Urine Nitrate Negative (NEGATIVE) 11/20/18 23:32 Urine Bilirubin Negative (NEGATIVE) 11/20/18 23:32 Urine Urobilinogen Normal mg/dL (0.2-1.0) 11/20/18 23:32 Ur Leukocyte Esterase Neg Lauren/uL (Negative) 11/20/18 23:32 Urine WBC (Auto) 2 /hpf (0-5) 11/20/18 23:32 Urine RBC (Auto) 1 /hpf (0-3) 11/20/18 23:32 Ur Squamous Epith Cells 2 /hpf (0-5) 11/20/18 23:32 Blood Type O POSITIVE 11/20/18 21:17 Antibody Screen Negative 11/20/18 21:17 Discharge Plan - Follow Up Plan Condition: GOOD Disposition: HOME/ ROUTINE Instructions: Diabetes and Infections, Gastroparesis (Delayed Gastric Emptying) (DC), Diabetes and Diet Additional Instructions: F/U WITH DR LOFTON IN HIS OFFICE -----CALL FOR APPOINTMENT F/U WITH BILARY SURGICAL TEAM OUT PATIENT INSTRUCTED CONTINUE HOME MEDICATION ACTIVITY TOLERATED CALL DR LOFTON OR GO TO THE EMERGENCY ROOM IF SYMPTOM RETURN OR WORSENING Referrals: Jarvis Hirsch MD [Staff Provider] - Otoniel Hawkins MD [Staff Provider] - Hermelindo Guevara MD [Staff Provider] - Chad Bliss [Staff Provider] - Stanley Han MD [Staff Provider] - Giovanni Lofton MD [Staff Provider] -
--- NOTE | 2018-11-26 21:39 | CP.PCM.PN ---
Subjective - Date & Time of Evaluation Date of Evaluation: 11/25/18 Time of Evaluation: 08:20 - Subjective Subjective: dict Objective - Vital Signs/Intake and Output Vital Signs (last 24 hours): Temp Pulse Resp BP Pulse Ox 98.1 F 63 20 155/90 H 100 11/26/18 07:00 11/26/18 07:00 11/26/18 07:00 11/26/18 07:00 11/26/18 07:00 Intake and Output: 11/26/18 11/27/18 18:59 06:59 Intake Total 1580 Balance 1580 - Labs Labs: 11/23/18 11:28 11/25/18 14:54 PT 11.2 SECONDS (9.7-12.2) 11/20/18 21:17 INR 1.0 11/20/18 21:17 APTT 35.0 SECONDS (21-34) H 11/20/18 21:17
--- NOTE | 2018-11-27 18:35 | PN ---
DATE: 11/25/2018 SUBJECTIVE: The patient is noncompliant. His blood sugars have been fluctuating. He has generalized weakness. He has nausea, vomiting, hiccups. He has p.o. water intake. He has abdominal pain. He denies any dysuria or hematuria. He has weakness, dizziness. PHYSICAL EXAMINATION: VITAL SIGNS: Blood pressure 127/77, pulse 73, respiratory rate 20, and temperature 98.3. LUNGS: Clear. No rales. No rhonchi. CVS: S1 and S2 regular. ABDOMEN: Soft and nontender. Bowel sounds are positive. ASSESSMENT: 1. Hyponatremia, rule out psychogenic polydipsia, could be pseudohyponatremia and hyperglycemia. 2. Poorly-controlled diabetes due to noncompliance. 3. Hypertension. 4. Dehydration. PLAN: Continue IV fluid, Reglan, Zofran, Protonix. Psych followup. Once the patient's sodium is up, the patient is for discharge. Giovanni Vaughan MD
--- NOTE | 2018-11-28 01:18 | CON ---
DATE: 11/20/[address] Palafox to Dr. Giovanni Vaughan. I was called for GI consultation by the admitting MD. The patient is seen and fully examined for GI consultation on 11/20/2018, a short handwritten consultation sheet left in the chart at that time. The entire chart is reviewed including, but not limited to the most recent lab and radiology study results, current and the previous medication list, current and the previous medical events, allergy to medication list as well as all the available current and the previous medical records. Case discussed with the admitting medical team before and immediately after my GI consultation on 11/20/2018. HISTORY OF PRESENT ILLNESS: This is a 58-year-old male, very well known case for me from previous admission, was re-admitted to the hospital through the emergency room due to recurrent complaint of midepigastric pain, nausea, vomiting with intermittent period of hiccups and unable to eat secondary to above. No reported chest pain, palpitation, significant shortness of breath or evidence of active GI bleeding. Denied chills or fever. PAST MEDICAL HISTORY: Including, but not limited to: 1. Poorly controlled diabetes mellitus. 2. Peptic ulcer disease. 3. Diabetic gastroparesis. 4. Hyperlipidemia, hypertension, gastric ulcer, status post appendectomy, peripheral vascular disease, right second and third toes partial amputation as well as the big toe. CURRENT MEDICATIONS: Post-admission medication lists were reviewed. FAMILY HISTORY: Unknown. SOCIAL HISTORY: Positive for alcohol intake and cigarette smoking. ALLERGY TO MEDICATION: UNKNOWN. LABORATORY DATA: After being admitted to the hospital, initial blood workup showed leukocytosis of 11.5 with normal hemoglobin and hematocrit, but thrombocytosis of 442 with PT elevated to 35. Sodium 115 with increased blood glucose level to 317, total bilirubin 3.5, and alkaline phosphatase 127 elevated. PHYSICAL EXAMINATION: GENERAL: A 58-year-old male, awake, alert, and oriented with a complaint of abdominal pain mainly in the midepigastric area. VITAL SIGNS: Afebrile with pulse of 112, respiratory rate 20 to 22, and blood pressure 140/76. HEENT: Pale, dry oral mucous membrane mildly. Bilateral icteric sclerae. LUNGS: Scattered crepitation bilaterally. Positive breathing sounds. HEART: Positive S1 and S2 with increased rate. ABDOMEN: Soft with mild generalized tenderness. No mass or organomegaly. No rebound tenderness or guarding. Midepigastric tenderness and midabdominal line tenderness noticed. Bowel sounds are present. EXTREMITIES: Without significant clubbing, cyanosis, or significant edematous changes. NEUROLOGIC: No reported new neurological deficits, motor or sensory. No reported new focal deficits. IMPRESSION: 1. Poorly controlled diabetes mellitus with re-exacerbation of peptic ulcer disease as well as diabetic gastroparesis. 2. Rule out early stage of recurrent acute pancreatitis on top of chronic pancreatitis. 3. Electrolyte imbalance, most likely inducing in part his recurrent nausea and vomiting episodes. 4. Multiple past medical history including hypertension, gastric ulcer, and hyperlipidemia. SUGGESTIONS: 1. Continue current management. 2. Endocrinology consultation. 3. Reglan IV. If no response, then erythromycin 500 mg IV piggyback every 6 hours to start. 4. Surgical reevaluation for potential gastric pacemaker stimulator insertion, if possible. 5. Proton pump inhibitors IV. 6. Repeat cancer markers and sectional abdominal and pelvic CAT scan if the patient's symptoms persist, otherwise medical treatment to continue. We will follow up closely with you. Thank you for letting me participate in your patient's case management. Further evaluation and recommendation to follow. Chad Palafox MD
--- NOTE | 2018-11-28 02:35 | DS ---
DISCHARGE DIAGNOSES: 1. Severe hyponatremia, dehydration, rule out psychogenic polydipsia. 2. Hypertension. 3. Diabetes. 4. Dehydration. HISTORY OF PRESENT ILLNESS: This is a 58-year-old male with history of diabetes, hypertension, who came in because of low sodium, weakness, polyuria, polydipsia, polyphagia, generalized weakness, tiredness. His sodium was found to be low, he was started on IV hydration, fluid restriction, Accu-Chek, sliding scale insulin regimen, Endocrinology evaluation and Psychiatry evaluation later on because of suspicion of psychogenic polydipsia. The patient is feeling better now. His blood sugars have gone down. He is for discharge. His condition upon discharge is stable. PHYSICAL EXAMINATION: VITAL SIGNS: Blood pressure was 155/90, pulse 63, respiratory rate 20, temperature 98.1. LUNGS: Clear. CARDIOVASCULAR SYSTEM: S1, S2, regular. ABDOMEN: Soft, nontender. Bowel sounds are positive. DISCHARGE DIAGNOSIS: Hyperglycemia. PLAN: Discharge the patient. Giovanni Vaughan MD
[2018-11-29 08:45] VITALS: O2SAT 97
== END 2018-11-26 15:45 | disposition home or self-care (01) | DRG 74 ==
LOC: C.ER 18:23 → C.9E 19:53 → C.5S 23:01
PROVIDERS: ADMIT Internal Medicine; ATTEND Internal Medicine
DX: E11.43 Type 2 diabetes mellitus with diabetic autonomic (poly)neuropathy (principal); Z68.1 Body mass index [BMI] 19.9 or less, adult; E87.1 Hypo-osmolality and hyponatremia; N17.9 Acute kidney failure, unspecified; F50.89 Other specified eating disorder; R63.1 Polydipsia; F45.8 Other somatoform disorders; E03.9 Hypothyroidism, unspecified; E11.649 Type 2 diabetes mellitus with hypoglycemia without coma; E11.65 Type 2 diabetes mellitus with hyperglycemia; E78.5 Hyperlipidemia, unspecified; E86.0 Dehydration; E87.6 Hypokalemia; F17.210 Nicotine dependence, cigarettes, uncomplicated; F41.9 Anxiety disorder, unspecified; I10 Essential (primary) hypertension; K29.70 Gastritis, unspecified, without bleeding; K31.84 Gastroparesis; Z79.4 Long term (current) use of insulin; Z87.11 Personal history of peptic ulcer disease; Z91.19 Patient's noncompliance with other medical treatment and regimen

== ENCOUNTER 2018-12-04 07:57 | Observation (INO) | payer MEDICARE ==
[2018-12-04 07:58] VITALS: BMI 23.1
[2018-12-04] MEDS ORDERED: Sodium Chloride 0.9% 1,000 ML IV ONE (08:45)
--- NOTE | 2018-12-04 08:56 | C.PDOC ---
History Of Present Illness 58 year old male presents to ED with complaint of abdominal pain and multiple episodes of vomiting for the past 3 days. Patient has a PMHx of diabetes and gastroparesis. Patient was discharged from [facility] ED on 11/26/18 for the same c omplaint. He denies fever, chills diarrhea, chest pain, and SOB. Time Seen by Provider: 12/04/18 08:28 Chief Complaint (Nursing): GI Problem History Per: Patient History/Exam Limitations: no limitations Onset/Duration Of Symptoms: Days (3) Current Symptoms Are (Timing): Still Present Location Of Pain/Discomfort: Diffuse Radiation Of Pain To:: None Quality Of Discomfort: "Pain" Associated Symptoms: Vomiting. denies: Fever, Chills, Diarrhea Past Medical History Reviewed: Historical Data, Nursing Documentation, Vital Signs Vital Signs: Last Vital Signs Temp 98.4 F 12/04/18 08:02 Pulse 104 H 12/04/18 08:02 Resp 20 12/04/18 08:02 BP 166/86 H 12/04/18 08:02 Pulse Ox 100 12/04/18 08:02 Primary Care Provider: Giovanni Vaughan - Medical History PMH: Diabetes, Gastritis, Gastrointestinal Ulcer, HTN, Hypercholesterolemia Denies: Chronic Kidney Disease Surgical History: Appendectomy (right 2nd and 3rd toes partially amputated ,and Big toe) - [facility] Procedures DETACHMENT AT RIGHT 1ST TOE, LOW, OPEN APPROACH (08/20/17) EXCISION OF STOMACH, ENDO, DIAGN (08/17/18) Family History: States: Unknown Family Hx - Social History Hx Alcohol Use: Yes (weekends) Hx Substance Use: No - Immunization History Hx Tetanus Toxoid Vaccination: No Hx Influenza Vaccination: No Hx Pneumococcal Vaccination: No Review Of Systems Constitutional: Negative for: Fever, Chills Cardiovascular: Negative for: Chest Pain Respiratory: Negative for: Shortness of Breath Gastrointestinal: Positive for: Vomiting, Abdominal Pain. Negative for: Diarrhea Physical Exam - Physical Exam Appears: Non-toxic, No Acute Distress Skin: Normal Color, Warm, Dry Head: Atraumatic, Normacephalic Neck: Normal ROM, Supple Chest: Symmetrical, No Deformity, No Tenderness Cardiovascular: Rhythm Regular, Other (tachycardic) Respiratory: No Accessory Muscle Use, No Rales, No Rhonchi, No Wheezing Gastrointestinal/Abdominal: Bowel Sounds (normoactive), Soft, No Tenderness, No Guarding, No Rebound, Other (old surgical scar to the right lower quadrant) Extremity: No Pedal Edema, Capillary Refill (<2 seconds) Extremity: Bilateral: Atraumatic, Normal Color And Temperature, Normal ROM Pulses: Left Dorsalis Pedis: Normal, Right Dorsalis Pedis: Normal Neurological/Psych: Oriented x3, Normal Speech, Normal Cognition ED Course And Treatment - Laboratory Results Result Diagrams: 12/04/18 09:28 12/04/18 09:28 ECG: Interpreted By Me, Viewed By Me ECG Rhythm: Sinus Tachycardia ECG Interpretation: Abnormal Interpretation Of ECG: Non-specific T-wave abnormality Rate From EC O2 Sat by Pulse Oximetry: 100 (in RA) Pulse Ox Interpretation: Normal Medical Decision Making Medical Decision Making: Impression: 58 year old male presents to ED with complaint of abdominal pain and multiple episodes of vomiting for the past 3 days. Initial Plan: EKG UA CMP drug screen CBC Pepcid IVP Reglan IVPB IV fluids discussed with Dr Vaughan, will admo6t to his service. Disposition Discussed With Dr.: Giovanni Vaughan - Disposition Disposition: HOSPITALIZED Disposition Time: 10:55 Condition: STABLE - Clinical Impression Clinical Impression: Gastroparesis, Nausea & vomiting, Diverticulitis, Hyponatremia - PA / RATE ANALYST / Resident Statement MD/DO has reviewed & agrees with the documentation as recorded. (Imelda Davis) - Scribe Statement The provider has reviewed the documentation as recorded by the Scribe (Imelda Davis) All medical record entries made by the Scribe were at my direction and personally dictated by me. I have reviewed the chart and agree that the record accurately reflects my personal performance of the history, physical exam, medical decision making, and the department course for this patient. I have also personally directed, reviewed, and agree with the discharge instructions and disposition.
[2018-12-04] MEDS ORDERED: Sodium Chloride 0.9% 1,000 ML ONE (09:16)
[2018-12-04 09:47] LABS: BASO % 0.4 % (0.0-2.0); EOS % 0.4 % (0.0-4.0); HEMOGLOBIN 13.4 g/dL (12.0-18.0); LYMPH # 1.6 K/uL (1.0-4.3); LYMPH % 19.5 % (20.0-40.0); MEAN CORPUSCULAR HEMOGLOBIN 28.5 pg (27.0-31.0); MEAN CORPUSCULAR HGB CONC 34.7 g/dL (33.0-37.0); MEAN PLATELET VOLUME 7.5 fL (7.2-11.7); MONO # 0.4 K/uL (0.0-0.8); MONO % 4.8 % (0.0-10.0); NEUT # 6.3 K/uL (1.8-7.0); NEUT % 74.9 % (50.0-75.0); RBC 4.71 Mil/uL (4.40-5.90); RED CELL DISTRIBUTION WIDTH 15.4 % (11.5-14.5); WHITE BLOOD COUNT 8.4 K/uL (4.8-10.8)
[2018-12-04 09:52] LABS: MEAN CELL VOLUME 82.4 fL (80.0-94.0)
[2018-12-04 10:03] LABS: URINE BILIRUBIN NEGATIVE (NEGATIVE); URINE BLOOD NEGATIVE (NEGATIVE); URINE CLARITY Clear (Clear); URINE COLOR Yellow (YELLOW); URINE GLUCOSE (UA) 1+ mg/dL (Normal); URINE LEUKOCYTE ESTERASE NEG Leu/uL (Negative); URINE PROTEIN NEGATIVE (NEGATIVE); URINE UROBILINOGEN NORMAL mg/dL (0.2-1.0)
[2018-12-04 10:14] LABS: ALB/GLOB RATIO 1.5 (1.0-2.1); ALBUMIN 4.3 g/dL (3.5-5.0); ALT/SGPT 20 U/L (21-72); AST/SGOT 36 U/L (17-59); BLOOD UREA NITROGEN 14 mg/dL (9-20); CALCIUM 8.7 mg/dl (8.6-10.4); GFR NON-AFRICAN AMERICAN > 60; LIPASE < 10 U/L (23-300)
[2018-12-04] MEDS ORDERED: Alum-Mag Hydrox-Simethicone Susp (30 mL) ONE (10:14)
[2018-12-04 10:17] LABS: BARBITURATES, UR NEGATIVE (NEGATIVE); BENZODIAZEPINES, UR NEGATIVE (NEGATIVE); OPIATES, UR NEGATIVE (NEGATIVE); PHENCYCLIDINE, UR NEGATIVE (NEGATIVE)
[2018-12-04] MEDS ORDERED: Aluminum Hydroxide/Magnesium Hydroxide Susp (30 mL) PO STA (10:24)
[2018-12-04 11:35] VITALS: RESP 20
[2018-12-04] MEDS: (Novolin R) Insulin Human Regular 100 units/ml vial SC SCH ×3 (12:30→21:35)
[2018-12-04] MEDS: LIPASE/PROTEASE/AMYLASE 4,200 U ECC PO SCH ×2 (12:30→17:30)
[2018-12-04] MEDS: Sodium Chloride 0.9% 1,000 ML IV SCH ×2 (12:46→21:35)
[2018-12-04] MEDS ORDERED: (Novolog Mix 70/30) Insulin Aspart/Insulin Aspar 100 units/ml SC SCH (16:30)
--- NOTE | 2018-12-04 18:24 | CP.PCM.CON ---
History of Present Illness - History of Present Illness History of Present Illness: uncontrolled IDDM Past Patient History - Infectious Disease Hx of Infectious Diseases: None - Tetanus Immunizations Tetanus Immunization: Unknown - Past Medical History & Family History Past Medical History?: Yes - Past Social History Smoking Status: Unknown If Ever Smoked - CARDIAC Hx Hypercholesterolemia: Yes Hx Hypertension: Yes - PULMONARY Hx Respiratory Disorders: No - NEUROLOGICAL Hx Neurological Disorder: No - HEENT Hx HEENT Problems: No - RENAL Hx Chronic Kidney Disease: No - ENDOCRINE/METABOLIC Hx Endocrine Disorders: Yes Hx Diabetes Mellitus Type 2: Yes - HEMATOLOGICAL/ONCOLOGICAL Hx Blood Disorders: No - INTEGUMENTARY Hx Dermatological Problems: Yes Other/Comment: HX: GANGRENE RIGHT FOOT TOE(GREAT) surgery. 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) surgery - MUSCULOSKELETAL/RHEUMATOLOGICAL Hx Musculoskeletal Disorders: No Hx Falls: Yes - GASTROINTESTINAL Hx Gastritis: Yes - GENITOURINARY/GYNECOLOGICAL Hx Genitourinary Disorders: No - PSYCHIATRIC Hx Substance Use: No - SURGICAL HISTORY Hx Appendectomy: Yes (right 2nd and 3rd toes partially amputated ,and Big toe) - ANESTHESIA Hx Anesthesia: Yes Hx Anesthesia Reactions: No Hx Malignant Hyperthermia: No Meds Allergies/Adverse Reactions: Allergies Allergy/AdvReac Type Severity Reaction Status Date / Time No Known Allergies Allergy Verified 12/04/18 08:10 - Medications Medications: Current Medications Chlorpromazine (Thorazine) 25 mg IM Q8 PRN PRN Reason: Hiccups Last Admin: 12/04/18 12:53 Dose: 25 mg Enoxaparin Sodium (Lovenox) 40 mg SC DAILY [facility] Sodium Chloride (Sodium Chloride 0.9%) 1,000 mls @ 100 mls/hr IV .Q10H [facility] Last Admin: 12/04/18 12:46 Dose: 100 mls/hr Insulin Aspart (Novolog Mix 70/30 (70/30 Units/Ml)) 30 units SC BIDAC [facility] Last Admin: 12/04/18 17:31 Dose: 30 u Insulin Human Regular (Novolin R) 0 unit SC ACHS [facility]; Protocol Last Admin: 12/04/18 17:31 Dose: 3 units Metformin HCl (Glucophage) 500 mg PO BIDCC [facility] Last Admin: 12/04/18 17:33 Dose: 500 mg Ondansetron HCl (Zofran Inj) 4 mg IVP Q6 PRN PRN Reason: Nausea/Vomiting Last Admin: 12/04/18 12:46 Dose: 4 mg Pneumococcal Polyvalent Vaccine (Pneumovax 23 Vaccine) 0.5 ml IM .ONCE ONE Stop: 12/06/18 10:01 Rosuvastatin Calcium (Crestor) 2.5 mg PO HS [facility]EVYN Results - Vital Signs Recent Vital Signs: Last Vital Signs Temp 98.4 F 12/04/18 16:36 Pulse 79 12/04/18 16:36 Resp 20 12/04/18 16:36 BP 114/68 12/04/18 16:36 Pulse Ox 100 12/04/18 18:10 - Labs Result Diagrams: 12/04/18 09:28 12/04/18 09:28 Labs: Laboratory Results - last 24 hr 12/04/18 12/04/18 12/04/18 08:08 09:28 09:28 WBC 8.4 RBC 4.71 Hgb 13.4 Hct 38.8 MCV 82.4 D MCH 28.5 MCHC 34.7 RDW 15.4 H Plt Count 387 MPV 7.5 Neut % (Auto) 74.9 Lymph % (Auto) 19.5 L [place] % (Auto) 4.8 Eos % (Auto) 0.4 Baso % (Auto) 0.4 Neut # (Auto) 6.3 Lymph # (Auto) 1.6 [place] # (Auto) 0.4 Eos # (Auto) 0.0 Baso # (Auto) 0.0 Sodium 121 L Potassium 3.7 Chloride 80 L Carbon Dioxide 26 Anion Gap 18 BUN 14 Creatinine 1.1 Est GFR ( Amer) > 60 Est GFR (Non-Af Amer) > 60 POC Glucose (mg/dL) 280 H Random Glucose 251 H D Calcium 8.7 Total Bilirubin 2.0 H AST 36 ALT 20 L D Alkaline Phosphatase 93 Total Protein 7.2 Albumin 4.3 Globulin 2.9 Albumin/Globulin Ratio 1.5 Lipase < 10 L Urine Color Urine Clarity Urine pH Ur Specific [place] Urine Protein Urine Glucose (UA) Urine Ketones Urine Blood Urine Nitrate Urine Bilirubin Urine Urobilinogen Ur Leukocyte Esterase Urine WBC (Auto) Urine RBC (Auto) Urine Opiates Screen Urine Methadone Screen Ur Barbiturates Screen Ur Phencyclidine Scrn Ur Amphetamines Screen U Benzodiazepines Scrn U Oth Cocaine Metabols U Cannabinoids Screen 12/04/18 12/04/1812/04/19 09:35 09:35 11:21 WBC RBC Hgb Hct MCV MCH MCHC RDW Plt Count MPV Neut % (Auto) Lymph % (Auto) [place] % (Auto) Eos % (Auto) Baso % (Auto) Neut # (Auto) Lymph # (Auto) [place] # (Auto) Eos # (Auto) Baso # (Auto) Sodium Potassium Chloride Carbon Dioxide Anion Gap BUN Creatinine Est GFR ( Amer) Est GFR (Non-Af Amer) POC Glucose (mg/dL) 252 H Random Glucose Calcium Total Bilirubin AST ALT Alkaline Phosphatase Total Protein Albumin Globulin Albumin/Globulin Ratio Lipase Urine Color Yellow Urine Clarity Clear Urine pH 6.0 Ur Specific [place] 1.006 Urine Protein Negative Urine Glucose (UA) 1+ H Urine Ketones 1+ H Urine Blood Negative Urine Nitrate Negative Urine Bilirubin Negative Urine Urobilinogen Normal Ur Leukocyte Esterase Neg Urine WBC (Auto) 1 Urine RBC (Auto) < 1 Urine Opiates Screen Negative Urine Methadone Screen Negative Ur Barbiturates Screen Negative Ur Phencyclidine Scrn Negative Ur Amphetamines Screen Negative U Benzodiazepines Scrn Negative U Oth Cocaine Metabols Positive H U Cannabinoids Screen Negative 12/04/18 16:03 WBC RBC Hgb Hct MCV MCH MCHC RDW Plt Count MPV Neut % (Auto) Lymph % (Auto) [place] % (Auto) Eos % (Auto) Baso % (Auto) Neut # (Auto) Lymph # (Auto) [place] # (Auto) Eos # (Auto) Baso # (Auto) Sodium Potassium Chloride Carbon Dioxide Anion Gap BUN Creatinine Est GFR ( Amer) Est GFR (Non-Af Amer) POC Glucose (mg/dL) 211 H Random Glucose Calcium Total Bilirubin AST ALT Alkaline Phosphatase Total Protein Albumin Globulin Albumin/Globulin Ratio Lipase Urine Color Urine Clarity Urine pH Ur Specific [place] Urine Protein Urine Glucose (UA) Urine Ketones Urine Blood Urine Nitrate Urine Bilirubin Urine Urobilinogen Ur Leukocyte Esterase Urine WBC (Auto) Urine RBC (Auto) Urine Opiates Screen Urine Methadone Screen Ur Barbiturates Screen Ur Phencyclidine Scrn Ur Amphetamines Screen U Benzodiazepines Scrn U Oth Cocaine Metabols U Cannabinoids Screen Assessment & Plan (1) Diabetes mellitus with neuropathy Assessment and Plan: Endocrine consult reason for consult: uncontrolled diabetes Source: patient and chart review Nikolas Espinosa is 58 y/o known to endocrine admitted for nausea & vomiting /abdominal pain As per pt. has DM for more than 20 years (+ ) neuropathy , (-) retinopathy , (-) nephropathy (-) CAD (+ ) PVD s/p right toe amputation , partial amputations of 2 other right toes blood glucose log :200 's on liquid diet denies h/o thyroid disorder Allergy NKDA Past medical history:HTN , hyperlipidemia Past surgical history: appendectomy , right toe amputation Psychiatry history: denies Social history: ex- smoking , occasional ETOH use , denies illicit drug use Family history: father with dm ROS: Constitutional: denies fever, tiredness/weakness. HEENT: denies earache, change in voice .Respiratory: denies cough, sob . CVS :no chest pain, no palpitations . Abdomen: no abdominal pain, (+) nausea (+) vomiting, no change bowel movement. [employer] : denies light-headedness, dizziness. Extremities: no edema, no tremors. Skin: no itching, no rash Physical exam Well-developed AAO x3 , ,NAD VSS HEENT: norm cephalic, atraumatic, no lid lag , no exophthalmos NECK: supple, no palpable lymphadenopathy THYROID: no palpable thyromegaly, not tender CHEST: fair air entry, bilateral, CVS: S1,S2 ABDOMEN: bowel sound present, benign, , no wide purple striae , no bruises EXTREMITIES: no edema, clubbing or cyanosis, no palpable hand tremors , right foot with dressing Skin: acanthosis nigricans -lab: urine (+) cocaine , gfr>60 10/2018 a1c 9.3 , cmp wnl , urine (+) opiate , wbc 10 , TSH 5.4 was 9 , FT 3 2.8 , FT4 1.8 08/2018 tsh 9.3 , a1c 9.3 Assessment: uncontrolled IDDM with neuropathy /gastroparesis PVD s/p right toe amputation hypothyroidism nausea & vomiting plan : stop Metformin stop novolog 70/30 start lantus 10 units sq bid q 12 h change regular insulin to low dose coverage tid & hs start regular 4 units sq tid with meals if eat more than 60% of the meal monitor thyroid functions Thank you for allowing me to participate in the care of the patient, we will fo llow with you. Dr. Han ,Fiby # [phone] office Fridays & Saturdays address: [address] [place] [address] ,phone # [phone] ,FAX [phone] Status: Acute (2) Diabetes mellitus, insulin dependent (IDDM), uncontrolled Status: Acute (3) Gastroparesis Status: Acute (4) Diabetes mellitus with peripheral circulatory disorder Status: Acute - Date & Time Date: 12/04/18 Time: 18:21
[2018-12-04] MEDS: Rosuvastatin Calcium 2.5 mg Tab PO SCH (21:34)
[2018-12-04] MEDS: (Lantus) Insulin Glargine, Recombinant SC SCH (21:34)
[2018-12-05] MEDS ORDERED: Dextrose 50% SYRINGE Inj (50 ml) IV STA (02:22)
[2018-12-05] MEDS ORDERED: Dextrose 50% SYRINGE Inj (50 ml) ONE (02:23)
[2018-12-05] MEDS: Sodium Chloride 0.9% 1,000 ML IV SCH ×4 (06:30→21:12)
[2018-12-05] MEDS: (Novolin R) Insulin Human Regular 100 units/ml vial SC SCH ×8 (08:08→21:38)
[2018-12-05] MEDS: (Lantus) Insulin Glargine, Recombinant SC SCH ×2 (08:15→21:39)
[2018-12-05] MEDS: LIPASE/PROTEASE/AMYLASE 4,200 U ECC PO SCH ×3 (08:19→17:17)
--- NOTE | 2018-12-05 09:37 | US ---
Date of service: 12/05/2018 HISTORY: [email or web address] COMPARISON: 08/19/2018. Abdominal ultrasound. 11/01/2018. CT abdomen and pelvis. TECHNIQUE: Sonographic evaluation of the abdomen. FINDINGS: LIVER: Measures 16.7 cm. Patent portal and hepatic venous systems. Portal venous flow: Hepatopetal. echogenicity of the liver parenchyma. No mass. No intrahepatic bile duct dilatation. GALLBLADDER: Unremarkable. No gallstones. COMMON BILE DUCT: Measures 3.2 mm. No stones. No dilatation. PANCREAS: Unremarkable as visualized. No mass. No ductal dilatation. RIGHT KIDNEY: Measures 4.7 x 13.1cm. Normal echogenicity. No calculus, mass, or hydronephrosis. LEFT KIDNEY: Measures 5.211.7cm. Normal echogenicity. No calculus, mass, or hydronephrosis. SPLEEN: Normal in size and contour. No mass. AORTA: No aneurysmal dilatation. IVC: Unremarkable. OTHER FINDINGS: None. IMPRESSION: No acute or significant findings related to/ accounting for the clinical presentation. Additional benign and/or incidental findings described above. No significant interval change compared to the prior examination(s).
[2018-12-05] MEDS: Enoxaparin 40 mg Syringe SC SCH ×2 (11:03→11:05)
[2018-12-05 11:54] LABS: MEAN CELL VOLUME 82.4 fL (80.0-94.0); MEAN CORPUSCULAR HEMOGLOBIN 28.9 pg (27.0-31.0); MEAN CORPUSCULAR HGB CONC 35.1 g/dL (33.0-37.0); MEAN PLATELET VOLUME 7.6 fL (7.2-11.7); RBC 4.15 Mil/uL (4.40-5.90); RED CELL DISTRIBUTION WIDTH 15.7 % (11.5-14.5); WHITE BLOOD COUNT 10.9 K/uL (4.8-10.8)
[2018-12-05 12:22] LABS: ALB/GLOB RATIO 1.2 (1.0-2.1); ALBUMIN 3.2 g/dL (3.5-5.0); ALT/SGPT 17 U/L (21-72); AMYLASE 82 U/L (30-110); AST/SGOT 23 U/L (17-59); BLOOD UREA NITROGEN 8 mg/dL (9-20); CALCIUM 8.3 mg/dl (8.6-10.4); GFR NON-AFRICAN AMERICAN > 60; LIPASE < 10 U/L (23-300)
--- NOTE | 2018-12-05 14:53 | PN ---
DATE: 12/05/2018 LOCATION: 371, bed A. SUBJECTIVE: This is a 58-year-old male, seen initially for GI consultation on 12/04/2018 as requested by the admitting MD, reexamined again today with no early episode of nausea and vomiting, but mild dyspepsia with postprandial abdominal distension. No chest pain, palpitation or significant shortness of breath. The patient had an episode of hypoglycemia for which a D50 1 amp injection is given with elevated blood glucose level to about 169. The patient also had abdominal ultrasound this morning reported to be without acute significant changes. The entire chart is reviewed including but not limited to the most recent lab and radiology study results, current and previous medication list and today's lab result is still pending; however, the patient have mildly elevated total bilirubin with normal lipase and amylase level and normal CBC. PHYSICAL EXAMINATION: GENERAL: This is a 58-year-old male who appears to be awake, alert, afebrile, oriented. VITAL SIGNS: Pulse 76, respiratory rate 20 to 22, blood pressure 130/74. HEENT: Dry oral mucous membrane. Slightly icteric sclerae bilaterally. HEART: Positive S1 and S2. ABDOMEN: Soft with mild generalized tenderness. No mass or organomegaly. No rebound tenderness or guarding. EXTREMITIES: Without significant edema, clubbing or cyanosis. CENTRAL NERVOUS SYSTEM: No reported new neurological deficits, sensory or motor. IMPRESSION: 1. Peptic ulcer disease, poorly controlled diabetes mellitus, diabetic gastroparesis. 2. Known history of gastric ulcer, hyperlipidemia, hypertension. 3. Peripheral vascular disease with diabetic ulceration and status post right second and third toe partial amputation as well as the big toe amputation. 4. Status post appendectomy. 5. Mild jaundice of insignificant presentation. SUGGESTIONS: 1. Agree with your plan. 2. Continue Reglan IV. 3. If there is further episodes of nausea and vomiting, then erythromycin 500 mg IV piggyback every 6 hours to be started. Again, the patient might need gastric stimulator pacemaker insertion, for which surgical consultation to be considered. 4. Further recommendation to follow. Chad Palafox MD
[2018-12-05] MEDS: Rosuvastatin Calcium 2.5 mg Tab PO SCH (21:39)
--- NOTE | 2018-12-05 23:56 | CP.PCM.HP ---
Present on Admission - Present on Admission Any Indicators Present on Admission: Yes History of Uncontrolled Diabetes: Yes Past Patient History - Infectious Disease Hx of Infectious Diseases: None - Tetanus Immunizations Tetanus Immunization: Unknown - Past Medical History & Family History Past Medical History?: Yes - Past Social History Smoking Status: Unknown If Ever Smoked - CARDIAC Hx Hypercholesterolemia: Yes Hx Hypertension: Yes - PULMONARY Hx Respiratory Disorders: No - NEUROLOGICAL Hx Neurological Disorder: No - HEENT Hx HEENT Problems: No - RENAL Hx Chronic Kidney Disease: No - ENDOCRINE/METABOLIC Hx Endocrine Disorders: Yes Hx Diabetes Mellitus Type 2: Yes - HEMATOLOGICAL/ONCOLOGICAL Hx Blood Disorders: No - INTEGUMENTARY Hx Dermatological Problems: Yes Other/Comment: HX: GANGRENE RIGHT FOOT TOE(GREAT) surgery. 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) surgery - MUSCULOSKELETAL/RHEUMATOLOGICAL Hx Musculoskeletal Disorders: No Hx Falls: Yes - GASTROINTESTINAL Hx Gastritis: Yes - GENITOURINARY/GYNECOLOGICAL Hx Genitourinary Disorders: No - PSYCHIATRIC Hx Substance Use: No - SURGICAL HISTORY Hx Appendectomy: Yes (right 2nd and 3rd toes partially amputated ,and Big toe) - ANESTHESIA Hx Anesthesia: Yes Hx Anesthesia Reactions: No Hx Malignant Hyperthermia: No Meds Allergies/Adverse Reactions: Allergies Allergy/AdvReac Type Severity Reaction Status Date / Time No Known Allergies Allergy Verified 12/04/18 08:10 Results - Vital Signs Recent Vital Signs: Last Vital Signs Temp 98 F 12/05/18 23:12 Pulse 88 12/05/18 23:12 Resp 20 12/05/18 23:12 BP 143/93 H 12/05/18 23:12 Pulse Ox 97 12/05/18 23:12 - Labs Result Diagrams: 12/05/18 11:45 12/05/18 11:45 Labs: Laboratory Results - last 24 hr 12/05/18 12/05/18 12/05/18 02:12 02:14 02:48 WBC RBC Hgb Hct MCV MCH MCHC RDW Plt Count MPV Sodium Potassium Chloride Carbon Dioxide Anion Gap BUN Creatinine Est GFR ( Amer) Est GFR (Non-Af Amer) POC Glucose (mg/dL) 41 L 38 L* 169 H Random Glucose Hemoglobin A1c Calcium Phosphorus Magnesium Total Bilirubin AST ALT Alkaline Phosphatase Total Protein Albumin Globulin Albumin/Globulin Ratio Amylase Lipase 12/05/18 12/05/18 12/05/18 07:23 07:25 11:05 WBC RBC Hgb Hct MCV MCH MCHC RDW Plt Count MPV Sodium Potassium Chloride Carbon Dioxide Anion Gap BUN Creatinine Est GFR ( Amer) Est GFR (Non-Af Amer) POC Glucose (mg/dL) 66 70 213 H Random Glucose Hemoglobin A1c Calcium Phosphorus Magnesium Total Bilirubin AST ALT Alkaline Phosphatase Total Protein Albumin Globulin Albumin/Globulin Ratio Amylase Lipase 12/05/18 12/05/18 12/05/18 11:45 11:45 11:45 WBC 10.9 H RBC 4.15 L Hgb 12.0 Hct 34.2 L MCV 82.4 MCH 28.9 MCHC 35.1 RDW 15.7 H Plt Count 354 MPV 7.6 Sodium 130 L Potassium 3.8 Chloride 94 L Carbon Dioxide 28 Anion Gap 11 BUN 8 L Creatinine 0.9 Est GFR ( Amer) > 60 Est GFR (Non-Af Amer) > 60 POC Glucose (mg/dL) Random Glucose 195 H D Hemoglobin A1c 8.7 H Calcium 8.3 L Phosphorus 2.8 Magnesium 2.1 Total Bilirubin 0.8 AST 23 ALT 17 L Alkaline Phosphatase 74 Total Protein 5.9 L Albumin 3.2 L D Globulin 2.6 Albumin/Globulin Ratio 1.2 Amylase 82 Lipase < 10 L 12/05/18 12/05/18 16:26 21:26 WBC RBC Hgb Hct MCV MCH MCHC RDW Plt Count MPV Sodium Potassium Chloride Carbon Dioxide Anion Gap BUN Creatinine Est GFR ( Amer) Est GFR (Non-Af Amer) POC Glucose (mg/dL) 128 H 364 H Random Glucose Hemoglobin A1c Calcium Phosphorus Magnesium Total Bilirubin AST ALT Alkaline Phosphatase Total Protein Albumin Globulin Albumin/Globulin Ratio Amylase Lipase
[2018-12-06] MEDS: Sodium Chloride 0.9% 1,000 ML IV SCH (03:33)
--- NOTE | 2018-12-06 05:55 | CON ---
DATE: 12/04/2018 LOCATION: 371, bed A. I was called for GI consultation by the admitting MD, Dr. Giovanni Vaughan. The patient is seen and fully examined for GI consultation on 12/04/2018, short handwritten consultation sheet left in the chart at the time of my GI consultation. The entire chart is reviewed including but not limited to most recent lab and radiology study results, current and the previous medication list, current and the previous medical events, allergy to medication list as well as all the available current and the previous medical records. Case discussed at length with the staff as well as the admitting medical team before and immediately after my physical examination and GI consultation on 12/04/2018. HISTORY OF PRESENT ILLNESS: This is an 58-year-old male, very well-known case for me from previous admission, was readmitted to the hospital with recurrent episode of crampy, severe abdominal pain, nausea and vomiting for the past three to four days, believed to be secondary to poorly controlled diabetes mellitus and severe diabetic gastroparesis as well as his known recent history of gastric ulcer. No reported active bleeding, chest pain, palpitation, significant shortness of breath, chills or fever. PAST MEDICAL HISTORY: Including but not limited to, 1. Poorly controlled hypertension. 2. Hyperlipidemia. 3. Poorly controlled diabetes mellitus with diabetic gastroparesis. 4. Gastric ulcer with peptic ulcer disease. 5. Status post appendectomy. 6. Peripheral vascular disease with right second and third toe partial amputation and the big toe. 7. The patient recently had an upper endoscopy due to the same complaint and symptoms. FAMILY HISTORY: Noncontributory. SOCIAL HISTORY: Positive for alcohol intake on weekend, but no reported recent history of cigarette smoking. CURRENT MEDICATIONS: Medication lists were reviewed. ALLERGIES TO MEDICATIONS: UNKNOWN. LABORATORY DATA: Initial blood workup at the time of my GI consultation showed normal CBC, but low sodium of 121, most likely secondary to the patient hyperglycemia with blood glucose level of 252, total bilirubin 2 with ALT of 28, AST 36 with normal lipase and amylase level. PHYSICAL EXAMINATION: GENERAL: A 58-year-old male, afebrile with heart rate of 82, respiratory rate 20-22, blood pressure of 124/72. HEENT: Showed pale, dry oral mucous membrane. Nonicteric sclerae. LUNGS: Few scattered crepitation. Decreased air entry at bases. HEART: Positive S1 and S2. ABDOMEN: Soft with mild generalized tenderness. No mass or organomegaly. No rebound tenderness or guarding. EXTREMITIES: Without significant clubbing, cyanosis, but mild lower extremity edematous changes. Evidence of muscle wasting syndrome seen. NEUROLOGIC: No reported new neurological deficits, sensory or motor. No reported new focal deficits. IMPRESSION: 1. Re-exacerbation of peptic ulcer disease with known history of gastric ulcer, gastritis. 2. Poorly controlled diabetes mellitus with diabetic gastroparesis. 3. Multiple past medical history as mentioned above. SUGGESTIONS: 1. Agree with your plan. 2. Reglan IV. 3. Proton pump inhibitors. 4. Abdominal ultrasound with attention to the biliary tree and pancreas. 5. Antireflux measures. 6. Surgical consultation for potential gastric stimulator pacemaker if it is available. 7. Further recommendation to follow. Thank you for letting me participate in your patient's case management. Chad Palafox MD
--- NOTE | 2018-12-06 06:31 | HP ---
HISTORY OF PRESENT ILLNESS: A 58-year-old male with history of chronic recurrent hiccups, diabetes, hypertension who is noncompliant with diet, medication and followup. The patient developed intractable hiccups and once he developed hiccups, he started having nausea, vomiting, generalized weakness, and he requires medications. He started drinking a lot of water to suppress his hiccups, and he developed low sodium. The patient had same event this time. The patient was discharged recently from [facility]. After discharge, he developed intractable hiccups, nausea, vomiting, generalized weakness, and tiredness. The patient denied any history of fever, chills, or rigors. He denies polyuria, polydipsia, or polyphagia. He denies any history of hematuria or pyuria. He denies any sneezing, itchy eyes, or itchy nose. He denies any joint pain or hip pain. He denies any history of tingling, numbness, or paresthesia. No history of trauma, fall, or loss of consciousness. He drinks. The patient denies any skin rash. PAST MEDICAL HISTORY: Type 2 diabetes, hypertension, and hyperlipidemia. SOCIAL HISTORY: He is nonsmoker. He is alcohol user. CURRENT MEDICATIONS: He is on Thorazine, Zocor, Zofran, Reglan, Glucophage, Pancrease, NovoLog, Pepcid. PHYSICAL EXAMINATION: GENERAL: An elderly middle-aged male in distress with hiccups. VITAL SIGNS: Blood pressure 124/77, pulse 73, respiratory rate 20, temperature 98.3. SKIN: Dry. No bruises. No purpura. No petechiae. HEENT: Atraumatic, normocephalic. Negative pallor. Negative jaundice. Extraocular movements are intact. NECK: Supple. No JVD noted. No lymph nodes. No thyromegaly. CHEST WALL: Bilateral symmetrical expansion. No tenderness. No deformity. LUNGS: Clear. No rales. CARDIOVASCULAR SYSTEM: S1 and S2, regular. No heave. No thrill. ABDOMEN: Soft and nontender. Bowel sounds are exaggerated. RECTAL: No masses. No bleed. EXTREMITIES: No clubbing, cyanosis, or edema. CENTRAL NERVOUS SYSTEM: Awake, alert, and oriented x3. Cranial nerves II through XII are normal. Power 5/5 x4. Plantars are downgoing. ASSESSMENT: 1. Acute intractable hiccups. 2. Hypertension. 3. Hyponatremia due to psychogenic polydipsia. 4. Type 2 diabetes, poorly controlled. PLAN: Admit. Detailed orders are written. Seen and examined. Giovanni Vaughan MD
[2018-12-06 07:48] VITALS: BP 142/83; PULSE 67; TEMP 97.7; O2SAT 95
[2018-12-06] MEDS: (Novolin R) Insulin Human Regular 100 units/ml vial SC SCH ×4 (08:11→11:47)
[2018-12-06] MEDS: (Lantus) Insulin Glargine, Recombinant SC SCH (08:26)
[2018-12-06] MEDS: LIPASE/PROTEASE/AMYLASE 4,200 U ECC PO SCH ×2 (08:27→11:49)
[2018-12-06] MEDS ORDERED: Pneumococcal 23-Valent Vaccine IM ONE (10:00)
--- NOTE | 2018-12-06 10:01 | PN ---
DATE: 12/06/2018 LOCATION: 371, bed A. SUBJECTIVE: This is a 58-year-old male seen and examined in rounds without reported significant clinical changes or active bleeding with intermittent period of nausea and dyspepsia. No reported vomiting with less, much less episodes of hiccup. Again, the patient has fluctuation of his blood glucose level and today's latest blood glucose level is 137. Rest of the lab result is still pending. The recently done abdominal ultrasound, yesterday, report is seen. PHYSICAL EXAMINATION: GENERAL: This is a 58-year-old male awake, alert, oriented. VITAL SIGNS: Afebrile with pulse of 86, respiratory 20/22, blood pressure of 140/88. HEENT: Showed mildly pale, dry oral mucoid membrane. Nonicteric sclerae. LUNGS: Few scattered crepitation. Decreased air entry at bases. HEART: Positive S1 and S2. ABDOMEN: Soft with mild generalized tenderness. No mass or organomegaly. No rebound tenderness or guarding. EXTREMITIES: Without significant clubbing, cyanosis or edema. NEUROLOGIC: No reported new neurological deficits, sensory or motor. No reported new focal deficits. IMPRESSION: 1. Poorly controlled diabetes mellitus with diabetic gastroparesis. 2. Re-exacerbation of peptic ulcer disease with known history of gastric ulcer. 3. Known history of peripheral vascular disease with diabetic ulcer and status post right second and third toe amputation 4. Status post appendectomy. SUGGESTIONS: 1. Agree with your plan. 2. If there is recurrent episode of nausea and vomiting, then erythromycin 500 mg IV piggyback every 6 hours to be initiated. 3. Further recommendation to follow. Awaiting surgical reevaluation. Chad Palafox MD
[2018-12-06] MEDS: Enoxaparin 40 mg Syringe SC SCH (10:54)
[2018-12-06 11:41] LABS: BASO % 0.3 % (0.0-2.0); EOS % 0.8 % (0.0-4.0); LYMPH # 1.6 K/uL (1.0-4.3); LYMPH % 35.3 % (20.0-40.0); MEAN CORPUSCULAR HEMOGLOBIN 28.3 pg (27.0-31.0); MEAN CORPUSCULAR HGB CONC 33.5 g/dL (33.0-37.0); MEAN PLATELET VOLUME 7.7 fL (7.2-11.7); MONO # 0.3 K/uL (0.0-0.8); NEUT # 2.6 K/uL (1.8-7.0); NEUT % 56.6 % (50.0-75.0); RBC 4.24 Mil/uL (4.40-5.90); RED CELL DISTRIBUTION WIDTH 15.5 % (11.5-14.5)
[2018-12-06 11:49] LABS: BLOOD UREA NITROGEN 10 mg/dL (9-20); CALCIUM 8.3 mg/dl (8.6-10.4); GFR NON-AFRICAN AMERICAN 57
[2018-12-06 12:00] LABS: MEAN CELL VOLUME 84.6 fL (80.0-94.0); WHITE BLOOD COUNT 4.6 K/uL (4.8-10.8)
--- NOTE | 2018-12-06 17:22 | CP.PCM.PN ---
Subjective - Date & Time of Evaluation Date of Evaluation: 12/06/18 Time of Evaluation: 11:00 - Subjective Subjective: alert and orientedx3, no sob or abdominal pain, tolerated diet, NAD. Objective - Vital Signs/Intake and Output Vital Signs (last 24 hours): Temp Pulse Resp BP Pulse Ox 97.7 F 67 20 142/83 95 12/06/18 07:00 12/06/18 07:00 12/06/18 07:00 12/06/18 07:00 12/06/18 07:00 Intake and Output: 12/06/18 12/06/18 06:59 18:59 Intake Total 2580 Output Total 1600 Balance 980 - Labs Labs: 12/06/18 11:20 12/06/18 11:20 Assessment and Plan - Assessment and Plan (Free Text) Assessment: 58 year old male admitted with persistent vomiting, abdominal pain, seen and examined. Alert and orientedx3, denies vomiting or pain. Discussed with DR Vaughan, plan to discharge home. He has appointment with GI specialist at [place] tomorrow. Advised to follow up with PMD in 1 week.
--- NOTE | 2018-12-07 00:29 | CP.PCM.DIS ---
Provider - Provider Date of Admission: 12/04/18 10:24 Attending physician: Giovanni Vaughan MD Consults: 12/04/18 10:21 Endocrinology Consult Stat Comment: Consulting Provider: Stanley Han Consulting Physician: Stanley Han Reason for Consult: dm Gastroenterology Consult Stat Comment: Consulting Provider: Chad Bliss Consulting Physician: Chad Bliss Reason for Consult: gastritis Time Spent in preparation of Discharge (in minutes): 40 Hospital Course - Lab Results Lab Results: Most Recent Lab Values WBC 4.6 K/uL (4.8-10.8) L D 12/06/18 11:20 RBC 4.24 Mil/uL (4.40-5.90) L 12/06/18 11:20 Hgb 12.0 g/dL (12.0-18.0) 12/06/18 11:20 Hct 35.9 % (35.0-51.0) 12/06/18 11:20 MCV 84.6 fL (80.0-94.0) D 12/06/18 11:20 MCH 28.3 pg (27.0-31.0) 12/06/18 11:20 MCHC 33.5 g/dL (33.0-37.0) 12/06/18 11:20 RDW 15.5 % (11.5-14.5) H 12/06/18 11:20 Plt Count 386 K/uL (130-400) 12/06/18 11:20 MPV 7.7 fL (7.2-11.7) 12/06/18 11:20 Neut % (Auto) 56.6 % (50.0-75.0) 12/06/18 11:20 Lymph % (Auto) 35.3 % (20.0-40.0) 12/06/18 11:20 [place] % (Auto) 7.0 % (0.0-10.0) 12/06/18 11:20 Eos % (Auto) 0.8 % (0.0-4.0) 12/06/18 11:20 Baso % (Auto) 0.3 % (0.0-2.0) 12/06/18 11:20 Neut # (Auto) 2.6 K/uL (1.8-7.0) 12/06/18 11:20 Lymph # (Auto) 1.6 K/uL (1.0-4.3) 12/06/18 11:20 [place] # (Auto) 0.3 K/uL (0.0-0.8) 12/06/18 11:20 Eos # (Auto) 0.0 K/uL (0.0-0.7) 12/06/18 11:20 Baso # (Auto) 0.0 K/uL (0.0-0.2) 12/06/18 11:20 Sodium 135 mmol/L (132-148) 12/06/18 11:20 Potassium 4.5 mmol/L (3.6-5.2) 12/06/18 11:20 Chloride 100 mmol/L (98-107) 12/06/18 11:20 Carbon Dioxide 27 mmol/L (22-30) 12/06/18 11:20 Anion Gap 13 (10-20) 12/06/18 11:20 BUN 10 mg/dL (9-20) 12/06/18 11:20 Creatinine 1.3 mg/dL (0.8-1.5) 12/06/18 11:20 Est GFR ( Amer) > 60 12/06/18 11:20 Est GFR (Non-Af Amer) 57 12/06/18 11:20 POC Glucose (mg/dL) 216 mg/dL (65-110) H 12/06/18 11:01 Random Glucose 200 mg/dL (75-110) H 12/06/18 11:20 Hemoglobin A1c 8.7 % (4.2-6.5) H 12/05/18 11:45 Calcium 8.3 mg/dl (8.6-10.4) L 12/06/18 11:20 Phosphorus 2.8 mg/dL (2.5-4.5) 12/05/18 11:45 Magnesium 2.1 mg/dL (1.6-2.3) 12/05/18 11:45 Total Bilirubin 0.8 mg/dL (0.2-1.3) 12/05/18 11:45 AST 23 U/L (17-59) 12/05/18 11:45 ALT 17 U/L (21-72) L 12/05/18 11:45 Alkaline Phosphatase 74 U/L (38-126) 12/05/18 11:45 Total Protein 5.9 g/dL (6.3-8.3) L 12/05/18 11:45 Albumin 3.2 g/dL (3.5-5.0) L D 12/05/18 11:45 Globulin 2.6 gm/dL (2.2-3.9) 12/05/18 11:45 Albumin/Globulin Ratio 1.2 (1.0-2.1) 12/05/18 11:45 Amylase 82 U/L (30-110) 12/05/18 11:45 Lipase < 10 U/L (23-300) L 12/05/18 11:45 Urine Color Yellow (YELLOW) 12/04/18 09:35 Urine Clarity Clear (Clear) 12/04/18 09:35 Urine pH 6.0 (5.0-8.0) 12/04/18 09:35 Ur Specific [place] 1.006 (1.003-1.030) 12/04/18 09:35 Urine Protein Negative mg/dL (NEGATIVE) 12/04/18 09:35 Urine Glucose (UA) 1+ mg/dL (Normal) H 12/04/18 09:35 Urine Ketones 1+ mg/dL (NEGATIVE) H 12/04/18 09:35 Urine Blood Negative (NEGATIVE) 12/04/18 09:35 Urine Nitrate Negative (NEGATIVE) 12/04/18 09:35 Urine Bilirubin Negative (NEGATIVE) 12/04/18 09:35 Urine Urobilinogen Normal mg/dL (0.2-1.0) 12/04/18 09:35 Ur Leukocyte Esterase Neg Lauren/uL (Negative) 12/04/18 09:35 Urine WBC (Auto) 1 /hpf (0-5) 12/04/18 09:35 Urine RBC (Auto) < 1 /hpf (0-3) 12/04/18 09:35 Urine Opiates Screen Negative (NEGATIVE) 12/04/18 09:35 Urine Methadone Screen Negative (NEGATIVE) 12/04/18 09:35 Ur Barbiturates Screen Negative (NEGATIVE) 12/04/18 09:35 Ur Phencyclidine Scrn Negative (NEGATIVE) 12/04/18 09:35 Ur Amphetamines Screen Negative (NEGATIVE) 12/04/18 09:35 U Benzodiazepines Scrn Negative (NEGATIVE) 12/04/18 09:35 U Oth Cocaine Metabols Positive (NEGATIVE) H 12/04/18 09:35 U Cannabinoids Screen Negative (NEGATIVE) 12/04/18 09:35 Discharge Plan - Discharge Medications Prescriptions: Insulin Aspart/Insulin Aspar [Novolog Mix 70/30 (70/30 units/ml)] 30 units SC BIDAC 30 Days unit Metoclopramide [Reglan] 10 mg PO ACTID PRN #30 tab PRN Reason: Nausea/Vomiting - Follow Up Plan Condition: STABLE Disposition: HOME/ ROUTINE Instructions: Hyponatremia (DC), Gastroparesis (Delayed Gastric Emptying) (DC), Metoclopramide, Insulin Aspart Additional Instructions: CONTINUE WITH PRESENT MEDICATIONS FOLLOW UP WITH GI SPECIALIST TOMORROW SCHEDULED Referrals: Chad Bliss [Staff Provider] - Stanley Han MD [Staff Provider] - Giovanni Vaughan MD [Staff Provider] -
--- NOTE | 2018-12-08 03:44 | DS ---
DISCHARGE DIAGNOSES: 1. Hyponatremia due to psychogenic polydipsia. 2. Intractable hiccup. 3. Type 2 diabetes. HISTORY OF PRESENT ILLNESS: This is a 58-year-old male with history of diabetes, hypertension, hyperlipidemia, noncompliance with diet, medications, and followup. He came in because of intractable hiccup, psychogenic polydipsia. The patient tries to stop his hiccup by drinking water and that is why his sodium dropped. The patient was started on IV fluids, normal saline. Accu-Cheks sliding scale. Endocrinology consult. The patient did well and he is for discharge. Condition upon discharge stable. PHYSICAL EXAMINATION: VITAL SIGNS: Blood pressure 142/83, pulse 67, respiratory rate 20, temperature 97.7. LUNGS: Clear. ABDOMEN: Soft. Bowel sounds are positive. DISCHARGE DIAGNOSES: 1. Intractable hiccup. 2. Psychogenic polydipsia. 3. Diabetes. 4. Hypertension. PLAN: Discharge. Giovanni Vaughan MD
== END 2018-12-06 12:53 | disposition home or self-care (01) ==
LOC: C.ER 07:57 → C.9E 10:24 → C.3T 10:43
PROVIDERS: ADMIT Internal Medicine; ATTEND Internal Medicine
DX: E11.43 Type 2 diabetes mellitus with diabetic autonomic (poly)neuropathy (principal); K31.84 Gastroparesis; E03.9 Hypothyroidism, unspecified; E11.51 Type 2 diabetes mellitus with diabetic peripheral angiopathy without gangrene; E11.649 Type 2 diabetes mellitus with hypoglycemia without coma; E11.65 Type 2 diabetes mellitus with hyperglycemia; E78.00 Pure hypercholesterolemia, unspecified; E78.5 Hyperlipidemia, unspecified; E87.1 Hypo-osmolality and hyponatremia; I10 Essential (primary) hypertension; K27.9 Peptic ulcer, site unspecified, unspecified as acute or chronic, without hemorrhage or perforation; K57.92 Diverticulitis of intestine, part unspecified, without perforation or abscess without bleeding; R17 Unspecified jaundice; Z79.4 Long term (current) use of insulin; Z87.11 Personal history of peptic ulcer disease; Z89.421 Acquired absence of other right toe(s); Z90.49 Acquired absence of other specified parts of digestive tract; Z91.11 Patient's noncompliance with dietary regimen; Z83.3 Family history of diabetes mellitus
CPT/HCPCS: 36415; 76700; 80048; 80053; 81001; 82150; 82948; 83036; 83690; 83735; 84100; 85025; 85027; 96372; 96374; 96375; 96376; 99285; C9113; G0378; G0480; J1885; J2270; J2405; J2765; J3230; J7030

== ENCOUNTER 2018-12-09 08:56 | Emergency (ER) | payer MEDICARE | END 2018-12-09 13:11 | disposition home or self-care (01) | LOC: C.ER 08:56 ==

== ENCOUNTER 2018-12-09 13:56 | Inpatient (IN) | payer MEDICARE ==
[2018-12-09 13:56] VITALS: BMI 23.1
--- NOTE | 2018-12-09 14:56 | C.PDOC ---
History Of Present Illness 58 y/o male pt presents to the ER c/o continuous hiccupping after getting discharge from the ER today. Pt was seen for abdominal pain and hiccupping. Currently, pt denies any abdominal pain and vomiting. Pt does not have any other complaints or associated sx at this time. Time Seen by Provider: 12/09/18 14:56 Chief Complaint (Nursing): Abdominal Pain History Per: Patient History/Exam Limitations: no limitations Onset/Duration Of Symptoms: Hrs Current Symptoms Are (Timing): Still Present Past Medical History Reviewed: Historical Data, Nursing Documentation, Vital Signs Vital Signs: Last Vital Signs Temp 98.6 F 12/09/18 14:20 Pulse 82 12/09/18 14:20 Resp 18 12/09/18 14:20 BP 123/83 12/09/18 14:20 Pulse Ox 100 12/09/18 14:20 Primary Care Provider: Giovanni Vaughan - Medical History PMH: Diabetes, Gastritis, Gastrointestinal Ulcer, HTN, Hypercholesterolemia Surgical History: Appendectomy (right 2nd and 3rd toes partially amputated ,and Big toe) - [facility] Procedures DETACHMENT AT RIGHT 1ST TOE, LOW, OPEN APPROACH (08/20/17) EXCISION OF STOMACH, ENDO, DIAGN (08/17/18) Family History: States: Unknown Family Hx - Social History Hx Alcohol Use: Yes (weekends) Hx Substance Use: No - Immunization History Hx Tetanus Toxoid Vaccination: No Hx Influenza Vaccination: No Hx Pneumococcal Vaccination: No Review Of Systems Constitutional: Positive for: Other (continuous hiccupping ). Negative for: Fever, Chills, Sweats, Weakness, Malaise, Weight loss Eyes: Negative for: Pain, Vision Change, Eyelid Inflammation ENT: Negative for: Ear Pain, Ear Discharge, Nose Pain, Nose Congestion, Mouth Pain, Mouth Swelling, Throat Pain, Throat Swelling Cardiovascular: Negative for: Chest Pain, Palpitations, Edema Respiratory: Negative for: Cough, Shortness of Breath, Sputum Gastrointestinal: Negative for: Nausea, Vomiting, Abdominal Pain, Diarrhea, Constipation, Melena, Hematochezia, Hematemesis Genitourinary: Negative for: Dysuria, Frequency, Incontinence, Hematuria, Penile Discharge, Scrotal Pain, Rash Musculoskeletal: Negative for: Neck Pain, Shoulder Pain, Arm Pain, Back Pain, Hand Pain, Leg Pain Skin: Negative for: Rash, Lesions Neurological: Negative for: Weakness, Numbness, Headache Physical Exam - Physical Exam Appears: Well, Non-toxic, No Acute Distress Skin: Warm, Dry Head: Atraumatic, Normacephalic Eye(s): bilateral: Normal Inspection, PERRL, EOMI Nose: Normal, No Flaring, No Discharge Oral Mucosa: Moist Throat: Normal, No Erythema, No Exudate Neck: Normal, Normal ROM, Supple, Other (no meningeal signs -negative kernig's and brudzinki's ) Lymphatic: Normal Exam Chest: Symmetrical Cardiovascular: Rhythm Regular, No Friction Rub Respiratory: No Rales, No Rhonchi, No Wheezing Gastrointestinal/Abdominal: Soft, No Tenderness, No Distention Back: Normal Inspection, No CVA Tenderness, No Vertebral Tenderness Extremity: Normal ROM, No Deformity Extremity: Bilateral: Atraumatic, Normal Color And Temperature Pulses: Left Dorsalis Pedis: Normal (2+), Right Dorsalis Pedis: Normal (2+) Neurological/Psych: Oriented x3, Normal Speech, Normal Cognition Gait: Steady ED Course And Treatment - Laboratory Results Result Diagrams: 12/10/18 06:09 12/11/18 08:21 O2 Sat by Pulse Oximetry: 100 (RA) Pulse Ox Interpretation: Normal Medical Decision Making Medical Decision Making: Impression: 58 y/o male pt presents to the ER c/o continuous hiccupping after getting discharge from the ER today. tolerated water- however did not tolerate solids, given return visit and intractable vomiting, will admit jeanned Dr. Giovanni vaughan for admission pt in [facility] 175 Appreciate consult w/ DR. Davila: to admit to his service pt in [facility], agreeable to plan Disposition - Disposition Disposition: HOME/ ROUTINE Disposition Time: 17:54 Condition: GOOD - Clinical Impression Clinical Impression: Vomiting - Scribe Statement The provider has reviewed the documentation as recorded by the Dennis Valenzuela Do Provider Attestation: All medical record entries made by the Laureenibjamie were at my direction and persona lly dictated by me. I have reviewed the chart and agree that the record accurately reflects my personal performance of the history, physical exam, medical decision making, and the department course for this patient. I have also personally directed, reviewed, and agree with the discharge instructions and disposition.
[2018-12-09] MEDS ORDERED: Sodium Chloride 0.9% 1,000 ML ONE (18:54)
[2018-12-09] MEDS: Sodium Chloride 0.9% 1,000 ML IV SCH ×2 (21:05→22:57)
[2018-12-10] MEDS: Morphine 4 MG/ML VIAL IV PRN ×2 (03:06→08:54)
[2018-12-10] MEDS: Sodium Chloride 0.9% 1,000 ML IV SCH ×3 (04:18→09:06)
[2018-12-10 06:30] LABS: HEMOGLOBIN 13.2 g/dL (12.0-18.0); MEAN CELL VOLUME 81.3 fL (80.0-94.0); MEAN CORPUSCULAR HEMOGLOBIN 28.7 pg (27.0-31.0); MEAN CORPUSCULAR HGB CONC 35.3 g/dL (33.0-37.0); RBC 4.59 Mil/uL (4.40-5.90); RED CELL DISTRIBUTION WIDTH 15.1 % (11.5-14.5); WHITE BLOOD COUNT 6.2 K/uL (4.8-10.8)
[2018-12-10 06:35] LABS: ALB/GLOB RATIO 1.4 (1.0-2.1); ALT/SGPT 24 U/L (21-72); AST/SGOT 31 U/L (17-59); BLOOD UREA NITROGEN 10 mg/dL (9-20); CALCIUM 8.9 mg/dl (8.6-10.4); GFR NON-AFRICAN AMERICAN > 60
[2018-12-10 07:57] VITALS: RESP 20
[2018-12-10] MEDS: (Novolog Mix 70/30) Insulin Aspart/Insulin Aspar 100 units/ml SC SCH ×2 (08:30→16:30)
[2018-12-10] MEDS: (Novolin R) Insulin Human Regular 100 units/ml vial SC SCH ×4 (08:30→21:13)
[2018-12-10] MEDS: LIPASE/PROTEASE/AMYLASE 4,200 U ECC PO SCH ×3 (08:30→17:17)
[2018-12-10] MEDS: Enoxaparin 40 mg Syringe SC SCH ×2 (10:25→10:27)
[2018-12-10 13:13] LABS: AMYLASE 110 U/L (30-110); LIPASE < 10 U/L (23-300)
--- NOTE | 2018-12-10 13:54 | CP.PCM.CON ---
<Hima Christie - Last Filed: 12/10/18 15:21> History of Present Illness - History of Present Illness History of Present Illness: General Surgery Consult Note for Dr. Nunez Reason for consult: gastroparesis requiring gastric pacemaker 58 M with PMH of DM presented to [facility] for abd pain, nausea and vomiting. He was being discharged from ED on 12/09 but then developed uncontrollable singultus then was admitted. Patient states that these symptoms have been present for 7 months. Patienthas several admissions for similar symptoms recently. Patient reports intermittent abd pain and currently it is controlled. He has been having nausea/vomiting. Patient reports flatus and BM. Eating/drinking aggravates his symptoms while nothing specifically alleviates it. Denies fever/chills, sweats, chest pain, palpitations, SOB. Patient had endoscopies recently as well. On last admission, patient was suppose to get referred to a gastric pacemaker certified physician and center but never followed up. Patient should be referred to [facility] upon discharge. PMH: DM PSH: right first, second, and third toe amputations Meds: humulin 70/30, thorazine, carafate, pepcid, crestor Allergies: NKDA Social: former smoker daily for years, quit alcohol a few months ago - previously daily drinker, denies illicit drug use Review of Systems - Review of Systems All systems: reviewed and no additional remarkable complaints except (as per H PI) Past Patient History - Infectious Disease Hx of Infectious Diseases: None - Tetanus Immunizations Tetanus Immunization: Unknown - Past Medical History & Family History Past Medical History?: Yes - Past Social History Smoking Status: Unknown If Ever Smoked - CARDIAC Hx Hypercholesterolemia: Yes Hx Hypertension: Yes - PULMONARY Hx Respiratory Disorders: No - NEUROLOGICAL Hx Neurological Disorder: No - HEENT Hx HEENT Problems: No - RENAL Hx Chronic Kidney Disease: No - ENDOCRINE/METABOLIC Hx Endocrine Disorders: Yes Hx Diabetes Mellitus Type 2: Yes - HEMATOLOGICAL/ONCOLOGICAL Hx Blood Disorders: No - INTEGUMENTARY Hx Dermatological Problems: Yes Other/Comment: HX: GANGRENE RIGHT FOOT TOE(GREAT) surgery. 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) surgery - MUSCULOSKELETAL/RHEUMATOLOGICAL Hx Falls: No - GASTROINTESTINAL Hx Gastritis: Yes - GENITOURINARY/GYNECOLOGICAL Hx Genitourinary Disorders: No - PSYCHIATRIC Hx Substance Use: No - SURGICAL HISTORY Hx Appendectomy: Yes (right 2nd and 3rd toes partially amputated ,and Big toe) - ANESTHESIA Hx Anesthesia: Yes Hx Anesthesia Reactions: No Hx Malignant Hyperthermia: No Meds Allergies/Adverse Reactions: Allergies Allergy/AdvReac Type Severity Reaction Status Date / Time No Known Allergies Allergy Verified 12/09/18 10:00 - Medications Medications: Current Medications Chlorpromazine (Thorazine) 25 mg PO Q8H [facility] Enoxaparin Sodium (Lovenox) 40 mg SC DAILY [facility] Last Admin: 12/10/18 10:27 Dose: Not Given Sodium Chloride (Sodium Chloride 0.9%) 1,000 mls @ 50 mls/hr IV .Q20H [facility] Last Admin: 12/10/18 09:06 Dose: 50 mls/hr Insulin Aspart (Novolog Mix 70/30 (70/30 Units/Ml)) 30 units SC BIDAC [facility] Last Admin: 12/10/18 08:30 Dose: 30 units Insulin Human Regular (Novolin R) 0 unit SC ACHS [facility]; Protocol Last Admin: 12/10/18 11:59 Dose: 2 units Metformin HCl (Glucophage) 500 mg PO BID [facility] Last Admin: 12/10/18 10:25 Dose: 500 mg Metoclopramide HCl (Reglan) 10 mg PO ACTID PRN PRN Reason: Nausea/Vomiting Last Admin: 12/10/18 08:57 Dose: 10 mg Morphine Sulfate (Morphine) 1 mg IV Q4 PRN PRN Reason: Pain, moderate (4-7) Last Admin: 12/10/18 08:54 Dose: 1 mg Rosuvastatin Calcium (Crestor) 2.5 mg PO HS [facility] Physical Exam - Constitutional Appears: No Acute Distress - Head Exam Head Exam: ATRAUMATIC, NORMOCEPHALIC - Eye Exam Eye Exam: EOMI, Normal appearance - ENT Exam ENT Exam: Mucous Membranes Moist - Respiratory Exam Respiratory Exam: NORMAL BREATHING PATTERN - Cardiovascular Exam Cardiovascular Exam: REGULAR RHYTHM - GI/Abdominal Exam GI & Abdominal Exam: Normal Bowel Sounds, Soft, Tenderness (mild epigastric). absent: Distended, Firm, Guarding, Hernia, Rebound, Rigid - Extremities Exam Extremities exam: Positive for: normal capillary refill - Back Exam Back exam: absent: CVA tenderness (L), CVA tenderness (R) - Neurological Exam Neurological exam: Alert, CN II-XII Intact, Oriented x3 - Psychiatric Exam Psychiatric exam: Normal Affect, Normal Mood - Skin Skin Exam: Dry, Warm Results - Vital Signs Recent Vital Signs: Last Vital Signs Temp 97.9 F 12/10/18 07:56 Pulse 87 12/10/18 07:56 Resp 20 12/10/18 07:56 BP 170/99 H 12/10/18 07:56 Pulse Ox 97 12/10/18 07:56 - Labs Result Diagrams: 12/10/18 06:09 12/10/18 06:09 Labs: Laboratory Results - last 24 hr 12/09/18 12/10/18 12/10/18 22:24 06:09 06:09 WBC 6.2 RBC 4.59 Hgb 13.2 Hct 37.4 MCV 81.3 MCH 28.7 MCHC 35.3 RDW 15.1 H Plt Count 472 H MPV 8.0 Sodium 124 L Potassium 4.2 Chloride 85 L Carbon Dioxide 25 Anion Gap 19 BUN 10 Creatinine 1.0 Est GFR ( Amer) > 60 Est GFR (Non-Af Amer) > 60 POC Glucose (mg/dL) 218 H Random Glucose 286 H D Calcium 8.9 Phosphorus 3.1 Magnesium 1.8 Total Bilirubin 1.4 H AST 31 ALT 24 Alkaline Phosphatase 89 Total Protein 6.9 Albumin 4.0 Globulin 2.9 Albumin/Globulin Ratio 1.4 Amylase 110 D Lipase < 10 L 12/10/18 12/10/18 07:10 11:22 WBC RBC Hgb Hct MCV MCH MCHC RDW Plt Count MPV Sodium Potassium Chloride Carbon Dioxide Anion Gap BUN Creatinine Est GFR ( Amer) Est GFR (Non-Af Amer) POC Glucose (mg/dL) 298 H 239 H Random Glucose Calcium Phosphorus Magnesium Total Bilirubin AST ALT Alkaline Phosphatase Total Protein Albumin Globulin Albumin/Globulin Ratio Amylase Lipase Assessment & Plan - Assessment and Plan (Free Text) Assessment: 58 M with DM and gastroparesis presents for recurrent abd pain and nausea/vomiting Plan: -diet as tolerated -Patient should be referred to [facility] or gastric pacemaker certified facility upon discharge -f/u GI recommendations -Medical management as per primary -Discussed with Dr. Fu PGY2 - Date & Time Date: 12/10/18 Time: 14:30 <Gerardo Vázquez - Last Filed: 12/13/18 08:56> Meds - Medications Medications: Current Medications Chlorpromazine (Thorazine) 25 mg PO Q8H [facility] Last Admin: 12/13/18 05:39 Dose: 25 mg Enoxaparin Sodium (Lovenox) 40 mg SC DAILY [facility] Last Admin: 12/12/18 09:59 Dose: Not Given Sodium Chloride (Sodium Chloride 0.9%) 1,000 mls @ 70 mls/hr IV .[id number] [facility] Last Admin: 12/13/18 04:14 Dose: 70 mls/hr Insulin Aspart (Novolog Mix 70/30 (70/30 Units/Ml)) 30 units SC BIDAC [facility] Last Admin: 12/13/18 08:26 Dose: 30 units Insulin Human Regular (Novolin R) 0 unit SC ACHS [facility]; Protocol Last Admin: 12/13/18 08:26 Dose: 6 units Metformin HCl (Glucophage) 500 mg PO BID [facility] Last Admin: 12/12/18 17:34 Dose: Not Given Metoclopramide HCl (Reglan) 10 mg PO ACTID PRN PRN Reason: Nausea/Vomiting Last Admin: 12/13/18 02:45 Dose: 10 mg Morphine Sulfate (Morphine) 1 mg IV Q4 PRN PRN Reason: Pain, moderate (4-7) Last Admin: 12/11/18 14:39 Dose: 1 mg Rosuvastatin Calcium (Crestor) 2.5 mg PO [facility] Last Admin: 12/12/18 21:16 Dose: 2.5 mg Results - Vital Signs Recent Vital Signs: Last Vital Signs Temp 97.8 F 12/13/18 07:54 Pulse 75 12/13/18 07:54 Resp 20 12/13/18 07:54 BP 139/85 12/13/18 07:54 Pulse Ox 97 12/13/18 07:54 - Labs Result Diagrams: 12/10/18 06:09 12/13/18 06:53 Labs: Laboratory Results - last 24 hr 12/12/18 12/12/18 12/12/18 09:00 11:04 16:35 Sodium 131 L Potassium 4.8 Chloride 96 L Carbon Dioxide 27 Anion Gap 13 BUN 11 Creatinine 1.1 Est GFR ( Amer) > 60 Est GFR (Non-Af Amer) > 60 POC Glucose (mg/dL) 314 H 43 L Random Glucose 285 H D Calcium 8.6 12/12/18 12/12/18 12/12/18 16:37 17:00 21:17 Sodium Potassium Chloride Carbon Dioxide Anion Gap BUN Creatinine Est GFR ( Amer) Est GFR (Non-Af Amer) POC Glucose (mg/dL) 44 L 84 192 H Random Glucose Calcium 12/13/18 12/13/18 06:53 07:05 Sodium 130 L Potassium 5.4 H Chloride 94 L Carbon Dioxide 26 Anion Gap 15 BUN 17 Creatinine 1.1 Est GFR ( Amer) > 60 Est GFR (Non-Af Amer) > 60 POC Glucose (mg/dL) 401 H* Random Glucose 373 H D Calcium 8.3 L Assessment & Plan - Assessment and Plan (Free Text) Plan: All medical record entries made by the resident were at my direction. I have reviewed the chart and agree that the record accurately reflects my personal performance of the history, physical exam, and medical decision making. Patient will need referral to [facility], as they are approved to place gastric pacemaker.
--- NOTE | 2018-12-10 14:51 | PN ---
DATE: 12/10/2018 LOCATION: 371, bed A. SUBJECTIVE: This is a 58-year-old male seen and examined initially for GI consultation on 12/10/2018, reexamined again this morning with intermittent period of nausea and dyspepsia with occasional hiccup, no reported active bleeding but recent change of bowel movement habit. The entire chart is reviewed including but not limited to the most recent lab and radiology study results, current and the previous medication list, current and the previous medical events. Case discussed with the staff at length. On record, the patient denied any active GI bleeding or chest pain or palpitation. The entire chart is reviewed including but not limited to most recent lab and radiology study results, current and the previous medication list, current and the previous medical events. Today's lab showed normal CBC, but blood glucose level of 298 with total bilirubin 1.4. PHYSICAL EXAMINATION: GENERAL: A 58-year-old male, awake, alert, oriented. VITAL SIGNS: Afebrile with pulse of 82, respiratory rate 20 to 22, blood pressure of 164/86. HEENT: Showed pale, dry oral mucous membrane, slightly icteric sclerae bilaterally. LUNGS: Few scattered crepitation. Decreased air entry at bases. HEART: Positive S1 and S2. ABDOMEN: Soft with mild generalized tenderness. No mass or organomegaly. No rebound tenderness or guarding. EXTREMITIES: Without significant clubbing, cyanosis or edema. IMPRESSION: 1. Re-exacerbation of peptic ulcer disease with gastric ulcer. 2. Known history of hypertension, hyperlipidemia. 3. Poorly controlled diabetes mellitus with diabetic gastroparesis. 4. Peripheral vascular disease with reported right second and third toe partially amputated. 5. Status post appendectomy. SUGGESTIONS: 1. Continue current management. 2. Again, the patient will need surgical consultation for potential gastric stimulator, pacemaker by the surgical team. 3. Further recommendation to follow. Chad Palafox MD
[2018-12-10] MEDS ORDERED: Dextrose 50% SYRINGE Inj (50 ml) IV STA (15:59)
[2018-12-10] MEDS ORDERED: Dextrose 50% SYRINGE Inj (50 ml) ONE (16:03)
[2018-12-10] MEDS: Rosuvastatin Calcium 2.5 mg Tab PO SCH (21:04)
[2018-12-11] MEDS: Morphine 4 MG/ML VIAL IV PRN ×2 (03:02→14:39)
--- NOTE | 2018-12-11 04:04 | HP ---
CHIEF COMPLAINT: Nausea, hiccups, vomiting, inability to tolerate food. HISTORY OF PRESENT ILLNESS: This is a 58-year-old male, well known to me with a history of psychogenic polydipsia, nausea, vomiting, intractable hiccups, hypertension, type 2 diabetes, who is noncompliant with the diet, medication, and followup. He had multiple successive admissions, multiple hospitalizations, evaluations and ER visits with nausea, vomiting, and intractable hiccups. Once the patient starts hiccups, he drinks excessive amount of water, drops his sodium to a dangerous level. He feels generalized weakness, tiredness, anorexia, malaise, and fatigue. The patient is weak. The patient denies any shortness of breath. No cough. No fever. The patient has nausea. He has abdominal discomfort. He has polyuria, polydipsia, polyphagia. He denies any hematuria, pyuria. He denies any sneezing, itchy eyes, or itchy nose. There is no history of trauma, fall, or loss of consciousness. No history of seizure-like activity. He has tingling and numbness in the feet. He denies any skin rash. He denies any hip pain, leg pain, and he denies any involuntary movements. PAST MEDICAL HISTORY: Type 2 diabetes, hypertension. SOCIAL HISTORY: He smokes, he drinks, and he denies substance abuse. FAMILY HISTORY: Noncontributory. CURRENT MEDICATIONS: Insulin, Protonix, Reglan, Zofran, and the patient is also on Thorazine. PHYSICAL EXAMINATION: GENERAL: A middle-aged male in distress with nausea, vomiting and he has intractable hiccups at the moment. VITAL SIGNS: Blood pressure is 130/83, pulse 78, respiratory rate 22, temperature 99. SKIN: Dry. No bruises. No purpura. No petechiae. HEENT: Atraumatic, normocephalic. Negative pallor. Negative jaundice. Extraocular movements are intact. NECK: Supple. No JVD. No lymph node. No thyromegaly. No carotid bruit. CHEST WALL: Bilateral symmetrical expansion. No tenderness. No deformity. LUNGS: Bilaterally clear. No rales. No rhonchi. CARDIOVASCULAR SYSTEM: PMI not localized. S1, S2. Regular. No heave. No thrill. ABDOMEN: Soft, nontender. Bowel sound was exaggerated. No distention. No masses. No guarding, no rigidity. RECTAL: No masses. No bleed. EXTREMITIES: No clubbing, cyanosis, edema. CENTRAL NERVOUS SYSTEM: Awake, alert, oriented x3. Cranial nerves II through XII are normal. Power 5/5 x4. Plantars are downgoing. ASSESSMENT: 1. Intractable nausea, vomiting, and hiccups. Rule out diabetic gastroparesis versus stress gastritis versus peptic ulcer disease. 2. Hypertension. 3. Type 2 diabetes, poorly controlled. 4. Dehydration. PLAN: Admit. Detailed orders are written. Seen and examined. Giovanni Vaughan MD
[2018-12-11] MEDS: Sodium Chloride 0.9% 1,000 ML IV SCH ×2 (05:43→15:30)
[2018-12-11] MEDS: (Novolin R) Insulin Human Regular 100 units/ml vial SC SCH ×4 (08:25→21:34)
[2018-12-11] MEDS: (Novolog Mix 70/30) Insulin Aspart/Insulin Aspar 100 units/ml SC SCH ×2 (08:25→17:20)
[2018-12-11] MEDS: LIPASE/PROTEASE/AMYLASE 4,200 U ECC PO SCH ×3 (08:26→17:20)
[2018-12-11 09:00] LABS: BLOOD UREA NITROGEN 12 mg/dL (9-20); CALCIUM 8.1 mg/dl (8.6-10.4); GFR NON-AFRICAN AMERICAN > 60
[2018-12-11] MEDS: Enoxaparin 40 mg Syringe SC SCH (11:58)
--- NOTE | 2018-12-11 14:03 | CP.PCM.CON ---
History of Present Illness - History of Present Illness History of Present Illness: pt is seen and examined, full consult is dictated #[id number] Past Patient History - Infectious Disease Hx of Infectious Diseases: None - Tetanus Immunizations Tetanus Immunization: Unknown - Past Medical History & Family History Past Medical History?: Yes - Past Social History Smoking Status: Unknown If Ever Smoked - CARDIAC Hx Hypercholesterolemia: Yes Hx Hypertension: Yes - PULMONARY Hx Respiratory Disorders: No - NEUROLOGICAL Hx Neurological Disorder: No - HEENT Hx HEENT Problems: No - RENAL Hx Chronic Kidney Disease: No - ENDOCRINE/METABOLIC Hx Endocrine Disorders: Yes Hx Diabetes Mellitus Type 2: Yes - HEMATOLOGICAL/ONCOLOGICAL Hx Blood Disorders: No - INTEGUMENTARY Hx Dermatological Problems: Yes Other/Comment: HX: GANGRENE RIGHT FOOT TOE(GREAT) surgery. 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) surgery - MUSCULOSKELETAL/RHEUMATOLOGICAL Hx Falls: No - GASTROINTESTINAL Hx Gastritis: Yes - GENITOURINARY/GYNECOLOGICAL Hx Genitourinary Disorders: No - PSYCHIATRIC Hx Substance Use: No - SURGICAL HISTORY Hx Appendectomy: Yes (right 2nd and 3rd toes partially amputated ,and Big toe) - ANESTHESIA Hx Anesthesia: Yes Hx Anesthesia Reactions: No Hx Malignant Hyperthermia: No Meds Allergies/Adverse Reactions: Allergies Allergy/AdvReac Type Severity Reaction Status Date / Time No Known Allergies Allergy Verified 12/09/18 10:00 - Medications Medications: Current Medications Chlorpromazine (Thorazine) 25 mg PO Q8H [facility] Last Admin: 12/11/18 13:43 Dose: 25 mg Enoxaparin Sodium (Lovenox) 40 mg SC DAILY [facility] Last Admin: 12/11/18 11:58 Dose: Not Given Sodium Chloride (Sodium Chloride 0.9%) 1,000 mls @ 50 mls/hr IV .Q20H [facility] Last Admin: 12/11/18 05:43 Dose: Not Given Insulin Aspart (Novolog Mix 70/30 (70/30 Units/Ml)) 30 units SC BIDAC [facility] Last Admin: 12/11/18 08:25 Dose: 30 units Insulin Human Regular (Novolin R) 0 unit SC ACHS [facility]; Protocol Last Admin: 12/11/18 12:16 Dose: 4 units Metformin HCl (Glucophage) 500 mg PO BID [facility] Last Admin: 12/11/18 09:54 Dose: 500 mg Metoclopramide HCl (Reglan) 10 mg PO ACTID PRN PRN Reason: Nausea/Vomiting Last Admin: 12/11/18 03:02 Dose: 10 mg Morphine Sulfate (Morphine) 1 mg IV Q4 PRN PRN Reason: Pain, moderate (4-7) Last Admin: 12/11/18 03:02 Dose: 1 mg Rosuvastatin Calcium (Crestor) 2.5 mg PO HS [facility] Last Admin: 12/10/18 21:04 Dose: 2.5 mg Results - Vital Signs Recent Vital Signs: Last Vital Signs Temp 98.6 F 12/11/18 09:14 Pulse 88 12/11/18 09:14 Resp 20 12/11/18 09:14 BP 127/74 12/11/18 09:14 Pulse Ox 96 12/11/18 09:14 - Labs Result Diagrams: 12/10/18 06:09 12/11/18 08:21 Labs: Laboratory Results - last 24 hr 12/10/18 12/10/18 12/10/18 15:53 15:54 16:05 Sodium Potassium Chloride Carbon Dioxide Anion Gap BUN Creatinine Est GFR ( Amer) Est GFR (Non-Af Amer) POC Glucose (mg/dL) 33 L* 36 L* 127 H Random Glucose Calcium 12/10/18 12/11/18 12/11/18 21:05 02:54 07:14 Sodium Potassium Chloride Carbon Dioxide Anion Gap BUN Creatinine Est GFR ( Amer) Est GFR (Non-Af Amer) POC Glucose (mg/dL) 229 H 372 H 422 H* Random Glucose Calcium 12/11/18 12/11/18 08:21 11:25 Sodium 120 L* Potassium 4.7 Chloride 82 L Carbon Dioxide 22 Anion Gap 21 H BUN 12 Creatinine 1.0 Est GFR ( Amer) > 60 Est GFR (Non-Af Amer) > 60 POC Glucose (mg/dL) 341 H Random Glucose 474 H* D Calcium 8.1 L
[2018-12-11 14:54] LABS: URIC ACID 5.5 mg/dL (3.5-8.5)
[2018-12-11] MEDS: Rosuvastatin Calcium 2.5 mg Tab PO SCH (21:35)
--- NOTE | 2018-12-12 02:16 | CON ---
DATE: 12/09/[address] Palafox to Dr. Giovanni Vaughan. I was called for a GI consultation by the admitting MD. The patient was seen and fully examined on 12/09/2018 for GI consultation as requested by the admitting medical staff. The entire chart is reviewed including, but not limited to the most recent lab and radiology study results, current and the previous medication lists, current and the previous medical events, allergy to medication list as well as all the available current and the previous medical records. Case discussed with the admitting medical staff as well as the patient and before and immediately after my GI consultation and physical examination on 12/09/2018. HISTORY OF PRESENT ILLNESS: This is a 58-year-old male, very well known case of me from previous admission, who was admitted to the hospital with recurrent episodes of severe abdominal pain, dyspepsia, nausea, vomiting, hiccups with poor oral intake, but no reported active GI bleeding. No chest pain or palpitation. No increase of shortness of breath. No chills or fever. PAST MEDICAL HISTORY: Including, but not limited to, 1. Peptic ulcer disease with gastric ulcer. 2. Poorly controlled diabetes mellitus with severe diabetic gastroparesis. 3. Reported GI bleeding before. 4. Hypertension. 5. Hyperlipidemia. 6. Peripheral vascular disease, status post right second and third toe partially amputation with big toe. 7. The patient recently had upper endoscopy with biopsy. FAMILY HISTORY: Unknown. SOCIAL HISTORY: No reported recent history of cigarette smoking, but positive for alcohol intake. CURRENT MEDICATIONS: Post-admission medication list was reviewed. ALLERGY TO MEDICATIONS: UNCLEAR. After being admitted to the hospital, the patient was found to have elevated blood glucose level with low sodium and low calcium as well as low total protein and albumin. Low hemoglobin and hematocrit than before was noted. PHYSICAL EXAMINATION: GENERAL: A 58-year-old male, appeared to be awake, alert and oriented, complaining of abdominal pain. VITAL SIGNS: Afebrile with pulse of 80, respiratory rate 18 to 20, and blood pressure 130/86. HEENT: Showed pale, mildly dry oral mucous membrane, nonicteric sclerae. LYMPH NODES: No lymphadenitis or lymphadenopathy. LUNGS: Few scattered mild crepitation. Breathing sounds are present bilaterally. HEART: Positive S1 and S2. ABDOMEN: Soft with mild distention with generalized moderate tenderness. No mass or organomegaly. No rebound tenderness or guarding. RECTAL: The patient refused. EXTREMITIES: Without significant clubbing or cyanosis, but mild lower extremity edematous changes. NEUROLOGIC: No reported new neurological deficits, sensory or motor. No reported new focal deficits. IMPRESSION: 1. Poorly controlled diabetes mellitus with severe diabetic gastroparesis. 2. Electrolyte imbalance with severe hyponatremia secondary to above. 3. Multiple past medical history as mentioned above with re-exacerbation of peptic ulcer disease. SUGGESTIONS: 1. Agree with your plan. 2. We will control diabetes mellitus. 3. Nephrology consultation due to persistent hyponatremia, which is most likely a result of his poorly controlled diabetes mellitus, some of his symptoms. 4. Renal and surgical consultation for potential gastric pacemaker stimulator. 5. Further recommendation to follow and Reglan IV as well as azithromycin IV should be kept in mind if the patient's symptoms continue. Thank you for letting me to participate in your patient's case management and recommendations to follow. Chad Palafox MD
--- NOTE | 2018-12-12 04:45 | CON ---
DATE: 12/11/2018 RENAL CONSULTATION LOCATION: The patient is located in room 371, bed A. REQUESTED BY: Giovanni Vaughan MD HISTORY OF PRESENT ILLNESS: Mr. Dunaway is about 58-year-old male with a past medical history significant for diabetes, diabetic gastroparesis, gastric ulcer, hypertension, hyperlipidemia, was admitted with chief complaints of nausea and vomiting on and off for the last 9 months. The patient is being treated for diabetic gastroparesis. Denies any chest pain or palpitation. Denies any fever or cough. Denies any abdominal pain. Denies any dysuria or frequency. Denies any recent weight loss or weight gain. As per the patient, he is vomiting whatever he eats and also is waiting for the gastric pacing for the diabetic gastroparesis. PAST MEDICAL HISTORY: Significant for diabetes for more than 20 years, diabetic gastroparesis, gastric ulcer, hypertension, and hyperlipidemia. PAST SURGICAL HISTORY: Appendectomy and also right second and third toe partial amputation and left big toe partial amputation. ALLERGIES: NO KNOWN DRUG ALLERGIES. SOCIAL HISTORY: The patient is an ex-smoker, quit about 6 years ago, and also ex-alcohol abuse, quit about 6 months ago. No drug abuse. PERSONAL HISTORY: Single and has two children. FAMILY HISTORY: Father is alive. Mother . MEDICATIONS: His home medications and hospital medications include as follows: Crestor 2.5 mg at bedtime, metformin 500 mg p.o. b.i.d., Lovenox 40 mg subcu daily, morphine 1 mg IV every 4 hours p.r.n., NovoLog 70/30 at 30 units subcu b.i.d. and a.c., Reglan 10 mg p.o. a.c. t.i.d., IV fluids with normal saline at 70 mL per hour, and Thorazine 25 mg p.o. every 8 hours. REVIEW OF SYSTEMS: Significant for nausea, vomiting, and also significant diabetic gastroparesis. All other review of systems is reviewed and are negative. PHYSICAL EXAMINATION: His vital signs and physical exam as follows: VITAL SIGNS: Blood pressure 127/74, pulse 88, respirations about 20, temperature 98.6, saturation 96%. Height 6 feet 5 inches and weight is 180 pounds. GENERAL: Mr. Dunaway is a 58-year-old male, moderately built, moderately nourished, not in acute distress. HEENT: Pupils are normal and reactive to light and accommodation. Conjunctivae pink. Sclerae anicteric. Tongue is moist, and trachea is midline. LUNGS: Symmetric on both sides. Bilateral breath sounds present. Clear to auscultation. CARDIOVASCULAR: [place] at the fifth intercostal space midclavicular line. S1, S2 audible. No murmur or gallop. ABDOMEN: Normal in appearance. Soft, tympanitic. No guarding. No rigidity. No hepatosplenomegaly. CENTRAL NERVOUS SYSTEM: The patient is alert, awake, and oriented x3. Nonfocal neuro examination. Cranial nerves II through XII grossly intact. Sensory and motor system is within normal limits. EXTREMITIES: No cyanosis, no clubbing, no edema. SKIN: Turgor is normal. LABORATORY DATA: Includes as follows: As of 12/10/2018, WBC 6.3, hemoglobin 13.2, hematocrit is 37.4, and platelets 472. Sodium 124, potassium 4.2, chloride 85, CO2 of 25, BUN 10, creatinine 1, glucose 286, calcium 8.9, phosphorus 3.1, and magnesium 1.8. Total bili 1.4, AST 31, ALT 24, alkaline phosphatase 89. Total protein 6.9, albumin is 4, lipase level is less than 10, amylase is 110. No other reports available. Other laboratory data as of 12/11/2018, sodium is 120, potassium 4.7, chloride 82, CO2 of 22, BUN 12, creatinine 1, glucose 474, and calcium is 8.1. ASSESSMENT: In summary, Mr. Dunaway is a 58-year-old middle-aged male with a history of longstanding diabetes, diabetic gastroparesis, questionable hypertension, and hyperlipidemia, who was admitted with nausea and vomiting on and off for the last 9 months, being treated for diabetic gastroparesis. Now, renal consult requested for hyponatremia. 1. Hyponatremia. Etiology is not clear. Rule out hypotonic hypovolemic hyponatremia versus syndrome of inappropriate antidiuretic hormone secretion. 2. Diabetes. 3. Diabetic gastroparesis. PLAN: We will check urine lytes, urine osmolality, urine creatinine and also TSH, serum cortisol and serum uric acid level. We will increase the IV fluids to normal saline at 70 mL/hour from 50 mL, and continue to monitor BMP and labs. We will adjust IV fluids depending upon the urine lytes. We will follow with you. Thank you for allowing me to participate in your patient's care. Repeat BMP in a.m. again. Cortes Bettencourt MD
[2018-12-12] MEDS: Sodium Chloride 0.9% 1,000 ML IV SCH ×3 (05:56→21:17)
[2018-12-12] MEDS: (Novolog Mix 70/30) Insulin Aspart/Insulin Aspar 100 units/ml SC SCH ×2 (08:04→17:33)
[2018-12-12] MEDS: (Novolin R) Insulin Human Regular 100 units/ml vial SC SCH ×4 (08:04→21:17)
[2018-12-12] MEDS: LIPASE/PROTEASE/AMYLASE 4,200 U ECC PO SCH ×3 (08:07→17:32)
--- NOTE | 2018-12-12 09:15 | PN ---
DATE: 12/12/2018 LOCATION: 371, bed A. SUBJECTIVE: This is a 58-year-old, seen and examined in rounds, tolerating oral intake for which I advanced his diet to soft bland diet. No reported actual vomiting or regurgitation. No hiccup this morning but mild nausea with dyspepsia as well as mild abdominal pain. The entire chart is reviewed including but not limited to the most recent lab and radiology study results, and today's blood glucose level reported to be 70. Rest of the lab results still pending. No reported chest pain, palpitation, significant increase of shortness of breath or evidence of active GI bleeding. No reported chills or fever. OBJECTIVE: GENERAL: A 58-year-old male awake, alert, oriented. VITAL SIGNS: Afebrile with pulse of 72, respiratory rate 20 to 22, blood pressure 116/66. HEENT: Showed pale, dry oral mucoid membrane. Nonicteric sclerae. LUNGS: Few scattered crepitation. Decreased air entry at bases. HEART: Positive S1 and S2. ABDOMEN: Soft with mild generalized tenderness. No mass or organomegaly. No rebound tenderness or guarding but midepigastric and midabdominal tenderness. EXTREMITIES: Without significant clubbing, cyanosis, or significant edema. NEUROLOGIC: No reported new neurological deficits, sensory or motor. IMPRESSION: 1. Poorly controlled diabetes mellitus. 2. Re-exacerbation of peptic ulcer disease with diabetic gastroparesis. 3. Known history of gastric ulcers. 4. Electrolyte imbalance with hyponatremia. 5. Peripheral vascular disease secondary to diabetes with partial amputation of the right second and third toe. 6. Status post appendectomy by history. SUGGESTIONS: 1. Agree with your plan. 2. Advance diet. 3. Nephrology consultation and followup is well appreciated. Further recommendation to follow. Chad Palafox MD
[2018-12-12 09:18] LABS: BLOOD UREA NITROGEN 11 mg/dL (9-20); CALCIUM 8.6 mg/dl (8.6-10.4); GFR NON-AFRICAN AMERICAN > 60
[2018-12-12] MEDS: Enoxaparin 40 mg Syringe SC SCH (09:59)
--- NOTE | 2018-12-12 14:24 | CP.PCM.PN ---
Subjective - Date & Time of Evaluation Date of Evaluation: 12/12/18 Time of Evaluation: 14:24 - Subjective Subjective: pt is seen and examined, follow up consult is dictated #[id number] c/w ivf x 24 hrs, bmp in am Objective - Vital Signs/Intake and Output Vital Signs (last 24 hours): Temp Pulse Resp BP Pulse Ox 97.9 F 67 20 109/62 97 12/12/18 00:01 12/12/18 00:01 12/12/18 00:01 12/12/18 00:01 12/12/18 00:01 Intake and Output: 12/12/18 12/12/18 06:59 18:59 Intake Total 1160 Balance 1160 - Medications Medications: Current Medications Chlorpromazine (Thorazine) 25 mg PO Q8H [facility] Last Admin: 12/12/18 14:02 Dose: 25 mg Enoxaparin Sodium (Lovenox) 40 mg SC DAILY [facility] Last Admin: 12/12/18 09:59 Dose: Not Given Sodium Chloride (Sodium Chloride 0.9%) 1,000 mls @ 70 mls/hr IV .[id number] [facility] Last Admin: 12/12/18 14:05 Dose: 70 mls/hr Insulin Aspart (Novolog Mix 70/30 (70/30 Units/Ml)) 30 units SC BIDAC [facility] Last Admin: 12/12/18 08:04 Dose: 30 units Insulin Human Regular (Novolin R) 0 unit SC ACHS [facility]; Protocol Last Admin: 12/12/18 11:40 Dose: 4 units Metformin HCl (Glucophage) 500 mg PO BID [facility] Last Admin: 12/12/18 09:59 Dose: Not Given Metoclopramide HCl (Reglan) 10 mg PO ACTID PRN PRN Reason: Nausea/Vomiting Last Admin: 12/12/18 08:03 Dose: 10 mg Morphine Sulfate (Morphine) 1 mg IV Q4 PRN PRN Reason: Pain, moderate (4-7) Last Admin: 12/11/18 14:39 Dose: 1 mg Rosuvastatin Calcium (Crestor) 2.5 mg PO HS [facility] Last Admin: 12/11/18 21:35 Dose: 2.5 mg - Labs Labs: 12/10/18 06:09 12/12/18 09:00
[2018-12-12] MEDS: Rosuvastatin Calcium 2.5 mg Tab PO SCH (21:16)
--- NOTE | 2018-12-12 21:59 | CP.PCM.HP ---
Present on Admission - Present on Admission Any Indicators Present on Admission: Yes History of Uncontrolled Diabetes: Yes Past Patient History - Infectious Disease Hx of Infectious Diseases: None - Tetanus Immunizations Tetanus Immunization: Unknown - Past Medical History & Family History Past Medical History?: Yes - Past Social History Smoking Status: Unknown If Ever Smoked - CARDIAC Hx Hypercholesterolemia: Yes Hx Hypertension: Yes - PULMONARY Hx Respiratory Disorders: No - NEUROLOGICAL Hx Neurological Disorder: No - HEENT Hx HEENT Problems: No - RENAL Hx Chronic Kidney Disease: No - ENDOCRINE/METABOLIC Hx Endocrine Disorders: Yes Hx Diabetes Mellitus Type 2: Yes - HEMATOLOGICAL/ONCOLOGICAL Hx Blood Disorders: No - INTEGUMENTARY Hx Dermatological Problems: Yes Other/Comment: HX: GANGRENE RIGHT FOOT TOE(GREAT) surgery. 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) surgery - MUSCULOSKELETAL/RHEUMATOLOGICAL Hx Falls: No - GASTROINTESTINAL Hx Gastritis: Yes - GENITOURINARY/GYNECOLOGICAL Hx Genitourinary Disorders: No - PSYCHIATRIC Hx Substance Use: No - SURGICAL HISTORY Hx Appendectomy: Yes (right 2nd and 3rd toes partially amputated ,and Big toe) - ANESTHESIA Hx Anesthesia: Yes Hx Anesthesia Reactions: No Hx Malignant Hyperthermia: No Meds Allergies/Adverse Reactions: Allergies Allergy/AdvReac Type Severity Reaction Status Date / Time No Known Allergies Allergy Verified 12/09/18 10:00 Results - Vital Signs Recent Vital Signs: Last Vital Signs Temp 98.2 F 12/12/18 15:30 Pulse 86 12/12/18 15:30 Resp 20 12/12/18 15:30 BP 110/72 12/12/18 15:30 Pulse Ox 98 12/12/18 15:30 - Labs Result Diagrams: 12/10/18 06:09 12/12/18 09:00 Labs: Laboratory Results - last 24 hr 12/12/18 12/12/18 12/12/18 02:10 02:14 07:11 Sodium Potassium Chloride Carbon Dioxide Anion Gap BUN Creatinine Est GFR ( Amer) Est GFR (Non-Af Amer) POC Glucose (mg/dL) 65 70 307 H Random Glucose Calcium Cortisol AM Sample 12/12/18 12/12/18 12/12/18 07:43 09:00 11:04 Sodium 131 L Potassium 4.8 Chloride 96 L Carbon Dioxide 27 Anion Gap 13 BUN 11 Creatinine 1.1 Est GFR ( Amer) > 60 Est GFR (Non-Af Amer) > 60 POC Glucose (mg/dL) 314 H Random Glucose 285 H D Calcium 8.6 Cortisol AM Sample 14.9 12/12/18 12/12/18 12/12/18 16:35 16:37 17:00 Sodium Potassium Chloride Carbon Dioxide Anion Gap BUN Creatinine Est GFR ( Amer) Est GFR (Non-Af Amer) POC Glucose (mg/dL) 43 L 44 L 84 Random Glucose Calcium Cortisol AM Sample 12/12/18 21:17 Sodium Potassium Chloride Carbon Dioxide Anion Gap BUN Creatinine Est GFR ( Amer) Est GFR (Non-Af Amer) POC Glucose (mg/dL) 192 H Random Glucose Calcium Cortisol AM Sample
--- NOTE | 2018-12-12 22:00 | CP.PCM.PN ---
Subjective - Date & Time of Evaluation Date of Evaluation: 12/11/18 Time of Evaluation: 07:20 - Subjective Subjective: dict Objective - Vital Signs/Intake and Output Vital Signs (last 24 hours): Temp Pulse Resp BP Pulse Ox 98.2 F 86 20 110/72 98 12/12/18 15:30 12/12/18 15:30 12/12/18 15:30 12/12/18 15:30 12/12/18 15:30 - Medications Medications: Current Medications Chlorpromazine (Thorazine) 25 mg PO Q8H [facility] Last Admin: 12/12/18 21:15 Dose: 25 mg Enoxaparin Sodium (Lovenox) 40 mg SC DAILY [facility] Last Admin: 12/12/18 09:59 Dose: Not Given Sodium Chloride (Sodium Chloride 0.9%) 1,000 mls @ 70 mls/hr IV .[id number] [facility] Last Admin: 12/12/18 21:17 Dose: Not Given Insulin Aspart (Novolog Mix 70/30 (70/30 Units/Ml)) 30 units SC BIDAC [facility] Last Admin: 12/12/18 17:33 Dose: Not Given Insulin Human Regular (Novolin R) 0 unit SC ACHS [facility]; Protocol Last Admin: 12/12/18 21:17 Dose: Not Given Metformin HCl (Glucophage) 500 mg PO BID [facility] Last Admin: 12/12/18 17:34 Dose: Not Given Metoclopramide HCl (Reglan) 10 mg PO ACTID PRN PRN Reason: Nausea/Vomiting Last Admin: 12/12/18 08:03 Dose: 10 mg Morphine Sulfate (Morphine) 1 mg IV Q4 PRN PRN Reason: Pain, moderate (4-7) Last Admin: 12/11/18 14:39 Dose: 1 mg Rosuvastatin Calcium (Crestor) 2.5 mg PO HS [facility] Last Admin: 12/12/18 21:16 Dose: 2.5 mg - Labs Labs: 12/10/18 06:09 12/12/18 09:00
--- NOTE | 2018-12-12 22:00 | CP.PCM.PN ---
Subjective - Date & Time of Evaluation Date of Evaluation: 12/12/18 Time of Evaluation: 07:20 - Subjective Subjective: dict Objective - Vital Signs/Intake and Output Vital Signs (last 24 hours): Temp Pulse Resp BP Pulse Ox 98.2 F 86 20 110/72 98 12/12/18 15:30 12/12/18 15:30 12/12/18 15:30 12/12/18 15:30 12/12/18 15:30 - Medications Medications: Current Medications Chlorpromazine (Thorazine) 25 mg PO Q8H [facility] Last Admin: 12/12/18 21:15 Dose: 25 mg Enoxaparin Sodium (Lovenox) 40 mg SC DAILY [facility] Last Admin: 12/12/18 09:59 Dose: Not Given Sodium Chloride (Sodium Chloride 0.9%) 1,000 mls @ 70 mls/hr IV .[id number] [facility] Last Admin: 12/12/18 21:17 Dose: Not Given Insulin Aspart (Novolog Mix 70/30 (70/30 Units/Ml)) 30 units SC BIDAC [facility] Last Admin: 12/12/18 17:33 Dose: Not Given Insulin Human Regular (Novolin R) 0 unit SC ACHS [facility]; Protocol Last Admin: 12/12/18 21:17 Dose: Not Given Metformin HCl (Glucophage) 500 mg PO BID [facility] Last Admin: 12/12/18 17:34 Dose: Not Given Metoclopramide HCl (Reglan) 10 mg PO ACTID PRN PRN Reason: Nausea/Vomiting Last Admin: 12/12/18 08:03 Dose: 10 mg Morphine Sulfate (Morphine) 1 mg IV Q4 PRN PRN Reason: Pain, moderate (4-7) Last Admin: 12/11/18 14:39 Dose: 1 mg Rosuvastatin Calcium (Crestor) 2.5 mg PO HS [facility] Last Admin: 12/12/18 21:16 Dose: 2.5 mg - Labs Labs: 12/10/18 06:09 12/12/18 09:00
--- NOTE | 2018-12-13 02:25 | PN ---
DATE: 12/12/2018 SUBJECTIVE: The patient is feeling better. He has decreased nausea and vomiting. He has decreased cough, and he is ready to try solid foods. PHYSICAL EXAMINATION: VITAL SIGNS: Blood pressure 136/88, pulse 91, respiratory rate 20, temperature 98. LUNGS: Clear. CARDIOVASCULAR SYSTEM: S1 and S2, regular. ABDOMEN: Soft. ASSESSMENT: 1. Intractable nausea, vomiting, and hiccup. 2. Dehydration. 3. Hypertension. 4. Poorly controlled diabetes. PLAN: Medical management. Monitor patient. We will proceed with diet if he tolerates. Discharge. Giovanni Vaughan MD
[2018-12-13] MEDS: Sodium Chloride 0.9% 1,000 ML IV SCH ×2 (04:14→11:10)
--- NOTE | 2018-12-13 04:14 | PN ---
DATE: 12/12/2018 FOLLOWUP RENAL CONSULTATION LOCATION: The patient is located in room 371, bed A. REQUESTED BY: Giovanni Vaughan MD REASON FOR FOLLOWUP: Hyponatremia, for further evaluation. HISTORY OF PRESENT ILLNESS: Mr. Dunaway is a 58-year-old middle-aged male with a past medical history significant for diabetes, diabetic gastroparesis, hyperlipidemia, questionable hypertension who was admitted with chief complaints of nausea and vomiting after eating for the last few months on and off. The patient was admitted with similar complaints and found to have hyponatremia. Renal consult was requested yesterday for evaluation of hyponatremia. The patient was found to have a urine sodium less than 20 and also started on IV fluids. Increase IV fluids 70 to 80 mL per hour. Now, serum sodium is improving. The patient is feeling much better, tolerating diet. No chest pain or palpitation. No fever, no cough. No abdominal pain. No nausea, vomiting, diarrhea. No urinary symptoms. No edema of the legs. PHYSICAL EXAMINATION: VITAL SIGNS: As follows: Blood pressure this morning 127/74, pulse 88, respirations 20, temperature 98.6, saturation 96%. Height 6 feet 5 inches, weight is 180 pounds. GENERAL: Mr. Dunaway is a 58-year-old middle-aged male, moderately built, moderately nourished, not in acute distress. HEENT: Pupils normal and reactive to light and accommodation. Conjunctivae pink. Sclerae anicteric. Tongue is moist. Trachea is midline. LUNGS: Symmetric on both sides. Bilateral breath sounds present. Clear to auscultation. CARDIOVASCULAR SYSTEM: [place] at the fifth intercostal space, midclavicular line. S1, S2 audible. No murmur or gallop. ABDOMEN: Normal in appearance. Soft, tympanitic. No guarding. No rigidity. No hepatosplenomegaly. CENTRAL NERVOUS SYSTEM: The patient is alert, awake, oriented x3. Nonfocal neuro examination. Cranial nerves II through XII grossly intact. Sensory and motor system is within normal limits. EXTREMITIES: No cyanosis, no clubbing, no edema. CURRENT MEDICATIONS: Include as follows: Crestor 2.5 mg p.o. at bedtime, metformin 500 mg p.o. b.i.d., Lovenox 40 mg subcu daily, morphine 1 mg IV every 4 hours p.r.n., Novolin R per sliding scale, NovoLog 70/30, 30 units subcu b.i.d., Reglan 10 mg p.o. a.c. t.i.d., IV fluids normal saline at 70 mL per hour, and Thorazine 25 mg p.o. every 8 hours. LABORATORY DATA: Include as follows: Sodium 131, potassium 4.8, chloride 96, CO2 of 27, BUN 11, creatinine 1.1, glucose 285, calcium 8.6. Serum cortisol is 14.9. Urine osmolality is 113. Urine creatinine is 31. Urine sodium is 9, serum osmolality 276, and serum uric acid level is 5.5. TSH is 3. IMPRESSION AND PLAN: In summary, Mr. Dunaway is a 58-year-old middle-aged male with a history of hypertension, hyperlipidemia, diabetic gastroparesis who was admitted with nausea, vomiting, unable to hold diet and vomiting with low serum sodium. 1. Hyponatremia. Most likely secondary to hypovolemic hyponatremia secondary to nausea, vomiting, and decreased intravascular volume. 2. Status post dehydration. 3. Uncontrolled diabetes. 4. Diabetic gastroparesis. Continue Reglan. Continue Thorazine p.r.n. Serum sodium is improving nicely. Continue IV fluids for another 24 hours. Repeat BMP in a.m. We will follow with you. Thank you for allowing me to participate in your patient's care. Cortes Bettencourt MD
--- NOTE | 2018-12-13 07:33 | PN ---
DATE: 12/11/2018 LOCATION: 371, bed A. SUBJECTIVE: This 58-year-old male seen and examined in rounds early today, appeared to be awake, alert and oriented, with much less abdominal pain. Noticed to drink excessive amount of water during this admission, but no reported actual vomiting with persistent nausea and dyspepsia. No chest pain, palpitation or evidence of active GI bleeding or significant increase of shortness of breath. The entire chart is reviewed including the most recent lab and radiology study results and the patient's sodium level found to be 120 with low chloride and CO2 content to be in the normal level with blood glucose level 474, calcium 8.1. PHYSICAL EXAMINATION: GENERAL: A 58-year-old male awake, alert, oriented. VITAL SIGNS: Afebrile with pulse of 78, respiratory rate 20 to 22 blood pressure 124/80. HEENT: Showed pale, dry oral mucous membrane. Nonicteric sclerae. LUNGS: Few scattered crepitation. Decreased air entry at bases. HEART: Positive S1 and S2. ABDOMEN: Soft with mild generalized tenderness. No mass or organomegaly. No rebound tenderness or guarding. EXTREMITIES: Without significant clubbing, cyanosis or edema. NEUROLOGIC: No reported new neurological deficits, sensory or motor. On record, the patient seen by the surgical team for potential gastric pacemaker stimulator insertion. Their recommendation is seen. IMPRESSION: 1. Poorly controlled diabetes mellitus. 2. Re-exacerbation of peptic ulcer disease with diabetic gastroparesis. 3. Hyponatremia, severe, secondary to above. The patient will need Endocrinology as well as Nephrology consult at this point. 4. Known history of peripheral vascular disease. 5. Status post appendectomy. SUGGESTIONS: 1. Continue current management. 2. May start erythromycin IV 500 mg every 6 hours if the patient's symptoms reoccur. 3. Further recommendations to follow. Chad Palafox MD
--- NOTE | 2018-12-13 07:33 | PN ---
DATE: 12/13/2018 LOCATION: 371, bed A. SUBJECTIVE: This is a 58-year-old male, seen and examined in rounds early in the morning without significant clinical changes or reported active bleeding, tolerating so far oral intake of solid food. No chest pain or palpitation. No reported significant shortness of breath, chills, or fever. No reported active GI bleeding. The most recent lab results yesterday showed blood glucose level of 192. Today's lab results still pending. PHYSICAL EXAMINATION: GENERAL: A 58-year-old male, awake, alert, oriented. VITAL SIGNS: Afebrile with heart rate of 90, respiratory rate 20 to 22, blood pressure 130/86. HEENT: Showed pale, dry oral mucoid membrane. Nonicteric sclerae. LUNGS: Few scattered crepitation. Decreased air entry at bases. HEART: Positive S1 and S2. ABDOMEN: Soft. Bowel sounds are present. No mass or organomegaly. No rebound tenderness or guarding. EXTREMITIES: Without significant clubbing, cyanosis, or edema. NEUROLOGIC: No reported new neurological deficits, sensory or motor. IMPRESSION: 1. Poorly controlled diabetes mellitus with diabetic gastroparesis. 2. Re-exacerbation of peptic ulcer disease with known history of gastric ulcer. 3. Electrolyte imbalance with hyponatremia, most likely secondary to the patient's episodes of hyperglycemia, hypovolemic status with nausea and vomiting. 4. Known history of peripheral vascular disease, most likely secondary to diabetic neuropathy. SUGGESTIONS: 1. Continue current management. 2. Again the patient will need gastric stimulator pacemaker to be done surgically. 3. Adjust oral intake. Further recommendations to follow. Chad Palafox MD
[2018-12-13 07:45] LABS: BLOOD UREA NITROGEN 17 mg/dL (9-20); CALCIUM 8.3 mg/dl (8.6-10.4); GFR NON-AFRICAN AMERICAN > 60
[2018-12-13 07:55] VITALS: BP 139/85; PULSE 75; TEMP 97.8; O2SAT 97
[2018-12-13] MEDS: (Novolin R) Insulin Human Regular 100 units/ml vial SC SCH ×2 (08:26→12:07)
[2018-12-13] MEDS: (Novolog Mix 70/30) Insulin Aspart/Insulin Aspar 100 units/ml SC SCH (08:26)
[2018-12-13] MEDS: LIPASE/PROTEASE/AMYLASE 4,200 U ECC PO SCH ×2 (08:27→12:07)
--- NOTE | 2018-12-13 09:47 | CP.PCM.PN ---
Subjective - Date & Time of Evaluation Date of Evaluation: 12/13/18 Time of Evaluation: 09:47 - Subjective Subjective: pt is seen and examined, follow up consult is dictated #[id number] corrected na is about 133 Objective - Vital Signs/Intake and Output Vital Signs (last 24 hours): Temp Pulse Resp BP Pulse Ox 97.8 F 75 20 139/85 97 12/13/18 07:54 12/13/18 07:54 12/13/18 07:54 12/13/18 07:54 12/13/18 07:54 Intake and Output: 12/13/18 12/13/18 06:59 18:59 Intake Total 1060 Balance 1060 - Medications Medications: Current Medications Chlorpromazine (Thorazine) 25 mg PO Q8H [facility] Last Admin: 12/13/18 05:39 Dose: 25 mg Enoxaparin Sodium (Lovenox) 40 mg SC DAILY [facility] Last Admin: 12/12/18 09:59 Dose: Not Given Sodium Chloride (Sodium Chloride 0.9%) 1,000 mls @ 70 mls/hr IV .[id number] [facility] Last Admin: 12/13/18 04:14 Dose: 70 mls/hr Insulin Aspart (Novolog Mix 70/30 (70/30 Units/Ml)) 30 units SC BIDAC [facility] Last Admin: 12/13/18 08:26 Dose: 30 units Insulin Human Regular (Novolin R) 0 unit SC ACHS [facility]; Protocol Last Admin: 12/13/18 08:26 Dose: 6 units Metformin HCl (Glucophage) 500 mg PO BID [facility] Last Admin: 12/12/18 17:34 Dose: Not Given Metoclopramide HCl (Reglan) 10 mg PO ACTID PRN PRN Reason: Nausea/Vomiting Last Admin: 12/13/18 02:45 Dose: 10 mg Morphine Sulfate (Morphine) 1 mg IV Q4 PRN PRN Reason: Pain, moderate (4-7) Last Admin: 12/11/18 14:39 Dose: 1 mg Rosuvastatin Calcium (Crestor) 2.5 mg PO HS [facility] Last Admin: 12/12/18 21:16 Dose: 2.5 mg - Labs Labs: 12/10/18 06:09 12/13/18 06:53
[2018-12-13] MEDS: Enoxaparin 40 mg Syringe SC SCH (11:06)
--- NOTE | 2018-12-13 16:47 | CP.PCM.PN ---
Subjective - Date & Time of Evaluation Date of Evaluation: 12/13/18 Time of Evaluation: 11:00 - Subjective Subjective: alert, awake, denies vomiting or abdominal pain, tolerates diet. Objective - Vital Signs/Intake and Output Vital Signs (last 24 hours): Temp Pulse Resp BP Pulse Ox 97.8 F 75 20 139/85 97 12/13/18 07:54 12/13/18 07:54 12/13/18 07:54 12/13/18 07:54 12/13/18 07:54 Intake and Output: 12/13/18 12/13/18 06:59 18:59 Intake Total 1060 1100 Balance 1060 1100 - Labs Labs: 12/10/18 06:09 12/13/18 06:53 Assessment and Plan - Assessment and Plan (Free Text) Assessment: 58 year old male patient admitted with nausea, vomiting, h/o DM, gastritis, seen and examined. Alert and orientedx3, tolerating diet, no vomiting. Discussed with DR Vaughan, plan to discharge home today, advised to follow uo with GI in 1 week. Reglan refilled as per request.
--- NOTE | 2018-12-13 22:15 | CP.PCM.DIS ---
Provider - Provider Date of Admission: 12/09/18 18:07 Attending physician: Giovanni Vaughan MD Consults: 12/09/18 22:42 Gastroenterology Consult Routine Comment: Consulting Provider: Chad Bliss Consulting Physician: Chad Bliss Reason for Consult: [email or web address].pain 12/10/18 11:09 Physician Consult Routine Comment: Consulting Provider: Gerardo Vázquez Consulting Physician: Gerardo Vázquez Reason for Consult: abdominal pain, vomiting 12/11/18 12:04 Nephrology Consult Routine Comment: Consulting Provider: Cortes Bettencourt Consulting Physician: Cortes Bettencourt Reason for Consult: low sodium Time Spent in preparation of Discharge (in minutes): 30 Hospital Course - Lab Results Lab Results: Most Recent Lab Values WBC 6.2 K/uL (4.8-10.8) 12/10/18 06:09 RBC 4.59 Mil/uL (4.40-5.90) 12/10/18 06:09 Hgb 13.2 g/dL (12.0-18.0) 12/10/18 06:09 Hct 37.4 % (35.0-51.0) 12/10/18 06:09 MCV 81.3 fL (80.0-94.0) 12/10/18 06:09 MCH 28.7 pg (27.0-31.0) 12/10/18 06:09 MCHC 35.3 g/dL (33.0-37.0) 12/10/18 06:09 RDW 15.1 % (11.5-14.5) H 12/10/18 06:09 Plt Count 472 K/uL (130-400) H 12/10/18 06:09 MPV 8.0 fL (7.2-11.7) 12/10/18 06:09 Sodium 130 mmol/L (132-148) L 12/13/18 06:53 Potassium 5.4 mmol/L (3.6-5.2) H 12/13/18 06:53 Chloride 94 mmol/L (98-107) L 12/13/18 06:53 Carbon Dioxide 26 mmol/L (22-30) 12/13/18 06:53 Anion Gap 15 (10-20) 12/13/18 06:53 BUN 17 mg/dL (9-20) 12/13/18 06:53 Creatinine 1.1 mg/dL (0.8-1.5) 12/13/18 06:53 Est GFR ( Amer) > 60 12/13/18 06:53 Est GFR (Non-Af Amer) > 60 12/13/18 06:53 POC Glucose (mg/dL) 355 mg/dL (65-110) H 12/13/18 11:34 Random Glucose 373 mg/dL (75-110) H D 12/13/18 06:53 Serum Osmolality 276 mosm/kg (272-300) 12/11/18 14:36 Uric Acid 5.5 mg/dL (3.5-8.5) 12/11/18 14:36 Calcium 8.3 mg/dl (8.6-10.4) L 12/13/18 06:53 Phosphorus 3.1 mg/dL (2.5-4.5) 12/10/18 06:09 Magnesium 1.8 mg/dL (1.6-2.3) 12/10/18 06:09 Total Bilirubin 1.4 mg/dL (0.2-1.3) H 12/10/18 06:09 AST 31 U/L (17-59) 12/10/18 06:09 ALT 24 U/L (21-72) 12/10/18 06:09 Alkaline Phosphatase 89 U/L (38-126) 12/10/18 06:09 Total Protein 6.9 g/dL (6.3-8.3) 12/10/18 06:09 Albumin 4.0 g/dL (3.5-5.0) 12/10/18 06:09 Globulin 2.9 gm/dL (2.2-3.9) 12/10/18 06:09 Albumin/Globulin Ratio 1.4 (1.0-2.1) 12/10/18 06:09 Amylase 110 U/L (30-110) D 12/10/18 06:09 Lipase < 10 U/L (23-300) L 12/10/18 06:09 TSH 3rd Generation 3.00 mIU/L (0.46-4.68) 12/11/18 14:36 Cortisol AM Sample 14.9 ug/dL (4.46-22.7) 12/12/18 07:43 Urine Osmolality 113 mosm/kg (300-1000) L 12/11/18 18:01 Ur Random Creatinine 31.0 mg/dL 12/11/18 18:01 Ur Random Sodium 9 mmol/L 12/11/18 18:01 Discharge Exam - Head Exam Head Exam: ATRAUMATIC, NORMOCEPHALIC Discharge Plan - Discharge Medications Prescriptions: Metoclopramide [Reglan] 10 mg PO ACTID #60 tab - Follow Up Plan Condition: GOOD Disposition: HOME/ ROUTINE Instructions: Nausea and Vomiting, Adult (DC) Referrals: Giovanni Vaughan MD [Staff Provider] -
--- NOTE | 2018-12-14 02:43 | PN ---
DATE: 12/13/2018 FOLLOWUP RENAL CONSULTATION LOCATION: The patient is located in room 371, bed A. REQUESTED BY: Giovanni Vaughan MD REASON FOR FOLLOWUP: Hyponatremia, for further evaluation. SUBJECTIVE: Mr. Dunaway is a 58-year-old middle-aged male with a past medical history significant for longstanding diabetes, diabetic gastroparesis, hyperlipidemia, was admitted with the chief complaints of nausea, vomiting and decreased p.o. intake. The patient is being treated for diabetic gastroparesis. The patient is feeling much better, tolerating diet now. Denies any nausea, vomiting. Denies any chest pain or palpitation. Denies any fever or cough. No abdominal pain. No nausea, vomiting, diarrhea. PHYSICAL EXAMINATION: VITAL SIGNS: As follows: Blood pressure 139/85, pulse 75, respirations 20, temperature 97.8, saturation 97%. GENERAL: Mr. Dunaway is a 58-year-old male, moderately built, moderately nourished, not in acute distress. HEENT: Pupils normal, reactive to light and accommodation. Conjunctivae pink. Sclerae are anicteric. Tongue is moist and trachea is midline. LUNGS: Symmetric on both sides. Bilateral breath sounds present. Clear to auscultation. CVS: [place] at the fifth intercostal space midclavicular line. S1, S2 audible. No murmur or gallop. ABDOMEN: Normal in appearance. Soft, tympanitic. No guarding. No rigidity. No hepatosplenomegaly. RADIO INTERFERENCE EXPERT: The patient is alert, awake and oriented x3. Nonfocal neuro examination. Cranial nerves II-XII grossly intact. Sensory and motor system is within normal limits. EXTREMITIES: No cyanosis, no clubbing, no edema. CURRENT MEDICATIONS: Include as follows, Thorazine 25 mg p.o. every 8 hours, Lovenox 40 mg subcu daily, IV fluids normal saline at 70 mL per hour, NovoLog 70/30, 30 units subcu b.i.d. and a.c., Novolin R per sliding scale, metformin 500 mg p.o. b.i.d., Reglan 10 mg p.o. a.c. t.i.d., morphine sulfate 1 mg IV every 4 hours p.r.n., and Crestor 2.5 mg at bedtime. LABORATORY DATA: Include as follows; as of 12/13/2018, sodium 130, potassium 5.4, chloride 94, CO2 of 26, BUN 17, creatinine 1.1, glucose 373, calcium 8.3, corrected sodium is about 133. ASSESSMENT: In summary, Mr. Dunaway is a 58-year-old male with history of diabetes, hyperlipidemia, diabetic gastroparesis, was admitted with nausea, vomiting and decreased p.o. intake on and off for the last 9 months. Renal consult was requested initially for hyponatremia. 1. Hyponatremia, most likely secondary to intravascular volume depleted secondary to decreased p.o. intake secondary to diabetic gastroparesis, nausea, vomiting. 2. Diabetes. 3. Diabetic gastroparesis. 4. Hyperlipidemia. PLAN: Continue his Crestor. His serum sodium improved with gentle intravenous hydration, now sodium is 133. We will discontinue intravenous fluids and we will sign off the case. Thank you for allowing me to participate in your patient's care. Cortes Bettencourt MD
--- NOTE | 2018-12-14 05:01 | DS ---
DISCHARGE DIAGNOSES: 1. Gastritis. 2. Poorly controlled diabetes. 3. Psychogenic polydipsia. 4. Hyponatremia. 5. Dehydration. 6. Poorly controlled diabetes. HOSPITAL COURSE: This is a 58-year-old -[place] male who is a smoker with history of hypertension, diabetes, multiple hospitalizations with nausea, vomiting, and intractable hiccups. The patient is noncompliant with diet, medication, and follow up. Anytime, he starts having nausea, he starts drinking lot of water, and he drops his sodium. The patient had similar incident. He was admitted to the floor. He was given IV fluids, IV normal saline, Accu-Cheks sliding scale, tight sugar control. The patient's condition started improving. He felt better. He is for discharge. Condition upon discharge is stable. PHYSICAL EXAMINATION: VITAL SIGNS: Blood pressure 139/85, pulse 75, respiratory rate 20, and temperature 97.8. LUNGS: Clear. CARDIOVASCULAR SYSTEM: S1 and S2, regular. ABDOMEN: Soft. PLAN: Discharge the patient. Normal outpatient followup. Monitor the patient. Giovanni Vaughan MD
== END 2018-12-13 16:20 | disposition home or self-care (01) | DRG 74 ==
LOC: C.ER 13:56 → C.9E 18:07 → C.3T 20:32
PROVIDERS: ADMIT Internal Medicine; ATTEND Internal Medicine
DX: E11.43 Type 2 diabetes mellitus with diabetic autonomic (poly)neuropathy (principal); E87.1 Hypo-osmolality and hyponatremia; K29.70 Gastritis, unspecified, without bleeding; F17.200 Nicotine dependence, unspecified, uncomplicated; E86.1 Hypovolemia; I10 Essential (primary) hypertension; E78.5 Hyperlipidemia, unspecified; E86.0 Dehydration; Z91.11 Patient's noncompliance with dietary regimen; E11.65 Type 2 diabetes mellitus with hyperglycemia; K31.84 Gastroparesis; E11.51 Type 2 diabetes mellitus with diabetic peripheral angiopathy without gangrene; K25.9 Gastric ulcer, unspecified as acute or chronic, without hemorrhage or perforation